=== PATIENT | male | born 1965 | race Caucasian/White ===

== ENCOUNTER 2019-11-27 12:15 | Emergency (ER) | payer OTHER, SELFPAY ==
[2019-11-27 12:19] VITALS: BP 104/76; PULSE 170; RESP 24; TEMP 35.6; O2SAT 98; BMI 30.5
[2019-11-27 12:22] VITALS: BP 104/76; PULSE 170; RESP 24; TEMP 35.6; O2SAT 98
--- NOTE | 2019-11-27 12:44 | EKG12_ITS ---
Test Reason : TACHY Blood Pressure : / mmHG Vent. Rate : 181 BPM Atrial Rate : 178 BPM P-R Int : 000 ms QRS Dur : 078 ms QT Int : 252 ms P-R-T Axes : 000 011 010 degrees QTc Int : 437 ms Supraventricular tachycardia Otherwise normal ECG Confirmed by CLEMENTINE AMADOR, NANCY ([id number]), editor publications ZELDA CONNORS ([id number]) on 11/28/2019 3:07:50 PM Referred By: CESAR Confirmed By:NANCY SPRING MD
--- NOTE | 2019-11-27 12:44 | RAD_ITS ---
STUDY: X-RAY CHEST REASON FOR EXAM: Male, 54 years old. Shortness of breath. Fever. TECHNIQUE: Frontal view of the chest COMPARISON: None. FINDINGS: The lungs are clear. There are no pleural effusions. There is no pneumothorax. The heart is normal in size. The visualized osseous structures are within normal limits. RAD/Chest 1 View (Portable) IMPRESSION: No acute thoracic pathology. Electronically Signed: Margarito Garsia, at 13:41 EDT Tel , Service support ,
--- NOTE | 2019-11-27 12:50 | ED.RN ---
with IV insertion, pt did valsalva maneuver and HR lowered from 180 to 110s.
--- NOTE | 2019-11-27 12:52 | ED.VIS.GEN ---
History of Present Illness Chief Complaint: General Illness Informant: Patient Onset: Days Maximum Severity: Mild Narrative: Patient complaints of rash that consist of small bumps diffusely over his body is primarily his fingertips and hands upper extremity some over the abdomen that began a few days ago indicates the rash is quite pruritic and itchy he is constantly scratching he reports a few days prior to onset of rash had a fever for 2 days it resolved he has had no exposure to coronavirus he has had no cough no chest pain or shortness of breath he is eating and drinking well his health status is normal. Indicates he has history of lymphoma and leukemia he last received chemotherapy in August he did not respond the way his oncologist wanted him to respond to the therapeutic agents and he is undergoing further evaluation by them He has had this rash in the past when he gets it is unclear etiology On arrival to the emergency department he is noted to have a heart rate of 180 he was placed on the monitor he was in a narrow complex rhythm he was able to Valsalva and he flipped into a sinus rhythm before further assessment of the rhythm He has no history no history of SVT A. fib V. tach or cardiovascular disorder he did not even recognize he was tachycardic Past Medical History - Allergies and Home Meds Allergies/Adverse Reactions: Allergies ibrutinib [From Imbruvica] Allergy (Verified 11/27/19 12:18) NEEDS FOLLOW-UP UNABLE TO FUNCTION rituximab Allergy (Verified 11/27/19 12:18) Shortness of breath Primary Care Physician: Regan Garcia MD [Primary Care Provider] - Past Medical History: - - Dana and lymphoma Smoking Status: Former smoker Review of Systems General: Denies: Chills, Fever, Sweats Eyes: Denies: Visual changes - bilaterally, Diplopia ENT: Denies: Rhinorrhea, Sore throat Cardiovascular: Denies: Chest pain, Palpitations Respiratory: Denies: Dyspnea, Cough, Dyspnea on exertion Gastrointestinal: Denies: Abdominal pain, Nausea, Vomiting, Diarrhea, Melena, Hematochezia Genitourinary: Denies: Dysuria, Hematuria, Frequency Musculoskeletal: Denies: Back pain, Extremity Pain Skin: Denies: Rash, Wounds Neurological: Denies: Headache, Weakness, Numbness Allergy: Reports: Uticaria Physical Exam Vital Signs/Narrative: Vital Signs Temp Pulse Resp BP Pulse Ox 05/10/20 12:22 96.1 F L 170 H 24 H 104/76 98 11/27/19 12:19 96.1 F L 170 H 24 H 104/76 98 General: Well nourished, Well developed, No Acute Distress Head: Normocephalic, Atraumatic Eyes: Perrl, EOMI ENT: Moist mucous membranes, No rhinorrhea Neck: Supple, Nontender Cardiovascular: Regular rate, Regular rhythm, No murmurs, - - There was tachycardic to 180 on the EKG and monitor it was narrow complex could have been A. 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 Respiratory: No distress, CTA bilaterally, Chest nontender Abdomen: Soft, Nontender, Nondistended, Normal bowel sounds Back: Nontender, Normal Inspection Extremities: Nontender, No edema Skin: Normal color, - - He has tiny papules measuring a millimeter or 2 primarily to the hands arm some over the anterior abdominal wall some to the lower extremities they are quite pruritic there is no petechia purpura skin breakdown he has chronic changes lower extremities that are unchanged for him no hives his airways unremarkable no lesions to mucous membranes Neurological: Alert, Oriented x3, Cranial nerves II-XII grossly intact, Normal Strength, Normal Sensation Psychological: Normal affect, Normal Mood Diagnostic/Tx/Re-eval - Medical Decision Making The patient presents complaining of pruritic rash his rapid narrow complex tachycardia resolved with Valsalva screening labs IV fluids Benadryl Pepcid Screening labs to include troponin all unremarkable EKG that showed the sinus rhythm about 120 no injury pattern chest x-ray unremarkable on reevaluation is resting comfortably discussed all the above with him he is comfortable with discharge home He understands a T1 exact etiology of the small pruritic bumps are unclear he will be started on Benadryl hydrocortisone ointment to the areas of most involved Pepcid he will be given 1 dose of prednisone 60 mg he will follow-up with his outpatient providers, now with regards to tachycardia he understands he was in a very rapid rhythm the etiology of which is unclear he understands he needs follow-up for that as well and he was given instructions see his outpatient providers and also the referral to cardiology and he will return for all the above symptoms, please note we did discuss coronavirus the patient's had no exposures no symptoms to suggest that in any way the symptoms he currently has is related to coronavirus Home stable Impression final pruritic rash etiology unclear tachycardia resolved ED Disposition - Plan for ED Patient: Diagnosis: Rash, Tachycardia Instructions: ED Erythema, ED Tachycardia PAT, ED Valsalva Maneuver Prescriptions: DiphenhydrAMINE [Benadryl] 25 mg PO TID PRN #14 cap Prescription Printed Famotidine [Pepcid] 20 mg PO BID #28 tab Prescription Printed Referrals: Regan Garcia MD [Primary Care Provider] - Leland Logan MD [STAFF PHYSICIAN] -
[2019-11-27 12:55] LABS: Absolute Lymphocyte Count 0.75 X10^3/uL (0.83-4.51); Absolute Neutrophil Count 2.6 X10^3/uL (2.0-7.7); Basophil# 0.01 X10^3/uL; Basophil% 0.3 % (0-1); Eosinophil# 0.15 X10^3/uL; Hematocrit 43.9 % (40-54); Hemoglobin 14.8 g/dL (13.0-16.5); Lymphocyte # 0.75 X10^3/ul (4.0); Lymphocyte % 20.2 % (19-41); Mean Corp Hgb Conc 33.7 g/dL (32-36); Mean Corpuscular Hgb 31.4 pg (27.0-32.0); Mean Platelet Vol. 10.1 fl (6.2-12.0); Monocyte# 0.16 X10^3/uL; Monocyte% 4.3 % (0-10); NRBC Flagged by Analyzer 0 % (0-5); Neutrophil # 2.63 X10^3/uL (2.7-7.7); Neutrophil % 70.9 % (47-70); POSITIVE COUNT YES; Platelet Count 98 K/mm3 (150-450); RBC Distribution Width CV 14.7 % (11.6-14.6); RBC Distribution Width SD 49.4 fl (35.1-43.9); Red Blood Count 4.72 M/mm3 (4.6-6.2); White Blood Count 3.7 K/mm3 (4.4-11.0)
[2019-11-27 12:56] LABS: Differential Indicated SCAN CRITERIA MET
[2019-11-27] MEDS: 0.9% Normal Saline 1,000 ML 999 ML IV (12:56)
[2019-11-27] MEDS: DiphenhydrAMINE 50 MG/ML Syringe 25 MG IV (12:57)
[2019-11-27 13:08] VITALS: BP 113/86; PULSE 119; RESP 19; O2SAT 96
[2019-11-27 13:09] LABS: Anion Gap 11 (5-15); BUN 29 mg/dL (7-18); BUN/Creat Ratio 21.5 RATIO (10-20); Calcium,Total 9.2 mg/dL (8.5-10.1); Chloride 104 mmol/L (98-107); Creatinine, Serum 1.35 mg/dL (0.70-1.30); EST Glomerular Filtration Rate 58 mL/min (>60); Est Glom Filt Rate - Afr Amer 70 mL/min (>60); Estimated Creatinine Clearance 67.06 ml/min; Glucose 111 mg/dL (74-106); Potassium 4.2 mmol/L (3.5-5.1); Sodium Level 139 mmol/L (136-145)
[2019-11-27 13:17] LABS: Platelet Estimate SLT DEC (ADEQ)
[2019-11-27] MEDS: Famotidine 200 MG/20 ML MDV 20 MG in 0.9% Normal Saline (Pres. free 8 ML 300 MG IV (13:48)
[2019-11-27 13:51] VITALS: BP 112/83; PULSE 98; RESP 14; TEMP 36.7; O2SAT 97
[2019-11-27 14:33] LABS: International Normalized Ratio 1.2; Prothrombin Time (Protime)PT. 14.2 SECONDS (11.7-14.9)
[2019-11-27] MEDS: predniSONE 20 MG Tablet 60 MG PO (14:33)
[2019-11-27 14:34] VITALS: BP 138/77; PULSE 81; RESP 16; TEMP 36.7; O2SAT 98
== END 2019-11-27 14:35 | disposition home or self-care (01) ==
LOC: ED 14:19
PROVIDERS: Emergency Provider Emergency Medicine; PCP Family Medicine
DX: R21 Rash and other nonspecific skin eruption (principal); R00.0 Tachycardia, unspecified; C85.90 Non-Hodgkin lymphoma, unspecified, unspecified site; C95.90 Leukemia, unspecified not having achieved remission; Z87.891 Personal history of nicotine dependence
CPT/HCPCS: 71045; 80048; 84484; 85025; 85610; 93005; 96361; 96374; 99285; J7030; A4216; J3490

== ENCOUNTER 2021-05-01 19:55 | Emergency (ER) | payer OTHER, SELFPAY ==
[2021-05-01 19:56] VITALS: BP 166/123; PULSE 90; RESP 18; TEMP 36.6; O2SAT 97; BMI 31.6
--- NOTE | 2021-05-01 19:59 | RAD_ITS ---
STUDY: X-RAY - LEFT RADIUS AND ULNA REASON FOR EXAM: Male, 55 years old. INJURY TECHNIQUE: Frontal and lateral view(s) of the forearm. COMPARISON: None. FINDINGS: There is no demonstrated soft tissue swelling. There is joint effusion at the elbow with elevation of the fat pads. There is acute fracture of the neck of the radius. Normal visualized ulna. RAD/Forearm 2 Views IMPRESSION: Proximal radius fracture. Electronically Signed: Bari Landrum MD at 21:50 EDT , Service support ,
--- NOTE | 2021-05-01 21:47 | EX.ED.UPPERE ---
HPI History of Present Illness Chief Complaint: Upper Extremity Injury Informant: patient Occured/Mechanism Mechanism/Context: Yes fall Onset/Context/Timing Onset: Today Current Severity: Moderate Maximum Severity: Moderate Narrative Narrative: Patient present secondary left arm pain. Patient states he got off his lawnmower today. As he was heading inside he tripped on the sidewalk and fell forward. He put both hands out to catch himself. He believes his left arm got caught underneath him. He is complaining of what feels like a still the left wrist and then this evening noted increased left elbow pain. He is left-hand dominant. He reports some slight abrasions to his knees but has been able to ambulate without difficulty. He denies striking his head. He is not on anticoagulants. [facility] Medical History (Updated 05/01/21 @ 21:[address] Rose Do MD) Anemia Chronic kidney disease (CKD) Hypersplenism Near syncope (09/2019) Non Hodgkin's lymphoma Obesity Pancytopenia Paroxysmal supraventricular tachycardia (11/27/19) Thrombocytopenia Home Medications metoprolol succinate 50 mg tablet,extended release 24 hr 50 mg PO DAILY #90 tab 02/12/21 [Rx Last Taken Unknown] hydrocodone-acetaminophen 1 tab PO Q6H PRN 4 Days #20 tab 05/01/21 [Rx Last Taken Unknown] Allergy/AdvReac Type Severity Reaction Status Date / Time ibrutinib [From Imbruvica] Allergy dyspnea/diz Verified 02/12/21 16:05 zness rituximab Allergy Shortness Verified 02/12/21 16:05 of breath Surgical History History of bone marrow biopsy Social History Smoking Status: Former smoker ROS ROS ED Constitutional Constitutional ED: Denies chills or fever(s) Eyes Eyes: Denies change in vision ENT ENT ED: Denies sore throat Cardiovascular Cardiovascular: Denies chest pain Respiratory/Chest Respiratory/Chest: Denies cough or dyspnea Gastrointestinal Gastrointestinal: Denies abdominal pain, diarrhea, nausea or vomiting Genitourinary Genitourinary ED: Denies dysuria Musculoskeletal Musculoskeletal: Reports other Details: Left upper extremity pain ; Denies back pain Integumentary Denies rash Neurologic Neurologic: Denies headache(s), paresthesias or weakness Allergic/Immunologic Allergic/Immunologic ED: Denies urticaria EXAM Physical Exam Const Vital Signs: 05/01/21 19:56 Temperature 97.8 F Temperature Source Oral Pulse Rate 90 Respiratory Rate 18 Blood Pressure 166/123 H Blood Pressure Mean 137 Pulse Ox 97 Oxygen Delivery Method Room Air Positive well nourished and well developed General Appearance ED: well developed Eyes PERRL and EOMs intact bilaterally Neck supple Chest Wall inspection of chest normal and palpation of chest normal Resp normal respiratory effort and clear to auscultation bilaterally Cardio regular rate and regular rhythm GI non-tender Palpation: soft Extremity Extremity Narrative: Tenderness location of the left elbow and left wrist. No obvious deformity. Difficulty with pronation supination secondary to pain. Strong distal pulses with normal cap refill distally. Normal sensation. Neuro oriented x3 Sensorium / Orientation: alert Skin Skin Narrative: Superficial abrasions noted over the anterior knees. No bony tenderness with full range of motion. MDM MDM MDM Narrative Medical decision making narrative: Left forearm x-rays were obtained per nursing protocol. Treatment and Re-Evaluation Comments:: Left forearm x-ray per my interpretation reveals a radial head fracture. X-ray results discussed with the patient. Patient is placed in a posterior splint with sugar tong. Following splint application patient has good cap refill distally. Prescription for [place] will be provided and patient referred to orthopedics for follow-up. Discharge Plan Triage Chief Complaint: Upper Extremity Injury ED Provider: Rose Do Dx/Rx/DC Orders Clinical Impression: Closed fracture of head of left radius Instructions: ED Elbow Fracture Prescriptions: New hydrocodone-acetaminophen 5-325 mg tablet 1 tab PO Q6H PRN (Reason: pain) 4 Days Qty: 20 RF: 0 No Action metoprolol succinate [Toprol XL] 50 mg tablet extended release 24 hr 50 mg PO DAILY Qty: 90 RF: 3 Primary Care Provider: Regan Garcia Referrals: Eric Matthews DO [STAFF PHYSICIAN] - 5-7 Days Regan Garica MD [Primary Care Provider] - Disposition Disposition: Home, Self Care
== END 2021-05-01 22:26 | disposition home or self-care (01) ==
PROVIDERS: Emergency Provider Emergency Medicine; PCP Family Medicine
DX: S52.122A Displaced fracture of head of left radius, initial encounter for closed fracture (principal); Z87.891 Personal history of nicotine dependence; W01.0XXA Fall on same level from slipping, tripping and stumbling without subsequent striking against object, initial encounter; Y93.01 Activity, walking, marching and hiking; Y92.096 Garden or yard of other non-institutional residence as the place of occurrence of the external cause; Y99.8 Other external cause status
CPT/HCPCS: 29125; 73090; 99283

== ENCOUNTER 2021-10-18 11:37 | Outpatient (CLI) | payer OTHER, SELFPAY | END 2021-10-18 23:59 | disposition home or self-care (01) | LOC: PSN 11:39 | PROVIDERS: PCP Family Medicine; Referring Provider Internal Medicine Cardiovascular Disease; Visit Provider Internal Medicine Cardiovascular Disease | DX: R00.2 Palpitations (principal) | CPT/HCPCS: 93225; 93226 ==

== ENCOUNTER → 2022-11-05 | Outpatient (CLI) | payer OTHER, SELFPAY ==
[2022-11-05 15:37] LABS: Absolute Lymphocyte Count 1.94 X10^3/uL (0.83-4.51); Absolute Neutrophil Count 1.5 X10^3/uL (2.0-7.7); Basophil# 0.03 X10^3/uL; Basophil% 0.8 % (0-1); Eosinophil# 0.14 X10^3/uL; Eosinophils% 3.7 % (0-5); Hematocrit 41.9 % (40-54); Hemoglobin 13.3 g/dL (13.0-16.5); Lymphocyte # 1.94 X10^3/ul (0.83-4.51); Lymphocyte % 51.9 % (19-41); Mean Corp Hgb Conc 31.7 g/dL (32-36); Mean Corpuscular Hgb 30.2 pg (27.0-32.0); Mean Platelet Vol. 9.7 fl (6.2-12.0); Monocyte# 0.15 X10^3/uL; NRBC Flagged by Analyzer 0 % (0-5); Neutrophil # 1.47 X10^3/uL (2.7-7.7); Neutrophil % 39.3 % (47-70); POSITIVE COUNT YES; Platelet Count 85 K/mm3 (150-450); RBC Distribution Width CV 14.4 % (11.6-14.6); RBC Distribution Width SD 49.4 fl (35.1-43.9); Red Blood Count 4.41 M/mm3 (4.6-6.2); White Blood Count 3.7 K/mm3 (4.4-11.0)
[2022-11-05 16:00] LABS: Differential Indicated SCAN CRITERIA MET
[2022-11-05 16:21] LABS: Platelet Estimate MOD DEC (ADEQ); Red Cell Morphology NORM C+C NORMAL (NORM C&C)
[2022-11-05 16:22] LABS: AST(SGOT) 22 U/L (15-37); Alanine Aminotransfer ALT/SGPT 26 U/L (16-61); Albumin, Serum 3.8 g/dL (3.2-5.0); Alkaline Phosphatase 86 U/L (45-117); Anion Gap 2 (5-15); Anisocytosis RARE; BUN 25 mg/dL (7-18); BUN/Creat Ratio 28.9 RATIO (10-20); Calcium,Total 8.8 mg/dL (8.5-10.1); Chloride 107 mmol/L (98-107); Cholesterol 124 mg/dL (200); Creatinine, Serum 0.87 mg/dL (0.70-1.30); EST Glomerular Filtration Rate 96 mL/min (>60); Est Glom Filt Rate - Afr Amer 116 mL/min (>60); Globulin 3.8 g/dL (2.2-4.2); Glucose 87 mg/dL (74-106); High Density Lipoprotein 33 mg/dL; Macrocytosis RARE; Potassium 3.8 mmol/L (3.5-5.1); Protein, Total 7.6 g/dL (6.4-8.2); Sodium Level 139 mmol/L (136-145); Triglycerides 60 mg/dL; Very Low Density Lipoprotein 12 mg/dL (5-40)
== END | disposition home or self-care (01) ==
LOC: BIMLAB 14:35
PROVIDERS: PCP Internal Medicine; Referring Provider Internal Medicine; Visit Provider Internal Medicine
DX: I10 Essential (primary) hypertension (principal)
CPT/HCPCS: 36415; 80053; 80061; 85025

== ENCOUNTER 2023-09-14 10:42 | Observation (INO) | payer OTHER, SELFPAY ==
[2023-09-14] VITALS (15 sets, daily range): BP systolic 111–145; BP diastolic 67–99; PULSE 70–114; RESP 15–22; TEMP 37.1–39.5; O2SAT 79–100; BMI 30.4; BMI 29.9
--- NOTE | 2023-09-14 11:19 | EKG12_ITS ---
Test Reason : Blood Pressure : / mmHG Vent. Rate : 102 BPM Atrial Rate : 102 BPM P-R Int : 144 ms QRS Dur : 086 ms QT Int : 332 ms P-R-T Axes : 006 025 027 degrees QTc Int : 432 ms Sinus tachycardia Nonspecific ST abnormality Abnormal ECG Confirmed by SHAHID AMADOR, VINCE ([id number]), graphic editor ROLANDA FIELDS ([id number]) on 09/21/2023 9:49:31 AM Referred By: Confirmed By:ADALID KEY MD
--- NOTE | 2023-09-14 11:19 | VDLE_ITS ---
Reason For Study: Left leg pain RIGHT LEFT CFV is compressible, spontaneous, phasic, GSV is normal. competent and demonstrates normal CFV is compressible, spontaneous, phasic, augmentation. competent, and demonstrates normal Procedure augmentation. This is a venous duplex using B-mode, color FV is compressible, spontaneous, phasic, flow and spectral Doppler. competent and demonstrates normal Exam performed portable in ED. augmentation. A preliminary report was called and/or faxed POP V is compressible, spontaneous, phasic, to ED. competent and demonstrates normal augmentation. T/P Trunk is compressible. PTV is compressible. LT PerV is compressible. VL/Venous Duplex US, Unilateral Interpretation Summary There is no evidence of left lower extremity deep vein thrombosis. Left great s aphenous vein appears patent and compressible segmentally. Normal flow patterns right common femoral vein Ordering Physician: Jennifer Lee Referring Physician: Jaquelin Dexter Performed By: Jeanne Joreg RVT
--- NOTE | 2023-09-14 11:19 | CT_ITS ---
STUDY: CTA CHEST REASON FOR EXAM: Male, 58 years old. Hypoxia RADIATION DOSAGE (If Supplied By Facility): CTDIvol = ( 15.40 ) mGy, DLP = ( 554.79 ) mGycm TECHNIQUE: The examination was performed with the intravenous administration of IV 100mL Isovue-370. Post-processing of the angiographic images was performed, with multiplanar reformation and 3D reconstruction. Individualized dose optimization techniques were used for this CT. COMPARISON: None. FINDINGS: Normal enhancement of the main pulmonary artery and right and left pulmonary arteries. Normal enhancement of the bilateral peripheral pulmonary arteries. There is no demonstrated pulmonary embolism. Normal thoracic aorta and visualized great vessels. There is no demonstrated aortic dissection. There are calcifications of the coronary arteries. There are visualized mediastinal lymph nodes, which are within normal size limits, and with normal morphology. Normal hilar regions. Normal visualized trachea and bronchi. Hyperinflation. Emphysematous changes. Normal pleura. Normal chest wall structures. Normal osseous structures. Splenomegaly. CT/CTA Chest W/WO Contrast IMPRESSION: No evidence of pulmonary embolism. Emphysematous changes. Electronically Signed: Tim Lowrey MD at 13:05 EST ,
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
[2023-09-14] MEDS: Ondansetron 4 MG/2 ML Vial IV (11:26)
[2023-09-14] MEDS: Morphine 4 MG/ML Syringe IV (11:26)
[2023-09-14] MEDS: 0.9% Normal Saline (1000mL) 1,000 ML 1000 ML IV (11:27)
[2023-09-14 11:40] LABS: Absolute Lymphocyte Count 1.99 X10^3/uL (0.83-4.51); Absolute Neutrophil Count 0.1 X10^3/uL (2.0-7.7); Eosinophil# 0.02 X10^3/uL; Eosinophils% 0.9 % (0-5); Hematocrit 16.6 % (40-54); Lymphocyte # 1.99 X10^3/ul (0.83-4.51); Lymphocyte % 89.6 % (19-41); Mean Corp Hgb Conc 31.3 g/dL (32-36); Mean Corpuscular Volume 98.8 fL (80-94); Mean Platelet Vol. 10.2 fl (6.2-12.0); Monocyte% 4.5 % (0-10); NRBC Flagged by Analyzer 0 % (0-5); Neutrophil # 0.11 X10^3/uL (2.7-7.7); POSITIVE COUNT YES; POSITIVE DIFFERENTIAL YES; POSITIVE MORPHOLOGY YES; RBC Distribution Width CV 22.7 % (11.6-14.6); Red Blood Count 1.68 M/mm3 (4.6-6.2); White Blood Count 2.2 K/mm3 (4.4-11.0)
[2023-09-14 11:43] LABS: Differential Indicated SCAN CRITERIA MET; Hemoglobin 5.2 g/dL (13.0-16.5); Platelet Count 47 K/mm3 (150-450)
[2023-09-14 12:01] LABS: ALB/GLOB Ratio 0.8 RATIO (0.9-2.4); AST(SGOT) 17 U/L (15-37); Alanine Aminotransfer ALT/SGPT 21 U/L (16-61); Albumin, Serum 3.4 g/dL (3.2-5.0); Alkaline Phosphatase 64 U/L (45-117); Anion Gap 7 (5-15); BUN 28 mg/dL (7-18); BUN/Creat Ratio 20.4 RATIO (10-20); Calcium,Total 8.6 mg/dL (8.5-10.1); Chloride 104 mmol/L (98-107); Creatinine, Serum 1.37 mg/dL (0.70-1.30); EST Glomerular Filtration Rate 56 mL/min (>60); Est Glom Filt Rate - Afr Amer 68 mL/min (>60); Estimated Creatinine Clearance 70.87 ml/min; Globulin 4.4 g/dL (2.2-4.2); Glucose 148 mg/dL (74-106); Potassium 3.6 mmol/L (3.5-5.1); Protein, Total 7.8 g/dL (6.4-8.2); Sodium Level 137 mmol/L (136-145); Troponin-I HS 11 pg/mL (3.0-78.0)
[2023-09-14 12:08] LABS: Differential Comment SCANNED; Hypochromasia 1+; Platelet Estimate MKD DEC (ADEQ); Reactive Lymphocyte 2+
[2023-09-14 12:09] LABS: Anisocytosis 2+; Macrocytosis 1+; Microcytosis 1+
--- NOTE | 2023-09-14 13:55 | ED.RN ---
1350: Pre blood admin VS HR 104 Pulse ox 99% 2 L NC Resp 16 BP 149/77 (94) Temp 102.9 ; ED provider notified
--- NOTE | 2023-09-14 14:07 | NURSING ---
MED SURG TERELETSKY NEUTROPENIC FEVER
--- NOTE | 2023-09-14 14:51 | HP.PCM.HOS_ITS ---
HPI - General General Date of Admission: 09/14/23 Date of Service: 09/14/23 Chief Complaint: Shortness of breath, generalized weakness HPI Narrative DOMI ENAMORADO, is a 58 M who presents to the emergency room at [facility] with complaints of generalized weakness and shortness of breath over the last 3 to 4 days. 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 I talked with Dr. Mitchell by phone today concerning his medical care, his hemoglobin on 09/01/2023 was 7.5. Patient has no diagnosis of pulmonary disease, he denies any history of COPD. Patient denies any black stools or any blood in his stool. Patient denies any history of gastrointestinal bleeding. Workup in the emergency room included a CT of the chest which showed no evidence of pulmonary embolism, there was no evidence of infiltrate, there was evidence of emphysematous changes on the CTA. Patient's white blood cell count was decreased, total neutrophil count was approximately 100, patient's hemoglobin was low at 5.2, platelet count was low at 47,000. Chemistry profile was abnormal for a creatinine of 1.37 and a BUN of 28. Urinalysis is pending at the time of this dictation. Patient was noted to be febrile in the emergency room with a temp of 100.1, patient required 2 L of oxygen via nasal cannula to keep his pulse ox above 90%. Patient will be admitted for neutropenic fever and severe anemia, he will be placed on meropenem, patient was typed and crossed for 2 units of packed red blood cells and will be transfused. I had a discussion with the patient regarding his CODE STATUS, patient does not want to be intubated or resuscitated if his heart should stop or he should stop breathing. [facility] Medical History Anemia Chronic kidney disease (CKD) Contact with and (suspected) exposure to other viral communicable diseases Hypersplenism Hypertension Near syncope (09/2019) Non Hodgkin's lymphoma Obesity Pancytopenia Paroxysmal supraventricular tachycardia (11/27/19) Thrombocytopenia Tobacco abuse counseling Home Medications NK 06/19/23 [History Last Taken Unknown] Allergy/AdvReac Type Severity Reaction Status Date / Time ibrutinib [From Imbruvica] Allergy dyspnea/diz Verified 09/14/23 10:44 zness rituximab Allergy Shortness Verified 09/14/23 10:44 of breath Surgical History History of bone marrow biopsy Social History Smoking Status: Former smoker ROS Constitutional Constitutional: Reports fatigue and weakness; Denies anorexia, change in weight, fever(s) or night sweats Eyes Eyes: Denies blurry vision, change in vision, discharge from eye(s) or eye pain Cardiovascular Cardiovascular: Reports dyspnea on exertion; Denies chest pain, claudication, edema or palpitations Respiratory/Chest Respiratory/Chest: Reports dyspnea, shortness of breath at rest and shortness of breath with exertion; Denies cough or hemoptysis Gastrointestinal Gastrointestinal: Denies abdominal pain, constipation, diarrhea, hematemesis, hematochezia, melena, nausea or vomiting Genitourinary Genitourinary: Denies dysuria, hematuria, urinary frequency, urinary hesitancy, urinary incontinence or urinary urgency Musculoskeletal Musculoskeletal: Denies back pain, joint pain, joint stiffness, joint swelling, myalgias or neck pain Neurologic Neurologic: Denies abnormal gait, abnormal speech, confusion, disequilibrium, dizziness, focal weakness, headache(s), loss of vision, numbness, other visual disturbances, paresthesias, syncope or tingling Psychiatric Psychiatric: Denies anxiety, cognitive impairment, depression, irritability, mood swings or suicidal ideation Endocrine Endocrinology: Denies change in body appearance, cold intolerance, excessive sweating, heat intolerance, polydipsia or polyuria Hematologic/Lymphatic Hematologic/Lymphatic: Denies none, anemia, easy bleeding, easy bruising or lymphadenopathy Allergic/Immunologic Allergic/Immunologic: Denies rhinitis, urticaria, eczemia or asthma Vital Signs Vital Signs Vital Signs: 09/14/23 10:44 09/14/23 11:16 09/14/23 12:00 Temperature 98.7 F 100.1 F H Temperature Source Temporal Oral Pulse Rate 114 H 109 H Respiratory Rate 20 H 15 Respiratory Effort Respiratory Depth Blood Pressure 129/76 H 141/90 H Blood Pressure Mean 93 107 Pulse Ox 79 98 100 Oxygen Delivery Method Room Air Nasal Cannula Nasal Cannula Oxygen Flow Rate (L/min) 2 2 09/14/23 11:19 Temperature Temperature Source Pulse Rate Respiratory Rate Respiratory Effort Short of Breath Labored Respiratory Depth Shallow Blood Pressure Blood Pressure Mean Pulse Ox Oxygen Delivery Method Nasal Cannula Oxygen Flow Rate (L/min) 2 Weight Weight: 102.058 kg Body Mass Index (BMI) 30.4 Physical Exam Const alert, oriented x3, no apparent distress and healthy appearing General Appearance: cooperative, well kempt and well developed Orientation / Consciousness: awake, oriented to person, oriented to place and oriented to time HEENT normocephalic and moist oral mucous membranes Eyes PERRL, EOMs intact bilaterally and conjunctivae normal Neck supple, no JVD, thyroid normal and no carotid bruits General: trachea midline Resp normal respiratory effort, no retractions, no use of accessory muscles and clear to auscultation bilaterally Auscultation: Negative for rales, rhonchi or wheezes Cardio regular rate, regular rhythm, S1 normal heart sound, S2 normal heart sound, no murmurs, no rub and no gallops GI normal to inspection, nondistended, normoactive bowel sounds, soft to palpation, non-tender and non-distended Extremity no clubbing, cyanosis or edema Skin no rashes or lesions noted General Skin Exam: no breakdown Neuro oriented x3, CN's II-XII intact bilaterally, no focal motor deficits and no sensory deficits noted Sensorium / Orientation: awake, alert, oriented to person, oriented to place and oriented to time Speech: speech normal Psych affect normal Results Lab / Micro Data 09/14/23 10:55 09/14/23 10:55 Labs: Laboratory Results - last 24 hr 09/14/23 10:55: WBC 2.2 L, RBC 1.68 L, Hgb 5.2 L*, Hct 16.6 L, MCV 98.8 H, MCH 31.0, MCHC 31.3 L, RDW Std Deviation 80.0 H, RDW Coeff of Екатерина 22.7 H, Plt Count 47 L*, MPV 10.2, Immature Gran % (Auto) 0.000, Neut % (Auto) 5.0 L, Lymph % (Auto) 89.6 H, [place] % (Auto) 4.5, Eos % (Auto) 0.9, Baso % (Auto) 0.0, Absolute Neuts (auto) 0.1 L, Absolute Lymphs (auto) 1.99, Nucleated RBC % 0, Differential Comment SCANNED, Diff Path Review May foll, Reactive Lymphocytes 2+, Platelet Estimate MKD DEC, Hypochromasia 1+, Anisocytosis 2+, Microcytosis 1+, Macrocytosis 1+, Sodium 137, Potassium 3.6, Chloride 104, Carbon Dioxide 26.0, Anion Gap 7, BUN 28 H, Creatinine 1.37 H, Estim Creat Clear Calc 70.87, Est GFR (MDRD) Af Amer 68, Est GFR (MDRD) Non-Af 56 L, BUN/Creatinine Ratio 20.4 H, Glucose 148 H, Calcium 8.6, Total Bilirubin 0.70, AST 17, ALT 21, Alkaline Phosphatase 64, Troponin I High Sens 11, Total Protein 7.8, Albumin 3.4, Globulin 4.4 H, Albumin/Globulin Ratio 0.8 L 09/14/23 12:05: Blood Type O POSITIVE, Antibody Screen NEGATIVE, Crossmatch See Detail Micro: Microbiology 09/14/23 12:16 Mucosa - Nose SARS-CoV-2, Influenza & RSV (PCR) - Final 09/14/23 12:35 Stool Stool Occult Blood (ATA) - Final Imaging Radiology Impression Chest CTA 09/14/23 11:19 IMPRESSION: No evidence of pulmonary embolism. Emphysematous changes. Electronically Signed: Tim Lowery MD at 13:05 [facility] Reading Location ID and State: [address] [place] [address] , Service support , Venous Doppler Study 09/14/23 11:19 Interpretation Summary There is no evidence of left lower extremity deep vein thrombosis. Left great saphenous vein appears patent and compressible segmentally. Normal flow patterns right common femoral vein Ordering Physician: Jennifer Lee Referring Physician: Jaquelin Dexter Performed By: Willinger, Jeanne, RVT Assessment & Plan Assessment/Plan (1) Severe anemia: PLAN: Plan 1. Pancytopenia with severe anemia-felt to be secondary to chemotherapy-induced anemia/pancytopenia on a backdrop of chronic anemia due to lymphoma-patient will be admitted to [facility] 3, he will be given 2 units of packed red blood cells, CBC will be repeated tomorrow. I will do iron studies on the patient and ferritin. #2 neutropenic fever-patient was placed on meropenem, since his last chemother apy was 09/01/2023, he is probably at the radha of his counts, labs will be monitored. Urinalysis is pending at this time. #3 hypoxia-mild, may be secondary to severe anemia-pulse ox will be monitored, oxygen will be titrated off if possible #4 chronic left leg pain and left-sided headache-patient states that he has a history of left leg pain and chronic headaches which are left-sided, he states that he usually takes ibuprofen for this but I told him that again because of his low platelet count he would not be able to take this medication I placed him on [place] instead. He states he was told his chemotherapy may be causing pain in his leg. #5 non-Hodgkin's lymphoma-under active chemotherapy of present time #6 elevated creatinine-BMP will be repeated tomorrow Total clinical time spent by myself addressing the patient's medical issues, reviewing all of his data, and collaborating with patient's care team: 55 minutes Charges/Coding Visit Charges Inpatient E&M: 92737 Init Hosp L2
[2023-09-14] MEDS: Meropenem 1 GM in 0.9% Normal Saline (100mL MB+) 100 ML IV ×2 (15:17→21:31)
[2023-09-14] MEDS: HYDROcodone Bitartrate/Apap 5/325 Tablet PO ×2 (16:22→20:27)
[2023-09-14] MEDS: 0.9% Normal Saline (1000mL) 1,000 ML 100 ML IV (16:32)
[2023-09-14 17:22] LABS: Ferritin 1548 ng/mL (26-388); Iron 42 ug/dL (65-175)
[2023-09-14 22:44] LABS: Bacteria 0 SEEN /hpf (None Seen); Mucous, Urine 0 SEEN /hpf (<or=2+); Squamous Epithelial Cells - UA 0 SEEN /hpf (0-5)
[2023-09-14 22:45] LABS: Color, Urine Yellow (Yellow); Glucose, Dipstick Normal (Normal); Ketone-Dipstick Negative (Negative); Leukocyte Esterase-Dipstick Negative /ul (Negative); Nitrite-Dipstick Negative (Negative); Occult Blood-Urine 25 /ul (Negative); Protein-Dipstick 30 mg/dl (Negative); Urine Bilirubin Dipstick Negative (Negative); Urine Clarity Clear (Clear); Urine Urobilinogen Normal (Normal)
[2023-09-14 23:04] LABS: Red Blood Cells-Urine 0-5 SEEN /hpf (0-5); White Blood Cells 0-5 SEEN /hpf (0-5)
[2023-09-15] VITALS (19 sets, daily range): BP systolic 105–128; BP diastolic 61–91; PULSE 89–149; RESP 15–18; TEMP 36.6–37.7; O2SAT 92–97
[2023-09-15] MEDS: HYDROcodone Bitartrate/Apap 5/325 Tablet PO ×4 (01:07→20:26)
[2023-09-15] MEDS: 0.9% Normal Saline (1000mL) 1,000 ML 100 ML IV ×2 (05:38→20:26)
[2023-09-15] MEDS: Meropenem 1 GM in 0.9% Normal Saline (100mL MB+) 100 ML IV ×3 (05:38→20:27)
[2023-09-15 07:23] LABS: Absolute Lymphocyte Count 1.36 X10^3/uL (0.83-4.51); Absolute Neutrophil Count 0.1 X10^3/uL (2.0-7.7); Eosinophil# 0.01 X10^3/uL; Eosinophils% 0.7 % (0-5); Hematocrit 15.2 % (40-54); Lymphocyte # 1.36 X10^3/ul (0.83-4.51); Lymphocyte % 88.9 % (19-41); Mean Corp Hgb Conc 32.9 g/dL (32-36); Mean Corpuscular Hgb 31.1 pg (27.0-32.0); Mean Corpuscular Volume 94.4 fL (80-94); Monocyte# 0.06 X10^3/uL; Monocyte% 3.9 % (0-10); NRBC Flagged by Analyzer 1.3 % (0-5); Neutrophil % 6.5 % (47-70); POSITIVE COUNT YES; POSITIVE DIFFERENTIAL YES; POSITIVE MORPHOLOGY YES; RBC Distribution Width CV 21.8 % (11.6-14.6); RBC Distribution Width SD 73.1 fl (35.1-43.9); Red Blood Count 1.61 M/mm3 (4.6-6.2); White Blood Count 1.5 K/mm3 (4.4-11.0)
[2023-09-15 07:31] LABS: Differential Indicated SCAN CRITERIA MET; Platelet Count 31 K/mm3 (150-450)
[2023-09-15 07:45] LABS: Anion Gap 7 (5-15); BUN 27 mg/dL (7-18); BUN/Creat Ratio 25.7 RATIO (10-20); Calcium,Total 7.5 mg/dL (8.5-10.1); Chloride 103 mmol/L (98-107); Creatinine, Serum 1.05 mg/dL (0.70-1.30); EST Glomerular Filtration Rate 77 mL/min (>60); Est Glom Filt Rate - Afr Amer 93 mL/min (>60); Estimated Creatinine Clearance 91.72 ml/min; Glucose 115 mg/dL (74-106); Potassium 4.1 mmol/L (3.5-5.1); Sodium Level 133 mmol/L (136-145)
[2023-09-15 09:29] LABS: Differential Comment SCANNED
[2023-09-15 09:30] LABS: Platelet Estimate MKD DEC (ADEQ); Reactive Lymphocyte 1+
[2023-09-15 09:31] LABS: Anisocytosis 2+; Macrocytosis 1+; Microcytosis 1+
--- NOTE | 2023-09-15 10:09 | CASEMGMT ---
TIM ST Assessment Face to Face with patient for initial transition planning/care coordination assessment. TIM ST introduced self and role at [facility], pt voices understanding. Pt is A&Ox4 and is resting comfortably in bed and is calm. Care providers, pharmacy, and demographics verified. Admitting dx: Neutropenic Fever LACE Strata: 2 PCP: Isacc Specialists: Joselo Preferred Pharmacy: [facility] Insurance: [employer] AC[employer] Prescription Benefit: Yes LNOK: Aretha Hastings () Living Arrangements: Pt lives with his and son (30 y/o with CF) in a single story home with a BM with HR and 3 steps to enter the home with no issues. ADLs/IADLs: Ind Transportation: Drives. Pt son and drive DME: Walk in shower with seat. Pt denies all other DME uses or needs. HHC/SNF: Denies history or needs. Pt?s goal: Home Plan: Pt 6-Click is 22. No therapy ordered. Pt states that he is wanting to DC home with no additional needs. Irina Levy RN, CM
[2023-09-15] MEDS: 0.9% Saline Lock 10 ML Syringe IV ×2 (11:56→18:26)
--- NOTE | 2023-09-15 12:19 | PN_ITS ---
Subjective Subjective Patient seen and examined. He had no active complaints. He denied any coughing, fever or chills, nausea or vomiting or any other symptoms. Review of systems otherwise negative. He is on room air. Objective Data Objective Data Vital Signs: Vital Signs Temp Pulse Resp BP Pulse Ox O2 Del Method O2 Flow Rate 98.2 F 106 H 18 113/76 92 Room Air 0.5 09/15/23 12:12 09/15/23 12:12 09/15/23 12:12 09/15/23 12:12 09/15/23 12:12 09/15/23 12:12 09/15/23 01:01 Oxygen Flow Rate (L/min) 0.5 Oxygen Delivery Method Room Air Weight: 221 lb 1.978 oz Body Mass Index (BMI) 29.9 Intake & Output: Intake and Output for Last 24 Hours 09/13/23 09/14/23 09/15/23 23:59 23:59 23:59 Intake Total 1121 / 1521 2340 / 2340 Output Total 200 / 675 875 / 875 Balance 921 / 846 1465 / 1465 Lab / Micro Data 09/15/23 07:04 09/15/23 07:04 Labs: Laboratory Results - last 24 hr 09/14/23 10:55: Iron 42 L, Ferritin 1548 H 09/14/23 12:05: Blood Type O POSITIVE, Antibody Screen NEGATIVE, Crossmatch See Detail 09/14/23 12:05: Crossmatch See Detail 09/14/23 22:35: Urine Color Yellow, Urine Clarity Clear, Urine pH 5.0, Ur Spe cific [place] 1.020, Urine Protein 30 H, Urine Glucose (UA) Normal, Urine Ket ones Negative, Urine Occult Blood 25 H, Urine Nitrite Negative, Urine Bilirubin Negative, Urine Urobilinogen Normal, Ur Leukocyte Esterase Negative, Urine RBC 0-5 SEEN, Urine WBC 0-5 SEEN, Ur Squamous Epith Cells 0 SEEN, Urine Bacteria 0 SEEN, Urine Mucus 0 SEEN 09/15/23 07:04: WBC 1.5 L*, RBC 1.61 L, Hgb 5.0 L*, Hct 15.2 L, MCV 94.4 H, MCH 31.1, MCHC 32.9 D, RDW Std Deviation 73.1 H, RDW Coeff of Екатерина 21.8 H, Plt Count 31 L*, MPV 10.0, Immature Gran % (Auto) 0.000, Neut % (Auto) 6.5 L, Lymph % (Auto) 88.9 H, [place] % (Auto) 3.9, Eos % (Auto) 0.7, Baso % (Auto) 0.0, Absolute Neuts (auto) 0.1 L, Absolute Lymphs (auto) 1.36, Nucleated RBC % 1.3, Differential Comment SCANNED, Diff Path Review May foll, Reactive Lymphocytes 1+, Platelet Estimate MKD DEC, Anisocytosis 2+, Microcytosis 1+, Macrocytosis 1+, Sodium 133 L, Potassium 4.1, Chloride 103, Carbon Dioxide 23.0, Anion Gap 7, BUN 27 H, Creatinine 1.05, Estim Creat Clear Calc 91.72, Est GFR (MDRD) Af Amer 93, Est GFR (MDRD) Non-Af 77, BUN/Creatinine Ratio 25.7 H, Glucose 115 H, Calcium 7.5 L Micro: Microbiology 09/14/23 14:25 Blood Culture (Wb) - Anticubital Right Blood Culture - Preliminary Gram negative lacey 09/14/23 14:55 Blood Culture (Wb) - Anticubital Right Blood Culture - Preliminary Gram negative lacey 09/14/23 12:16 Mucosa - Nose SARS-CoV-2, Influenza & RSV (PCR) - Final 09/14/23 12:35 Stool Stool Occult Blood (ATA) - Final Radiography Diagnostic Testing: Radiology Impression Chest CTA 09/14/23 11:19 IMPRESSION: No evidence of pulmonary embolism. Emphysematous changes. Electronically Signed: Tim Lowery MD at 13:05 EST , Venous Doppler Study 09/14/23 11:19 Interpretation Summary There is no evidence of left lower extremity deep vein thrombosis. Left great saphenous vein appears patent and compressible segmentally. Normal flow patterns right common femoral vein Ordering Physician: Jennifer Lee Referring Physician: Jaquelin Dexter Performed By: Jeanne Jorge RVT Physical Exam Const alert, oriented x3 and no apparent distress General Appearance: cooperative and well developed HEENT normocephalic, head/scalp atraumatic, moist oral mucous membranes and oropharynx normal Eyes PERRL and EOMs intact bilaterally Neck no lymphadenopathy and supple Lymph Lymphatic: no lymphadenopathy noted and no lymphedema noted Resp Resp Narrative: Mildly diminished breath sounds bibasilarly. No wheezes or crackles. On room air. Cardio regular rate, regular rhythm, S1 normal heart sound, S2 normal heart sound and no murmurs GI normal to inspection, nondistended, normoactive bowel sounds, soft to palpation, non-tender and non-distended Extremity normal capillary refill and no calf tenderness Extremity Narrative: has moderate edema with mild calf tenderness of LLE Skin General Skin Exam: no breakdown Neuro CN's II-XII intact bilaterally, no focal motor deficits and no sensory deficits noted Motor Exam: strength 5/5 throughout and general weakness Psych thought process normal and cooperative Appearance: appropriate Assessment & Plan Assessment/Plan (1) Neutropenic fever: PLAN: Plan #Neutropenic fever in the setting of metastatic NHL * Currently on IV meropenem. Blood cultures growing gram-negative rods. Last chemotherapy was 09/01/2023. * Urine showed no evidence of UTI. I would blood culture speciation and continue IV meropenem. #Pancytopenia * Hemoglobin was 5.2 and he was transfused 2 units of packed red blood cells on admission. Hemoglobin now 5. * Likely due to chemotherapy. Last chemotherapy was 09/01/2023. He received Granix afterwards. Repeat hemoglobin today is 5. Will transfuse another 2 units of packed red blood cells. * WBC is 1.5 and platelets are 31. I will watch to see very call. Will discuss with oncology about giving Granix whilst she is in the hospital. * #Chronic left leg pain: Duplex of the left lower extremity was negative for any evidence of DVT. Will monitor. P.o. Tylenol and p.o. oxycodone as needed. #History of metastatic non-Hodgkin's lymphoma: Currently on chemotherapy. Follow-up with oncology on outpatient basis. Elevated creatinine: resolved. CR is down to 1. DVT prophylaxis: SCDs Charges/Coding Visit Charges Inpatient E&M: 07916 Subs Hosp L3
[2023-09-15 13:18] LABS: Pathologist Review Reviewed
[2023-09-15 20:25] LABS: Hematocrit 20.4 % (40-54); Hemoglobin 6.6 g/dL (13.0-16.5); POSITIVE COUNT YES
[2023-09-16] VITALS (7 sets, daily range): BP systolic 113–142; BP diastolic 62–86; PULSE 86–120; RESP 16–18; TEMP 36.4–37.2; O2SAT 93–98
[2023-09-16] MEDS: 0.9% Saline Lock 10 ML Syringe IV ×2 (00:32→05:28)
[2023-09-16] MEDS: HYDROcodone Bitartrate/Apap 5/325 Tablet PO ×4 (00:32→21:21)
[2023-09-16] MEDS: Meropenem 1 GM in 0.9% Normal Saline (100mL MB+) 100 ML IV ×3 (05:26→21:21)
[2023-09-16 06:29] LABS: Absolute Lymphocyte Count 2.45 X10^3/uL (0.83-4.51); Absolute Neutrophil Count 0.1 X10^3/uL (2.0-7.7); Basophil# 0.01 X10^3/uL; Basophil% 0.4 % (0-1); Eosinophil# 0.02 X10^3/uL; Eosinophils% 0.8 % (0-5); Hematocrit 21.8 % (40-54); Hemoglobin 7.1 g/dL (13.0-16.5); Lymphocyte # 2.45 X10^3/ul (0.83-4.51); Lymphocyte % 93.2 % (19-41); Mean Corp Hgb Conc 32.6 g/dL (32-36); Mean Corpuscular Hgb 30.6 pg (27.0-32.0); Monocyte# 0.07 X10^3/uL; Monocyte% 2.7 % (0-10); NRBC Flagged by Analyzer 0 % (0-5); Neutrophil # 0.07 X10^3/uL (2.7-7.7); Neutrophil % 2.5 % (47-70); POSITIVE COUNT YES; POSITIVE DIFFERENTIAL YES; POSITIVE MORPHOLOGY YES; RBC Distribution Width CV 20.1 % (11.6-14.6); RBC Distribution Width SD 66.3 fl (35.1-43.9); Red Blood Count 2.32 M/mm3 (4.6-6.2); White Blood Count 2.6 K/mm3 (4.4-11.0)
[2023-09-16 06:40] LABS: Differential Indicated SCAN CRITERIA MET; Platelet Count 31 K/mm3 (150-450)
[2023-09-16 07:04] LABS: Anion Gap 4 (5-15); BUN 25 mg/dL (7-18); BUN/Creat Ratio 31.3 RATIO (10-20); Calcium,Total 8.4 mg/dL (8.5-10.1); Chloride 108 mmol/L (98-107); EST Glomerular Filtration Rate 105 mL/min (>60); Est Glom Filt Rate - Afr Amer 127 mL/min (>60); Estimated Creatinine Clearance 120.39 ml/min; Glucose 99 mg/dL (74-106); Potassium 3.9 mmol/L (3.5-5.1); Sodium Level 136 mmol/L (136-145)
[2023-09-16 07:50] LABS: Anisocytosis 1+; Differential Comment SCANNED
[2023-09-16 07:51] LABS: Platelet Estimate MKD DEC (ADEQ)
[2023-09-16] MEDS: 0.9% Normal Saline (1000mL) 1,000 ML 100 ML IV ×2 (08:37→18:08)
--- NOTE | 2023-09-16 12:52 | PN_ITS ---
Subjective Subjective Patient seen and examined. He complained of pain in his left hip. He said the pain was worse at night and prevented him from sleeping. He had no other complaints and review of systems otherwise negative. He has remained hemodynamically stable. Objective Data Objective Data Vital Signs: Vital Signs Temp Pulse Resp BP Pulse Ox O2 Del Method O2 Flow Rate 97.6 F L 86 18 124/62 H 96 Room Air 0.5 09/16/23 08:28 09/16/23 08:28 09/16/23 08:28 09/16/23 08:28 09/16/23 08:28 09/16/23 08:28 09/15/23 01:01 Oxygen Flow Rate (L/min) 0.5 Oxygen Delivery Method Room Air Weight: 221 lb 1.978 oz Body Mass Index (BMI) 29.9 Intake & Output: Intake and Output for Last 24 Hours 09/14/23 09/15/23 09/16/23 23:59 23:59 23:59 Intake Total 1121 / 1521 4510.33 / 4510.33 977.67 / 977.67 Output Total 200 / 675 875 / 875 Balance 921 / 846 3635.33 / 3635.33 977.67 / 977.67 Lab / Micro Data 09/16/23 05:55 09/16/23 05:55 Labs: Laboratory Results - last 24 hr 09/14/23 10:55: Diff Path Review Reviewed 09/14/23 12:05: Crossmatch See Detail 09/14/23 12:05: Crossmatch See Detail 09/15/23 20:10: Hgb 6.6 L, Hct 20.4 L 09/16/23 05:55: WBC 2.6 L, RBC 2.32 L, Hgb 7.1 L, Hct 21.8 L, MCV 94.0, MCH 30.6, MCHC 32.6, RDW Std Deviation 66.3 H, RDW Coeff of Екатерина 20.1 H, Plt Count 31 L*, MPV TNP, Immature Gran % (Auto) 0.400, Neut % (Auto) 2.5 L, Lymph % (Auto) 93.2 H, [place] % (Auto) 2.7, Eos % (Auto) 0.8, Baso % (Auto) 0.4, Absolute Neuts (auto) 0.1 L, Absolute Lymphs (auto) 2.45, Nucleated RBC % 0, Differential Comment SCANNED, Diff Path Review November foll, Platelet Estimate MKD DEC, Anisocytosis 1+, Sodium 136, Potassium 3.9, Chloride 108 H, Carbon Dioxide 24.0, Anion Gap 4 L, BUN 25 H, Creatinine 0.80, Estim Creat Clear Calc 120.39, Est GFR (MDRD) Af Amer 127, Est GFR (MDRD) Non-Af 105, BUN/Creatinine Ratio 31.3 H, Glucose 99, Calcium 8.4 L Micro: Microbiology 09/14/23 14:25 Blood Culture (Wb) - Anticubital Right Blood Culture - Preliminary Gram negative lacey 09/14/23 14:55 Blood Culture (Wb) - Anticubital Right Blood Culture - Preliminary Gram negative lacey 09/14/23 12:16 Mucosa - Nose SARS-CoV-2, Influenza & RSV (PCR) - Final 09/14/23 12:35 Stool Stool Occult Blood (ATA) - Final Physical Exam Const alert, oriented x3, no apparent distress and healthy appearing General Appearance: cooperative, well kempt and well developed Orientation / Consciousness: awake, oriented to person, oriented to place and oriented to time HEENT normocephalic, head/scalp atraumatic, moist oral mucous membranes and oropharynx normal Eyes PERRL, EOMs intact bilaterally and conjunctivae normal Neck no lymphadenopathy, supple, no JVD, thyroid normal and no carotid bruits General: trachea midline Lymph Lymphatic: no lymphadenopathy noted and no lymphedema noted Resp normal respiratory effort, no retractions, no use of accessory muscles and clear to auscultation bilaterally Resp Narrative: Mildly diminished breath sounds bibasilarly. No wheezes or crackles. On room air. Auscultation: Negative for rales, rhonchi or wheezes Cardio regular rate, regular rhythm, S1 normal heart sound, S2 normal heart sound, no murmurs, no rub and no gallops GI normal to inspection, nondistended, normoactive bowel sounds, soft to palpation, non-tender and non-distended Extremity normal capillary refill, no clubbing, cyanosis or edema and no calf tenderness Extremity Narrative: has moderate edema with mild calf tenderness of LLE Skin no rashes or lesions noted General Skin Exam: no breakdown Neuro oriented x3, CN's II-XII intact bilaterally, no focal motor deficits and no sensory deficits noted Sensorium / Orientation: awake, alert, oriented to person, oriented to place and oriented to time Speech: speech normal Motor Exam: strength 5/5 throughout and general weakness Psych thought process normal, cooperative and affect normal Appearance: appropriate Assessment & Plan Assessment/Plan (1) Neutropenic fever: PLAN: Plan #Neutropenic fever in the setting of metastatic NHL * Currently on IV meropenem. Blood cultures growing gram-negative rods. Last chemotherapy was 09/01/2023. * Urine showed no evidence of UTI. I would blood culture speciation and cont inue IV meropenem. #Pancytopenia * WBC today is 2.6 and hemoglobin is up to 7.1 after he was transfused with 2 units of packed red blood cells. Platelets are 31 stable. * Since WBC is improving, will hold off on giving Granix. Will monitor. Likely due to chemotherapy. * * #Chronic left leg pain: Duplex of the left lower extremity was negative for any evidence of DVT. Will monitor. P.o. Tylenol and p.o. oxycodone as needed. #History of metastatic non-Hodgkin's lymphoma: Currently on chemotherapy. Follow-up with oncology on outpatient basis. Elevated creatinine: resolved. DVT prophylaxis: SCDs Charges/Coding Visit Charges Inpatient E&M: 21937 Subs Hosp L3
[2023-09-16 13:40] LABS: Pathologist Review Reviewed
--- NOTE | 2023-09-16 14:30 | CASEMGMT ---
Social Work SW met with pt to verify advance directives. Pt states he has completed AD at the oncology office at [facility] and documents are on file there. Phone call to [facility] oncology and inquired about advance directives. Documents faxed to [facility] and SW placed on pt chart. Pt naming is Aretha Hastings as HCPOA. FLOYD Bailey
[2023-09-16] MEDS: MELATONIN 3 MG TABLET PO (21:21)
[2023-09-17] VITALS (7 sets, daily range): BP systolic 122–133; BP diastolic 75–96; PULSE 85–115; RESP 15–18; TEMP 36.4–36.9; O2SAT 95–100
[2023-09-17] MEDS: HYDROcodone Bitartrate/Apap 5/325 Tablet PO ×4 (01:30→14:32)
[2023-09-17] MEDS: 0.9% Normal Saline (1000mL) 1,000 ML 100 ML IV ×2 (04:08→14:27)
[2023-09-17] MEDS: Meropenem 1 GM in 0.9% Normal Saline (100mL MB+) 100 ML IV (06:50)
[2023-09-17 07:52] LABS: Absolute Lymphocyte Count 2.69 X10^3/uL (0.83-4.51); Absolute Neutrophil Count 0.1 X10^3/uL (2.0-7.7); Basophil# 0.01 X10^3/uL; Basophil% 0.3 % (0-1); Eosinophil# 0.02 X10^3/uL; Eosinophils% 0.7 % (0-5); Hematocrit 22.7 % (40-54); Hemoglobin 7.3 g/dL (13.0-16.5); Lymphocyte # 2.69 X10^3/ul (0.83-4.51); Lymphocyte % 94.1 % (19-41); Mean Corp Hgb Conc 32.2 g/dL (32-36); Mean Corpuscular Hgb 30.8 pg (27.0-32.0); Mean Corpuscular Volume 95.8 fL (80-94); Mean Platelet Vol. 9.9 fl (6.2-12.0); Monocyte# 0.06 X10^3/uL; Monocyte% 2.1 % (0-10); NRBC Flagged by Analyzer 0.7 % (0-5); Neutrophil # 0.08 X10^3/uL (2.7-7.7); Neutrophil % 2.8 % (47-70); POSITIVE COUNT YES; POSITIVE DIFFERENTIAL YES; POSITIVE MORPHOLOGY YES; Platelet Count 33 K/mm3 (150-450); RBC Distribution Width CV 19.7 % (11.6-14.6); RBC Distribution Width SD 67.1 fl (35.1-43.9); Red Blood Count 2.37 M/mm3 (4.6-6.2); White Blood Count 2.9 K/mm3 (4.4-11.0)
[2023-09-17 08:19] LABS: Differential Indicated SCAN CRITERIA MET
[2023-09-17 08:20] LABS: Anion Gap 4 (5-15); BUN 18 mg/dL (7-18); BUN/Creat Ratio 23.5 RATIO (10-20); Calcium,Total 8.1 mg/dL (8.5-10.1); Chloride 109 mmol/L (98-107); Creatinine, Serum 0.77 mg/dL (0.70-1.30); EST Glomerular Filtration Rate 110 mL/min (>60); Est Glom Filt Rate - Afr Amer 133 mL/min (>60); Estimated Creatinine Clearance 125.08 ml/min; Glucose 91 mg/dL (74-106); Potassium 3.6 mmol/L (3.5-5.1); Sodium Level 138 mmol/L (136-145)
--- NOTE | 2023-09-17 09:19 | PN_ITS ---
Subjective Subjective Patient seen and examined. He complained of some pain during the night which has now resolved. He has remained hemodynamically stable. BLood cultures growing E coli. Platelets, wbc and Hb have trended up slightly. Objective Data Objective Data Vital Signs: Vital Signs Temp Pulse Resp BP Pulse Ox O2 Del Method O2 Flow Rate 97.6 F L 110 H 16 126/89 H 97 Room Air 0.5 09/17/23 06:00 09/17/23 06:00 09/17/23 06:00 09/17/23 06:00 09/17/23 08:09 09/17/23 08:09 09/15/23 01:01 Oxygen Flow Rate (L/min) 0.5 Oxygen Delivery Method Room Air Weight: 221 lb 1.978 oz Body Mass Index (BMI) 29.9 Intake & Output: Intake and Output for Last 24 Hours 09/15/23 09/16/23 09/17/23 23:59 23:59 23:59 Intake Total 4510.33 / 4510.33 2049.34 / 2049.34 1120 / 1120 Output Total 875 / 875 Balance 3635.33 / 3635.33 2049.34 / 2049.34 1120 / 1120 Lab / Micro Data 09/17/23 07:00 09/17/23 07:00 Labs: Laboratory Results - last 24 hr 09/15/23 07:04: Diff Path Review Reviewed 09/17/23 07:00: WBC 2.9 L, RBC 2.37 L, Hgb 7.3 L, Hct 22.7 L, MCV 95.8 H, MCH 30.8, MCHC 32.2, RDW Std Deviation 67.1 H, RDW Coeff of Екатерина 19.7 H, Plt Count 33 L*, MPV 9.9, Immature Gran % (Auto) 0.000, Neut % (Auto) 2.8 L, Lymph % (Auto) 94.1 H, [place] % (Auto) 2.1, Eos % (Auto) 0.7, Baso % (Auto) 0.3, Absolute Neuts (auto) 0.1 L, Absolute Lymphs (auto) 2.69, Nucleated RBC % 0.7, Sodium 138, Potassium 3.6, Chloride 109 H, Carbon Dioxide 25.0, Anion Gap 4 L, BUN 18, Creatinine 0.77, Estim Creat Clear Calc 125.08, Est GFR (MDRD) Af Amer 133, Est GFR (MDRD) Non-Af 110, BUN/Creatinine Ratio 23.5 H, Glucose 91, Calcium 8.1 L Micro: Microbiology 09/14/23 14:55 Blood Culture (Wb) - Anticubital Right Blood Culture - Preliminary Gram negative lacey 09/14/23 14:25 Blood Culture (Wb) - Anticubital Right Blood Culture - Preliminary Escherichia coli 09/14/23 12:16 Mucosa - Nose SARS-CoV-2, Influenza & RSV (PCR) - Final 09/14/23 12:35 Stool Stool Occult Blood (ATA) - Final Physical Exam Const alert, oriented x3, no apparent distress and healthy appearing General Appearance: cooperative, well kempt and well developed Orientation / Consciousness: awake, oriented to person, oriented to place and oriented to time HEENT normocephalic, head/scalp atraumatic, moist oral mucous membranes and oropharynx normal Eyes PERRL, EOMs intact bilaterally and conjunctivae normal Neck no lymphadenopathy, supple, no JVD, thyroid normal and no carotid bruits General: trachea midline Lymph Lymphatic: no lymphadenopathy noted and no lymphedema noted Resp normal respiratory effort, no retractions, no use of accessory muscles and clear to auscultation bilaterally Resp Narrative: Mildly diminished breath sounds bibasilarly. No wheezes or crackles. On room air. Auscultation: Negative for rales, rhonchi or wheezes Cardio regular rate, regular rhythm, S1 normal heart sound, S2 normal heart sound, no murmurs, no rub and no gallops GI normal to inspection, nondistended, normoactive bowel sounds, soft to palpation, non-tender and non-distended Extremity normal capillary refill, no clubbing, cyanosis or edema and no calf tenderness Extremity Narrative: has moderate edema with mild calf tenderness of LLE Skin no rashes or lesions noted General Skin Exam: no breakdown Neuro oriented x3, CN's II-XII intact bilaterally, no focal motor deficits and no sensory deficits noted Sensorium / Orientation: awake, alert, oriented to person, oriented to place and oriented to time Speech: speech normal Motor Exam: strength 5/5 throughout and general weakness Psych thought process normal, cooperative and affect normal Appearance: appropriate Assessment & Plan Assessment/Plan (1) Neutropenic fever: PLAN: Plan #Neutropenic fever in the setting of metastatic NHL * Currently on IV meropenem. Blood cultures growing E.coli. Last chemotherapy was 09/01/2023. * Urine showed no evidence of UTI. * IV meropenem de-escalated to IV zosyn per sensitivities. ID consulted; await recs * repeat blood cultures ordered #Pancytopenia * WBC today is up to 2.9, with Hb of 7.3 and platelets of 33. * has received 2 units of PRBCs during this admission * WBC is improving. However per discussion with Dr. Josue, his absolute neutrophil count is still on 0.1 so we will start on subcu Granix 480 mg daily with goal of 0.5 absolute neutrophil count. * #Chronic left leg pain: Duplex of the left lower extremity was negative for any evidence of DVT. Will monitor. P.o. Tylenol and p.o. oxycodone as needed. #History of metastatic non-Hodgkin's lymphoma: Currently on chemotherapy. Follow-up with oncology on outpatient basis. Elevated creatinine: resolved. DVT prophylaxis: SCDs Charges/Coding Visit Charges Inpatient E&M: 89157 Subs Hosp L2
[2023-09-17 10:25] LABS: Differential Comment SCANNED; Platelet Estimate MKD DEC (ADEQ); Reactive Lymphocyte 2+
[2023-09-17 10:26] LABS: Anisocytosis 2+; Macrocytosis 1+; Microcytosis 1+
--- NOTE | 2023-09-17 10:31 | CT_ITS ---
STUDY: CT ABDOMEN AND PELVIS WITH CONTRAST REASON FOR EXAM: Male, 58 years old. [facility] RADIATION DOSAGE (If Supplied By Facility): CTDIvol = ( 17.88 ) mGy, DLP = ( 1190.93 ) mGycm TECHNIQUE: Transaxial images were obtained from the dome of the diaphragm to the symphysis pubis without oral contrast. Oral and amp; IV Gastrografin and amp; 100mL Isovue-300 was administered. Sagittal and coronal images were reconstructed. Individualized dose optimization techniques were used for this CT. COMPARISON: None. FINDINGS: Small bilateral pleural effusions with bibasilar atelectasis. The visualized portions of the heart are within normal limits. There is hepatomegaly with diffuse hepatic enlargement. Fatty infiltration of the liver. Multiple small layering gallstones along the dependent wall of the gallbladder. There is moderate splenomegaly. Normal pancreas. Normal bilateral adrenal glands. Normal right kidney. There is a 3.7 cm x 4.1 cm cyst in the anterior midportion of the left kidney. There is also evidence of a 1.5 cm cyst in the lateral midportion of the left kidney. There is a small hiatal hernia. Normal small intestine. There are multiple colonic diverticula consistent with diverticulosis. The appendix is visualized and appears normal. There is scattered atherosclerotic calcification of the abdominal aorta, without a demonstrated aneurysm. Normal inferior vena cava. Normal retroperitoneum. Normal urinary bladder. There are prostatic calcifications. There is a right-sided inguinal hernia containing adipose tissue. Small umbilical hernia containing fat. There are mild degenerative changes of the visualized lumbar spine. CT/Abdomen/Pelvis WITH Contrast IMPRESSION: Hepatosplenomegaly. Multiple layering gallstones. Fatty infiltration of liver. Sigmoid diverticulosis. Small bilateral pleural effusions with bibasilar atelectasis. Left renal cysts. Electronically Signed: Tim Lowery MD at 13:08 EST ,
--- NOTE | 2023-09-17 10:31 | PCM.CONS.GEN ---
Assessment & Plan Assessment/Plan (1) Neutropenic fever: PLAN: Neutropenic fever after recent chemo with ecoli bacteremia - temps improved. ANC remains 0.1. Did get neulasta with chemo per patient. No sinus tenderness, no thrush. Will check CT abd/pelvis due to ecoli bacteremia. Possible it was due to gut translocation. Cont zosyn. Will follow, thank you (2) Non-Hodgkin lymphoma: (3) E. coli bacteremia: HPI Consult Data Date of Consult: 09/17/23 HPI Narrative Reason for Consultation: neutropenic fever HPI Narrative: DOMI ENAMORADO, is a 58 M with NHL, last chemo was 09/01. No port or picc in place. Developed fever, chills, L sided headache, increased edema, dyspnea. Came to ED, admitted on meropenem. Fever to 103.1 here. Feeling better overall, temps improved, headache slightly better. Mild congestion. No sinus pain. Son has cystic fibrosis and gets frequent infections. No abd pain, no dysuria, no n/v/d. Now abx changed to zosyn. Full ROS performed and neg except as noted above. [facility] Medical History Anemia Chronic kidney disease (CKD) Contact with and (suspected) exposure to other viral communicable diseases Hypersplenism Hypertension Near syncope (09/2019) Non Hodgkin's lymphoma Obesity Pancytopenia Paroxysmal supraventricular tachycardia (11/27/19) Thrombocytopenia Tobacco abuse counseling Home Medications acyclovir 400 mg tablet 400 mg PO Q12H cold sore 09/14/23 [History Last Taken 09/14/23] Allergy/AdvReac Type Severity Reaction Status Date / Time ibrutinib [From Imbruvica] Allergy dyspnea/diz Verified 09/14/23 10:44 zness rituximab Allergy Shortness Verified 09/14/23 10:44 of breath Surgical History History of bone marrow biopsy Social History Smoking Status: Former smoker Physical Exam Const alert, oriented x3 and no apparent distress General Appearance: cooperative HEENT normocephalic and head/scalp atraumatic HEENT Narrative: No thrush or oral lesions Eyes PERRL and EOMs intact bilaterally Neck supple and No nodes Resp normal air movement and clear to auscultation bilaterally Cardio regular rate and regular rhythm GI soft to palpation, non-tender and non-distended Extremity General Extremity: edema Skin no rashes or lesions noted Neuro CN's II-XII intact bilaterally Lab / Micro Data Attestation: I reviewed the patient's lab results. 09/17/23 07:00 09/17/23 07:00 Labs: Laboratory Results - last 24 hr 09/15/23 07:04: Diff Path Review Reviewed 09/17/23 07:00: WBC 2.9 L, RBC 2.37 L, Hgb 7.3 L, Hct 22.7 L, MCV 95.8 H, MCH 30.8, MCHC 32.2, RDW Std Deviation 67.1 H, RDW Coeff of Екатерина 19.7 H, Plt Count 33 L*, MPV 9.9, Immature Gran % (Auto) 0.000, Neut % (Auto) 2.8 L, Lymph % (Auto) 94.1 H, [place] % (Auto) 2.1, Eos % (Auto) 0.7, Baso % (Auto) 0.3, Absolute Neuts (auto) 0.1 L, Absolute Lymphs (auto) 2.69, Nucleated RBC % 0.7, Differential Comment SCANNED, Diff Path Review May foll, Reactive Lymphocytes 2+, Platelet Estimate MKD DEC, Anisocytosis 2+, Microcytosis 1+, Macrocytosis 1+, Sodium 138, Potassium 3.6, Chloride 109 H, Carbon Dioxide 25.0, Anion Gap 4 L, BUN 18, Creatinine 0.77, Estim Creat Clear Calc 125.08, Est GFR (MDRD) Af Amer 133, Est GFR (MDRD) Non-Af 110, BUN/Creatinine Ratio 23.5 H, Glucose 91, Calcium 8.1 L Micro: Microbiology 09/14/23 14:55 Blood Culture (Wb) - Anticubital Right Blood Culture - Preliminary Gram negative lacey 09/14/23 14:25 Blood Culture (Wb) - Anticubital Right Blood Culture - Preliminary Escherichia coli
[2023-09-17] MEDS: TBO-FILGRASTIM 480 MCG/0.8 ML ML SC (14:28)
[2023-09-17] MEDS: Piperacil/Tazobactam 3.375 GM in 0.9% Normal Saline (50mL MB+) 50 ML IV ×2 (14:28→21:32)
[2023-09-17] MEDS: 0.9% Saline Lock 10 ML Syringe IV ×2 (14:30→17:28)
[2023-09-17] MEDS: Morphine 4 MG/ML Syringe IV ×2 (17:28→21:30)
[2023-09-18] VITALS (15 sets, daily range): BP systolic 116–174; BP diastolic 77–102; PULSE 70–89; RESP 15–22; TEMP 36.7–37.2; O2SAT 94–100
[2023-09-18] MEDS: HYDROcodone Bitartrate/Apap 5/325 Tablet PO ×3 (00:12→10:16)
[2023-09-18] MEDS: 0.9% Normal Saline (1000mL) 1,000 ML 100 ML IV (02:34)
[2023-09-18] MEDS: Piperacil/Tazobactam 3.375 GM in 0.9% Normal Saline (50mL MB+) 50 ML IV (05:52)
[2023-09-18 07:02] LABS: Anion Gap 4 (5-15); BUN 16 mg/dL (7-18); BUN/Creat Ratio 24.5 RATIO (10-20); Chloride 110 mmol/L (98-107); Creatinine, Serum 0.65 mg/dL (0.70-1.30); EST Glomerular Filtration Rate 132 mL/min (>60); Est Glom Filt Rate - Afr Amer 160 mL/min (>60); Estimated Creatinine Clearance 148.17 ml/min; Glucose 96 mg/dL (74-106); Sodium Level 140 mmol/L (136-145)
[2023-09-18 07:55] LABS: Absolute Lymphocyte Count 2.87 X10^3/uL (0.83-4.51); Absolute Neutrophil Count 0.1 X10^3/uL (2.0-7.7); Basophil# 0.01 X10^3/uL; Basophil% 0.3 % (0-1); Eosinophil# 0.02 X10^3/uL; Eosinophils% 0.6 % (0-5); Hematocrit 20.2 % (40-54); Hemoglobin 6.4 g/dL (13.0-16.5); Lymphocyte # 2.87 X10^3/ul (0.83-4.51); Lymphocyte % 93.2 % (19-41); Mean Corp Hgb Conc 31.7 g/dL (32-36); Mean Corpuscular Hgb 30.3 pg (27.0-32.0); Mean Corpuscular Volume 95.7 fL (80-94); Mean Platelet Vol. 9.8 fl (6.2-12.0); Monocyte# 0.09 X10^3/uL; Monocyte% 2.9 % (0-10); NRBC Flagged by Analyzer 0 % (0-5); Neutrophil # 0.09 X10^3/uL (2.7-7.7); POSITIVE COUNT YES; POSITIVE DIFFERENTIAL YES; POSITIVE MORPHOLOGY YES; RBC Distribution Width CV 19.7 % (11.6-14.6); RBC Distribution Width SD 66.4 fl (35.1-43.9); Red Blood Count 2.11 M/mm3 (4.6-6.2); White Blood Count 3.1 K/mm3 (4.4-11.0)
[2023-09-18 08:21] LABS: Differential Indicated SCAN CRITERIA MET; Platelet Count 30 K/mm3 (150-450)
[2023-09-18 08:22] LABS: Anisocytosis 2+; Differential Comment SCANNED; Macrocytosis 1+; Microcytosis 1+
--- NOTE | 2023-09-18 09:32 | VDLE_ITS ---
Reason For Study: Left leg swelling RIGHT LEFT CFV is compressible, spontaneous, phasic, GSV is normal. competent and demonstrates normal CFV is compressible, spontaneous, phasic, augmentation. competent, and demonstrates normal Procedure augmentation. This is a venous duplex using B-mode, color FV is compressible, spontaneous, phasic, flow and spectral Doppler. competent and demonstrates normal Exam performed portable in patient room. augmentation. A preliminary report was called and/or faxed POP V is compressible, spontaneous, phasic, to Terry DUMONT. competent and demonstrates normal augmentation. T/P Trunk is compressible. PTV is compressible. LT PerV is compressible. VL/Venous Duplex US, Unilateral Interpretation Summary Deep veins of the left lower extremity are patent and compressible segmentally. There is no evidence of left lower extremity deep vein thrombosis. The left great saphenous vein taj ears patent and compressible segmentally. Ordering Physician: Chiara Burger Referring Physician: Jaquelin Dexter Performed By: Jeanne Jorge RVT
[2023-09-18 10:10] LABS: Pathologist Review Reviewed
[2023-09-18] MEDS: TBO-FILGRASTIM 480 MCG/0.8 ML ML SC (10:16)
--- NOTE | 2023-09-18 12:37 | PCM.PROGNOTE ---
Subjective Subjective Patient seen and examined. He still complained of pain and swelling in his RLE. Review of systems is otherwise negative. WBC is trending upwards to 3.1, with hb of 6.4 and platelets are down to 30. Objective Data Objective Data Vital Signs: Vital Signs Temp Pulse Resp BP Pulse Ox O2 Del Method O2 Flow Rate 98.1 F 79 15 116/77 95 Room Air 0.5 09/18/23 02:31 09/18/23 02:31 09/18/23 04:00 09/18/23 02:31 09/18/23 04:00 09/18/23 04:00 09/15/23 01:01 Oxygen Flow Rate (L/min) 0.5 Oxygen Delivery Method Room Air Weight: 221 lb 1.978 oz Body Mass Index (BMI) 29.9 Intake & Output: Intake and Output for Last 24 Hours 09/16/23 09/17/23 09/18/23 23:59 23:59 23:59 Intake Total 2049.34 / 2049.34 2544.25 / 2544.25 1300 / 1300 Balance 2049.34 / 2049.34 2544.25 / 2544.25 1300 / 1300 Lab / Micro Data 09/18/23 05:53 09/18/23 05:53 Labs: Laboratory Results - last 24 hr 09/16/23 05:55: Diff Path Review Reviewed 09/18/23 05:53: WBC 3.1 L, RBC 2.11 L, Hgb 6.4 L, Hct 20.2 L, MCV 95.7 H, MCH 30.3, MCHC 31.7 L, RDW Std Deviation 66.4 H, RDW Coeff of Екатерина 19.7 H, Plt Count 30 L*, MPV 9.8, Immature Gran % (Auto) 0.000, Neut % (Auto) 3.0 L, Lymph % (Auto) 93.2 H, [place] % (Auto) 2.9, Eos % (Auto) 0.6, Baso % (Auto) 0.3, Absolute Neuts (auto) 0.1 L, Absolute Lymphs (auto) 2.87, Nucleated RBC % 0, Differential Comment SCANNED, Diff Path Review May foll, Anisocytosis 2+, Microcytosis 1+, Macrocytosis 1+, Sodium 140, Potassium 4.0, Chloride 110 H, Carbon Dioxide 26.0, Anion Gap 4 L, BUN 16, Creatinine 0.65 L, Estim Creat Clear Calc 148.17, Est GFR (MDRD) Af Amer 160, Est GFR (MDRD) Non-Af 132, BUN/Creatinine Ratio 24.5 H, Glucose 96, Calcium 8.0 L 09/18/23 10:43: Blood Type O POSITIVE, Antibody Screen NEGATIVE, Crossmatch See Detail Micro: Microbiology 09/14/23 14:55 Blood Culture (Wb) - Anticubital Right Blood Culture - Final Gram negative lacey 09/14/23 14:25 Blood Culture (Wb) - Anticubital Right Blood Culture - Final Escherichia coli 09/14/23 12:16 Mucosa - Nose SARS-CoV-2, Influenza & RSV (PCR) - Final 09/14/23 12:35 Stool Stool Occult Blood (ATA) - Final Radiography Diagnostic Testing: Radiology Impression Abdomen/Pelvis CT 09/17/23 10:31 IMPRESSION: Hepatosplenomegaly. Multiple layering gallstones. Fatty infiltration of liver. Sigmoid diverticulosis. Small bilateral pleural effusions with bibasilar atelectasis. Left renal cysts. Electronically Signed: Tim Lowery MD at 13:08 EST , Physical Exam Const alert, oriented x3, no apparent distress and healthy appearing General Appearance: cooperative, well kempt and well developed Orientation / Consciousness: awake, oriented to person, oriented to place and oriented to time HEENT normocephalic, head/scalp atraumatic, moist oral mucous membranes and oropharynx normal Eyes PERRL, EOMs intact bilaterally and conjunctivae normal Neck no lymphadenopathy, supple, no JVD, thyroid normal and no carotid bruits General: trachea midline Lymph Lymphatic: no lymphadenopathy noted and no lymphedema noted Resp normal respiratory effort, normal air movement, no retractions, no use of accessory muscles and clear to auscultation bilaterally Auscultation: Negative for rales, rhonchi or wheezes Cardio regular rate, regular rhythm, S1 normal heart sound, S2 normal heart sound, no murmurs, no rub and no gallops GI normal to inspection, nondistended, normoactive bowel sounds, soft to palpation, non-tender and non-distended Extremity normal capillary refill and no clubbing, cyanosis or edema Extremity Narrative: significant swelling of RLE. No calf tenderness. Swelling extending from right ankle all the way to right groin. Skin no rashes or lesions noted General Skin Exam: no breakdown Neuro oriented x3, CN's II-XII intact bilaterally, no focal motor deficits and no sensory deficits noted Sensorium / Orientation: awake, alert, oriented to person, oriented to place and oriented to time Speech: speech normal Motor Exam: strength 5/5 throughout and general weakness Psych thought process normal, cooperative and affect normal Appearance: appropriate Assessment & Plan Assessment/Plan (1) Neutropenic fever: PLAN: Plan #Neutropenic fever in the setting of metastatic NHL Blood cultures positive for E. coli. Now on IV Zosyn. ID consulted yesterday, CT of the abdomen and pelvis done due to E. coli bacteremia. CT abdomen and pelvis showed hepatosplenomegaly with multiple layering gallstones and fatty infiltration of the liver as well as sigmoid diverticulosis and small bilateral pleural effusions with bibasilar atelectasis. Remains on IV Zosyn. Repeat blood cultures pending. #Pancytopenia WBC today is up to 3.1; hemoglobin did drop to 6.8 and platelets are down to 30. Patient started on subcu Granix for 80 mg daily yesterday after discussion with Dr. Josue as his absolute neutrophil count was 0.1. Absolute neutrophil count remains 0.1 today. Will transfuse due to units of packed red blood cells today. Hematology consulted. Patient request. Dr. Kimble informed verbally. #Chronic left leg pain: Duplex of the left lower extremity was negative for any evidence of DVT. Left lower extremity swelling and edema has worsened today and is extending up to his thigh. Will get another duplex today. #History of metastatic non-Hodgkin's lymphoma: Currently on chemotherapy. Follow-up with oncology on outpatient basis. Elevated creatinine: resolved. DVT prophylaxis: SCDs Charges/Coding Visit Charges Inpatient E&M: 04940 [facility] Hosp L3
--- NOTE | 2023-09-18 13:23 | ONC.CONSULT ---
Assessment & Plan Assessment/Plan (1) Neutropenic fever: Status: Acute Code(s): D70.9 - Neutropenia, unspecified; R50.81 - Fever presenting with conditions classified elsewhere (2) E. coli bacteremia: Status: Acute Code(s): R78.81 - Bacteremia; B96.20 - Unspecified Escherichia coli [E. coli] as the cause of diseases classified elsewhere (3) Pancytopenia: Status: Acute Code(s): D61.818 - Other pancytopenia (4) Non Hodgkin's lymphoma: Status: Chronic Code(s): C85.90 - Non-Hodgkin lymphoma, unspecified, unspecified site Qualifiers: Lymphoma site: multiple regions Non-Hodgkin lymphoma type: non-follicular Non-follicular lymphoma type: other non-follicular type Qualified Code(s): C83.88 - Other non-follicular lymphoma, lymph nodes of multiple sites Plan: Impression: -Pancytopenia--Counts were low starting therapy 09/01-ANC was 0.13, Hgb 7.5 g/dL and plts were 70K. Now 2+ weeks out from first dose obinutuzumab and bendamustine. Expect counts will slowly recover and explained to him may take several more days for ANC to recover since he likely had extensive marrow involvement from lymphoma. -E. coli sepsis on Zosyn. -Reviewed CT images--spleen measures about 18.5 cm in craniocaudal dimension. -Left leg swelling. No DVT. Plan: -Continue filgrastim. -Continue Zosyn. -Monitor counts. -RBC transfusion for Hgb <?7.0 g/dL or higher if symptomatic or bleeding. -Transfuse 1 unit platelets for platelet < 10K or < 20 if febrile or < 50 if actively bleeding. -Discussed wiht Dr. Burger--will get CT left leg. HPI Consult Data Date of Service:: 09/18/23 PCP / Referring Provider: Dr. Jaquelin Dexter MD Attending: Dr. 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 Recently started therapy with obinutuzumab and Bendamustine. Received first infusion of both drugs on 09/01 and 09/02. He received Neulasta on 09/03. Admitted 09/14 After presenting to the ED with complaints of headache, cough and exertional dyspnea. He also had a complaint of left leg swelling from knee distally. He has a history of chronic swelling of the leg but it became more swollen and painful. Ultrasound demonstrated no evidence of deep or superficial thrombus in the left leg. He was found to be pancytopenic and admitted. Blood cultures positive for E. coli. He is currently on Zosyn. E. coli is sensitive. He has been frustrated because his counts have remained low since the time of admission. No fever. Left leg swelling progressing more proximally. Good appetite with no nausea. Loose stool today. Advanced Directives Power of Audit Mgr: Yes Living Will: Yes [facility] Medical History Anemia Chronic kidney disease (CKD) Contact with and (suspected) exposure to other viral communicable diseases Hypersplenism Hypertension Near syncope (09/2019) Non Hodgkin's lymphoma Obesity Pancytopenia Paroxysmal supraventricular tachycardia (11/27/19) Thrombocytopenia Tobacco abuse counseling Home Medications acyclovir 400 mg tablet 400 mg PO Q12H cold sore 09/14/23 [History Last Taken 09/14/23] Allergy/AdvReac Type Severity Reaction Status Date / Time ibrutinib [From Imbruvica] Allergy dyspnea/diz Verified 09/14/23 10:44 zness rituximab Allergy Shortness Verified 09/14/23 10:44 of breath Surgical History History of bone marrow biopsy Social History Smoking Status: Former smoker Physical Exam Const General Appearance: comfortable Eyes no scleral icterus Neck no lymphadenopathy Resp normal respiratory effort Cardio regular rhythm GI GI Narrative: Abdomen is obese and nondistended. Not able to palpate deeply enough to appreciate splenomegaly. Hepatomegaly non-tender. Extremity Extremity Narrative: Left lower extremity is swollen diffusely. Tender. Not warmer than right leg. Very good TP and DP pulses. Vital Signs Temperature 98.1 F 09/18/23 02:31 Temperature Source Oral 09/18/23 02:31 Pulse Rate 79 09/18/23 02:31 Pulse Strength Weak (1+) 09/17/23 22:00 Respiratory Rate 15 09/18/23 04:00 Respiratory Effort Normal, Non-Labored 09/18/23 04:00 Respiratory Depth Normal 09/18/23 04:00 Respiratory Pattern Normal 09/18/23 04:00 Blood Pressure 116/77 09/18/23 02:31 Blood Pressure Mean 90 09/18/23 02:31 Blood Pressure Source Monitor 09/18/23 02:31 Blood Pressure Position Semi-Fowlers 09/18/23 02:31 Blood Pressure Location Right Arm 09/18/23 02:31 Pulse Ox 95 09/18/23 04:00 Oxygen Delivery Method Room Air 09/18/23 04:00 Oxygen Flow Rate (L/min) 0.5 09/15/23 01:01 Laboratory Results - last 24 hr 09/16/23 05:55: Diff Path Review Reviewed 09/18/23 05:53: WBC 3.1 L, RBC 2.11 L, Hgb 6.4 L, Hct 20.2 L, MCV 95.7 H, MCH 30.3, MCHC 31.7 L, RDW Std Deviation 66.4 H, RDW Coeff of Екатерина 19.7 H, Plt Count 30 L*, MPV 9.8, Immature Gran % (Auto) 0.000, Neut % (Auto) 3.0 L, Lymph % (Auto) 93.2 H, [place] % (Auto) 2.9, Eos % (Auto) 0.6, Baso % (Auto) 0.3, Absolute Neuts (auto) 0.1 L, Absolute Lymphs (auto) 2.87, Nucleated RBC % 0, Differential Comment SCANNED, Diff Path Review May foll, Anisocytosis 2+, Microcytosis 1+, Macrocytosis 1+, Sodium 140, Potassium 4.0, Chloride 110 H, Carbon Dioxide 26.0, Anion Gap 4 L, BUN 16, Creatinine 0.65 L, Estim Creat Clear Calc 148.17, Est GFR (MDRD) Af Amer 160, Est GFR (MDRD) Non-Af 132, BUN/Creatinine Ratio 24.5 H, Glucose 96, Calcium 8.0 L 09/18/23 10:43: Blood Type O POSITIVE, Antibody Screen NEGATIVE, Crossmatch See Detail Microbiology 09/14/23 14:55 Blood Culture (Wb) - Anticubital Right Blood Culture - Final Gram negative lacey 09/14/23 14:25 Blood Culture (Wb) - Anticubital Right Blood Culture - Final Escherichia coli Diagnostic Data Chest CTA 09/14/23 11:19 IMPRESSION: No evidence of pulmonary embolism. Emphysematous changes. Electronically Signed: Tim Lowery MD at 13:05 EST , Venous Doppler Study 09/14/23 11:19 Interpretation Summary There is no evidence of left lower extremity deep vein thrombosis. Left great saphenous vein appears patent and compressible segmentally. Normal flow patterns right common femoral vein Ordering Physician: Jennifer Lee Referring Physician: Jaquelin Dexter Performed By: Jeanne Jorge RVT Abdomen/Pelvis CT 09/17/23 10:31 IMPRESSION: Hepatosplenomegaly. Multiple layering gallstones. Fatty infiltration of liver. Sigmoid diverticulosis. Small bilateral pleural effusions with bibasilar atelectasis. Left renal cysts. Electronically Signed: Tim Lowery MD at 13:08 EST ,
--- NOTE | 2023-09-18 14:19 | PCM.PN.ID ---
Physical Exam Narrative Feeling ok, no fever, no abd pain Const alert and no apparent distress General Appearance: cooperative Resp normal air movement and clear to auscultation bilaterally Cardio regular rate and regular rhythm GI soft to palpation, non-tender and non-distended Skin no rashes or lesions noted ID ID: Route of nutrition/ use of supplements: [] Nutritional Intake: [] IV Site: [] Lay Catheter: [] Assessment & Plan Assessment/Plan (1) Neutropenic fever: PLAN: Neutropenic fever after recent chemo with ecoli bacteremia - temps improved. ANC remains 0.1. Did get neulasta with chemo per patient. No sinus tenderness, no thrush. CT abd/pelvis showed no focal infection. Possible it was due to gut translocation. Cont zosyn. Will follow (2) Non-Hodgkin lymphoma: (3) E. coli bacteremia:
[2023-09-18 14:22] LABS: Pathologist Review Reviewed
[2023-09-18 14:22] LABS: Pathologist Review Reviewed
--- NOTE | 2023-09-18 14:26 | CT_ITS ---
CT LEFT LOWER EXTREMITY WITH 3-D IMAGING CLINICAL INDICATION: left lower extremity swelling -- has swelling of entire LLE, needs CT of entire leg TECHNIQUE: Axial CT images of the LEFT lower extremity was performed without IV contrast material. Coronal and sagittal reformats were provided. RADIATION DOSAGE (If Supplied By Facility): CTDIvol = ( 16.92 ) mGy, DLP = ( 2003.08 ) mGycm COMPARISON: FINDINGS: Bones: Osseous structures are normal without evidence of fracture or dislocation. No lytic or blastic osseous masses. Soft Tissues: Subcutaneous edema. This is worse in the lower leg. No evidence of abscess or abnormal fluid collection is seen. Skin thickening. CT/Extremity Lower without Contra IMPRESSION: Diffuse edematous changes of the left lower extremity worse in the left lower leg. No abscess or fluid collection is seen. The underlying bony structures are unremarkable. Electronically Signed: Tim Lowery MD at 15:43 EST ,
[2023-09-18] MEDS: 0.9% Saline Lock 10 ML Syringe IV (21:42)
[2023-09-19] VITALS (13 sets, daily range): BP systolic 119–144; BP diastolic 82–102; PULSE 82–152; RESP 16–22; TEMP 36.2–37.2; O2SAT 93–98
[2023-09-19] MEDS: Piperacil/Tazobactam 3.375 GM in 0.9% Normal Saline (50mL MB+) 50 ML IV ×4 (00:07→21:05)
[2023-09-19] MEDS: 0.9% Normal Saline (1000mL) 1,000 ML 100 ML IV ×3 (00:08→21:15)
--- NOTE | 2023-09-19 01:45 | NURSING ---
09/17 2129-This RN attempted to give patient pain meds. He refused. He rated pain 12/10; however, would not accept any pain meds. This RN asked several times in different ways, but patient still refused.
[2023-09-19] MEDS: Ipratropium/Albuterol Sulfate 3 ML AMPUL.NEB INHALATION (05:26)
[2023-09-19 08:59] LABS: Anion Gap 3 (5-15); BUN 16 mg/dL (7-18); BUN/Creat Ratio 23.8 RATIO (10-20); Calcium,Total 8.7 mg/dL (8.5-10.1); Chloride 111 mmol/L (98-107); Creatinine, Serum 0.67 mg/dL (0.70-1.30); EST Glomerular Filtration Rate 128 mL/min (>60); Est Glom Filt Rate - Afr Amer 155 mL/min (>60); Estimated Creatinine Clearance 143.75 ml/min; Glucose 103 mg/dL (74-106); Sodium Level 140 mmol/L (136-145)
[2023-09-19] MEDS: TBO-FILGRASTIM 480 MCG/0.8 ML ML SC (11:14)
[2023-09-19 12:34] LABS: Absolute Lymphocyte Count 2.23 X10^3/uL (0.83-4.51); Absolute Neutrophil Count 0.1 X10^3/uL (2.0-7.7); Basophil# 0.01 X10^3/uL; Basophil% 0.4 % (0-1); Eosinophil# 0.02 X10^3/uL; Eosinophils% 0.8 % (0-5); Hematocrit 22.6 % (40-54); Hemoglobin 7.1 g/dL (13.0-16.5); Lymphocyte # 2.23 X10^3/ul (0.83-4.51); Lymphocyte % 93.7 % (19-41); Mean Corp Hgb Conc 31.4 g/dL (32-36); Mean Corpuscular Hgb 30.1 pg (27.0-32.0); Mean Corpuscular Volume 95.8 fL (80-94); Monocyte# 0.05 X10^3/uL; Monocyte% 2.1 % (0-10); NRBC Flagged by Analyzer 0 % (0-5); Neutrophil # 0.07 X10^3/uL (2.7-7.7); POSITIVE COUNT YES; POSITIVE DIFFERENTIAL YES; POSITIVE MORPHOLOGY YES; RBC Distribution Width CV 17.9 % (11.6-14.6); RBC Distribution Width SD 59.8 fl (35.1-43.9); Red Blood Count 2.36 M/mm3 (4.6-6.2); White Blood Count 2.4 K/mm3 (4.4-11.0)
[2023-09-19 12:40] LABS: Differential Indicated SCAN CRITERIA MET
[2023-09-19 12:58] LABS: Differential Comment SCANNED; Platelet Estimate MKD DEC (ADEQ); Reactive Lymphocyte 1+
--- NOTE | 2023-09-19 13:12 | PN_ITS ---
Subjective Subjective Patient seen and examined. he had no active complaints. HE had an uneventful night. Review of systems otherwise negative. Objective Data Objective Data Vital Signs: Vital Signs Temp Pulse Resp BP Pulse Ox O2 Del Method O2 Flow Rate 98.9 F 82 20 H 144/87 H 98 Room Air 0.5 09/19/23 11:02 09/19/23 11:02 09/19/23 11:02 09/19/23 11:02 09/19/23 11:02 09/19/23 11:02 09/15/23 01:01 Oxygen Flow Rate (L/min) 0.5 Oxygen Delivery Method Room Air Weight: 221 lb 1.978 oz Body Mass Index (BMI) 29.9 Intake & Output: Intake and Output for Last 24 Hours 09/17/23 09/18/23 09/19/23 23:59 23:59 23:59 Intake Total 2544.25 / 2544.25 2301 / 2301 1400 / 1400 Balance 2544.25 / 2544.25 2301 / 2301 1400 / 1400 Lab / Micro Data 09/19/23 12:18 09/19/23 08:04 Labs: Laboratory Results - last 24 hr 09/17/23 07:00: Diff Path Review Reviewed 09/18/23 05:53: Diff Path Review Reviewed 09/18/23 10:43: Blood Type O POSITIVE, Antibody Screen NEGATIVE, Crossmatch See Detail 09/19/23 08:04: Sodium 140, Potassium 4.0, Chloride 111 H, Carbon Dioxide 26.0, Anion Gap 3 L, BUN 16, Creatinine 0.67 L, Estim Creat Clear Calc 143.75, Est GFR (MDRD) Af Amer 155, Est GFR (MDRD) Non-Af 128, BUN/Creatinine Ratio 23.8 H, Glucose 103, Calcium 8.7 09/19/23 12:18: WBC 2.4 L, RBC 2.36 L, Hgb 7.1 L, Hct 22.6 L, MCV 95.8 H, MCH 30.1, MCHC 31.4 L, RDW Std Deviation 59.8 H, RDW Coeff of Екатерина 17.9 H, Plt Count 24 L*, Immature Gran % (Auto) 0.000, Neut % (Auto) 3.0 L, Lymph % (Auto) 93.7 H, [place] % (Auto) 2.1, Eos % (Auto) 0.8, Baso % (Auto) 0.4, Absolute Neuts (auto) 0.1 L, Absolute Lymphs (auto) 2.23, Nucleated RBC % 0, Differential Comment SCANNED, Diff Path Review May , Reactive Lymphocytes 1+, Platelet Estimate MKD DEC Micro: Microbiology 09/17/23 10:47 Blood Culture (Wb) - Right Hand Blood Culture - Preliminary No growth in 48 hours. 09/17/23 10:44 Blood Culture (Wb) - Left Forearm Blood Culture - Preliminary No growth in 48 hours. 09/14/23 14:55 Blood Culture (Wb) - Anticubital Right Blood Culture - Final Gram negative lacey 09/14/23 14:25 Blood Culture (Wb) - Anticubital Right Blood Culture - Final Escherichia coli 09/14/23 12:16 Mucosa - Nose SARS-CoV-2, Influenza & RSV (PCR) - Final 09/14/23 12:35 Stool Stool Occult Blood (ATA) - Final Radiography Diagnostic Testing: Radiology Impression Lower Extremity CT 09/18/23 14:26 IMPRESSION: Diffuse edematous changes of the left lower extremity worse in the left lower leg. No abscess or fluid collection is seen. The underlying bony structures are unremarkable. Electronically Signed: Tim Lowery MD at 15:43 EST , Physical Exam Const alert, oriented x3, no apparent distress and healthy appearing General Appearance: cooperative, well kempt and well developed Orientation / Consciousness: awake, oriented to person and oriented to place HEENT normocephalic, head/scalp atraumatic, moist oral mucous membranes and oropharynx normal Eyes PERRL, EOMs intact bilaterally and conjunctivae normal Neck no lymphadenopathy, supple, no JVD, thyroid normal and no carotid bruits General: trachea midline Lymph Lymphatic: no lymphadenopathy noted and no lymphedema noted Resp normal respiratory effort, normal air movement, no retractions, no use of accessory muscles and clear to auscultation bilaterally Resp Narrative: Mildly diminished breath sounds bibasilarly. No wheezes or crackles. On room air. Auscultation: Negative for rales, rhonchi or wheezes Cardio regular rate, regular rhythm, S1 normal heart sound, S2 normal heart sound, no murmurs, no rub and no gallops GI normal to inspection, nondistended, normoactive bowel sounds, soft to palpation, non-tender and non-distended Extremity normal capillary refill and no calf tenderness Extremity Narrative: LLE wrapped in GOPI wraps Skin no rashes or lesions noted General Skin Exam: no breakdown Neuro oriented x3, CN's II-XII intact bilaterally, no focal motor deficits and no sensory deficits noted Sensorium / Orientation: awake, alert, oriented to person, oriented to place and oriented to time Speech: speech normal Motor Exam: strength 5/5 throughout and general weakness Psych thought process normal, cooperative and affect normal Appearance: appropriate Assessment & Plan Assessment/Plan (1) Neutropenic fever: PLAN: Plan #Neutropenic fever in the setting of metastatic NHL * Blood cultures positive for E. coli. on IV Zosyn. * ID on board, CT of the abdomen and pelvis done due to E. coli bacteremia. CT abdomen and pelvis showed hepatosplenomegaly with multiple layering gallstones and fatty infiltration of the liver as well as sigmoid diverticulosis and small bilateral pleural effusions with bibasilar atelectasis. * Remains on IV Zosyn. Repeat blood cultures negative. Complete a 7-day course of antibiotics. * #Pancytopenia * WBC is down to 2.4 today hemoglobin is up to 7.1 after he was transfused with blood yesterday. Platelets have dropped further to 24 today. * Patient currently on Granix. * Hematology on board. Await further recs. * * #Chronic left leg pain: * Duplex of the left lower extremity was negative for any evidence of DVT. * Repeat duplex of the left lower extremity showed no DVT and CT of the left l ower extremity without contrast showed only edema. Leg wrapped in Gopi wrap. #History of metastatic non-Hodgkin's lymphoma: Currently on chemotherapy. Follow-up with oncology on outpatient basis. Elevated creatinine: resolved. DVT prophylaxis: SCDs Charges/Coding Visit Charges Inpatient E&M: 96700 Subs Hosp L2
--- NOTE | 2023-09-19 14:32 | EKG12_ITS ---
Test Reason : tachy Blood Pressure : / mmHG Vent. Rate : 136 BPM Atrial Rate : 000 BPM P-R Int : 000 ms QRS Dur : 080 ms QT Int : 306 ms P-R-T Axes : 000 034 059 degrees QTc Int : 460 ms Atrial fibrillation with rapid ventricular response Abnormal ECG When compared with ECG of 14-SEP-2023 10:55, MANUAL COMPARISON REQUIRED, DATA IS UNCONFIRMED Confirmed by Dalton Gannon ([id number]), web content editor DEMI GUSMAN ([id number]) on 09/22/2023 9:45:07 AM Referred By: Tao Confirmed By:Dalton Gannon
--- NOTE | 2023-09-19 15:18 | NURSING ---
report called to Liliana DUMONT who will be receiving this pt.
--- NOTE | 2023-09-19 15:56 | NURSING ---
Message left on 's phone pt was transferred to PCU 124, irreg heart rate, will start him on a drip to regulate the heart, can call this nurse or talk to Liliana Miller RN the nurse in PCU.
[2023-09-19] MEDS: dilTIAZem 25 MG/5 ML Vial IV BOLUS (16:13)
[2023-09-19] MEDS: Metoprolol Tartrate 25 MG Tablet PO ×2 (16:40→21:04)
[2023-09-19] MEDS: guaiFENesin Dm 10 ML UDC PO (17:47)
[2023-09-19] MEDS: Acyclovir 200 MG Capsule 400 MG PO (21:04)
[2023-09-19 22:49] LABS: Platelet Count 24 K/mm3 (150-450)
[2023-09-20] VITALS (30 sets, daily range): BP systolic 116–182; BP diastolic 66–120; PULSE 73–162; RESP 15–26; TEMP 36.3–36.9; O2SAT 20–98
[2023-09-20] MEDS: 0.9% Normal Saline (1000mL) 1,000 ML 100 ML IV (05:55)
[2023-09-20] MEDS: Digoxin 250 MCG/ML Ampul IV (05:56)
[2023-09-20] MEDS: Piperacil/Tazobactam 3.375 GM in 0.9% Normal Saline (50mL MB+) 50 ML IV ×3 (05:56→20:30)
[2023-09-20] MEDS: 0.9% Saline Lock 10 ML Syringe IV ×2 (05:56→11:21)
[2023-09-20 06:54] LABS: Absolute Lymphocyte Count 2.69 X10^3/uL (0.83-4.51); Absolute Neutrophil Count 0.1 X10^3/uL (2.0-7.7); Basophil# 0.01 X10^3/uL; Basophil% 0.3 % (0-1); Eosinophil# 0.02 X10^3/uL; Eosinophils% 0.7 % (0-5); Hematocrit 21.7 % (40-54); Hemoglobin 6.8 g/dL (13.0-16.5); Lymphocyte # 2.69 X10^3/ul (0.83-4.51); Lymphocyte % 93.1 % (19-41); Mean Corp Hgb Conc 31.3 g/dL (32-36); Mean Corpuscular Hgb 29.7 pg (27.0-32.0); Mean Corpuscular Volume 94.8 fL (80-94); Monocyte# 0.07 X10^3/uL; Monocyte% 2.4 % (0-10); NRBC Flagged by Analyzer 0 % (0-5); Neutrophil # 0.09 X10^3/uL (2.7-7.7); Neutrophil % 3.2 % (47-70); POSITIVE COUNT YES; POSITIVE DIFFERENTIAL YES; POSITIVE MORPHOLOGY YES; RBC Distribution Width CV 17.6 % (11.6-14.6); RBC Distribution Width SD 58.1 fl (35.1-43.9); Red Blood Count 2.29 M/mm3 (4.6-6.2); White Blood Count 2.9 K/mm3 (4.4-11.0)
[2023-09-20 07:15] LABS: Anion Gap 3 (5-15); BUN 14 mg/dL (7-18); BUN/Creat Ratio 19.6 RATIO (10-20); Calcium,Total 8.6 mg/dL (8.5-10.1); Chloride 112 mmol/L (98-107); Creatinine, Serum 0.71 mg/dL (0.70-1.30); EST Glomerular Filtration Rate 120 mL/min (>60); Est Glom Filt Rate - Afr Amer 145 mL/min (>60); Estimated Creatinine Clearance 135.65 ml/min; Glucose 100 mg/dL (74-106); Sodium Level 142 mmol/L (136-145)
[2023-09-20 07:28] LABS: Differential Indicated SCAN CRITERIA MET; Platelet Count 21 K/mm3 (150-450)
[2023-09-20] MEDS: Acyclovir 200 MG Capsule 400 MG PO ×2 (08:08→20:29)
[2023-09-20] MEDS: Metoprolol Tartrate 25 MG Tablet PO (08:08)
[2023-09-20 09:23] LABS: Differential Comment SCANNED; Reactive Lymphocyte 1+
[2023-09-20 09:24] LABS: Platelet Estimate MKD DEC (ADEQ)
--- NOTE | 2023-09-20 10:14 | PCM.PROGNOTE ---
Subjective Subjective Patient seen and examined. He had no active complaints. He felt he was getting more puffy from the fluids. Review of systems otherwise negative. His hemoglobin is down to 6.8 today and platelets are also down to 21. Objective Data Objective Data Vital Signs: Vital Signs Temp Pulse Resp BP Pulse Ox O2 Del Method O2 Flow Rate 97.4 F L 104 H 17 116/83 H 97 Room Air 0.5 09/20/23 09:53 09/20/23 09:53 09/20/23 09:53 09/20/23 09:53 09/20/23 09:53 09/20/23 09:53 09/15/23 01:01 Oxygen Flow Rate (L/min) 0.5 Oxygen Delivery Method Room Air Weight: 221 lb 1.978 oz Body Mass Index (BMI) 29.9 Intake & Output: Intake and Output for Last 24 Hours 09/18/23 09/19/23 09/20/23 23:59 23:59 23:59 Intake Total 2301 / 2301 2450 / 2450 1291.67 / 1291.67 Balance 2301 / 2301 2450 / 2450 1291.67 / 1291.67 Lab / Micro Data 09/20/23 06:35 09/20/23 06:35 Labs: Laboratory Results - last 24 hr 09/18/23 10:43: Crossmatch See Detail 09/19/23 12:18: WBC 2.4 L, RBC 2.36 L, Hgb 7.1 L, Hct 22.6 L, MCV 95.8 H, MCH 30.1, MCHC 31.4 L, RDW Std Deviation 59.8 H, RDW Coeff of Екатерина 17.9 H, Plt Count 24 L*, Immature Gran % (Auto) 0.000, Neut % (Auto) 3.0 L, Lymph % (Auto) 93.7 H, [place] % (Auto) 2.1, Eos % (Auto) 0.8, Baso % (Auto) 0.4, Absolute Neuts (auto) 0.1 L, Absolute Lymphs (auto) 2.23, Nucleated RBC % 0, Differential Comment SCANNED, Diff Path Review May , Reactive Lymphocytes 1+, Platelet Estimate MKD DEC 09/20/23 06:35: WBC 2.9 L, RBC 2.29 L, Hgb 6.8 L, Hct 21.7 L, MCV 94.8 H, MCH 29.7, MCHC 31.3 L, RDW Std Deviation 58.1 H, RDW Coeff of Екатерина 17.6 H, Plt Count 21 L*, Immature Gran % (Auto) 0.300, Neut % (Auto) 3.2 L, Lymph % (Auto) 93.1 H, [place] % (Auto) 2.4, Eos % (Auto) 0.7, Baso % (Auto) 0.3, Absolute Neuts (auto) 0.1 L, Absolute Lymphs (auto) 2.69, Nucleated RBC % 0, Differential Comment SCANNED, Diff Path Review May foll, Reactive Lymphocytes 1+, Platelet Estimate MKD DEC, Sodium 142, Potassium 4.0, Chloride 112 H, Carbon Dioxide 27.0, Anion Gap 3 L, BUN 14, Creatinine 0.71, Estim Creat Clear Calc 135.65, Est GFR (MDRD) Af Amer 145, Est GFR (MDRD) Non-Af 120, BUN/Creatinine Ratio 19.6, Glucose 100, Calcium 8.6 Micro: Microbiology 09/17/23 10:47 Blood Culture (Wb) - Right Hand Blood Culture - Preliminary No growth in 48 hours. 09/17/23 10:44 Blood Culture (Wb) - Left Forearm Blood Culture - Preliminary No growth in 48 hours. 09/14/23 14:55 Blood Culture (Wb) - Anticubital Right Blood Culture - Final Gram negative lacey 09/14/23 14:25 Blood Culture (Wb) - Anticubital Right Blood Culture - Final Escherichia coli 09/14/23 12:16 Mucosa - Nose SARS-CoV-2, Influenza & RSV (PCR) - Final 09/14/23 12:35 Stool Stool Occult Blood (ATA) - Final Physical Exam Const alert, oriented x3, no apparent distress and healthy appearing General Appearance: cooperative, well kempt and well developed Orientation / Consciousness: awake, oriented to person, oriented to place and oriented to time HEENT normocephalic, head/scalp atraumatic, moist oral mucous membranes and oropharynx normal Eyes PERRL, EOMs intact bilaterally and conjunctivae normal Neck no lymphadenopathy, supple, no JVD, thyroid normal and no carotid bruits General: trachea midline Lymph Lymphatic: no lymphadenopathy noted and no lymphedema noted Resp normal respiratory effort, normal air movement, no retractions, no use of accessory muscles and clear to auscultation bilaterally Resp Narrative: Mildly diminished breath sounds bibasilarly. No wheezes or crackles. On room air. Auscultation: Negative for rales, rhonchi or wheezes Cardio S1 normal heart sound, S2 normal heart sound, no murmurs, no rub and no gallops Cardio Narrative: A-fib poor rate control. GI normal to inspection, nondistended, normoactive bowel sounds, soft to palpation, non-tender and non-distended Extremity normal capillary refill and no calf tenderness Extremity Narrative: bilateral lower extremity edema, worse on the right than the left. General Extremity: no tenderness to palpation of joints or extremities Skin no rashes or lesions noted General Skin Exam: no breakdown Neuro oriented x3, CN's II-XII intact bilaterally, no focal motor deficits and no sensory deficits noted Sensorium / Orientation: awake, alert, oriented to person, oriented to place and oriented to time Speech: speech normal Motor Exam: strength 5/5 throughout and general weakness Psych thought process normal, cooperative and affect normal Appearance: appropriate Assessment & Plan Assessment/Plan (1) Neutropenic fever: PLAN: Plan #Neutropenic fever in the setting of metastatic NHL Blood cultures positive for E. coli. on IV Zosyn. will complete a 7 day course ID on board, CT of the abdomen and pelvis done due to E. coli bacteremia. CT abdomen and pelvis showed hepatosplenomegaly with multiple layering gallstones and fatty infiltration of the liver as well as sigmoid diverticulosis and small bilateral pleural effusions with bibasilar atelectasis. Remains on IV Zosyn. Repeat blood cultures negative. Complete a 7-day course of antibiotics. #Pancytopenia WBC slightly up to 2.9 today. However absolute neutrophil count remains 0.1. Hemoglobin is down 6.3 and platelets are down to 21. Patient remains on Granix for 80 mg daily. Will transfuse with 1 unit of packed red blood cells. Hematology oncology on board. #New onset A-fib with RVR Patient developed new onset A-fib with RVR yesterday. Has no history of A-fib. Heart rate remains in the 120s and 130s. Started on metoprolol. Did receive Cardizem bolus and digoxin overnight. 2D echo ordered. Will commence on Cardizem drip if heart rate remains elevated. Unable to anticoagulate due to patient's anemia and thrombocytopenia. Patient counseled that he is at a high risk of stroke in light of the new diagnosis of A-fib. #Chronic left leg pain: Duplex of the left lower extremity was negative for any evidence of DVT. Repeat duplex of the left lower extremity showed no DVT and CT of the left lower extremity without contrast showed only edema. Leg wrapped in Gopi wrap. #History of metastatic non-Hodgkin's lymphoma: Currently on chemotherapy. Per hematology, lymphoma as likely significantly infiltrated his bone marrow leading to the protracted pancytopenia. Follow-up with oncology on outpatient basis. Elevated creatinine: resolved. DVT prophylaxis: SCDs Charges/Coding Visit Charges Inpatient E&M: 32821 Subs Hosp L3
[2023-09-20] MEDS: Furosemide 40 MG/4 ML Vial IV (11:21)
[2023-09-20] MEDS: TBO-FILGRASTIM 480 MCG/0.8 ML ML SC (11:21)
[2023-09-20] MEDS: Diltiazem 125 MG in Dextrose 5%-Water (100mL Bag) 100 ML CONT INF (12:48)
[2023-09-20] MEDS: Metoprolol Tartrate 5 MG/5 ML Vial IV (18:36)
--- NOTE | 2023-09-20 19:49 | EKG12_ITS ---
Test Reason : Rhythm change Blood Pressure : / mmHG Vent. Rate : 071 BPM Atrial Rate : 071 BPM P-R Int : 188 ms QRS Dur : 088 ms QT Int : 398 ms P-R-T Axes : 025 019 033 degrees QTc Int : 432 ms Sinus rhythm with Premature atrial complexes Otherwise normal ECG When compared with ECG of 19-SEP-2023 14:35, AFIB NO LONGER PRESENT Confirmed by Dalton Gannon ([id number]), associate editor ROLANDA FIELDS ([id number]) on 09/22/2023 7:49:30 AM Referred By: Blunt Confirmed By:Dalton Gannon
[2023-09-20] MEDS: dilTIAZem CD 240 MG Capsule PO (20:29)
[2023-09-20] MEDS: guaiFENesin Dm 10 ML UDC PO (20:35)
[2023-09-21 03:00] VITALS: BP 123/72; PULSE 72; RESP 14; TEMP 36.8; O2SAT 95
[2023-09-21] MEDS: Piperacil/Tazobactam 3.375 GM in 0.9% Normal Saline (50mL MB+) 50 ML IV ×2 (05:11→14:29)
[2023-09-21 06:52] LABS: Absolute Lymphocyte Count 2.91 X10^3/uL (0.83-4.51); Absolute Neutrophil Count 0.1 X10^3/uL (2.0-7.7); Basophil# 0.01 X10^3/uL; Basophil% 0.3 % (0-1); Eosinophil# 0.02 X10^3/uL; Eosinophils% 0.6 % (0-5); Hematocrit 21.9 % (40-54); Hemoglobin 7.1 g/dL (13.0-16.5); Lymphocyte # 2.91 X10^3/ul (0.83-4.51); Lymphocyte % 94.2 % (19-41); Mean Corp Hgb Conc 32.4 g/dL (32-36); Mean Corpuscular Hgb 30.2 pg (27.0-32.0); Mean Corpuscular Volume 93.2 fL (80-94); Monocyte# 0.05 X10^3/uL; Monocyte% 1.6 % (0-10); NRBC Flagged by Analyzer 0 % (0-5); Neutrophil # 0.09 X10^3/uL (2.7-7.7); POSITIVE COUNT YES; POSITIVE DIFFERENTIAL YES; POSITIVE MORPHOLOGY YES; RBC Distribution Width CV 17.6 % (11.6-14.6); RBC Distribution Width SD 57.3 fl (35.1-43.9); Red Blood Count 2.35 M/mm3 (4.6-6.2); White Blood Count 3.1 K/mm3 (4.4-11.0)
[2023-09-21 07:06] LABS: Differential Indicated SCAN CRITERIA MET; Platelet Count 20 K/mm3 (150-450)
[2023-09-21 07:11] LABS: Anion Gap 3 (5-15); BUN 19 mg/dL (7-18); BUN/Creat Ratio 27.3 RATIO (10-20); Calcium,Total 8.7 mg/dL (8.5-10.1); Chloride 110 mmol/L (98-107); EST Glomerular Filtration Rate 123 mL/min (>60); Est Glom Filt Rate - Afr Amer 149 mL/min (>60); Estimated Creatinine Clearance 137.59 ml/min; Glucose 99 mg/dL (74-106); Potassium 3.9 mmol/L (3.5-5.1); Sodium Level 141 mmol/L (136-145)
--- NOTE | 2023-09-21 08:44 | PN.HOSP_ITS ---
Reason for Visit Reason for Visit: Diagnoses Unspecified Escherichia coli [E. coli] as the cause of diseases classified else where (09/14/23) Other non-follicular lymphoma, lymph nodes of multiple sites (09/14/23) Non-Hodgkin lymphoma, unspecified, unspecified site (09/14/23) Other pancytopenia (09/14/23) Anemia, unspecified (09/14/23) Neutropenia, unspecified (09/14/23) Fever presenting with conditions classified elsewhere (09/14/23) Bacteremia (09/14/23) Objective Data Objective Data Vital Signs: Vital Signs Temp Pulse Resp BP Pulse Ox O2 Del Method O2 Flow Rate 98.2 F 72 14 123/72 H 95 Room Air 0.5 09/21/23 03:00 09/21/23 03:00 09/21/23 03:00 09/21/23 03:00 09/21/23 03:00 09/21/23 08:00 09/15/23 01:01 Oxygen Flow Rate (L/min) 0.5 Oxygen Delivery Method Room Air Weight: 221 lb 1.978 oz Body Mass Index (BMI) 29.9 Intake & Output: Intake and Output for Last 24 Hours 09/19/23 09/20/23 09/21/23 23:59 23:59 23:59 Intake Total 2450 / 2450 1500.47 / 1500.47 50 / 50 Output Total 1000 / 1000 Balance 2450 / 2450 500.47 / 500.47 50 / 50 Lab / Micro Data 09/21/23 06:33 09/21/23 06:33 Labs: Laboratory Results - last 24 hr 09/18/23 10:43: Crossmatch See Detail 09/20/23 06:35: Differential Comment SCANNED, Diff Path Review May , Reactive Lymphocytes 1+, Platelet Estimate MKD DEC 09/21/23 06:33: WBC 3.1 L, RBC 2.35 L, Hgb 7.1 L, Hct 21.9 L, MCV 93.2, MCH 30.2, MCHC 32.4, RDW Std Deviation 57.3 H, RDW Coeff of Екатерина 17.6 H, Plt Count 20 L*, MPV 9.0, Immature Gran % (Auto) 0.300, Neut % (Auto) 3.0 L, Lymph % (Auto) 94.2 H, [place] % (Auto) 1.6, Eos % (Auto) 0.6, Baso % (Auto) 0.3, Absolute Neuts (auto) 0.1 L, Absolute Lymphs (auto) 2.91, Nucleated RBC % 0, Sodium 141, Potassium 3.9, Chloride 110 H, Carbon Dioxide 28.0, Anion Gap 3 L, BUN 19 H, Creatinine 0.70, Estim Creat Clear Calc 137.59, Est GFR (MDRD) Af Amer 149, Est GFR (MDRD) Non-Af 123, BUN/Creatinine Ratio 27.3 H, Glucose 99, Calcium 8.7 Micro: Microbiology 09/17/23 10:47 Blood Culture (Wb) - Right Hand Blood Culture - Preliminary No growth in 48 hours. 09/17/23 10:44 Blood Culture (Wb) - Left Forearm Blood Culture - Preliminary No growth in 48 hours. 09/14/23 14:55 Blood Culture (Wb) - Anticubital Right Blood Culture - Final Gram negative lacey 09/14/23 14:25 Blood Culture (Wb) - Anticubital Right Blood Culture - Final Escherichia coli 09/14/23 12:16 Mucosa - Nose SARS-CoV-2, Influenza & RSV (PCR) - Final 09/14/23 12:35 Stool Stool Occult Blood (ATA) - Final Radiography Diagnostic Testing: Radiology Impression Venous Doppler Study 09/18/23 09:32 Interpretation Summary Deep veins of the left lower extremity are patent and compressible segmentally. There is no evidence of left lower extremity deep vein thrombosis. The left great saphenous vein appears patent and compressible segmentally. Ordering Physician: Chiara Burger Referring Physician: Jaquelin Dexter Performed By: Jeanne Jorge RVT Assessment & Plan Assessment/Plan (1) Neutropenic fever: PLAN: Plan 58-year-old gentleman admitted with generalized weakness and shortness of breath for 3 to 4 days. 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 His hemoglobin A1c has been low at requiring multiple transfusion, 8 so far. #Neutropenic fever in the setting of metastatic NHL * Blood cultures positive for E. coli. on IV Zosyn. will complete a 7 day course * ID on board, CT of the abdomen and pelvis done due to E. coli bacteremia. CT abdomen and pelvis showed hepatosplenomegaly with multiple layering gallstones and fatty infiltration of the liver as well as sigmoid diverticulosis and small bilateral pleural effusions with bibasilar atelectasis. * Remains on IV Zosyn. Repeat blood cultures negative. Complete a 7-day course of antibiotics. * #Pancytopenia * WBC slightly up to 2.9 today. However absolute neutrophil count remains 0.1. Hemoglobin is down 6.3 and platelets are down to 21. * Patient remains on Granix for 80 mg daily. Will transfuse with 1 unit of packed red blood cells. * Hematology oncology on board. * #New onset A-fib with RVR * Patient developed new onset A-fib with RVR yesterday. Has no history of A- fib. Heart rate remains in the 120s and 130s. Started on metoprolol. Did receive Cardizem bolus and digoxin overnight. CTA of the chest did not show evidence of infiltrate but emphysematous changes. * 2D echo ordered. Will commence on Cardizem drip if heart rate remains elev ated. * Unable to anticoagulate due to patient's anemia and thrombocytopenia. Patient counseled that he is at a high risk of stroke in light of the new diagnosis of A-fib. * #Chronic left leg pain: * Duplex of the left lower extremity was negative for any evidence of DVT. * Repeat duplex of the left lower extremity showed no DVT and CT of the left lower extremity without contrast showed only edema. * Leg wrapped in Gopi wrap. #History of metastatic non-Hodgkin's lymphoma: Patient was evaluated by oncologist Dr. Woodruff. None follicular type NHL. Patient had first dose of obinutuzumab and bendamustine more than 2 weeks from day of admission. * Currently on chemotherapy. * Per hematology, lymphoma as likely significantly infiltrated his bone marrow leading to the protracted pancytopenia. * Follow-up with oncology on outpatient basis. Elevated creatinine: resolved. DVT prophylaxis: SCDs
[2023-09-21 09:00] VITALS: BP 142/77; PULSE 79; RESP 17; TEMP 36.5; O2SAT 95
[2023-09-21 09:23] VITALS: PULSE 79
[2023-09-21] MEDS: dilTIAZem CD 240 MG Capsule PO (09:23)
[2023-09-21] MEDS: Metoprolol Tartrate 50 MG Tablet PO (09:23)
[2023-09-21] MEDS: Acyclovir 200 MG Capsule 400 MG PO (09:24)
[2023-09-21 10:30] VITALS: BP 136/79
[2023-09-21] MEDS: Furosemide 40 MG/4 ML Vial IV (10:32)
[2023-09-21] MEDS: TBO-FILGRASTIM 480 MCG/0.8 ML ML SC (10:32)
--- NOTE | 2023-09-21 10:58 | ECHOCS_ITS ---
Reason For Study: SOB Procedure This was a 2D Doppler, Color Flow transthoracic echocardiogram. Exam performed portable in patient room. Left Ventricle Normal LV size. Mild concentric left ventricular hypertrophy. The left ventricular ejection fraction is 65 %. Stage 2 diastolic dysfunction. Right Ventricle Normal right ventricle. Atria The left atrium is mildly enlarged. Normal right atrium. Mitral Valve Trivial mitral valve insufficiency. Tricuspid Valve Mild tricuspid valve insufficiency. Right ventricular systolic pressure estimated to be 47 mmHg. Aortic Valve Trisinus/trileaflet aortic valve. Pulmonic Valve Trivial pulmonic valve insufficiency. Great Vessels Mildly dilated aortic root. Pericardium/Pleural No pericardial effusion. MMode/2D Measurements & Calculations LVIDd: 5.6 cm IVSd: 1.3 cm Ao root diam: 3.6 cm LVIDs: 3.3 cm LVPWd: 1.1 cm RVDd: 3.9 cm FS: 40.7 % LAV(MOD-bp): 77.4 ml LVAd ap4: 36.6 cm2 LVAd ap2: 33.4 cm2 LAV(MOD-bp) Indexed: 34.9 ml/m2 LVLd ap4: 9.4 cm LVLd ap2: 9.0 cm LAV(MOD-sp2): 68.6 ml EDV(MOD-sp4): 121.0 ml EDV(MOD-sp2): 105.7 ml LAV(MOD-sp4): 71.4 ml EDV(sp4-el): 121.9 ml EDV(sp2-el): 105.0 ml LVAs ap4: 20.6 cm2 LVAs ap2: 16.5 cm2 LVLs ap4: 8.1 cm LVLs ap2: 7.3 cm ESV(MOD-sp4): 46.1 ml ESV(MOD-sp2): 31.1 ml ESV(sp4-el): 44.5 ml ESV(sp2-el): 31.7 ml EF(MOD-sp4): 61.9 % EF(MOD-sp2): 70.6 % EF(sp4-el): 63.5 % SV(MOD-sp4): 74.9 ml SV(MOD-sp2): 74.6 ml SV(sp4-el): 77.4 ml LA dimension(2D): 4.4 cm LA A4 area: 24.6 cm2 RA A4 area: 20.9 cm2 TAPSE: 2.3 cm Time Measurements MV dec time: 0.23 sec Doppler Measurements & Calculations MV E max flash: 95.3 cm/sec Lat Peak E' Flash: 11.9 cm/sec Med Peak E' Flash: 7.8 cm/sec MV A max flash: 56.9 cm/sec E/E' lat: 8.0 E/E' med: 12.3 MV E/A: 1.7 MV dec slope: 409.1 cm/sec2 Ao V2 max: 159.2 cm/sec LV V1 max: 122.2 cm/sec Ao max P.1 mmHg LV V1 max P.0 mmHg Ao V2 mean: 112.2 cm/sec LV V1 mean P.6 mmHg Ao mean P.7 mmHg LV V1 mean: 89.0 cm/sec Ao V2 VTI: 35.0 cm LV V1 VTI: 28.1 cm AV (velocity ratio): 0.80 PA V2 max: 90.7 cm/sec TR max flash: 281.0 cm/sec TR max P.6 mmHg ECHO/Echo Complete W/ Contrast Interpretation Summary Mild concentric left ventricular hypertrophy. The left ventricular ejection fraction is 65 %. Stage 2 diastolic dysfunction. The left atrium is mildly enlarged. Mild tricuspid valve insufficiency. Right ventricular systolic pressure estimated to be 47 mmHg. Mildly dilated aortic root. Ordering Physician: Nazario Bañuelos Referring Physician: Jaquelin Dexter Performed By: Orquidea Savage RDCS
--- NOTE | 2023-09-21 11:23 | DCINST_ITS ---
Discharge Instructions Diet Discharge Diet: No restrictions Activity Discharge Activity: Return to Normal Activity Weight Bearing Status: Weight bearing as tolerated Dressing / Incision Call your doctor if you observe: Fever of 101 or Higher, Coldness, Increased Pain, Numbness or Tingling, Change in Color, Inability to urinate, Inability to have a bowel movement, Shortness of breath, Dizziness, Fainting spells, Swelling in the ankles, Chest pain, Prolonged hiccupping, Increased palpitations (irregular heartbeat) and Calf discomfort Follow Up Care When: IN 2 WEEKS Test Results: Test results from this visit will be discussed in further detail at your follow- up appointment, if applicable. Discharge Plan Admission Admit Date/Time: 09/14/23 14:18 Primary Reason for Your Visit: Neutropenic fever, E. coli bacteremia. Metast [facility] NHL Attending Provider: Nazario Bañuelos Primary Care Provider: Jaquelin Dexter Consulting Providers: Rico Gonzales; Brice Montesinso; Eric Smart; Dima Josue; Nancy Hatfield; Caleb Leiva; Krissy Medellin; Sin Posey; Curt Mitchell; Chiara Burger Discharge Orders/Prescriptions Prescriptions: New diltiazem HCl 240 mg Capsule,Extended Release 24hr 240 mg PO DINNER 30 Days Qty: 30 3RF metoprolol succinate 100 mg tablet extended release 24 hr 100 mg PO DAILY 30 Days Qty: 30 3RF Continued acyclovir 400 mg tablet 400 mg PO Q12H Patient Comments: TAKE 1 TABLET BY MOUTH TWICE A DAY Referrals / Follow Up: Jaquelin Dexter MD [Primary Care Provider] - Dalton Gannon MD [Med Staff - Active Staff] - Within 1 Month (New onset A-fib possible heart failure) Curt Mitchell DO [Med Staff - Active Staff] - Within 1 Week (NHL with severe pancytopenia and bone marrow infiltration.) Disposition Disposition (needs filled in before D/C Order can be placed): Home, Self Care
[2023-09-21 13:03] LABS: Pathologist Review Reviewed
[2023-09-21 13:03] LABS: Pathologist Review Reviewed
[2023-09-21 14:26] VITALS: BP 132/81; PULSE 73; RESP 17; TEMP 36.6; O2SAT 93
--- NOTE | 2023-09-21 15:16 | PCM.DC.SUM ---
Providers Date of Admission: 09/14/23 Date of Discharge: 09/21/23 Primary Care Physician: Dr. Jaquelin Dexter MD Consultations 09/17/23 09:19 Consult: Infectious Disease Routine Consulting Provider: Brice Montesinos Reason for Consult: e coli bacteremia EMERGENT Consult: No Notified: Yes Date Notified: 09/17/23 Time Notified: 09:19 Method of Notification: Verbal 09/18/23 11:45 Consult: Oncology/Hematology Routine Consulting Provider: ENEDELIA Hem/Onc Chata Reason for Consult: febrile neutropenia EMERGENT Consult: No Notified: Yes Date Notified: 09/18/23 Time Notified: 11:45 Method of Notification: Verbal Reason For Visit: NEUTROPENIC FEVER Diagnosis Discharge Diagnosis (1) Neutropenic fever: Status: Acute Code(s): D70.9 - Neutropenia, unspecified; R50.81 - Fever presenting with conditions classified elsewhere Plan 58-year-old gentleman admitted with generalized weakness and shortness of breath for 3 to 4 days. 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 His hemoglobin has been low at requiring multiple transfusion, 8 so far. His platelet counts are also very low, severe thrombocytopenia #Neutropenic fever in the setting of metastatic NHL Blood cultures positive for E. coli. on IV Zosyn. will complete a 7 day course ID on board, CT of the abdomen and pelvis done due to E. coli bacteremia. CT abdomen and pelvis showed hepatosplenomegaly with multiple layering gallstones and fatty infiltration of the liver as well as sigmoid diverticulosis and small bilateral pleural effusions with bibasilar atelectasis. Remains on IV Zosyn. Repeat blood cultures negative. Complete a 7-day course of antibiotics. 09/21/2023: Patient afebrile since 09/15/2023. Discussed with the ID. He can go home. Antibiotic as per ID recommendation. #Pancytopenia WBC slightly up to 2.9 today. However absolute neutrophil count remains 0.1. Hemoglobin is down 6.3 and platelets are down to 21. Patient remains on Granix for 80 mg daily. Hematology oncology on board. 09/21/2023: Discussed with oncologist Dr. Curt Mitchell and he will make appointment probably tomorrow. Patient required constant PRBC transfusion 8 units so far. Platelet count is also 20,000. It is most likely due to malignant NHL infiltration to bone marrow and also chemo/immunotherapy. #New onset A-fib with RVR Patient developed new onset A-fib with RVR. Has no history of A-fib. Heart rate remains in the 120s and 130s. Started on metoprolol. Did receive Cardizem bolus and digoxin overnight. CTA of the chest did not show evidence of infiltrate but emphysematous changes. 2D echo ordered. Will commence on Cardizem drip if heart rate remains elevated. Unable to anticoagulate due to patient's anemia and thrombocytopenia. Patient counseled that he is at a high risk of stroke in light of the new diagnosis of A-fib. 09/21/2023: Patient not candidate for anticoagulation due to severe anemia and thrombocytopenia. Patient also high risk for stroke in light of new diagnosis of atrial fibrillation. Heart rate is controlled on metoprolol and diltiazem CD. Prescription given for metoprolol succinate 100 mg daily and diltiazem CD2 140 mg daily. Follow-up in cardiology clinic Dr. Dlaton Gannon within the month. 2D echo is ordered, completed but not reported. Patient is not interested in any cardiac disease in the past #Chronic left leg pain: Duplex of the left lower extremity was negative for any evidence of DVT. Repeat duplex of the left lower extremity showed no DVT and CT of the left lower extremity without contrast showed only edema. Leg wrapped in Gopi wrap. #History of metastatic non-Hodgkin's lymphoma: Patient was evaluated by oncologist Dr. Woodruff. None follicular type NHL. Patient had first dose of obinutuzumab and bendamustine more than 2 weeks from day of admission. Currently on chemotherapy. Per hematology, lymphoma as likely significantly infiltrated his bone marrow leading to the protracted pancytopenia. Follow-up with oncology tomorrow on 09/22/2023 Elevated creatinine: resolved. DVT prophylaxis: SCDs Discharge medication reconciliation done. Discharge follow-up instructions completed. Discharge process discussed with the patient and all questions were answered to patient's satisfaction. Follow with PCP in 1 to 2 weeks Total time spent, exact 35 minutes on discharge meds reconciliation, examination, coordination of care with nurses and ancillary staff, review of imaging and blood test and discussion with the patient on follow-up instructions. Medications at Discharge Home Medications acyclovir 400 mg tablet 400 mg PO Q12H cold sore 09/14/23 diltiazem HCl 240 mg capsule,extended release 24 hr 240 mg PO DINNER 30 days #30 caps 09/21/23 metoprolol succinate 100 mg tablet,extended release 24 hr 100 mg PO DAILY 1 month #30 tabs 09/21/23 Physical Exam Narrative Seen and examined Patient is weak and fatigued. Wants to go home. Afebrile. Physical exam General: Alert, Oriented x3, Cooperative, BMI 30 kg/m?, fatigue HEENT: Atraumatic, PERRLA, EOMI, Normocephalic Oral: No Gingival or Mucosal Lesions/ Ulcerations Neck: Supple, No JVD, Negative Carotid Bruits Chest wall/Lungs: Air entry diminished in bilateral lung bases. No crepitation/rhonchi. Cardiovascular: Regular rate, Regular Rhythm, Normal S1, Normal S2, No M/G/R Abdomen: Bowel Sounds Present, Soft, Non Tender, Non-Distended : No dysuria. No renal angle tenderness. No suprapubic tenderness. Extremities: Mild edema, Capillary Refill Less than 3 Seconds Skin: No rashes, No breakdown Musculoskeletal: Left lower extremity more edematous/swollen than right lower extremity. No Tenderness to Palpation of Joints or Extremities Neurological: Cranial nerves II-XII grossly intact, DTR 2+/4. No acute focal neurological deficit. Psych/Mental Status: Normal Affect, Appropriate. Weight / BMI Weight Weight: 221 lb 1.978 oz Body Mass Index (BMI) 29.9 ABG / Lab / Microbiology Data 09/21/23 06:33 09/21/23 06:33 Laboratory: Laboratory Results - last 24 hr 09/19/23 12:18: Diff Path Review Reviewed 09/20/23 06:35: Diff Path Review Reviewed 09/21/23 06:33: WBC 3.1 L, RBC 2.35 L, Hgb 7.1 L, Hct 21.9 L, MCV 93.2, MCH 30.2, MCHC 32.4, RDW Std Deviation 57.3 H, RDW Coeff of Екатерина 17.6 H, Plt Count 20 L*, MPV 9.0, Immature Gran % (Auto) 0.300, Neut % (Auto) 3.0 L, Lymph % (Auto) 94.2 H, [place] % (Auto) 1.6, Eos % (Auto) 0.6, Baso % (Auto) 0.3, Absolute Neuts (auto) 0.1 L, Absolute Lymphs (auto) 2.91, Nucleated RBC % 0, Diff Path Review November, Sodium 141, Potassium 3.9, Chloride 110 H, Carbon Dioxide 28.0, Anion Gap 3 L, BUN 19 H, Creatinine 0.70, Estim Creat Clear Calc 137.59, Est GFR (MDRD) Af Amer 149, Est GFR (MDRD) Non-Af 123, BUN/Creatinine Ratio 27.3 H, Glucose 99, Calcium 8.7 Microbiology: Microbiology 09/17/23 10:47 Blood Culture (Wb) - Right Hand Blood Culture - Preliminary No growth in 48 hours. 09/17/23 10:44 Blood Culture (Wb) - Left Forearm Blood Culture - Preliminary No growth in 48 hours. 09/14/23 14:55 Blood Culture (Wb) - Anticubital Right Blood Culture - Final Gram negative lacey 09/14/23 14:25 Blood Culture (Wb) - Anticubital Right Blood Culture - Final Escherichia coli 09/14/23 12:16 Mucosa - Nose SARS-CoV-2, Influenza & RSV (PCR) - Final 09/14/23 12:35 Stool Stool Occult Blood (ATA) - Final Radiography Diagnostic Testing: Radiology Impression Venous Doppler Study 09/18/23 09:32 Interpretation Summary Deep veins of the left lower extremity are patent and compressible segmentally. There is no evidence of left lower extremity deep vein thrombosis. The left great saphenous vein appears patent and compressible segmentally. Ordering Physician: Chiara Burger Referring Physician: Jaquelin Dexter Performed By: Jeanne Jorge RVT D/C Instructions Discharge Diet: No restrictions Weight Bearing Status: Weight bearing as tolerated Call your doctor if you observe: Fever of 101 or Higher, Coldness, Increased Pain, Numbness or Tingling, Change in Color, Inability to urinate, Inability to have a bowel movement, Shortness of breath, Dizziness, Fainting spells, Swelling in the ankles, Chest pain, Prolonged hiccupping, Increased palpitations (irregular heartbeat) and Calf discomfort When: IN 2 WEEKS Meaningful Use Info Meaningful Use Diagnoses (Choose all that apply): None applicable Discharge Plan Admission Admit Date/Time: 09/14/23 14:18 Primary Reason for Your Visit: Neutropenic fever, E. coli bacteremia. Metastatic NHL Attending Provider: Nazario Bañuelos Primary Care Provider: Jaquelin Dexter Consulting Providers: Rico Gonzales; Brice Montesinos; Eric Smart; Dima Josue; Nancy Hatfield; Caleb Leiva; Krissy Medellin; Sin Posey; Curt Mitchell; Chiara Burger Discharge Orders/Prescriptions Prescriptions: New diltiazem HCl 240 mg Capsule,Extended Release 24hr 240 mg PO DINNER 30 Days Qty: 30 3RF metoprolol succinate 100 mg tablet extended release 24 hr 100 mg PO DAILY 30 Days Qty: 30 3RF Continued acyclovir 400 mg tablet 400 mg PO Q12H Patient Comments: TAKE 1 TABLET BY MOUTH TWICE A DAY Referrals / Follow Up: Jaquelin Dexter MD [Primary Care Provider] - 09/25/23 3:15 pm Dalton Gannon MD [Med Staff - Active Staff] - 10/06/23 10:00 am (With George Cardona Nurse Practitioner.) Curt Mitchell DO [Med Staff - Active Staff] - 09/22/23 10:30 am (CBC blood draw, Possible transfusion) Disposition Disposition (needs filled in before D/C Order can be placed): Home, Self Care Charges/Coding Visit Charges Inpatient E&M: 06643 Disch Hosp >30min
--- NOTE | 2023-09-21 16:12 | CASEMGMT ---
Patient has order for discharge. RN CM in to discuss needs at discharge. Patient denies needs or help at discharge. Patient had no further questions or concern.
--- NOTE | 2023-09-21 16:41 | PCM.PN.ID ---
Physical Exam Narrative Feeling better, no fever, no abd pain, no n/v/d. Const alert and no apparent distress General Appearance: cooperative Resp normal air movement and clear to auscultation bilaterally Cardio regular rate and regular rhythm GI soft to palpation, non-tender and non-distended Skin no rashes or lesions noted ID ID: Route of nutrition/ use of supplements: [] Nutritional Intake: [] IV Site: [] Lay Catheter: [] Assessment & Plan Assessment/Plan (1) Neutropenic fever: PLAN: Neutropenic fever after recent chemo with ecoli bacteremia - fever resolved. ANC remains 0.1. Did get neulasta with chemo per patient. No sinus tenderness, no thrush. CT abd/pelvis showed no focal infection. Possible it was due to gut translocation. Cont zosyn while inpatient, day 8 of abx. Ok for d/c home tomorrow off of abx, continue on home prophylaxis, will need to monitor for fever recurrence. Will follow (2) Non-Hodgkin lymphoma: (3) E. coli bacteremia:
[2023-09-23 09:14] LABS: Pathologist Review Reviewed
== END 2023-09-21 16:59 | disposition home or self-care (01) | DRG 809 ==
LOC: ED 13:54 → MS3 09-15 07:08 → PCU 09-21 07:17 → MS3 05-10 10:51
PROVIDERS: Physician Assistant; Student in an Organized Health Care Education/Training Program; Admitting Provider Internal Medicine; Emergency Provider Emergency Medicine; PCP Internal Medicine; Visit Provider Internal Medicine
DX: D70.1 Agranulocytosis secondary to cancer chemotherapy (principal); C78.89 Secondary malignant neoplasm of other digestive organs; C79.51 Secondary malignant neoplasm of bone; C83.88 Other non-follicular lymphoma, lymph nodes of multiple sites; I48.91 Unspecified atrial fibrillation; R78.81 Bacteremia; D61.810 Antineoplastic chemotherapy induced pancytopenia; B96.20 Unspecified Escherichia coli [E. coli] as the cause of diseases classified elsewhere; I12.9 Hypertensive chronic kidney disease with stage 1 through stage 4 chronic kidney disease, or unspecified chronic kidney disease; N18.9 Chronic kidney disease, unspecified; D63.0 Anemia in neoplastic disease; G89.29 Other chronic pain; T45.1X5A Adverse effect of antineoplastic and immunosuppressive drugs, initial encounter; R50.81 Fever presenting with conditions classified elsewhere; R09.02 Hypoxemia; Z87.891 Personal history of nicotine dependence; M79.605 Pain in left leg; Z79.899 Other long term (current) drug therapy; R79.89 Other specified abnormal findings of blood chemistry
CPT/HCPCS: 36415; 36430; 71275; 73700; 74177; 80048; 80053; 81001; 82274; 82728; 83540; 84484; 85014; 85018; 85025; 86644; 86850; 86900; 86901; 86920; 86922; 87040; 87077; 87186; 87631; 93005; 93306; 93971; 94640; 94668; 96361; 96365; 96366; 96367; 96368; 96372; 96375; 96376; 99221; 99285; J2185; J7030; J7040; J7050; P9016; P9040; Q9957; Q9967; A4216; C8929; G0378; J1447; J1940; J2405

== ENCOUNTER 2023-09-28 08:15 | Outpatient (CLI) | payer OTHER, SELFPAY ==
--- OUTSIDE RECORDS SUMMARY | 2023-09-28 08:34 | XMS RPT_ITS | CCD ---
Author Name Unknown Address [address] [place] [address] Organization [facility] Care Team Providers Care Middleware Systems Architect Name Role Phone Jose AMADOR, Adria Romero Primary Care Provider Clarke DUMONT, Vee Unavailable Unavailable Jose AMADOR, Adria Romero Primary Care Provider [phone] Clarke DUMONT, Vee Unavailable Unavailable Natalia AMADOR, Clari Unavailable Adria Garcia MD Primary Care Provider Clari Fisher MD Unavailable Clarke DUMONT, Vee Unavailable Unavailable Clari Fisher MD Unavailable Dima Serna MD Unavailable Debi Kaplan RN Unavailable DIMA SERNA Referring Unavailable NATALIACLARI Referring Unavailable ABRAMOVICH, DIMA Attending Unavailable CLARI FISHER Referring Unavailable ABRAMCAMILLEH, DIMA Referring Unavailable ABRAMOVICH, DIMA Referring Unavailable ABRAMOVICH, DIMA Referring Unavailable ABRAMREX, DIMA Attending Unavailable ABRAMREX, DIMA Referring Unavailable ABRAMOVICH, DIMA Referring Unavailable CLARI FISHER Referring Unavailable NATALIACLARI Referring Unavailable CLARI FISHER Referring Unavailable ABRAMOVICH, DIMA Referring Unavailable ABRAMOVICMichelle, DIMA Referring Unavailable ABRAMREX, DIMA Referring Unavailable KENIA OLSON Attending Unavailable Allergies Allergy Classification Reported Allergen(s) Allergy Type Date of Onset Reaction(s) Facility (20 sources) Prochlorperazine ; Translations: [PROCHLORPERAZIN E EDISYLATE] Drug Allergy 05-31-2018 Other: See [facility] (20 sources) riTUXimab; Translations: [RITUXIMAB] Drug Allergy 08-16-2018 [facility] Medications Current Medications Medication Drug Class(es) Dates Sig (Normalized) Sig (Original) benzonatate 100 mg oral capsule (1 source) Non-narcotic Antitussive Start: 06-14-2022 End: 06-29-2022 take 1 capsule by mouth every eight hours as needed for cough benzonatate (TESSALON PERLE) 100 mg capsule Indications: Acute COVID-19 Take 1 capsule by mouth every 8 hours as needed for cough for up to 15 days. 30 capsule 0 06/14/2022 06/29/2022 Active Completed/Discontinued Medications Medication Drug Class(es) Dates Sig (Normalized) Sig (Original) acetaminophen 500 mg oral tablet (20 sources) take 1 tablet by mouth every six hours as needed acetaminophen (TYLENOL) 500 mg tablet Take 500 mg by mouth every 6 hours as needed. 0 Active Problems Active Problems Problem Classification Problem Date Documented Date Episodic/Chronic Coagulation and hemorrhagic disorders (20 sources) Platelet count below reference range; Translations: [Thrombocytopenia, unspecified] Onset: 04-07-2018 Chronic Diseases of white blood cells (1 source) Lymphocytosis (symptomatic); Translations: [Lymphocytosis] Onset: 07-30-2023 Chronic Genitourinary symptoms and ill-defined conditions (1 source) Nocturia; Translations: [Nocturia] 09-25-2023 Episodic Leukemias (20 sources) Chronic lymphoid leukemia, disease; Translations: [Chronic lymphocytic leukemia of B-cell type not having achieved remission] Onset: 04-07-2018 04-14-2018 Chronic Non-Hodgkin`s lymphoma (20 sources) Marginal zone lymphoma of spleen; 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, spleen] Onset: 08-16-2020 Chronic Other lower respiratory disease (1 source) Dyspnea; Translations: [Shortness of breath] Episodic Other upper respiratory infections (1 source) Acute sinusitis; Translations: [Acute sinusitis, unspecified] Episodic Unclassified (1 source) Chemotherapy Treatment Onset: 09-01-2023 Viral infection (1 source) COVID-19; Translations: [Other specified viral infection] Episodic Past or Other Problems Problem Classification Problem Date Documented Da te Episodic/Chronic Other gastrointestinal disorders (20 sources) Splenomegaly; Translations: [Splenomegaly, not elsewhere classified] Onset: 04-07-2018 Episodic Results Test Name Value Interpretation Reference Range Facil ity Vital Signs Date Time Vital Sign Value Performing Clinician Alexei colby 09-25-2023 09:53-0500 Body temperature 98.71 [degF] Kenia Olson Work Phone: [facility] 09-25-2023 09:53-0500 Body weight 97.98 kg Kenia Olson Work Phone: [facility] 09-25-2023 09:53-0500 Diastolic blood pressure 66 mm[Hg] Kenia Olson Work Phone: [facility] 09-25-2023 09:53-0500 Heart rate 93 /min Kenia Olson Work Phone: [facility] 09-25-2023 09:53-0500 SaO2% (BldA) [Mass fraction] 95 % Kenia Olson Work Phone: [facility] 09-25-2023 09:53-0500 Systolic blood pressure 118 mm[Hg] Kenia Olson Work Phone: [facility] 09-03-2023 14:38-0500 Body temperature 98.91 [degF] Injection Wstr Work Phone: [facility] 09-03-2023 14:38-0500 Diastolic blood pressure 94 mm[Hg] Injection Wstr Work Phone: [facility] 09-03-2023 14:38-0500 Heart rate 80 /min Injection Wstr Work Phone: [facility] 09-03-2023 14:38-0500 SaO2% (BldA) [Mass fraction] 100 % Injection Wstr Work Phone: [facility] 09-03-2023 14:38-0500 Systolic blood pressure 155 mm[Hg] Injection Wstr Work Phone: [facility] 09-02-2023 07:48-0500 Body temperature 97.5 [degF] Treatment Wstr Work Phone: [facility] 09-02-2023 07:48-0500 Diastolic blood pressure 71 mm[Hg] Treatment Wstr Work Phone: [facility] 09-02-2023 07:48-0500 Heart rate 85 /min Treatment Wstr Work Phone: [facility] 09-02-2023 07:48-0500 SaO2% (BldA) [Mass fraction] 100 % Treatment Wstr Work Phone: [facility] 09-02-2023 07:48-0500 Systolic blood pressure 157 mm[Hg] Treatment Wstr Work Phone: [facility] 09-01-2023 13:15-0500 Diastolic blood pressure 70 mm[Hg] Treatment Wstr Work Phone: [facility] 09-01-2023 13:15-0500 Heart rate 84 /min Treatment Wstr Work Phone: [facility] 09-01-2023 13:15-0500 Respiratory rate 16 /min Treatment Wstr Work Phone: [facility] 09-01-2023 13:15-0500 SaO2% (BldA) [Mass fraction] 100 % Treatment Wstr Work Phone: [facility] 09-01-2023 13:15-0500 Systolic blood pressure 142 mm[Hg] Treatment Wstr Work Phone: [facility] 09-01-2023 08:05-0500 Body temperature 98.1 [degF] Treatment Wstr Work Phone: [facility] 09-01-2023 08:05-0500 Body weight 100.7 kg Treatment Wstr Work Phone: [facility] 02-12-2023 11:21-0400 Body height 182.9 cm Dima Serna MD Work Phone: [facility] 02-12-2023 11:21-0400 Body temperature 98.4 [degF] Dima Serna MD Work Phone: [facility] 02-12-2023 11:21-0400 Body weight 100.47 kg Dima Serna MD Work Phone: [facility] 02-12-2023 11:21-0400 Diastolic blood pressure 73 mm[Hg] Dima Serna MD Work Phone: [facility] 02-12-2023 11:21-0400 Heart rate 73 /min Dima Serna MD Work Phone: [facility] 02-12-2023 11:21-0400 Respiratory rate 14 /min Dima Serna MD Work Phone: [facility] 02-12-2023 11:21-0400 SaO2% (BldA) [Mass fraction] 98 % Dima Serna MD Work Phone: [facility] 02-12-2023 11:21-0400 Systolic blood pressure 115 mm[Hg] Dima Serna MD Work Phone: [facility] 08-04-2022 11:24-0500 Body height 185.4 cm Clari Fisher MD Work Phone: [facility] 08-04-2022 11:24-0500 Body temperature 97.5 [degF] Clari Fisher MD Work Phone: [facility] 08-04-2022 11:24-0500 Body weight 98.88 kg Clari Fisher MD Work Phone: [facility] 08-04-2022 11:24-0500 Diastolic blood pressure 92 mm[Hg] Clari Fisher MD Work Phone: [facility] 08-04-2022 11:24-0500 Heart rate 81 /min Clari Fisher MD Work Phone: [facility] 08-04-2022 11:24-0500 Systolic blood pressure 135 mm[Hg] Clari Fisher MD Work Phone: [facility] 06-14-2022 11:20-0500 Body temperature 98.8 [degF] Benson Zhou MD Work Phone: [facility] 06-14-2022 11:20-0500 Body weight 97.52 kg Benson Zhou MD Work Phone: [facility] 06-14-2022 11:20-0500 Diastolic blood pressure 82 mm[Hg] Benson Zhou MD Work Phone: [facility] 06-14-2022 11:20-0500 Heart rate 81 /min Benson Zhou MD Work Phone: [facility] 06-14-2022 11:20-0500 Respiratory rate 22 /min Benson Zhou MD Work Phone: [facility] 06-14-2022 11:20-0500 SaO2% (BldA) [Mass fraction] 97 % Benson Zhou MD Work Phone: [facility] 06-14-2022 11:20-0500 Systolic blood pressure 120 mm[Hg] Benson Zhou MD Work Phone: [facility] 02-20-2022 15:49-0400 Body temperature 98.6 [degF] Clari Fisher MD Work Phone: [facility] 02-20-2022 15:49-0400 Body weight 101.15 kg Clari Fisher MD Work Phone: [facility] 02-20-2022 15:49-0400 Diastolic blood pressure 82 mm[Hg] Clari Fisher MD Work Phone: [facility] 02-20-2022 15:49-0400 Heart rate 91 /min Clari Fisher MD Work Phone: [facility] 02-20-2022 15:49-0400 SaO2% (BldA) [Mass fraction] 96 % Clari Fisher MD Work Phone: [facility] 02-20-2022 15:49-0400 Systolic blood pressure 132 mm[Hg] Clari Fisher MD Work Phone: [facility] Encounters Encounter Date Encounter Type Care Provider Facility Start: 09-25-2023 Telephone encounter Dima marti MD Work Phone: Hematology/Oncology Procedures Date Procedure Procedure Detail Performing Clinician Start: 02-02-2023 Ct abdomen & pelvis w/contrast material Clari Fisher MD Work Phone: Start: 07-24-2022 Us abdominal real ti me w/image limited Clari Fisher MD Work Phone: Start: 02-13-2022 Us abdominal real ti me w/image limited Clari Fisher MD Work Phone: Start: 09-05-2019 Adult depression screening assessment [facility] Work Phone: Start: 04-06-2018 Lipid 1996 panel - S jane or Plasma Ct (I-Stat) Work Phone: Plan of Treatment Date Care Activity Detail Author Start: 09-24-2026 [facility] Start: 09-01-2026 [facility] Start: 02-02-2026 DIABETES SCREEN DIAB[facility] SCREEN [facility] Start: 02-02-2026 Diabetes Screening [facility] Start: 07-24-2025 DIABETES SCREEN DIABETES SCREEN [facility] Start: 02-13-2025 DIABETES SCREEN DIABETES SCREEN [facility] Start: 09-25-2023 End: 12-25-2023 CBC W Auto Differential panel - Blood CBC + DIFF Lab STAT Marginal zone lymphoma of spleen (HCC) Expected: 09/25/2023, Expires: 12/25/[address] [facility] Work Phone: Immunizations Immunization Date Immunization Notes Care Provider Abraham quinn 05-23-2021 influenza, injectabl e, quadrivalent, preservative free Us 1 Work Phone: [facility] 05-23-2021 influenza virus vacc ine, unspecified formulation Ct (I-Stat) Work Phone: [facility] 04-19-2018 influenza, injectabl e, quadrivalent, preservative free Us 1 Work Phone: [facility] 04-19-2018 pneumococcal polysaccharide vaccine, 23 valent Us 1 Work Phone: [facility] Payers Date Payer Category Payer Private Health Insurance [facility] [employer] CHOICE PLUS [id number] 2022-Present [phone] [address] [address] [place] [address] HMO [id number] 2022 Unknown [id number] 2020 Unknown MMO [employer]MO [employer] [id number] 2020-Present [phone] [address] [place] [address] PPO [id number] 2020 Unknown MMO MMO [employer] [id number] 2020-Present [phone] [address] [place] [address] PPO [id number] Social History Date Type Detail Facility Start: 01-04-2020 End: 06-14-2022 Tobacco smoking status NHIS Never smoked tobacco [facility] Start: 01-04-2020 End: 06-14-2022 Tobacco use and exposure Smokeless tobacco non-user [facility] Start: 05-23-2021 End: 09-25-2023 Alcohol intake Current non-drinker of alcohol (finding) [facility] Start: 1965 Sex Assigned At Not on file [facility] Start: 02-02-2023 End: 02-12-2023 History of Social function [facility] Start: 02-02-2023 End: 02-12-2023 Tobacco use panel [facility] Adult Depression Scr eening Assessment 0 [facility] Clinical Notes 02-13-2022 to 09-25-2023 Telephone Encounter - Mecca Blackburn LPN - 09/25/2023 10:57 AM Kenia Sahu - 09/25/2023 9:30 AM ESTTelephone Encounter - Debi Kaplan RN - 09/18/2023 1:01 PM EST Note Date & Type Note Facility 09-25-2023 Note HNO ID: [id number] Author: KENIA OLSON, ? Service: ? Author Type: Nurse Practitioner Type: Progress Notes Filed: 09/25/2023 16:39 Note Text: Campbell Hastings 1965 09/25/2023 HISTORY OF PRESENT ILLNESS: Campbell Hastings is a 57 year old male presented to Dr. Garcia with a several month history of swelling in the left upper abdomen. although he denies early satiety, abdominal pain, bloating or jaundice. Patient has lost some weight due to exercise and dieting. He has no fever, chills or night sweats. No history of peptic ulcer disease, change of bowel habit, diarrhea or constipation. No history of melena or blood per rectum. His CBC yesterday show an elevated white blood cell count (leukocytosis); he also has a moderate anemia and thrombocytopenia. He has no swollen glands or adenopathy. He has no frequent or recurrent infection. He denied cough shortness of breath. No urinary symptoms. Over the last 3 - 4 years, patient noted that it take him longer to do chores and he did in his fifties. No family history of leukemia lymphoma. Previous treatment: Rituximab/fludarabine/cyclophosp hamide/ Neulasta x 4 Fludarabine/cyclophosphamide x 2; after he had severe infusion reaction to rituximab. Completed November 2018 Interval History Mr. Hastings presents today for follow up prior to OB/lucas scheduled for 09/28. Since last visit he was admitted to [facility] for neutropenic fevers/bacteremia following C1D1. Received 7 day course of IV abx during admission. Left lower extremity swelling, US negative for DVT, CT performed showing edema alone. He notes that swelling has significantly improved. He notes feeling much better since discharge. Denies new issues. No fevers, chills or NS since admission. Denies SOB, CP. No noticeable palpitations. Denies current N/V/C/D. Stools are softer side. Notes Skull pain , started a few weeks ago, prior hosp admission, throbbing - not a headache. No dizziness, lightheadedness. Nocturia getting up every 15 minutes does feel like he is completely emptying. Has been ongoing. No dysuria, hematuria. He denies any new lumps or bumps. No bleeding or bruising. No past medical history on file. PAST SURGICAL HISTORY Procedure Laterality Date TONSILLECTOMY HX FAMILY HISTORY Problem Relation Age of Onset Diabetes Father Hypertension Father Social History Tobacco Use Smoking status: Never Smokeless tobacco: Never Vaping Use Vaping Use: Never used Substance Use Topics Alcohol use: No Drug use: No ALLERGIES: ALLERGIES Allergen Reactions Compazine [Prochlor* Other: See Comments Dizziness Rituxan [Rituximab] Hives CURRENT OUTPATIENT MEDICATIONS: dilTIAZem CD (CARDIZEM CD) 240 mg 24 hr capsule Take 240 mg by mouth once daily. per discharge from [facility] 09/21/23 metoprolol succinate ER (TOPROL XL) 100 mg Take 100 mg by mouth once daily. per [facility] discharge 09/21/23 acyclovir (ZOVIRAX) 400 mg tablet Take 1 tablet by mouth two times a day. ondansetron (ZOFRAN) 8 mg tablet Take 1 tablet by mouth every 8 hours as needed. acetaminophen (TYLENOL) 500 mg tablet Take 500 mg by mouth every 6 hours as needed. ibuprofen (MOTRIN) 200 mg tablet Take 400 mg by mouth every 6 hours as needed. allopurinol (ZYLOPRIM) 100 mg tablet Take 1 tablet by mouth once daily. [DISCONTINUED] ibrutinib (IMBRUVICA) 280 mg tablet Take 1 tablet (280 mg) by mouth once daily. REVIEW OF SYSTEMS: GENERAL: No fever, night sweats, weight loss or malaise. All other reviewed and negative other than HPI. All systems reviewed on 09/25/2023 with pertinent positives and negatives as outlined in the interval history. PHYSICAL EXAMINATION: VITAL SIGNS: BP 118/66 Pulse 93 Temp (Src) 98.7 (Temporal) Wt 216 lb (98.0kg) SpO2 95% GENERAL APPEARANCE: Well appearing, in no acute distress, alert and oriented x3, well-hydrated, well nourished. No adenopathy or palpable splenomegaly HEENT: Normocephalic, no sclera icterus, external ears normal Neck: Supple, no JVD. Chest: Clear bilaterally, no wheezes, not labored. Heart: Normal S1 and S2, no abnormal sounds Abdomen: Soft, nontender, nondistended Extremities: L LE edema improved, neg for DVT Neurological: Grossly intact Skin: Warm and dry with no rashes or ulcerations. Hematologic: no bruising or petechiae. Psychiatric: Alert and oriented x3. Emotional well-being assessment was performed. Pt denies depression, distress, and or problems with coping or adjustment. I have performed the physical exam today (09/25/2023) and have edited the note to correlate with current findings. Impression/Plan: Splenic marginal zone lymphoma, showing relapse - Could not tolerate rituxan previously. Poorly tolerant of ibrutinib also. Patient very concerned about toxicity and quality of life. I reassured than typically bendamustine is well tolerated, but his experience with treatment is not good. - Started bendamustine obinotuzumab + n (more content not included)... [facility] 09-25-2023 Miscellaneous Notes Pt scheduled for one unit of PRBC at [facility] 09/28/23 at 0830. Pt notified and order faxed with face sheet and insurance cards. Mecca Blackburn LPN documented in this encounter [facility] 09-25-2023 History of Presen t illness Narrative Campbell Hastings 1965 09/25/2023 HISTORY OF PRESENT ILLNESS: Campbell Hastings is a 57 year old male presented to Dr. Garcia with a several month history of swelling in the left upper abdomen. although he denies early satiety, abdominal pain, bloating or jaundice. Patient has lost some weight due to exercise and dieting. He has no fever, chills or night sweats. No history of peptic ulcer disease, change of bowel habit, diarrhea or constipation. No history of melena or blood per rectum. His CBC yesterday show an elevated white blood cell count (leukocytosis); he also has a moderate anemia and thrombocytopenia. He has no swollen glands or adenopathy. He has no frequent or recurrent infection. He denied cough shortness of breath. No urinary symptoms. Over the last 3 - 4 years, patient noted that it take him longer to do chores and he did in his fifties. No family history of leukemia lymphoma. Previous treatment: Rituximab/fludarabine/cyclophosp hamide/ Neulasta x 4 Fludarabine/cyclophosphamide x 2; after he had severe infusion reaction to rituximab. Completed November 2018 Interval History Mr. Hastings presents today for follow up prior to OB/lucas scheduled for 09/28. Since last visit he was admitted to [facility] for neutropenic fevers/bacteremia following C1D1. Received 7 day course of IV abx during admission. Left lower extremity swelling, US negative for DVT, CT performed showing edema alone. He notes that swelling has significantly improved. He notes feeling much better since discharge. Denies new issues. No fevers, chills or NS since admission. Denies SOB, CP. No noticeable palpitations. Denies current N/V/C/D. Stools are softer side. Notes Skull pain , started a few weeks ago, prior hosp admission, throbbing - not a headache. No dizziness, lightheadedness. Nocturia getting up every 15 minutes does feel like he is completely emptying. Has been ongoing. No dysuria, hematuria. He denies any new lumps or bumps. No bleeding or bruising. No past medical history on file. PAST SURGICAL HISTORY Procedure Laterality Date TONSILLECTOMY HX FAMILY HISTORY Problem Relation Age of Onset Diabetes Father Hypertension Father Social History Tobacco Use Smoking status: Never Smokeless tobacco: Never Vaping Use Vaping Use: Never used Substance Use Topics Alcohol use: No Drug use: No ALLERGIES: ALLERGIES Allergen Reactions Compazine [Prochlor* Other: See Comments Dizziness Rituxan [Rituximab] Hives CURRENT OUTPATIENT MEDICATIONS: dilTIAZem CD (CARDIZEM CD) 240 mg 24 hr capsule Take 240 mg by mouth once daily. per discharge from [facility] 09/21/23 metoprolol succinate ER (TOPROL XL) 100 mg Take 100 mg by mouth once daily. per [facility] discharge 09/21/23 acyclovir (ZOVIRAX) 400 mg tablet Take 1 tablet by mouth two times a day. ondansetron (ZOFRAN) 8 mg tablet Take 1 tablet by mouth every 8 hours as needed. acetaminophen (TYLENOL) 500 mg tablet Take 500 mg by mouth every 6 hours as needed. ibuprofen (MOTRIN) 200 mg tablet Take 400 mg by mouth every 6 hours as needed. allopurinol (ZYLOPRIM) 100 mg tablet Take 1 tablet by mouth once daily. [DISCONTINUED] ibrutinib (IMBRUVICA) 280 mg tablet Take 1 tablet (280 mg) by mouth once daily. REVIEW OF SYSTEMS: GENERAL: No fever, night sweats, weight loss or malaise. All other reviewed and negative other than HPI. All systems reviewed on 09/25/2023 with pertinent positives and negatives as outlined in the interval history. PHYSICAL EXAMINATION: VITAL SIGNS: BP 118/66 Pulse 93 Temp (Src) 98.7 (Temporal) Wt 216 lb (98.0kg) SpO2 95% GENERAL APPEARANCE: Well appearing, in no acute distress, alert and oriented x3, well-hydrated, well nourished. No adenopathy or palpable splenomegaly HEENT: Normocephalic, no sclera icterus, external ears normal Neck: Supple, no JVD. Chest: Clear bilaterally, no wheezes, not labored. Heart: Normal S1 and S2, no abnormal sounds Abdomen: Soft, nontender, nondistended Extremities: L LE edema improved, neg for DVT Neurological: Grossly intact Skin: Warm and dry with no rashes or ulcerations. Hematologic: no bruising or petechiae. Psychiatric: Alert and oriented x3. Emotional well-being assessment was performed. Pt denies depression, distress, and or problems with coping or adjustment. I have performed the physical exam today (09/25/2023) and have edited the note to correlate with current findings. Impression/Plan: Splenic marginal zone lymphoma, showing relapse - Could not tolerate rituxan previously. Poorly tolerant of ibrutinib also. Patient very concerned about toxicity and quality of life. I reassured than typically bendamustine is well tolerated, but his experience with treatment is not good. - Started bendamustine obinotuzumab + neulasta - C1D1 on 09/01/23 with premedications due to hx of reaction/sensitivity to treatment/ burden of dz. - goal hgb >7.5, plan for 1 u blood transfusion on Thursday at [facility]. Reviewed s/s of decreased hgb. Advised to present to ED with any new or worsening SOB, CP, dizziness, lightheadedness. - CBC prelim results. - dicussed with Dr. Serna, plan to recheck counts on Thursday. - low threshold to hold tx Nocturia: - Ongoing for several weeks. UA/culture at [facility] negative. - getting up every 15 minutes during the night, dose not feel that he is completely emptying, impacting sleep - ref to urology Advised to call with any questions or concerns in the meantime. Kenia Olson APRN.GARDEN CONSULTANT I spent a total of 60 minutes on the date of the service which included preparing to see the patient, [id number] patient care, completing clinical documentation, obtaining and/or reviewing separately obtained history, counseling and educating the patient/family/caregiver, ordering medications, tests, or procedures, and care coordination (not separately reported). Portions of this note including HPI, ROS, impression/plan may have been copied forward as to provide important historical information essential in contributing to medical decision making. Documentation has been reviewed and edited as necessary to support clinical decision making for today's visit and to reflect my own independent evaluation of this patient. documented in this encounter [facility] 09-18-[address] Mitchell is planning to see patient in the hospital today. Blanca Kaplan RN documented in this encounter [facility] 09-15-[address] Serna aware. Will follow for discharge and follow up needs. Blanca Kaplan RN Care Coordination Triage Note [facility] Situation: Patient reports Edema, Fever, and Pain/Back or Spine Pain/Headache Background: Disease, current pertinent medications/treatments Bendamustine/Gazyva Assessment: When did you first notice the edema or swelling? 09/11/23 Where is the swelling located? left leg, knee to toes Do you have any pain, tenderness, fever, redness, warmth associated with the swelling? yes, warm to touch compared to right leg. pain 10/10, Any shortness of breath? yes, with exertion. Have you had any recent injury or trauma to the affected area? no Any recent surgery or travel? no States he has been elevating it and maybe a little better today. HEADACHE PAIN When did you first notice the headache? 09/11/23 states base of neck up left side of skull How intense is the pain (scale of 1-10)? 10 How would you describe the headache (sharp, dull, pulsating, migraine-like )? like I have been hit in the head with a baseball bat Is the headache constant or intermittent? constant If intermittent, how often is it present? (if not sure how to answer, ask what % of time their headache is present during the day) na Have you had any recent falls or trauma where you may have hit your head? no If yes, please provide details na Are you taking any medications for headaches including OTC or supplements? yes If yes, what? Tylenol alternating with Advil, helping some Are you doing anything else besides medications to help alleviate headaches such as heat, cold, etc? no Also states feeling lightheaded/dizziness when ambulating. Increase shortness of breath with exertion, states he recovers quickly. This all started on 09/12/23 also. Denies N/V, diarrhea, bowel irregular but getting better, denies other pain anywhere else, drinking 60-70oz water daily. States chills off and on. Temp 101.6F once on Thursday, otherwise has been running around 98-99F since. Recommendations: Per RNCC, patient directed to: Emergency Room due to the issue being urgent. Patient going to [facility] ED at this time. is taking him. Debi Kaplan RN September 14, 2023 9:29 AM documented in this encounter [facility] 09-03-2023 Nurse Note Patient presents with: Imm/Inj Pt is identified by name and birthdate: Yes. Allergies and medications reviewed. Latex allergy? No. Does this patient have: Unplanned weight loss or gain of greater than 10 pounds, or a change of appetite over the last year? No Does the patient have any concerns about safety in the home/falls? Not at risk for falls Has the patient fallen in the past year? No Does the patient have difficulty performing or completing routine daily living activities? No Does this patient have concerns about personal safety? No Is patient having pain? Pain: No=0 (pain 0 on a scale of 0-10). Health Maintenance: Reviewed and updated. Does patient have MyChart access or Caregiver proxy: yes Pt/Caregiver willingness and readiness to learn assessed: Yes. Barriers: none Neulasta injection administered, right arm, tolerated well, no immediate adverse reactions noted. Katelynn Luis LPN documented in this encounter [facility] 09-03-2023 Miscellaneous Notes CYCLE 1/DAY 1 POST TREATMENT CALL Today's date: September 03, 2023 Treatment Regimen: Bendamustine D1/Gazyva D1/D2 C1D1 Date: 09/01/23 Called patient to follow-up on symptom management. Spoke with spouse, he is a little slower today but it's a good day She denies needs/concerns. Questions answered about upcoming visits. SYMPTOM ASSESSMENT Neuro: None CV/Resp: None GI/: None Integument: None Activity: Activity Level (0-100%): decreased Pain: No=0 (pain 0 on a scale of 0-10). Fever: No Chills: No Any new referrals needed? No Reinforced CURRENT treatment education based on current and anticipated symptoms. Discussed port/line care and patient verbalizes understanding: Not Applicable Patient instructed to contact office or after hours Hematology/Oncology fellow for: temperature ? 100.4; questions or concerns. Patient verbalized understanding of when to seek medical attention and after hours number protocol. Debi Kaplan RN documented in this encounter [facility] 09-02-2023 Miscellaneous Notes FYI, information regarding scheduling Gazyva was per Winter Gordon RN. Pt to hold introductory dose and start again next month due to reaction. Spouse informed. Per [employer], patient needs Neulasta on 09/03. Left message for patient to return call. When he calls, please advise of his injection appointment tomorrow at 2:00 and that he does not have treatment on 09/08 or 09/15. Cristina Hickman Per nurse, patient is not getting Gazyva this cycle and the next 2 treatments need cancelled (09/08 & 09/15). Left message for patient to return call. When patient calls, please advise the above message. Cristina Hickman documented in this encounter [facility] 09-01-2023 Note HNO ID: [id number] Author: WINTER GORDON RN Service: ? Author Type: Registered Nurse Type: Progress Notes Filed: 09/01/2023 14:40 Note Text: 10:45 pt is flushed and feels very warm. Infusion stopped and Dr Serna called to bedside. Orders for solu cortif 100mg 10:47 given solu corif 100mg IV and NS added free flowing. O2 to 85% Oxygen 4L per NC started to get sat at 91% Pt feels a little SOB 11:05 continued Oxygen at 4Liters per NC Sat up to 94% and pt feels less SOB. Flushing 80% gone. Pt states does not feel nearly as hot as he did 1150 Pt with NS continues to flow free flow. Pt c/o feeling chilled. Noted Rigors to follow. Dr Serna notified and orders received to give Demerol 25mg IV now 1152 Demerol given. 1202 Rigors subsided. Oxygen decreased to 3L due to sat at 100% 1208 Oxygen decreased to 2L due to sat at 100% 1220 Sat 100% Ox taken off; pt denies SOB. 12:35 137/74 84 16 100% on Room Air 12:50 Dr Serna at chairside and orders received that pt can go after 500ml complete. Pt to return tomorrow for day 2 on Bendamustine. No re-challenge of obinutuzumab. This RN told pt to relax this evening and not to drive due to demerol given. Encouraged to drink 60-64 oz of water everyday. Winter Gordon RN [facility] 09-01-2023 History of Presen t illness Narrative 10:45 pt is flushed and feels very warm. Infusion stopped and Dr Serna called to bedside. Orders for solu cortif 100mg 10:47 given solu corif 100mg IV and NS added free flowing. O2 to 85% Oxygen 4L per NC started to get sat at 91% Pt feels a little SOB 11:05 continued Oxygen at 4Liters per NC Sat up to 94% and pt feels less SOB. Flushing 80% gone. Pt states does not feel nearly as hot as he did 1150 Pt with NS continues to flow free flow. Pt c/o feeling chilled. Noted Rigors to follow. Dr Serna notified and orders received to give Demerol 25mg IV now 1152 Demerol given. 1202 Rigors subsided. Oxygen decreased to 3L due to sat at 100% 1208 Oxygen decreased to 2L due to sat at 100% 1220 Sat 100% Ox taken off; pt denies SOB. 12:35 137/74 84 16 100% on Room Air 12:50 Dr Serna at chairside and orders received that pt can go after 500ml complete. Pt to return tomorrow for day 2 on Bendamustine. No re-challenge of obinutuzumab. This RN told pt to relax this evening and not to drive due to demerol given. Encouraged to drink 60-64 oz of water everyday. Winter Gordon RN documented in this encounter [facility] 08-21-2023 Miscellaneous Notes Spouse confirmed appts Left message for patient's spouse to return call. When she calls, please confirm dates/times for first cycle of treatment. Cristina Hickman called asking for an update on start date for chemotherapy. She is aware that I will check with schedulers and assured her that they are working on it and will call her as soon as they have him scheduled. She also refused needing chemo education. They received information on the drugs at office visit and they have no questions. Blanca Kaplan RN PSS: Patient to start chemotherapy, [place] orders in. Needs consent. Patient to begin Q28 day Bendamustine and Gazyva Needs chemo education, chairside will be ok. Hep B/CBC/CMP Straight back for Cycle 1 CBC/CMP weekly (C1D8 and C1D15), then monthly with OV's CBC/CMP/OV with each cycle and can alternate b/w Dr. Serna and [place] as able Blanca Kaplan RN Call to spouse, no answer, left message that we received her message that patient would like to start chemotherapy. Also, that we will be scheduling a chemo education visit and getting appointment set up. She can expect another phone call with those dates/times either today or tomorrow. Blanca Kaplan RN Spouse is returning call for the patient and wants to start bendamustine obinotuzumab, Please return call to spouse to arrange appointments. documented in this encounter [facility] 08-18-2023 Note HNO ID: [id number] Author: DIMA SERNA MD Service: ? Author Type: Physician Type: Progress Notes Filed: 08/18/2023 14:40 Note Text: (Elements copied from my note dated February 12, 2023, have been reviewed and updated where appropriate, and all reflect current assessment and medical decision making from today's encounter, August 18, 2023) HISTORY OF PRESENT ILLNESS: Campbell Hastings is a 57 year old male presented to Dr. Garcia with a several month history of swelling in the left upper abdomen. although he denies early satiety, abdominal pain, bloating or jaundice. Patient has lost some weight due to exercise and dieting. He has no fever, chills or night sweats. No history of peptic ulcer disease, change of bowel habit, diarrhea or constipation. No history of melena or blood per rectum. His CBC yesterday show an elevated white blood cell count (leukocytosis); he also has a moderate anemia and thrombocytopenia. He has no swollen glands or adenopathy. He has no frequent or recurrent infection. He denied cough shortness of breath. No urinary symptoms. Over the last 3 - 4 years, patient noted that it take him longer to do chores and he did in his fifties. No family history of leukemia lymphoma. Previous treatment: Rituximab/fludarabine/cyclophosp hamide/ Neulasta x 4 Fludarabine/cyclophosphamide x 2; after he had severe infusion reaction to rituximab. Completed November 2018 CLINICAL IMPRESSION: Splenic marginal zone lymphoma, showing relapse Could not tolerate rituxan previously. Poorly tolerant of ibrutinib also. Patient very concerned about toxicity and quality of life. I reassured than typically bendamustine is well tolerated, but his experience with treatment is not good. RECOMMENDATION/PLAN: 1. Consider bendamustine obinotuzumab, info given. He will consider and let me know his thoughts later this week. Written and verbal health teaching given to patient, patient verbalizes understanding and agrees with treatment plan. No past medical history on file. PAST SURGICAL HISTORY Procedure Laterality Date TONSILLECTOMY HX FAMILY HISTORY Problem Relation Age of Onset Diabetes Father Hypertension Father Social History Tobacco Use Smoking status: Never Smokeless tobacco: Never Vaping Use Vaping Use: Never used Substance Use Topics Alcohol use: No Drug use: No ALLERGIES: ALLERGIES Allergen Reactions Compazine [Prochlor* Other: See Comments Dizziness Rituxan [Rituximab] Hives CURRENT OUTPATIENT MEDICATIONS: acetaminophen (TYLENOL) 500 mg tablet Take 500 mg by mouth every 6 hours as needed. ibuprofen (MOTRIN) 200 mg tablet Take 400 mg by mouth every 6 hours as needed. [DISCONTINUED] ibrutinib (IMBRUVICA) 280 mg tablet Take 1 tablet (280 mg) by mouth once daily. REVIEW OF SYSTEMS: GENERAL: No fever, night sweats, weight loss or malaise. All other reviewed and negative other than HPI. PHYSICAL EXAMINATION: VITAL SIGNS: BP 126/85 Pulse 75 Temp 97.8 Ht 6' .736 (1.85m) Wt 228 lb (103.4kg) SpO2 96% BMI 30.32 kg/(m2). GENERAL APPEARANCE: Well appearing, in no acute distress, alert and oriented x3, well-hydrated, well nourished. No adenopathy or palpable splenomegaly I spent a total of 45 minutes on the date of the service which included preparing to see the patient, [id number] patient care, completing clinical documentation, obtaining and/or reviewing separately obtained history, performing a medically appropriate examination, counseling and educating the patient/family/caregiver, ordering medications, tests, or procedures, independently interpreting results (not separately reported), and communicating results to the patient/family/caregiver. Also in review of NCCN guidelines, discussion with resident care director Electronically Signed: Dima Serna MD August 18, 2023 [facility] 07-29-2023 Note HNO ID: [id number] Author: DAPHNIE HOFFMANN RDMS Service: ? Author Type: Tool And Fixture Repairer Type: Progress Notes Filed: 07/30/2023 10:23 Note Text: Radiology Service Progress Note PATIENT NAME: Campbell Hastings DATE OF SERVICE: July 30, 2023 TIME: 10:22 AM PATIENT IDENTITY VERIFICATION COMPLETED USING TWO (2) IDENTIFIERS: Name and Date of confirmed by patient verbally. FALL SCREENING: Has the patient had 2 falls in the last year or 1 fall with injury or currently using an Ambulatory Assistive Device (Walker, Cane, Wheelchair, Crutches, etc.)? No PATIENT GENDER DATA: Male PATIENT RELEVANT IMPLANT DATA REVIEWED: Not Applicable RADIOLOGY DEPARTMENT: Ultrasound PERIPHERAL IV DATA: Not applicable SIGNED BY: Daphnie Hoffmnan RDMS RVT July 30, 2023 10:22 AM [facility] 02-12-2023 Note HNO ID: [id number] Author: Dima Serna MD Service: ? Author Type: Physician Type: Progress Notes Filed: 02/12/2023 4:03 PM Note Text: HISTORY OF PRESENT ILLNESS: Campbell Hastings is a 57 year old male presented to Dr. Garcia with a several month history of swelling in the left upper abdomen. although he denies early satiety, abdominal pain, bloating or jaundice. Patient has lost some weight due to exercise and dieting. He has no fever, chills or night sweats. No history of peptic ulcer disease, change of bowel habit, diarrhea or constipation. No history of melena or blood per rectum. His CBC yesterday show an elevated white blood cell count (leukocytosis); he also has a moderate anemia and thrombocytopenia. He has no swollen glands or adenopathy. He has no frequent or recurrent infection. He denied cough shortness of breath. No urinary symptoms. Over the last 3 - 4 years, patient noted that it take him longer to do chores and he did in his fifties. No family history of leukemia lymphoma. Previous treatment: Rituximab/fludarabine/cyclophosp hamide/ Neulasta x 4 Current treatment: Fludarabine/cyclophosphamide x 2; after he had severe infusion reaction to rituximab. CLINICAL IMPRESSION: Splenic marginal zone lymphoma, showing slow if any progression RECOMMENDATION/PLAN: 1. Recheck 6 months with US Written and verbal health teaching given to patient, patient verbalizes understanding and agrees with treatment plan. History reviewed. No pertinent past medical history. PAST SURGICAL HISTORY Procedure Laterality Date TONSILLECTOMY HX FAMILY HISTORY Problem Relation Age of Onset Diabetes Father Hypertension Father Social History Tobacco Use Smoking status: Never Smokeless tobacco: Never Vaping Use Vaping Use: Never used Substance Use Topics Alcohol use: No Drug use: No ALLERGIES: ALLERGIES Allergen Reactions Compazine [Prochlor* Other: See Comments Dizziness Rituxan [Rituximab] Hives CURRENT OUTPATIENT MEDICATIONS: acetaminophen (TYLENOL) 500 mg tablet Take 500 mg by mouth every 6 hours as needed. ibuprofen (MOTRIN) 200 mg tablet Take 400 mg by mouth every 6 hours as needed. [DISCONTINUED] ibrutinib (IMBRUVICA) 280 mg tablet Take 1 tablet (280 mg) by mouth once daily. REVIEW OF SYSTEMS: GENERAL: No fever, night sweats, weight loss or malaise. All other reviewed and negative other than HPI. PHYSICAL EXAMINATION: VITAL SIGNS: BP 115/73 Pulse 73 Temp (Src) 98.4 (Temporal) Resp 14 Ht 6' 0 (1.83m) Wt 221 lb 8 oz (100.5kg) SpO2 98% BMI 30.03 kg/(m2). GENERAL APPEARANCE: Well appearing, in no acute distress, alert and oriented x3, well-hydrated, well nourished. No adenopathy I spent a total of 30 minutes on the date of the service which included preparing to see the patient, [id number] patient care, completing clinical documentation, obtaining and/or reviewing separately obtained history, performing a medically appropriate examination, counseling and educating the patient/family/caregiver, ordering medications, tests, or procedures, independently interpreting results (not separately reported), and communicating results to the patient/family/caregiver. Electronically Signed: Dima Serna MD February 12, 2023 11:43 AM [facility] 02-12-2023 History of Presen t illness Narrative HISTORY OF PRESENT ILLNESS: Campbell Hastings is a 57 year old male presented to Dr. Garcia with a several month history of swelling in the left upper abdomen. although he denies early satiety, abdominal pain, bloating or jaundice. Patient has lost some weight due to exercise and dieting. He has no fever, chills or night sweats. No history of peptic ulcer disease, change of bowel habit, diarrhea or constipation. No history of melena or blood per rectum. His CBC yesterday show an elevated white blood cell count (leukocytosis); he also has a moderate anemia and thrombocytopenia. He has no swollen glands or adenopathy. He has no frequent or recurrent infection. He denied cough shortness of breath. No urinary symptoms. Over the last 3 - 4 years, patient noted that it take him longer to do chores and he did in his fifties. No family history of leukemia lymphoma. Previous treatment: Rituximab/fludarabine/cyclophosp hamide/ Neulasta x 4 Current treatment: Fludarabine/cyclophosphamide x 2; after he had severe infusion reaction to rituximab. CLINICAL IMPRESSION: Splenic marginal zone lymphoma, showing slow if any progression RECOMMENDATION/PLAN: 1. Recheck 6 months with US Written and verbal health teaching given to patient, patient verbalizes understanding and agrees with treatment plan. History reviewed. No pertinent past medical history. PAST SURGICAL HISTORY Procedure Laterality Date TONSILLECTOMY HX FAMILY HISTORY Problem Relation Age of Onset Diabetes Father Hypertension Father Social History Tobacco Use Smoking status: Never Smokeless tobacco: Never Vaping Use Vaping Use: Never used Substance Use Topics Alcohol use: No Drug use: No ALLERGIES: ALLERGIES Allergen Reactions Compazine [Prochlor* Other: See Comments Dizziness Rituxan [Rituximab] Hives CURRENT OUTPATIENT MEDICATIONS: acetaminophen (TYLENOL) 500 mg tablet Take 500 mg by mouth every 6 hours as needed. ibuprofen (MOTRIN) 200 mg tablet Take 400 mg by mouth every 6 hours as needed. [DISCONTINUED] ibrutinib (IMBRUVICA) 280 mg tablet Take 1 tablet (280 mg) by mouth once daily. REVIEW OF SYSTEMS: GENERAL: No fever, night sweats, weight loss or malaise. All other reviewed and negative other than HPI. PHYSICAL EXAMINATION: VITAL SIGNS: BP 115/73 Pulse 73 Temp (Src) 98.4 (Temporal) Resp 14 Ht 6' 0 (1.83m) Wt 221 lb 8 oz (100.5kg) SpO2 98% BMI 30.03 kg/(m^2). GENERAL APPEARANCE: Well appearing, in no acute distress, alert and oriented x3, well-hydrated, well nourished. No adenopathy I spent a total of 30 minutes on the date of the service which included preparing to see the patient, [id number] patient care, completing clinical documentation, obtaining and/or reviewing separately obtained history, performing a medically appropriate examination, counseling and educating the patient/family/caregiver, ordering medications, tests, or procedures, independently interpreting results (not separately reported), and communicating results to the patient/family/caregiver. Electronically Signed: Dima Serna MD February 12, 2023 11:43 AM documented in this encounter [facility] 02-02-2023 Note HNO ID: [id number] Author: RT Rocio(R) Service: ? Author Type: Facing End Trimmer Type: Progress Notes Filed: 02/02/2023 1:55 PM Note Text: Radiology Service Progress Note DATE OF SERVICE: February 02, 2023 TIME: 1:55 PM PATIENT IDENTITY VERIFICATION COMPLETED USING TWO (2) STANDARD IDENTIFIERS: Name and Date of confirmed by patient verbally. FALL SCREENING: Has the patient had 2 falls in the last year or 1 fall with injury or currently using an Ambulatory Assistive Device (Walker, Cane, Wheelchair, Crutches, etc.)? No PATIENT GENDER DATA: Male PATIENT RELEVANT IMPLANT DATA REVIEWED: Yes ALLERGIES: Reviewed and unchanged CONTRAST ALLERGY: NO. EXAM: CT -CONTRAST INDUCED NEPHROPATHY RISK FACTORS: Not applicable CREATININE: Creatinine Date Value Ref Range Status 02/02/2023 0.81 0.73 - 1.22 mg/dL Final 07/24/2022 0.71 (L) 0.73 - 1.22 mg/dL Final 02/13/2022 0.96 0.73 - 1.22 mg/dL Final Estimated Glomerular Filtration Rate Date Value Ref Range Status 02/02/2023 102 >=60 mL/min/1.73m? Final Comment: Estimated Glomerular Filtration Rate (eGFR) is calculated using the 2020 CKD-EPI creatinine equation. This equation utilizes serum creatinine, sex, and age as parameters. The creatinine assay has traceable calibration to isotope dilution-mass spectrometry. Refer to KDIGO guidelines for clinical interpretation. In patients with unstable renal function, e.g. those with acute kidney injury, the eGFR may not accurately reflect actual GFR. eGFR- Date Value Ref Range Status 08/26/2021 >60 Final P.O.C.T. RESULTS: POC done: Yes, See Lab Tab February 02, 2023 TREATMENT: N/A PERIPHERAL IV DATA: Ambulatory: A peripheral IV was started in the Left antecubital site with a Angio cath: 22 gauge. RADIOLOGY DEPARTMENT: CT; Exam(s) Completed: Abdomen/Pelvis SIGNATURE: RT Lis(R) PATIENT NAME: Campbell Hastings DATE: February 02, 2023 TIME: 1:55 PM [facility] 02-02-2023 Note HNO ID: [id number] Author: RT Daniele(R) Service: ? Author Type: Technologist Type: Progress Notes Filed: 02/02/2023 8:36 AM Note Text: Radiology Service Progress Note PATIENT NAME: Campbell Hastings DATE OF SERVICE: February 02, 2023 TIME: 8:35 AM PATIENT IDENTITY VERIFICATION COMPLETED USING TWO (2) IDENTIFIERS: Name and Date of confirmed by patient verbally. FALL SCREENING: Has the patient had 2 falls in the last year or 1 fall with injury or currently using an Ambulatory Assistive Device (Walker, Cane, Wheelchair, Crutches, etc.)? No PATIENT GENDER DATA: Male PATIENT RELEVANT IMPLANT DATA REVIEWED: Not Applicable RADIOLOGY DEPARTMENT: General X-ray: Exam(s) Completed: Chest X-Ray PERIPHERAL IV DATA: Not applicable SIGNED BY: Annabelle Bermudez RT(R) February 02, 2023 8:35 AM [facility] 02-02-2023 History of Presen t illness Narrative Radiology Service Progress Note DATE OF SERVICE: February 02, 2023 TIME: 1:55 PM PATIENT IDENTITY VERIFICATION COMPLETED USING TWO (2) STANDARD IDENTIFIERS: Name and Date of confirmed by patient verbally. FALL SCREENING: Has the patient had 2 falls in the last year or 1 fall with injury or currently using an Ambulatory Assistive Device (Walker, Cane, Wheelchair, Crutches, etc.)? No PATIENT GENDER DATA: Male PATIENT RELEVANT IMPLANT DATA REVIEWED: Yes ALLERGIES: Reviewed and unchanged CONTRAST ALLERGY: NO. EXAM: CT -CONTRAST INDUCED NEPHROPATHY RISK FACTORS: Not applicable CREATININE: Creatinine Date Value Ref Range Status 02/02/2023 0.81 0.73 - 1.22 mg/dL Final 07/24/2022 0.71 (L) 0.73 - 1.22 mg/dL Final 02/13/2022 0.96 0.73 - 1.22 mg/dL Final Estimated Glomerular Filtration Rate Date Value Ref Range Status 02/02/2023 102 >=60 mL/min/1.73m Final Comment: Estimated Glomerular Filtration Rate (eGFR) is calculated using the 2020 CKD-EPI creatinine equation. This equation utilizes serum creatinine, sex, and age as parameters. The creatinine assay has traceable calibration to isotope dilution-mass spectrometry. Refer to KDIGO guidelines for clinical interpretation. In patients with unstable renal function, e.g. those with acute kidney injury, the eGFR may not accurately reflect actual GFR. eGFR- Date Value Ref Range Status 08/26/2021 >60 Final P.O.C.T. RESULTS: POC done: Yes, See Lab Tab February 02, 2023 TREATMENT: N/A PERIPHERAL IV DATA: Ambulatory: A peripheral IV was started in the Left antecubital site with a Angio cath: 22 gauge. RADIOLOGY DEPARTMENT: CT; Exam(s) Completed: Abdomen/Pelvis SIGNATURE: RT Lis(R) PATIENT NAME: Campbell Hastings DATE: February 02, 2023 TIME: 1:55 PM documented in this encounter [facility] 09-10-[address] Garcia removed as PCP documented in this encounter [facility] 08-26-2022 History of Presen t illness Narrative 1st attempt. Sent [employer] message Please reach out to this patient to see if he is still planning to keep Dr. Garcia as his PCP as he has not been seen by him since 2019. If so, please schedule a 40 minute appointment for a physical and to review overdue health maintenance items. If the patient has transferred care elsewhere, please remove Dr. Garcia's name from the chart. Ammy Kraft APRN.RITA documented in this encounter [facility] 08-04-2022 History of Presen t illness Narrative PATIENT NAME: Campbell Hastings. CLINIC NO: [id number]. ATTENDING PHYSICIAN: Clari Fisher MD. DATE OF SERVICE: 08/04/2022 DIAGNOSIS: Low-grade, non-Hodgkin lymphoma (CD5 negative) / splenic marginal zone lymphoma HPI:this is a 56-year-old otherwise healthy gentleman who worked at [employer] as [employer] presented to Dr. Garcia with a several month history of swelling in the left upper abdomen. although he denies early satiety, abdominal pain, bloating or jaundice. Patient has lost some weight due to exercise and dieting. He has no fever, chills or night sweats. No history of peptic ulcer disease, change of bowel habit, diarrhea or constipation. No history of melena or blood per rectum. His CBC yesterday show an elevated white blood cell count (leukocytosis); he also has a moderate anemia and thrombocytopenia. He has no swollen glands or adenopathy. He has no frequent or recurrent infection. He denied cough shortness of breath. No urinary symptoms. Over the last 3 - 4 years, patient noted that it take him longer to do chores and he did in his fifties. No family history of leukemia lymphoma. Previous treatment: Rituximab/fludarabine/cyclophosp hamide/ Neulasta x 4 Current treatment: Fludarabine/cyclophosphamide x 2; after he had severe infusion reaction to rituximab. interim history: . He has no new complaint. He denies fever, chills or night sweats. He denies weight loss or early satiety or weight loss. He has no chest pain or shortness of breath. All medications & allergies updated and reviewed by me. REVIEW OF SYSTEMS: CONSTITUTIONAL: No fevers, chills, nightsweats, unintended weight loss HEENT: Denies frequent or severe heaches, nasal congestion/sinus symptoms, problematic allergy problems. EYES: No diplopia or blurry vision. CARDIOVASCULAR: No chest pain, dyspnea, palpitations, orthopnea, PND, ankle edema. PULM: No dyspnea, unexplained cough. GI: No dysphagia/odynophagia, problematic reflux, constipation, diarrhea, changes in stool habits, hematochezia, melena. . Nor early satiety. : No new urinary complaints, including dysuria, gross hematuria or pyuria. NEURO: No new balance problems, peripheral weakness/paresthesias or numbness of concern. MUSC-SKEL: No new joint pain, swelling, or erythema. PSY: No concerns regarding depression, anxiety or panic. INTEGUMENTARY: No new skin changes (rash, new or changing mole, new growth) PHYSICAL EXAMINATION: 56-year-old well-nourished well-developed gentleman appeared to be distress performance status: 100% BP 135/92 Pulse 81 Temp (Src) 97.5 (Temporal) Ht 6' 1 (1.85m) Wt 218 lb (98.9kg) BMI 28.77 kg/(m^2). HEENT: Head is normocephalic, atraumatic. Sclerae white, conjunctivae pink. PEERL. EOMs are intact. Oropharynx is benign. LYMPHATICS: There is no palpable adenopathy in the neck, supraclavicular region, axillae, or groin. LUNGS: Lungs are clear to percussion and auscultation. HEART: Heart is normal without murmurs, gallops, or rubs. ABDOMEN: Soft and nondistended No other masses can be palpated. no hernia. His spleen is palpable 3 cm below left costal margin & nontender EXTREMITIES: Are without edema. no petechiae NEUROLOGIC: Exam is physiologic LABORATORY DATA: Component Latest Ref Rng & Units 07/24/2022 WBC 3.70 - 11.00 k/uL 4.34 RBC 4.20 - 6.00 m/uL 4.50 Hemoglobin 13.0 - 17.0 g/dL 13.3 Hematocrit 39.0 - 51.0 % 39.8 MCV 80.0 - 100.0 fL 88.4 MCH 26.0 - 34.0 pg 29.6 MCHC 30.5 - 36.0 g/dL 33.4 RDW-CV 11.5 - 15.0 % 15.0 Platelet Count 150 - 400 k/uL 122 (L) MPV 9.0 - 12.7 fL 9.1 Neut% % 41.3 Abs Neut (ANC) 1.45 - 7.50 k/uL 1.79 Lymph% % 48.4 Abs Lymph 1.00 - 4.00 k/uL 2.10 Camas% % 5.5 Abs Camas <0.87 k/uL 0.24 Eosin% % 3.9 Abs Eosin <0.46 k/uL 0.17 Baso% % 0.7 Abs Baso <0.11 k/uL 0.03 Immature Gran % % 0.2 IMMATURE GRANS (ABS) <0.10 k/uL <0.03 NRBC /100 WBC 0.0 Absolute nRBC <0.01 k/uL <0.01 DTYPE Auto Component Latest Ref Rng & Units 07/24/2022 Protein, Total 6.3 - 8.0 g/dL 7.4 Albumin 3.9 - 4.9 g/dL 4.5 Calcium 8.5 - 10.2 mg/dL 9.7 Bilirubin, Total 0.2 - 1.3 mg/dL 0.4 Alkaline Phosphatase 38 - 113 U/L 98 AST 14 - 40 U/L 15 ALT 10 - 54 U/L 13 Glucose 74 - 99 mg/dL 90 BUN 9 - 24 mg/dL 18 Creatinine 0.73 - 1.22 mg/dL 0.71 (L) Sodium 136 - 144 mmol/L 138 Potassium 3.7 - 5.1 mmol/L 4.3 Chloride 97 - 105 mmol/L 103 CO2 22 - 30 mmol/L 25 Anion Gap 9 - 18 mmol/L 10 eGFR >=60 mL/min/1.73m 106 LD 135 - 225 U/L 176 US spleen: COMPARISON: Ultrasound spleen on 02/13/2022 RESULT: Spleen measurements: 16.8 x 6.7 x 13.5 cm, previously 15.5 x 7.1 x 14.2 cm. Lesions: None IMPRESSION: Splenomegaly. Left renal cysts ASSESSMENT: 56-year-old gentleman with low -grade splenic marginal zone lymphoma with near complete response to FRC; severe infusion reaction to Rituximab and was discontinued. -Slow progression disease -Persistent lymphopenia and thrombocytopenia -No bleeding or increased bruising and asymptomatic with moderate splenomegaly. PLAN: -Continue observation and follow-up in 6 months -Repeat CBC, CMP, LDH, and chest x-ray & CT abdomen pelvis OV in 6 months. -Possible repeat treatment with rituximab or obintumumab with premedications or desensitization if needed for progression of disease. -His last option would be splenectomy if he has symptomatic splenomegaly and a severe infusion reaction to rituximab or obintumumab Portions of this documentation were copied and pasted from previous office visit notes in order to provide a cohesive continuity of the history. The note has been reviewed and edited and updated as necessary. Clari Fisher MD Cc: Dr. Regan Garcia documented in this encounter [facility] 07-24-2022 History of Presen t illness Narrative Radiology Service Progress Note PATIENT NAME: Campbell Hastings DATE OF SERVICE: July 24, 2022 TIME: 11:48 AM PATIENT IDENTITY VERIFICATION COMPLETED USING TWO (2) IDENTIFIERS: Name and Date of confirmed by patient verbally. FALL SCREENING: Has the patient had 2 falls in the last year or 1 fall with injury or currently using an Ambulatory Assistive Device (Walker, Cane, Wheelchair, Crutches, etc.)? No PATIENT GENDER DATA: Male PATIENT RELEVANT IMPLANT DATA REVIEWED: Not Applicable RADIOLOGY DEPARTMENT: Ultrasound PERIPHERAL IV DATA: Not applicable SIGNED BY: Tamera [place] RDMS July 24, 2022 11:48 AM documented in this encounter [facility] 07-08-2022 Miscellaneous Notes Patient rescheduled. Cristina Hickman Per Email Devon [id number] move 08/21 appointment to 08/[address] Fisher and US scheduled for 08/18 will need rescheduled for prior to 08/07 1st attempt: LM When pt returns call please assist pt in rescheduling the above appointments as directed. Once completed please document in this encounter. Thank You! documented in this encounter [facility] 06-14-2022 History of Presen t illness Narrative Patient presents with: Cough: Sinus x 3 week, SOB, feels worse than when had Covid 3 weeks ago HPI: Tested positive for COVID 3 weeks ago (05/22/22). He has not noticed improvement since. Feeling more sick for 2 weeks. His had COVID also. Positive symptoms: Cough, sleep disturbance from cough, Sinus pressure, Nasal Congestion, Rhinorrhea, maybe Post nasal drainage, unable to smell, Shortness of breath, dyspnea on exertion, Sore throat, some tussive emesis, diarrhea a couple days ago following constipation, Body Aches, Fatigue Negative symptoms: Fever, chest pain OTC: Cold Medicine, advil, Tylenol, chloraseptic MEDICATIONS: Current Outpatient Medications Medication Sig acetaminophen (TYLENOL) 500 mg tablet Take 500 mg by mouth every 6 hours as needed. ibuprofen (MOTRIN) 200 mg tablet Take 400 mg by mouth every 6 hours as needed. No current facility-administered medications for this visit. ALLERGIES: ALLERGIES Allergen Reactions Compazine [Prochlor* Other: See Comments Dizziness Rituxan [Rituximab] Hives VITALS: BP 120/82 Pulse 81 Temp 37.1 C (98.8 F) Resp 22 Wt 97.5 kg (215 lb) SpO2 97% BMI 29.16 kg/m PHYSICAL EXAM: GEN: Pleasant, in no acute distress, alert. HEENT: PERRL, EOMI, conjunctiva clear Ears: canals clear. TMs without erythema, bulge, or effusion Sinuses: non-tender frontal sinus, non-tender maxillary sinuses, notes pain deep between the eyes. Throat: moist mucous membranes, mild erythema, no exudate Neck: supple, no thyromegaly, no lymphadenopathy HEART: regular rate and rhythm, no murmurs LUNGS: few faint scattered wheezes, no increased WOB ASSESSMENT/PLAN: 1. SOB (shortness of breath) - ICD9: 786.05, ICD10: R06.02 (primary diagnosis) - XR CHEST 2V FRONTAL/LAT - no pneumonia. 2. Acute COVID-19 - ICD9: 079.89, ICD10: U07.1 Reviewed supportive care. Follow up with PCP for persistent symptoms. - XR CHEST 2V FRONTAL/LAT - BENZONATATE 100 MG CAPSULE 3. Acute non-recurrent sinusitis, unspecified location - ICD9: 461.9, ICD10: J01.90 Treat for possible secondary bacterial sinusitis. - DOXYCYCLINE MONOHYDRATE 100 MG CAPSULE Benson Zhou MD documented in this encounter [facility] 02-21-2022 Miscellaneous Notes Scheduled. MC sent. Please place order for US. Patient will need scheduled for US spleen, CBC/CMP/LDH a few days prior to OV. Patient would like like afternoon. Okay to send [employer] message with appt time/date. documented in this encounter [facility] 02-20-2022 History of Presen t illness Narrative PATIENT NAME: Campbell Hastings. CLINIC NO: [id number]. ATTENDING PHYSICIAN: Clari Fisher MD. DATE OF SERVICE: 02/20/2022 DIAGNOSIS: Low-grade, non-Hodgkin lymphoma (CD5 negative) / splenic marginal zone lymphoma HPI:this is a 56-year-old otherwise healthy gentleman who worked at [employer] as [employer] presented to Dr. Garcia with a several month history of swelling in the left upper abdomen. although he denies early satiety, abdominal pain, bloating or jaundice. Patient has lost some weight due to exercise and dieting. He has no fever, chills or night sweats. No history of peptic ulcer disease, change of bowel habit, diarrhea or constipation. No history of melena or blood per rectum. His CBC yesterday show an elevated white blood cell count (leukocytosis); he also has a moderate anemia and thrombocytopenia. He has no swollen glands or adenopathy. He has no frequent or recurrent infection. He denied cough shortness of breath. No urinary symptoms. Over the last 3 - 4 years, patient noted that it take him longer to do chores and he did in his fifties. No family history of leukemia lymphoma. Previous treatment: Rituximab/fludarabine/cyclophosp hamide/ Neulasta x 4 Current treatment: Fludarabine/cyclophosphamide x 2; after he had severe infusion reaction to rituximab. interim history: . He has no new complaint. He denies fever, chills or night sweats. He denies weight loss or early satiety. He has no chest pain or shortness of breath. All medications & allergies updated and reviewed by me. REVIEW OF SYSTEMS: CONSTITUTIONAL: No fevers, chills, nightsweats, unintended weight loss HEENT: Denies frequent or severe heaches, nasal congestion/sinus symptoms, problematic allergy problems. EYES: No diplopia or blurry vision. CARDIOVASCULAR: No chest pain, dyspnea, palpitations, orthopnea, PND, ankle edema. PULM: No dyspnea, unexplained cough. GI: No dysphagia/odynophagia, problematic reflux, constipation, diarrhea, changes in stool habits, hematochezia, melena. . Nor early satiety. : No new urinary complaints, including dysuria, gross hematuria or pyuria. NEURO: No new balance problems, peripheral weakness/paresthesias or numbness of concern. MUSC-SKEL: No new joint pain, swelling, or erythema. PSY: No concerns regarding depression, anxiety or panic. INTEGUMENTARY: No new skin changes (rash, new or changing mole, new growth) PHYSICAL EXAMINATION: 56-year-old well-nourished well-developed gentleman appeared to be distress performance status: 100% BP 132/82 Pulse 91 Temp 98.6 Wt 223 lb (101.2kg) SpO2 96% HEENT: Head is normocephalic, atraumatic. Sclerae white, conjunctivae pink. PEERL. EOMs are intact. Oropharynx is benign. LYMPHATICS: There is no palpable adenopathy in the neck, supraclavicular region, axillae, or groin. LUNGS: Lungs are clear to percussion and auscultation. HEART: Heart is normal without murmurs, gallops, or rubs. ABDOMEN: Soft and nondistended No other masses can be palpated. no hernia. His spleen is palpable 2 cm below left costal margin & nontender EXTREMITIES: Are without edema. no petechiae NEUROLOGIC: Exam is physiologic LABORATORY DATA: Component Latest Ref Rng & Units 02/13/2022 WBC 3.70 - 11.00 k/uL 3.06 (L) RBC 4.20 - 6.00 m/uL 4.32 Hemoglobin 13.0 - 17.0 g/dL 13.3 Hematocrit 39.0 - 51.0 % 39.4 MCV 80.0 - 100.0 fL 91.2 MCH 26.0 - 34.0 pg 30.8 MCHC 30.5 - 36.0 g/dL 33.8 RDW-CV 11.5 - 15.0 % 14.3 Platelet Count 150 - 400 k/uL 87 (L) MPV 9.0 - 12.7 fL 9.5 Neut% % 55.3 Abs Neut (ANC) 1.45 - 7.50 k/uL 1.69 Lymph% % 31.0 Abs Lymph 1.00 - 4.00 k/uL 0.95 (L) Camas% % 8.5 Abs Camas <0.87 k/uL 0.26 Eosin% % 4.6 Abs Eosin <0.46 k/uL 0.14 Baso% % 0.3 Abs Baso <0.11 k/uL <0.03 Immature Gran % % 0.3 IMMATURE GRANS (ABS) <0.10 k/uL <0.03 NRBC /100 WBC 0.0 Absolute nRBC <0.01 k/uL <0.01 DTYPE Auto Component Latest Ref Rng & Units 02/13/2022 Protein, Total 6.3 - 8.0 g/dL 6.8 Albumin 3.9 - 4.9 g/dL 4.6 Calcium 8.5 - 10.2 mg/dL 8.9 Bilirubin, Total 0.2 - 1.3 mg/dL 0.6 Alkaline Phosphatase 38 - 113 U/L 97 AST 14 - 40 U/L 19 ALT 10 - 54 U/L 18 Glucose 74 - 99 mg/dL 67 (L) BUN 9 - 24 mg/dL 23 Creatinine 0.73 - 1.22 mg/dL 0.96 Sodium 136 - 144 mmol/L 139 Potassium 3.7 - 5.1 mmol/L 3.7 Chloride 97 - 105 mmol/L 103 CO2 22 - 30 mmol/L 25 Anion Gap 9 - 18 mmol/L 11 eGFR >=60 mL/min/1.73m 92 LD 135 - 225 U/L 216 US: Spleen measurements: 15.5 x 7.1 x 14.2 cm, previously 15.4 cm. Lesions: None - COMPARISON: CT abdomen pelvis on 08/26/2021 IMPRESSION: Splenomegaly. 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 -Stable disease. 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 -Possible treatment with rituximab or obintumumab with premedications and desensitization if needed in the future for progression of disease. Portions of this documentation were copied and pasted from previous office visit notes in order to provide a cohesive continuity of the history. The note has been reviewed and edited and updated as necessary. Clari Fisher MD Cc: Dr. Regan Garcia documented in this encounter [facility] 02-13-2022 History of Presen t illness Narrative Radiology Service Progress Note PATIENT NAME: Campbell Hastings DATE OF SERVICE: February 13, 2022 TIME: 3:53 PM PATIENT IDENTITY VERIFICATION COMPLETED USING TWO (2) IDENTIFIERS: Name and Date of confirmed by patient verbally. FALL SCREENING: Has the patient had 2 falls in the last year or 1 fall with injury or currently using an Ambulatory Assistive Device (Walker, Cane, Wheelchair, Crutches, etc.)? No PATIENT GENDER DATA: Male PATIENT RELEVANT IMPLANT DATA REVIEWED: Not Applicable RADIOLOGY DEPARTMENT: Ultrasound PERIPHERAL IV DATA: Not applicable SIGNED BY: Daphnie Hoffmann RDMS RVT February 13, 2022 3:53 PM documented in this encounter [facility] Diagnosis Marginal zone lymphoma of spleen (HCC)- Primary Marginal zone lymphoma, spleen Splenomegaly Thrombocytopenia (HCC) Thrombocytopenia, unspecified [facility] Diagnosis Marginal zone lymphoma of spleen (HCC)- Primary Marginal zone lymphoma, spleen [facility]* Diagnosis SOB (shortness of breath)- Primary Shortness of breath Acute COVID-19 Acute non-recurrent sinusitis, unspecified location [facility] Diagnosis Marginal zone lymphoma of spleen (HCC)- Primary Marginal zone lymphoma, spleen Splenomegaly Thrombocytopenia (HCC) Thrombocytopenia, unspecified [facility]* Diagnosis Marginal zone lymphoma of spleen (HCC)- Primary Marginal zone lymphoma, spleen [facility] Diagnosis Marginal zone lymphoma of spleen (HCC)- Primary Marginal zone lymphoma, spleen [facility]* Diagnosis Marginal zone lymphoma of spleen (HCC) Marginal zone lymphoma, spleen [facility]* Diagnosis CLL (chronic lymphocytic leukemia) (HCC)- Primary Chronic lymphoid leukemia, without mention of having achieved remission Thrombocytopenia (HCC) Thrombocytopenia, unspecified Splenomegaly Marginal zone lymphoma of spleen (HCC) Marginal zone lymphoma, spleen [facility] Diagnosis CLL (chronic lymphocytic leukemia) (HCC)- Primary Chronic lymphoid leukemia, without mention of having achieved remission Thrombocytopenia (HCC) Thrombocytopenia, unspecified Splenomegaly [facility]* Diagnosis CLL (chronic lymphocytic leukemia) (HCC)- Primary Chronic lymphoid leukemia, without mention of having achieved remission Thrombocytopenia (HCC) Thrombocytopenia, unspecified Splenomegaly [facility] Diagnosis Marginal zone lymphoma of spleen (HCC)- Primary Marginal zone lymphoma, spleen [facility]* Diagnosis Marginal zone lymphoma of spleen (HCC)- Primary Marginal zone lymphoma, spleen [facility]* Diagnosis Marginal zone lymphoma of spleen (HCC)- Primary Marginal zone lymphoma, spleen Nocturia more than twice per night Thrombocytopenia (HCC) Thrombocytopenia, unspecified documented in this encounter [facility] for referral (narrative)* Diagnostic Procedure Only (Routine) - Closed Specialty Diagnoses / Procedures Referred By Contac t Referred To Contact US IMAGING Diagnoses Marginal zone lymphoma of spleen (HCC) Thrombocytopenia (HCC) Splenomegaly Procedures US ABD SPLEEN US ABDOMINAL REAL TIME W/IMAGE LIMITED Clari Fisher MD [address] [place] [address] Us Imaging Referral ID Status Reason Start Date Expiration Date V isits Requested Visits Authorized [id number] Closed Auto-Generate d Referral 02/26/2022 09/28/2022 1 1 [facility] for referral (narrative)* Diagnostic Procedure Only (Routine) - Authorized Specialty Diagnoses / Procedures Referred By Contac t Referred To Contact US IMAGING Diagnoses Marginal zone lymphoma of spleen (HCC) Procedures US ABD SPLEEN US ABDOMINAL REAL TIME W/IMAGE LIMITED Clari Fisher MD [address] [place] [place] [address] Us Imaging Referral ID Status Reason Start Date Expiration Date Visits Requested Visits Authorized [id number] Authorized Auto-Generat ed Referral 08/18/2022 03/22/2023 1 1 [facility] for referral (narrative)* Diagnostic Procedure Only (Routine) - Authorized Specialty Diagnoses / Procedures Referred By Contac t Referred To Contact US IMAGING Diagnoses Marginal zone lymphoma of spleen (HCC) Procedures US ABD SPLEEN US ABDOMINAL [place] W/[place] [address] [place] [address] Us Imaging Referral ID Status Reason Start Date Expiration Date Visits Requested Visits Authorized [id number] Authorized Auto-Generat ed Referral 07/29/2023 03/13/2024 1 [facility] Diagnostic Procedure Only (Routine) - Closed Specialty Diagnoses / Procedures Referred By Contcatrachito t Referred To Contact US IMAGING Diagnoses Marginal zone lymphoma of spleen (HCC) Procedures US ABD SPLEEN US ABDOMINAL REAL TIME W/IMAGE LIMITED Clari Fisher MD [address] [place] [address] [place] [address] Referral ID Status Reason Start Date Expiration Date V isits Requested Visits Authorized [id number] Closed Auto-Generate d Referral 08/18/2022 03/22/2023 1 1 [facility] Advance Directives No Advanced Directives Records FoundDocuments on File Type Date Recorded 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 Advance Directive(s) 05/17/2018 10:19 AM Advance Directive(s) 04/21/2018 11:08 AM Documents on File Type Date Recorded 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 Advance Directive(s) 05/17/2018 10:19 AM Advance Directive(s) 04/21/2018 11:08 AM Documents on File Type Date Recorded 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 Advance Directive(s) 05/17/2018 10:19 AM Documents on File Type Date Recorded 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 Advance Directive(s) 05/17/2018 10:19 AM Reason for Referral Specialty Diagnoses / Procedures Referred By Contac t Referred To Contact CT IMAGING Diagnoses Marginal zone lymphoma of spleen (HCC) Procedures CT ABD/PEL W IVCON CT ABD & PELVIS W/CONTRAST Clari Fisher MD [address] [place] [place] [address] Ct Imaging Referral ID Status Reason Start Date Expiration Date Visits Requested Visits Authorized [id number] Authorized Auto-Generat ed Referral 02/01/2023 09/03/2023 1 1 Specialty Diagnoses / Procedures Referred By Contac t Referred To Contact CT IMAGING Diagnoses Marginal zone lymphoma of spleen (HCC) Procedures CT ABD/PEL W IVCON CT ABD & PELVIS W/CONTRAST Clari Fisher MD [address] [employer] [place] [id number] [facility] [place] [address] Referral ID Status Reason Start Date Expiration Date V isits Requested Visits Authorized [id number] Closed Auto-Generate d Referral 02/01/2023 09/03/2023 1 1 Specialty Diagnoses / Procedures Referred By Contac t Referred To Contact Urology Diagnoses Nocturia more than twice per night Procedures CONSULT TO UROLOGY OFFICE/OUTPATIENT NEW HIGH MDM 60 MINUTES Kenia Olson [address] [place] [address] Referral ID Status Reason Start Date Expiration Date Visits Requested Visits Authorized [id number] Authorized PCP Requested Referral 09/25/2023 09/24/2024 1 1 Summary Purpose Family History No Family History Records Found Additional Source Comments Source Comments (unrecognize d section and content) In the event this informatio n is protected by the Federal Confidentiality of Alcohol and Drug Abuse Patient Records regulations: The Federal rules restrict any use of the information to criminally investigate or prosecute any alcohol or drug abuse patient.[facility] event this information is protected by the Federal Confidentiality of Alcohol and Drug Abuse Patient Records regulations: The Federal rules restrict any use of the information to criminally investigate or prosecute any alcohol or drug abuse patient.[facility] HamiltonIn the event this information is protected by the Federal Confidentiality of Alcohol and Drug Abuse Patient Records regulations: The Federal rules restrict any use of the information to criminally investigate or prosecute any alcohol or drug abuse patient.[facility] HamiltonIn the event this information is protected by the Federal Confidentiality of Alcohol and Drug Abuse Patient Records regulations: The Federal rules restrict any use of the information to criminally investigate or prosecute any alcohol or drug abuse patient.[facility] HamiltonIn the event this information is protected by the Federal Confidentiality of Alcohol and Drug Abuse Patient Records regulations: The Federal rules restrict any use of the information to criminally investigate or prosecute any alcohol or drug abuse patient.[facility] HamiltonIn the event this information is protected by the Federal Confidentiality of Alcohol and Drug Abuse Patient Records regulations: The Federal rules restrict any use of the information to criminally investigate or prosecute any alcohol or drug abuse patient.[facility] HamiltonIn the event this information is protected by the Federal Confidentiality of Alcohol and Drug Abuse Patient Records regulations: The Federal rules restrict any use of the information to criminally investigate or prosecute any alcohol or drug abuse patient.[facility] HamiltonIn the event this information is protected by the Federal Confidentiality of Alcohol and Drug Abuse Patient Records regulations: The Federal rules restrict any use of the information to criminally investigate or prosecute any alcohol or drug abuse patient.[facility] HamiltonIn the event this information is protected by the Federal Confidentiality of Alcohol and Drug Abuse Patient Records regulations: The Federal rules restrict any use of the information to criminally investigate or prosecute any alcohol or drug abuse patient.[facility] HamiltonIn the event this information is protected by the Federal Confidentiality of Alcohol and Drug Abuse Patient Records regulations: The Federal rules restrict any use of the information to criminally investigate or prosecute any alcohol or drug abuse patient.[facility] HamiltonIn the event this information is protected by the Federal Confidentiality of Alcohol and Drug Abuse Patient Records regulations: The Federal rules restrict any use of the information to criminally investigate or prosecute any alcohol or drug abuse patient.[facility] HamiltonIn the event this information is protected by the Federal Confidentiality of Alcohol and Drug Abuse Patient Records regulations: The Federal rules restrict any use of the information to criminally investigate or prosecute any alcohol or drug abuse patient.[facility] HamiltonIn the event this information is protected by the Federal Confidentiality of Alcohol and Drug Abuse Patient Records regulations: The Federal rules restrict any use of the information to criminally investigate or prosecute any alcohol or drug abuse patient.[facility] HamiltonIn the event this information is protected by the Federal Confidentiality of Alcohol and Drug Abuse Patient Records regulations: The Federal rules restrict any use of the information to criminally investigate or prosecute any alcohol or drug abuse patient.[facility] HamiltonIn the event this information is protected by the Federal Confidentiality of Alcohol and Drug Abuse Patient Records regulations: The Federal rules restrict any use of the information to criminally investigate or prosecute any alcohol or drug abuse patient.[facility] HamiltonIn the event this information is protected by the Federal Confidentiality of Alcohol and Drug Abuse Patient Records regulations: The Federal rules restrict any use of the information to criminally investigate or prosecute any alcohol or drug abuse patient.[facility] HamiltonIn the event this information is protected by the Federal Confidentiality of Alcohol and Drug Abuse Patient Records regulations: The Federal rules restrict any use of the information to criminally investigate or prosecute any alcohol or drug abuse patient.[facility] HamiltonIn the event this information is protected by the Federal Confidentiality of Alcohol and Drug Abuse Patient Records regulations: The Federal rules restrict any use of the information to criminally investigate or prosecute any alcohol or drug abuse patient.[facility] HamiltonIn the event this information is protected by the Federal Confidentiality of Alcohol and Drug Abuse Patient Records regulations: The Federal rules restrict any use of the information to criminally investigate or prosecute any alcohol or drug abuse patient.[facility] HamiltonIn the event this information is protected by the Federal Confidentiality of Alcohol and Drug Abuse Patient Records regulations: The Federal rules restrict any use of the information to criminally investigate or prosecute any alcohol or drug abuse patient.[facility] HamiltonIn the event this information is protected by the Federal Confidentiality of Alcohol and Drug Abuse Patient Records regulations: The Federal rules restrict any use of the information to criminally investigate or prosecute any alcohol or drug abuse patient.[facility] HamiltonIn the event this information is protected by the Federal Confidentiality of Alcohol and Drug Abuse Patient Records regulations: The Federal rules restrict any use of the information to criminally investigate or prosecute any alcohol or drug abuse patient.[facility] HamiltonIn the event this information is protected by the Federal Confidentiality of Alcohol and Drug Abuse Patient Records regulations: The Federal rules restrict any use of the information to criminally investigate or prosecute any alcohol or drug abuse patient.[facility] HamiltonIn the event this information is protected by the Federal Confidentiality of Alcohol and Drug Abuse Patient Records regulations: The Federal rules restrict any use of the information to criminally investigate or prosecute any alcohol or drug abuse patient.[facility] HamiltonIn the event this information is protected by the Federal Confidentiality of Alcohol and Drug Abuse Patient Records regulations: The Federal rules restrict any use of the information to criminally investigate or prosecute any alcohol or drug abuse patient.[facility] Reason for Visit (unrecogniz ed section and content) Specialty Diagnoses / Procedures Referred By Contac t Referred To Contact Hematology/Oncology / HEMATOLOGY/ONCOLOGY Diagnoses Abnormal CBC CBC/CMP/OV/CHEMO 09/28* (ALTERNATE DAPHNE/LAURA) Procedures OFFICE/OUTPATIENT ESTABLISHED MOD MDM 30 MIN EST PATIENT W/[place] [address] [place] [address] Kenia Olson [address] [place] [address] Referral ID Status Reason Start Date Expiration Date Visits Re quested Visits Authorized [id number] Closed 09/25/2023 07/19/2024 1 1 Reason Comments Imm/Inj Specialty Diagnoses / Procedures Referred By Contac t Referred To Contact Diagnoses CLL (chronic lymphocytic leukemia) (HCC) Thrombocytopenia (HCC) Splenomegaly Small cell b-cell lymphoma, spleen Procedures OBINUTUZUMAB INJ INJ BENDAMUSTINE, US 1MG INJECTION, PEGFILGRASTIM, EXCLUDES BIOSIMILAR, 0.5 [place] [id number] [place] [id number] [facility] [address] [place] [address] Referral ID Status Reason Start Date Expiration Date Visits Requested Visits Authorized [id number] Waiting for Response Patient Cleared - Admin/Chair man/Directo r advise to proceed or did not respond 08/19/2023 08/17/2024 [address] Specialty Diagnoses / Procedures Referred By Contac t Referred To Contact CT IMAGING Diagnoses Marginal zone lymphoma of spleen (HCC) Procedures CT ABD/PEL W IVCON CT ABD & PELVIS W/CONTRAST Clari Fisher MD [address] [place] [address] [place] [address] Referral ID Status Reason Start Date Expiration Date V isits Requested Visits Authorized [id number] Closed Auto-Generate d Referral 02/01/2023 09/03/2023 1 1 Reason Comments Radiology [place] Specialty Diagnoses / Procedures Referred By Contac t Referred To Contact US IMAGING Diagnoses Marginal zone lymphoma of spleen (HCC) Thrombocytopenia (HCC) Splenomegaly Procedures US ABD SPLEEN US ABDOMINAL REAL TIME W/IMAGE LIMITED Clari Fisher MD [address] [place] [address] [facility] Imaging Referral ID Status Reason Start Date Expiration Date V isits Requested Visits Authorized [id number] Closed Auto-Generate d Referral 02/26/2022 09/28/2022 1 1 Reason Comments Established Patient Reason Comments Future Appointment Reason Comments Cough Sinus x 3 week, SOB, feels worse than when had Covid 3 weeks ago Reason Comments Appointment Reason Comments Consult Established patient Specialty Diagnoses / Procedures Referred By Contac t Referred To Contact US IMAGING Diagnoses Marginal zone lymphoma of spleen (HCC) Procedures US ABD SPLEEN US ABDOMINAL REAL TIME W/IMAGE LIMITED Clari Fisher MD [address] [place] [address] [facility] [place] [address] Referral ID Status Reason Start Date Expiration Date V isits Requested Visits Authorized [id number] Closed Auto-Generate d Referral 08/18/2022 03/22/2023 1 1 Reason Comments Chemotherapy Treatment Referral ID Status Reason Start Date Expiration Date V isits Requested Visits Authorized [id number] Pending Review 08/19/2023 08/17/2024 99 99 Reason Comments Future Appointment Reason Comments Care Coordination CYCLE 1/DAY 1 POST T REATMENT CALL Reason Comments Appointment CHEMO START Reason Comments Care Coordination Toxicity Check -Symp toms Reason Comments Transfusion Care Teams (unrecognized sec tion and content) Middleware Systems Architect Relationship Specialty Start Date End Date Adria Garcia MD [address] [place] [address] [place] [address] PCP - General Family Practice 04/08/18 Vee Mir, RN Cart Driver 08/27/18 Middleware Systems Architect Relationship Specialty Start Date End Date Adria Garcia MD [address] [facility] [address] [place], [place] [id number] PCP - General Family Medicine 04/08/18 Vee Mir, RN Cart Driver 08/27/18 Middleware Systems Architect Relationship Specialty Start Date End Date Adria Garcia MD [address] [facility] [place] [address] PCP - General Family Medicine 04/08/18 Vee Mir, RN Cart Driver 08/27/18 Clari Fisher MD [address] [place] [address] Hematology/Oncology 07/04/22 Middleware Systems Architect Relationship Specialty Start Date End Date Adria Garcia MD [address] [facility] [place] [address] PCP - General Family Medicine 04/08/18 Vee Mir RN Cart Driver 08/27/18 Clari Fisher MD [address] [place] [address] Hematology/Oncology 07/04/22 Middleware Systems Architect Relationship Specialty Start Date End Date Adria Garcia MD [address] [facility] [place] [address] PCP - General Family Medicine 04/08/18 Vee Mir RN Cart Driver 08/27/18 Clari Fisher MD [address] [place] [address] Hematology/Oncology 07/04/22 Middleware Systems Architect Relationship Specialty Start Date End Date Adria Garcia MD [address] [facility] [place] [address] PCP - General Family Medicine 04/08/18 09/09/22 Vee Mir RN Cart Driver 08/27/18 Clari Fisher MD [address] [place], [place] [address] Hematology/Oncology 07/04/22 Middleware Systems Architect Relationship Specialty Start Date End Date Vee Mir RN Cart Driver 08/27/18 Clari Fisher MD Hematology/Oncology 07/04/22 Middleware Systems Architect Relationship Specialty Start Date End Date Vee Mir RN Cart Driver 08/27/18 02/26/23 Clari Fisher MD Hematology/Oncology 07/04/22 02/26/23 Middleware Systems Architect Relationship Specialty Start Date End Date Adria aGrcia MD [address] [place] [address] [place] [address] PCP - General Family Medicine 04/08/18 09/09/22 Vee Mir RN Cart Driver 08/27/18 02/26/23 Clari Fisher MD Hematology/Oncology 07/04/22 02/26/23 Middleware Systems Architect Relationship Specialty Start Date End Date Vee Mir RN Cart Driver 08/27/18 02/26/23 Clari Fisher MD Hematology/Oncology 07/04/22 02/26/23 Middleware Systems Architect Relationship Specialty Start Date End Date Dima Serna MD [address] [place], [place] [address] Hematology/Oncology 02/27/23 Debi Kaplan RN [address] [place] [address] Specialty Envelope Patternmaker Hematology/Oncology 08/21/23 Middleware Systems Architect Relationship Specialty Start Date End Date Dima Serna MD [address] [place] [address] Hematology/Oncology 02/27/23 Debi Kaplan, TIM [address] [place] [address] Specialty Envelope Patternmaker Hematology/Oncology 08/21/23 Middleware Systems Architect Relationship Specialty Start Date End Date Dima Serna MD [address] [place] [address] Hematology/Oncology 02/27/23 Debi Kaplan, TIM [address] [place] [address] Specialty Envelope Patternmaker Hematology/Oncology 08/21/23 Middleware Systems Architect Relationship Specialty Start Date End Date Dima Serna MD [address] [place] [address] Hematology/Oncology 02/27/23 Debi Kaplan RN [address] [place] [address] Specialty Envelope Patternmaker Hematology/Oncology 08/21/23 Middleware Systems Architect Relationship Specialty Start Date End Date Dima Serna MD [address] [place] [address] Hematology/Oncology 02/27/23 Debi Kaplan, TIM [address] [place] [address] Specialty Envelope Patternmaker Hematology/Oncology 08/21/23 Middleware Systems Architect Relationship Specialty Start Date End Date Dima Serna MD [address] [place] [address] Hematology/Oncology 02/27/23 Debi Kaplan, RN [address] [place] [address] Specialty Envelope Patternmaker Hematology/Oncology 08/21/23 Middleware Systems Architect Relationship Specialty Start Date End Date Dima Serna MD [address] [place] [address] Hematology/Oncology 02/27/23 Debi Kaplan, RN [address] [place] [address] Specialty Envelope Patternmaker Hematology/Oncology 08/21/23 Middleware Systems Architect Relationship Specialty Start Date End Date Dima Serna MD [address] [place] [address] Hematology/Oncology 02/27/23 Debi Kaplan, RN [address] [place] [address] Specialty Envelope Patternmaker Hematology/Oncology 08/21/23 Middleware Systems Architect Relationship Specialty Start Date End Date Dima Serna MD [address] [place] [address] Hematology/Oncology 02/27/23 Debi Kaplan, RN [address] [place] [address] Specialty Envelope Patternmaker Hematology/Oncology 08/21/23 Middleware Systems Architect Relationship Specialty Start Date End Date Dima Serna MD [address] [place] [address] Hematology/Oncology 02/27/23 Debi Kaplan, RN [address] [place], [place] [address] Specialty Envelope Patternmaker Hematology/Oncology 08/21/23 Inactive Administered Medications - up to 3 most recent administrations Administered Medications (un recognized section and content) Inactive Administered Medications - up to 3 most recent administrations Medication Order MAR Action Action Date Dose Rate Site acetaminophen 650 mg tab(s) (TYLENOL) 650 mg, ORAL, ONCE, 1 dose, On Thu09/02/23 at 0800, Give 30 minutes prior to infusion. No more than 4000 mg of acetaminophen should be given per day (FROM ALL SOURCES), If ordered PRN for pain, patient/guardian may elect to receive this medication for higher pain levels INSTEAD of the opioid, if preferred: N/A Given 09/02/2023 8:03 AM EST 650 mg bendamustine 200 mg in NaCl 0.9% 548 mL 200 mg (rounded from 207 mg = 90 mg/m2 2.3 m2 Treatment Plan BSA from Recorded weight), INTRAVENOUS, Administer over 30 Minutes, ONCE, 1 dose, On Thu09/02/23 at 0800, exp 1100 09/02/23 (room temp) Hazardous Chemotherapy Drug: Use appropriate PPE. Antineoplastic Irritant. Refrigerate. New Bag/Syringe/Bottle 09/02/2023 8:25 AM EST 200 mg dexAMETHasone 10 mg in NaCl 0.9% 50 mL (DECADRON) 10 mg, INTRAVENOUS, Administer over 15 Minutes, ONCE, 1 dose, On Thu09/02/23 at 0800, Administer 30 minutes prior to infusion. Refrigerate. New Bag/Syringe/Bottle 09/02/2023 8:02 AM EST 10 mg diphenhydrAMINE 50 mg (BENADRYL) 50 mg, ORAL, ONCE, 1 dose, On Thu09/02/23 at 0800, Give 30 minutes prior to infusion. Given 09/02/2023 8:03 AM EST 50 mg ondansetron (PF) 8 mg injection (ZOFRAN) 8 mg, INTRAVENOUS, ONCE, 1 dose, On Thu09/02/23 at 0800, Medication Substitution: [facility] preferred product has been replaced with the insurance mandated product Given 09/02/2023 8:02 AM EST 8 mg Inactive Administered Medications - up to 3 most recent administrations Medication Order MAR Action Action Date Dose Rate Site pegfilgrastim 6 mg injection (NEULASTA) 6 mg, SUBCUTANEOUS, ONCE, 1 dose, On Agnes 09/03/23 at 1430 Given 09/03/2023 2:40 PM EST 6 mg Arm, Right (unrecognized sect ion and content) No Status Records Found INFORMATION SOURCE (unrecogn ized section and content) FOR RECORDS PERTAINING TO PATIENTS WHO ARE OR HAVE BEEN ENROLLED IN A CHEMICAL DEPENDENCY/SUBSTANCEABUSE PROGRAM, SOME INFORMATION MAY BE OMITTED. This clinical summary was aggregated from multiple sources. Caution should be exercised in using it in the provision of clinical care. This summary normalizes information from multiple sources, and as a consequence, information in this document may materially change the coding, format and clinical context of patient data. In addition, data may be omitted in some cases. CLINICAL DECISIONS SHOULD BE BASED ON THE PRIMARY CLINICAL RECORDS. [employer] provides no warranty or guarantee of the accuracy or completeness of information in this document.
[2023-09-28 08:48] VITALS: BP 106/64; PULSE 97; RESP 16; TEMP 36.7; O2SAT 96
[2023-09-28] MEDS: 0.9% Normal Saline (500mL Bag) 500 ML 15 ML IV (09:00)
[2023-09-28] MEDS: DiphenhydrAMINE 50 MG/ML Syringe 25 MG IV (09:00)
[2023-09-28] MEDS: Acetaminophen 325 MG Tablet 650 MG PO (09:00)
[2023-09-28] MEDS: 0.9% NaCl Peripheral Flush Adult/Peds IV (09:00)
[2023-09-28 09:37] VITALS: BP 96/55; PULSE 92; RESP 16; TEMP 37.3; O2SAT 96
[2023-09-28 10:34] VITALS: BP 106/61; PULSE 85; RESP 16; TEMP 36.6; O2SAT 94
== END 2023-09-28 08:16 | disposition home or self-care (01) ==
LOC: MEDOUTP 08:16
PROVIDERS: PCP Internal Medicine; Referring Provider Internal Medicine Hematology & Oncology; Visit Provider Internal Medicine Hematology & Oncology
DX: D69.6 Thrombocytopenia, unspecified (principal)
CPT/HCPCS: 96374; 36430; 86644; 86850; 86900; 86901; 86920; 86922; J7040; P9016; A4216

== ENCOUNTER 2023-10-01 07:58 | Outpatient (CLI) | payer OTHER, SELFPAY ==
[2023-10-01 08:08] VITALS: BP 121/70; PULSE 70; RESP 16; TEMP 35.9; O2SAT 99
--- OUTSIDE RECORDS SUMMARY | 2023-10-01 08:22 | XMS RPT_ITS | CCD ---
Author Name Unknown Address [address] [place] [address] Organization [facility] Care Team Providers Care Heel Stainer Name Role Phone Jose AMADOR, Adria Romero Primary Care Provider Clarke DUMONT, Vee Unavailable Unavailable Jose AMADOR, Adria Romero Primary Care Provider [phone] Clarke DUMONT, Vee Unavailable Unavailable Clari Fisher MD Unavailable Jose AMADOR, Adria Romero Primary Care Provider Clari Fisher MD Unavailable Clarke DUMONT, Vee Unavailable Unavailable Clari Fisher MD Unavailable Dima Serna MD Unavailable Debi Kaplan RN Unavailable DIMA SERNA Attending Unavailable ABRAMOVICH, DIMA Referring Unavailable ABRAMOVICH, DIMA Referring Unavailable ABRAMOVICH, DIMA Referring Unavailable ABRAMREX, DIMA Attending Unavailable CLARI FISHER Referring Unavailable NATALIA, CLARI Referring Unavailable CLARI FISHER Referring Unavailable ABRAMOVICH, DIMA Referring Unavailable ABRAMOVICH, DIMA Referring Unavailable ABRAMOVICH, DIMA Referring Unavailable KENIA OLSON Attending Unavailable ABRAMREX, DIMA Referring Unavailable CLARI FISHER Referring Unavailable CLARI FISHER Referring Unavailable ABRAMOVICH, DIMA Referring Unavailable ABRAMOVICH, DIMA Referring Unavailable ABRAMOVICH, DIMA Referring Unavailable ABRAMREX, DIMA Referring Unavailable Allergies Allergy Classification Reported Allergen(s) Allergy Type Date of Onset Reaction(s) Facility (20 sources) Prochlorperazine ; Translations: [PROCHLORPERAZIN E EDISYLATE] Drug Allergy 05-31-2018 Other: See Comments [facility] (20 sources) riTUXimab; Translations: [RITUXIMAB] Drug Allergy 08-16-2018 [facility] Medications Current Medications Medication Drug Class(es) Dates [...] 6 hours as needed. 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 Other gastrointestinal disorders (20 sources) Splenomegaly; Translations: [Splenomegaly, not elsewhere classified] Onset: 04-07-2018 Episodic Other lower respiratory disease (1 source) Dyspnea; Translations: [Shortness of breath] Episodic Other upper respiratory infections (1 source) Acute sinusitis; Translations: [Acute sinusitis, unspecified] Episodic Unclassified (1 source) Chemotherapy Treatment Onset: 09-01-2023 Viral infection (1 source) COVID-19; Translations: [Other specified viral infection] Episodic Results Test Name Value Interpretation Reference Range Facil ity Vital Signs Date Time Vital Sign Value Performing Clinician Faci lity 09-29-2023 13:36-0400 Diastolic blood pressure 65 mm[Hg] Treatment Wstr Work Phone: [facility] 09-29-2023 13:36-0400 Systolic blood pressure 120 mm[Hg] Treatment Wstr Work Phone: [facility] 09-29-2023 12:57-0400 Heart rate 93 /min Treatment Wstr Work Phone: [facility] 09-29-2023 12:57-0400 SaO2% (BldA) [Mass fraction] 100 % Treatment Wstr Work Phone: [facility] 09-29-2023 08:39-0400 Body temperature 98.49 [degF] Treatment Wstr Work Phone: [facility] 09-29-2023 08:39-0400 Body weight 96.62 kg Treatment Wstr Work Phone: [facility] 09-25-2023 09:53-0500 Body temperature 98.71 [degF] Kenia Olson Work Phone: [facility] 09-25-2023 09:53-0500 Body weight 97.98 kg Kenia Olson Work Phone: [facility] 09-25-2023 09:53-0500 Diastolic blood pressure 66 mm[Hg] Kenia Olson Work Phone: [facility] 09-25-2023 09:53-0500 Heart rate 93 /min Kenia Olson Work Phone: [facility] 09-25-2023 09:53-0500 SaO2% (BldA) [Mass fraction] 95 % Kenia Olson Work Phone: [facility] 09-25-2023 09:53-0500 Systolic blood pressure 118 mm[Hg] Kenia Olson Work Phone: [facility] 09-03-2023 14:38-0500 Body temperature 98.91 [degF] Injection Wstr Work Phone: [facility] 09-03-2023 14:38-0500 Diastolic blood pressure 94 mm[Hg] Injection Wstr Work Phone: [facility] 09-03-2023 14:38-0500 Heart rate 80 /min Injection Wstr Work Phone: [facility] 09-03-2023 14:38-0500 SaO2% (BldA) [Mass fraction] 100 % Injection Wstr Work Phone: [facility] 09-03-2023 14:38-0500 Systolic blood pressure 155 mm[Hg] Injection Wstr Work Phone: [facility] 09-02-2023 07:48-0500 Body temperature 97.5 [degF] Treatment Wstr Work Phone: [facility] 09-02-2023 07:48-0500 Diastolic blood pressure 71 mm[Hg] Treatment Wstr Work Phone: [facility] 09-02-2023 07:48-0500 Heart rate 85 /min Treatment Wstr Work Phone: [facility] 09-02-2023 07:48-0500 SaO2% (BldA) [Mass fraction] 100 % Treatment Wstr Work Phone: [facility] 09-02-2023 07:48-0500 Systolic blood pressure 157 mm[Hg] Treatment Wstr Work Phone: [facility] 09-01-2023 13:15-0500 Diastolic blood pressure 70 mm[Hg] Treatment Wstr Work Phone: [facility] 09-01-2023 13:15-0500 Heart rate 84 /min Treatment Wstr Work Phone: [facility] 09-01-2023 13:15-0500 Respiratory rate 16 /min Treatment Wstr Work Phone: [facility] 09-01-2023 13:15-0500 SaO2% (BldA) [Mass fraction] 100 % Treatment Wstr Work Phone: [facility] 09-01-2023 13:15-0500 Systolic blood pressure 142 mm[Hg] Treatment Wstr Work Phone: [facility] 09-01-2023 08:05-0500 Body temperature 98.1 [degF] Treatment Wstr Work Phone: [facility] 09-01-2023 08:05-0500 Body weight 100.7 kg Treatment Wstr Work Phone: [facility] 02-12-2023 11:21-0400 Body height 182.9 cm Dima Serna MD Work Phone: [facility] 02-12-2023 11:21-0400 Body temperature 98.4 [degF] Dima Serna MD Work Phone: [facility] 02-12-2023 11:21-0400 Body weight 100.47 kg Dima Serna MD Work Phone: [facility] 02-12-2023 11:21-0400 Diastolic blood pressure 73 mm[Hg] Dima Serna MD Work Phone: [facility] 02-12-2023 11:21-0400 Heart rate 73 /min Dima Serna MD Work Phone: [facility] 02-12-2023 11:21-0400 Respiratory rate 14 /min Dima Serna MD Work Phone: [facility] 02-12-2023 11:21-0400 SaO2% (BldA) [Mass fraction] 98 % Dima Serna MD Work Phone: [facility] 02-12-2023 11:21-0400 Systolic blood pressure 115 mm[Hg] Dima Serna MD Work Phone: [facility] 08-04-2022 11:24-0500 Body height 185.4 cm Clari Fisher MD Work Phone: [facility] 08-04-2022 11:24-0500 Body temperature 97.5 [degF] Clari Fisher MD Work Phone: [facility] 01-16-2023 11:24-0500 Body weight 98.88 kg Clari Fisher MD Work Phone: [facility] 08-04-2022 11:24-0500 Diastolic blood pressure 92 mm[Hg] Clari Fisher MD Work Phone: [facility] 08-04-2022 11:24-0500 Heart rate 81 /min Clari Fisher MD Work Phone: [facility] 08-04-2022 11:24-0500 Systolic blood pressure 135 mm[Hg] Clari Fisher MD Work Phone: [facility] 06-14-2022 11:20-0500 Body temperature 98.8 [degF] Benson Zhou MD Work Phone: [facility] 06-14-2022 11:20-0500 Body weight 97.52 kg Benson Zhou MD Work Phone: [facility] 06-14-2022 11:20-0500 Diastolic blood pressure 82 mm[Hg] Benson Zhou MD Work Phone: [facility] 06-14-2022 11:20-0500 Heart rate 81 /min Benson Zhou MD Work Phone: [facility] 06-14-2022 11:20-0500 Respiratory rate 22 /min Benson Zhou MD Work Phone: [facility] 06-14-2022 11:20-0500 SaO2% (BldA) [Mass fraction] 97 % Benson Zhou MD Work Phone: [facility] 06-14-2022 11:20-0500 Systolic blood pressure 120 mm[Hg] Benson Zhou MD Work Phone: [facility] 02-20-2022 15:49-0400 Body temperature 98.6 [degF] Clari Fisher MD Work Phone: [facility] 02-20-2022 15:49-0400 Body weight 101.15 kg Clari Fisher MD Work Phone: [facility] 08-04-2022 15:49-0400 Diastolic blood pressure 82 mm[Hg] Clari Fisher MD Work Phone: [facility] 02-20-2022 15:49-0400 Heart rate 91 /min Clari Fisher MD Work Phone: [facility] 02-20-2022 15:49-0400 SaO2% (BldA) [Mass fraction] 96 % Clari Fisher MD Work Phone: [facility] 02-20-2022 15:49-0400 Systolic blood pressure 132 mm[Hg] Clari Fisher MD Work Phone: [facility] Encounters Encounter Date Encounter Type Care Provider Facility Start: 09-30-2023 ambulatory DIMA Willson y:[facility] Start: 09-29-2023 Telephone encounter Dima marti MD Work Phone: Hematology/Oncology Procedures Date Procedure Procedure Detail Performing Clinician Start: 09-29-2023 Blood count complete auto&auto difrntl wbc Kenia Olson Work Phone: Start: 02-02-2023 Ct abdomen & pelvis w/contrast [...] Detail Author Start: 09-24-2026 [facility] Start: 09-01-2026 Diabetes Screening [facility] Start: 02-02-2026 DIABETES SCREEN DIABETES SCREEN [facility] Start: 02-02-2026 Diabetes Screening Diabetes Screenin [facility] Start: 07-24-2025 DIABETES SCREEN DIABETES SCREEN [facility] Start: 02-13-2025 DIABETES SCREEN DIABETES SCREEN [facility] Start: 09-29-2023 End: 12-29-2023 CBC W Auto Differential panel - Blood CBC + DIFF Lab STAT Marginal zone lymphoma of spleen (HCC) Expected: 09/29/2023, Expires: 12/29/2023 [facility] Work Phone: Immunizations Immunization Date Immunization Notes Care Provider Fa cility 05-23-2021 influenza, injectabl e, quadrivalent, preservative free Us 1 Work Phone: [facility] 05-23-2021 influenza virus vacc ine, unspecified formulation Ct (I-Stat) Work Phone: [facility] 04-19-2018 influenza, injectabl e, quadrivalent, preservative free Us 1 Work Phone: [facility] 04-19-2018 pneumococcal polysaccharide vaccine, 23 valent Us 1 Work Phone: [facility] Payers Date Payer Category Payer Private Health Insurance [facility] [employer] CHOICE PLUS [id number] 2022-Present [phone] [address] [address] [place] [address] HMO [id number] 2022 Unknown [id number] 2020 Unknown MMO [employer]MO [employer] [id number] 2020-Present [phone] [address] [place] [address] PPO [id number] 2020 Unknown MMO MMO [employer] [id number] 2020-Present [phone] [address] [place] [address] PPO [id number] Social History Date Type Detail Facility Start: 01-04-2020 End: 06-14-2022 Tobacco smoking status NHIS Never smoked tobacco [facility] Start: 01-04-2020 End: 06-14-2022 Tobacco use and exposure Smokeless tobacco non-user [facility] Start: 05-23-2021 End: 09-25-2023 Alcohol intake Current non-drinker of alcohol (finding) [facility] Start: 1965 Sex Assigned At Not on file [facility] Start: 02-02-2023 End: 02-12-2023 History of Social function [facility] Start: 02-02-2023 End: 02-12-2023 Tobacco use panel [facility] Adult Depression Scr eening Assessment 0 [facility] Clinical Notes 02-13-2022 to 09-29-2023 Daren Parra RN - 09/29/2023 12:25 PM EDTTelephone Encounter - Katelynn Luis LPN - 09/29/2023 10:02 AM EDTTelephone Encounter - Mecca Blackburn LPN - 09/25/2023 10:57 AM EST Note Date & Type Note Facility 09-29-2023 Note HNO ID: [id number] Author: DAREN PARRA RN Service: ? Author Type: Registered Nurse Type: Progress Notes Filed: 09/29/2023 17:06 Note Text: Patient returned from bathroom c/o shortness of breath and rigors. Gadzyva stopped. Refer to mar and doc/flow sheets for vital signs. 1243 Patient states feeing much better 1300 Gadzyva restarted [facility] 09-29-2023 History of Presen t illness Narrative Patient returned from bathroom c/o shortness of breath and rigors. Gadzyva stopped. Refer to mar and doc/flow sheets for vital signs. 1243 Patient states feeing much better 1300 Gadzyva restarted documented in this encounter [facility] 09-29-2023 Miscellaneous Notes Pt. Scheduled for transfusion 2 units packed cells @ [facility] 09/29@ 8am. Pt. And lab notified, orders faxed. Katelynn Luis LPN documented in this encounter [facility] 09-25-2023 Note HNO ID: [id number] Author: KENIA OLSON, ? Service: ? Author Type: Nurse Practitioner Type: Progress Notes Filed: 09/25/2023 16:39 Note Text: Domi Hastings 1965 09/25/2023 HISTORY OF PRESENT ILLNESS: Domi Hastings is a 57 year old male [...] Since last visit he was admitted to [facility] for neutropenic fevers/bacteremia following C1D1. [...] by mouth once daily. per discharge from [facility] 09/21/23 metoprolol succinate ER (TOPROL XL) 100 mg Take 100 mg by mouth once daily. per [facility] discharge 09/21/23 acyclovir (ZOVIRAX) 400 [...] obinotuzumab + n (more content not included)... [facility] 09-25-2023 Miscellaneous Notes Pt scheduled for one unit of PRBC at [facility] 09/28/23 at 0830. Pt notified and order faxed with face sheet and insurance cards. Mecca Blackburn LPN documented in this encounter [facility] 09-25-2023 History of Presen t illness Narrative Domi Hastings 1965 09/25/2023 HISTORY OF PRESENT ILLNESS: Domi Hastings is a 57 year old male [...] Since last visit he was admitted to [facility] for neutropenic fevers/bacteremia following C1D1. [...] by mouth once daily. per discharge from [facility] 09/21/23 metoprolol succinate ER (TOPROL XL) 100 mg Take 100 mg by mouth once daily. per [facility] discharge 09/21/23 acyclovir (ZOVIRAX) 400 [...] 1 u blood transfusion on Thursday at [facility]. Reviewed s/s of decreased hgb. Advised to present to ED with any new or worsening SOB, CP, dizziness, lightheadedness. - CBC prelim results. - dicussed with Dr. Serna, plan to recheck counts on Thursday. - low threshold to hold tx Nocturia: - Ongoing for several weeks. UA/culture at [facility] negative. - getting up every 15 minutes during the night, dose not feel that he is completely emptying, impacting sleep - ref to urology Advised to call with any questions or concerns in the meantime. Kenia Olson APRN.IMPROVEMENT MANAGER I spent a total of 60 minutes on the date of the service which included preparing to see the patient, [id number] patient care, completing clinical documentation, obtaining and/or [...] of this patient. documented in this encounter [facility] 09-18-[address] Mitchell is planning to see patient in the hospital today. Blanca Kaplan RN documented in this encounter [facility] 09-15-[address] Serna aware. Will follow for discharge and follow up needs. Blanca Kaplan RN Care Coordination Triage Note [facility] Situation: Patient reports Edema, Fever, and Pain/Back [...] the issue being urgent. Patient going to [facility] ED at this time. is taking him. Debi Kaplan RN September 14, 2023 9:29 AM documented in this encounter [facility] 09-03-2023 Nurse Note Patient presents with: Imm/Inj [...] Katelynn Luis LPN documented in this encounter [facility] 09-03-2023 Miscellaneous Notes CYCLE 1/DAY 1 POST [...] Debi Kaplan RN documented in this encounter [facility] 09-02-2023 Miscellaneous Notes FYI, information regarding scheduling Gazyva was per Winter Gordon RN. Pt to hold introductory dose and start again next month due to reaction. Spouse informed. Per [employer], patient needs Neulasta on 09/03. [...] message. Cristina Hickman documented in this encounter [facility] 09-01-2023 Note HNO ID: [id number] Author: WINTER GORDON RN Service: ? Author [...] oz of water everyday. Winter Gordon RN [facility] 09-01-2023 History of Presen t illness Narrative [...] Winter Gordon RN documented in this encounter [facility] 08-21-2023 Miscellaneous Notes Spouse confirmed appts Left [...] Kaplan RN PSS: Patient to start chemotherapy, [place] orders in. Needs consent. Patient to begin [...] those dates/times either today or tomorrow. Blanca Kaplan, TIM Spouse is returning call for the patient and wants to start bendamustine obinotuzumab, Please return call to spouse to arrange appointments. documented in this encounter [facility] 08-18-2023 Note HNO ID: [id number] Author: DIMA SERNA MD Service: ? Author Type: Physician Type: Progress Notes Filed: 08/18/2023 14:40 Note Text: (Elements copied from my note dated February 12, 2023, have been reviewed and updated where appropriate, and all reflect current assessment and medical decision making from today's encounter, August 18, 2023) HISTORY OF PRESENT ILLNESS: Domi Hastings is a 57 year old male [...] which included preparing to see the patient, [id number] patient care, completing clinical documentation, obtaining and/or reviewing separately obtained history, performing a medically appropriate examination, counseling and educating the patient/family/caregiver, ordering medications, tests, or procedures, independently interpreting results (not separately reported), and communicating results to the patient/family/caregiver. Also in review of NCCN guidelines, discussion with cardiac care unit nurse Electronically Signed: Dima Serna MD August 18, 2023 [facility] 07-29-2023 Note HNO ID: [id number] Author: DAPHNIE HOFFMANN RDMS Service: ? Author Type: Gericare Aide Teacher Type: Progress Notes Filed: 07/30/2023 10:23 Note Text: Radiology Service Progress Note PATIENT NAME: Domi Hastings DATE OF SERVICE: July 30, 2023 [...] applicable SIGNED BY: Daphnie Hoffmann RDMS RVT July 30, 2023 10:22 AM [facility] 02-12-2023 Note HNO ID: [id number] Author: Dima Serna MD Service: ? Author Type: Physician Type: Progress Notes Filed: 02/12/2023 4:03 PM Note Text: HISTORY OF PRESENT ILLNESS: Domi Hastings is a 57 year old male [...] which included preparing to see the patient, xrze-lj-[id number] patient care, completing clinical documentation, obtaining and/or reviewing separately obtained history, performing a medically appropriate examination, counseling and educating the patient/family/caregiver, ordering medications, tests, or procedures, independently interpreting results (not separately reported), and communicating results to the patient/family/caregiver. Electronically Signed: Dima Serna MD February 12, 2023 11:43 AM [facility] 02-12-2023 History of Presen t illness Narrative HISTORY OF PRESENT ILLNESS: Domi Hastings is a 57 year old male [...] which included preparing to see the patient, [id number] patient care, completing clinical documentation, obtaining and/or reviewing separately obtained history, performing a medically appropriate examination, counseling and educating the patient/family/caregiver, ordering medications, tests, or procedures, independently interpreting results (not separately reported), and communicating results to the patient/family/caregiver. Electronically Signed: Dima Serna MD February 12, 2023 11:43 AM documented in this encounter [facility] 02-02-2023 Note HNO ID: [id number] Author: Renay Reef Moffett, RT(R) Service: ? Author Type: Host Hostess Type: Progress Notes Filed: 02/02/2023 1:55 PM [...] Completed: Abdomen/Pelvis SIGNATURE: RT Lis(R) PATIENT NAME: Domi Hastings DATE: February 02, 2023 TIME: 1:55 PM [facility] 02-02-2023 Note HNO ID: [id number] Author: RT Daniele(R) Service: ? Author Type: Technologist Type: Progress Notes Filed: 02/02/2023 8:36 AM Note Text: Radiology Service Progress Note PATIENT NAME: Domi Hastings DATE OF SERVICE: February 02, 2023 [...] PERIPHERAL IV DATA: Not applicable SIGNED BY: RT Daniele(R) February 02, 2023 8:35 AM [facility] 02-02-2023 History of Presen t illness Narrative [...] Completed: Abdomen/Pelvis SIGNATURE: RT Lis(R) PATIENT NAME: Domi Hastings DATE: February 02, 2023 TIME: 1:55 PM documented in this encounter [facility] 09-10-[address] Garcia removed as PCP documented in this encounter [facility] 08-26-2022 History of Presen t illness Narrative 1st attempt. Sent [employer] message Please reach out to this patient [...] Garcia's name from the chart. Ammy Kraft APRN.CNP documented in this encounter [facility] 08-04-2022 History of Presen t illness Narrative PATIENT NAME: Domi Hastings. CLINIC NO: [id number]. ATTENDING PHYSICIAN: Clari Fisher MD. 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 Garcia with a several [...] Abs Lymph 1.00 - 4.00 k/uL 2.10 [place]% % 5.5 Abs [place] <0.87 k/uL 0.24 Eosin% % 3.9 Abs [...] Dr. Regan Garcia documented in this encounter [facility] 07-24-2022 History of Presen t illness Narrative Radiology Service Progress Note PATIENT NAME: Domi Hastings DATE OF SERVICE: July 24, 2022 [...] 2022 11:48 AM documented in this encounter [facility] 07-08-2022 Miscellaneous Notes Patient rescheduled. Cristina Hickman Per Email Devon [id number] move 08/21 appointment to 08/[address] Fisher and US scheduled for 08/18 will need rescheduled for prior to 08/07 1st attempt: LM When pt returns call please assist pt in rescheduling the above appointments as directed. Once completed please document in this encounter. Thank You! documented in this encounter [facility] 06-14-2022 History of Presen t illness Narrative [...] Benson Zhou MD documented in this encounter [facility] 02-21-2022 Miscellaneous Notes Scheduled. MC sent. Please place order for US. Patient will need scheduled for US spleen, CBC/CMP/LDH a few days prior to OV. Patient would like like afternoon. Okay to send [employer] message with appt time/date. documented in this encounter [facility] 02-20-2022 History of Presen t illness Narrative PATIENT NAME: Domi Hastings. CLINIC NO: [id number]. ATTENDING PHYSICIAN: Clari Fisher MD. 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 Garcia with a several [...] Lymph 1.00 - 4.00 k/uL 0.95 (L) [place]% % 8.5 Abs [place] <0.87 k/uL 0.26 Eosin% % 4.6 Abs [...] Dr. Regan Garcia documented in this encounter [facility] 02-13-2022 History of Presen t illness Narrative Radiology Service Progress Note PATIENT NAME: Domi Hastings DATE OF SERVICE: February 13, 2022 [...] Not applicable SIGNED BY: Daphnie Hoffmann RDMS T February 13, 2022 3:53 PM documented in this encounter [facility] Diagnosis Marginal zone lymphoma of spleen (HCC)- Primary Marginal zone lymphoma, spleen Splenomegaly Thrombocytopenia (HCC) Thrombocytopenia, unspecified [facility] Diagnosis Marginal zone lymphoma of spleen (HCC)- Primary Marginal zone lymphoma, spleen [facility] Diagnosis SOB (shortness of breath)- Primary Shortness of breath Acute COVID-19 Acute non-recurrent sinusitis, unspecified location documented [facility]* Diagnosis Marginal zone lymphoma of spleen (HCC)- Primary Marginal zone lymphoma, spleen Splenomegaly Thrombocytopenia (HCC) Thrombocytopenia, unspecified [facility]* Diagnosis Marginal zone lymphoma of spleen (HCC)- Primary Marginal zone lymphoma, spleen [facility]* Diagnosis Marginal zone lymphoma of spleen (HCC)- Primary Marginal zone lymphoma, spleen [facility] Diagnosis Marginal zone lymphoma of spleen (HCC) Marginal zone lymphoma, spleen [facility] Diagnosis CLL (chronic lymphocytic leukemia) (HCC)- Primary Chronic lymphoid leukemia, without mention of having achieved remission Thrombocytopenia (HCC) Thrombocytopenia, unspecified Splenomegaly Marginal zone lymphoma of spleen (HCC) Marginal zone lymphoma, spleen [facility] Diagnosis CLL (chronic lymphocytic leukemia) (HCC)- Primary Chronic lymphoid leukemia, without mention of having achieved remission Thrombocytopenia (HCC) Thrombocytopenia, unspecified Splenomegaly [facility] Diagnosis CLL (chronic lymphocytic leukemia) (HCC)- Primary Chronic lymphoid leukemia, without mention of having achieved remission Thrombocytopenia (HCC) Thrombocytopenia, unspecified Splenomegaly [facility] Diagnosis Marginal zone lymphoma of spleen (HCC)- Primary Marginal zone lymphoma, spleen [facility] Diagnosis Marginal zone lymphoma of spleen (HCC)- Primary Marginal zone lymphoma, spleen [facility] Diagnosis Marginal zone lymphoma of spleen (HCC)- Primary Marginal zone lymphoma, spleen Nocturia more than twice per night Thrombocytopenia (HCC) Thrombocytopenia, unspecified [facility] Diagnosis Marginal zone lymphoma of spleen (HCC)- Primary Marginal zone lymphoma, spleen [facility] Diagnosis Marginal zone lymphoma of spleen (HCC)- Primary Marginal zone lymphoma, spleen CLL (chronic lymphocytic leukemia) (HCC) Chronic lymphoid leukemia, without mention of having achieved remission Thrombocytopenia (HCC) Thrombocytopenia, unspecified Splenomegaly [facility] Diagnostic Procedure Only (Routine) - Closed Specialty Diagnoses / Procedures Referred By Contac t Referred To Contact US IMAGING Diagnoses Marginal zone lymphoma of spleen (HCC) Thrombocytopenia (HCC) Splenomegaly Procedures US ABD SPLEEN US ABDOMINAL REAL TIME W/IMAGE LIMITED Clari Fisher MD [address] [facility] [address] Us Imaging Referral ID Status Reason Start Date Expiration Date V isits Requested Visits Authorized [id number] Closed Auto-Generate d Referral 02/26/2022 09/28/2022 1 1 [facility] for referral (narrative)* Diagnostic Procedure Only (Routine) - Authorized Specialty Diagnoses / Procedures Referred By Contac t Referred To Contact US IMAGING Diagnoses Marginal zone lymphoma of spleen (HCC) Procedures US ABD SPLEEN US ABDOMINAL REAL TIME W/IMAGE LIMITED Clari Fisher MD [address] [place] [address] Us Imaging Referral ID Status Reason Start Date Expiration Date Visits Requested Visits Authorized [id number] Authorized Auto-Generat ed Referral 08/18/2022 03/22/2023 1 1 [facility] for referral (narrative)* Diagnostic Procedure Only (Routine) - Authorized Specialty Diagnoses / Procedures Referred By Contac t Referred To Contact US IMAGING Diagnoses Marginal zone lymphoma of spleen (HCC) Procedures US ABD SPLEEN US ABDOMINAL REAL [place] W/[place] [address] [place] [address] Us Imaging Referral ID Status Reason Start Date Expiration Date Visits Requested Visits Authorized [id number] Authorized Auto-Generat ed Referral 07/29/2023 03/13/2024 1 1 T [facility] for referral (narrative)* Diagnostic Procedure Only (Routine) - Closed Specialty Diagnoses / Procedures Referred By Contac t Referred To Contact US IMAGING Diagnoses Marginal zone lymphoma of spleen (HCC) Procedures US ABD SPLEEN US ABDOMINAL REAL TIME W/IMAGE LIMITED Clari Fisher MD [address] [place] [address] [place] [address] Referral ID Status Reason Start Date Expiration Date V isits Requested Visits Authorized [id number] Closed Auto-Generate d Referral 08/18/2022 03/22/2023 1 1 [facility] Advance Directives No Advanced Directives Records FoundDocuments on File Type Date Recorded Patient Automatic Presser Expl anation Advance Directive(s) 05/17/2018 10:19 AM Advance Directive(s) 04/21/2018 11:08 AM Documents on File Type Date Recorded Patient Automatic Presser Expl anation Advance Directive(s) 05/17/2018 10:19 AM Advance Directive(s) 04/21/2018 11:08 AM Documents on File Type Date Recorded Patient Automatic Presser Expl anation Advance Directive(s) 05/17/2018 10:19 AM Documents on File Type Date Recorded Patient Automatic Presser Expl anation Advance Directive(s) 05/17/2018 10:19 AM Reason for Referral Specialty Diagnoses / Procedures Referred By Contac t Referred To Contact CT IMAGING Diagnoses Marginal zone lymphoma of spleen (HCC) Procedures CT ABD/PEL W IVCON CT ABD & PELVIS W/CONTRAST Clari Fisher MD [address] [place] [address] Ct Imaging Referral ID Status Reason Start Date Expiration Date Visits Requested Visits Authorized [id number] Authorized Auto-Generat ed Referral 02/01/2023 09/03/2023 1 1 Specialty Diagnoses / Procedures Referred By Contac t Referred To Contact CT IMAGING Diagnoses Marginal zone lymphoma of spleen (HCC) Procedures CT ABD/PEL W IVCON CT ABD & PELVIS W/CONTRAST Clari Fisher MD [address] [place] [address] Ct Imaging [place] [address] Referral ID Status Reason Start Date Expiration Date V isits Requested Visits Authorized [id number] Closed Auto-Generate d Referral 02/01/2023 09/03/2023 1 1 Specialty Diagnoses / Procedures Referred By Contac t Referred To Contact Urology Diagnoses Nocturia more than twice per night Procedures CONSULT TO UROLOGY OFFICE/OUTPATIENT [facility] 60 MINUTES Kenia Olson [address] [place] [address] Referral ID Status Reason Start Date Expiration Date Visits Requested Visits Authorized [id number] Authorized PCP Requested Referral 09/25/2023 09/24/2024 1 [...] or prosecute any alcohol or drug abuse patient.[facility] Hospital[facility] the event this information is protected by the Federal Confidentiality of Alcohol and Drug Abuse Patient Records regulations: The Federal rules restrict any use of the information to criminally investigate or prosecute any alcohol or drug abuse patient.[facility] HospitalIn the event this information is protected by the Federal Confidentiality of Alcohol and Drug Abuse Patient Records regulations: The Federal rules restrict any use of the information to criminally investigate or prosecute any alcohol or drug abuse patient.[facility] HospitalIn the event this information is protected by the Federal Confidentiality of Alcohol and Drug Abuse Patient Records regulations: The Federal rules restrict any use of the information to criminally investigate or prosecute any alcohol or drug abuse patient.[facility] HospitalIn the event this information is protected by the Federal Confidentiality of Alcohol and Drug Abuse Patient Records regulations: The Federal rules restrict any use of the information to criminally investigate or prosecute any alcohol or drug abuse patient.[facility] HospitalIn the event this information is protected by the Federal Confidentiality of Alcohol and Drug Abuse Patient Records regulations: The Federal rules restrict any use of the information to criminally investigate or prosecute any alcohol or drug abuse patient.[facility] HospitalIn the event this information is protected by the Federal Confidentiality of Alcohol and Drug Abuse Patient Records regulations: The Federal rules restrict any use of the information to criminally investigate or prosecute any alcohol or drug abuse patient.[facility] HospitalIn the event this information is protected by the Federal Confidentiality of Alcohol and Drug Abuse Patient Records regulations: The Federal rules restrict any use of the information to criminally investigate or prosecute any alcohol or drug abuse patient.[facility] HospitalIn the event this information is protected by the Federal Confidentiality of Alcohol and Drug Abuse Patient Records regulations: The Federal rules restrict any use of the information to criminally investigate or prosecute any alcohol or drug abuse patient.[facility] HospitalIn the event this information is protected by the Federal Confidentiality of Alcohol and Drug Abuse Patient Records regulations: The Federal rules restrict any use of the information to criminally investigate or prosecute any alcohol or drug abuse patient.[facility] HospitalIn the event this information is protected by the Federal Confidentiality of Alcohol and Drug Abuse Patient Records regulations: The Federal rules restrict any use of the information to criminally investigate or prosecute any alcohol or drug abuse patient.[facility] HospitalIn the event this information is protected by the Federal Confidentiality of Alcohol and Drug Abuse Patient Records regulations: The Federal rules restrict any use of the information to criminally investigate or prosecute any alcohol or drug abuse patient.[facility] HospitalIn the event this information is protected by the Federal Confidentiality of Alcohol and Drug Abuse Patient Records regulations: The Federal rules restrict any use of the information to criminally investigate or prosecute any alcohol or drug abuse patient.[facility] HospitalIn the event this information is protected by the Federal Confidentiality of Alcohol and Drug Abuse Patient Records regulations: The Federal rules restrict any use of the information to criminally investigate or prosecute any alcohol or drug abuse patient.[facility] HospitalIn the event this information is protected by the Federal Confidentiality of Alcohol and Drug Abuse Patient Records regulations: The Federal rules restrict any use of the information to criminally investigate or prosecute any alcohol or drug abuse patient.[facility] HospitalIn the event this information is protected by the Federal Confidentiality of Alcohol and Drug Abuse Patient Records regulations: The Federal rules restrict any use of the information to criminally investigate or prosecute any alcohol or drug abuse patient.[facility] HospitalIn the event this information is protected by the Federal Confidentiality of Alcohol and Drug Abuse Patient Records regulations: The Federal rules restrict any use of the information to criminally investigate or prosecute any alcohol or drug abuse patient.[facility] HospitalIn the event this information is protected by the Federal Confidentiality of Alcohol and Drug Abuse Patient Records regulations: The Federal rules restrict any use of the information to criminally investigate or prosecute any alcohol or drug abuse patient.[facility] HospitalIn the event this information is protected by the Federal Confidentiality of Alcohol and Drug Abuse Patient Records regulations: The Federal rules restrict any use of the information to criminally investigate or prosecute any alcohol or drug abuse patient.[facility] HospitalIn the event this information is protected by the Federal Confidentiality of Alcohol and Drug Abuse Patient Records regulations: The Federal rules restrict any use of the information to criminally investigate or prosecute any alcohol or drug abuse patient.[facility] HospitalIn the event this information is protected by the Federal Confidentiality of Alcohol and Drug Abuse Patient Records regulations: The Federal rules restrict any use of the information to criminally investigate or prosecute any alcohol or drug abuse patient.[facility] HospitalIn the event this information is protected by the Federal Confidentiality of Alcohol and Drug Abuse Patient Records regulations: The Federal rules restrict any use of the information to criminally investigate or prosecute any alcohol or drug abuse patient.[facility] HospitalIn the event this information is protected by the Federal Confidentiality of Alcohol and Drug Abuse Patient Records regulations: The Federal rules restrict any use of the information to criminally investigate or prosecute any alcohol or drug abuse patient.[facility] HospitalIn the event this information is protected by the Federal Confidentiality of Alcohol and Drug Abuse Patient Records regulations: The Federal rules restrict any use of the information to criminally investigate or prosecute any alcohol or drug abuse patient.[facility] HospitalIn the event this information is protected by the Federal Confidentiality of Alcohol and Drug Abuse Patient Records regulations: The Federal rules restrict any use of the information to criminally investigate or prosecute any alcohol or drug abuse patient.[facility] HospitalIn the event this information is protected by the Federal Confidentiality of Alcohol and Drug Abuse Patient Records regulations: The Federal rules restrict any use of the information to criminally investigate or prosecute any alcohol or drug abuse patient.[facility] HospitalIn the event this information is protected by the Federal Confidentiality of Alcohol and Drug Abuse Patient Records regulations: The Federal rules restrict any use of the information to criminally investigate or prosecute any alcohol or drug abuse patient.[facility] HospitalIn the event this information is protected by the Federal Confidentiality of Alcohol and Drug Abuse Patient Records regulations: The Federal rules restrict any use of the information to criminally investigate or prosecute any alcohol or drug abuse patient.[facility] Reason for Visit (unrecogniz ed section and content) Specialty Diagnoses / Procedures Referred By Yaya hoff Referred To Contact Hematology/Oncology / HEMATOLOGY/ONCOLOGY Diagnoses Abnormal CBC CBC/CMP/OV/CHEMO 09/28* (ALTERNATE DAPHNE/LAURA) Procedures OFFICE/OUTPATIENT ESTABLISHED MOD MDM 30 MIN EST PATIENT W/[place] [address] [place] [address] Kenia Olson [address] [place] [address] Referral ID Status Reason Start Date Expiration Date Visits Re quested Visits Authorized [id number] Closed 09/25/2023 07/19/2024 1 1 Reason Comments Imm/Inj Specialty Diagnoses / Procedures Referred By Yaya hoff Referred To Contact Diagnoses CLL (chronic lymphocytic leukemia) (HCC) Thrombocytopenia (HCC) Splenomegaly Small cell b-cell lymphoma, spleen Procedures OBINUTUZUMAB INJ INJ BENDAMUSTINE, US 1MG INJECTION, PEGFILGRASTIM, EXCLUDES BIOSIMILAR, 0.[address] [place] [address] [place] [address] Raciel [facility] [address] [place] [address] Referral ID Status Reason Start Date Expiration Date Visits Requested Visits Authorized [id number] Waiting for Response Patient Cleared - Admin/Chair man/Directo r advise to proceed or did not respond 08/19/2023 08/17/2024 [address] Specialty Diagnoses / Procedures Referred By Contac t Referred To Contact CT IMAGING Diagnoses Marginal zone lymphoma of spleen (HCC) Procedures CT ABD/PEL W IVCON CT ABD & PELVIS W/CONTRAST Clair Fisher MD [address] [place], [place] [id number] Ct Imaging [id number] Referral ID Status Reason Start Date Expiration Date V isits Requested Visits Authorized [id number] Closed Auto-Generate d Referral 02/01/2023 09/03/2023 1 1 Reason Comments Radiology US Specialty Diagnoses / Procedures Referred By Contac t Referred To Contact US IMAGING Diagnoses Marginal zone lymphoma of spleen (HCC) Thrombocytopenia (HCC) Splenomegaly Procedures US ABD SPLEEN US ABDOMINAL REAL TIME W/IMAGE LIMITED Clari Fisher MD [address] [place] [address] Us Imaging Referral ID Status Reason Start Date Expiration Date V isits Requested Visits Authorized [id number] Closed Auto-Generate d Referral 02/26/2022 09/28/2022 1 [...] REAL TIME W/IMAGE LIMITED Clari Fisher MD [address] [place] [address] Us Imaging [id number] Referral ID Status Reason Start Date Expiration Date V isits Requested Visits Authorized [id number] Closed Auto-Generate d Referral 08/18/2022 03/22/2023 1 1 Reason Comments Chemotherapy Treatment Referral ID Status Reason Start Date Expiration Date V isits Requested Visits Authorized [id number] Pending Review 08/19/2023 08/17/2024 99 99 Reason Comments Future Appointment Reason Comments Care Coordination CYCLE 1/DAY 1 POST T REATMENT CALL Reason Comments Appointment CHEMO START Reason Comments Care Coordination Toxicity Check -Symp toms Reason Comments Transfusion Specialty Diagnoses / Procedures Referred By Contac t Referred To Contact Diagnoses CLL (chronic lymphocytic leukemia) (HCC) Thrombocytopenia (HCC) Splenomegaly Small cell b-cell lymphoma, spleen Procedures OBINUTUZUMAB INJ INJ BENDAMUSTINE, US 1MG INJECTION, PEGFILGRASTIM, EXCLUDES BIOSIMILAR, 0.[place] [address] [address] [place] [address] Raciel [facility] [address] [place] [address] Referral ID Status Reason Start Date Expiration Date V isits Requested Visits Authorized [id number] Closed Patient Cleared - Admin/Chairm an/Director advise to proceed or did not respond 08/19/2023 07/19/2024 99 99 Care Teams (unrecognized sec tion and content) Heel Stainer Relationship Specialty Start Date End Date Adria Garcia MD [address] [facility] [address] [place], [place] [phone] PCP - General Family Practice 04/08/18 Vee Mir, RN Crew Truck Driver 08/27/18 Heel Stainer Relationship Specialty Start Date End Date Adria Garcia MD [address] [facility] [address] [place], [place] [phone] PCP - General Family Medicine 04/08/18 Vee Mir RN Crew Truck Driver 08/27/18 Heel Stainer Relationship Specialty Start Date End Date Adria Garcia MD [address] [facility] [address] [place], [place] [phone] PCP - General Family Medicine 04/08/18 Vee Mir RN Crew Truck Driver 08/27/18 Clari iFsher MD [address] [place], [place] [id number] Hematology/Oncology 07/04/22 Heel Stainer Relationship Specialty Start Date End Date Adria Garcia MD [address] [facility] [address] [place] [phone] PCP - General Family Medicine 04/08/18 Vee Mir RN Crew Truck Driver 08/27/18 Clari Fisher MD [address] [place], [place] [address] Hematology/Oncology 07/04/22 Heel Stainer Relationship Specialty Start Date End Date Adria Garcia MD [address] [facility] [address] [place], [place] [address] PCP - General Family Medicine 04/08/18 Vee Mir RN Crew Truck Driver 08/27/18 Clari Fisher MD [address] [place], [place] [address] Hematology/Oncology 07/04/22 Heel Stainer Relationship Specialty Start Date End Date Adria Garcia MD [address] [facility] [address] [place], [place] [address] PCP - General Family Medicine 04/08/18 09/09/22 Vee Mir RN Crew Truck Driver 08/27/18 Clari Fisher MD [address] [place], [place] [phone] Hematology/Oncology 07/04/22 Heel Stainer Relationship Specialty Start Date End Date Vee Mir RN Crew Truck Driver 08/27/18 Clari Fisher MD Hematology/Oncology 07/04/22 Heel Stainer Relationship Specialty Start Date End Date Vee Mir RN Crew Truck Driver 08/27/18 02/26/23 Clari Fisher MD Hematology/Oncology 07/04/22 02/26/23 Heel Stainer Relationship Specialty Start Date End Date Adria Garcia MD 1 [facility] [address] [place], [place] [phone] PCP - General Family Medicine 04/08/18 09/09/22 Vee Mir RN Crew Truck Driver 08/27/18 02/26/23 Clari Fisher MD Hematology/Oncology 07/04/22 02/26/23 Heel Stainer Relationship Specialty Start Date End Date Vee Mir RN Crew Truck Driver 08/27/18 02/26/23 Clari Fisher MD Hematology/Oncology 07/04/22 02/26/23 Heel Stainer Relationship Specialty Start Date End Date Dima Serna MD [address] [place] [address] Hematology/Oncology 02/27/23 Debi Kaplan, TIM [address] [place] [address] Specialty Glueline Worker Hematology/Oncology 08/21/23 Heel Stainer Relationship Specialty Start Date End Date Dima Serna MD [address] [place] [address] Hematology/Oncology 02/27/23 Debi Kaplan, TIM [address] [place] [address] Specialty Glueline Worker Hematology/Oncology 08/21/23 Heel Stainer Relationship Specialty Start Date End Date Diam Serna MD [address] [place] [address] Hematology/Oncology 02/27/23 Debi Kaplan RN [address] [place] [address] Specialty Glueline Worker Hematology/Oncology 08/21/23 Heel Stainer Relationship Specialty Start Date End Date Dima Serna MD [address] [place] [address] Hematology/Oncology 02/27/23 Debi Kaplan, TIM [address] [place] [address] Specialty Glueline Worker Hematology/Oncology 08/21/23 Heel Stainer Relationship Specialty Start Date End Date Dima Serna MD [address] [place] [address] Hematology/Oncology 02/27/23 Debi Kaplan, TIM [address] [place] [address] Specialty Glueline Worker Hematology/Oncology 08/21/23 Heel Stainer Relationship Specialty Start Date End Date Dima Serna MD [address] [place] [address] Hematology/Oncology 02/27/23 Debi Kaplan RN [address] [place] [address] Specialty Glueline Worker Hematology/Oncology 08/21/23 Heel Stainer Relationship Specialty Start Date End Date Dima Serna MD [address] [place] [address] Hematology/Oncology 02/27/23 Debi Kaplan, TIM [address] [place] [address] Specialty Glueline Worker Hematology/Oncology 08/21/23 Heel Stainer Relationship Specialty Start Date End Date Dima Serna MD [address] [place] [address] Hematology/Oncology 02/27/23 Debi Kaplan, RN [address] [place] [address] Specialty Glueline Worker Hematology/Oncology 08/21/23 Heel Stainer Relationship Specialty Start Date End Date Dima eSrna MD [address] [place] [address] Hematology/Oncology 02/27/23 Debi Kaplan, RN [address] [place] [address] Specialty Glueline Worker Hematology/Oncology 08/21/23 Heel Stainer Relationship Specialty Start Date End Date Dima Serna MD [address] [place] [address] Hematology/Oncology 02/27/23 Deib Kaplan, RN [address] [place] [address] Specialty Glueline Worker Hematology/Oncology 08/21/23 Heel Stainer Relationship Specialty Start Date End Date Dima Serna MD [address] [place] [address] Hematology/Oncology 02/27/23 Debi Kaplan, RN [address] [place] [address] Specialty Glueline Worker Hematology/Oncology 08/21/23 Heel Stainer Relationship Specialty Start Date End Date Dima Serna MD [address] [place] [address] Hematology/Oncology 02/27/23 Debi Kaplan, RN [address] [place] [address] Specialty Glueline Worker Hematology/Oncology 08/21/23 Inactive Administered Medications - up [...] dose, On Thu09/02/23 at 0800, Medication Substitution: [facility] preferred product has been replaced with the insurance mandated product Given 09/02/2023 8:02 AM EST 8 mg Inactive Administered Medications - up to 3 most recent administrations Medication Order MAR Action Action Date Dose Rate Site pegfilgrastim 6 mg injection (NEULASTA) 6 mg, SUBCUTANEOUS, ONCE, 1 dose, On Agnes 09/03/23 at 1430 Given 09/03/2023 2:40 PM EST 6 mg Arm, Right Inactive Administered Medications - up to 3 most recent administrations Medication Order MAR Action Action Date Dose Rate Site acetaminophen 650 mg tab(s) (TYLENOL) 650 mg, ORAL, ONCE, 1 dose, On Thu09/29/23 at 0930, Give 30 minutes prior to infusion. No more than 4000 mg of acetaminophen should be given per day (FROM ALL SOURCES), If ordered PRN for pain, patient/guardian may elect to receive this medication for higher pain levels INSTEAD of the opioid, if preferred: N/A Given 09/29/2023 9:37 AM EDT 650 mg bendamustine 200 mg in NaCl 0.9% 548 mL 200 mg (rounded from 201.6 mg = 90 mg/m2 2.24 m2 Treatment Plan BSA from Recorded weight), INTRAVENOUS, Administer over 30 Minutes, ONCE, 1 dose, On Thu09/29/23 at 0930, exp 0940 09/30/23 (refrigerated) Hazardous Chemotherapy Drug: Use appropriate PPE. Antineoplastic Irritant. Refrigerate. New Bag/Syringe/Bottle 09/29/2023 10:08 AM EDT 200 mg dexAMETHasone 20 mg in NaCl 0.9% 50 mL (DECADRON) 20 mg, INTRAVENOUS, Administer over 15 Minutes, ONCE, 1 dose, On Thu09/29/23 at 0930, Administer 30 minutes prior to infusion. Refrigerate. New Bag/Syringe/Bottle 09/29/2023 9:46 AM EDT 20 mg diphenhydrAMINE 50 mg injection (BENADRYL) 50 mg, INTRAVENOUS, NEEDED, 1 dose, Starting on Thu09/29/23 at 0905, Until Thu09/29/23 at 1212, Administer per hypersensitivity/anaphylaxis grading in nursing communication Given 09/29/2023 12:12 PM EDT 25 mg diphenhydrAMINE 50 mg injection (BENADRYL) 50 mg, INTRAVENOUS, ONCE, 1 dose, On Thu09/29/23 at 0930, Give prior to infusion. Given 09/29/2023 9:41 AM EDT 50 mg famotidine 20 mg injection (PEPCID) 20 mg, INTRAVENOUS, ONCE, 1 dose, On Thu09/29/23 at 0930, REFRIGERATE Given 09/29/2023 9:42 AM EDT 20 mg hydrocortisone sodium succinate (PF) 100 mg injection (Solu-CORTEF) 100 mg, INTRAVENOUS, ONCE, 1 dose, On Thu09/29/23 at 0930 Given 09/29/2023 9:44 AM EDT 100 mg hydrocortisone sodium succinate (PF) 100 mg injection (Solu-CORTEF) 100 mg, INTRAVENOUS, NEEDED, 1 dose, Starting on Thu09/29/23 at 0905, Until Thu09/29/23 at 1213, Administer per hypersensitivity/anaphylaxis grading in nursing communication Given 09/29/2023 12:13 PM EDT 100 mg meperidine (PF) 25 mg injection (DEMEROL) 25 mg, INTRAVENOUS, NEEDED, 2 doses, Starting on Thu09/29/23 at 1213, Until Thu09/29/23 at 1906, Rigors, For rigors due to hypersensitivity reaction. Stop Infusion. Notify Physician. Consult Physician to determine if the medication may be resumed. Given 09/29/2023 12:15 PM EDT 25 mg OBINUTUZumab 100 mg in NaCl 0.9% 100 mL iv piggyback (GAZYVA) 100 mg, INTRAVENOUS, ONCE, 1 dose, On Thu09/29/23 at 0930, Total Volume = 100 mL Dose 1 = Start infusion at 6 mg/hr. Infusion rate may be doubled every hour to a max rate of 24 mg/hr in the absence of infusion toxicity. REFRIGERATE Restarted 09/29/2023 1:00 PM EDT (unrecognized sect ion and content) No Status [...] BE BASED ON THE PRIMARY CLINICAL RECORDS. [facility]. provides no warranty or guarantee of the accuracy or completeness of information in this document.
[2023-10-01] MEDS: 0.9% NaCl VAD Flush IV (08:27)
[2023-10-01] MEDS: DiphenhydrAMINE 50 MG/ML Syringe 25 MG IV (08:27)
[2023-10-01] MEDS: 0.9% Normal Saline (500mL Bag) 500 ML 15 ML IV (08:27)
[2023-10-01] MEDS: Acetaminophen 325 MG Tablet 650 MG PO (08:28)
[2023-10-01 09:08] VITALS: BP 118/67; PULSE 68; RESP 16; TEMP 35.9; O2SAT 99
[2023-10-01 10:08] VITALS: BP 120/72; PULSE 64; RESP 16; TEMP 36.1
[2023-10-01 11:21] VITALS: BP 131/74; PULSE 60; RESP 16; TEMP 36.2; O2SAT 99
[2023-10-01 12:21] VITALS: BP 125/82; PULSE 71; RESP 16; TEMP 36.2
[2023-10-01 13:00] VITALS: BP 122/78; PULSE 64; RESP 16; TEMP 36.2; O2SAT 99
== END 2023-10-01 07:59 | disposition home or self-care (01) ==
LOC: MEDOUTP 07:58
PROVIDERS: PCP Internal Medicine; Referring Provider Specialist; Visit Provider Specialist
DX: D64.81 Anemia due to antineoplastic chemotherapy (principal)
CPT/HCPCS: 36430; 86850; 86900; 86901; 86920; 86922; J7040; P9016; A4216

== ENCOUNTER 2023-10-02 15:09 | Inpatient (IN) | payer OTHER, SELFPAY ==
[2023-10-02] VITALS (40 sets, daily range): BP systolic 82–166; BP diastolic 43–115; PULSE 104–174; RESP 11–34; TEMP 36.8–38.3; O2SAT 91–98; BMI 29.2; BMI 29.4
--- NOTE | 2023-10-02 16:14 | RAD_ITS ---
INDICATION: cough EXAMINATION/TECHNIQUE: X-RAY - XR Chest 1 View COMPARISON: November 27, 2019 FINDINGS: LINES/DEVICES: None. LUNGS: No consolidation, edema or effusion. Mild interstitial prominence. No pneumothorax. MEDIASTINUM AND CARDIOVASCULAR STRUCTURES: Cardiac silhouette not enlarged. Central airways and mediastinal contour are unremarkable. BONES AND SOFT TISSUES: Unremarkable. RAD/Chest 1 View (Portable) IMPRESSION: Mild interstitial prominence. Electronically Signed: Palmer Melo DO at 17:52 EDT ,
--- NOTE | 2023-10-02 16:19 | EDS_ITS ---
HPI <KYLE Freire - Last Filed: 10/02/23 20:30> History of Present Illness Chief Complaint: Fever Narrative Narrative: Patient is a 58-year-old male with history of non-Hodgkin's lymphoma, patient is currently on chemotherapy last chemo was 2 days ago, patient received a injection to increase his white blood cells today, he had a 101 fever at the oncologist office, they referred him to the [facility]. Patient is also on antibiotics Keflex 250 mg for cellulitis of the left leg. He was recently admitted for atrial fibrillation. He is currently not on any anticoagulation medicine. Patient is febrile, tachycardic at a rate of 150. Patient denies any cough or congestion. Patient does have a fever here. He is tachycardic. Patient is alert and orient x 4. <Dr. Devan Springer MD - Last Filed: 10/02/23 20:41> History of Present Illness Detail of Chief Complaint: Fever, cellulitis on chemo Informant: patient, spouse/S.O. and PCP Onset/Context/Timing Onset: Today Context: Sudden Onset Quality: Fever, red painful lesion anterior lateral proximal left leg Location: Left leg Current Severity: Mild Maximum Severity: Moderate (Palpation) Worsened by: Patient is immune suppressed. Relieved by: Nothing Associated Symptoms Associated Symptoms: Fever, chills Narrative Prior similar symptoms: Yes (Per ) Recent Illness/Hospitalization: Yes (E. coli bacteremia/sepsis) [facility] <KYLE Freire - Last Filed: 10/02/23 20:30> [facility] Medical History Anemia Chronic kidney disease (CKD) Contact with and (suspected) exposure to other viral communicable diseases Hypersplenism Hypertension Near syncope (09/2019) Non Hodgkin's lymphoma Obesity Pancytopenia Pancytopenia Paroxysmal supraventricular tachycardia (11/27/19) Thrombocytopenia Tobacco abuse counseling Home Medications acyclovir 400 mg tablet 400 mg PO DAILY cold sore 09/14/23 [History Last Taken 09/14/23] metoprolol succinate 100 mg tablet,extended release 24 hr 100 mg PO DAILY 1 month #30 tabs 09/21/23 [Rx Last Taken Unknown] cephalexin 250 mg capsule 250 mg PO 4X/DAY 10/02/23 [History Last Taken Unknown] diltiazem HCl 240 mg capsule,extended release 24 hr 240 mg PO Q24H 10/02/23 [History Last Taken Unknown] Allergy/AdvReac Type Severity Reaction Status Date / Time ibrutinib [From Imbruvica] Allergy dyspnea/diz Verified 10/02/23 15:14 zness rituximab Allergy Shortness Verified 10/02/23 15:14 of breath Surgical History History of bone marrow biopsy Social History (Updated 10/02/23 @ 16:[address] Devan Springer MD) household members: spouse Smoking Status: Former smoker ROS <KYLE Freire - Last Filed: 10/02/23 20:30> ROS ED ROS Narrative Constitutional: Negative for weight loss. Positive fever chills, weakness Eyes: Negative for vision loss, vision change, double vision ENT: Negative for any sore throat, ear pain, congestion Cardiovascular: Negative for any chest pain, tightness, palpitations Respiratory: Negative for any cough, sputum production, hemoptysis, dyspnea, dyspnea on exertion, orthopnea Gastrointestinal: Negative for any abdominal pain, nausea, vomiting, diarrhea, constipation, blood in stool, blood in vomit : Negative for any urinary frequency, dysuria, retention, blood in urine Muscle skeletal: Negative for any neck pain, back pain. Positive for left leg pain Neurological: Negative for any headache, syncope, dizziness Skin: Negative for any rashes, itching, abrasions, lacerations. Positive for wound to the left anterior lower leg Psychiatric: Negative for any depression, anxiety, stress, suicidal ideation, homicidal ideation Hematologic: Negative for any excessive bruising, easy bleeding EXAM <KYLE Freire - Last Filed: 10/02/23 20:30> Physical Exam Narrative Exam Narrative: Vital signs reviewed. Patient is febrile here, tachycardic with irregular rate at 160. Patient is alert and orient x 4. HEET: Head normocephalic atraumatic, TMs clear bilaterally. Posterior pharynx is clear, moist mucous membranes. Nares clear bilaterally. Neck: Supple with no lymphadenopathy or tenderness. No signs of meningismus. Cardiac: Tachycardic irregular rate no murmurs gallops or rubs, equal peripheral pulses bilaterally. Respiratory: Lungs clear to auscultation bilaterally. No chest tenderness. Abdomen: Soft, nontender, nondistended. No abdominal bruit or pulsatile masses. No hepatosplenomegaly Extremities: Patient's left lower extremity is more edematous than the right lower extremity. Patient does have a 4 cm x 5 cm circular/oval area of cell ulitis with a yellowish center. Neuro: Cranial nerves II through XII intact, no focal neurological deficits. Skin: Clean dry and intact with no rash, purpura, petechiae, vesicles or pustules. Backs/flank: No CVA tenderness, no midline spinal tenderness, no deformity. Psych: Normal mood and affect. No SI, HI or acute psychosis. Const Vital Signs: 10/02/23 15:10 10/02/23 16:03 10/02/23 16:03 Temperature 99.6 F H 100.9 F H Temperature Source Oral Temporal Pulse Rate 169 H 147 H Respiratory Rate 20 H 12 Respiratory Effort Normal Respiratory Pattern Normal Blood Pressure 125/80 H 127/82 H Blood Pressure Mean 95 97 Pulse Ox 98 95 Oxygen Delivery Method Room Air Room Air 10/02/23 16:14 10/02/23 17:00 10/02/23 16:23 Temperature 99.4 F H Temperature Source Oral Pulse Rate 143 H 172 H Respiratory Rate 13 23 H Respiratory Effort Respiratory Pattern Blood Pressure 137/82 H Blood Pressure Mean 100 Pulse Ox 97 95 Oxygen Delivery Method Room Air Room Air 10/02/23 16:30 10/02/23 16:34 10/02/23 16:40 Temperature Temperature Source Pulse Rate 146 H 143 H 153 H Respiratory Rate 14 17 18 Respiratory Effort Respiratory Pattern Blood Pressure 135/80 H Blood Pressure Mean 96 Pulse Ox Oxygen Delivery Method 10/02/23 16:45 10/02/23 16:50 10/02/23 17:00 Temperature Temperature Source Pulse Rate 143 H 146 H 159 H Respiratory Rate 13 13 15 Respiratory Effort Respiratory Pattern Blood Pressure 140/112 H 137/82 H Blood Pressure Mean 121 94 Pulse Ox Oxygen Delivery Method 10/02/23 17:10 10/02/23 17:15 10/02/23 17:20 Temperature Temperature Source Pulse Rate 147 H 166 H 131 H Respiratory Rate 16 15 19 H Respiratory Effort Respiratory Pattern Blood Pressure 92/72 Blood Pressure Mean 80 Pulse Ox 95 94 Oxygen Delivery Method 10/02/23 17:30 10/02/23 17:40 10/02/23 17:45 Temperature Temperature Source Pulse Rate 150 H 145 H 131 H Respiratory Rate 12 11 L 14 Respiratory Effort Respiratory Pattern Blood Pressure 93/52 L 100/64 Blood Pressure Mean 61 75 Pulse Ox 93 95 95 Oxygen Delivery Method 10/02/23 18:00 10/02/23 19:00 10/02/23 17:50 Temperature 99 F 98.3 F Temperature Source Oral Oral Pulse Rate 118 H 153 H 134 H Respiratory Rate 18 25 H 25 H Respiratory Effort Respiratory Pattern Blood Pressure 111/71 164/111 H Blood Pressure Mean 84 128 Pulse Ox 95 95 95 Oxygen Delivery Method Room Air Room Air 10/02/23 18:07 10/02/23 18:08 10/02/23 18:10 Temperature Temperature Source Pulse Rate 134 H 136 H 126 H Respiratory Rate 16 12 18 Respiratory Effort Respiratory Pattern Blood Pressure 111/71 Blood Pressure Mean 84 Pulse Ox 95 97 95 Oxygen Delivery Method 10/02/23 18:15 10/02/23 18:20 10/02/23 18:30 Temperature Temperature Source Pulse Rate 152 H 125 H 113 H Respiratory Rate 17 15 13 Respiratory Effort Respiratory Pattern Blood Pressure 103/75 134/73 H Blood Pressure Mean 84 90 Pulse Ox 94 96 96 Oxygen Delivery Method 10/02/23 18:40 10/02/23 18:45 10/02/23 18:50 Temperature Temperature Source Pulse Rate 146 H 155 H 173 H Respiratory Rate 23 H 25 H 34 H Respiratory Effort Respiratory Pattern Blood Pressure 156/109 H Blood Pressure Mean 122 Pulse Ox Oxygen Delivery Method 10/02/23 19:00 10/02/23 19:02 10/02/23 20:00 Temperature Temperature Source Pulse Rate 174 H 160 H 139 H Respiratory Rate 32 H 34 H 15 Respiratory Effort Respiratory Pattern Blood Pressure 166/115 H 164/111 H 111/89 H Blood Pressure Mean 130 123 96 Pulse Ox 98 95 94 Oxygen Delivery Method 10/02/23 20:00 10/02/23 20:37 Temperature 98.8 F 98.2 F Temperature Source Temporal Pulse Rate 143 H 131 H Respiratory Rate 17 15 Respiratory Effort Respiratory Pattern Blood Pressure 107/59 L 100/76 Blood Pressure Mean 75 84 Pulse Ox 97 94 Oxygen Delivery Method Room Air <Dr. Devan Springer MD - Last Filed: 10/02/23 20:41> Physical Exam Const Vital Signs: 10/02/23 15:10 10/02/23 16:03 10/02/23 16:03 Temperature 99.6 F H 100.9 F H Temperature Source Oral Temporal Pulse Rate 169 H 147 H Respiratory Rate 20 H 12 Respiratory Effort Normal Respiratory Pattern Normal Blood Pressure 125/80 H 127/82 H Blood Pressure Mean 95 97 Pulse Ox 98 95 Oxygen Delivery Method Room Air Room Air 10/02/23 16:14 10/02/23 17:00 10/02/23 16:23 Temperature 99.4 F H Temperature Source Oral Pulse Rate 143 H 172 H Respiratory Rate 13 23 H Respiratory Effort Respiratory Pattern Blood Pressure 137/82 H Blood Pressure Mean 100 Pulse Ox 97 95 Oxygen Delivery Method Room Air Room Air 10/02/23 16:30 10/02/23 16:34 10/02/23 16:40 Temperature Temperature Source Pulse Rate 146 H 143 H 153 H Respiratory Rate 14 17 18 Respiratory Effort Respiratory Pattern Blood Pressure 135/80 H Blood Pressure Mean 96 Pulse Ox Oxygen Delivery Method 10/02/23 16:45 10/02/23 16:50 10/02/23 17:00 Temperature Temperature Source Pulse Rate 143 H 146 H 159 H Respiratory Rate 13 13 15 Respiratory Effort Respiratory Pattern Blood Pressure 140/112 H 137/82 H Blood Pressure Mean 121 94 Pulse Ox Oxygen Delivery Method 10/02/23 17:10 10/02/23 17:15 10/02/23 17:20 Temperature Temperature Source Pulse Rate 147 H 166 H 131 H Respiratory Rate 16 15 19 H Respiratory Effort Respiratory Pattern Blood Pressure 92/72 Blood Pressure Mean 80 Pulse Ox 95 94 Oxygen Delivery Method 10/02/23 17:30 10/02/23 17:40 10/02/23 17:45 Temperature Temperature Source Pulse Rate 150 H 145 H 131 H Respiratory Rate 12 11 L 14 Respiratory Effort Respiratory Pattern Blood Pressure 93/52 L 100/64 Blood Pressure Mean 61 75 Pulse Ox 93 95 95 Oxygen Delivery Method 10/02/23 18:00 10/02/23 19:00 10/02/23 17:50 Temperature 99 F 98.3 F Temperature Source Oral Oral Pulse Rate 118 H 153 H 134 H Respiratory Rate 18 25 H 25 H Respiratory Effort Respiratory Pattern Blood Pressure 111/71 164/111 H Blood Pressure Mean 84 128 Pulse Ox 95 95 95 Oxygen Delivery Method Room Air Room Air 10/02/23 18:07 10/02/23 18:08 10/02/23 18:10 Temperature Temperature Source Pulse Rate 134 H 136 H 126 H Respiratory Rate 16 12 18 Respiratory Effort Respiratory Pattern Blood Pressure 111/71 Blood Pressure Mean 84 Pulse Ox 95 97 95 Oxygen Delivery Method 10/02/23 18:15 10/02/23 18:20 10/02/23 18:30 Temperature Temperature Source Pulse Rate 152 H 125 H 113 H Respiratory Rate 17 15 13 Respiratory Effort Respiratory Pattern Blood Pressure 103/75 134/73 H Blood Pressure Mean 84 90 Pulse Ox 94 96 96 Oxygen Delivery Method 10/02/23 18:40 10/02/23 18:45 10/02/23 18:50 Temperature Temperature Source Pulse Rate 146 H 155 H 173 H Respiratory Rate 23 H 25 H 34 H Respiratory Effort Respiratory Pattern Blood Pressure 156/109 H Blood Pressure Mean 122 Pulse Ox Oxygen Delivery Method 10/02/23 19:00 10/02/23 19:02 10/02/23 20:00 Temperature Temperature Source Pulse Rate 174 H 160 H 139 H Respiratory Rate 32 H 34 H 15 Respiratory Effort Respiratory Pattern Blood Pressure 166/115 H 164/111 H 111/89 H Blood Pressure Mean 130 123 96 Pulse Ox 98 95 94 Oxygen Delivery Method 10/02/23 20:00 10/02/23 20:37 Temperature 98.8 F 98.2 F Temperature Source Temporal Pulse Rate 143 H 131 H Respiratory Rate 17 15 Respiratory Effort Respiratory Pattern Blood Pressure 107/59 L 100/76 Blood Pressure Mean 75 84 Pulse Ox 97 94 Oxygen Delivery Method Room Air [facility] <KYLE Freire - Last Filed: 10/02/23 20:30> [facility] Lab Data Labs: Laboratory Results - last 24 hr 10/02/23 10/02/23 16:17 16:50 WBC 0.1 L* RBC 3.10 L Hgb 9.1 L Hct 27.4 L MCV 88.4 MCH 29.4 MCHC 33.2 RDW Std Deviation 50.0 H RDW Coeff of Екатерина 15.8 H Plt Count 23 L* MPV 9.6 Immature Gran % (Auto) 0.000 Neut % (Auto) 85.7 H Lymph % (Auto) 14.3 L Lagrange % (Auto) 0.0 Eos % (Auto) 0.0 Baso % (Auto) 0.0 Absolute Neuts (auto) 0.1 L Absolute Lymphs (auto) 0.01 L Nucleated RBC % 0 Differential Comment SEE COMMENTS Diff Path Review May foll Platelet Estimate MKD DEC RBC Morphology N CHROM Anisocytosis RARE Macrocytosis RARE Ovalocytes RARE PT 16.2 H INR 1.3 APTT 31.6 Sodium 136 Potassium 4.0 Chloride 103 Carbon Dioxide 27.0 Anion Gap 6 BUN 23 H Creatinine 1.12 Estim Creat Clear Calc 84.92 Est GFR (MDRD) Af Amer 86 Est GFR (MDRD) Non-Af 71 BUN/Creatinine Ratio 20.5 H Glucose 143 H Lactic Acid 1.8 Calcium 8.1 L Total Bilirubin 2.00 H AST 83 H ALT 120 H Alkaline Phosphatase 121 H Troponin I High Sens 10 Total Protein 7.3 Albumin 2.7 L Globulin 4.6 H Albumin/Globulin Ratio 0.6 L Urine Color Yellow Urine Clarity Sl. Cloudy Urine pH 5.0 Ur Specific Morrison 1.015 Urine Protein 100 H Urine Glucose (UA) Normal Urine Ketones 5 H Urine Occult Blood 25 H Urine Nitrite Positive H Urine Bilirubin 3 H Urine Urobilinogen 8 H Ur Leukocyte Esterase 25 H Urine RBC 0-5 SEEN Urine WBC 0-5 SEEN Ur Squamous Epith Cells 0 SEEN Urine Bacteria 2+ Urine Mucus 0 SEEN Radiography Diagnostic Testing: Clinical Impression(s) from Imaging Studies Chest X-Ray 10/02/23 16:14 IMPRESSION: Mild interstitial prominence. Electronically Signed: Palmer Melo DO at 17:52 EDT , Lower Extremity CT 10/02/23 16:36 IMPRESSION: There is subcutaneous edema of the left lower leg anterolaterally with a thick wall collection noted likely representing an abscess . Electronically Signed: Palmer Melo DO at 18:58 EDT , EKG Atrial fibrillation: Attestation: I personally reviewed and interpreted this EKG as follows: Comments: Atrial fibrillation, rapid ventricular response, rate of 146 bpm, QRS duration 76 ms, no acute ST elevation, no acute infarct noted Treatment and Re-Evaluation :: Differential diagnosis includes however is not limited to: Neutropenia, septicemia, necrotizing fasciitis of left leg, cellulitis of left leg, abscess formation, UTI, COVID-19, influenza, community-acquired pneumonia Patient arrives in no respiratory distress, patient is febrile, tachycardic with atrial fibrillation with RVR. Patient is currently receiving chemotherapy last time 2 days ago, patient does receive an injection today to elevate his white blood count. Patient will need a full septic workup. Patient was started on bank, Zosyn, secondary to the significant wound to the left mid leg, the patient was on clindamycin first. Patient received a CT scan of the left leg to rule out any necrotizing fasciitis, abscess, free air.Patient's chest x-ray interpreted by the ER physician shows mild interstitial prominence. No acute infiltrate. COVID-19, influenza was negative. Patient's urinalysis showed 2+ bacteria, positive nitrites, 25 leukocytes patient does not have any urinary symptoms. Patient's laboratory values show a white blood count of 0.1, patient's platelet count is 23 which is chronic, patient's white blood count on September 21, 2023 was 3.1. Patient's neutrophils are 85.7 this is greatly elevated. Lactic acid normal 1.8. Troponin negative at 10. Patient be given 3 L normal saline, IV antibiotics started. Patient CT scan of the leg with the abscess shows that there is a subcutaneous edema left lower leg anterior laterally with a thick wall collection noted likely representing an abscess. This will need to be I&D. Patient's heart rate continues to be in the 150s, patient's left leg abscess was I&D by ER physician. Patient tolerated well. Patient blood pressure did decrease, patient is in septic shock. Patient received 30 cc/kg bolus. At this time, patient stable <Dr. Devan Springer MD - Last Filed: 10/02/23 20:41> [facility] Narrative Medical decision making narrative: I have personally performed a face to face assessment of the patient and have reviewed the JEREMIAH Note. I performed a substantive portion of the visit including all aspects of the following. My briones findings include: History is remarkable for recent admission for E. coli bacteremia/sepsis. He had 2 venous duplex studies which were negative for blood clot of the left leg. He has an area of redness that states was noted in August and present at time of discharge. Apparently Dr. Josue this week outlined the area of redness. The blister was not present yesterday. He has a blister which spontaneously ruptured. The area erythema is tender. He does endorse not feeling well, lightheadedness. Exam is remarkable for tachycardia, tachypnea, fever. He is not hypoxic or hypotensive. HEENT exam is remarkable dry mucosa. Patient is flushed. Heart is rapid and regular. There is no murmur, gallop or rub. Lungs are clear to auscultation. Abs benign. He does not have obvious inguinal lymphadenopathy on the left. The left lower extremity is discolored and swollen. There is an area of erythema that is 6 to 7 cm in diameter proximal anterior lateral left leg. Centrally the size of a silver dollar there is a blister that has ruptured. The area is boggy, warm and indurated. There is no lymphangitis. Medical Decision Making patient meets sepsis criteria. Prophy antibiotics were initially ordered. Clindamycin was added because there is concern for necrotizing fasciitis. Antibiotics initially ordered per sepsis workup order set. As mentioned because of concern for necrotizing fasciitis clindamycin was added. Other additions or changes: 1. I&D of left anterior leg abscess documented under procedure note 2. Consultation with hospitalist and stave grader 3. Dr. Josue his oncologist was paged to make him aware. Lab Data Attestation: I reviewed the patient's lab results. Lab results narrative: Patient has been neutropenic and thrombocytopenic in the past. His white count presently is 100 with an absolute neutrophil count of 85. He is more anemic than prior labs with an H&H of 9.1 and 27.4. Electrolyte panel is unremarkable. Glucose is 143 with normal CO2 anion gap. Lactate is normal at 1.8. Total bilirubin is elevated 2.0. AST and ALT are elevated 83 and 120 respectively. Alkaline phosphatase elevated 121. Urinalysis reveals's of gravity 1.015. Macro is positive for ketones, blood, nitrites bilirubin, urobilinogen and leukoesterase. Microscopic reveals 0-5 RBCs and 0-5 WBCs with 2+ bacteria. Will treat since he is neutropenic with fever. Labs: Laboratory Results - last 24 hr 10/02/23 10/02/23 16:17 16:50 WBC 0.1 L* RBC 3.10 L Hgb 9.1 L Hct 27.4 L MCV 88.4 MCH 29.4 MCHC 33.2 RDW Std Deviation 50.0 H RDW Coeff of Екатерина 15.8 H Plt Count 23 L* MPV 9.6 Immature Gran % (Auto) 0.000 Neut % (Auto) 85.7 H Lymph % (Auto) 14.3 L Lagrange % (Auto) 0.0 Eos % (Auto) 0.0 Baso % (Auto) 0.0 Absolute Neuts (auto) 0.1 L Absolute Lymphs (auto) 0.01 L Nucleated RBC % 0 Differential Comment SEE COMMENTS Diff Path Review May foll Platelet Estimate MKD DEC RBC Morphology N CHROM Anisocytosis RARE Macrocytosis RARE Ovalocytes RARE PT 16.2 H INR 1.3 APTT 31.6 Sodium 136 Potassium 4.0 Chloride 103 Carbon Dioxide 27.0 Anion Gap 6 BUN 23 H Creatinine 1.12 Estim Creat Clear Calc 84.92 Est GFR (MDRD) Af Amer 86 Est GFR (MDRD) Non-Af 71 BUN/Creatinine Ratio 20.5 H Glucose 143 H Lactic Acid 1.8 Calcium 8.1 L Total Bilirubin 2.00 H AST 83 H ALT 120 H Alkaline Phosphatase 121 H Troponin I High Sens 10 Total Protein 7.3 Albumin 2.7 L Globulin 4.6 H Albumin/Globulin Ratio 0.6 L Urine Color Yellow Urine Clarity Sl. Cloudy Urine pH 5.0 Ur Specific Morrison 1.015 Urine Protein 100 H Urine Glucose (UA) Normal Urine Ketones 5 H Urine Occult Blood 25 H Urine Nitrite Positive H Urine Bilirubin 3 H Urine Urobilinogen 8 H Ur Leukocyte Esterase 25 H Urine RBC 0-5 SEEN Urine WBC 0-5 SEEN Ur Squamous Epith Cells 0 SEEN Urine Bacteria 2+ Urine Mucus 0 SEEN Radiography Diagnostic Testing: Clinical Impression(s) from Imaging Studies Chest X-Ray 10/02/23 16:14 IMPRESSION: Mild interstitial prominence. Electronically Signed: Palmer Melo DO at 17:52 EDT Reading Location ID and State: [facility] / [place] Tel [phone], Service support , Lower Extremity CT 10/02/23 16:36 IMPRESSION: There is subcutaneous edema of the left lower leg anterolaterally with a thick wall collection noted likely representing an abscess . Electronically Signed: Palmer Melo DO at 18:58 EDT Reading Location ID and State: [facility] / [place] Tel [phone], Service support , Management Discussion w/another healthcare provider: Hospitalist (Dr. Gutierrez was made aware of the patient's.) Procedures <Dr. Devan Springer MD - Last Filed: 10/02/23 20:41> Other Procedures Procedure(s): Verbal consent was obtained for I&D of left anterior leg abscess. He was explained risk benefits. He and his understood. Patient was prepped draped sterile manner. Area was anesthetized by local infiltration and field block. Incision was made with 10 blade. 3 cm incision was made. There was purulent material noted. Blunt dissection was undertaken. The cavity was irrigated with 200 cc of normal saline. 1 inch Nu Gauze wick was placed to facilitate further drainage and prevent the wound from closing. Prior to starting procedure patient blood pressure was noted to be 82 systolic with a mean arterial 54. Verbal order was given to nurse since I was gowned for 30 cc/kg bolus. Will call hospitalist for admission to ICU <KYLE Freire - Last Filed: 10/02/23 20:30> Critical Care Time Critical Care Time: Yes Critical care time (excluding procedures): 30-74 minutes <Dr. Devan Springer MD - Last Filed: 10/02/23 20:41> Critical Care Time Critical care time (excluding procedures): 30-74 minutes (32 minutes), Including time spent: (History, physical, documentation, discussion with hospitalist and conciliation court judge), Discussing w/Patient &/or Family/Dietitian Teaching, Discussing w/Consultants and Arranging Admission or Transfer Discharge Plan Dx/Rx/DC Orders Clinical Impression: Non-Hodgkin's lymphoma, Abscess of left leg, Cellulitis, Atrial fibrillation with rapid ventricular response, Leukopenia, Thrombocytopenia, Neutropenia, Acute hypotension, Severe sepsis with acute organ dysfunction, Thrombocytopenia due to drugs Disposition Disposition: [facility]
[2023-10-02] MEDS: 0.9% Normal Saline (1000mL) 1,000 ML 999 ML IV (16:27)
[2023-10-02] MEDS: Acetaminophen 500 MG Tablet 1000 MG PO (16:28)
[2023-10-02 16:34] LABS: Absolute Lymphocyte Count 0.01 X10^3/uL (0.83-4.51); Absolute Neutrophil Count 0.1 X10^3/uL (2.0-7.7); Hematocrit 27.4 % (40-54); Hemoglobin 9.1 g/dL (13.0-16.5); Lymphocyte # 0.01 X10^3/ul (0.83-4.51); Lymphocyte % 14.3 % (19-41); Mean Corp Hgb Conc 33.2 g/dL (32-36); Mean Corpuscular Hgb 29.4 pg (27.0-32.0); Mean Corpuscular Volume 88.4 fL (80-94); Mean Platelet Vol. 9.6 fl (6.2-12.0); NRBC Flagged by Analyzer 0 % (0-5); Neutrophil # 0.06 X10^3/uL (2.7-7.7); Neutrophil % 85.7 % (47-70); POSITIVE COUNT YES; POSITIVE DIFFERENTIAL YES; POSITIVE MORPHOLOGY YES; RBC Distribution Width CV 15.8 % (11.6-14.6)
--- NOTE | 2023-10-02 16:36 | CT_ITS ---
CT LEFT LOWER EXTREMITY WITH 3-D IMAGING CLINICAL INDICATION: wound TECHNIQUE: Axial CT images of the LEFT lower extremity was performed IV contrast material. Coronal and sagittal reformats were provided. RADIATION DOSAGE (If Supplied By Facility): CTDIvol = ( 15.35 ) mGy, DLP = ( 929.43 ) mGycm COMPARISON: FINDINGS: Bones: Osseous structures are normal without evidence of fracture or dislocation. No lytic or blastic osseous masses. Mild effusion at the knee. Soft Tissues: There is subcutaneous edema of the left lower leg anterolaterally with a thick wall collection noted measuring 1.8 x 2.4 x 6.4 cm likely representing an abscess . CT/Extremity Lower WITH Contrast IMPRESSION: There is subcutaneous edema of the left lower leg anterolaterally with a thick wall collection noted likely representing an abscess . Electronically Signed: Palmer Melo DO at 18:58 EDT Reading Location ID and State: [facility] / [place] Tel [phone], Service support ,
[2023-10-02] MEDS: Clindamycin 900 MG/50 ML BAG 75 MG IV (16:45)
[2023-10-02 17:01] LABS: Lactic Acid 1.8 mmol/L (0.4-1.9)
[2023-10-02 17:03] LABS: ALB/GLOB Ratio 0.6 RATIO (0.9-2.4); AST(SGOT) 83 U/L (15-37); Alanine Aminotransfer ALT/SGPT 120 U/L (16-61); Albumin, Serum 2.7 g/dL (3.2-5.0); Alkaline Phosphatase 121 U/L (45-117); Anion Gap 6 (5-15); BUN 23 mg/dL (7-18); BUN/Creat Ratio 20.5 RATIO (10-20); Calcium,Total 8.1 mg/dL (8.5-10.1); Chloride 103 mmol/L (98-107); Creatinine, Serum 1.12 mg/dL (0.70-1.30); EST Glomerular Filtration Rate 71 mL/min (>60); Est Glom Filt Rate - Afr Amer 86 mL/min (>60); Estimated Creatinine Clearance 84.92 ml/min; Globulin 4.6 g/dL (2.2-4.2); Glucose 143 mg/dL (74-106); Protein, Total 7.3 g/dL (6.4-8.2); Sodium Level 136 mmol/L (136-145); Troponin-I HS 10 pg/mL (3.0-78.0)
[2023-10-02] MEDS: Cefazolin 2 GM in 0.9% Normal Saline (100mL Bag) 100 ML IV (17:03)
[2023-10-02 17:04] LABS: Mucous, Urine 0 SEEN /hpf (<or=2+); Squamous Epithelial Cells - UA 0 SEEN /hpf (0-5)
[2023-10-02 17:08] LABS: International Normalized Ratio 1.3; Prothrombin Time (Protime)PT. 16.2 SECONDS (11.7-14.9)
[2023-10-02] MEDS: Vancomycin HCl 2,000 MG in 0.9% Normal Saline (500mL Bag) 500 ML 250 MG IV (17:08)
[2023-10-02 17:09] LABS: Partial Thromboplast Time 31.6 Seconds (24.1-36.2)
[2023-10-02 17:10] LABS: Color, Urine Yellow (Yellow); Glucose, Dipstick Normal (Normal); Ketone-Dipstick 5 mg/dl (Negative); Leukocyte Esterase-Dipstick 25 /ul (Negative); Nitrite-Dipstick Positive (Negative); Occult Blood-Urine 25 /ul (Negative); Protein-Dipstick 100 mg/dl (Negative); Specific Gravity, Urine 1.015 (1.002-1.030); Urine Clarity Sl. Cloudy (Clear); Urine Urobilinogen 8 mg/dl (Normal)
[2023-10-02 17:23] LABS: Platelet Count 23 K/mm3 (150-450); White Blood Count 0.1 K/mm3 (4.4-11.0)
[2023-10-02 17:24] LABS: Differential Indicated SCAN CRITERIA MET
[2023-10-02 17:28] LABS: Anisocytosis RARE; Differential Comment SEE COMMENTS; Macrocytosis RARE; Ovalocyte RARE; Platelet Estimate MKD DEC (ADEQ); Red Cell Morphology N CHROM NORMAL (NORM C&C)
[2023-10-02 17:29] LABS: Urine Bilirubin Dipstick 3 mg/dL (Negative)
[2023-10-02 17:32] LABS: Bacteria 2+ /hpf (None Seen); Red Blood Cells-Urine 0-5 SEEN /hpf (0-5); White Blood Cells 0-5 SEEN /hpf (0-5)
[2023-10-02] MEDS: Digoxin 250 MCG/ML Ampul 500 MCG IV (17:34)
[2023-10-02] MEDS: 0.9% Normal Saline (1000mL) 1,000 ML 1000 ML IV (18:09)
--- NOTE | 2023-10-02 20:07 | PCM.HP.STD ---
[facility] - General General Date of Admission: 10/02/23 Date of Service: 10/02/23 Chief Complaint: Fever with Left Leg Redness and Swelling. [facility] Narrative DOMI ENAMORADO, is a 58 M with a past medical history of essential hypertension, overweight; with BMI of 29.2 this admission, tobacco abuse, history of atrial fibrillation, CKD; stage II-III, chronic anemia, history of sepsis and Non-Hodgkin's Lymphoma; on chemotherapy followed by Dr. Josue of oncology with last chemo 2 days ago who presents to [facility] ER complaining of fever with Left leg redness and swelling. Mr. Enamorado reports his symptoms began three weeks ago when he first developed a minor infection over the lateral aspect of his Left calf that progressively worsened since that time and then earlier today after he went to see his oncologist and had an injection of granulocyte CSF when he was noted to have a fever of 101 degrees Fahrenheit in the office with patient then started on oral Keflex for presumed cellulitis of the LLE. Unfortunately, he continued to worsen in spite of this treatment with persistent fever and tachycardia @ ~150 bpm with increasing pain and redness of his LLE with swelling over the area consistent with an abscess so he decided to come in for further evaluation and treatment. In the ER he was diagnosed with Sepsis due to Neutropenic Fever with critical leukopenia of 0.1 and critical thrombocytopenia of 23 present on admission with an abscess of the Left LE that was I&D'd by the ER provider due to suspected Adverse Drug Reaction to Chemotherapy used to treat Non-Hodgkin's Lymphoma and he was then admitted to the ICU for ongoing care for a stay that is expected to be greater than 48 hours. [facility] Medical History (Updated 10/03/23 @ 04:[address] Morgan Blunt, ) Anemia Chronic kidney disease (CKD) Contact with and (suspected) exposure to other viral communicable diseases Hypersplenism Hypertension Near syncope (09/2019) Neutropenic fever Non Hodgkin's lymphoma Obesity Pancytopenia Pancytopenia Paroxysmal supraventricular tachycardia (11/27/19) Thrombocytopenia Tobacco abuse counseling Home Medications acyclovir 400 mg tablet 400 mg PO DAILY cold sore 09/14/23 [History Last Taken 09/14/23] metoprolol succinate 100 mg tablet,extended release 24 hr 100 mg PO DAILY 1 month #30 tabs 09/21/23 [Rx Last Taken Unknown] cephalexin 250 mg capsule 250 mg PO 4X/DAY 10/02/23 [History Last Taken Unknown] diltiazem HCl 240 mg capsule,extended release 24 hr 240 mg PO Q24H 10/02/23 [History Last Taken Unknown] Allergy/AdvReac Type Severity Reaction Status Date / Time ibrutinib [From [facility]] Allergy dyspnea/diz Verified 10/02/23 15:14 zness rituximab Allergy Shortness Verified 10/02/23 15:14 of breath Surgical History History of bone marrow biopsy Social History household members: spouse Smoking Status: Former smoker ROS ROS Narrative Review of systems: General: Did have fever HENT: Denies headache, denies stuffy nose, denies sore throat EYES: Denies changes in vision Resp: Denies cough, denies shortness of breath Cardiac: Denies chest pain GI: Denies abdominal pain, denies changes in bowel, had some nausea : Denies changes in urination Extremity: Denies swelling Musculoskeletal: Feels somewhat generally weak and unwell Neuro: Denies any numbness/tingling Heme: Denies any bleeding or bruising Skin: Denies rashes Psychiatric: No complaints voiced Endocrine: No polyuria The rest of the 14 point ROS was negative except for positives in HPI. Vital Signs Vital Signs Vital Signs: 10/02/23 15:10 10/02/23 16:03 10/02/23 16:03 Temperature 99.6 F H 100.9 F H Temperature Source Oral Temporal Pulse Rate 169 H 147 H Respiratory Rate 20 H 12 Respiratory Effort Normal Respiratory Pattern Normal Blood Pressure 125/80 H 127/82 H Blood Pressure Mean 95 97 Pulse Ox 98 95 Oxygen Delivery Method Room Air Room Air 10/02/23 16:14 10/02/23 17:00 10/02/23 16:23 Temperature 99.4 F H Temperature Source Oral Pulse Rate 143 H 172 H Respiratory Rate 13 23 H Respiratory Effort Respiratory Pattern Blood Pressure 137/82 H Blood Pressure Mean 100 Pulse Ox 97 95 Oxygen Delivery Method Room Air Room Air 10/02/23 16:30 10/02/23 16:34 03/15/24 16:40 Temperature Temperature Source Pulse Rate 146 H 143 H 153 H Respiratory Rate 14 17 18 Respiratory Effort Respiratory Pattern Blood Pressure 135/80 H Blood Pressure Mean 96 Pulse Ox Oxygen Delivery Method 10/02/23 16:45 10/02/23 16:50 10/02/23 17:00 Temperature Temperature Source Pulse Rate 143 H 146 H 159 H Respiratory Rate 13 13 15 Respiratory Effort Respiratory Pattern Blood Pressure 140/112 H 137/82 H Blood Pressure Mean 121 94 Pulse Ox Oxygen Delivery Method 10/02/23 17:10 10/02/23 17:15 10/02/23 17:20 Temperature Temperature Source Pulse Rate 147 H 166 H 131 H Respiratory Rate 16 15 19 H Respiratory Effort Respiratory Pattern Blood Pressure 92/72 Blood Pressure Mean 80 Pulse Ox 95 94 Oxygen Delivery Method 10/02/23 17:30 10/02/23 17:40 10/02/23 17:45 Temperature Temperature Source Pulse Rate 150 H 145 H 131 H Respiratory Rate 12 11 L 14 Respiratory Effort Respiratory Pattern Blood Pressure 93/52 L 100/64 Blood Pressure Mean 61 75 Pulse Ox 93 95 95 Oxygen Delivery Method 10/02/23 18:00 10/02/23 19:00 10/02/23 17:50 Temperature 99 F 98.3 F Temperature Source Oral Oral Pulse Rate 118 H 153 H 134 H Respiratory Rate 18 25 H 25 H Respiratory Effort Respiratory Pattern Blood Pressure 111/71 164/111 H Blood Pressure Mean 84 128 Pulse Ox 95 95 95 Oxygen Delivery Method Room Air Room Air 10/02/23 18:07 10/02/23 18:08 10/02/23 18:10 Temperature Temperature Source Pulse Rate 134 H 136 H 126 H Respiratory Rate 16 12 18 Respiratory Effort Respiratory Pattern Blood Pressure 111/71 Blood Pressure Mean 84 Pulse Ox 95 97 95 Oxygen Delivery Method 10/02/23 18:15 10/02/23 18:20 10/02/23 18:30 Temperature Temperature Source Pulse Rate 152 H 125 H 113 H Respiratory Rate 17 15 13 Respiratory Effort Respiratory Pattern Blood Pressure 103/75 134/73 H Blood Pressure Mean 84 90 Pulse Ox 94 96 96 Oxygen Delivery Method 10/02/23 18:40 10/02/23 18:45 10/02/23 18:50 Temperature Temperature Source Pulse Rate 146 H 155 H 173 H Respiratory Rate 23 H 25 H 34 H Respiratory Effort Respiratory Pattern Blood Pressure 156/109 H Blood Pressure Mean 122 Pulse Ox Oxygen Delivery Method 10/02/23 19:00 10/02/23 19:02 Temperature Temperature Source Pulse Rate 174 H 160 H Respiratory Rate 32 H 34 H Respiratory Effort Respiratory Pattern Blood Pressure 166/115 H 164/111 H Blood Pressure Mean 130 123 Pulse Ox 98 95 Oxygen Delivery Method Weight Weight: 215 lb 2.738 oz Body Mass Index (BMI) 29.2 Physical Exam Const alert, oriented x3, no apparent distress and average body habitus General Appearance: cooperative HEENT normocephalic, head/scalp atraumatic and hearing grossly normal bilaterally Eyes PERRL and EOMs intact bilaterally Neck no lymphadenopathy and supple Resp normal respiratory effort, no retractions, no use of accessory muscles and clear to auscultation bilaterally Cardio regular rate and regular rhythm Cardio Narrative: Tachycardia noted GI normal to inspection, nondistended, normoactive bowel sounds, soft to palpation, non-tender and non-distended Extremity Extremity Narrative: Patient has evidence of recent I&D over his left lateral calf with blood-soaked gauze noted but no signs of vascular compromise. Skin Skin Narrative: Patient has evidence of recent I&D over his left lateral calf with blood-soaked gauze noted but no signs of vascular compromise. Neuro oriented x3, CN's II-XII intact bilaterally, moves all extremities and no focal motor deficits Sensorium / Orientation: awake, alert, oriented to person, oriented to place and oriented to time Speech: speech normal Motor Exam: strength 5/5 throughout Psych affect normal Results Medical Records Data Attestation: I reviewed the patient's medical records Lab / Micro Data Attestation: I reviewed the patient's lab results. 10/03/23 03:26 10/03/23 03:26 Labs: Laboratory Results - last 24 hr 10/02/23 16:17: WBC 0.1 L*, RBC 3.10 L, Hgb 9.1 L, Hct 27.4 L, MCV 88.4, MCH 29.4, MCHC 33.2, RDW Std Deviation 50.0 H, RDW Coeff of Екатерина 15.8 H, Plt Count 23 L*, MPV 9.6, Immature Gran % (Auto) 0.000, Neut % (Auto) 85.7 H, Lymph % (Auto) 14.3 L, [place] % (Auto) 0.0, Eos % (Auto) 0.0, Baso % (Auto) 0.0, Absolute Neuts (auto) 0.1 L, Absolute Lymphs (auto) 0.01 L, Nucleated RBC % 0, Differential Comment SEE COMMENTS, Diff Path Review May foll, Platelet Estimate MKD DEC, RBC Morphology N CHROM, Anisocytosis RARE, Macrocytosis RARE, Ovalocytes RARE, PT 16.2 H, INR 1.3, APTT 31.6, Sodium 136, Potassium 4.0, Chloride 103, Carbon Dioxide 27.0, Anion Gap 6, BUN 23 H, Creatinine 1.12, Estim Creat Clear Calc 84.92, Est GFR (MDRD) Af Amer 86, Est GFR (MDRD) Non-Af 71, BUN/Creatinine Ratio 20.5 H, Glucose 143 H, Lactic Acid 1.8, Calcium 8.1 L, Total Bilirubin 2.00 H, AST 83 H, ALT 120 H, Alkaline Phosphatase 121 H, Troponin I High Sens 10, Total Protein 7.3, Albumin 2.7 L, Globulin 4.6 H, Albumin/Globulin Ratio 0.6 L 10/02/23 16:50: Urine Color Yellow, Urine Clarity Sl. Cloudy, Urine pH 5.0, Ur Specific [place] 1.015, Urine Protein 100 H, Urine Glucose (UA) Normal, Urine Ketones 5 H, Urine Occult Blood 25 H, Urine Nitrite Positive H, Urine Bilirubin 3 H, Urine Urobilinogen 8 H, Ur Leukocyte Esterase 25 H, Urine RBC 0-5 SEEN, Urine WBC 0-5 SEEN, Ur Squamous Epith Cells 0 SEEN, Urine Bacteria 2+, Urine Mucus 0 SEEN Micro: Microbiology 10/02/23 16:43 Mucosa - Nose SARS-CoV-2, Influenza & RSV (PCR) - Final Imaging Radiology Impression Chest X-Ray 10/02/23 16:14 IMPRESSION: Mild interstitial prominence. Electronically Signed: Palmer Melo DO at 17:52 EDT , Lower Extremity CT 10/02/23 16:36 IMPRESSION: There is subcutaneous edema of the left lower leg anterolaterally with a thick wall collection noted likely representing an abscess . Electronically Signed: Palmer Melo DO at 18:58 EDT , Assessment & Plan Assessment/Plan (1) Sepsis: QUALIFIERS: Sepsis type: sepsis due to unspecified organism Sepsis acute organ dysfunction status: without acute organ dysfunction Qualified Code(s): A41.9 - Sepsis, unspecified organism (2) Neutropenic fever: (3) Cellulitis and abscess of left lower extremity: (4) Adverse drug reaction: QUALIFIERS: Encounter type: initial encounter Qualified Code(s): T50.905A - Adverse effect of unspecified drugs, medicaments and biological substances, initial encounter PLAN: Plan 1. Sepsis due to LLE Abscess and LLE Cellulitis with Neutropenic Fever and critical leukopenia of 0.1 with critical thrombocytopenia of 23 present on admission - 2. Non-Hodgkin's Lymphoma; with adverse Drug Reaction to chemotherapy followed by Dr. Josue of oncology with last chemo 2 days ago and recent diagnosis of LLE Cellulitis complicating #1 - 3. Essential hypertension - Hold scheduled antihypertensives until infection outlined above is neutralized. 4. Overweight; with BMI of 29.2 this admission - Weight loss will be recommended. 5. Tobacco abuse - Tobacco cessation will be strongly encouraged. 6. History of atrial fibrillation - Noted. 7. CKD; stage II-III - Stable. Check daily labs to ensure continued stability. 8. Chronic anemia - Stable with hemoglobin of 9.1 g/dL present on admission. Check daily CBC to ensure continued stability. 9. History of sepsis - Noted. 10. DVT prophylaxis - Heparin, heparinoids and SCD are all relatively contraindicated in this patient with critical thrombocytopenia of 23 present on admission. Total time: Approximately 75 minutes. Sepsis Attestation Sepsis Alert: Yes Sepsis Attestation: Agree w/Sepsis Date exam was performed: 10/02/23 Time exam was performed: 21:00 Possible Source of Sepsis: Skin/soft tissue Sepsis Organ Dysfunction Criteria Present: Platelets <100,000 / uL Fluid Resuscitation Fluid resuscitation indicated?: Yes Fluid Resuscitation ordered: 30 ml/kg fluid bolus ordered Amount of fluid ordered: 3 Sepsis Note Date exam was performed: 10/03/23 Time exam was performed: 01:00 Sepsis Attestation: Sepsis re-evaluation was performed Response to fluids: Fluid responsive hypotension Charges/Coding Visit Charges Inpatient E&M: 85731 Init Hosp L3
[2023-10-02] MEDS: Lidocaine 1% /Epi 1:100 (20ml) 20 ML Vial INFILT (20:32)
[2023-10-02] MEDS: VIAFLEX IV ×3 (20:33→23:03)
[2023-10-02] MEDS: fentaNYL 100 MCG/2 ML Ampul 50 MCG IV (20:33)
[2023-10-02] MEDS: NORMAL SALINE IV ×3 (20:33→23:03)
[2023-10-02] MEDS: Cefepime HCl 2 GM in 0.9% Normal Saline (100mL MB+) 100 ML IV (22:38)
[2023-10-02 22:59] LABS: CPK Total, Creatine Kinase 34 U/L (39-308)
[2023-10-02 23:01] LABS: Lactic Acid 1.3 mmol/L (0.4-1.9)
--- NOTE | 2023-10-02 23:03 | PCM.RX.CS ---
Consult Antibiotic Management Pharmacy has been consulted to manage selected antibiotic: Vancomycin Type of Intervention Type of Consult: New start Suspected Infection Suspected Infection: Sepsis Labs Labs: Sodium 136 mmol/L (136-145) 10/02/23 16:17 Potassium 4.0 mmol/L (3.5-5.1) 10/02/23 16:17 Chloride 103 mmol/L (98-107) 10/02/23 16:17 Carbon Dioxide 27.0 mmol/L (21.0-32.0) 10/02/23 16:17 Anion Gap 6 (5-15) 10/02/23 16:17 BUN 23 mg/dL (7-18) H 10/02/23 16:17 Creatinine 1.12 mg/dL (0.70-1.30) 10/02/23 16:17 Est GFR (MDRD) Af Amer 86 mL/min (>60) 10/02/23 16:17 Est GFR (MDRD) Non-Af 71 mL/min (>60) 10/02/23 16:17 BUN/Creatinine Ratio 20.5 RATIO (10-20) H 10/02/23 16:17 Glucose 143 mg/dL (74-106) H 10/02/23 16:17 Microbiology Microbiology: Microbiology 10/02/23 16:43 Mucosa - Nose SARS-CoV-2, Influenza & RSV (PCR) - Final Dosing Weight Weight used for dosin.5 kg Estimated Creatinine Clearance Estimated Creatinine Clearance: 85 Goal Trough Goal Trough: 15-20 mcg/mL Pharmacy Plan for Drug Dosing Pharmacy Plan for Drug Dosing: Pharmacy Service will continue to monitor and adjust dosing as required. Follow-Up Labs Follow-Up Labs: Trough: Vancomycin Date/Time Labs Ordered Labs to be done on [date and time ordered]: 10/04/23 @0430
[2023-10-02] MEDS: Morphine 2 MG/ML Syringe IV (23:26)
[2023-10-03] VITALS (27 sets, daily range): BP systolic 103–149; BP diastolic 7–111; PULSE 91–157; RESP 15–26; TEMP 36.8–38.7; O2SAT 92–100; BMI 29.9
[2023-10-03 03:38] LABS: Hematocrit 21.9 % (40-54); Hemoglobin 7.2 g/dL (13.0-16.5); Mean Corp Hgb Conc 32.9 g/dL (32-36); Mean Corpuscular Hgb 29.5 pg (27.0-32.0); Mean Corpuscular Volume 89.8 fL (80-94); Mean Platelet Vol. 9.9 fl (6.2-12.0); POSITIVE COUNT YES; POSITIVE DIFFERENTIAL YES; POSITIVE MORPHOLOGY YES; Platelet Count 19 K/mm3 (150-450); RBC Distribution Width CV 15.8 % (11.6-14.6); RBC Distribution Width SD 50.6 fl (35.1-43.9); Red Blood Count 2.44 M/mm3 (4.6-6.2); White Blood Count 0.1 K/mm3 (4.4-11.0)
[2023-10-03 03:53] LABS: Differential Indicated MANUAL DIFF
[2023-10-03 03:54] LABS: ALB/GLOB Ratio 0.6 RATIO (0.9-2.4); AST(SGOT) 38 U/L (15-37); Alanine Aminotransfer ALT/SGPT 76 U/L (16-61); Albumin, Serum 2.1 g/dL (3.2-5.0); Alkaline Phosphatase 88 U/L (45-117); Anion Gap 5 (5-15); BUN 20 mg/dL (7-18); BUN/Creat Ratio 21.8 RATIO (10-20); Calcium,Total 7.2 mg/dL (8.5-10.1); Chloride 107 mmol/L (98-107); Creatinine, Serum 0.92 mg/dL (0.70-1.30); EST Glomerular Filtration Rate 89 mL/min (>60); Est Glom Filt Rate - Afr Amer 108 mL/min (>60); Estimated Creatinine Clearance 104.59 ml/min; Globulin 3.8 g/dL (2.2-4.2); Glucose 127 mg/dL (74-106); Potassium 3.8 mmol/L (3.5-5.1); Protein, Total 5.9 g/dL (6.4-8.2); Sodium Level 140 mmol/L (136-145)
[2023-10-03] MEDS: Vancomycin HCl 1,750 MG in 0.9% Normal Saline (500mL Bag) 500 ML 250 MG IV ×2 (04:16→17:19)
[2023-10-03] MEDS: Cefepime HCl 2 GM in 0.9% Normal Saline (100mL MB+) 100 ML IV (05:46)
[2023-10-03] MEDS: Acetaminophen 325 MG Tablet 650 MG PO (05:48)
[2023-10-03 07:16] LABS: Platelet Estimate MOD DEC (ADEQ)
[2023-10-03] MEDS: Acyclovir 200 MG Capsule 400 MG PO (07:58)
--- NOTE | 2023-10-03 08:38 | CON.PCM.CC_ITS ---
HPI Consult Data Date of Consult: 10/03/23 HPI Narrative Reason for Consultation: sepsis, neutropenic fever HPI Narrative: 58M PMH NHL on chemo (last dose 2d ago), recent Dx AF not on A/C due to severe pancytopenia, chronic LLE edema, HTN, tobacco abuse, CKD stage II-III who was referred to the ED by his oncologist after he developed fever with worsening left leg redness and swelling over the last 3 weeks. Recent admission ~3 weeks ago where he was treated for E. coli bacteremia and was found to have new onset AF RVR. Prior to this admission he received an injection of gCSF when he was noted to have a fever of 101 degrees Fahrenheit in the office and was then started on oral Keflex for presumed cellulitis of the LLE. Unfortunately, he continued to worsen in spite of this treatment with persistent fever and tachycardia ~150 bp along with increasing pain and redness of his LLE with swelling over the area consistent with an abscess at which point he presented to the ED. In the ED he was noted to be septic with likely UTI and underwent I&D for LLE abscess. Imaging of the LLE on recent admission negative for VTED. He was ultimately admitted to the ICU and I was consulted this AM for on-going critical care management. Pt reports feeling better this AM. Denies any complaints at this time. [facility] Medical History (Updated 10/03/23 @ 04:[address] Morgan Blunt, ) Anemia Chronic kidney disease (CKD) Contact with and (suspected) exposure to other viral communicable diseases Hypersplenism Hypertension Near syncope (09/2019) Neutropenic fever Non Hodgkin's lymphoma Obesity Pancytopenia Pancytopenia Paroxysmal supraventricular tachycardia (11/27/19) Thrombocytopenia Tobacco abuse counseling Home Medications acyclovir 400 mg tablet 400 mg PO DAILY cold sore 09/14/23 [History Last Taken 09/14/23] metoprolol succinate 100 mg tablet,extended release 24 hr 100 mg PO DAILY 1 month #30 tabs 09/21/23 [Rx Last Taken Unknown] cephalexin 250 mg capsule 250 mg PO 4X/DAY 10/02/23 [History Last Taken Unknown] diltiazem HCl 240 mg capsule,extended release 24 hr 240 mg PO Q24H 10/02/23 [History Last Taken Unknown] Allergy/AdvReac Type Severity Reaction Status Date / Time [facility] Allergy dyspnea/diz Verified 10/02/23 15:14 zness rituximab Allergy Shortness Verified 10/02/23 15:14 of breath Surgical History History of bone marrow biopsy Social History household members: spouse Smoking Status: Former smoker ROS ROS Narrative Full 12 point ROS completed and neg unless stated in HPI above Objective Data Objective Data Vital Signs: Vital Signs Last response Temperature 38.7 C H 10/03/23 06:00 Temperature Source Oral 10/03/23 06:00 Pulse Rate 107 H 10/03/23 07:00 Respiratory Rate 19 H 10/03/23 07:00 Respiratory Effort Non-Labored 10/03/23 08:00 Respiratory Depth Normal 10/03/23 08:00 Respiratory Pattern Normal 10/03/23 08:00 Blood Pressure 110/72 10/03/23 07:00 Blood Pressure Mean 84 10/03/23 07:00 Blood Pressure Source Monitor 10/03/23 07:00 Blood Pressure Position Semi-Fowlers 10/03/23 07:00 Blood Pressure Location Right Arm 10/03/23 07:00 Pulse Ox 98 10/03/23 07:00 Oxygen Delivery Method Room Air 10/03/23 08:00 I&O: I&O Last 24 Hours 10/02/23 10/02/23 10/03/23 11:59 23:59 11:59 Intake Total 4800 / 4800 2260 / 2260 Output Total 380 / 380 1200 / 1200 Balance 4420 / 4420 1060 / 1060 I&O: Total Stay 10/02/23 15:09 thru 10/03/23 08:00 Intake Total 7060 Output Total 1580 Balance 5480 Current Meds Ordered / Administered: Current meds ordered / Administered Generic Name Dose Route Start Last Admin Trade Name Freq PRN Reason Stop Dose Admin Acetaminophen 650 mg 10/02/23 22:06 10/03/23 05:48 Acetaminophen 325 Mg Tablet PO 650 mg Q6H PRN PRN Administration Pain Score 1-5/10 or fever Acyclovir 400 mg 10/03/23 10:00 10/03/23 07:58 Acyclovir 200 Mg Capsule PO 400 mg DAILY CUBA Administration Cefepime HCl 2 gm/ Sodium 100 mls @ 200 mls/hr 10/02/23 22:06 10/03/23 06:17 Chloride IV Infused Q8 CUBA Infusion Vancomycin IV-PHARMACY TO DOSE 500 mls @ 250 mls/hr 10/02/23 22:06 1 each/ Sodium Chloride IV PRN PRN Rx to Dose Protocol Pantoprazole Sodium 40 mg/ 110 mls @ 330 mls/hr 10/03/23 10:00 Sodium Chloride IV Q24 CUBA Sodium Chloride 250 mls @ 15 mls/hr 10/02/23 22:06 IV .[id number] PRN Additional IVPB Infusion Sodium Chloride 250 mls @ 15 mls/hr 10/02/23 22:06 IV .[id number] PRN Saline Flush Vancomycin HCl 1,750 mg/ 535 mls @ 250 mls/hr 10/03/23 05:00 10/03/23 06:25 Sodium Chloride IV Infused Q12H CUBA Infusion Lactobacillus Acidophilus 2 tablet 10/02/23 22:06 10/03/23 07:58 Lactobacillus Acidophilus PO 2 tablet BID CUBA Administration Morphine Sulfate 2 mg 10/02/23 22:06 10/02/23 23:26 Morphine 2 Mg/Ml Syringe IV 2 mg Q4H PRN PRN Administration Pain Score 6-10 Nutritional Formula (Lactose Free) 118 ml 10/03/23 08:00 10/03/23 07:58 Ensure Compact 118 Ml Liquid PO Not Given TIDCM CUBA Sodium Chloride 10 - 40 ml 10/02/23 22:06 0.9% Saline Lock 10 Ml Syringe IV UD PRN SALINE FLUSH Vancomycin Protocol 1 lab 10/04/23 02:30 Vancomycin Trough/Random Due [facility] 10/04/23 06:30 DAILY [facility] Medical Records Data Attestation: I reviewed the patient's medical records Lab / Micro Data Attestation: I reviewed the patient's lab results. 10/03/23 03:26 10/03/23 03:26 Labs: Laboratory Results - last 24 hr 10/02/23 16:17: WBC 0.1 L*, RBC 3.10 L, Hgb 9.1 L, Hct 27.4 L, MCV 88.4, MCH 29.4, MCHC 33.2, RDW Std Deviation 50.0 H, RDW Coeff of Екатерина 15.8 H, Plt Count 23 L*, MPV 9.6, Immature Gran % (Auto) 0.000, Neut % (Auto) 85.7 H, Lymph % (Auto) 14.3 L, [place] % (Auto) 0.0, Eos % (Auto) 0.0, Baso % (Auto) 0.0, Absolute Neuts (auto) 0.1 L, Absolute Lymphs (auto) 0.01 L, Nucleated RBC % 0, Differential Comment SEE COMMENTS, Diff Path Review May foll, Platelet Estimate MKD DEC, RBC Morphology N CHROM, Anisocytosis RARE, Macrocytosis RARE, Ovalocytes RARE, PT 16.2 H, INR 1.3, APTT 31.6, Sodium 136, Potassium 4.0, Chloride 103, Carbon Dioxide 27.0, Anion Gap 6, BUN 23 H, Creatinine 1.12, Estim Creat Clear Calc 84.92, Est GFR (MDRD) Af Amer 86, Est GFR (MDRD) Non-Af 71, BUN/Creatinine Ratio 20.5 H, Glucose 143 H, Lactic Acid 1.8, Calcium 8.1 L, Total Bilirubin 2.00 H, AST 83 H, ALT 120 H, Alkaline Phosphatase 121 H, Troponin I High Sens 10, Total Protein 7.3, Albumin 2.7 L, Globulin 4.6 H, Albumin/Globulin Ratio 0.6 L 10/02/23 16:50: Urine Color Yellow, Urine Clarity Sl. Cloudy, Urine pH 5.0, Ur Specific [place] 1.015, Urine Protein 100 H, Urine Glucose (UA) Normal, Urine Ketones 5 H, Urine Occult Blood 25 H, Urine Nitrite Positive H, Urine Bilirubin 3 H, Urine Urobilinogen 8 H, Ur Leukocyte Esterase 25 H, Urine RBC 0-5 SEEN, Urine WBC 0-5 SEEN, Ur Squamous Epith Cells 0 SEEN, Urine Bacteria 2+, Urine Mucus 0 SEEN 10/02/23 22:24: Blood Type O POSITIVE, Antibody Screen NEGATIVE 10/02/23 22:27: Lactic Acid 1.3, Total Creatine Kinase 34 L 10/03/23 03:26: WBC 0.1 L*, RBC 2.44 L, Hgb 7.2 L, Hct 21.9 L, MCV 89.8, MCH 29.5, MCHC 32.9, RDW Std Deviation 50.6 H, RDW Coeff of Екатерина 15.8 H, Plt Count 19 L*, MPV 9.9, Neut % (Auto) Not Reportable, Absolute Neuts (auto) TNP, Absolute Lymphs (auto) TNP, Diff Path Review November foll, Platelet Estimate MOD DEC, Sodium 140, Potassium 3.8, Chloride 107, Carbon Dioxide 28.0, Anion Gap 5, BUN 20 H, Cr eatinine 0.92, Estim Creat Clear Calc 104.59, Est GFR (MDRD) Af Amer 108, Est GFR (MDRD) Non-Af 89, BUN/Creatinine Ratio 21.8 H, Glucose 127 H, Calcium 7.2 L, Total Bilirubin 1.00, AST 38 H, ALT 76 H, Alkaline Phosphatase 88, Total Protein 5.9 L, Albumin 2.1 L, Globulin 3.8, Albumin/Globulin Ratio 0.6 L Micro: Microbiology 10/02/23 16:15 Blood Culture (Wb) - Venous Blood Culture - Preliminary 10/02/23 16:43 Mucosa - Nose SARS-CoV-2, Influenza & RSV (PCR) - Final Imaging Radiology Impression Chest X-Ray 10/02/23 16:14 IMPRESSION: Mild interstitial prominence. Electronically Signed: Palmer Melo DO at 17:52 EDT Reading Location ID and State: [facility] / [place] Tel [phone], Service support , Lower Extremity CT 10/02/23 16:36 IMPRESSION: There is subcutaneous edema of the left lower leg anterolaterally with a thick wall collection noted likely representing an abscess . Electronically Signed: Palmer Melo DO at 18:58 EDT , Assessment and Plan . Assessment and plan: PE: General: acute on chronically ill appearing; in no distress HEENT: anicteric Sclera, nl nose; supple neck, no masses Cardiovascular: irreg irreg; +S1/S2; No rubs, gallops; no displaced PM Respiratory: diminished; no crackles, wheezes, or rhonchi Abdominal: Non-tender; Non distended; hypoBS x 4 Extremities: LLE dressing C/D/I; No clubbing, cyanosis; capillary refill < 2 sec Skin: intact, no rashes Neurological: A&Ox3; no gross deficits appreciated A/P #Sepsis #LLE abscess sp I&D #UTI #Neutropenic fever #Severe pancytopenia #SAMANTHA on CKD #Elevated LFTs #NHL on chemotherapy #Recent E. coli bacteremia sp Zosyn x7d #HFpEF (grade II DD) with suspected 2* pHTN -SP fluid resuscitation, PRN NEpi to keep MAP > 65 -SP clinda in ED for ?nec fasc; cont emp vanc, would switch cefepime to Merrem for emp ESBL coverage, F/U pancultures, recommend ID consult when available for further guidance and Abx management -LE US study to R/O underlying VTED -Gentle IVF hydration x24-48h; strict I/Os; monitor & replace electrolytes as needed -Cont transfusions to keep Hgb > 7 & Plt > 10-20k unless active bleeding; sp gCSF 3/15 at outpatient clinic; recommend oncology consult PO diet SCDs Guarded overall prognosis Critical Care Time: 60 min The entirety of this encounter was done via Telemedicine
[2023-10-03] MEDS: Pantoprazole Sodium 40 MG in 0.9% Normal Saline (100mL MB+) 100 ML 330 MG IV (09:17)
--- NOTE | 2023-10-03 11:10 | VDLE_ITS ---
Reason For Study: swelling RIGHT LEFT CFV is compressible, spontaneous, phasic, GSV is normal. competent and demonstrates normal CFV is compressible, spontaneous, phasic, augmentation. competent, and demonstrates normal Procedure augmentation. This is a venous duplex using B-mode, color FV is compressible, spontaneous, phasic, flow and spectral Doppler. competent and demonstrates normal Exam performed portable in ICU/CCU. augmentation. The exam was diagnostic. POP V is compressible, spontaneous, phasic, A preliminary report was called and/or faxed competent and demonstrates normal to the pt's RN. augmentation. T/P Trunk is compressible. PTV is compressible. LT PerV is compressible. VL/Venous Duplex US, Unilateral Interpretation Summary Deep veins of the left lower extremity are patent and compressible segmentally. There is no evidence of left lower extremity deep vein thrombosis. Valvular competence appears intac t within the proximal deep venous system on the left . The left great saphenous vein appears patent a nd compressible segmentally. The right common femoral vein is patent and compressible . Ordering Physician: Leonard Green Performed By: Ronald Mann RVT
[2023-10-03] MEDS: Morphine 2 MG/ML Syringe IV ×2 (11:27→15:30)
[2023-10-03] MEDS: Meropenem 1 GM in 0.9% Normal Saline (100mL MB+) 100 ML IV ×2 (14:01→20:48)
--- NOTE | 2023-10-03 14:02 | PN_ITS ---
Subjective Subjective Patient seen and examined. He also complained of pain in his LLE, where he had the I&D. He denies any fever or chills. Review of systems is otherwise negative. Objective Data Objective Data Vital Signs: Vital Signs Temp Pulse Resp BP Pulse Ox O2 Del Method 99.7 F H 124 H 15 119/86 H 98 Room Air 10/03/23 11:00 10/03/23 11:00 10/03/23 11:00 10/03/23 11:00 10/03/23 11:00 10/03/23 12:00 Oxygen Delivery Method Room Air Weight: 220 lb 10.923 oz Body Mass Index (BMI) 29.9 Intake & Output: Intake and Output for Last 24 Hours 10/01/23 10/02/23 10/03/23 23:59 23:59 23:59 Intake Total 4800 / 4800 2820 / 2820 Output Total 380 / 380 1475 / 1475 Balance 4420 / 4420 1345 / 1345 Lab / Micro Data 10/03/23 03:26 10/03/23 03:26 Labs: Laboratory Results - last 24 hr 10/02/23 16:17: WBC 0.1 L*, RBC 3.10 L, Hgb 9.1 L, Hct 27.4 L, MCV 88.4, MCH 29.4, MCHC 33.2, RDW Std Deviation 50.0 H, RDW Coeff of Екатерина 15.8 H, Plt Count 23 L*, MPV 9.6, Immature Gran % (Auto) 0.000, Neut % (Auto) 85.7 H, Lymph % (Auto) 14.3 L, [place] % (Auto) 0.0, Eos % (Auto) 0.0, Baso % (Auto) 0.0, Absolute Neuts (auto) 0.1 L, Absolute Lymphs (auto) 0.01 L, Nucleated RBC % 0, Differential Comment SEE COMMENTS, Diff Path Review May foll, Platelet Estimate MKD DEC, RBC Morphology N CHROM, Anisocytosis RARE, Macrocytosis RARE, Ovalocytes RARE, PT 16.2 H, INR 1.3, APTT 31.6, Sodium 136, Potassium 4.0, Chloride 103, Carbon Dioxide 27.0, Anion Gap 6, BUN 23 H, Creatinine 1.12, Estim Creat Clear Calc 84.92, Est GFR (MDRD) Af Amer 86, Est GFR (MDRD) Non-Af 71, BUN/Creatinine Ratio 20.5 H, Glucose 143 H, Lactic Acid 1.8, Calcium 8.1 L, Total Bilirubin 2.00 H, AST 83 H, ALT 120 H, Alkaline Phosphatase 121 H, Troponin I High Sens 10, Total Protein 7.3, Albumin 2.7 L, Globulin 4.6 H, Albumin/Globulin Ratio 0.6 L 10/02/23 16:50: Urine Color Yellow, Urine Clarity Sl. Cloudy, Urine pH 5.0, Ur Specific [place] 1.015, Urine Protein 100 H, Urine Glucose (UA) Normal, Urine Ketones 5 H, Urine Occult Blood 25 H, Urine Nitrite Positive H, Urine Bilirubin 3 H, Urine Urobilinogen 8 H, Ur Leukocyte Esterase 25 H, Urine RBC 0-5 SEEN, Urine WBC 0-5 SEEN, Ur Squamous Epith Cells 0 SEEN, Urine Bacteria 2+, Urine Mucus 0 SEEN 10/02/23 22:24: Blood Type O POSITIVE, Antibody Screen NEGATIVE 10/02/23 22:27: Lactic Acid 1.3, Total Creatine Kinase 34 L 10/03/23 03:26: WBC 0.1 L*, RBC 2.44 L, Hgb 7.2 L, Hct 21.9 L, MCV 89.8, MCH 29.5, MCHC 32.9, RDW Std Deviation 50.6 H, RDW Coeff of Екатерина 15.8 H, Plt Count 19 L*, MPV 9.9, Neut % (Auto) Not Reportable, Absolute Neuts (auto) TNP, Absolute Lymphs (auto) TNP, Diff Path Review November foll, Platelet Estimate MOD DEC, Sodium 140, Potassium 3.8, Chloride 107, Carbon Dioxide 28.0, Anion Gap 5, BUN 20 H, Creatinine 0.92, Estim Creat Clear Calc 104.59, Est GFR (MDRD) Af Amer 108, Est GFR (MDRD) Non-Af 89, BUN/Creatinine Ratio 21.8 H, Glucose 127 H, Calcium 7.2 L, Total Bilirubin 1.00, AST 38 H, ALT 76 H, Alkaline Phosphatase 88, Total Protein 5.9 L, Albumin 2.1 L, Globulin 3.8, Albumin/Globulin Ratio 0.6 L Micro: Microbiology 10/02/23 20:17 Wound Abcess - Leg, Left Gram Stain - Final 10/02/23 20:17 Wound Abcess - Leg, Left Wound Culture - Preliminary Gram negative lacey 10/02/23 16:15 Blood Culture (Wb) - Venous Blood Culture - Preliminary 10/02/23 16:43 Mucosa - Nose SARS-CoV-2, Influenza & RSV (PCR) - Final Radiography Diagnostic Testing: Radiology Impression Chest X-Ray 10/02/23 16:14 IMPRESSION: Mild interstitial prominence. Electronically Signed: Palmer Melo DO at 17:52 EDT , Lower Extremity CT 10/02/23 16:36 IMPRESSION: There is subcutaneous edema of the left lower leg anterolaterally with a thick wall collection noted likely representing an abscess . Electronically Signed: Palmer Melo DO at 18:58 EDT , Physical Exam Const alert, oriented x3, no apparent distress and well nourished General Appearance: cooperative HEENT normocephalic, head/scalp atraumatic, moist oral mucous membranes and oropharynx normal Eyes PERRL and EOMs intact bilaterally Neck no lymphadenopathy and supple Lymph Lymphatic: no lymphadenopathy noted Resp normal respiratory effort, normal air movement and clear to auscultation bilaterally Cardio regular rate, regular rhythm, S1 normal heart sound, S2 normal heart sound and no murmurs GI normal to inspection, nondistended, normoactive bowel sounds, soft to palpation, non-tender and non-distended Extremity Extremity Narrative: LLE wrapped in bandage. General Extremity: no tenderness to palpation of joints or extremities Skin Skin Narrative: LLE wrapped in bandage. Neuro CN's II-XII intact bilaterally and no focal motor deficits Motor Exam: strength 5/5 throughout and general weakness Psych thought process normal and cooperative Appearance: appropriate Assessment & Plan Assessment/Plan (1) Cellulitis and abscess of left lower extremity: (2) Neutropenic fever: PLAN: Plan #Sepsis due to LLE cellulitis and abscess * s/p I&D done in the ED. * On IV vancomycin and meropenem. Also has neutropenic fever with WBC remaining 0.1. He did have his last chemotherapy 3 days ago. * Wound cultures and blood cultures ordered. * On pain medication. * * #Nonhodgkin's lymphoma * on chemotherapy. * last had chemotherapy 2 days prior to admission. * follow with chemotherapy on outpatient basis * Thought to have metastasized to his liver and has also significantly inf iltrated his bone marrow. During his previous admission he had protracted pancytopenia as a result. * #Benign essential hypertension: on cardizem and metoprolol # History of atrial fibrillation: on cardizem and metoprolol. #Pancytopenia: * WBC 0.1 with absolute neutrophil count of 0. Hemoglobin and platelets also low. * This likely due to chemotherapy recently received. Monitor and transfuse if hemoglobin is less than 7. Will monitor platelets and discussed with oncologist about giving Granix. He did receive Granix yesterday. * #History of metastatic non-Hodgkin's lymphoma Charges/Coding Visit Charges Inpatient E&M: 66977 [facility] Hosp L3
--- NOTE | 2023-10-03 14:30 | CASEMGMT ---
RN CM chart review: Patient was admitted 09/14-09/21/23 for neutropenic fever. SEE RN CM assessment from 09/15/23. Patient was discharged to home with support from and follow-up plans in place. Patient returned to [facility] ED on 10/01 after being sent from oncologist office and admitted for sepsis. TIM CM in to discuss readmission with and needs at discharge. Patient has follow with oncologst; Per , patient did not see PCP on 09/24 as patient was getting transfusion. Patient has follow up with re dye hand on 10/05. Patient was taking medications as prescribed. Patient and deny needs at discharge. Patient to discharge home with family support and follow-up plans in place. CM will continue to follow this patient and plan for a safe discharge.
[2023-10-03] MEDS: 0.9% Saline Lock 10 ML Syringe IV ×2 (15:31→20:55)
[2023-10-03] MEDS: dilTIAZem CD 240 MG Capsule PO (15:56)
[2023-10-03] MEDS: dilTIAZem 25 MG/5 ML Vial IV BOLUS (17:12)
[2023-10-03] MEDS: Metoprolol(XL)Succ 100 MG Tablet PO (17:12)
[2023-10-03] MEDS: HYDROmorphone 1 MG/ML Syringe IV ×2 (17:19→20:54)
[2023-10-04] VITALS (25 sets, daily range): BP systolic 114–137; BP diastolic 67–89; PULSE 84–143; RESP 10–25; TEMP 37.1–37.6; O2SAT 91–100; BMI 29.3
[2023-10-04] MEDS: Vancomycin Trough/Random Due 1 LAB MC (04:42)
[2023-10-04 04:44] LABS: Hemoglobin 7.2 g/dL (13.0-16.5); Mean Corp Hgb Conc 32.7 g/dL (32-36); Mean Corpuscular Hgb 29.3 pg (27.0-32.0); Mean Corpuscular Volume 89.4 fL (80-94); POSITIVE COUNT YES; POSITIVE DIFFERENTIAL YES; POSITIVE MORPHOLOGY YES; RBC Distribution Width CV 15.2 % (11.6-14.6); RBC Distribution Width SD 48.2 fl (35.1-43.9); Red Blood Count 2.46 M/mm3 (4.6-6.2)
[2023-10-04 04:57] LABS: Platelet Count 22 K/mm3 (150-450); White Blood Count 0.1 K/mm3 (4.4-11.0)
[2023-10-04 04:58] LABS: Differential Indicated MANUAL DIFF
[2023-10-04 05:01] LABS: ALB/GLOB Ratio 0.5 RATIO (0.9-2.4); AST(SGOT) 18 U/L (15-37); Alanine Aminotransfer ALT/SGPT 50 U/L (16-61); Alkaline Phosphatase 78 U/L (45-117); Anion Gap 6 (5-15); BUN 16 mg/dL (7-18); BUN/Creat Ratio 22.3 RATIO (10-20); Calcium,Total 7.8 mg/dL (8.5-10.1); Chloride 105 mmol/L (98-107); Creatinine, Serum 0.72 mg/dL (0.70-1.30); EST Glomerular Filtration Rate 119 mL/min (>60); Est Glom Filt Rate - Afr Amer 144 mL/min (>60); Estimated Creatinine Clearance 133.64 ml/min; Globulin 3.8 g/dL (2.2-4.2); Glucose 107 mg/dL (74-106); Potassium 3.5 mmol/L (3.5-5.1); Protein, Total 5.8 g/dL (6.4-8.2); Sodium Level 139 mmol/L (136-145); Vancomycin, Trough Level 12.9 ug/mL (5.0-15.0)
--- NOTE | 2023-10-04 05:19 | PCM.RX.CS ---
Consult Antibiotic Management Pharmacy has been consulted to manage selected antibiotic: Vancomycin Type of Intervention Type of Consult: Follow-up Suspected Infection Suspected Infection: Sepsis Labs Labs: Sodium 139 mmol/L (136-145) 10/04/23 04:30 Potassium 3.5 mmol/L (3.5-5.1) 10/04/23 04:30 Chloride 105 mmol/L (98-107) 10/04/23 04:30 Carbon Dioxide 28.0 mmol/L (21.0-32.0) 10/04/23 04:30 Anion Gap 6 (5-15) 10/04/23 04:30 BUN 16 mg/dL (7-18) 10/04/23 04:30 Creatinine 0.72 mg/dL (0.70-1.30) 10/04/23 04:30 Est GFR (MDRD) Af Amer 144 mL/min (>60) 10/04/23 04:30 Est GFR (MDRD) Non-Af 119 mL/min (>60) 10/04/23 04:30 BUN/Creatinine Ratio 22.3 RATIO (10-20) H 10/04/23 04:30 Glucose 107 mg/dL (74-106) H 10/04/23 04:30 Vancomycin Trough 12.9 ug/mL (5.0-15.0) 10/04/23 04:30 Microbiology Microbiology: Microbiology 10/02/23 20:17 Wound Abcess - Leg, Left Gram Stain - Final 10/02/23 20:17 Wound Abcess - Leg, Left Wound Culture - Preliminary Gram negative lacey 10/02/23 16:15 Blood Culture (Wb) - Venous Blood Culture - Preliminary 10/02/23 16:43 Mucosa - Nose SARS-CoV-2, Influenza & RSV (PCR) - Final Dosing Weight Weight used for dosin.1 kg Estimated Creatinine Clearance Estimated Creatinine Clearance: 134 Goal Trough Goal Trough: 15-20 mcg/mL Pharmacy Plan for Drug Dosing Pharmacy Plan for Drug Dosing: Vancomycin trough level of 12.9, drawn 11.2hrs post-dose, was below the target range of 15-20. Will increase dose to 2000mg q12h, and will draw another trough prior to fourth dose of the new regimen. Pharmacy Service will continue to monitor and adjust dosing as required. Follow-Up Labs Follow-Up Labs: Trough: Vancomycin Date/Time Labs Ordered Labs to be done on [date and time ordered]: 10/05/23 @2584
[2023-10-04] MEDS: Vancomycin HCl 2,000 MG in 0.9% Normal Saline (500mL Bag) 500 ML 250 MG IV ×2 (05:37→17:21)
[2023-10-04] MEDS: Meropenem 1 GM in 0.9% Normal Saline (100mL MB+) 100 ML IV ×3 (05:37→20:40)
[2023-10-04 06:10] LABS: Differential Comment SCANNED; Platelet Estimate MKD DEC (ADEQ)
[2023-10-04] MEDS: Acyclovir 200 MG Capsule 400 MG PO (07:37)
[2023-10-04] MEDS: Metoprolol(XL)Succ 100 MG Tablet PO (07:37)
[2023-10-04] MEDS: dilTIAZem CD 240 MG Capsule PO (07:38)
--- NOTE | 2023-10-04 08:45 | PN.CC_ITS ---
Objective Data Objective Data Vital Signs: Vital Signs Last response Temperature 37.4 C H 10/04/23 07:00 Temperature Source Temporal 10/04/23 07:00 Pulse Rate 113 H 10/04/23 07:37 Respiratory Rate 16 10/04/23 07:00 Respiratory Effort Normal, Non-Labored 10/04/23 04:00 Respiratory Depth Normal 10/04/23 04:00 Respiratory Pattern Normal 10/04/23 04:00 Blood Pressure 117/87 H 10/04/23 07:37 Blood Pressure Mean 97 10/04/23 07:00 Blood Pressure Source Monitor 10/04/23 06:00 Blood Pressure Position Semi-Fowlers 10/04/23 06:00 Blood Pressure Location Right Arm 10/04/23 06:00 Pulse Ox 91 10/04/23 07:00 Oxygen Delivery Method Room Air 10/04/23 07:00 I&O: I&O Last 24 Hours 10/03/23 10/03/23 10/04/23 11:59 23:59 11:59 Intake Total 2820 / 3675 855 / 3675 880 / 880 Output Total 1475 / 2450 825 / 2450 650 / 650 Balance 1345 / 1225 30 / 1225 230 / 230 I&O: Total Stay 10/02/23 15:09 thru 10/04/23 08:01 Intake Total 9355 Output Total 3330 Balance 6025 Current Meds Ordered / Administered: Current meds ordered / Administered Generic Name Dose Route Start Last Admin Trade Name Freq PRN Reason Stop Dose Admin Acetaminophen 650 mg 10/02/23 22:06 10/03/23 05:48 Acetaminophen 325 Mg Tablet PO 650 mg Q6H PRN PRN Administration Pain Score 1-5/10 or fever Acyclovir 400 mg 10/03/23 10:00 10/04/23 07:37 Acyclovir 200 Mg Capsule PO 400 mg DAILY CUBA Administration Diltiazem HCl 240 mg 10/03/23 14:45 10/04/23 07:38 Diltiazem Cd 240 Mg Capsule PO 240 mg DAILY CUBA Administration Protocol Hydromorphone HCl 1 mg 10/03/23 16:55 10/03/23 20:54 Hydromorphone 1 Mg/Ml Syringe IV 1 mg Q2H PRN PRN Administration Pain Score 4-10 Vancomycin IV-PHARMACY TO DOSE 500 mls @ 250 mls/hr 10/02/23 22:06 1 each/ Sodium Chloride IV PRN PRN Rx to Dose Protocol Pantoprazole Sodium 40 mg/ 110 mls @ 330 mls/hr 10/03/23 10:00 10/03/23 09:37 Sodium Chloride IV Infused Q24 CUBA Infusion Sodium Chloride 250 mls @ 15 mls/hr 10/02/23 22:06 IV .[id number] PRN Additional IVPB Infusion Sodium Chloride 250 mls @ 15 mls/hr 10/02/23 22:06 IV .[id number] PRN Saline Flush Meropenem 1 gm/ Sodium 120 mls @ 33 mls/hr 10/03/23 14:00 10/04/23 05:37 Chloride IV 33 mls/hr Q8 CUBA Administration Vancomycin HCl 2,000 mg/ 540 mls @ 250 mls/hr 10/04/23 05:30 10/04/23 08:01 Sodium Chloride IV Infused Q12H CUBA Infusion Lactobacillus Acidophilus 2 tablet 10/02/23 22:06 10/04/23 07:37 Lactobacillus Acidophilus PO 2 tablet BID CUBA Administration Metoprolol Succinate 100 mg 10/04/23 10:00 10/04/23 07:37 Metoprolol(Xl)Succ 100 Mg Tablet PO 100 mg DAILY CUBA Administration Protocol Sodium Chloride 10 - 40 ml 10/02/23 22:06 10/03/23 20:55 0.9% Saline Lock 10 Ml Syringe IV 40 ml UD PRN Administration SALINE FLUSH Vancomycin Protocol 1 lab 10/05/23 15:00 Vancomycin Trough/Random Due MC 10/05/23 19:00 DAILY [facility] Lab / Micro Data 10/04/23 04:30 10/04/23 04:30 Labs: Laboratory Results - last 24 hr 10/04/23 04:30: WBC 0.1 L*, RBC 2.46 L, Hgb 7.2 L, Hct 22.0 L, MCV 89.4, MCH 29.3, MCHC 32.7, RDW Std Deviation 48.2 H, RDW Coeff of Екатерина 15.2 H, Plt Count 22 L*, MPV 10.0, Neut % (Auto) Not Reportable, Absolute Neuts (auto) TNP, Absolute Lymphs (auto) TNP, Differential Comment SCANNED, Diff Path Review May foll, Platelet Estimate MKD DEC, Sodium 139, Potassium 3.5, Chloride 105, Carbon Dioxide 28.0, Anion Gap 6, BUN 16, Creatinine 0.72, Estim Creat Clear Calc 133.64, Est GFR (MDRD) Af Amer 144, Est GFR (MDRD) Non-Af 119, BUN/Creatinine Ratio 22.3 H, Glucose 107 H, Calcium 7.8 L, Total Bilirubin 0.80, AST 18, ALT 50, Alkaline Phosphatase 78, Total Protein 5.8 L, Albumin 2.0 L, Globulin 3.8, Albumin/Globulin Ratio 0.5 L, Vancomycin Trough 12.9 Micro: Microbiology 10/02/23 16:15 Blood Culture (Wb) - Venous Blood Culture - Preliminary Gram negative lacey 10/02/23 20:17 Wound Abcess - Leg, Left Gram Stain - Final 10/02/23 20:17 Wound Abcess - Leg, Left Wound Culture - Preliminary Gram negative lacey Assessment and Plan . Assessment and plan: Critical Care Time: The entirety of this encounter was done via Telemedicine
[2023-10-04] MEDS: Pantoprazole Sodium 40 MG in 0.9% Normal Saline (100mL MB+) 100 ML 330 MG IV (09:48)
--- NOTE | 2023-10-04 10:17 | PCM.PROGNOTE ---
Subjective Subjective Patient seen and examined. He has no active complaints. Pain is well controlled. Review of systems is otherwise negative. She is tachycardic. Wound cultures grew E. coli. Objective Data Objective Data Vital Signs: Vital Signs Temp Pulse Resp BP Pulse Ox O2 Del Method 98.9 F 143 H 21 H 131/88 H 97 Room Air 10/04/23 08:00 10/04/23 09:00 10/04/23 09:00 10/04/23 09:00 10/04/23 09:00 10/04/23 09:00 Oxygen Delivery Method Room Air Weight: 216 lb 7.903 oz Body Mass Index (BMI) 29.3 Intake & Output: Intake and Output for Last 24 Hours 10/02/23 10/03/23 10/04/23 23:59 23:59 23:59 Intake Total 4800 / 4800 3675 / 3675 1110 / 1110 Output Total 380 / 380 2300 / 2450 900 / 900 Balance 4420 / 4420 1375 / 1225 210 / 210 Lab / Micro Data 10/04/23 04:30 10/04/23 04:30 Labs: Laboratory Results - last 24 hr 10/04/23 04:30: WBC 0.1 L*, RBC 2.46 L, Hgb 7.2 L, Hct 22.0 L, MCV 89.4, MCH 29.3, MCHC 32.7, RDW Std Deviation 48.2 H, RDW Coeff of Екатерина 15.2 H, Plt Count 22 L*, MPV 10.0, Neut % (Auto) Not Reportable, Absolute Neuts (auto) TNP, Absolute Lymphs (auto) TNP, Differential Comment SCANNED, Diff Path Review May simran, Platelet Estimate MKD DEC, Sodium 139, Potassium 3.5, Chloride 105, Carbon Dioxide 28.0, Anion Gap 6, BUN 16, Creatinine 0.72, Estim Creat Clear Calc 133.64, Est GFR (MDRD) Af Amer 144, Est GFR (MDRD) Non-Af 119, BUN/Creatinine Ratio 22.3 H, Glucose 107 H, Calcium 7.8 L, Total Bilirubin 0.80, AST 18, ALT 50, Alkaline Phosphatase 78, Total Protein 5.8 L, Albumin 2.0 L, Globulin 3.8, Albumin/Globulin Ratio 0.5 L, Vancomycin Trough 12.9 Micro: Microbiology 10/02/23 20:17 Wound Abcess - Leg, Left Gram Stain - Final 10/02/23 20:17 Wound Abcess - Leg, Left Wound Culture - Final Escherichia coli 10/02/23 16:50 Urine, Clean Catch Urine Culture - Preliminary Culture exhibits no growth. 10/02/23 16:15 Blood Culture (Wb) - Venous Blood Culture - Preliminary Gram negative lacey 10/02/23 16:43 Mucosa - Nose SARS-CoV-2, Influenza & RSV (PCR) - Final Physical Exam Const alert, oriented x3 and no apparent distress General Appearance: cooperative HEENT normocephalic, head/scalp atraumatic, hearing grossly normal bilaterally, moist oral mucous membranes and oropharynx normal Eyes PERRL and EOMs intact bilaterally Neck no lymphadenopathy and supple Lymph Lymphatic: no lymphadenopathy noted Resp normal respiratory effort, normal air movement, no retractions, no use of accessory muscles and clear to auscultation bilaterally Cardio regular rate, regular rhythm, S1 normal heart sound, S2 normal heart sound and no murmurs Cardio Narrative: Tachycardia noted GI normal to inspection, nondistended, normoactive bowel sounds, soft to palpation, non-tender and non-distended Extremity Extremity Narrative: LLE wrapped in bandage. General Extremity: no tenderness to palpation of joints or extremities Skin Skin Narrative: LLE wrapped in bandage. Neuro oriented x3, CN's II-XII intact bilaterally, moves all extremities and no focal motor deficits Sensorium / Orientation: awake, alert, oriented to person, oriented to place and oriented to time Speech: speech normal Motor Exam: strength 5/5 throughout and general weakness Psych thought process normal, cooperative and affect normal Appearance: appropriate Assessment & Plan Assessment/Plan (1) Cellulitis and abscess of left lower extremity: (2) Neutropenic fever: PLAN: Plan #Sepsis due to LLE cellulitis and abscess s/p I&D done in the ED. On IV vancomycin and meropenem. Also has neutropenic fever with WBC remaining 0.1. He did have his last chemotherapy 3 days ago. Wound cultures growing E. coli. On pain medication. #Non-Hodgkin's lymphoma on chemotherapy. last had chemotherapy 2 days prior to admission. 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 During his previous admission he had protracted pancytopenia as a result. #Benign essential hypertension: on cardizem and metoprolol # History of atrial fibrillation: on cardizem and metoprolol. HR is poorly controlled. She received metoprolol and cardizem. #Pancytopenia: WBC 0.1 with absolute neutrophil count of 0. Hb is 7.2 and platelets are 22. This likely due to chemotherapy recently received. Monitor and transfuse if hemoglobin is less than 7. Will monitor platelets and discussed with oncologist about giving Granix. He did receive Granix. Will place on granix. DVT prophylaxis; SCDs Charges/Coding Visit Charges Inpatient E&M: 03934 Subs Hosp L3
[2023-10-04] MEDS: HYDROmorphone 1 MG/ML Syringe IV (12:35)
[2023-10-04] MEDS: TBO-FILGRASTIM 300 MCG/0.5 ML ML SC (12:38)
[2023-10-05] VITALS (35 sets, daily range): BP systolic 97–141; BP diastolic 49–117; PULSE 70–124; RESP 12–26; TEMP 36.3–37.3; O2SAT 90–100; BMI 29.6
[2023-10-05] MEDS: Vancomycin HCl 2,000 MG in 0.9% Normal Saline (500mL Bag) 500 ML 250 MG IV (04:41)
[2023-10-05] MEDS: Meropenem 1 GM in 0.9% Normal Saline (100mL MB+) 100 ML IV (07:01)
[2023-10-05 07:53] LABS: ALB/GLOB Ratio 0.5 RATIO (0.9-2.4); AST(SGOT) 46 U/L (15-37); Alanine Aminotransfer ALT/SGPT 70 U/L (16-61); Albumin, Serum 1.9 g/dL (3.2-5.0); Alkaline Phosphatase 85 U/L (45-117); Anion Gap 4 (5-15); BUN 14 mg/dL (7-18); BUN/Creat Ratio 21.8 RATIO (10-20); Calcium,Total 7.7 mg/dL (8.5-10.1); Chloride 106 mmol/L (98-107); Creatinine, Serum 0.64 mg/dL (0.70-1.30); EST Glomerular Filtration Rate 135 mL/min (>60); Est Glom Filt Rate - Afr Amer 163 mL/min (>60); Estimated Creatinine Clearance 149.58 ml/min; Globulin 3.5 g/dL (2.2-4.2); Glucose 115 mg/dL (74-106); Potassium 3.3 mmol/L (3.5-5.1); Protein, Total 5.4 g/dL (6.4-8.2); Sodium Level 141 mmol/L (136-145)
[2023-10-05 08:13] LABS: Absolute Lymphocyte Count 0.03 X10^3/uL (0.83-4.51); Hematocrit 19.8 % (40-54); Hemoglobin 6.6 g/dL (13.0-16.5); Lymphocyte # 0.03 X10^3/ul (0.83-4.51); Lymphocyte % 33.3 % (19-41); Mean Corp Hgb Conc 33.3 g/dL (32-36); Mean Platelet Vol. 10.4 fl (6.2-12.0); Monocyte# 0.01 X10^3/uL; Monocyte% 11.1 % (0-10); NRBC Flagged by Analyzer 0 % (0-5); Neutrophil # 0.04 X10^3/uL (2.7-7.7); Neutrophil % 44.5 % (47-70); POSITIVE COUNT YES; POSITIVE DIFFERENTIAL YES; POSITIVE MORPHOLOGY YES; Platelet Count 23 K/mm3 (150-450); RBC Distribution Width SD 48.4 fl (35.1-43.9)
[2023-10-05] MEDS: Acyclovir 200 MG Capsule 400 MG PO (08:26)
[2023-10-05] MEDS: dilTIAZem CD 240 MG Capsule PO (08:27)
[2023-10-05] MEDS: Metoprolol(XL)Succ 100 MG Tablet PO (08:27)
[2023-10-05 08:28] LABS: Differential Indicated SCAN CRITERIA MET; White Blood Count 0.1 K/mm3 (4.4-11.0)
[2023-10-05] MEDS: HYDROmorphone 1 MG/ML Syringe IV (09:37)
[2023-10-05] MEDS: 0.9% Saline Lock 10 ML Syringe IV (09:38)
[2023-10-05 09:58] LABS: Differential Comment SCANNED; Platelet Estimate MKD DEC (ADEQ)
--- NOTE | 2023-10-05 10:10 | PN_ITS ---
Subjective Subjective Patient seen and examined. He is feeling better this morning. He had no active complaints. Review of systems otherwise negative. will call 3 billion 0.1 and platelets at 22. Hemoglobin is 6.6 and absolute neutrophil count is 0. Objective Data Objective Data Vital Signs: Vital Signs Temp Pulse Resp BP Pulse Ox O2 Del Method 98.1 F 96 16 122/87 H 97 Room Air 10/05/23 08:00 10/05/23 09:00 10/05/23 09:00 10/05/23 09:00 10/05/23 09:00 10/05/23 09:00 Oxygen Delivery Method Room Air Weight: 218 lb 4.122 oz Body Mass Index (BMI) 29.6 Intake & Output: Intake and Output for Last 24 Hours 10/03/23 10/04/23 10/05/23 23:59 23:59 23:59 Intake Total 3675 / 3675 2320 / 2320 660 / 660 Output Total 2300 / 2450 1850 / 1850 1250 / 1250 Balance 1375 / 1225 470 / 470 -590 / -590 Lab / Micro Data 10/05/23 05:25 10/05/23 05:25 Labs: Laboratory Results - last 24 hr 10/05/23 05:25: WBC 0.1 L*, RBC 2.20 L, Hgb 6.6 L, Hct 19.8 L, MCV 90.0, MCH 30.0, MCHC 33.3, RDW Std Deviation 48.4 H, RDW Coeff of Екатерина 15.0 H, Plt Count 23 L*, MPV 10.4, Immature Gran % (Auto) 11.100 H, Neut % (Auto) 44.5 L, Lymph % (Auto) 33.3, [place] % (Auto) 11.1 H, Eos % (Auto) 0.0, Baso % (Auto) 0.0, Absolute Neuts (auto) 0.0 L, Absolute Lymphs (auto) 0.03 L, Nucleated RBC % 0, Differential Comment SCANNED, Diff Path Review May foll, Platelet Estimate MKD DEC, Sodium 141, Potassium 3.3 L, Chloride 106, Carbon Dioxide 31.0, Anion Gap 4 L, BUN 14, Creatinine 0.64 L, Estim Creat Clear Calc 149.58, Est GFR (MDRD) Af Amer 163, Est GFR (MDRD) Non-Af 135, BUN/Creatinine Ratio 21.8 H, Glucose 115 H, Calcium 7.7 L, Total Bilirubin 1.00, AST 46 H, ALT 70 H, Alkaline Phosphatase 85, Total Protein 5.4 L, Albumin 1.9 L, Globulin 3.5, Albumin/Globulin Ratio 0.5 L Micro: Microbiology 10/02/23 16:50 Urine, Clean Catch Urine Culture - Final Culture exhibits no growth. 10/02/23 16:15 Blood Culture (Wb) - Venous Blood Culture - Final Escherichia coli 10/02/23 20:17 Wound Abcess - Leg, Left Gram Stain - Final 10/02/23 20:17 Wound Abcess - Leg, Left Wound Culture - Final Escherichia coli 10/02/23 16:43 Mucosa - Nose SARS-CoV-2, Influenza & RSV (PCR) - Final Physical Exam Const alert, oriented x3, no apparent distress, average body habitus and well nourished General Appearance: cooperative HEENT normocephalic, head/scalp atraumatic, hearing grossly normal bilaterally, moist oral mucous membranes and oropharynx normal Eyes PERRL and EOMs intact bilaterally Neck no lymphadenopathy and supple Lymph Lymphatic: no lymphadenopathy noted Resp normal respiratory effort, normal air movement, no retractions, no use of accessory muscles and clear to auscultation bilaterally Cardio S1 normal heart sound, S2 normal heart sound and no murmurs Cardio Narrative: afib, rate poorly controlled GI normal to inspection, nondistended, normoactive bowel sounds, soft to palpation, non-tender and non-distended Extremity Extremity Narrative: LLE wrapped in bandage. General Extremity: no tenderness to palpation of joints or extremities Skin Skin Narrative: LLE wrapped in bandage. Neuro oriented x3, CN's II-XII intact bilaterally, moves all extremities and no focal motor deficits Sensorium / Orientation: awake, alert, oriented to person, oriented to place and oriented to time Speech: speech normal Motor Exam: strength 5/5 throughout and general weakness Psych thought process normal, cooperative and affect normal Appearance: appropriate Assessment & Plan Assessment/Plan (1) Cellulitis and abscess of left lower extremity: (2) Neutropenic fever: PLAN: Plan #Sepsis due to LLE cellulitis and abscess * s/p I&D done in the ED. * On IV vancomycin and meropenem. Also has neutropenic fever with WBC remaining 0.1. He did have his last chemotherapy 3 days prior to admission * Wound cultures growing E. coli. * On pain medication. * will switch antibiotic to IV ceftriaxone * #Non-Hodgkin's lymphoma * on chemotherapy. * last had chemotherapy 2 days prior to admission. * follow with chemotherapy on outpatient basis * Thought to have metastasized to his liver and has also significantly infiltrated his bone marrow. During his previous admission he had protracted pancytopenia as a result. * #Benign essential hypertension: on cardizem and metoprolol # History of atrial fibrillation: * on cardizem and metoprolol. HR is poorly controlled. She received metoprolol and cardizem. #Pancytopenia: * WBC remains 0.1 with absolute neutrophil count of 0. Hb is 6.6 today and platelets are 23. * This likely due to chemotherapy recently received. Monitor and transfuse if hemoglobin is less than 7. * patient on granix. * DVT prophylaxis; SCDs Charges/Coding Visit Charges Inpatient E&M: 52458 Subs Hosp L3
[2023-10-05] MEDS: TBO-FILGRASTIM 300 MCG/0.5 ML ML SC (10:59)
[2023-10-05] MEDS: Pantoprazole Sodium 40 MG in 0.9% Normal Saline (100mL MB+) 100 ML 330 MG IV (10:59)
[2023-10-06] VITALS (26 sets, daily range): BP systolic 106–146; BP diastolic 62–95; PULSE 77–120; RESP 15–24; TEMP 36.6–37.7; O2SAT 90–97; BMI 29.7
[2023-10-06 03:28] LABS: Absolute Lymphocyte Count 0.07 X10^3/uL (0.83-4.51); Absolute Neutrophil Count 0.1 X10^3/uL (2.0-7.7); Hemoglobin 7.9 g/dL (13.0-16.5); Lymphocyte # 0.07 X10^3/ul (0.83-4.51); Mean Corp Hgb Conc 32.9 g/dL (32-36); Mean Corpuscular Hgb 29.2 pg (27.0-32.0); Mean Corpuscular Volume 88.6 fL (80-94); Mean Platelet Vol. 9.3 fl (6.2-12.0); Monocyte# 0.01 X10^3/uL; Monocyte% 7.1 % (0-10); NRBC Flagged by Analyzer 0 % (0-5); Neutrophil # 0.06 X10^3/uL (2.7-7.7); Neutrophil % 42.9 % (47-70); POSITIVE COUNT YES; POSITIVE DIFFERENTIAL YES; POSITIVE MORPHOLOGY YES; Platelet Count 24 K/mm3 (150-450); RBC Distribution Width CV 14.6 % (11.6-14.6); RBC Distribution Width SD 46.2 fl (35.1-43.9); Red Blood Count 2.71 M/mm3 (4.6-6.2); White Blood Count 0.1 K/mm3 (4.4-11.0)
[2023-10-06 04:05] LABS: Anion Gap 5 (5-15); BUN 15 mg/dL (7-18); Chloride 105 mmol/L (98-107); Creatinine, Serum 0.62 mg/dL (0.70-1.30); EST Glomerular Filtration Rate 139 mL/min (>60); Est Glom Filt Rate - Afr Amer 169 mL/min (>60); Estimated Creatinine Clearance 154.77 ml/min; Glucose 117 mg/dL (74-106); Potassium 3.4 mmol/L (3.5-5.1); Sodium Level 140 mmol/L (136-145)
[2023-10-06] MEDS: 0.9% Saline Lock 10 ML Syringe IV (05:36)
[2023-10-06] MEDS: dilTIAZem CD 240 MG Capsule PO (08:42)
[2023-10-06] MEDS: Metoprolol(XL)Succ 100 MG Tablet PO (08:43)
[2023-10-06] MEDS: Pantoprazole Sodium 40 MG in 0.9% Normal Saline (100mL MB+) 100 ML 330 MG IV (08:44)
[2023-10-06] MEDS: Acyclovir 200 MG Capsule 400 MG PO (08:45)
--- NOTE | 2023-10-06 09:21 | PCM.PROGNOTE ---
Subjective Subjective Patient seen and examined. He had no active complaints. Review of systems is otherwise negative. His heart rate has been poorly controlled and he has been tachycardic, though this improves when he is given his medication. Wbc remains 0.1, though absolute neutrophil count has come up to 0.1 today. Objective Data Objective Data Vital Signs: Vital Signs Temp Pulse Resp BP Pulse Ox O2 Del Method O2 Flow Rate 98.5 F 113 H 23 H 118/83 H 95 Room Air 1 10/06/23 08:00 10/06/23 09:00 10/06/23 09:00 10/06/23 09:00 10/06/23 09:00 10/06/23 09:00 10/05/23 14:44 Oxygen Flow Rate (L/min) 1 Oxygen Delivery Method Room Air Weight: 219 lb 5.759 oz Body Mass Index (BMI) 29.7 Intake & Output: Intake and Output for Last 24 Hours 10/04/23 10/05/23 10/06/23 23:59 23:59 23:59 Intake Total 2320 / 2320 1728.7 / 1728.7 610 / 610 Output Total 1850 / 1850 2700 / 2700 900 / 900 Balance 470 / 470 -971.3 / -971.3 -290 / -290 Lab / Micro Data 10/06/23 03:19 10/06/23 03:19 Labs: Laboratory Results - last 24 hr 10/02/23 22:24: Crossmatch See Detail 10/05/23 05:25: Differential Comment SCANNED, Diff Path Review November, Platelet Estimate MKD 10/06/23 03:19: WBC 0.1 L*, RBC 2.71 L, Hgb 7.9 L, Hct 24.0 L, MCV 88.6, MCH 29.2, MCHC 32.9, RDW Std Deviation 46.2 H, RDW Coeff of Екатерина 14.6, Plt Count 24 L*, MPV 9.3, Immature Gran % (Auto) 0.000, Neut % (Auto) 42.9 L, Lymph % (Auto) 50.0 H, [place] % (Auto) 7.1, Eos % (Auto) 0.0, Baso % (Auto) 0.0, Absolute Neuts (auto) 0.1 L, Absolute Lymphs (auto) 0.07 L, Nucleated RBC % 0, Diff Path Review May foll, Sodium 140, Potassium 3.4 L, Chloride 105, Carbon Dioxide 30.0, Anion Gap 5, BUN 15, Creatinine 0.62 L, Estim Creat Clear Calc 154.77, Est GFR (MDRD) Af Amer 169, Est GFR (MDRD) Non-Af 139, BUN/Creatinine Ratio 24.0 H, Glucose 117 H, Calcium 8.0 L Micro: Microbiology 10/02/23 16:44 Blood Culture (Wb) - Right Hand Blood Culture - Preliminary No growth in 48 hours. 10/02/23 16:50 Urine, Clean Catch Urine Culture - Final Culture exhibits no growth. 10/02/23 16:15 Blood Culture (Wb) - Venous Blood Culture - Final Escherichia coli 10/02/23 20:17 Wound Abcess - Leg, Left Gram Stain - Final 10/02/23 20:17 Wound Abcess - Leg, Left Wound Culture - Final Escherichia coli 10/02/23 16:43 Mucosa - Nose SARS-CoV-2, Influenza & RSV (PCR) - Final Radiography Diagnostic Testing: Radiology Impression Venous Doppler Study 10/03/23 11:10 Interpretation Summary Deep veins of the left lower extremity are patent and compressible segmentally. There is no evidence of left lower extremity deep vein thrombosis. Valvular competence appears intact within the proximal deep venous system on the left . The left great saphenous vein appears patent and compressible segmentally. The right common femoral vein is patent and compressible . Ordering Physician: Leonard Green Performed By: Ronald Mann RVT Physical Exam Const alert, oriented x3, no apparent distress, average body habitus and well nourished General Appearance: cooperative HEENT normocephalic, head/scalp atraumatic, hearing grossly normal bilaterally, moist oral mucous membranes and oropharynx normal Eyes PERRL and EOMs intact bilaterally Neck no lymphadenopathy and supple Lymph Lymphatic: no lymphadenopathy noted Resp normal respiratory effort, normal air movement, no retractions, no use of accessory muscles and clear to auscultation bilaterally Cardio S1 normal heart sound, S2 normal heart sound and no murmurs Cardio Narrative: afib, rate poorly controlled Rate: tachycardic GI normal to inspection, nondistended, normoactive bowel sounds, soft to palpation, non-tender and non-distended Extremity Extremity Narrative: LLE wrapped in bandage. General Extremity: no tenderness to palpation of joints or extremities Skin Skin Narrative: LLE wrapped in bandage. Neuro oriented x3, CN's II-XII intact bilaterally, moves all extremities and no focal motor deficits Sensorium / Orientation: awake, alert, oriented to person, oriented to place and oriented to time Speech: speech normal Motor Exam: strength 5/5 throughout and general weakness Psych thought process normal, cooperative and affect normal Appearance: appropriate Assessment & Plan Assessment/Plan (1) Cellulitis and abscess of left lower extremity: (2) Neutropenic fever: PLAN: Plan #Sepsis due to LLE cellulitis and abscess s/p I&D done in the ED. Fever has resolved. Also has neutropenic fever with WBC remaining 0.1. He did have his last chemotherapy 3 days prior to admission Wound cultures growing E. coli. On pain medication. now on IV ceftriaxone #Non-Hodgkin's lymphoma on chemotherapy. last had chemotherapy 2 days prior to admission. 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 During his previous admission he had protracted pancytopenia as a result. to follow up with oncology on outpatient basis #Benign essential hypertension: on cardizem and metoprolol # History of atrial fibrillation: on cardizem and metoprolol. HR is poorly controlled will adjust meds #Pancytopenia: WBC remains 0.1 but absolute neutrophil count of has come up to 0.1 was transfused with 2 units of PRBCs, Hb today is 7.9. Hb is 6.6 today and platelets are up slightly to 24. This likely due to chemotherapy recently received. Monitor and transfuse if hemoglobin is less than 7. patient on granix. DVT prophylaxis; SCDs Charges/Coding Visit Charges Inpatient E&M: 90077 Subs Hosp L2
[2023-10-06] MEDS: TBO-FILGRASTIM 300 MCG/0.5 ML ML SC (09:26)
[2023-10-06] MEDS: Ceftriaxone 1 GM/50 ML BAG IV (09:27)
[2023-10-06] MEDS: 0.9% Normal Saline (250mL Bag) 250 ML 15 ML IV (09:27)
[2023-10-06] MEDS: Digoxin 250 MCG/ML Ampul 125 MCG IV (10:24)
[2023-10-06] MEDS: HYDROmorphone 1 MG/ML Syringe IV (10:39)
--- NOTE | 2023-10-06 12:07 | WOUNDNOTE ---
wound photo: left lower leg
--- NOTE | 2023-10-06 13:31 | CASEMGMT ---
This RN CM noted wound order in the system and that the pt is to change daily. RN CM to pt room regarding DC options with pt wound. Pt denies wanting to go to a SNF short term at this time. Pt educated about HHC (SN) to help change the dressing twice per week and the pt refused this as well. Pt states that he himself can learn how to change the dressing at home. Pt states that his will not be able to. Pt educated that he could go to the wound center once per week for dressing change and evaluation. Pt is agreeable to this. [facility] called at this time, no answer. Will call back to schedule appt for next week per pt preference. Pt RN updated with plan at this time.
[2023-10-06 13:58] LABS: Pathologist Review Reviewed
[2023-10-06 14:05] LABS: Pathologist Review Reviewed
[2023-10-06 14:09] LABS: Pathologist Review Reviewed
[2023-10-06 14:27] LABS: Pathologist Review Reviewed
[2023-10-07] VITALS (13 sets, daily range): BP systolic 110–139; BP diastolic 72–94; PULSE 93–126; RESP 16–24; TEMP 36.8–37.6; O2SAT 91–99; BMI 29.8
[2023-10-07 05:49] LABS: Absolute Lymphocyte Count 0.13 X10^3/uL (0.83-4.51); Absolute Neutrophil Count 0.1 X10^3/uL (2.0-7.7); Basophil# 0.01 X10^3/uL; Hematocrit 24.5 % (40-54); Hemoglobin 8.1 g/dL (13.0-16.5); Lymphocyte # 0.13 X10^3/ul (0.83-4.51); Mean Corp Hgb Conc 33.1 g/dL (32-36); Mean Corpuscular Hgb 29.1 pg (27.0-32.0); Mean Corpuscular Volume 88.1 fL (80-94); NRBC Flagged by Analyzer 0 % (0-5); Neutrophil # 0.06 X10^3/uL (2.7-7.7); POSITIVE COUNT YES; POSITIVE DIFFERENTIAL YES; POSITIVE MORPHOLOGY YES; RBC Distribution Width CV 14.4 % (11.6-14.6); RBC Distribution Width SD 46.5 fl (35.1-43.9); Red Blood Count 2.78 M/mm3 (4.6-6.2)
[2023-10-07 05:57] LABS: Platelet Count 23 K/mm3 (150-450)
[2023-10-07 05:58] LABS: White Blood Count 0.2 K/mm3 (4.4-11.0)
[2023-10-07 06:00] LABS: Anion Gap 5 (5-15); BUN 16 mg/dL (7-18); BUN/Creat Ratio 25.6 RATIO (10-20); Calcium,Total 7.9 mg/dL (8.5-10.1); Chloride 102 mmol/L (98-107); Creatinine, Serum 0.62 mg/dL (0.70-1.30); EST Glomerular Filtration Rate 139 mL/min (>60); Est Glom Filt Rate - Afr Amer 169 mL/min (>60); Estimated Creatinine Clearance 154.98 ml/min; Glucose 112 mg/dL (74-106); Potassium 3.6 mmol/L (3.5-5.1); Sodium Level 139 mmol/L (136-145)
--- NOTE | 2023-10-07 07:21 | CT_ITS ---
EXAM: CT ANGIOGRAPHY CHEST WITHOUT AND WITH INTRAVENOUS CONTRAST CLINICAL INDICATION: tachycardia TECHNIQUE: Helically acquired angiography images were obtained of the chest without and with intravenous contrast. This CT exam was performed using one or more of the following dose reduction techniques: automated exposure control, adjustment of the mA and/or kV according to patient size, and/or use of iterative reconstruction technique. MIP reconstructed images were created and reviewed. CONTRAST: IV 100mL Isovue-370 RADIATION DOSE: CTDIvol = 11.64 mGy, DLP = 493.95 mGy-cm COMPARISON: CTA chest with contrast 09/14/2023.. FINDINGS: PULMONARY ARTERIES: Unremarkable. Normal in caliber. No evidence of pulmonary embolism. AORTA: Few calcified plaques in the transverse thoracic aorta. No thoracic aortic aneurysm. No evidence of dissection. GREAT VESSELS OF AORTIC ARCH: Unremarkable. Normal in caliber. No evidence of dissection. LUNGS AND PLEURAL SPACES: Multiple thin-walled small cysts in the upper lobes and.. Fewer small cysts in the lower lobes. Paraseptal cysts in both lung apices, right more than left. 9 mm pulmonary nodule with spiculated borders in the posterior segment of the right upper lobe, new since 09/14/2023. 4 mm ill-defined pulmonary nodule in the right middle lobe (series 2, image 100; series 601, image 82; series 602, image 10). This is also a new finding. Minimal curvilinear subsegmental atelectases in the left posterior lung base. No pleural effusion or thickening. No pneumothorax. HEART: Few calcified plaques in the LAD branch and the first diagonal branch. No other coronary artery calcifications. Normal cardiac size. Normal pericardium. Heart size is normal. MEDIASTINUM: Unremarkable. No mediastinal or hilar adenopathy. Esophagus is unremarkable. No hiatal hernia. THYROID: Unremarkable. No thyroid lesions. BONES/JOINTS: Unremarkable. No suspicious lytic or blastic abnormality. CT/CTA Chest W/WO Contrast IMPRESSION: 1. No CTA evidence of pulmonary thromboemboli, thoracic aortic aneurysm or dissection. 2. Few calcified plaques in the proximal LAD branch and the origin of the first diagonal branch. Normal cardiac size. Normal pericardium. 3. New 9 mm noncalcified pulmonary nodule with spiculated borders in the posterior segment of the right upper lobe and new 4 mm noncalcified pulmonary nodule in the right middle lobe. These are probably inflammatory nodules since these were not present on 09/14/2023. Follow-up CT chest in one month will help clarify. 4. Thin-walled cysts in both lungs, more in the upper lobes and few paraseptal cysts in the lung apices. Electronically Signed: Kevin Tran MD at 8:38 EDT ,
[2023-10-07] MEDS: Metoprolol(XL)Succ 100 MG Tablet PO (07:47)
[2023-10-07] MEDS: Acyclovir 200 MG Capsule 400 MG PO (07:47)
[2023-10-07] MEDS: dilTIAZem CD 240 MG Capsule PO (07:48)
[2023-10-07] MEDS: TBO-FILGRASTIM 300 MCG/0.5 ML ML SC (08:49)
[2023-10-07] MEDS: Pantoprazole Sodium 40 MG in 0.9% Normal Saline (100mL MB+) 100 ML 330 MG IV (08:49)
[2023-10-07] MEDS: Ceftriaxone 1 GM/50 ML BAG IV (09:17)
--- NOTE | 2023-10-07 10:04 | PN_ITS ---
Subjective Subjective Patient seen and examined. He had no active complaints. He felt much better. He however still remains persistently tachycardic. Review of systems otherwise negative. Objective Data Objective Data Vital Signs: Vital Signs Temp Pulse Resp BP Pulse Ox O2 Del Method O2 Flow Rate 98.2 F 111 H 23 H 110/90 H 98 Room Air 1 10/07/23 08:00 10/07/23 08:00 10/07/23 08:00 10/07/23 08:00 10/07/23 08:00 10/07/23 08:00 10/05/23 14:44 Oxygen Flow Rate (L/min) 1 Oxygen Delivery Method Room Air Weight: 220 lb 0.341 oz Body Mass Index (BMI) 29.8 Intake & Output: Intake and Output for Last 24 Hours 10/05/23 10/06/23 10/07/23 23:59 23:59 23:59 Intake Total 1728.7 / 1728.7 964.5 / 964.5 160 / 160 Output Total 2700 / 2700 1850 / 1850 400 / 400 Balance -971.3 / -971.3 -885.5 / -885.5 -240 / -240 Lab / Micro Data 10/07/23 05:35 10/07/23 05:35 Labs: Laboratory Results - last 24 hr 10/02/23 16:17: Diff Path Review Reviewed 10/03/23 03:26: Diff Path Review Reviewed 10/04/23 04:30: Diff Path Review Reviewed 10/05/23 05:25: Diff Path Review Reviewed 10/07/23 05:35: WBC 0.2 L*, RBC 2.78 L, Hgb 8.1 L, Hct 24.5 L, MCV 88.1, MCH 29.1, MCHC 33.1, RDW Std Deviation 46.5 H, RDW Coeff of Екатерина 14.4, Plt Count 23 L*, Immature Gran % (Auto) 0.000, Neut % (Auto) 30.0 L, Lymph % (Auto) 65.0 H, [place] % (Auto) 0.0, Eos % (Auto) 0.0, Baso % (Auto) 5.0 H, Absolute Neuts (auto) 0.1 L, Absolute Lymphs (auto) 0.13 L, Nucleated RBC % 0, Sodium 139, Potassium 3.6, Chloride 102, Carbon Dioxide 32.0, Anion Gap 5, BUN 16, Creatinine 0.62 L, Estim Creat Clear Calc 154.98, Est GFR (MDRD) Af Amer 169, Est GFR (MDRD) Non-Af 139, BUN/Creatinine Ratio 25.6 H, Glucose 112 H, Calcium 7.9 L Micro: Microbiology 10/02/23 16:44 Blood Culture (Wb) - Right Hand Blood Culture - Preliminary No growth in 48 hours. 10/02/23 16:50 Urine, Clean Catch Urine Culture - Final Culture exhibits no growth. 10/02/23 16:15 Blood Culture (Wb) - Venous Blood Culture - Final Escherichia coli 10/02/23 20:17 Wound Abcess - Leg, Left Gram Stain - Final 10/02/23 20:17 Wound Abcess - Leg, Left Wound Culture - Final Escherichia coli 10/02/23 16:43 Mucosa - Nose SARS-CoV-2, Influenza & RSV (PCR) - Final Radiography Diagnostic Testing: Radiology Impression Chest CTA 10/07/23 07:21 IMPRESSION: 1. No CTA evidence of pulmonary thromboemboli, thoracic aortic aneurysm or dissection. 2. Few calcified plaques in the proximal LAD branch and the origin of the first diagonal branch. Normal cardiac size. Normal pericardium. 3. New 9 mm noncalcified pulmonary nodule with spiculated borders in the posterior segment of the right upper lobe and new 4 mm noncalcified pulmonary nodule in the right middle lobe. These are probably inflammatory nodules since these were not present on 09/14/2023. Follow-up CT chest in one month will help clarify. 4. Thin-walled cysts in both lungs, more in the upper lobes and few paraseptal cysts in the lung apices. Electronically Signed: Kevin Tran MD at 8:38 EDT , Physical Exam Const alert, oriented x3, no apparent distress, average body habitus and well nourished General Appearance: cooperative HEENT normocephalic, head/scalp atraumatic, hearing grossly normal bilaterally, moist oral mucous membranes and oropharynx normal Eyes PERRL and EOMs intact bilaterally Neck no lymphadenopathy and supple Lymph Lymphatic: no lymphadenopathy noted Resp normal respiratory effort, normal air movement, no retractions, no use of accessory muscles and clear to auscultation bilaterally Cardio S1 normal heart sound, S2 normal heart sound and no murmurs Cardio Narrative: afib, rate poorly controlled Rate: tachycardic GI normal to inspection, nondistended, normoactive bowel sounds, soft to palpation, non-tender and non-distended Extremity Extremity Narrative: LLE wrapped in bandage. General Extremity: no tenderness to palpation of joints or extremities Skin Skin Narrative: LLE wrapped in bandage. Neuro oriented x3, CN's II-XII intact bilaterally, moves all extremities and no focal motor deficits Sensorium / Orientation: awake, alert, oriented to person, oriented to place and oriented to time Speech: speech normal Motor Exam: strength 5/5 throughout and general weakness Psych thought process normal, cooperative and affect normal Appearance: appropriate Assessment & Plan Assessment/Plan (1) Cellulitis and abscess of left lower extremity: (2) Neutropenic fever: PLAN: Plan #Sepsis due to LLE cellulitis and abscess * s/p I&D done in the ED. * Fever has resolved. * Fever has resolved. He did have his last chemotherapy 3 days prior to admission * Wound cultures growing E. coli. * On pain medication. * on IV ceftriaxone * #Non-Hodgkin's lymphoma * on chemotherapy. * last had chemotherapy 2 days prior to admission. * follow with chemotherapy on outpatient basis * Thought to have metastasized to his liver and has also significantly infiltrated his bone marrow. During his previous admission he had protracted pancytopenia as a result. * to follow up with oncology on outpatient basis * #Benign essential hypertension: on cardizem and metoprolol # History of atrial fibrillation: * on cardizem and metoprolol. HR is poorly controlled * Cardizem and switch from p.o. Cardizem to 40 mg daily to 180 milligram twice d aily. Continue metoprolol XL 100 mg daily. * #Pancytopenia: * WBC is up to 0.2 today from 0.1 yesterday. Absolute neutrophil count has come up to 0.1 * was transfused with 2 units of PRBCs, Hb today is 8.1 platelets are 23. * This likely due to chemotherapy recently received. Monitor and transfuse if hemoglobin is less than 7. * patient on granix. * DVT prophylaxis; SCDs Disposition: Anticipate discharge home tomorrow if heart rate is better controlled. Charges/Coding Visit Charges Inpatient E&M: 82199 Subs Hosp L2
--- NOTE | 2023-10-07 10:27 | CASEMGMT ---
Addendum entered by Kelvin Levy 10/07/23 10:37: Call back from Maureen at this time and she states they can see the pt next Thursday at either 8,9, or 10am. RN CM to pt room at this time and the pt prefers 1000. Pt appt confirmed for Thu (10/13) at 1000. Discharge plan updated. Original Note: TIM ST to pt room at this time regarding wound care. Pt states that he still does not want HHC set up. Pt states that he is still interested in going to the wound center once per week. 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 Dolly, wound nurse updated. TC to the wound center at this time and Maureen states that she will call this RN CM back to see if they accept the pt insurance.
[2023-10-07] MEDS: dilTIAZem CD 180 MG Capsule PO (20:42)
[2023-10-08 03:15] VITALS: BP 116/77; PULSE 79; RESP 18; TEMP 36.8; O2SAT 93
[2023-10-08 03:48] LABS: Absolute Lymphocyte Count 0.21 X10^3/uL (0.83-4.51); Absolute Neutrophil Count 0.1 X10^3/uL (2.0-7.7); Basophil# 0.01 X10^3/uL; Basophil% 3.4 % (0-1); Hematocrit 23.4 % (40-54); Hemoglobin 7.7 g/dL (13.0-16.5); Lymphocyte # 0.21 X10^3/ul (0.83-4.51); Lymphocyte % 72.4 % (19-41); Mean Corp Hgb Conc 32.9 g/dL (32-36); Mean Corpuscular Hgb 28.9 pg (27.0-32.0); Monocyte# 0.01 X10^3/uL; Monocyte% 3.4 % (0-10); NRBC Flagged by Analyzer 0 % (0-5); Neutrophil # 0.06 X10^3/uL (2.7-7.7); Neutrophil % 20.8 % (47-70); POSITIVE COUNT YES; POSITIVE DIFFERENTIAL YES; POSITIVE MORPHOLOGY YES; RBC Distribution Width CV 14.5 % (11.6-14.6); Red Blood Count 2.66 M/mm3 (4.6-6.2)
[2023-10-08 03:56] LABS: Differential Indicated SCAN CRITERIA MET; Platelet Count 27 K/mm3 (150-450); White Blood Count 0.3 K/mm3 (4.4-11.0)
[2023-10-08 04:01] LABS: Anion Gap 3 (5-15); BUN 16 mg/dL (7-18); BUN/Creat Ratio 25.2 RATIO (10-20); Calcium,Total 8.1 mg/dL (8.5-10.1); Chloride 105 mmol/L (98-107); Creatinine, Serum 0.64 mg/dL (0.70-1.30); EST Glomerular Filtration Rate 137 mL/min (>60); Est Glom Filt Rate - Afr Amer 166 mL/min (>60); Estimated Creatinine Clearance 150.14 ml/min; Glucose 118 mg/dL (74-106); Potassium 3.7 mmol/L (3.5-5.1); Sodium Level 140 mmol/L (136-145)
[2023-10-08 05:12] VITALS: BMI 28.4
[2023-10-08 06:47] LABS: Platelet Estimate MKD DEC (ADEQ)
[2023-10-08 08:00] VITALS: BP 130/74; PULSE 84; RESP 19; TEMP 36.8; O2SAT 93
[2023-10-08 09:15] VITALS: BP 120/77; PULSE 85; RESP 18; TEMP 36.8; O2SAT 96
[2023-10-08 09:25] LABS: Pathologist Review Reviewed
[2023-10-08 09:36] LABS: Pathologist Review Reviewed
[2023-10-08] MEDS: Pantoprazole Sodium 40 MG in 0.9% Normal Saline (100mL MB+) 100 ML 330 MG IV (09:39)
[2023-10-08] MEDS: Acyclovir 200 MG Capsule 400 MG PO (09:43)
[2023-10-08 09:44] VITALS: BP 120/77; PULSE 85
[2023-10-08] MEDS: Metoprolol(XL)Succ 100 MG Tablet PO (09:44)
[2023-10-08] MEDS: dilTIAZem CD 180 MG Capsule PO (09:44)
[2023-10-08] MEDS: TBO-FILGRASTIM 300 MCG/0.5 ML ML SC (09:46)
[2023-10-08] MEDS: Ceftriaxone 1 GM/50 ML BAG IV (10:04)
--- NOTE | 2023-10-08 10:08 | PCM.DC.SUM ---
Providers Date of Admission: 10/02/23 Date of Discharge: 10/08/23 Primary Care Physician: Dr. Jaquelin Dexter MD Consultations 10/02/23 22:06 Consult: Health Safety Specialist / Pulmonary Medicine Routine Consulting Provider: Intensivists/Pulmonary Med Reason for Consult: Sepsis EMERGENT Consult: No Notified: No Date Notified: 10/02/23 Time Notified: 21:10 10/03/23 09:07 Consult: Health Safety Specialist / Pulmonary Medicine Routine Consulting Provider: Intensivists/Pulmonary Med Reason for Consult: sepsis EMERGENT Consult: No Notified: Yes Date Notified: 10/03/23 Time Notified: 09:07 Method of Notification: Verbal Method of Consult:: Telemedicine Comments:: ashley 10/05/23 07:27 Consult: Onc/Wound/skin former Routine Comment: Reason for Consult:: leg wound Reason For Visit: SEPSIS WITH NEUTROPENIC FEVER DUE TO LLE ABSCESS Diagnosis Discharge Diagnosis (1) Cellulitis and abscess of left lower extremity: Status: Acute Code(s): L03.116 - Cellulitis of left lower limb; L02.416 - Cutaneous abscess of left lower limb (2) Neutropenic fever: Status: Acute Code(s): D70.9 - Neutropenia, unspecified; R50.81 - Fever presenting with conditions classified elsewhere Plan #Sepsis due to LLE cellulitis and abscess s/p I&D done in the ED. Fever has resolved. Fever has resolved. He did have his last chemotherapy 3 days prior to admission Wound cultures growing E. coli. On pain medication. on IV ceftriaxone #Non-Hodgkin's lymphoma on chemotherapy. last had chemotherapy 2 days prior to admission. 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 During his previous admission he had protracted pancytopenia as a result. to follow up with oncology on outpatient basis #Benign essential hypertension: on cardizem and metoprolol # History of atrial fibrillation: on cardizem and metoprolol. HR is poorly controlled Cardizem and switch from p.o. Cardizem to 40 mg daily to 180 milligram twice daily. Continue metoprolol XL 100 mg daily. #Pancytopenia: WBC is up to 0.2 today from 0.1 yesterday. Absolute neutrophil count has come up to 0.1 was transfused with 2 units of PRBCs, Hb today is 8.1 platelets are 23. This likely due to chemotherapy recently received. Monitor and transfuse if hemoglobin is less than 7. patient on granix. DVT prophylaxis; SCDs Disposition: Anticipate discharge home tomorrow if heart rate is better controlled. Medications at Discharge Home Medications acyclovir 400 mg tablet 400 mg PO DAILY cold sore 09/14/23 metoprolol succinate 100 mg tablet,extended release 24 hr 100 mg PO DAILY 1 month #30 tabs 09/21/23 cephalexin 250 mg capsule 250 mg PO 4X/DAY 10/02/23 cefdinir 300 mg capsule 300 mg PO BID #14 caps 10/08/23 diltiazem HCl 180 mg capsule,extended release 24 hr 180 mg PO Q12 #60 caps 10/08/23 Hospital Course Operations None Procedures None Summary of Care Provided Minutes Spent on Discharge: 55 Hospital Course: Patient is a 58-year-old male with a past medical history as outlined was admitted through the ED on 10/02/2023 with a complaint of fever and left lower extremity redness and swelling. His symptoms had began 3 weeks prior to his admission when he developed a minor infection over the lateral aspect of his left calf. Symptoms had worsened and he subsequently went to see his oncologist and was noted to have an elevated fever of 101 Fahrenheit. He was started on oral Keflex for presumed cellulitis of the left lower extremity. However his symptoms worsened and the swelling and redness worsened. He also had tachycardia with his heart rate going up into the 150s. The burning and redness over his left lower extremity also worsened so he came into the ED for evaluation. On admission he was found to have leukopenia and thrombocytopenia with a WBC of 0.1 and platelets of 23. Of note patient had been admitted previously for sepsis due to febrile neutropenia and had also had pancytopenia then due to chemotherapy from the non-Hodgkin's lymphoma. Prior to this admission he had received chemotherapy about 2 days prior and had received Neulasta. He was admitted to the ICU and managed for sepsis due to abscess of the left lower extremity. Left lower extremity CT done showed abscess. He had I&D done in the ED. He was started on IV vancomycin and Zosyn. Wound cultures grew E. coli which was pansensitive. Patient was started on Granix during this admission on account of the severe pancytopenia. His white cell count slowly came up and was 0.3 at time of discharge. Absolute neutrophil count had gone up from 0-0.1. This hospitalist did call his primary oncologist Dr. Josue to see if he wanted patient discharged with subcu Granix. However per his oncologist, patient was to follow-up the next 10/12/2023 in the clinic and he will have his CBC checked then to see where his platelets and WBC were. Patient remained stable and was discharged home on 10/08/2023. He was discharged on p.o. cefdinir 100 mg twice daily for 5 days. Of note, patient's hospital course was complicated by persistent tachycardia. He did have a history of A-fib. CT of the chest done was negative for PE. His Cardizem was switched from 240 mg daily to 180 mg twice daily. His heart rate subsequently became controlled. He was continued on his dose of metoprolol XL 100 mg daily. He is follow-up with his primary care doctor and with oncology within 1 week. Patient seen and examined prior to discharge. He had no complaints and had an uneventful night. Review of systems otherwise negative. Labs and vitals reviewed. Home medication reviewed and reconciled. Physical Exam Const alert, oriented x3, no apparent distress, average body habitus and well nourished General Appearance: cooperative, comfortable and well kempt HEENT normocephalic, head/scalp atraumatic, hearing grossly normal bilaterally, moist oral mucous membranes and oropharynx normal Eyes PERRL and EOMs intact bilaterally Neck no lymphadenopathy and supple Lymph Lymphatic: no lymphadenopathy noted Resp normal respiratory effort, normal air movement, no retractions, no use of accessory muscles and clear to auscultation bilaterally Cardio regular rate, regular rhythm, S1 normal heart sound, S2 normal heart sound and no murmurs Cardio Narrative: afib, rate poorly controlled Rate: tachycardic GI normal to inspection, nondistended, normoactive bowel sounds, soft to palpation, non-tender and non-distended Extremity Extremity Narrative: LLE wrapped in bandage. General Extremity: no tenderness to palpation of joints or extremities Skin Skin Narrative: LLE wrapped in bandage. Neuro oriented x3, CN's II-XII intact bilaterally, moves all extremities and no focal motor deficits Sensorium / Orientation: awake, alert, oriented to person, oriented to place and oriented to time Speech: speech normal Motor Exam: strength 5/5 throughout and general weakness Psych thought process normal, cooperative and affect normal Appearance: appropriate Weight / BMI Weight Weight: 209 lb 14.081 oz Body Mass Index (BMI) 28.4 ABG / Lab / Microbiology Data 10/08/23 03:35 10/08/23 03:35 Laboratory: Laboratory Results - last 24 hr 10/06/23 03:19: Diff Path Review Reviewed 10/07/23 05:35: Diff Path Review Reviewed 10/08/23 03:35: WBC 0.3 L*, RBC 2.66 L, Hgb 7.7 L, Hct 23.4 L, MCV 88.0, MCH 28.9, MCHC 32.9, RDW Std Deviation 46.0 H, RDW Coeff of Екатерина 14.5, Plt Count 27 L*, MPV 10.0, Immature Gran % (Auto) 0.000, Neut % (Auto) 20.8 L, Lymph % (Auto) 72.4 H, [place] % (Auto) 3.4, Eos % (Auto) 0.0, Baso % (Auto) 3.4 H, Absolute Neuts (auto) 0.1 L, Absolute Lymphs (auto) 0.21 L, Nucleated RBC % 0, Diff Path Review May foll, Platelet Estimate MKD DEC, Sodium 140, Potassium 3.7, Chloride 105, Carbon Dioxide 32.0, Anion Gap 3 L, BUN 16, Creatinine 0.64 L, Estim Creat Clear Calc 150.14, Est GFR (MDRD) Af Amer 166, Est GFR (MDRD) Non-Af 137, BUN/Creatinine Ratio 25.2 H, Glucose 118 H, Calcium 8.1 L Microbiology: Microbiology 10/02/23 16:44 Blood Culture (Wb) - Right Hand Blood Culture - Final No growth in 5 days. 10/02/23 16:50 Urine, Clean Catch Urine Culture - Final Culture exhibits no growth. 10/02/23 16:15 Blood Culture (Wb) - Venous Blood Culture - Final Escherichia coli 10/02/23 20:17 Wound Abcess - Leg, Left Gram Stain - Final 10/02/23 20:17 Wound Abcess - Leg, Left Wound Culture - Final Escherichia coli 10/02/23 16:43 Mucosa - Nose SARS-CoV-2, Influenza & RSV (PCR) - Final D/C Instructions Discharge Diet: Low fat / Low cholesterol Discharge Activity: Return to Normal Activity Weight Bearing Status: Weight bearing as tolerated Call your doctor if you observe: Fever of 101 or Higher, Shortness of breath, Swelling in the ankles, Chest pain and Increased palpitations (irregular heartbeat) Meaningful Use Info Meaningful Use Diagnoses (Choose all that apply): None applicable Discharge Plan Admission Admit Date/Time: 10/02/23 21:09 Primary Reason for Your Visit: cellulitis Attending Provider: Chiara Burger Primary Care Provider: Jaquelin Dexter Consulting Providers: Morgan Blunt Instructions Patient Instructions: Cellulitis, Cellulitis Dc, ED Abscess Incision And ... Discharge Orders/Prescriptions Prescriptions: New diltiazem HCl 180 mg Capsule,Extended Release 24hr 180 mg PO Q12 Qty: 60 2RF cefdinir 300 mg capsule 300 mg PO BID Qty: 14 0RF Continued acyclovir 400 mg tablet 400 mg PO DAILY Patient Comments: TAKE 1 TABLET BY MOUTH TWICE A DAY metoprolol succinate 100 mg tablet extended release 24 hr 100 mg PO DAILY 30 Days Qty: 30 3RF cephalexin 250 mg capsule 250 mg PO 4X/DAY Discontinued diltiazem HCl 240 mg Capsule,Extended Release 24hr 240 mg PO Q24H Referrals / Follow Up: Dima Josue MD [Med Staff - Active Staff] - Within 1 Week Jaquelin Dexter MD [Primary Care Provider] - Within 1 Week Disposition Disposition (needs filled in before D/C Order can be placed): Home, Self Care Charges/Coding Visit Charges Inpatient E&M: 78634 Disch Hosp >30min
[2023-10-08 10:41] VITALS: BP 120/77; PULSE 85; RESP 18; TEMP 36.8; O2SAT 96
--- NOTE | 2023-10-08 11:18 | CASEMGMT ---
Addendum entered by Kelvin Levy 10/08/23 11:44: Prescription for wound supplies returned by Dr. Burger. Copy filed in pt chart. Original copy given to the pt RN. Pt RN at bedside now for DC. Original Note: Pt DC order placed. Dolly, Wound Care Nurse just got done seeing the pt. RN CM to pt room. Pt states that he still feels safe and comfortable DCing home with his wound. Pt able to care for this per himself and has enough supplies for now. Dolly provided Rx for more wound supplies. Rx tubed to Dr. Burger for signing, awaiting return. Pt RN updated that the pt will be good for DC once Dr. Burger tubes back the script.
[2023-10-09 09:31] LABS: Pathologist Review Reviewed
== END 2023-10-08 11:00 | disposition home or self-care (01) | DRG 602 ==
LOC: ED 20:30 → ICU 21:40
PROVIDERS: Nurse Practitioner; Admitting Provider Internal Medicine; Emergency Provider Emergency Medicine; PCP Internal Medicine; Visit Provider Student in an Organized Health Care Education/Training Program
DX: L02.416 Cutaneous abscess of left lower limb (principal); D61.810 Antineoplastic chemotherapy induced pancytopenia; I13.0 Hypertensive heart and chronic kidney disease with heart failure and stage 1 through stage 4 chronic kidney disease, or unspecified chronic kidney disease; I50.30 Unspecified diastolic (congestive) heart failure; C85.90 Non-Hodgkin lymphoma, unspecified, unspecified site; N39.0 Urinary tract infection, site not specified; I27.20 Pulmonary hypertension, unspecified; N18.30 Chronic kidney disease, stage 3 unspecified; I48.91 Unspecified atrial fibrillation; L03.116 Cellulitis of left lower limb; R50.81 Fever presenting with conditions classified elsewhere; E66.3 Overweight; T45.1X5A Adverse effect of antineoplastic and immunosuppressive drugs, initial encounter; Z68.29 Body mass index [BMI] 29.0-29.9, adult; Z92.21 Personal history of antineoplastic chemotherapy; Z87.891 Personal history of nicotine dependence
CPT/HCPCS: 71045; 71275; 73701; 80048; 80053; 80202; 81001; 82550; 83605; 84484; 85025; 85610; 85730; 86850; 86900; 86901; 86920; 87040; 87070; 87077; 87086; 87186; 87205; 87631; 93005; 93971; 97802; 99285; 99406; J2185; J7030; J7040; J7050; P9016; Q9967; A4216; J1447

== ENCOUNTER 2023-10-14 09:50 | Outpatient (RCR) | payer OTHER, SELFPAY ==
[2023-10-14 10:12] VITALS: BP 124/49; PULSE 76; RESP 18; TEMP 35.2; BMI 61.2
--- NOTE | 2023-10-14 11:27 | PCM.WC.HP ---
History of Present Illness Date of Service: 10/14/23 Chief Complaint: Follow-up on an nonhealing I&D done in the hospital on his left lower leg. History of Wound: 58-year-old white male with an open wound on his left lower leg developing after he had developed cellulitis after his last chemo over a month ago. It then developed into a boil that was I&D in the emergency room. They did do cultures that were rare patient was started on doxycycline and he is packing it with iodoform gauze. No odor is noted some erythema around the edges leg is swollen with a lot of tissue along around the edges of the wound also. He is currently battling leukemia and non-Hodgkin's lymphoma. [facility] Medical History Anemia Chronic kidney disease (CKD) Contact with and (suspected) exposure to other viral communicable diseases Hypersplenism Hypertension Leukopenia Near syncope (09/2019) Neutropenia Neutropenic fever Non Hodgkin's lymphoma Non Hodgkin's lymphoma Obesity Pancytopenia Pancytopenia Paroxysmal supraventricular tachycardia (11/27/19) Thrombocytopenia Thrombocytopenia Thrombocytopenia due to drugs Tobacco abuse counseling Home Medications acyclovir 400 mg tablet 400 mg PO DAILY cold sore 09/14/23 [History Last Taken 09/14/23] metoprolol succinate 100 mg tablet,extended release 24 hr 100 mg PO DAILY 1 month #30 tabs 09/21/23 [Rx Last Taken Unknown] cephalexin 250 mg capsule 250 mg PO 4X/DAY 10/02/23 [History Last Taken Unknown] cefdinir 300 mg capsule 300 mg PO BID #14 caps 10/08/23 [Rx Last Taken Unknown] diltiazem HCl 180 mg capsule,extended release 24 hr 180 mg PO Q12 #60 caps 10/08/23 [Rx Last Taken Unknown] Allergy/AdvReac Type Severity Reaction Status Date / Time ibrutinib [From Imbruvica] Allergy dyspnea/diz Verified 10/14/23 10:11 zness rituximab Allergy Shortness Verified 10/14/23 10:11 of breath Surgical History History of bone marrow biopsy Social History household members: spouse Smoking Status: Former smoker ROS ROS Narrative Full 12 point ROS completed and neg unless stated in HPI above Vital Signs Vital Signs Vital Signs: 10/14/23 10:12 Temperature 95.3 F L Temperature Source Temporal Pulse Rate 76 Respiratory Rate 18 Blood Pressure 124/49 H Blood Pressure Mean 74 Blood Pressure Source Monitor Blood Pressure Position Semi-Fowlers Blood Pressure Location Left Arm Oxygen Delivery Method Room Air Weight Weight: 451 lb 15.162 oz Body Mass Index (BMI) 61.2 Physical Exam Const alert, oriented x3, no apparent distress, average body habitus and well nourished General Appearance: cooperative, comfortable and well kempt HEENT normocephalic, head/scalp atraumatic, hearing grossly normal bilaterally, moist oral mucous membranes and oropharynx normal Eyes PERRL and EOMs intact bilaterally Neck no lymphadenopathy and supple Lymph Lymphatic: no lymphadenopathy noted Resp normal respiratory effort, normal air movement, no retractions, no use of accessory muscles and clear to auscultation bilaterally Cardio regular rate, regular rhythm, S1 normal heart sound, S2 normal heart sound and no murmurs Cardio Narrative: afib, rate poorly controlled Rate: tachycardic GI normal to inspection, nondistended, normoactive bowel sounds, soft to palpation, non-tender and non-distended Extremity Extremity Narrative: LLE wrapped in bandage. General Extremity: no tenderness to palpation of joints or extremities Skin Skin Narrative: LLE wrapped in bandage. Neuro oriented x3, CN's II-XII intact bilaterally, moves all extremities and no focal motor deficits Sensorium / Orientation: awake, alert, oriented to person, oriented to place and oriented to time Speech: speech normal Motor Exam: strength 5/5 throughout and general weakness Psych thought process normal, cooperative and affect normal Appearance: appropriate Debridement Note Debridement Note Wound debrided: Left lower leg wound nonhealing from I&D Type of Debridement: Excisional debridement Anesthesia Used: 5% Lidocaine Gel Depth: Down to and including healthy tissue and in the subcutaneous layer Percentage of wound debrided: 100 Instrument Used: 5mm curette Tissue Removed: Fibrin devitalized tissue slough Severity: Fat Layer Exposed Amount of bleeding with debridement: Mild Bleeding Controlled with: Compression and gauze Post-Debridement Measurements and Additional Note: Post-Debridement Measurements/Treatment WC - Nurse 1 - General Ulcer Assessment Start: 03/27/24 10:10 Freq: Status: Active Protocol: WC.LOWEXT Activity Type Activity Date Activity User E-sign Co-sign Detail Recorded Client Recorded Date Recorded By Document 10/14/23 10:12 KW Desktop 10/14/23 10:24 KW 10/14/23 10:12 WC - Today's Visit Information Type of service Initial Visit Arrival Mode Ambulatory Patient Identification Verified (Name & Yes ) Height and Weight Height 6 ft Weight 451 lb 15.162 oz Weight in Pounds 451.9 lbs Weight Measurement Method Estimated by Patient Body Mass Index (BMI) 61.2 BMI Classification Obese BSA - María 3.01 Vital Signs Temperature (97.8 F-99.1 F) 95.3 F L Temperature Source Temporal Pulse Rate (60-100) 76 Pulse Location Monitor Respiratory Rate (12-18) 18 Respiratory rate source Observation Oxygen Delivery Method Room Air Blood Pressure (90/60-120/80) 124/49 H Blood Pressure Mean 74 Source Monitor Position Semi-Fowlers Blood Pressure Location Left Arm History Since Last Visit- (Skip if this is Patient's initial visit) Left Footwear Regular Shoe Right Footwear Regular Shoe Pain Scale: 0-10 Numeric Is Patient Pain Free? Yes Lower Extremity Assessment/ Foot Assessment/ Toe Nail Assessment Right -Posterior Tibial Doppler Multiphasic -Dorsalis Pedis Doppler Multiphasic -Extremity Color Normal -Hair Growth on Legs Yes -Hair Growth on Toes Yes Left -Posterior Tibial Doppler Multiphasic -Dorsalis Pedis Doppler Multiphasic -Extremity Color Hemosiderin -Hair Growth on Legs No -Hair Growth on Toes No -Thick No -Discolored No -Deformed No -Improper Length & Hygeine No Communication Assessment Preferred language Vietnamese Able to Read Yes Able to Write Yes Communication Tools None Caregiver Communication Skills No Impairment Impairment Right Hearing Abillity Normal Left Hearing Abillity Normal Visual Assistive Devices Glasses Teaching Assessment Preferences Verbal,Written, Demonstration Barriers to Learning None Readiness To Learn Excellent Willingness to Engage in Self Management High Activies Readiness to Engage in Self Management High Activities Anxiety Level Calm Cooperation Cooperative Perception Coherent Interest in Health Problem Asks Questions Education Importance Acknowledges Need Does Patient Smoke tobacco or other No substances Smoking Status Former smoker Is Patient Diabetic No Culture/Buddhist/Botany Teacher Cultural/Buddhist Needs that may affect No Treatment Plan Would you allow our hospital machinist bench to No meet you for the purpose of spiritual/ emotional support? Botany Teacher to contact place of restoration No WC - Nurse 1 - General Ulcer Measurement Start: 10/14/23 10:10 Freq: Status: Active Protocol: Activity Type Activity Date Activity User E-sign Co-sign Detail Recorded Client Recorded Date Recorded By Document 10/14/23 10:12 KW Desktop 10/14/23 10:24 KW 10/14/23 10:12 Wound Center Nurse 1 #1 LT LAT LEG -Current Size (cm) - Length 2.6 -Current Size (cm) - Width 1 -Current Size (cm) - Depth 1.5 -Total Square Cm 2.6 -Date of Last Picture (Recall this 10/14/23 field) -Photo Taken Yes -Undermining/Tunneling Yes -Undermining/Tunneling Starts (O'clock 7 ) -Undermining/Tunneling Ends (O'clock) 3 -Maximum Distance (cm) 1.5 -Exudate Amt Small -Exudate Type Serosanguineous -Wound Margin Distinct, Outline Attached -Granulation Amt Small (1-33%) -Granulation Quality New Site -Necrosis Amt Large (67-100%) -Necrotic Tissue Type Adherent Slough -Texture ([place]-wound Skin Appearance) Assessed, Localized Edema -Moisture ([place]-wound Skin Appearance) Assessed -Color ([place]-wound Skin Appearance) Assessed, Hemosiderin Staining -Temperature ([place]-wound Skin No Abnormality Appearance) (Pt Warm) -Tenderness on Palpation ([place]-wound No Skin Appearance) -Ulcer Cleansing Soap and Water -Anesthetic Used 5% Lidocaine Gel Right Calf (cm) 36.5 Right Ankle (cm) 21.5 Left Calf (cm) 39.8 Left Ankle (cm) 27 WC - Nurse 2 - General Ulcer CM Notes Start: 10/14/23 10:10 Freq: Status: Active Protocol: Activity Type Activity Date Activity User E-sign Co-sign Detail Recorded Client Recorded Date Recorded By Document 10/14/23 10:37 MW Desktop 10/14/23 10:48 MW 10/14/23 10:37 Wound Center Nurse 2 #1 LT LAT LEG -Time 10:37 -Correct Patient Yes -Correct Side, Site, Position Yes -Correct Procedure Yes -Procedure Performed Yes -Type of Procedure Debridement -Clinical Debridement Muscle / Fascia -Tissue Removed Muscle,Fascia -Post Debridement (cm) - Length 2.8 -Post Debridement (cm) - Width 1.3 -Post Debridement (cm) - Depth 1.7 -Total Square (Post) (cm) 3.64 -Area of Debridement (cm) - Length 2.8 -Area of Debridement (cm) - Width 1.3 -Total Square (Area) (cm) 3.64 -Tunneling No -Undermining/Tunneling No -Circular Undermining No -Wound/Ulcer Outcome Not Healed -Ulcer Cleansing Rinsed/ Irrigated with Saline -Foul Odor after Cleansing No -Bioengineered Tissue No -Bleeding Controlled with Pressure -Treatment Response Procedure Tolerated Well -Offloading No -Debridement - Muscle / Fascia, 1st Yes 20sq cm Pain Scale: 0-10 Numeric Is Patient Pain Free? Yes - Nurse 3 - General Ulcer D/C NN Start: 10/14/23 10:10 Freq: Status: Active Protocol: Activity Type Activity Date Activity User E-sign Co-sign Detail Recorded Client Recorded Date Recorded By Document 10/14/23 10:53 KW Desktop 10/14/23 10:54 KW 10/14/23 10:53 Wound Care Center Nurse 3 #1 LT LAT LEG -Primary Dressing Applied Fibracol Plus 4x4 -Primary Dressing Covered/Secured with Dry Gauze & Roll Gauze, Secured with Tape -Fibracol Plus 4x4 1 Left -Tubular Bandage Double Layer -Size of Tubigrip Used Size E -Size E ($) 2 Pain Scale: 0-10 Numeric Is Patient Pain Free? Yes WC - Visit Discharge Discharge Condition Stable Ambulatory Status Ambulatory Transportation Private Auto Medication Reconcilliation completed & No provided to patient/care provider Clinical Summary of Care Provided Yes Assessment/Plan Assessment/Plan (1) Pain in left lower leg: CODE(S): M79.662 - Pain in left lower leg (2) Nonhealing surgical wound: CODE(S): T81.89XA - Other complications of procedures, not elsewhere classified, initial encounter QUALIFIERS: Encounter type: initial encounter Qualified Code(s): T81.89XA - Other complications of procedures, not elsewhere classified, initial encounter PLAN: Wash left lower leg with antibacterial soap and water pat dry pack wound with Fibracol moistened with Adaptic and absorbent dressing over top. Ordered a wound VAC be set at 125 mmHg. Patient is to get the battery charged before he arrives. Obtain wound cultures just to make sure there is nothing growing in is that he is on the right antibiotic at this point we will call with results (3) Infected wound: CODE(S): T14.8XXA - Other injury of unspecified body region, initial encounter; L08.9 - Local infection of the skin and subcutaneous tissue, unspecified (4) Edema of left lower leg: CODE(S): R60.0 - Localized edema
--- NOTE | 2023-10-16 12:14 | WC ---
ATB order called into [facility] pharmacy for pt per Alicia's orders. Ciprofloxacin 500mg 1 PO BID for 14 days, dispense 28 tabs. Spoke with pt, appreciative for the notification; no questions or concerns at this time.
--- NOTE | 2023-10-23 11:18 | WC ---
3.27.24 LT LAT LEG INITIAL
== END 2023-10-18 23:59 | disposition home or self-care (01) ==
LOC: WC 09:50
PROVIDERS: PCP Internal Medicine; Referring Provider Student in an Organized Health Care Education/Training Program; Visit Provider Nurse Practitioner
DX: M79.662 Pain in left lower leg (principal); C85.90 Non-Hodgkin lymphoma, unspecified, unspecified site; T81.89XA Other complications of procedures, not elsewhere classified, initial encounter; L02.92 Furuncle, unspecified; I12.9 Hypertensive chronic kidney disease with stage 1 through stage 4 chronic kidney disease, or unspecified chronic kidney disease; N18.9 Chronic kidney disease, unspecified; R60.0 Localized edema; Z87.891 Personal history of nicotine dependence
CPT/HCPCS: 11043; 87070; 87075; 87077; 87186; 87205; 99203; G0463

== ENCOUNTER 2023-10-16 08:49 | Outpatient (CLI) | payer OTHER, SELFPAY ==
[2023-10-16 09:05] VITALS: BP 98/51; PULSE 73; RESP 16; TEMP 37.1; O2SAT 99; BMI 27.6
[2023-10-16] MEDS: 0.9% NaCl VAD Flush IV (09:19)
[2023-10-16] MEDS: 0.9% Normal Saline (500mL Bag) 500 ML 15 ML IV (09:24)
[2023-10-16] MEDS: Acetaminophen 325 MG Tablet 650 MG PO (09:25)
[2023-10-16 09:54] VITALS: BP 91/49; PULSE 74; RESP 16; TEMP 36.8; O2SAT 99
[2023-10-16 10:54] VITALS: BP 87/50; RESP 16; TEMP 36.4
[2023-10-16 11:58] VITALS: BP 93/45; PULSE 67; RESP 16; TEMP 36.4
[2023-10-16 12:58] VITALS: BP 92/49; PULSE 63; RESP 16; TEMP 36.7; O2SAT 97
[2023-10-16 13:35] VITALS: BP 104/60; PULSE 67; RESP 16; TEMP 36.5; O2SAT 99
== END 2023-10-16 08:50 | disposition home or self-care (01) ==
LOC: MEDOUTP 08:49
PROVIDERS: PCP Internal Medicine; Referring Provider Specialist; Visit Provider Specialist
DX: D64.81 Anemia due to antineoplastic chemotherapy (principal)
CPT/HCPCS: 36430; 86850; 86900; 86901; 86920; 86922; J7040; P9016; A4216

== ENCOUNTER 2023-10-23 10:17 | Outpatient (CLI) | payer OTHER, SELFPAY ==
[2023-10-23 10:30] VITALS: BP 113/64; PULSE 88; RESP 16; TEMP 36.2; O2SAT 98; BMI 27.8
[2023-10-23] MEDS: Acetaminophen 325 MG Tablet 650 MG PO (10:48)
[2023-10-23] MEDS: 0.9% NaCl VAD Flush IV (10:49)
[2023-10-23] MEDS: 0.9% Normal Saline (500mL Bag) 500 ML 15 ML IV (10:49)
[2023-10-23 11:44] VITALS: BP 94/54; PULSE 86; RESP 16; TEMP 36.1; O2SAT 98
[2023-10-23 12:51] VITALS: BP 97/55; PULSE 82; RESP 16; TEMP 36.1; O2SAT 99
[2023-10-23 13:38] VITALS: BP 104/61; PULSE 81; RESP 16; TEMP 36.2; O2SAT 99
== END 2023-10-23 10:18 | disposition home or self-care (01) ==
LOC: MEDOUTP 10:17
PROVIDERS: PCP Internal Medicine; Referring Provider Specialist; Visit Provider Specialist
DX: D64.81 Anemia due to antineoplastic chemotherapy (principal)
CPT/HCPCS: 36430; 86850; 86900; 86901; 86920; 86922; J7040; P9016; A4216

== ENCOUNTER 2023-11-11 11:15 | Outpatient (RCR) | payer OTHER, SELFPAY ==
[2023-10-19 00:52] VITALS: BP 124/49; PULSE 76; RESP 18; TEMP 35.2; BMI 61.2
[2023-10-21 10:13] VITALS: BP 92/58; PULSE 89; RESP 16; TEMP 35.9; BMI 61.2
--- NOTE | 2023-10-21 11:40 | PN.PCM_ITS ---
History of Present Illness Date of Service: 10/21/23 Chief Complaint: Follow-up on an nonhealing I&D done in the hospital on his left lower leg. History of Wound: 58-year-old white male with an open wound on his left lower leg developing after he had developed cellulitis after his last chemo over a thu ago. It then developed into a boil that was I&D in the emergency room. They did do cultures that were rare patient was started on doxycycline and he is packing it with iodoform gauze. No odor is noted some erythema around the edges leg is swollen with a lot of tissue along around the edges of the wound also. He is currently battling leukemia and non-Hodgkin's lymphoma. Progress of Wound: Developed an allergic reaction to ciprofloxacin with a rash was told to stop on Thursday we will restart him on Augmentin today. Still pending is his wound VAC through his insurance company. Doing well packing with Fibracol. Will have him follow-up as soon as he gets the wound VAC bring it and we can apply it. Measurements are smaller today Subjective Subjective and are agreeable to plan Objective Data Objective Data Looking good still has some discharge coming out that is yellowish no odor noted measurements are smaller and less depth. Will do well with the wound VAC to close. Right now still packing with Fibracol. Vital Signs: Vital Signs Temp Pulse Resp BP O2 Del Method 96.7 F L 89 16 92/58 L Room Air 10/21/23 10:13 10/21/23 10:13 10/21/23 10:13 10/21/23 10:13 10/21/23 10:13 Oxygen Delivery Method Room Air Weight: 451 lb 15.162 oz Body Mass Index (BMI) 61.2 Lab / Micro Data Attestation: I reviewed the patient's lab results. Physical Exam Const alert, oriented x3, no apparent distress, average body habitus and well nourished General Appearance: cooperative, comfortable and well kempt HEENT normocephalic, head/scalp atraumatic, hearing grossly normal bilaterally, moist oral mucous membranes and oropharynx normal Eyes PERRL and EOMs intact bilaterally Neck no lymphadenopathy and supple Lymph Lymphatic: no lymphadenopathy noted Resp normal respiratory effort, normal air movement, no retractions, no use of accessory muscles and clear to auscultation bilaterally Cardio regular rate, regular rhythm, S1 normal heart sound, S2 normal heart sound and no murmurs Cardio Narrative: afib, rate poorly controlled Rate: tachycardic GI normal to inspection, nondistended, normoactive bowel sounds, soft to palpation, non-tender and non-distended Extremity Extremity Narrative: LLE wrapped in bandage. General Extremity: no tenderness to palpation of joints or extremities Skin Skin Narrative: LLE wrapped in bandage. Neuro oriented x3, CN's II-XII intact bilaterally, moves all extremities and no focal motor deficits Sensorium / Orientation: awake, alert, oriented to person, oriented to place and oriented to time Speech: speech normal Motor Exam: strength 5/5 throughout and general weakness Psych thought process normal, cooperative and affect normal Appearance: appropriate Debridement Note Debridement Note Wound debrided: Left lower leg wound nonhealing from I&D Type of Debridement: Excisional debridement Anesthesia Used: 5% Lidocaine Gel Depth: Down to and including healthy tissue and in the subcutaneous layer Percentage of wound debrided: 100 Instrument Used: 5mm curette Tissue Removed: Fibrin devitalized tissue slough Severity: Fat Layer Exposed Amount of bleeding with debridement: Mild Bleeding Controlled with: Compression and gauze Post-Debridement Measurements and Additional Note: Post-Debridement Measurements/Treatment - Nurse 1 - General Ulcer Assessment Start: 10/21/23 10:13 Freq: Status: Active Protocol: KAMALJIT Activity Type Activity Date Activity User E-sign Co-sign Detail Recorded Client Recorded Date Recorded By Document 10/21/23 10:13 [facility] Desktop 10/21/23 10:24 [facility] 10/21/23 10:13 - Today's Visit Information Type of service 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 ) Arrival Mode Ambulatory Transfer Assistance None Patient Identification Verified (Name & Yes ) Patient Requires Transmission-Based No Precautions Height and Weight Body Mass Index (BMI) 61.2 BMI Classification Obese Vital Signs Temperature (97.8 F-99.1 F) 96.7 F L Temperature Source Temporal Pulse Rate (60-100) 89 Pulse Location Monitor Respiratory Rate (12-18) 16 Respiratory rate source Observation Oxygen Delivery Method Room Air Blood Pressure (90/60-120/80) 92/58 L Blood Pressure Mean (mm Hg) 69 Source Monitor Position Sitting Blood Pressure Location Left Arm History Since Last Visit- (Skip if this is Patient's initial visit) Have you changed medications since your No last visit? Any new allergies or adverse reactions Yes Had a fall/change in ADL's that may No increase risk of falls Signs or symptoms of abuse and/or No neglect since last visit Have you been in the hospital since your No last visit? Has dressing in place as prescribed Yes Has compression in place as prescribed N/A Has offloadiing in place as prescribed N/A Experienced any changes in pain level or No management Left Footwear Regular Shoe Right Footwear Regular Shoe Pain Scale: 0-10 Numeric Is Patient Pain Free? Yes WC - Nurse 1 - General Ulcer Measurement Start: 10/21/23 10:13 Freq: Status: Active Protocol: Activity Type Activity Date Activity User E-sign Co-sign Detail Recorded Client Recorded Date Recorded By Document 10/21/23 10:13 [facility] Desktop 10/21/23 10:24 [facility] 10/21/23 10:13 Wound Center Nurse 1 #1 LT LAT LEG -Combined with other wound No -Current Size (cm) - Length 2.9 -Current Size (cm) - Width 1.3 -Current Size (cm) - Depth 1 -Total Square Cm 3.77 -Date of Last Picture (Recall this 10/21/23 field) -Photo Taken Yes -Epithelialization None Present -Tunneling No -Undermining/Tunneling Yes -Undermining/Tunneling Starts (O'clock 6 ) -Undermining/Tunneling Ends (O'clock) 2 -Maximum Distance (cm) 2.2 -Circular Undermining No -Exudate Amt Large -Exudate Type Serosanguineous -Wound Margin Distinct, Outline Attached -Granulation Amt Small (1-33%) -Granulation Quality Red -Slough/Fibrin Yes -Necrosis Amt Large (67-100%) -Necrotic Tissue Type Adherent Slough -Texture (Salena-wound Skin Appearance) Assessed, Scarring -Moisture (Salena-wound Skin Appearance) Assessed,Dry/ Scaly -Color (Salena-wound Skin Appearance) Assessed, Hemosiderin Staining -Temperature (Salena-wound Skin No Abnormality Appearance) (Pt Warm) -Tenderness on Palpation (Salena-wound No Skin Appearance) -Ulcer Cleansing Soap and Water -Foul Odor after Cleansing No -Anesthetic Used 5% Lidocaine Gel Lower Limb Edema Present Yes Left Calf (cm) 37.6 Left Ankle (cm) 23.5 - Nurse 2 - General Ulcer CM Notes Start: 10/21/23 10:13 Freq: Status: Active Protocol: Activity Type Activity Date Activity User E-sign Co-sign Detail Recorded Client Recorded Date Recorded By Document 10/21/23 10:39 [facility] Desktop 10/21/23 10:42 MW 10/21/23 10:39 Wound Center Nurse 2 #1 LT LAT LEG -Time 10:40 -Correct Patient Yes -Correct Side, Site, Position Yes -Correct Procedure Yes -Procedure Performed Yes -Type of Procedure Debridement -Clinical Debridement Subcutaneous -Tissue Removed Dermis, Subcutaneous -Post Debridement (cm) - Length 2.5 -Post Debridement (cm) - Width 1.0 -Post Debridement (cm) - Depth 1.5 -Total Square (Post) (cm) 2.50 -Area of Debridement (cm) - Length 2.5 -Area of Debridement (cm) - Width 1.0 -Total Square (Area) (cm) 2.50 -Tunneling No -Undermining/Tunneling No -Circular Undermining No -Wound/Ulcer Outcome Not Healed -Ulcer Cleansing Rinsed/ Irrigated with Saline -Foul Odor after Cleansing No -Bioengineered Tissue No -Bleeding Controlled with Pressure -Treatment Response Procedure Tolerated Well -Offloading No -Debridement - Subq, 1st 20sq cm Yes Pain Scale: 0-10 Numeric Is Patient Pain Free? Yes - Nurse 3 - General Ulcer D/C NN Start: 10/21/23 10:13 Freq: Status: Active Protocol: Activity Type Activity Date Activity User E-sign Co-sign Detail Recorded Client Recorded Date Recorded By Document 10/21/23 11:02 [facility] Desktop 10/21/23 11:04 [facility] 10/21/23 11:02 Wound Care Center Nurse 3 #1 LT LAT LEG -Ulcer Cleansing Rinsed/ Irrigated with Saline -Foul Odor after Cleansing No -Primary Dressing Applied Fibracol Plus 4x4,Mepilex Border -Fibracol Plus 4x4 1 -Mepilex Border 1 Left -Tubular Bandage Double Layer -Size of Tubigrip Used Size E -Size E ($) 2 -Other SENT AN EXTRA ONE Treatment Response Procedure Tolerated Well Pain Scale: 0-10 Numeric Is Patient Pain Free? Yes - Visit Discharge Discharge Condition Stable Ambulatory Status Ambulatory Transportation Private Auto Accompanied by Assessment/Plan Assessment/Plan (1) Pain in left lower leg: CODE(S): M79.662 - Pain in left lower leg (2) Nonhealing surgical wound: CODE(S): T81.89XA - Other complications of procedures, not elsewhere c lassified, initial encounter QUALIFIERS: Encounter type: initial encounter Qualified Code(s): T81.89XA - Other complications of procedures, not elsewhere classified, initial encounter PLAN: Wash left lower leg with antibacterial soap and water pat dry pack wound with Fibracol moistened with Adaptic and absorbent dressing over top. Ordered a wound VAC be set at 125 mmHg. Patient is to get the battery charged before he arrives. Start Augmentin 875 1 p.o. twice daily for 10 days #20 no refills (3) Infected wound: CODE(S): T14.8XXA - Other injury of unspecified body region, initial encounter; L08.9 - Local infection of the skin and subcutaneous tissue, unspecified (4) Edema of left lower leg: CODE(S): R60.0 - Localized edema
[2023-10-23 10:20] VITALS: BP 119/72; PULSE 96; RESP 18; TEMP 36.3; BMI 61.2
--- NOTE | 2023-10-23 12:09 | WC ---
4.3.24 LT LAT LEG
[2023-10-28 10:22] VITALS: BP 93/42; PULSE 80; RESP 20; TEMP 36.6; BMI 61.2
--- NOTE | 2023-10-28 12:23 | PCM.WC.PN ---
History of Present Illness Date of Service: 10/28/23 Chief Complaint: Follow-up on an nonhealing I&D done in the hospital on his left lower leg. History of Wound: 58-year-old white male with an open wound on his left lower leg developing after he had developed cellulitis after his last chemo over a month ago. It then developed into a boil that was I&D in the emergency room. They did do cultures that were rare patient was started on doxycycline and he is packing it with iodoform gauze. No odor is noted some erythema around the edges leg is swollen with a lot of tissue along around the edges of the wound also. He is currently battling leukemia and non-Hodgkin's lymphoma. Progress of Wound: Developed an allergic reaction to ciprofloxacin with a rash was told to stop on Thursday we will restart him on doxycycline today. He has had the wound VAC now for a week and it is doing better. Will increase pressure to 150. Patient has finished his doxycycline wound looks guide rail cleaner and better had some drainage in the canister. Patient denies any pain the color in the leg looks so much better it looks less dark red than it was Subjective Subjective Patient is happy with outcomes and is agreeable to plan Objective Data Objective Data Again no sign of infections the coloring in his left leg looks better tolerating the wound VAC very well we will continue Vital Signs: Vital Signs Temp Pulse Resp BP O2 Del Method 97.9 F 80 20 H 93/42 L Room Air 10/28/23 10:22 10/28/23 10:22 10/28/23 10:22 10/28/23 10:22 10/21/23 10:13 Oxygen Delivery Method Room Air Weight: 451 lb 15.162 oz Body Mass Index (BMI) 61.2 Lab / Micro Data Attestation: I reviewed the patient's lab results. Physical Exam Const alert, oriented x3, no apparent distress, average body habitus and well nourished General Appearance: cooperative, comfortable and well kempt HEENT normocephalic, head/scalp atraumatic, hearing grossly normal bilaterally, moist oral mucous membranes and oropharynx normal Eyes PERRL and EOMs intact bilaterally Neck no lymphadenopathy and supple Lymph Lymphatic: no lymphadenopathy noted Resp normal respiratory effort, normal air movement, no retractions, no use of accessory muscles and clear to auscultation bilaterally Cardio regular rate, regular rhythm, S1 normal heart sound, S2 normal heart sound and no murmurs Cardio Narrative: afib, rate poorly controlled Rate: tachycardic GI normal to inspection, nondistended, normoactive bowel sounds, soft to palpation, non-tender and non-distended Extremity Extremity Narrative: LLE wrapped in bandage. General Extremity: no tenderness to palpation of joints or extremities Skin Skin Narrative: LLE wrapped in bandage. Neuro oriented x3, CN's II-XII intact bilaterally, moves all extremities and no focal motor deficits Sensorium / Orientation: awake, alert, oriented to person, oriented to place and oriented to time Speech: speech normal Motor Exam: strength 5/5 throughout and general weakness Psych thought process normal, cooperative and affect normal Appearance: appropriate Debridement Note Debridement Note Wound debrided: Left lower leg wound nonhealing from I&D Type of Debridement: Excisional debridement Anesthesia Used: 5% Lidocaine Gel Depth: Down to and including healthy tissue and in the subcutaneous layer Percentage of wound debrided: 100 Instrument Used: 5mm curette Tissue Removed: Fibrin devitalized tissue slough Severity: Fat Layer Exposed Amount of bleeding with debridement: Mild Bleeding Controlled with: Compression and gauze Post-Debridement Measurements and Additional Note: Post-Debridement Measurements/Treatment - Nurse 1 - General Ulcer Assessment Start: 10/21/23 10:13 Freq: Status: Active Protocol: KAMALJIT Activity Type Activity Date Activity User E-sign Co-sign Detail Recorded Client Recorded Date Recorded By Document 10/21/23 10:13 [facility] Desktop 10/21/23 10:24 [facility] Document 10/23/23 10:20 RB [id number] 10/23/23 10:24 RB Document 10/28/23 10:22 DL Desktop 10/28/23 10:31 DL 10/21/23 10/23/23 10/28/23 10:13 10:20 10:22 - Today's Visit Information Type of service Follow-up Visit Follow-up Visit Follow-up Visit (Physician/[employer]TER (Physician/[employer] (Physician/[employer]TER ) ) ) Arrival Mode Ambulatory Ambulatory Ambulatory Transfer Assistance None None None Patient Identification Verified (Name & Yes Yes Yes ) Patient Requires Transmission-Based No No No Precautions Height and Weight Body Mass Index (BMI) 61.2 61.2 61.2 BMI Classification Obese Obese Obese Vital Signs Temperature (97.8 F-99.1 F) 96.7 F L 97.4 F L 97.9 F Temperature Source Temporal Temporal Temporal Pulse Rate (60-100) 89 96 80 Pulse Location Monitor Monitor Monitor Respiratory Rate (12-18) 16 18 20 H Respiratory rate source Observation Observation Observation Oxygen Delivery Method Room Air Blood Pressure (90/60-120/80) 92/58 L 119/72 93/42 L Blood Pressure Mean (mm Hg) 69 87 59 Source Monitor Monitor Monitor Position Sitting Semi-Fowlers Blood Pressure Location Left Arm Right Arm History Since Last Visit- (Skip if this is Patient's initial visit) Have you changed medications since your No No No last visit? Any new allergies or adverse reactions Yes No No Had a fall/change in ADL's that may No No No increase risk of falls Signs or symptoms of abuse and/or No No No neglect since last visit Have you been in the hospital since your No No No last visit? Has dressing in place as prescribed Yes Yes Yes Has compression in place as prescribed N/A Yes Yes Has offloadiing in place as prescribed N/A No Yes Experienced any changes in pain level or No No No management Left Footwear Regular Shoe Right Footwear Regular Shoe Pain Scale: 0-10 Numeric Is Patient Pain Free? Yes Yes Yes WC - Nurse 1 - General Ulcer Measurement Start: 10/21/23 10:13 Freq: Status: Active Protocol: Activity Type Activity Date Activity User E-sign Co-sign Detail Recorded Client Recorded Date Recorded By Document 10/21/23 10:13 [facility] Desktop 10/21/23 10:24 [facility] Document 10/23/23 10:20 RB [id number] 10/23/23 10:24 RB Document 10/28/23 10:22 DL Desktop 10/28/23 10:31 DL 10/21/23 10/23/23 10/28/23 10:13 10:20 10:22 Wound Center Nurse 1 #1 LT LAT LEG -Combined with other wound No -Current Size (cm) - Length 2.9 1 -Current Size (cm) - Width 1.3 0.8 -Current Size (cm) - Depth 1 2.4 -Total Square Cm 3.77 0.8 -Date of Last Picture (Recall this 10/21/23 field) -Photo Taken Yes -Epithelialization None Present -Tunneling No -Tunneling Position (O'clock) 7 -Tunneling Distance (cm) 4.4 -Undermining/Tunneling Yes -Undermining/Tunneling Starts (O'clock 6 ) -Undermining/Tunneling Ends (O'clock) 2 -Maximum Distance (cm) 2.2 -Circular Undermining No -Exudate Amt Large Large Medium -Exudate Type Serosanguineous Serosanguineous Serosanguineous -Wound Margin Distinct, Distinct, Distinct, Outline Outline Outline Attached Attached Attached -Granulation Amt Small (1-33%) Medium (34-66%) Large (67-100%) -Granulation Quality Red [employer] Red -Slough/Fibrin Yes Yes -Necrosis Amt Large (67-100%) Medium (34-66%) None Present (0 %) -Necrotic Tissue Type Adherent Slough Adherent Slough -Structure Exposed Tendon N/A -Texture (Salena-wound Skin Appearance) Assessed, Assessed Scarring Scarring -Moisture (Salena-wound Skin Appearance) Assessed,Dry/ Assessed No Abnormality Scaly -Color (Salena-wound Skin Appearance) Assessed, Assessed, Hemosiderin Hemosiderin Hemosiderin Staining Staining Staining -Temperature (Salena-wound Skin No Abnormality No Abnormality No Abnormality Appearance) (Pt Warm) (Pt Warm) (Pt Warm) -Tenderness on Palpation (Salena-wound No No Skin Appearance) -Ulcer Cleansing Soap and Water Wound Cleanser Soap and Water -Foul Odor after Cleansing No No No -Anesthetic Used 5% Lidocaine 5% Lidocaine Gel Gel Lower Limb Edema Present Yes Left Calf (cm) 37.6 37.2 Left Ankle (cm) 23.5 23.7 WC - Nurse 2 - General Ulcer CM Notes Start: 10/21/23 10:13 Freq: Status: Active Protocol: Activity Type Activity Date Activity User E-sign Co-sign Detail Recorded Client Recorded Date Recorded By Document 10/21/23 10:39 MW Desktop 10/21/23 10:42 MW Document 10/28/23 10:38 MW Desktop 10/28/23 10:43 MW 10/21/23 10/28/23 10:39 10:38 Wound Center Nurse 2 #1 LT LAT LEG -Time 10:40 10:41 -Correct Patient Yes Yes -Correct Side, Site, Position Yes Yes -Correct Procedure Yes Yes -Procedure Performed Yes Yes -Type of Procedure Debridement Debridement -Clinical Debridement Subcutaneous Subcutaneous -Tissue Removed Dermis, Subcutaneous Subcutaneous -Post Debridement (cm) - Length 2.5 1.4 -Post Debridement (cm) - Width 1.0 0.9 -Post Debridement (cm) - Depth 1.5 1.5 -Total Square (Post) (cm) 2.50 1.26 -Area of Debridement (cm) - Length 2.5 1.4 -Area of Debridement (cm) - Width 1.0 0.9 -Total Square (Area) (cm) 2.50 1.26 -Tunneling No Yes -Tunneling Position (O'clock) 7 -Tunneling Distance (cm) 4.5 -Undermining/Tunneling No Yes -Undermining/Tunneling Starts (O'clock 1 ) -Undermining/Tunneling Ends (O'clock) 12 -Maximum Distance (cm) 0.8 -Circular Undermining No No -Wound/Ulcer Outcome Not Healed Not Healed -Ulcer Cleansing Rinsed/ Rinsed/ Irrigated with Irrigated with Saline Saline -Foul Odor after Cleansing No No -Bioengineered Tissue No No -Bleeding Controlled with Pressure Pressure -Treatment Response Procedure Procedure Tolerated Well Tolerated Well -Offloading No No -Debridement - Subq, 1st 20sq cm Yes Yes Pain Scale: 0-10 Numeric Is Patient Pain Free? Yes Yes WC - Nurse 3 - General Ulcer D/C NN Start: 10/21/23 10:13 Freq: Status: Active Protocol: Activity Type Activity Date Activity User E-sign Co-sign Detail Recorded Client Recorded Date Recorded By Document 10/21/23 11:02 [facility] [employer] 10/21/23 11:04 [facility] Document 10/23/23 10:20 RB [id number] 10/23/23 10:24 RB Document 10/28/23 10:48 DL Desktop 10/28/23 10:50 DL 10/21/23 10/23/23 10/28/23 11:02 10:20 10:48 Wound Care Center Nurse 3 #1 LT LAT LEG -Ulcer Cleansing Rinsed/ Wound Cleanser Soap and Water Irrigated with Saline -Foul Odor after Cleansing No No -Negative Pressure Wound Therapy Start Continue -Setting (mmHg) 125 150 -Negative Pressure is Continuous Continuous -Primary Dressing Applied Fibracol Plus 4x4,Mepilex Border -Other Covering white foam to tunnel -NPWT Application Charge NPWT </= 50 sq NPWT & cm ($) Debridement (nc ) -Fibracol Plus 4x4 1 -Mepilex Border 1 Left -Compression Wrap Gopi Wrap -Tubular Bandage Double Layer Double Layer -Size of Tubigrip Used Size E Size E -Size E ($) 2 2 -Other SENT AN EXTRA ONE Treatment Response Procedure Procedure Procedure Tolerated Well Tolerated Well Tolerated Well Vital Signs Temperature (97.8 F-99.1 F) 97.4 F L Temperature Source Temporal Pulse Rate (60-100) 96 Pulse Location Monitor Respiratory Rate (12-18) 18 Respiratory rate source Observation Blood Pressure (90/60-120/80) 119/72 Blood Pressure Mean (mm Hg) 87 Source Monitor Position Semi-Fowlers Blood Pressure Location Right Arm Pain Scale: 0-10 Numeric Is Patient Pain Free? Yes Yes Yes WC - Visit Discharge Discharge Condition Stable Stable Stable Ambulatory Status Ambulatory Ambulatory Ambulatory Transportation Private Auto Private Auto Private Auto Accompanied by Medication Reconcilliation completed & No provided to patient/care provider Clinical Summary of Care Provided Yes Notes: abd pad under dressig applied vac tubing per B Reyes double layer today in clinic size tubigrip . Assessment/Plan Assessment/Plan (1) Pain in left lower leg: CODE(S): M79.662 - Pain in left lower leg (2) Nonhealing surgical wound: CODE(S): T81.89XA - Other complications of procedures, not elsewhere classified, initial encounter QUALIFIERS: Encounter type: initial encounter Qualified Code(s): T81.89XA - Other complications of procedures, not elsewhere classified, initial encounter PLAN: Continue wound VAC at 150 mmHg. Follow-up in 1 week Finish antibiotic therapy (3) Infected wound: CODE(S): T14.8XXA - Other injury of unspecified body region, initial encounter; L08.9 - Local infection of the skin and subcutaneous tissue, unspecified (4) Edema of left lower leg: CODE(S): R60.0 - Localized edema
--- NOTE | 2023-10-30 11:21 | WC ---
4.10.24 RT LAT LEG
--- NOTE | 2023-11-04 11:22 | PN.PCM_ITS ---
History of Present Illness Date of Service: 11/04/23 Chief Complaint: Follow-up on an nonhealing I&D done in the hospital on his left lower leg. History of Wound: 58-year-old white male with an open wound on his left lower leg developing after he had developed cellulitis after his last chemo over a thu ago. It then developed into a boil that was I&D in the emergency room. They did do cultures that were rare patient was started on doxycycline and he is packing it with iodoform gauze. No odor is noted some erythema around the edges leg is swollen with a lot of tissue along around the edges of the wound also. He is currently battling leukemia and non-Hodgkin's lymphoma. Progress of Wound: With the increase in wound VAC compression is made the wound about half its size. Looking better we will continue at 150 with only 1 change per week patient is tolerating it well. No sign of infection just finished his antibiotics Subjective Subjective Agreeable to plan Objective Data Objective Data Will continue using the wound VAC healing is doing well no sign of infection much smaller half the size Vital Signs: Vital Signs Temp Pulse Resp BP O2 Del Method 97.9 F 80 20 H 93/42 L Room Air 10/28/23 10:22 10/28/23 10:22 10/28/23 10:22 10/28/23 10:10/21/23 10:13 Oxygen Delivery Method Room Air Weight: 451 lb 15.162 oz Body Mass Index (BMI) 61.2 Lab / Micro Data Attestation: I reviewed the patient's lab results. Physical Exam Const alert, oriented x3, no apparent distress, average body habitus and well nourished General Appearance: cooperative, comfortable and well kempt HEENT normocephalic, head/scalp atraumatic, hearing grossly normal bilaterally, moist oral mucous membranes and oropharynx normal Eyes PERRL and EOMs intact bilaterally Neck no lymphadenopathy and supple Lymph Lymphatic: no lymphadenopathy noted Resp normal respiratory effort, normal air movement, no retractions, no use of accessory muscles and clear to auscultation bilaterally Cardio regular rate, regular rhythm, S1 normal heart sound, S2 normal heart sound and no murmurs Cardio Narrative: afib, rate poorly controlled Rate: tachycardic GI normal to inspection, nondistended, normoactive bowel sounds, soft to palpation, non-tender and non-distended Extremity Extremity Narrative: LLE wrapped in bandage. General Extremity: no tenderness to palpation of joints or extremities Skin Skin Narrative: LLE wrapped in bandage. Neuro oriented x3, CN's II-XII intact bilaterally, moves all extremities and no focal motor deficits Sensorium / Orientation: awake, alert, oriented to person, oriented to place and oriented to time Speech: speech normal Motor Exam: strength 5/5 throughout and general weakness Psych thought process normal, cooperative and affect normal Appearance: appropriate Debridement Note Debridement Note Wound debrided: Left lower leg wound nonhealing from I&D Type of Debridement: Excisional debridement Anesthesia Used: 5% Lidocaine Gel Depth: Down to and including healthy tissue and in the subcutaneous layer Percentage of wound debrided: 100 Instrument Used: 5mm curette Tissue Removed: Fibrin devitalized tissue slough Severity: Fat Layer Exposed Amount of bleeding with debridement: Mild Bleeding Controlled with: Compression and gauze Post-Debridement Measurements and Additional Note: Post-Debridement Measurements/Treatment - Nurse 1 - General Ulcer Assessment Start: 10/21/23 10:13 Freq: Status: Active Protocol: KAMALJIT Activity Type Activity Date Activity User E-sign Co-sign Detail Recorded Client Recorded Date Recorded By Document 10/21/23 10:13 [facility] Desktop 10/21/23 10:24 [facility] Document 10/23/23 10:20 RB [id number] 10/23/23 10:24 RB Document 10/28/23 10:22 DL Desktop 10/28/23 10:31 DL 10/21/23 10/23/23 10/28/23 10:13 10:20 10:22 - Today's Visit Information Type of service Follow-up Visit Follow-up Visit Follow-up Visit (Physician/HOSPICE COMMUNITY LIAISON (Physician/HOSPICE COMMUNITY LIAISON (Physician/HOSPICE COMMUNITY LIAISON ) ) ) Arrival Mode Ambulatory Ambulatory Ambulatory Transfer Assistance None None None Patient Identification Verified (Name & Yes Yes Yes ) Patient Requires Transmission-Based No No No Precautions Height and Weight Body Mass Index (BMI) 61.2 61.2 61.2 BMI Classification Obese Obese Obese Vital Signs Temperature (97.8 F-99.1 F) 96.7 F L 97.4 F L 97.9 F Temperature Source Temporal Temporal Temporal Pulse Rate (60-100) 89 96 80 Pulse Location Monitor Monitor Monitor Respiratory Rate (12-18) 16 18 20 H Respiratory rate source Observation Observation Observation Oxygen Delivery Method Room Air Blood Pressure (90/60-120/80) 92/58 L 119/72 93/42 L Blood Pressure Mean (mm Hg) 69 87 59 Source Monitor Monitor Monitor Position Sitting Semi-Fowlers Blood Pressure Location Left Arm Right Arm History Since Last Visit- (Skip if this is Patient's initial visit) Have you changed medications since your No No No last visit? Any new allergies or adverse reactions Yes No No Had a fall/change in ADL's that may No No No increase risk of falls Signs or symptoms of abuse and/or No No No neglect since last visit Have you been in the hospital since your No No No last visit? Has dressing in place as prescribed Yes Yes Yes Has compression in place as prescribed N/A Yes Yes Has offloadiing in place as prescribed N/A No Yes Experienced any changes in pain level or No No No management Left Footwear Regular Shoe Right Footwear Regular Shoe Pain Scale: 0-10 Numeric Is Patient Pain Free? Yes Yes Yes WC - Nurse 1 - General Ulcer Measurement Start: 10/21/23 10:13 Freq: Status: Active Protocol: Activity Type Activity Date Activity User E-sign Co-sign Detail Recorded Client Recorded Date Recorded By Document 10/21/23 10:13 [facility] Desktop 10/21/23 10:24 [facility] Document 10/23/23 10:20 RB [id number] 10/23/23 10:24 RB Document 10/28/23 10:22 DL Desktop 10/28/23 10:31 DL 10/21/23 10/23/23 10/28/23 10:13 10:20 10:22 Wound Center Nurse 1 #1 LT LAT LEG -Combined with other wound No -Current Size (cm) - Length 2.9 1 -Current Size (cm) - Width 1.3 0.8 -Current Size (cm) - Depth 1 2.4 -Total Square Cm 3.77 0.8 -Date of Last Picture (Recall this 10/21/23 field) -Photo Taken Yes -Epithelialization None Present -Tunneling No -Tunneling Position (O'clock) 7 -Tunneling Distance (cm) 4.4 -Undermining/Tunneling Yes -Undermining/Tunneling Starts (O'clock 6 ) -Undermining/Tunneling Ends (O'clock) 2 -Maximum Distance (cm) 2.2 -Circular Undermining No -Exudate Amt Large Large Medium -Exudate Type Serosanguineous Serosanguineous Serosanguineous -Wound Margin Distinct, Distinct, Distinct, Outline Outline Outline Attached Attached Attached -Granulation Amt Small (1-33%) Medium (34-66%) Large (67-100%) -Granulation Quality Red Barber Red -Slough/Fibrin Yes Yes -Necrosis Amt Large (67-100%) Medium (34-66%) None Present (0 %) -Necrotic Tissue Type Adherent Slough Adherent Slough -Structure Exposed Tendon N/A -Texture (Salena-wound Skin Appearance) Assessed, Assessed Scarring Scarring -Moisture ([place]-wound Skin Appearance) Assessed,Dry/ Assessed No Abnormality Scaly -Color ([place]-wound Skin Appearance) Assessed, Assessed, Hemosiderin Hemosiderin Hemosiderin Staining Staining Staining -Temperature ([place]-wound Skin No Abnormality No Abnormality No Abnormality Appearance) (Pt Warm) (Pt Warm) (Pt Warm) -Tenderness on Palpation ([place]-wound No No Skin Appearance) -Ulcer Cleansing Soap and Water Wound Cleanser Soap and Water -Foul Odor after Cleansing No No No -Anesthetic Used 5% Lidocaine 5% Lidocaine Gel Gel Lower Limb Edema Present Yes Left Calf (cm) 37.6 37.2 Left Ankle (cm) 23.5 23.7 WC - Nurse 2 - General Ulcer CM Notes Start: 10/21/23 10:13 Freq: Status: Active Protocol: Activity Type Activity Date Activity User E-sign Co-sign Detail Recorded Client Recorded Date Recorded By Document 10/21/23 10:39 MW Desktop 10/21/23 10:42 MW Document 10/28/23 10:38 MW Desktop 10/28/23 10:43 MW Document 11/04/23 11:10 MW Desktop 11/04/23 11:12 MW 10/21/23 10/28/23 11/04/23 10:39 10:38 11:10 Wound Center Nurse 2 #1 LT LAT LEG -Time 10:40 10:41 11:11 -Correct Patient Yes Yes Yes -Correct Side, Site, Position Yes Yes Yes -Correct Procedure Yes Yes Yes -Procedure Performed Yes Yes Yes -Type of Procedure Debridement Debridement Debridement -Clinical Debridement Subcutaneous Subcutaneous Subcutaneous -Tissue Removed Dermis, Subcutaneous Subcutaneous Subcutaneous -Post Debridement (cm) - Length 2.5 1.4 1.2 -Post Debridement (cm) - Width 1.0 0.9 0.6 -Post Debridement (cm) - Depth 1.5 1.5 1.5 -Total Square (Post) (cm) 2.50 1.26 0.72 -Area of Debridement (cm) - Length 2.5 1.4 1.2 -Area of Debridement (cm) - Width 1.0 0.9 0.6 -Total Square (Area) (cm) 2.50 1.26 0.72 -Tunneling No Yes Yes -Tunneling Position (O'clock) 7 7 -Tunneling Distance (cm) 4.5 2.0 -Undermining/Tunneling No Yes No -Undermining/Tunneling Starts (O'clock 1 ) -Undermining/Tunneling Ends (O'clock) 12 -Maximum Distance (cm) 0.8 -Circular Undermining No No No -Wound/Ulcer Outcome Not Healed Not Healed -Ulcer Cleansing Rinsed/ Rinsed/ Rinsed/ Irrigated with Irrigated with Irrigated with Saline Saline Saline -Foul Odor after Cleansing No No No -Bioengineered Tissue No No No -Bleeding Controlled with Pressure Pressure Pressure -Treatment Response Procedure Procedure Procedure Tolerated Well Tolerated Well Tolerated Well -Offloading No No No -Debridement - Subq, 1st 20sq cm Yes Yes Yes Pain Scale: 0-10 Numeric Is Patient Pain Free? Yes Yes Yes WC - Nurse 3 - General Ulcer D/C NN Start: 10/21/23 10:13 Freq: Status: Active Protocol: Activity Type Activity Date Activity User E-sign Co-sign Detail Recorded Client Recorded Date Recorded By Document 10/21/23 11:02 [facility] Desktop 10/21/23 11:04 [facility] Document 10/23/23 10:20 RB [id number] 10/23/23 10:24 RB Document 10/28/23 10:48 DL Desktop 10/28/23 10:50 DL Document 11/04/23 11:16 [facility] Desktop 11/04/23 11:17 [facility] 10/21/23 10/23/23 10/28/23 11:02 10:20 10:48 Wound Care Center Nurse 3 #1 LT LAT LEG -Ulcer Cleansing Rinsed/ Wound Cleanser Soap and Water Irrigated with Saline -Foul Odor after Cleansing No No -Negative Pressure Wound Therapy Start Continue -Setting (mmHg) 125 150 -Negative Pressure is Continuous Continuous -Primary Dressing Applied Fibracol Plus 4x4,Mepilex Border -Other Dressing -Other Covering white foam to tunnel -NPWT Application Charge NPWT </= 50 sq NPWT & cm ($) Debridement (nc ) -Fibracol Plus 4x4 1 -Mepilex Border 1 Left -Compression Wrap Gopi Wrap -Tubular Bandage Double Layer Double Layer -Size of Tubigrip Used Size E Size E -Size E ($) 2 2 -Other SENT AN EXTRA ONE Treatment Response Procedure Procedure Procedure Tolerated Well Tolerated Well Tolerated Well Vital Signs Temperature (97.8 F-99.1 F) 97.4 F L Temperature Source Temporal Pulse Rate (60-100) 96 Pulse Location Monitor Respiratory Rate (12-18) 18 Respiratory rate source Observation Blood Pressure (90/60-120/80) 119/72 Blood Pressure Mean (mm Hg) 87 Source Monitor Position Semi-Fowlers Blood Pressure Location Right Arm Pain Scale: 0-10 Numeric Is Patient Pain Free? Yes Yes Yes WC - Visit Discharge Discharge Condition Stable Stable Stable Ambulatory Status Ambulatory Ambulatory Ambulatory Transportation Private Auto Private Auto Private Auto Accompanied by Medication Reconcilliation completed & No provided to patient/care provider Clinical Summary of Care Provided Yes Notes: abd pad under dressig applied vac tubing per B Reyes double layer today in clinic size tubigrip . 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 Yes WC - Visit Discharge Discharge Condition Stable Ambulatory Status Ambulatory Transportation Private Auto Accompanied by Medication Reconcilliation completed & provided to patient/care provider Clinical Summary of Care Provided Notes: Assessment/Plan Assessment/Plan (1) Pain in left lower leg: CODE(S): M79.662 - Pain in left lower leg (2) Nonhealing surgical wound: CODE(S): T81.89XA - Other complications of procedures, not elsewhere class ified, initial encounter QUALIFIERS: Encounter type: initial encounter Qualified Code(s): T81.89XA - Other complications of procedures, not elsewhere classified, initial encounter PLAN: Continue wound VAC at 150 mmHg. Follow-up in 1 week Finish antibiotic therapy (3) Infected wound: CODE(S): T14.8XXA - Other injury of unspecified body region, initial encounter; L08.9 - Local infection of the skin and subcutaneous tissue, unspecified (4) Edema of left lower leg: CODE(S): R60.0 - Localized edema
[2023-11-11 11:08] VITALS: BP 141/77; PULSE 81; RESP 16; TEMP 36.3; BMI 61.2
--- NOTE | 2023-11-11 12:58 | PN.PCM_ITS ---
History of Present Illness Date of Service: 11/11/23 Chief Complaint: Follow-up on an nonhealing I&D done in the hospital on his left lower leg. History of Wound: 58-year-old white male with an open wound on his left lower leg developing after he had developed cellulitis after his last chemo over a thu ago. It then developed into a boil that was I&D in the emergency room. They did do cultures that were rare patient was started on doxycycline and he is packing it with iodoform gauze. No odor is noted some erythema around the edges leg is swollen with a lot of tissue along around the edges of the wound also. He is currently battling leukemia and non-Hodgkin's lymphoma. Progress of Wound: With the increase in wound VAC compression is made the wound about half its size. Looking better we will continue at 150 with only 1 change per week patient is tolerating it well. No sign of infection just finished his antibiotics. Still has some depth of 1-1/2 cm just needs to still use the wound VAC for another week but looks so much better and the skin around the area is less dark and looking more like normal skin no dryness noted. Subjective Subjective Patient is agreeable to plan Objective Data Objective Data Will continue using the wound VAC for another week with the white foam down in the canal no sign of infection looks good patient states it was continuously working. Vital Signs: Vital Signs Temp Pulse Resp BP O2 Del Method 97.3 F L 81 16 141/77 H Room Air 11/11/23 11:08 11/11/23 11:08 11/11/23 11:08 11/11/23 11:08 11/11/23 11:08 Oxygen Delivery Method Room Air Weight: 451 lb 15.162 oz Body Mass Index (BMI) 61.2 Lab / Micro Data Attestation: I reviewed the patient's lab results. Physical Exam Const alert, oriented x3, no apparent distress, average body habitus and well nourished General Appearance: cooperative, comfortable and well kempt HEENT normocephalic, head/scalp atraumatic, hearing grossly normal bilaterally, moist oral mucous membranes and oropharynx normal Eyes PERRL and EOMs intact bilaterally Neck no lymphadenopathy and supple Lymph Lymphatic: no lymphadenopathy noted Resp normal respiratory effort, normal air movement, no retractions, no use of accessory muscles and clear to auscultation bilaterally Cardio regular rate, regular rhythm, S1 normal heart sound, S2 normal heart sound and no murmurs Cardio Narrative: afib, rate poorly controlled Rate: tachycardic GI normal to inspection, nondistended, normoactive bowel sounds, soft to palpation, non-tender and non-distended Extremity Extremity Narrative: LLE wrapped in bandage. General Extremity: no tenderness to palpation of joints or extremities Skin Skin Narrative: LLE wrapped in bandage. Neuro oriented x3, CN's II-XII intact bilaterally, moves all extremities and no focal motor deficits Sensorium / Orientation: awake, alert, oriented to person, oriented to place and oriented to time Speech: speech normal Motor Exam: strength 5/5 throughout and general weakness Psych thought process normal, cooperative and affect normal Appearance: appropriate Debridement Note Debridement Note Wound debrided: Left lower leg wound nonhealing from I&D Type of Debridement: Excisional debridement Anesthesia Used: 5% Lidocaine Gel Depth: Down to and including healthy tissue and in the subcutaneous layer Percentage of wound debrided: 100 Instrument Used: 5mm curette Tissue Removed: Fibrin devitalized tissue slough Severity: Fat Layer Exposed Amount of bleeding with debridement: Mild Bleeding Controlled with: Compression and gauze Post-Debridement Measurements and Additional Note: Post-Debridement Measurements/Treatment - Nurse 1 - General Ulcer Assessment Start: 10/21/23 10:13 Freq: Status: Active Protocol: KAMALJIT Activity Type Activity Date Activity User E-sign Co-sign Detail Recorded Client Recorded Date Recorded By Document 10/21/23 10:13 [facility] Desktop 10/21/23 10:24 [facility] Document 10/23/23 10:20 RB [id number] 10/23/23 10:24 RB Document 10/28/23 10:22 DL Desktop 10/28/23 10:31 DL Document 11/11/23 11:08 [facility] Desktop 11/11/23 11:20 [facility] 10/21/23 10/23/23 10/28/23 10:13 10:20 10:22 - Today's Visit Information Type of service Follow-up Visit Follow-up Visit Follow-up Visit (Physician/BAILER TENDERS SUPERVISOR (Physician/BA[employer] TENDERS SUPERVISOR (Physician/BAILER TENDERS SUPERVISOR ) ) ) Arrival Mode Ambulatory Ambulatory Ambulatory Transfer Assistance None None None Patient Identification Verified (Name & Yes Yes Yes ) Patient Requires Transmission-Based No No No Precautions Height and Weight Body Mass Index (BMI) 61.2 61.2 61.2 BMI Classification Obese Obese Obese Vital Signs Temperature (97.8 F-99.1 F) 96.7 F L 97.4 F L 97.9 F Temperature Source Temporal Temporal Temporal Pulse Rate (60-100) 89 96 80 Pulse Location Monitor Monitor Monitor Respiratory Rate (12-18) 16 18 20 H Respiratory rate source Observation Observation Observation Oxygen Delivery Method Room Air Blood Pressure (90/60-120/80) 92/58 L 119/72 93/42 L Blood Pressure Mean (mm Hg) 69 87 59 Source Monitor Monitor Monitor Position Sitting Semi-Fowlers Blood Pressure Location Left Arm Right Arm History Since Last Visit- (Skip if this is Patient's initial visit) Have you changed medications since your No No No last visit? Any new allergies or adverse reactions Yes No No Had a fall/change in ADL's that may No No No increase risk of falls Signs or symptoms of abuse and/or No No No neglect since last visit Have you been in the hospital since your No No No last visit? Has dressing in place as prescribed Yes Yes Yes Has compression in place as prescribed N/A Yes Yes Has offloadiing in place as prescribed N/A No Yes Experienced any changes in pain level or No No No management Left Footwear Regular Shoe Right Footwear Regular Shoe Pain Scale: 0-10 Numeric Is Patient Pain Free? Yes Yes Yes 11/11/23 11:08 - Today's Visit Information Type of service Follow-up Visit (Physician/[employer] TEND[employer] SUPERVISOR ) Arrival Mode Ambulatory Transfer Assistance None Patient Identification Verified (Name & Yes ) Patient Requires Transmission-Based No Precautions Height and Weight Body Mass Index (BMI) 61.2 BMI Classification Obese Vital Signs Temperature (97.8 F-99.1 F) 97.3 F L Temperature Source Temporal Pulse Rate (60-100) 81 Pulse Location Monitor Respiratory Rate (12-18) 16 Respiratory rate source Observation Oxygen Delivery Method Room Air Blood Pressure (90/60-120/80) 141/77 H Blood Pressure Mean (mm Hg) 98 Source Monitor Position Sitting Blood Pressure Location Left Arm History Since Last Visit- (Skip if this is Patient's initial visit) Have you changed medications since your No last visit? Any new allergies or adverse reactions No Had a fall/change in ADL's that may No increase risk of falls Signs or symptoms of abuse and/or No neglect since last visit Have you been in the hospital since your No last visit? Has dressing in place as prescribed Yes Has compression in place as prescribed Yes Has offloadiing in place as prescribed N/A Experienced any changes in pain level or No management Left Footwear Regular Shoe Right Footwear Regular Shoe Pain Scale: 0-10 Numeric Is Patient Pain Free? Yes WC - Nurse 1 - General Ulcer Measurement Start: 10/21/23 10:13 Freq: Status: Active Protocol: Activity Type Activity Date Activity User E-sign Co-sign Detail Recorded Client Recorded Date Recorded By Document 10/21/23 10:13 [facility] Desktop 10/21/23 10:24 [facility] Document 10/23/23 10:20 RB [id number] 10/23/23 10:24 RB Document 10/28/23 10:22 DL Desktop 10/28/23 10:31 DL Document 11/11/23 11:08 [facility] Desktop 11/11/23 11:20 [facility] 10/21/23 10/23/23 10/28/23 10:13 10:20 10:22 Wound Center Nurse 1 #1 LT LAT LEG -Combined with other wound No -Current Size (cm) - Length 2.9 1 -Current Size (cm) - Width 1.3 0.8 -Current Size (cm) - Depth 1 2.4 -Total Square Cm 3.77 0.8 -Date of Last Picture (Recall this 10/21/23 field) -Photo Taken Yes -Epithelialization None Present -Tunneling No -Tunneling Position (O'clock) 7 -Tunneling Distance (cm) 4.4 -Undermining/Tunneling Yes -Undermining/Tunneling Starts (O'clock 6 ) -Undermining/Tunneling Ends (O'clock) 2 -Maximum Distance (cm) 2.2 -Circular Undermining No -Exudate Amt Large Large Medium -Exudate Type Serosanguineous Serosanguineous Serosanguineous -Wound Margin Distinct, Distinct, Distinct, Outline Outline Outline Attached Attached Attached -Granulation Amt Small (1-33%) Medium (34-66%) Large (67-100%) -Granulation Quality Red [place] Red -Slough/Fibrin Yes Yes -Necrosis Amt Large (67-100%) Medium (34-66%) None Present (0 %) -Necrotic Tissue Type Adherent Slough Adherent Slough -Structure Exposed Tendon N/A -Texture ([place]-wound Skin Appearance) Assessed, Assessed Scarring Scarring -Moisture ([place]-wound Skin Appearance) Assessed,Dry/ Assessed No Abnormality Scaly -Color ([place]-wound Skin Appearance) Assessed, Assessed, Hemosiderin Hemosiderin Hemosiderin Staining Staining Staining -Temperature ([place]-wound Skin No Abnormality No Abnormality No Abnormality Appearance) (Pt Warm) (Pt Warm) (Pt Warm) -Tenderness on Palpation ([place]-wound No No Skin Appearance) -Ulcer Cleansing Soap and Water Wound Cleanser Soap and Water -Foul Odor after Cleansing No No No -Anesthetic Used 5% Lidocaine 5% Lidocaine Gel Gel Lower Limb Edema Present Yes Left Calf (cm) 37.6 37.2 Left Ankle (cm) 23.5 23.7 11/11/23 11:08 Wound Center Nurse 1 #1 LT LAT LEG -Combined with other wound -Current Size (cm) - Length 0.9 -Current Size (cm) - Width 0.4 -Current Size (cm) - Depth 0.8 -Total Square Cm 0.36 -Date of Last Picture (Recall this field) -Photo Taken Yes -Epithelialization -Tunneling -Tunneling Position (O'clock) -Tunneling Distance (cm) -Undermining/Tunneling -Undermining/Tunneling Starts (O'clock ) -Undermining/Tunneling Ends (O'clock) -Maximum Distance (cm) -Circular Undermining -Exudate Amt Medium -Exudate Type Serosanguineous -Wound Margin Distinct, Outline Attached -Granulation Amt Large (67-100%) -Granulation Quality Red -Slough/Fibrin -Necrosis Amt None Present (0 %) -Necrotic Tissue Type -Structure Exposed N/A -Texture ([place]-wound Skin Appearance) Scarring -Moisture ([place]-wound Skin Appearance) No Abnormality -Color ([place]-wound Skin Appearance) Hemosiderin Staining -Temperature ([place]-wound Skin No Abnormality Appearance) (Pt Warm) -Tenderness on Palpation ([place]-wound No Skin Appearance) -Ulcer Cleansing Soap and Water -Foul Odor after Cleansing No -Anesthetic Used 5% Lidocaine Gel Lower Limb Edema Present Left Calf (cm) 37.4 Left Ankle (cm) 24.1 WC - Nurse 2 - General Ulcer CM Notes Start: 10/21/23 10:13 Freq: Status: Active Protocol: Activity Type Activity Date Activity User E-sign Co-sign Detail Recorded Client Recorded Date Recorded By Document 10/21/23 10:39 [facility] Desktop 10/21/23 10:42 MW Document 10/28/23 10:38 [facility] Desktop 10/28/23 10:43 MW Document 11/04/23 11:10 [facility] Desktop 11/04/23 11:12 MW Document 11/11/23 11:24 MW Desktop 11/11/23 11:27 MW 10/21/23 10/28/23 11/04/23 10:39 10:38 11:10 Wound Center Nurse 2 #1 LT LAT LEG -Time 10:40 10:41 11:11 -Correct Patient Yes Yes Yes -Correct Side, Site, Position Yes Yes Yes -Correct Procedure Yes Yes Yes -Procedure Performed Yes Yes Yes -Type of Procedure Debridement Debridement Debridement -Clinical Debridement Subcutaneous Subcutaneous Subcutaneous -Tissue Removed Dermis, Subcutaneous Subcutaneous Subcutaneous -Post Debridement (cm) - Length 2.5 1.4 1.2 -Post Debridement (cm) - Width 1.0 0.9 0.6 -Post Debridement (cm) - Depth 1.5 1.5 1.5 -Total Square (Post) (cm) 2.50 1.26 0.72 -Area of Debridement (cm) - Length 2.5 1.4 1.2 -Area of Debridement (cm) - Width 1.0 0.9 0.6 -Total Square (Area) (cm) 2.50 1.26 0.72 -Tunneling No Yes Yes -Tunneling Position (O'clock) 7 7 -Tunneling Distance (cm) 4.5 2.0 -Undermining/Tunneling No Yes No -Undermining/Tunneling Starts (O'clock 1 ) -Undermining/Tunneling Ends (O'clock) 12 -Maximum Distance (cm) 0.8 -Circular Undermining No No No -Wound/Ulcer Outcome Not Healed Not Healed -Ulcer Cleansing Rinsed/ Rinsed/ Rinsed/ Irrigated with Irrigated with Irrigated with Saline Saline Saline -Foul Odor after Cleansing No No No -Bioengineered Tissue No No No -Bleeding Controlled with Pressure Pressure Pressure -Treatment Response Procedure Procedure Procedure Tolerated Well Tolerated Well Tolerated Well -Offloading No No No -Debridement - Subq, 1st 20sq cm Yes Yes Yes Pain Scale: 0-10 Numeric Is Patient Pain Free? Yes Yes Yes 11/11/23 11:24 Wound Center Nurse 2 #1 LT LAT LEG -Time 11:24 -Correct Patient Yes -Correct Side, Site, Position Yes -Correct Procedure Yes -Procedure Performed Yes -Type of Procedure Debridement -Clinical Debridement Subcutaneous -Tissue Removed Subcutaneous -Post Debridement (cm) - Length 0.9 -Post Debridement (cm) - Width 0.4 -Post Debridement (cm) - Depth 1.5 -Total Square (Post) (cm) 0.36 -Area of Debridement (cm) - Length 0.9 -Area of Debridement (cm) - Width 0.4 -Total Square (Area) (cm) 0.36 -Tunneling No -Tunneling Position (O'clock) -Tunneling Distance (cm) -Undermining/Tunneling No -Undermining/Tunneling Starts (O'clock ) -Undermining/Tunneling Ends (O'clock) -Maximum Distance (cm) -Circular Undermining No -Wound/Ulcer Outcome Not Healed -Ulcer Cleansing Rinsed/ Irrigated with Saline -Foul Odor after Cleansing No -Bioengineered Tissue No -Bleeding Controlled with Pressure -Treatment Response Procedure Tolerated Well -Offloading No -Debridement - Subq, 1st 20sq cm Yes Pain Scale: 0-10 Numeric Is Patient Pain Free? Yes - Nurse 3 - General Ulcer D/C NN Start: 10/21/23 10:13 Freq: Status: Active Protocol: Activity Type Activity Date Activity User E-sign Co-sign Detail Recorded Client Recorded Date Recorded By Document 10/21/23 11:02 [facility] Desktop 10/21/23 11:04 [facility] Document 10/23/23 10:20 RB [id number] 10/23/23 10:24 RB Document 10/28/23 10:48 DL Desktop 10/28/23 10:50 DL Document 11/04/23 11:16 [facility] Desktop 11/04/23 11:17 [facility] Document 11/11/23 11:40 [facility] Desktop 11/11/23 11:41 [facility] 10/21/23 10/23/23 10/28/23 11:02 10:20 10:48 Wound Care Center Nurse 3 #1 LT LAT LEG -Ulcer Cleansing Rinsed/ Wound Cleanser Soap and Water Irrigated with Saline -Foul Odor after Cleansing No No -Negative Pressure Wound Therapy Start Continue -Setting (mmHg) 125 150 -Negative Pressure is Continuous Continuous -Primary Dressing Applied Fibracol Plus 4x4,Mepilex Border -Other Dressing -Other Covering white foam to tunnel -NPWT Application Charge NPWT </= 50 sq NPWT & cm ($) Debridement (nc ) -Fibracol Plus 4x4 1 -Mepilex Border 1 Left -Compression Wrap Gopi Wrap -Tubular Bandage Double Layer Double Layer -Size of Tubigrip Used Size E Size E -Size E ($) 2 2 -Other SENT AN EXTRA ONE Treatment Response Procedure Procedure Procedure Tolerated Well Tolerated Well Tolerated Well Vital Signs Temperature (97.8 F-99.1 F) 97.4 F L Temperature Source Temporal Pulse Rate (60-100) 96 Pulse Location Monitor Respiratory Rate (12-18) 18 Respiratory rate source Observation Blood Pressure (90/60-120/80) 119/72 Blood Pressure Mean (mm Hg) 87 Source Monitor Position Semi-Fowlers Blood Pressure Location Right Arm Pain Scale: 0-10 Numeric Is Patient Pain Free? Yes Yes Yes WC - Visit Discharge Discharge Condition Stable Stable Stable Ambulatory Status Ambulatory Ambulatory Ambulatory Transportation Private Auto Private Auto Private Auto Accompanied by Medication Reconcilliation completed & No provided to patient/care provider Clinical Summary of Care Provided Yes Notes: abd pad under dressig applied vac tubing per B Reyes double layer today in clinic size tubigrip . 11/04/23 11/11/23 11:16 11:40 Wound Care Center Nurse 3 #1 LT LAT LEG -Ulcer Cleansing Rinsed/ Rinsed/ Irrigated with Irrigated with Saline Saline -Foul Odor after Cleansing No No -Negative Pressure Wound Therapy Continue Continue -Setting (mmHg) 150 150 -Negative Pressure is Continuous Continuous -Primary Dressing Applied -Other Dressing white foam, top w/ black; vac applied per dl fleet mechanic -Other Covering -NPWT Application Charge NPWT & NPWT & Debridement (nc Debridement (nc ) ) -Fibracol Plus 4x4 -Mepilex Border Left -Compression Wrap -Tubular Bandage Single Layer Single Layer -Size of Tubigrip Used Size E Size E -Size E ($) 1 1 -Other Treatment Response Procedure Procedure Tolerated Well Tolerated Well Vital Signs Temperature (97.8 F-99.1 F) Temperature Source Pulse Rate (60-100) Pulse Location Respiratory Rate (12-18) Respiratory rate source Blood Pressure (90/60-120/80) Blood Pressure Mean (mm Hg) Source Position Blood Pressure Location Pain Scale: 0-10 Numeric Is Patient Pain Free? Yes Yes WC - Visit Discharge Discharge Condition Stable Stable Ambulatory Status Ambulatory Ambulatory Transportation Private Auto Private Auto Accompanied by Medication Reconcilliation completed & provided to patient/care provider Clinical Summary of Care Provided Notes: Assessment/Plan Assessment/Plan (1) Pain in left lower leg: CODE(S): M79.662 - Pain in left lower leg (2) Nonhealing surgical wound: CODE(S): T81.89XA - Other complications of procedures, not elsewhere classified, initial encounter QUALIFIERS: Encounter type: initial encounter Qualified Code(s): T81.89XA - Other complications of procedures, not elsewhere classified, initial encounter PLAN: Continue wound VAC at 150 mmHg. Follow-up in 1 week (3) Infected wound: CODE(S): T14.8XXA - Other injury of unspecified body region, initial encounter; L08.9 - Local infection of the skin and subcutaneous tissue, unspecified (4) Edema of left lower leg: CODE(S): R60.0 - Localized edema
== END 2023-11-17 23:59 | disposition home or self-care (01) ==
LOC: WC 11:15
PROVIDERS: PCP Internal Medicine; Referring Provider Student in an Organized Health Care Education/Training Program; Visit Provider Nurse Practitioner
DX: T81.89XA Other complications of procedures, not elsewhere classified, initial encounter (principal); C85.90 Non-Hodgkin lymphoma, unspecified, unspecified site; L02.92 Furuncle, unspecified; R21 Rash and other nonspecific skin eruption; T36.8X5A Adverse effect of other systemic antibiotics, initial encounter; M79.662 Pain in left lower leg; R60.0 Localized edema; T14.8XXA Other injury of unspecified body region, initial encounter
CPT/HCPCS: 11042; 97605

== ENCOUNTER 2023-12-16 11:15 | Outpatient (RCR) | payer OTHER, SELFPAY ==
[2023-11-18 00:28] VITALS: BP 141/77; PULSE 81; RESP 16; TEMP 36.3; BMI 61.2
[2023-11-18 11:10] VITALS: BP 129/80; PULSE 78; RESP 18; TEMP 35.9; BMI 61.2
--- NOTE | 2023-11-18 12:59 | PN.PCM_ITS ---
History of Present Illness Date of Service: 11/18/23 Chief Complaint: Follow-up on an nonhealing I&D done in the hospital on his left lower leg. History of Wound: 58-year-old white male with an open wound on his left lower leg developing after he had developed cellulitis after his last chemo over a thu ago. It then developed into a boil that was I&D in the emergency room. They did do cultures that were rare patient was started on doxycycline and he is packing it with iodoform gauze. No odor is noted some erythema around the edges leg is swollen with a lot of tissue along around the edges of the wound also. He is currently battling leukemia and non-Hodgkin's lymphoma. Progress of Wound: Wound measures much smaller than it has in the past he still has a slight tunneling 2 at 7:00 still but depth is so much more shallow. Patient was hoping to get rid of the wound VAC this week. Like to get that tunneling a little bit shorter and before we start packing it. The opening is much smaller and will be hard to get probably anymore packing in there. Subjective Subjective Patient is agreeable to plan Objective Data Objective Data No sign of infection no odor still has a small very small hole with some tunneling. Will continue using the wound VAC for another week Vital Signs: Vital Signs Temp Pulse Resp BP 96.6 F L 78 18 129/80 H 11/18/23 11:10 11/18/23 11:10 11/18/23 11:10 11/18/23 11:10 Weight: 451 lb 15.162 oz Body Mass Index (BMI) 61.2 Lab / Micro Data Attestation: I reviewed the patient's lab results. Physical Exam Const alert, oriented x3, no apparent distress, average body habitus and well nourished General Appearance: cooperative, comfortable and well kempt HEENT normocephalic, head/scalp atraumatic, hearing grossly normal bilaterally, moist oral mucous membranes and oropharynx normal Eyes PERRL and EOMs intact bilaterally Neck no lymphadenopathy and supple Lymph Lymphatic: no lymphadenopathy noted Resp normal respiratory effort, normal air movement, no retractions, no use of accessory muscles and clear to auscultation bilaterally Cardio regular rate, regular rhythm, S1 normal heart sound, S2 normal heart sound and no murmurs Cardio Narrative: afib, rate poorly controlled Rate: tachycardic GI normal to inspection, nondistended, normoactive bowel sounds, soft to palpation, non-tender and non-distended Extremity Extremity Narrative: LLE wrapped in bandage. General Extremity: no tenderness to palpation of joints or extremities Skin Skin Narrative: LLE wrapped in bandage. Neuro oriented x3, CN's II-XII intact bilaterally, moves all extremities and no focal motor deficits Sensorium / Orientation: awake, alert, oriented to person, oriented to place and oriented to time Speech: speech normal Motor Exam: strength 5/5 throughout and general weakness Psych thought process normal, cooperative and affect normal Appearance: appropriate Debridement Note Debridement Note Wound debrided: Left lower leg wound nonhealing from I&D Type of Debridement: Excisional debridement Anesthesia Used: 5% Lidocaine Gel Depth: Down to and including healthy tissue and in the subcutaneous layer Percentage of wound debrided: 100 Instrument Used: 5mm curette Tissue Removed: Fibrin devitalized tissue slough Severity: Fat Layer Exposed Amount of bleeding with debridement: Mild Bleeding Controlled with: Compression and gauze Post-Debridement Measurements and Additional Note: Post-Debridement Measurements/Treatment - Nurse 1 - General Ulcer Assessment Start: 11/18/23 07:37 Freq: Status: Active Protocol: CADY.KAVIN Activity Type Activity Date Activity User E-sign Co-sign Detail Recorded Client Recorded Date Recorded By Document 11/18/23 11:10 Desktop 11/18/23 11:13 11/18/23 11:10 - Today's Visit Information Type of service Follow-up Visit (Physician/MEAT STRINGER ) Arrival Mode Ambulatory Transfer Assistance None Patient Identification Verified (Name & Yes ) Patient Requires Transmission-Based No Precautions Height and Weight Body Mass Index (BMI) 61.2 BMI Classification Obese Vital Signs Temperature (97.8 F-99.1 F) 96.6 F L Temperature Source Temporal Pulse Rate (60-100) 78 Pulse Location Monitor Respiratory Rate (12-18) 18 Respiratory rate source Observation Blood Pressure (90/60-120/80) 129/80 H Blood Pressure Mean (mm Hg) 96 Source Monitor Position Semi-Fowlers Blood Pressure Location Left Arm History Since Last Visit- (Skip if this is Patient's initial visit) Have you changed medications since your No last visit? Any new allergies or adverse reactions No Had a fall/change in ADL's that may No increase risk of falls Signs or symptoms of abuse and/or No neglect since last visit Have you been in the hospital since your No last visit? Has dressing in place as prescribed Yes Has compression in place as prescribed Yes Has offloadiing in place as prescribed No Experienced any changes in pain level or No management Pain Scale: 0-10 Numeric Is Patient Pain Free? Yes - Nurse 1 - General Ulcer Measurement Start: 11/18/23 07:37 Freq: Status: Active Protocol: Activity Type Activity Date Activity User E-sign Co-sign Detail Recorded Client Recorded Date Recorded By Document 11/18/23 11:10 RB Desktop 11/18/23 11:13 RB 11/18/23 11:10 Wound Center Nurse 1 #1 LT LAT LEG -Combined with other wound No -Current Size (cm) - Length 0.5 -Current Size (cm) - Width 0.3 -Current Size (cm) - Depth 1.5 -Total Square Cm 0.15 -Tunneling No -Undermining/Tunneling No -Circular Undermining No -Exudate Amt Large -Exudate Type Serosanguineous -Wound Margin Distinct, Outline Attached -Granulation Amt Medium (34-66%) -Granulation Quality [place] -Slough/Fibrin Yes -Necrosis Amt Medium (34-66%) -Necrotic Tissue Type Adherent Slough -Structure Exposed N/A -Texture ([place]-wound Skin Appearance) Not Assessed, Scarring -Moisture ([place]-wound Skin Appearance) Assessed -Color ([place]-wound Skin Appearance) Assessed -Temperature ([place]-wound Skin No Abnormality Appearance) (Pt Warm) -Tenderness on Palpation ([place]-wound No Skin Appearance) -Ulcer Cleansing Wound Cleanser -Foul Odor after Cleansing No -Anesthetic Used 5% Lidocaine Gel Lower Limb Edema Present Yes Left Calf (cm) 38 Left Ankle (cm) 23.5 - Nurse 2 - General Ulcer CM Notes Start: 11/18/23 07:37 Freq: Status: Active Protocol: Activity Type Activity Date Activity User E-sign Co-sign Detail Recorded Client Recorded Date Recorded By Document 11/18/23 11:21 [facility] Desktop 11/18/23 11:30 [facility] 11/18/23 11:21 Wound Center Nurse 2 #1 LT LAT LEG -Time 11:24 -Correct Patient Yes -Correct Side, Site, Position Yes -Correct Procedure Yes -Procedure Performed Yes -Type of Procedure Debridement -Clinical Debridement Subcutaneous -Tissue Removed Subcutaneous -Post Debridement (cm) - Length 0.4 -Post Debridement (cm) - Width 0.3 -Post Debridement (cm) - Depth 0.8 -Total Square (Post) (cm) 0.12 -Tunneling Yes -Tunneling Position (O'clock) 7 -Tunneling Distance (cm) 1.8 -Undermining/Tunneling No -Circular Undermining No -Wound/Ulcer Outcome Not Healed -Ulcer Cleansing Rinsed/ Irrigated with Saline -Foul Odor after Cleansing No -Bioengineered Tissue No -Bleeding Controlled with Pressure -Treatment Response Procedure Tolerated Well -Debridement - Subq, 1st 20sq cm Yes Pain Scale: 0-10 Numeric Is Patient Pain Free? Yes - Nurse 3 - General Ulcer D/C NN Start: 11/18/23 07:37 Freq: Status: Active Protocol: Activity Type Activity Date Activity User E-sign Co-sign Detail Recorded Client Recorded Date Recorded By Document 11/18/23 11:36 [facility] Desktop 11/18/23 11:37 [facility] 11/18/23 11:36 Wound Care Center Nurse 3 #1 LT LAT LEG -Ulcer Cleansing Not Cleansed -Foul Odor after Cleansing No -Negative Pressure Wound Therapy Continue -Setting (mmHg) 150 -Negative Pressure is Continuous -NPWT Application Charge NPWT & Debridement (nc ) Pain Scale: 0-10 Numeric Is Patient Pain Free? Yes Teaching: Wound Center Dressing Your Wound -Person Taught Patient -Teaching Method Discussion, Demonstration -Response to teaching Verbalize understanding - Visit Discharge Discharge Condition Stable Ambulatory Status Ambulatory Transportation Private Auto Clinical Summary of Care Provided Yes Assessment/Plan Assessment/Plan (1) Pain in left lower leg: CODE(S): M79.662 - Pain in left lower leg (2) Nonhealing surgical wound: CODE(S): T81.89XA - Other complications of procedures, not elsewhere classified, initial encounter QUALIFIERS: Encounter type: initial encounter Qualified Code(s): T81.89XA - Other complications of procedures, not elsewhere classified, initial encounter PLAN: Continue wound VAC at 150 mmHg. Follow-up in 1 week (3) Infected wound: CODE(S): T14.8XXA - Other injury of unspecified body region, initial encounter; L08.9 - Local infection of the skin and subcutaneous tissue, unspecified (4) Edema of left lower leg: CODE(S): R60.0 - Localized edema
[2023-11-25 11:35] VITALS: BP 117/70; PULSE 85; RESP 18; TEMP 36.2; BMI 61.2
--- NOTE | 2023-11-25 12:13 | PCM.WC.PN ---
History of Present Illness Date of Service: 11/25/23 Chief Complaint: Follow-up on an nonhealing I&D done in the hospital on his left lower leg. History of Wound: 58-year-old white male with an open wound on his left lower leg developing after he had developed cellulitis after his last chemo over a month ago. It then developed into a boil that was I&D in the emergency room. They did do cultures that were rare patient was started on doxycycline and he is packing it with iodoform gauze. No odor is noted some erythema around the edges leg is swollen with a lot of tissue along around the edges of the wound also. He is currently battling leukemia and non-Hodgkin's lymphoma. Progress of Wound: Wound measures much smaller than it has in the past he still has a slight tunneling at 7:00 more shallow. We will discontinue the wound VAC this week and just pack with quarter inch iodoform gauze tightly with absorbent dressing over top. Subjective Subjective Patient is extremely happy about ending the wound VAC did do a good job Objective Data Objective Data Given no sign of infection just a small slit on the side of his leg but still has that tunnel that is the depth at 7:00 on ankle we will try to fill that and with the iodoform gauze packing. Patient understands he has to tightly pack it daily and cover with an absorbent dressing. Vital Signs: Vital Signs Temp Pulse Resp BP 97.2 F L 85 18 117/70 11/25/23 11:35 11/25/23 11:35 11/25/23 11:35 11/25/23 11:35 Weight: 451 lb 15.162 oz Body Mass Index (BMI) 61.2 Physical Exam Const alert, oriented x3, no apparent distress, average body habitus and well nourished General Appearance: cooperative, comfortable and well kempt HEENT normocephalic, head/scalp atraumatic, hearing grossly normal bilaterally, moist oral mucous membranes and oropharynx normal Eyes PERRL and EOMs intact bilaterally Neck no lymphadenopathy and supple Lymph Lymphatic: no lymphadenopathy noted Resp normal respiratory effort, normal air movement, no retractions, no use of accessory muscles and clear to auscultation bilaterally Cardio regular rate, regular rhythm, S1 normal heart sound, S2 normal heart sound and no murmurs Cardio Narrative: afib, rate poorly controlled Rate: tachycardic GI normal to inspection, nondistended, normoactive bowel sounds, soft to palpation, non-tender and non-distended Extremity Extremity Narrative: LLE wrapped in bandage. General Extremity: no tenderness to palpation of joints or extremities Skin Skin Narrative: LLE wrapped in bandage. Neuro oriented x3, CN's II-XII intact bilaterally, moves all extremities and no focal motor deficits Sensorium / Orientation: awake, alert, oriented to person, oriented to place and oriented to time Speech: speech normal Motor Exam: strength 5/5 throughout and general weakness Psych thought process normal, cooperative and affect normal Appearance: appropriate Debridement Note Debridement Note Wound debrided: Left lower leg wound nonhealing from I&D Type of Debridement: Excisional debridement Anesthesia Used: 5% Lidocaine Gel Depth: Down to and including healthy tissue and in the subcutaneous layer Percentage of wound debrided: 100 Instrument Used: 5mm curette Tissue Removed: Fibrin devitalized tissue slough Severity: Fat Layer Exposed Amount of bleeding with debridement: Mild Bleeding Controlled with: Compression and gauze Post-Debridement Measurements and Additional Note: Post-Debridement Measurements/Treatment - Nurse 1 - General Ulcer Assessment Start: 11/18/23 07:37 Freq: Status: Active Protocol: KAMALJIT Activity Type Activity Date Activity User E-sign Co-sign Detail Recorded Client Recorded Date Recorded By Document 11/18/23 11:10 Desktop 11/18/23 11:13 RB Document 11/25/23 11:35 Desktop 11/25/23 11:39 RB 11/18/23 11/25/23 11:10 11:35 - Today's Visit Information Type of service Follow-up Visit Follow-up Visit (Physician/REAL PROPERTY APPRAISER (Physician/REAL PROPERTY APPRAISER ) ) Arrival Mode Ambulatory Ambulatory Transfer Assistance None None Patient Identification Verified (Name & Yes Yes ) Patient Requires Transmission-Based No No Precautions Height and Weight Body Mass Index (BMI) 61.2 61.2 BMI Classification Obese Obese Vital Signs Temperature (97.8 F-99.1 F) 96.6 F L 97.2 F L Temperature Source Temporal Temporal Pulse Rate (60-100) 78 85 Pulse Location Monitor Monitor Respiratory Rate (12-18) 18 18 Respiratory rate source Observation Observation Blood Pressure (90/60-120/80) 129/80 H 117/70 Blood Pressure Mean (mm Hg) 96 85 Source Monitor Monitor Position Semi-Fowlers Semi-Fowlers Blood Pressure Location Left Arm Left Arm History Since Last Visit- (Skip if this is Patient's initial visit) Have you changed medications since your No No last visit? Any new allergies or adverse reactions No No Had a fall/change in ADL's that may No No increase risk of falls Signs or symptoms of abuse and/or No No neglect since last visit Have you been in the hospital since your No No last visit? Has dressing in place as prescribed Yes Yes Has compression in place as prescribed Yes Yes Has offloadiing in place as prescribed No No Experienced any changes in pain level or No No management Pain Scale: 0-10 Numeric Is Patient Pain Free? Yes Yes WC - Nurse 1 - General Ulcer Measurement Start: 11/18/23 07:37 Freq: Status: Active Protocol: Activity Type Activity Date Activity User E-sign Co-sign Detail Recorded Client Recorded Date Recorded By Document 11/18/23 11:10 RB Desktop 11/18/23 11:13 RB Document 11/25/23 11:35 RB Desktop 11/25/23 11:39 RB 11/18/23 11/25/23 11:10 11:35 Wound Center Nurse 1 #1 LT LAT LEG -Combined with other wound No No -Current Size (cm) - Length 0.5 0.4 -Current Size (cm) - Width 0.3 0.3 -Current Size (cm) - Depth 1.5 1.5 -Total Square Cm 0.15 0.12 -Tunneling No No -Undermining/Tunneling No No -Circular Undermining No No -Exudate Amt Large Medium -Exudate Type Serosanguineous Serosanguineous -Wound Margin Distinct, Distinct, Outline Outline Attached Attached -Granulation Amt Medium (34-66%) Medium (34-66%) -Granulation Quality [place] -Slough/Fibrin Yes Yes -Necrosis Amt Medium (34-66%) Small (1-33%) -Necrotic Tissue Type Adherent Slough Adherent Slough -Structure Exposed N/A N/A -Texture ([place]-wound Skin Appearance) Not Assessed, Assessed, Scarring Scarring -Moisture ([place]-wound Skin Appearance) Assessed Assessed -Color ([place]-wound Skin Appearance) Assessed Assessed -Temperature ([place]-wound Skin No Abnormality No Abnormality Appearance) (Pt Warm) (Pt Warm) -Tenderness on Palpation ([place]-wound No No Skin Appearance) -Ulcer Cleansing Wound Cleanser Wound Cleanser -Foul Odor after Cleansing No No -Anesthetic Used 5% Lidocaine 5% Lidocaine Gel Gel Lower Limb Edema Present Yes Yes Left Calf (cm) 38 38.2 Left Ankle (cm) 23.5 23.5 WC - Nurse 2 - General Ulcer CM Notes Start: 11/18/23 07:37 Freq: Status: Active Protocol: Activity Type Activity Date Activity User E-sign Co-sign Detail Recorded Client Recorded Date Recorded By Document 11/18/23 11:[address] [facility] Desktop 11/18/23 11:30 BM Document 11/25/23 11:[address] [facility] Desktop 11/25/23 11:[address] [facility] 11/18/23 11/25/23 11:21 11:40 Wound Center Nurse 2 #1 LT LAT LEG -Time 11:24 11:40 -Correct Patient Yes Yes -Correct Side, Site, Position Yes Yes -Correct Procedure Yes Yes -Procedure Performed Yes Yes -Type of Procedure Debridement Debridement -Clinical Debridement Subcutaneous Subcutaneous -Tissue Removed Subcutaneous Subcutaneous -Post Debridement (cm) - Length 0.4 0.8 -Post Debridement (cm) - Width 0.3 0.3 -Post Debridement (cm) - Depth 0.8 1.2 -Total Square (Post) (cm) 0.12 0.24 -Area of Debridement (cm) - Length 0.8 -Area of Debridement (cm) - Width 0.3 -Total Square (Area) (cm) 0.24 -Tunneling Yes Yes -Tunneling Position (O'clock) 7 7 -Tunneling Distance (cm) 1.8 1.2 -Undermining/Tunneling No No -Circular Undermining No No -Wound/Ulcer Outcome Not Healed Not Healed -Ulcer Cleansing Rinsed/ Rinsed/ Irrigated with Irrigated with Saline Saline -Foul Odor after Cleansing No No -Bioengineered Tissue No No -Bleeding Controlled with Pressure Pressure -Treatment Response Procedure Procedure Tolerated Well Tolerated Well -Offloading No -Debridement - Subq, 1st 20sq cm Yes Yes Pain Scale: 0-10 Numeric Is Patient Pain Free? Yes Yes CADY - Nurse 3 - General Ulcer D/C NN Start: 11/18/23 07:37 Freq: Status: Active Protocol: Activity Type Activity Date Activity User E-sign Co-sign Detail Recorded Client Recorded Date Recorded By Document 11/18/23 11:[address] [facility] Desktop 11/18/23 11:[address] [facility] Document 11/25/23 11:50 Desktop 11/25/23 11:51 11/18/23 11/25/23 11:36 11:50 Wound Care Center Nurse 3 #1 LT LAT LEG -Ulcer Cleansing Not Cleansed Not Cleansed -Foul Odor after Cleansing No -Negative Pressure Wound Therapy Continue -Setting (mmHg) 150 -Negative Pressure is Continuous -Primary Dressing Applied Mepilex Border, Nugauze, Iodoform 1/4in -NPWT Application Charge NPWT & Debridement (nc ) -Mepilex Border 1 -Nugauze, Iodoform 1/4in 1 Left -Lotion applied to leg before No compression wrap -Tubular Bandage Single Layer -Size of Tubigrip Used Size E -Size E ($) 1 Pain Scale: 0-10 Numeric Is Patient Pain Free? Yes Yes Teaching: Wound Center Dressing Your Wound -Person Taught Patient Patient -Teaching Method Discussion, Discussion, Demonstration Demonstration -Response to teaching Verbalize Verbalize understanding understanding WC - Visit Discharge Discharge Condition Stable Stable Ambulatory Status Ambulatory Ambulatory Transportation Private Auto Private Auto Clinical Summary of Care Provided Yes Yes Assessment/Plan Assessment/Plan (1) Pain in left lower leg: CODE(S): M79.662 - Pain in left lower leg (2) Nonhealing surgical wound: CODE(S): T81.89XA - Other complications of procedures, not elsewhere classified, initial encounter QUALIFIERS: Encounter type: initial encounter Qualified Code(s): T81.89XA - Other complications of procedures, not elsewhere classified, initial encounter PLAN: Stop the wound VAC discontinue and start packing with quarter inch iodoform gauze with an absorbent dressing over top follow-up in 1 week (3) Infected wound: CODE(S): T14.8XXA - Other injury of unspecified body region, initial encounter; L08.9 - Local infection of the skin and subcutaneous tissue, unspecified (4) Edema of left lower leg: CODE(S): R60.0 - Localized edema
[2023-12-02 11:20] VITALS: BP 106/71; PULSE 73; RESP 18; TEMP 35.7; BMI 61.2
--- NOTE | 2023-12-02 13:13 | PN.PCM_ITS ---
History of Present Illness Date of Service: 12/02/23 Chief Complaint: Follow-up on an nonhealing I&D done in the hospital on his left lower leg. History of Wound: 58-year-old white male with an open wound on his left lower leg developing after he had developed cellulitis after his last chemo over a thu ago. It then developed into a boil that was I&D in the emergency room. They did do cultures that were rare patient was started on doxycycline and he is packing it with iodoform gauze. No odor is noted some erythema around the edges leg is swollen with a lot of tissue along around the edges of the wound also. He is currently battling leukemia and non-Hodgkin's lymphoma. Progress of Wound: Wound VAC has been off 1 week and patient has been packing with quarter inch iodoform gauze doing very well it still continues to get smaller he is having a harder time getting the packing in. No sign of infection we will continue packing for another week and see what happens Subjective Subjective Patient just states he is having a hard time getting it in but is packing his best he can Objective Data Objective Data No sign of infection measurements are much smaller depth is so much better is closing nicely will continue with packing Vital Signs: Vital Signs Temp Pulse Resp BP 96.2 F L 73 18 106/71 12/02/23 11:20 12/02/23 11:20 12/02/23 11:20 12/02/23 11:20 Weight: 451 lb 15.162 oz Body Mass Index (BMI) 61.2 Physical Exam Const alert, oriented x3, no apparent distress, average body habitus and well nourished General Appearance: cooperative, comfortable and well kempt HEENT normocephalic, head/scalp atraumatic, hearing grossly normal bilaterally, moist oral mucous membranes and oropharynx normal Eyes PERRL and EOMs intact bilaterally Neck no lymphadenopathy and supple Lymph Lymphatic: no lymphadenopathy noted Resp normal respiratory effort, normal air movement, no retractions, no use of acce ssory muscles and clear to auscultation bilaterally Cardio regular rate, regular rhythm, S1 normal heart sound, S2 normal heart sound and no murmurs Cardio Narrative: afib, rate poorly controlled Rate: tachycardic GI normal to inspection, nondistended, normoactive bowel sounds, soft to palpation, non-tender and non-distended Extremity Extremity Narrative: LLE wrapped in bandage. General Extremity: no tenderness to palpation of joints or extremities Skin Skin Narrative: LLE wrapped in bandage. Neuro oriented x3, CN's II-XII intact bilaterally, moves all extremities and no focal motor deficits Sensorium / Orientation: awake, alert, oriented to person, oriented to place and oriented to time Speech: speech normal Motor Exam: strength 5/5 throughout and general weakness Psych thought process normal, cooperative and affect normal Appearance: appropriate Debridement Note Debridement Note Wound debrided: Left lower leg wound nonhealing from I&D Type of Debridement: Excisional debridement Anesthesia Used: 5% Lidocaine Gel Depth: Down to and including healthy tissue and in the subcutaneous layer Percentage of wound debrided: 100 Instrument Used: 5mm curette Tissue Removed: Fibrin devitalized tissue slough Severity: Fat Layer Exposed Amount of bleeding with debridement: Mild Bleeding Controlled with: Compression and gauze Post-Debridement Measurements and Additional Note: Post-Debridement Measurements/Treatment - Nurse 1 - General Ulcer Assessment Start: 11/18/23 07:37 Freq: Status: Active Protocol: KAMALJIT Activity Type Activity Date Activity User E-sign Co-sign Detail Recorded Client Recorded Date Recorded By Document 11/18/23 11:10 RB Desktop 11/18/23 11:13 RB Document 11/25/23 11:35 RB Desktop 11/25/23 11:39 RB Document 12/02/23 11:20 wound center 12/02/23 11:23 RB 11/18/23 11/25/23 12/02/23 11:10 11:35 11:20 - Today's Visit Information Type of service Follow-up Visit Follow-up Visit Follow-up Visit (Physician/PARACHUTE REPAIRER (Physician/PARACHUTE REPAIRER (Physician/PARACHUTE REPAIRER ) ) ) Arrival Mode Ambulatory Ambulatory Ambulatory Transfer Assistance None None None Patient Identification Verified (Name & Yes Yes Yes ) Patient Requires Transmission-Based No No No Precautions Height and Weight Body Mass Index (BMI) 61.2 61.2 61.2 BMI Classification Obese Obese Obese Vital Signs Temperature (97.8 F-99.1 F) 96.6 F L 97.2 F L 96.2 F L Temperature Source Temporal Temporal Temporal Pulse Rate (60-100) 78 85 73 Pulse Location Monitor Monitor Monitor Respiratory Rate (12-18) 18 18 18 Respiratory rate source Observation Observation Observation Blood Pressure (90/60-120/80) 129/80 H 117/70 106/71 Blood Pressure Mean (mm Hg) 96 85 82 Source Monitor Monitor Monitor Position Semi-Fowlers Semi-Fowlers Semi-Fowlers Blood Pressure Location Left Arm Left Arm Left Arm History Since Last Visit- (Skip if this is Patient's initial visit) Have you changed medications since your No No No last visit? Any new allergies or adverse reactions No No No Had a fall/change in ADL's that may No No No increase risk of falls Signs or symptoms of abuse and/or No No No neglect since last visit Have you been in the hospital since your No No No last visit? Has dressing in place as prescribed Yes Yes Yes Has compression in place as prescribed Yes Yes No Has offloadiing in place as prescribed No No No Experienced any changes in pain level or No No No management Pain Scale: 0-10 Numeric Is Patient Pain Free? Yes Yes Yes WC - Nurse 1 - General Ulcer Measurement Start: 11/18/23 07:37 Freq: Status: Active Protocol: Activity Type Activity Date Activity User E-sign Co-sign Detail Recorded Client Recorded Date Recorded By Document 11/18/23 11:10 RB Desktop 11/18/23 11:13 RB Document 11/25/23 11:35 RB Desktop 11/25/23 11:39 RB Document 12/02/23 11:20 RB wound center 12/02/23 11:23 RB 11/18/23 11/25/23 12/02/23 11:10 11:35 11:20 Wound Center Nurse 1 #1 LT LAT LEG -Combined with other wound No No No -Current Size (cm) - Length 0.5 0.4 0.2 -Current Size (cm) - Width 0.3 0.3 0.3 -Current Size (cm) - Depth 1.5 1.5 0.6 -Total Square Cm 0.15 0.12 0.06 -Tunneling No No No -Undermining/Tunneling No No No -Circular Undermining No No No -Exudate Amt Large Medium Medium -Exudate Type Serosanguineous Serosanguineous Serosanguineous -Wound Margin Distinct, Distinct, Distinct, Outline Outline Outline Attached Attached Attached -Granulation Amt Medium (34-66%) Medium (34-66%) Medium (34-66%) -Granulation Quality [place] -Slough/Fibrin Yes Yes Yes -Necrosis Amt Medium (34-66%) Small (1-33%) Medium (34-66%) -Necrotic Tissue Type Adherent Slough Adherent Slough Adherent Slough -Structure Exposed N/A N/A N/A -Texture ([place]-wound Skin Appearance) Not Assessed, Assessed, Assessed Scarring Scarring -Moisture ([place]-wound Skin Appearance) Assessed Assessed Assessed -Color ([place]-wound Skin Appearance) Assessed Assessed Assessed -Temperature ([place]-wound Skin No Abnormality No Abnormality No Abnormality Appearance) (Pt Warm) (Pt Warm) (Pt Warm) -Tenderness on Palpation ([place]-wound No No No Skin Appearance) -Ulcer Cleansing Wound Cleanser Wound Cleanser Wound Cleanser -Foul Odor after Cleansing No No No -Anesthetic Used 5% Lidocaine 5% Lidocaine 5% Lidocaine Gel Gel Gel Lower Limb Edema Present Yes Yes Yes Left Calf (cm) 38 38.2 39 Left Ankle (cm) 23.5 23.5 23.5 WC - Nurse 2 - General Ulcer CM Notes Start: 11/18/23 07:37 Freq: Status: Active Protocol: Activity Type Activity Date Activity User E-sign Co-sign Detail Recorded Client Recorded Date Recorded By Document 11/18/23 11:21 [facility] Desktop 11/18/23 11:30 [facility] Document 11/25/23 11:40 [facility] Desktop 11/25/23 11:45 [facility] Document 12/02/23 11:30 [facility] wound center 12/02/23 11:37 [facility] 11/18/23 11/25/23 12/02/23 11:21 11:40 11:30 Wound Center Nurse 2 #1 LT LAT LEG -Time 11:24 11:40 11:30 -Correct Patient Yes Yes Yes -Correct Side, Site, Position Yes Yes Yes -Correct Procedure Yes Yes Yes -Procedure Performed Yes Yes Yes -Type of Procedure Debridement Debridement Debridement -Clinical Debridement Subcutaneous Subcutaneous Subcutaneous -Tissue Removed Subcutaneous Subcutaneous Subcutaneous -Post Debridement (cm) - Length 0.4 0.8 0.4 -Post Debridement (cm) - Width 0.3 0.3 0.2 -Post Debridement (cm) - Depth 0.8 1.2 0.6 -Total Square (Post) (cm) 0.12 0.24 0.08 -Area of Debridement (cm) - Length 0.8 0.4 -Area of Debridement (cm) - Width 0.3 0.2 -Total Square (Area) (cm) 0.24 0.08 -Tunneling Yes Yes Yes -Tunneling Position (O'clock) 7 7 7 -Tunneling Distance (cm) 1.8 1.2 1 -Undermining/Tunneling No No No -Circular Undermining No No No -Wound/Ulcer Outcome Not Healed Not Healed Not Healed -Ulcer Cleansing Rinsed/ Rinsed/ Irrigated with Irrigated with Saline Saline -Foul Odor after Cleansing No No No -Bioengineered Tissue No No No -Bleeding Controlled with Pressure Pressure Pressure -Treatment Response Procedure Procedure Procedure Tolerated Well Tolerated Well Tolerated Well -Offloading No No -Debridement - Subq, 1st 20sq cm Yes Yes Yes Pain Scale: 0-10 Numeric Is Patient Pain Free? Yes Yes Yes WC - Nurse 3 - General Ulcer D/C NN Start: 11/18/23 07:37 Freq: Status: Active Protocol: Activity Type Activity Date Activity User E-sign Co-sign Detail Recorded Client Recorded Date Recorded By Document 11/18/23 11:36 [facility] Desktop 11/18/23 11:37 [facility] Document 11/25/23 11:50 Desktop 11/25/23 11:51 Document 12/02/23 11:37 [facility] wound center 12/02/23 11:38 [facility] 11/18/23 11/25/23 12/02/23 11:36 11:50 11:37 Wound Care Center Nurse 3 #1 LT LAT LEG -Ulcer Cleansing Not Cleansed Not Cleansed Rinsed/ Irrigated with Saline -Foul Odor after Cleansing No No -Negative Pressure Wound Therapy Continue -Setting (mmHg) 150 -Negative Pressure is Continuous -Primary Dressing Applied Mepilex Border, Mepilex Border, Nugauze, Nugauze, Iodoform 1/4in Iodoform 1/4in -Primary Dressing Covered/Secured with Dry Gauze -NPWT Application Charge NPWT & Debridement (nc ) -Mepilex Border 1 1 -Nugauze, Iodoform 1/4in 1 1 Left -Lotion applied to leg before No compression wrap -Tubular Bandage Single Layer -Size of Tubigrip Used Size E -Size E ($) 1 -Other refused Treatment Response Procedure Tolerated Well Pain Scale: 0-10 Numeric Is Patient Pain Free? Yes Yes Yes Teaching: Wound Center Dressing Your Wound -Person Taught Patient Patient -Teaching Method Discussion, Discussion, Demonstration Demonstration -Response to teaching Verbalize Verbalize understanding understanding WC - Visit Discharge Discharge Condition Stable Stable Stable Ambulatory Status Ambulatory Ambulatory Ambulatory Transportation Private Auto Private Auto Private Auto Clinical Summary of Care Provided Yes Yes Assessment/Plan Assessment/Plan (1) Pain in left lower leg: CODE(S): M79.662 - Pain in left lower leg (2) Nonhealing surgical wound: CODE(S): T81.89XA - Other complications of procedures, not elsewhere classified, initial encounter QUALIFIERS: Encounter type: initial encounter Qualified Code(s): T81.89XA - Other complications of procedures, not elsewhere classified, initial encounter PLAN: Continue packing with quarter inch iodoform gauze and absorbent dressing every day and follow-up in 1 week (3) Infected wound: CODE(S): T14.8XXA - Other injury of unspecified body region, initial encounter; L08.9 - Local infection of the skin and subcutaneous tissue, unspecified (4) Edema of left lower leg: CODE(S): R60.0 - Localized edema
[2023-12-09 11:18] VITALS: BP 121/80; PULSE 64; RESP 18; TEMP 35.9; BMI 61.2
--- NOTE | 2023-12-09 12:50 | PN.PCM_ITS ---
History of Present Illness Date of Service: 12/09/23 Chief Complaint: Follow-up on an nonhealing I&D done in the hospital on his left lower leg. History of Wound: 58-year-old white male with an open wound on his left lower leg developing after he had developed cellulitis after his last chemo over a mon ago. It then developed into a boil that was I&D in the emergency room. They did do cultures that were rare patient was started on doxycycline and he is packing it with iodoform gauze. No odor is noted some erythema around the edges leg is swollen with a lot of tissue along around the edges of the wound also. He is currently battling leukemia and non-Hodgkin's lymphoma. Progress of Wound: Wound VAC has been off 2 week and patient has been packing with quarter inch iodoform gauze doing very well it still continues to get smaller he is having a harder time getting the packing in. No sign of infection we will continue packing for another week and see what happens. Tunneling is much better it is a quarter of what it used to be and hopefully the hole will close up before we can finish. Objective Data Objective Data Same as above continue with the iodoform packing seems to be working well for him still hole is much smaller it is closing very well. Vital Signs: Vital Signs Temp Pulse Resp BP 96.7 F L 64 18 121/80 H 12/09/23 11:18 12/09/23 11:18 12/09/23 11:18 12/09/23 11:18 Weight: 451 lb 15.162 oz Body Mass Index (BMI) 61.2 Physical Exam Const alert, oriented x3, no apparent distress, average body habitus and well nourished General Appearance: cooperative, comfortable and well kempt HEENT normocephalic, head/scalp atraumatic, hearing grossly normal bilaterally, moist oral mucous membranes and oropharynx normal Eyes PERRL and EOMs intact bilaterally Neck no lymphadenopathy and supple Lymph Lymphatic: no lymphadenopathy noted Resp normal respiratory effort, normal air movement, no retractions, no use of accessory muscles and clear to auscultation bilaterally Cardio regular rate, regular rhythm, S1 normal heart sound, S2 normal heart sound and no murmurs Cardio Narrative: afib, rate poorly controlled Rate: tachycardic GI normal to inspection, nondistended, normoactive bowel sounds, soft to palpation, non-tender and non-distended Extremity Extremity Narrative: LLE wrapped in bandage. General Extremity: no tenderness to palpation of joints or extremities Skin Skin Narrative: LLE wrapped in bandage. Neuro oriented x3, CN's II-XII intact bilaterally, moves all extremities and no focal motor deficits Sensorium / Orientation: awake, alert, oriented to person, oriented to place and oriented to time Speech: speech normal Motor Exam: strength 5/5 throughout and general weakness Psych thought process normal, cooperative and affect normal Appearance: appropriate Debridement Note Debridement Note Wound debrided: Left lower leg wound nonhealing from I&D Type of Debridement: Excisional debridement Anesthesia Used: 5% Lidocaine Gel Depth: Down to and including healthy tissue and in the subcutaneous layer Percentage of wound debrided: 100 Instrument Used: 5mm curette Tissue Removed: Fibrin devitalized tissue slough Severity: Fat Layer Exposed Amount of bleeding with debridement: Mild Bleeding Controlled with: Compression and gauze Post-Debridement Measurements and Additional Note: Post-Debridement Measurements/Treatment - Nurse 1 - General Ulcer Assessment Start: 11/18/23 07:37 Freq: Status: Active Protocol: CADY.KAVIN Activity Type Activity Date Activity User E-sign Co-sign Detail Recorded Client Recorded Date Recorded By Document 11/18/23 11:10 Desktop 11/18/23 11:13 RB Document 11/25/23 11:35 RB Desktop 11/25/23 11:39 RB Document 12/02/23 11:20 wound center 12/02/23 11:23 RB Document 12/09/23 11:18 wound center 12/09/23 11:22 RB 11/18/23 11/25/23 12/02/23 11:10 11:35 11:20 - Today's Visit Information Type of service Follow-up Visit Follow-up Visit Follow-up Visit (Physician/FIRE AND SAFETY HELPER (Physician/FIRE AND SAFETY HELPER (Physician/FIRE AND SAFETY HELPER ) ) ) Arrival Mode Ambulatory Ambulatory Ambulatory Transfer Assistance None None None Patient Identification Verified (Name & Yes Yes Yes ) Patient Requires Transmission-Based No No No Precautions Height and Weight Body Mass Index (BMI) 61.2 61.2 61.2 BMI Classification Obese Obese Obese Vital Signs Temperature (97.8 F-99.1 F) 96.6 F L 97.2 F L 96.2 F L Temperature Source Temporal Temporal Temporal Pulse Rate (60-100) 78 85 73 Pulse Location Monitor Monitor Monitor Respiratory Rate (12-18) 18 18 18 Respiratory rate source Observation Observation Observation Blood Pressure (90/60-120/80) 129/80 H 117/70 106/71 Blood Pressure Mean (mm Hg) 96 85 82 Source Monitor Monitor Monitor Position Semi-Fowlers Semi-Fowlers Semi-Fowlers Blood Pressure Location Left Arm Left Arm Left Arm History Since Last Visit- (Skip if this is Patient's initial visit) Have you changed medications since your No No No last visit? Any new allergies or adverse reactions No No No Had a fall/change in ADL's that may No No No increase risk of falls Signs or symptoms of abuse and/or No No No neglect since last visit Have you been in the hospital since your No No No last visit? Has dressing in place as prescribed Yes Yes Yes Has compression in place as prescribed Yes Yes No Has offloadiing in place as prescribed No No No Experienced any changes in pain level or No No No management Pain Scale: 0-10 Numeric Is Patient Pain Free? Yes Yes Yes 12/09/23 11:18 - Today's Visit Information Type of service Follow-up Visit (Physician/FIRE AND SAFETY HELPER ) Arrival Mode Ambulatory Transfer Assistance None Patient Identification Verified (Name & Yes ) Patient Requires Transmission-Based No Precautions Height and Weight Body Mass Index (BMI) 61.2 BMI Classification Obese Vital Signs Temperature (97.8 F-99.1 F) 96.7 F L Temperature Source Temporal Pulse Rate (60-100) 64 Pulse Location Monitor Respiratory Rate (12-18) 18 Respiratory rate source Observation Blood Pressure (90/60-120/80) 121/80 H Blood Pressure Mean (mm Hg) 93 Source Monitor Position Semi-Fowlers Blood Pressure Location Left Arm History Since Last Visit- (Skip if this is Patient's initial visit) Have you changed medications since your No last visit? Any new allergies or adverse reactions No Had a fall/change in ADL's that may No increase risk of falls Signs or symptoms of abuse and/or No neglect since last visit Have you been in the hospital since your No last visit? Has dressing in place as prescribed Yes Has compression in place as prescribed Yes Has offloadiing in place as prescribed No Experienced any changes in pain level or No management Pain Scale: 0-10 Numeric Is Patient Pain Free? Yes WC - Nurse 1 - General Ulcer Measurement Start: 11/18/23 07:37 Freq: Status: Active Protocol: Activity Type Activity Date Activity User E-sign Co-sign Detail Recorded Client Recorded Date Recorded By Document 11/18/23 11:10 RB Desktop 11/18/23 11:13 RB Document 11/25/23 11:35 RB Desktop 11/25/23 11:39 RB Document 12/02/23 11:20 RB wound center 12/02/23 11:23 RB Document 12/09/23 11:18 RB wound center 12/09/23 11:22 RB 11/18/23 11/25/23 12/02/23 11:10 11:35 11:20 Wound Center Nurse 1 #1 LT LAT LEG -Combined with other wound No No No -Current Size (cm) - Length 0.5 0.4 0.2 -Current Size (cm) - Width 0.3 0.3 0.3 -Current Size (cm) - Depth 1.5 1.5 0.6 -Total Square Cm 0.15 0.12 0.06 -Tunneling No No No -Undermining/Tunneling No No No -Circular Undermining No No No -Exudate Amt Large Medium Medium -Exudate Type Serosanguineous Serosanguineous Serosanguineous -Wound Margin Distinct, Distinct, Distinct, Outline Outline Outline Attached Attached Attached -Granulation Amt Medium (34-66%) Medium (34-66%) Medium (34-66%) -Granulation Quality [place] -Slough/Fibrin Yes Yes Yes -Necrosis Amt Medium (34-66%) Small (1-33%) Medium (34-66%) -Necrotic Tissue Type Adherent Slough Adherent Slough Adherent Slough -Structure Exposed N/A N/A N/A -Texture ([place]-wound Skin Appearance) Not Assessed, Assessed, Assessed Scarring Scarring -Moisture ([place]-wound Skin Appearance) Assessed Assessed Assessed -Color ([place]-wound Skin Appearance) Assessed Assessed Assessed -Temperature ([place]-wound Skin No Abnormality No Abnormality No Abnormality Appearance) (Pt Warm) (Pt Warm) (Pt Warm) -Tenderness on Palpation ([place]-wound No No No Skin Appearance) -Ulcer Cleansing Wound Cleanser Wound Cleanser Wound Cleanser -Foul Odor after Cleansing No No No -Anesthetic Used 5% Lidocaine 5% Lidocaine 5% Lidocaine Gel Gel Gel Lower Limb Edema Present Yes Yes Yes Left Calf (cm) 38 38.2 39 Left Ankle (cm) 23.5 23.5 23.5 12/09/23 11:18 Wound Center Nurse 1 #1 LT LAT LEG -Combined with other wound No -Current Size (cm) - Length 0.3 -Current Size (cm) - Width 0.2 -Current Size (cm) - Depth 0.9 -Total Square Cm 0.06 -Tunneling No -Undermining/Tunneling No -Circular Undermining No -Exudate Amt Medium -Exudate Type Serosanguineous -Wound Margin Distinct, Outline Attached -Granulation Amt Medium (34-66%) -Granulation Quality [place] -Slough/Fibrin Yes -Necrosis Amt Medium (34-66%) -Necrotic Tissue Type Adherent Slough -Structure Exposed N/A -Texture ([place]-wound Skin Appearance) Assessed -Moisture ([place]-wound Skin Appearance) Assessed -Color ([place]-wound Skin Appearance) Assessed -Temperature ([place]-wound Skin No Abnormality Appearance) (Pt Warm) -Tenderness on Palpation ([place]-wound No Skin Appearance) -Ulcer Cleansing Wound Cleanser -Foul Odor after Cleansing No -Anesthetic Used 5% Lidocaine Gel Lower Limb Edema Present Yes Left Calf (cm) 39.4 Left Ankle (cm) 24.2 WC - Nurse 2 - General Ulcer CM Notes Start: 11/18/23 07:37 Freq: Status: Active Protocol: Activity Type Activity Date Activity User E-sign Co-sign Detail Recorded Client Recorded Date Recorded By Document 11/18/23 11:21 [facility] Desktop 11/18/23 11:30 [facility] Document 11/25/23 11:40 [facility] Desktop 11/25/23 11:45 [facility] Document 12/02/23 11:30 [facility] wound center 12/02/23 11:37 [facility] Document 12/09/23 11:27 [facility] [id number] 12/09/23 11:31 [facility] 11/18/23 11/25/23 12/02/23 11:21 11:40 11:30 Wound Center Nurse 2 #1 LT LAT LEG -Time 11:24 11:40 11:30 -Correct Patient Yes Yes Yes -Correct Side, Site, Position Yes Yes Yes -Correct Procedure Yes Yes Yes -Procedure Performed Yes Yes Yes -Type of Procedure Debridement Debridement Debridement -Clinical Debridement Subcutaneous Subcutaneous Subcutaneous -Tissue Removed Subcutaneous Subcutaneous Subcutaneous -Post Debridement (cm) - Length 0.4 0.8 0.4 -Post Debridement (cm) - Width 0.3 0.3 0.2 -Post Debridement (cm) - Depth 0.8 1.2 0.6 -Total Square (Post) (cm) 0.12 0.24 0.08 -Area of Debridement (cm) - Length 0.8 0.4 -Area of Debridement (cm) - Width 0.3 0.2 -Total Square (Area) (cm) 0.24 0.08 -Tunneling Yes Yes Yes -Tunneling Position (O'clock) 7 7 7 -Tunneling Distance (cm) 1.8 1.2 1 -Undermining/Tunneling No No No -Circular Undermining No No No -Wound/Ulcer Outcome Not Healed Not Healed Not Healed -Ulcer Cleansing Rinsed/ Rinsed/ Irrigated with Irrigated with Saline Saline -Foul Odor after Cleansing No No No -Bioengineered Tissue No No No -Bleeding Controlled with Pressure Pressure Pressure -Treatment Response Procedure Procedure Procedure Tolerated Well Tolerated Well Tolerated Well -Offloading No No -Debridement - Subq, 1st 20sq cm Yes Yes Yes Pain Scale: 0-10 Numeric Is Patient Pain Free? Yes Yes Yes 12/09/23 11:27 Wound Center Nurse 2 #1 LT LAT LEG -Time 11:27 -Correct Patient Yes -Correct Side, Site, Position Yes -Correct Procedure Yes -Procedure Performed Yes -Type of Procedure Debridement -Clinical Debridement Subcutaneous -Tissue Removed Subcutaneous -Post Debridement (cm) - Length 0.4 -Post Debridement (cm) - Width 0.2 -Post Debridement (cm) - Depth 1.3 -Total Square (Post) (cm) 0.08 -Area of Debridement (cm) - Length 0.4 -Area of Debridement (cm) - Width 0.2 -Total Square (Area) (cm) 0.08 -Tunneling Yes -Tunneling Position (O'clock) 7 -Tunneling Distance (cm) 0.7 -Undermining/Tunneling No -Circular Undermining No -Wound/Ulcer Outcome Not Healed -Ulcer Cleansing Rinsed/ Irrigated with Saline -Foul Odor after Cleansing No -Bioengineered Tissue No -Bleeding Controlled with Pressure -Treatment Response Procedure Tolerated Well -Offloading -Debridement - Subq, 1st 20sq cm Yes Pain Scale: 0-10 Numeric Is Patient Pain Free? Yes - Nurse 3 - General Ulcer D/C NN Start: 11/18/23 07:37 Freq: Status: Active Protocol: Activity Type Activity Date Activity User E-sign Co-sign Detail Recorded Client Recorded Date Recorded By Document 11/18/23 11:36 [facility] Desktop 11/18/23 11:37 [facility] Document 11/25/23 11:50 Desktop 11/25/23 11:51 Document 12/02/23 11:37 [facility] wound center 12/02/23 11:38 [facility] Document 12/09/23 11:35 [facility] 1606-1-10 12/09/23 11:35 [facility] 11/18/23 11/25/23 12/02/23 11:36 11:50 11:37 Wound Care Center Nurse 3 #1 LT LAT LEG -Ulcer Cleansing Not Cleansed Not Cleansed Rinsed/ Irrigated with Saline -Foul Odor after Cleansing No No -Negative Pressure Wound Therapy Continue -Setting (mmHg) 150 -Negative Pressure is Continuous -Primary Dressing Applied Mepilex Border, Mepilex Border, Nugauze, Nugauze, Iodoform 1/4in Iodoform 1/4in -Other Dressing -Primary Dressing Covered/Secured with Dry Gauze -NPWT Application Charge NPWT & Debridement (nc ) -Mepilex Border 1 1 -Nugauze, Iodoform 1/4in 1 1 Left -Lotion applied to leg before No compression wrap -Tubular Bandage Single Layer -Size of Tubigrip Used Size E -Size E ($) 1 -Other refused Treatment Response Procedure Tolerated Well Pain Scale: 0-10 Numeric Is Patient Pain Free? Yes Yes Yes Teaching: Wound Center Dressing Your Wound -Person Taught Patient Patient -Teaching Method Discussion, Discussion, Demonstration Demonstration -Response to teaching Verbalize Verbalize understanding understanding WC - Visit Discharge Discharge Condition Stable Stable Stable Ambulatory Status Ambulatory Ambulatory Ambulatory Transportation Private Auto Private Auto Private Auto Clinical Summary of Care Provided Yes Yes 12/09/23 11:35 Wound Care Center Nurse 3 #1 LT LAT LEG -Ulcer Cleansing -Foul Odor after Cleansing -Negative Pressure Wound Therapy -Setting (mmHg) -Negative Pressure is -Primary Dressing Applied -Other Dressing 1/4 IN NUGAUZE; FOAM -Primary Dressing Covered/Secured with -NPWT Application Charge -Mepilex Border -Nugauze, Iodoform 1/4in Left -Lotion applied to leg before compression wrap -Tubular Bandage -Size of Tubigrip Used -Size E ($) -Other REFUSED Treatment Response Procedure Tolerated Well Pain Scale: 0-10 Numeric Is Patient Pain Free? Yes Teaching: Wound Center Dressing Your Wound -Person Taught -Teaching Method -Response to teaching WC - Visit Discharge Discharge Condition Stable Ambulatory Status Ambulatory Transportation Private Auto Clinical Summary of Care Provided Assessment/Plan Assessment/Plan (1) Pain in left lower leg: CODE(S): M79.662 - Pain in left lower leg (2) Nonhealing surgical wound: CODE(S): T81.89XA - Other complications of procedures, not elsewhere classified, initial encounter QUALIFIERS: Encounter type: initial encounter Qualified Code(s): T81.89XA - Other complications of procedures, not elsewhere classified, initial encounter PLAN: Continue packing with quarter inch iodoform gauze and absorbent dressing every day and follow-up in 1 week (3) Infected wound: CODE(S): T14.8XXA - Other injury of unspecified body region, initial encounter; L08.9 - Local infection of the skin and subcutaneous tissue, unspecified (4) Edema of left lower leg: CODE(S): R60.0 - Localized edema
[2023-12-16 11:28] VITALS: BP 124/74; PULSE 56; RESP 18; TEMP 36.2; BMI 61.2
--- NOTE | 2023-12-16 13:37 | PN.PCM_ITS ---
History of Present Illness Date of Service: 12/16/23 Chief Complaint: Follow-up on an nonhealing I&D done in the hospital on his left lower leg. History of Wound: 58-year-old white male with an open wound on his left lower leg developing after he had developed cellulitis after his last chemo over a thu ago. It then developed into a boil that was I&D in the emergency room. They did do cultures that were rare patient was started on doxycycline and he is packing it with iodoform gauze. No odor is noted some erythema around the edges leg is swollen with a lot of tissue along around the edges of the wound also. He is currently battling leukemia and non-Hodgkin's lymphoma. Progress of Wound: Wound is healed patient be discharged from the wound center can follow-up as needed Subjective Subjective Has a small pinhole that he can lay some Aquacel extra on for the next week and then he can finish that on his own does not need to come back Objective Data Objective Data Wound is well-healed patient will have no problems at home can follow-up as needed discharge from the wound center Vital Signs: Vital Signs Temp Pulse Resp BP 97.2 F L 56 L 18 124/74 H 12/16/23 11:28 12/16/23 11:28 12/16/23 11:28 12/16/23 11:28 Weight: 451 lb 15.162 oz Body Mass Index (BMI) 61.2 Physical Exam Const alert, oriented x3, no apparent distress, average body habitus and well nourished General Appearance: cooperative, comfortable and well kempt HEENT normocephalic, head/scalp atraumatic, hearing grossly normal bilaterally, moist oral mucous membranes and oropharynx normal Eyes PERRL and EOMs intact bilaterally Neck no lymphadenopathy and supple Lymph Lymphatic: no lymphadenopathy noted Resp normal respiratory effort, normal air movement, no retractions, no use of accessory muscles and clear to auscultation bilaterally Cardio regular rate, regular rhythm, S1 normal heart sound, S2 normal heart sound and no murmurs Cardio Narrative: afib, rate poorly controlled Rate: tachycardic GI normal to inspection, nondistended, normoactive bowel sounds, soft to palpation, non-tender and non-distended Extremity Extremity Narrative: LLE wrapped in bandage. General Extremity: no tenderness to palpation of joints or extremities Skin Skin Narrative: LLE wrapped in bandage. Neuro oriented x3, CN's II-XII intact bilaterally, moves all extremities and no focal motor deficits Sensorium / Orientation: awake, alert, oriented to person, oriented to place and oriented to time Speech: speech normal Motor Exam: strength 5/5 throughout and general weakness Psych thought process normal, cooperative and affect normal Appearance: appropriate Debridement Note Debridement Note No debridement was completed: No debridement was completed today Post-Debridement Measurements and Additional Note: Post-Debridement Measurements/Treatment - Nurse 1 - General Ulcer Assessment Start: 11/18/23 07:37 Freq: Status: Active Protocol: [employer] Activity Type Activity Date Activity User E-sign Co-sign Detail Recorded Client Recorded Date Recorded By Document 11/18/23 11:10 RB Desktop 11/18/23 11:13 RB Document 11/25/23 11:35 RB Desktop 11/25/23 11:39 RB Document 12/02/23 11:20 RB wound center 12/02/23 11:23 RB Document 12/09/23 11:18 RB wound center 12/09/23 11:22 RB Document 12/16/23 11:28 DL [id number] 12/16/23 12:02 DL 11/18/23 11/25/23 12/02/23 11:10 11:35 11:20 - Today's Visit Information Type of service Follow-up Visit Follow-up Visit Follow-up Visit (Physician/[employer]ER (Physician/[employer]UFA[employer]URER (Physician/[employer]URER ) ) ) Arrival Mode Ambulatory Ambulatory Ambulatory Transfer Assistance None None None Patient Identification Verified (Name & Yes Yes Yes ) Patient Requires Transmission-Based No No No Precautions Height and Weight Body Mass Index (BMI) 61.2 61.2 61.2 BMI Classification Obese Obese Obese Vital Signs Temperature (97.8 F-99.1 F) 96.6 F L 97.2 F L 96.2 F L Temperature Source Temporal Temporal Temporal Pulse Rate (60-100) 78 85 73 Pulse Location Monitor Monitor Monitor Respiratory Rate (12-18) 18 18 18 Respiratory rate source Observation Observation Observation Blood Pressure (90/60-120/80) 129/80 H 117/70 106/71 Blood Pressure Mean (mm Hg) 96 85 82 Source Monitor Monitor Monitor Position Semi-Fowlers Semi-Fowlers Semi-Fowlers Blood Pressure Location Left Arm Left Arm Left Arm History Since Last Visit- (Skip if this is Patient's initial visit) Have you changed medications since your No No No last visit? Any new allergies or adverse reactions No No No Had a fall/change in ADL's that may No No No increase risk of falls Signs or symptoms of abuse and/or No No No neglect since last visit Have you been in the hospital since your No No No last visit? Has dressing in place as prescribed Yes Yes Yes Has compression in place as prescribed Yes Yes No Has offloadiing in place as prescribed No No No Experienced any changes in pain level or No No No management Pain Scale: 0-10 Numeric Is Patient Pain Free? Yes Yes Yes 12/09/23 12/16/23 11:18 11:28 WC - Today's Visit Information Type of service Follow-up Visit Follow-up Visit (Physician/[employer]URER (Physician/[employer]URER ) ) Arrival Mode Ambulatory Ambulatory Transfer Assistance None None Patient Identification Verified (Name & Yes Yes ) Patient Requires Transmission-Based No No Precautions Height and Weight Body Mass Index (BMI) 61.2 61.2 BMI Classification Obese Obese Vital Signs Temperature (97.8 F-99.1 F) 96.7 F L 97.2 F L Temperature Source Temporal Temporal Pulse Rate (60-100) 64 56 L Pulse Location Monitor Monitor Respiratory Rate (12-18) 18 18 Respiratory rate source Observation Observation Blood Pressure (90/60-120/80) 121/80 H 124/74 H Blood Pressure Mean (mm Hg) 93 90 Source Monitor Monitor Position Semi-Fowlers Blood Pressure Location Left Arm History Since Last Visit- (Skip if this is Patient's initial visit) Have you changed medications since your No No last visit? Any new allergies or adverse reactions No No Had a fall/change in ADL's that may No No increase risk of falls Signs or symptoms of abuse and/or No No neglect since last visit Have you been in the hospital since your No No last visit? Has dressing in place as prescribed Yes Yes Has compression in place as prescribed Yes No Has offloadiing in place as prescribed No N/A Experienced any changes in pain level or No Yes management Pain Scale: 0-10 Numeric Is Patient Pain Free? Yes Yes WC - Nurse 1 - General Ulcer Measurement Start: 11/18/23 07:37 Freq: Status: Active Protocol: Activity Type Activity Date Activity User E-sign Co-sign Detail Recorded Client Recorded Date Recorded By Document 11/18/23 11:10 RB Desktop 11/18/23 11:13 RB Document 11/25/23 11:35 RB Desktop 11/25/23 11:39 RB Document 12/02/23 11:20 RB wound center 12/02/23 11:23 RB Document 12/09/23 11:18 RB wound center 12/09/23 11:22 RB Document 12/16/23 11:28 DL [id number] 12/16/23 12:02 DL 11/18/23 11/25/23 12/02/23 11:10 11:35 11:20 Wound Center Nurse 1 #1 LT LAT LEG -Combined with other wound No No No -Current Size (cm) - Length 0.5 0.4 0.2 -Current Size (cm) - Width 0.3 0.3 0.3 -Current Size (cm) - Depth 1.5 1.5 0.6 -Total Square Cm 0.15 0.12 0.06 -Tunneling No No No -Undermining/Tunneling No No No -Circular Undermining No No No -Exudate Amt Large Medium Medium -Exudate Type Serosanguineous Serosanguineous Serosanguineous -Wound Margin Distinct, Distinct, Distinct, Outline Outline Outline Attached Attached Attached -Granulation Amt Medium (34-66%) Medium (34-66%) Medium (34-66%) -Granulation Quality Cave-In-Rock Cave-In-Rock Cave-In-Rock -Slough/Fibrin Yes Yes Yes -Necrosis Amt Medium (34-66%) Small (1-33%) Medium (34-66%) -Necrotic Tissue Type Adherent Slough Adherent Slough Adherent Slough -Structure Exposed N/A N/A N/A -Texture ([place]-wound Skin Appearance) Not Assessed, Assessed, Assessed Scarring Scarring -Moisture ([place]-wound Skin Appearance) Assessed Assessed Assessed -Color ([place]-wound Skin Appearance) Assessed Assessed Assessed -Temperature ([place]-wound Skin No Abnormality No Abnormality No Abnormality Appearance) (Pt Warm) (Pt Warm) (Pt Warm) -Tenderness on Palpation ([place]-wound No No No Skin Appearance) -Ulcer Cleansing Wound Cleanser Wound Cleanser Wound Cleanser -Foul Odor after Cleansing No No No -Anesthetic Used 5% Lidocaine 5% Lidocaine 5% Lidocaine Gel Gel Gel Lower Limb Edema Present Yes Yes Yes Left Calf (cm) 38 38.2 39 Left Ankle (cm) 23.5 23.5 23.5 12/09/23 12/16/23 11:18 11:28 Wound Center Nurse 1 #1 LT LAT LEG -Combined with other wound No -Current Size (cm) - Length 0.3 0.2 -Current Size (cm) - Width 0.2 0.2 -Current Size (cm) - Depth 0.9 0.2 -Total Square Cm 0.06 0.04 -Tunneling No -Undermining/Tunneling No -Circular Undermining No -Exudate Amt Medium Small -Exudate Type Serosanguineous Yellow/Green -Wound Margin Distinct, Distinct, Outline Outline Attached Attached -Granulation Amt Medium (34-66%) Small (1-33%) -Granulation Quality Cave-In-Rock Cave-In-Rock -Slough/Fibrin Yes -Necrosis Amt Medium (34-66%) None Present (0 %) -Necrotic Tissue Type Adherent Slough -Structure Exposed N/A N/A -Texture ([place]-wound Skin Appearance) Assessed Scarring -Moisture ([place]-wound Skin Appearance) Assessed No Abnormality -Color ([place]-wound Skin Appearance) Assessed Hemosiderin Staining -Temperature ([place]-wound Skin No Abnormality No Abnormality Appearance) (Pt Warm) (Pt Warm) -Tenderness on Palpation ([place]-wound No No Skin Appearance) -Ulcer Cleansing Wound Cleanser Soap and Water -Foul Odor after Cleansing No No -Anesthetic Used 5% Lidocaine 5% Lidocaine Gel Gel Lower Limb Edema Present Yes Left Calf (cm) 39.4 39 Left Ankle (cm) 24.2 23 - Nurse 2 - General Ulcer CM Notes Start: 11/18/23 07:37 Freq: Status: Active Protocol: Activity Type Activity Date Activity User E-sign Co-sign Detail Recorded Client Recorded Date Recorded By Document 11/18/23 11:21 [facility] Desktop 11/18/23 11:30 [facility] Document 11/25/23 11:40 [facility] Desktop 11/25/23 11:45 [facility] Document 12/02/23 11:30 [facility] wound center 12/02/23 11:37 [facility] Document 12/09/23 11:27 [facility] 1606-1-10 05/22/24 11:31 [facility] Document 12/16/23 11:47 [place] [id number] 12/16/23 11:47 DS 11/18/23 11/25/23 12/02/23 11:21 11:40 11:30 Wound Center Nurse 2 #1 LAT LEG -Time 11: 11:40 11:30 -Correct Patient Yes Yes Yes -Correct Side, Site, Position Yes Yes Yes -Correct Procedure Yes Yes Yes -Procedure Performed Yes Yes Yes -Type of Procedure Debridement Debridement Debridement -Clinical Debridement Subcutaneous Subcutaneous Subcutaneous -Tissue Removed Subcutaneous Subcutaneous Subcutaneous -Post Debridement (cm) - Length 0.4 0.8 0.4 -Post Debridement (cm) - Width 0.3 0.3 0.2 -Post Debridement (cm) - Depth 0.8 1.2 0.6 -Total Square (Post) (cm) 0.12 0.24 0.08 -Area of Debridement (cm) - Length 0.8 0.4 -Area of Debridement (cm) - Width 0.3 0.2 -Total Square (Area) (cm) 0.24 0.08 -Tunneling Yes Yes Yes -Tunneling Position (O'clock) 7 7 7 -Tunneling Distance (cm) 1.8 1.2 1 -Undermining/Tunneling No No No -Circular Undermining No No No -Wound/Ulcer Outcome Not Healed Not Healed Not Healed -Ulcer Cleansing Rinsed/ Rinsed/ Irrigated with Irrigated with Saline Saline -Foul Odor after Cleansing No No No -Bioengineered Tissue No No No -Bleeding Controlled with Pressure Pressure Pressure -Treatment Response Procedure Procedure Procedure Tolerated Well Tolerated Well Tolerated Well -Offloading No No -Debridement - Subq, 1st 20sq cm Yes Yes Yes Pain Scale: 0-10 Numeric Is Patient Pain Free? Yes Yes Yes 12/09/23 12/16/23 11:27 11:47 Wound Center Nurse 2 #1 LAT LEG -Time 11: 11:47 -Correct Patient Yes No -Correct Side, Site, Position Yes No -Correct Procedure Yes No -Procedure Performed Yes No -Type of Procedure Debridement -Clinical Debridement Subcutaneous -Tissue Removed Subcutaneous -Post Debridement (cm) - Length 0.4 0 -Post Debridement (cm) - Width 0.2 0 -Post Debridement (cm) - Depth 1.3 0 -Total Square (Post) (cm) 0.08 0 -Area of Debridement (cm) - Length 0.4 0 -Area of Debridement (cm) - Width 0.2 0 -Total Square (Area) (cm) 0.08 0 -Tunneling Yes -Tunneling Position (O'clock) 7 -Tunneling Distance (cm) 0.7 -Undermining/Tunneling No -Circular Undermining No -Wound/Ulcer Outcome Not Healed Healed- Epithelialized -Ulcer Cleansing Rinsed/ Irrigated with Saline -Foul Odor after Cleansing No -Bioengineered Tissue No -Bleeding Controlled with Pressure -Treatment Response Procedure Tolerated Well -Offloading -Debridement - Subq, 1st 20sq cm Yes Pain Scale: 0-10 Numeric Is Patient Pain Free? Yes Yes WC - Nurse 3 - General Ulcer D/C NN Start: 11/18/23 07:37 Freq: Status: Active Protocol: Activity Type Activity Date Activity User E-sign Co-sign Detail Recorded Client Recorded Date Recorded By Document 11/18/23 11:36 [facility] Desktop 11/18/23 11:37 [facility] Document 11/25/23 11:50 Desktop 11/25/23 11:51 Document 12/02/23 11:37 [facility] wound center 12/02/23 11:38 [facility] Document 12/09/23 11:35 [facility] 1606-1-10 12/09/23 11:35 [facility] Document 12/16/23 11:50 [facility] [id number] 12/16/23 11:50 [facility] 11/18/23 11/25/23 12/02/23 11:36 11:50 11:37 Wound Care Center Nurse 3 #1 LT LAT LEG -Ulcer Cleansing Not Cleansed Not Cleansed Rinsed/ Irrigated with Saline -Foul Odor after Cleansing No No -Negative Pressure Wound Therapy Continue -Setting (mmHg) 150 -Negative Pressure is Continuous -Primary Dressing Applied Mepilex Border, Mepilex Border, Nugauze, Nugauze, Iodoform 1/4in Iodoform 1/4in -Other Dressing -Primary Dressing Covered/Secured with Dry Gauze -NPWT Application Charge NPWT & Debridement (nc ) -Aquacel Extra -Mepilex Border 1 1 -Nugauze, Iodoform 1/4in 1 1 Left -Lotion applied to leg before No compression wrap -Tubular Bandage Single Layer -Size of Tubigrip Used Size E -Size E ($) 1 -Other refused Treatment Response Procedure Tolerated Well Pain Scale: 0-10 Numeric Is Patient Pain Free? Yes Yes Yes Teaching: Wound Center Dressing Your Wound -Person Taught Patient Patient -Teaching Method Discussion, Discussion, Demonstration Demonstration -Response to teaching Verbalize Verbalize understanding understanding WC - Visit Discharge Discharge Condition Stable Stable Stable Ambulatory Status Ambulatory Ambulatory Ambulatory Transportation [facility] [employer] Clinical Summary of Care Provided Yes Yes 12/09/23 12/16/23 11:35 11:50 Wound Care Center Nurse 3 #1 LT LAT LEG -Ulcer Cleansing Rinsed/ Irrigated with Saline -Foul Odor after Cleansing No -Negative Pressure Wound Therapy -Setting (mmHg) -Negative Pressure is -Primary Dressing Applied Aquacel Extra -Other Dressing 1/4 IN NUGAUZE; foam drsg FOAM -Primary Dressing Covered/Secured with -NPWT Application Charge -Aquacel Extra 1 -Mepilex Border -Nugauze, Iodoform 1/4in Left -Lotion applied to leg before compression wrap -Tubular Bandage Single Layer -Size of Tubigrip Used Size E -Size E ($) 1 -Other REFUSED Treatment Response Procedure Procedure Tolerated Well Tolerated Well Pain Scale: 0-10 Numeric Is Patient Pain Free? Yes Yes Teaching: Wound Center Dressing Your Wound -Person Taught -Teaching Method -Response to teaching WC - Visit Discharge Discharge Condition Stable Stable Ambulatory Status Ambulatory Ambulatory Transportation [facility] [employer] Clinical Summary of Care Provided Assessment/Plan Assessment/Plan (1) Pain in left lower leg: CODE(S): M79.662 - Pain in left lower leg (2) Nonhealing surgical wound: CODE(S): T81.89XA - Other complications of procedures, not elsewhere classified, initial encounter QUALIFIERS: Encounter type: initial encounter Qualified Code(s): T81.89XA - Other complications of procedures, not elsewhere classified, initial encounter PLAN: Discharge from the wound center and follow-up as needed (3) Infected wound: CODE(S): T14.8XXA - Other injury of unspecified body region, initial encounter; L08.9 - Local infection of the skin and subcutaneous tissue, unspecified (4) Edema of left lower leg: CODE(S): R60.0 - Localized edema
== END 2023-12-17 15:23 | disposition home or self-care (01) ==
LOC: WC 11:15
PROVIDERS: PCP Internal Medicine; Referring Provider Student in an Organized Health Care Education/Training Program; Visit Provider Nurse Practitioner
DX: T81.89XA Other complications of procedures, not elsewhere classified, initial encounter (principal); C85.90 Non-Hodgkin lymphoma, unspecified, unspecified site; M79.662 Pain in left lower leg; R60.0 Localized edema; T14.8XXA Other injury of unspecified body region, initial encounter; L08.9 Local infection of the skin and subcutaneous tissue, unspecified
CPT/HCPCS: 11042; 99213; G0463

== ENCOUNTER → 2024-06-22 | Outpatient (CLI) | payer OTHER, SELFPAY ==
[2024-06-22 15:59] LABS: Cholesterol 142 mg/dL (200); High Density Lipoprotein 33 mg/dL; PSA,Total - Annual Screen 0.47 ng/mL (0.00-4.00); Triglycerides 165 mg/dL; Very Low Density Lipoprotein 33 mg/dL (5-40)
== END | disposition home or self-care (01) ==
LOC: BIMLAB 11:33
PROVIDERS: PCP Internal Medicine; Referring Provider Internal Medicine; Visit Provider Internal Medicine
DX: I10 Essential (primary) hypertension (principal); N40.0 Benign prostatic hyperplasia without lower urinary tract symptoms
CPT/HCPCS: 36415; 80061; 84153; G0103

== ENCOUNTER → 2024-07-08 | Outpatient (CLI) | payer OTHER, SELFPAY | END | disposition home or self-care (01) | PROVIDERS: PCP Internal Medicine; Referring Provider Physician Assistant Medical; Visit Provider Physician Assistant Medical | DX: I48.91 Unspecified atrial fibrillation (principal) | CPT/HCPCS: 93225; 93226 ==

== ENCOUNTER → 2024-07-22 | Outpatient (CLI) | payer OTHER, SELFPAY ==
[2024-07-22 11:12] LABS: Bacteria 0 SEEN /hpf (None Seen); Squamous Epithelial Cells - UA 0 SEEN /hpf (0-5)
[2024-07-22 11:52] LABS: Color, Urine Yellow (Yellow); Glucose, Dipstick Normal (Normal); Ketone-Dipstick Negative (Negative); Leukocyte Esterase-Dipstick 25 /ul (Negative); Nitrite-Dipstick Negative (Negative); Occult Blood-Urine 10 /ul (Negative); Protein-Dipstick 15 mg/dl (Negative); Specific Gravity, Urine 1.015 (1.002-1.030); Urine Bilirubin Dipstick Negative (Negative); Urine Clarity Clear (Clear); Urine Urobilinogen 1 mg/dl (Normal); Urine pH 6.5 (5.0 - 8.0)
[2024-07-22 11:59] LABS: Mucous, Urine 1+ /hpf (<or=2+); Red Blood Cells-Urine 0-5 SEEN /hpf (0-5); White Blood Cells 0-5 SEEN /hpf (0-5)
== END | disposition home or self-care (01) ==
LOC: LAB 11:07
PROVIDERS: PCP Internal Medicine; Referring Provider Physician Assistant Medical; Visit Provider Physician Assistant Medical
DX: R31.9 Hematuria, unspecified (principal)
CPT/HCPCS: 81001

== ENCOUNTER → 2024-07-23 | Outpatient (CLI) | payer OTHER, SELFPAY ==
[2024-07-23 10:18] LABS: Absolute Lymphocyte Count 0.63 X10^3/uL (0.83-4.51); Absolute Neutrophil Count 1.3 X10^3/uL (2.0-7.7); Basophil# 0.03 X10^3/uL; Basophil% 1.4 % (0-1); Eosinophils% 4.6 % (0-5); Hematocrit 40.8 % (40-54); Hemoglobin 13.5 g/dL (13.0-16.5); Lymphocyte # 0.63 X10^3/ul (0.83-4.51); Lymphocyte % 28.8 % (19-41); Mean Corp Hgb Conc 33.1 g/dL (32-36); Mean Corpuscular Hgb 30.7 pg (27.0-32.0); Mean Corpuscular Volume 92.7 fL (80-94); Mean Platelet Vol. 9.8 fl (6.2-12.0); Monocyte# 0.08 X10^3/uL; Monocyte% 3.7 % (0-10); NRBC Flagged by Analyzer 0 % (0-5); Neutrophil # 1.28 X10^3/uL (2.7-7.7); Neutrophil % 58.3 % (47-70); POSITIVE COUNT YES; Platelet Count 92 K/mm3 (150-450); RBC Distribution Width CV 16.4 % (11.6-14.6); RBC Distribution Width SD 54.4 fl (35.1-43.9); White Blood Count 2.2 K/mm3 (4.4-11.0)
[2024-07-23 11:02] LABS: Differential Indicated SCAN CRITERIA MET
[2024-07-23 11:32] LABS: Platelet Estimate SLT DEC (ADEQ)
== END | disposition home or self-care (01) ==
LOC: LAB 09:43
PROVIDERS: PCP Internal Medicine; Referring Provider Physician Assistant Medical; Visit Provider Physician Assistant Medical
DX: R31.9 Hematuria, unspecified (principal)
CPT/HCPCS: 36415; 85025

== ENCOUNTER → 2024-09-01 | Outpatient (CLI) | payer OTHER, SELFPAY ==
--- NOTE | 2024-09-01 14:50 | RAD_ITS ---
EXAM: XR Chest, 2 Views CLINICAL INDICATION: TECHNIQUE: Frontal and lateral views of the chest. COMPARISON: No relevant prior studies available. FINDINGS: LUNGS AND PLEURAL SPACES: Unremarkable. No consolidation. No pneumothorax. HEART: Unremarkable. No cardiomegaly. MEDIASTINUM: Unremarkable. Normal mediastinal contour. BONES/JOINTS: Unremarkable. No acute fracture. RAD/Chest PA and Lateral IMPRESSION: No acute cardiopulmonary process. Reading [facility]
== END | disposition home or self-care (01) ==
PROVIDERS: PCP Internal Medicine; Referring Provider Physician Assistant; Visit Provider Physician Assistant
DX: J06.9 Acute upper respiratory infection, unspecified (principal)
CPT/HCPCS: 71046; 87631

== ENCOUNTER 2024-09-06 18:25 | Inpatient (IN) | payer OTHER, SELFPAY ==
[2024-09-06] VITALS (14 sets, daily range): BP systolic 93–127; BP diastolic 57–91; PULSE 104–155; RESP 14–30; TEMP 36.9–37.7; O2SAT 93–100; BMI 29.4; BMI 29.7
[2024-09-06 19:19] LABS: Absolute Neutrophil Count 0.3 X10^3/uL (2.0-7.7); Basophil# 0.01 X10^3/uL; Eosinophil# 0.02 X10^3/uL; Hematocrit 25.9 % (40-54); Hemoglobin 8.8 g/dL (13.0-16.5); Lymphocyte # 0.37 X10^3/ul (0.83-4.51); Mean Corpuscular Volume 91.2 fL (80-94); Mean Platelet Vol. 10.5 fl (6.2-12.0); Monocyte# 0.01 X10^3/uL; NRBC Flagged by Analyzer 0 % (0-5); Neutrophil # 0.25 X10^3/uL (2.7-7.7); POSITIVE COUNT YES; POSITIVE DIFFERENTIAL YES; POSITIVE MORPHOLOGY YES; Platelet Count 102 K/mm3 (150-450); RBC Distribution Width CV 21.4 % (11.6-14.6); RBC Distribution Width SD 70.2 fl (35.1-43.9); Red Blood Count 2.84 M/mm3 (4.6-6.2); White Blood Count 0.8 K/mm3 (4.4-11.0)
[2024-09-06 19:26] LABS: Differential Indicated SCAN CRITERIA MET
[2024-09-06 19:34] LABS: Anion Gap 7 (5-15); BUN 35 mg/dL (7-18); BUN/Creat Ratio 26.9 RATIO (10-20); Calcium,Total 9.4 mg/dL (8.5-10.1); Chloride 101 mmol/L (98-107); EST Glomerular Filtration Rate 60 mL/min (>60); Est Glom Filt Rate - Afr Amer 72 mL/min (>60); Estimated Creatinine Clearance 72.51 ml/min; Glucose 144 mg/dL (74-106); Potassium 3.6 mmol/L (3.5-5.1); Sodium Level 137 mmol/L (136-145)
--- NOTE | 2024-09-06 19:48 | EDS_ITS ---
HPI History of Present Illness Chief Complaint: Shortness of Breath [facility] Medical History Health care maintenance Dilated aortic root Thrombocytopenia Non Hodgkin's lymphoma BPH (benign prostatic hyperplasia) Splenomegaly CLL (chronic lymphocytic leukemia) Thrombocytopenia due to drugs Neutropenia Leukopenia Neutropenic fever Pancytopenia Contact with and (suspected) exposure to other viral communicable diseases Tobacco abuse counseling Hypertension Anemia Chronic kidney disease (CKD) Pancytopenia Obesity Thrombocytopenia Paroxysmal supraventricular tachycardia (11/27/19) Near syncope (09/2019) Home Medications ?Medication ?Instructions ?Recorded ?Last Taken ?Type acetaminophen 500 mg tablet 500 mg PO Q6H PRN pain Unknown History (Tylenol Extra Strength) metoprolol tartrate 25 mg tablet 25 mg PO BID #60 tabs 07/21/24 Unknown Rx albuterol sulfate 90 mcg/actuation 2 puff inhalation Q 4-6H PRN 09/02/24 Unknown Rx aerosol inhaler shortness of breath or wheez ing #8.5 grams mometasone 100 mcg/actuation HFA 2 puff inhalation BID #13 grams 09/02/24 Unknown Rx aerosol inhaler Allergy/AdvReac Type Severity Reaction Status Date / Time ciprofloxacin (From Cipro) Allergy Intermediate Hives Verified 09/06/24 18:31 ibrutinib (From Imbruvica) Allergy dyspnea/diz Verified 09/06/24 18:31 zness rituximab Allergy Shortness Verified 09/06/24 18:31 of breath prochlorperazine (From AdvReac Unknown Dizziness Verified 09/06/24 18:31 Compazine) apixaban (From Eliquis) AdvReac Chest Verified 09/06/24 18:31 tightness Family History Father Diabetes Hypertension Surgical History History of tonsillectomy History of bone marrow biopsy Social History household members: spouse Smoking Status: Former smoker Tobacco: How many years used: 15 alcohol intake: never EXAM Physical Exam Const Vital Signs: 09/06/24 18:31 09/06/24 18:33 09/06/24 19:11 Temperature 99.3 F H 99.3 F H Temperature Source Oral Oral Pulse Rate 155 H 155 H Respiratory Rate 30 H 30 H Respiratory Effort Respiratory Depth Respiratory Pattern Blood Pressure 98/79 98/79 Blood Pressure Mean 85 85 Pulse Ox 99 99 93 Oxygen Delivery Method Room Air Room Air Room Air 09/06/24 19:11 09/06/24 19:28 09/06/24 19:33 Temperature 99.8 F H Temperature Source Oral Pulse Rate 148 H 148 H Respiratory Rate 18 14 16 Respiratory Effort Respiratory Depth Respiratory Pattern Blood Pressure 102/84 H 102/84 H Blood Pressure Mean 90 90 Pulse Ox 93 100 100 Oxygen Delivery Method Room Air Room Air Room Air 09/06/24 19:36 09/06/24 20:00 09/06/24 20:22 Temperature 99.8 F H Temperature Source Oral Pulse Rate 135 H Respiratory Rate 17 Respiratory Effort Short of Breath Respiratory Depth Deep Respiratory Pattern Normal Blood Pressure 113/74 Blood Pressure Mean 87 Pulse Ox 95 Oxygen Delivery Method Room Air Room Air Room Air 09/06/24 20:46 09/06/24 21:00 09/06/24 22:00 Temperature 99.1 F 99.1 F Temperature Source Oral Oral Pulse Rate 112 H 126 H 135 H Respiratory Rate 20 H 19 H Respiratory Effort Respiratory Depth Respiratory Pattern Blood Pressure 121/77 H 127/91 H 118/90 H Blood Pressure Mean 91 103 99 Pulse Ox 95 96 Oxygen Delivery Method Room Air Room Air 09/06/24 22:42 Temperature 98.7 F Temperature Source Pulse Rate 106 H Respiratory Rate 20 H Respiratory Effort Respiratory Depth Respiratory Pattern Blood Pressure 93/69 Blood Pressure Mean 77 Pulse Ox 95 Oxygen Delivery Method MDM MDM MDM Narrative Medical decision making narrative: HISTORY OF PRESENT ILLNESS: 59-year-old male here with concern for shortness of breath and abnormal labs. States he is history of leukemia. Notes he was diagnosed with RSV on . He further states he has been experiencing shortness of breath. Earlier today he tried to rise from see physician and felt faint and fell down to his knees. Denies any severe injury. Notes his heart is racing. Notes a fever. Notes he was diagnosed with RSV. Denies leg swelling. He is not currently undergoing chemotherapy. Denies any other VTE risk factors. REVIEW OF SYSTEMS: Pertinent positives: Shortness of breath Pertinent negatives: Chest pain PHYSICAL EXAM: Nursing triage notes reviewed, Vital signs reviewed Constitutional: please see mdm HENT: MMM Eyes: Pupils equal round and reactive to light, Extraocular muscles intact Neck: No stridor, no JVD, full . No increased work of breathing, no conver sational dyspnea, no accessory muscle use, no nasal flaring. No respiratory distress noted Respiratory: slight wheeze but no rales Heart: Fast regular rate, no murmurs, No rubs and No gallops, 2+ distal pulses (radial, femoral, posterior tibial) in all extremities Abdomen: Soft, there is no tenderness, rigidity, rebound or guarding, no obvious peritoneal signs, no palpable pulsatile abdominal masses, no auscultated abdominal bruit : No CVAT Extremities: No edema Neuro: No new focal neurological deficits, cranial nerves II through XII intact, 5/5 strength in all present extremities. Intact sensation to light touch in all present extremities, 2+ reflexes bilateral patella tendons. Skin: No rash or lesions noted MEDICAL DECISION MAKING: Chief Complaint: Shortness of breath External records reviewed: [] Factors affecting care: CLL, neutropenia, CKD, paroxysmal SVT Social determinants of health: none [] History obtained from others: none [] Consults: none [] [facility] Narrative: The patient was initially tachycardic with rate of 155, tachypneic rate of 30, borderline febrile the temperature nine 9.3. Saturating at 90% on room air. Blood pressure is also soft. I considered the following differential diagnosis: Arrhythmia, RSV bronchiolitis, neutropenic fever, pneumonia, PE I obtained a broad lab and imaging workup to further elucidate etiology of patient's complaints EKG CBC, BMP placed via triage secondary to poor department of conditions including high acuity, high volume Given patient's A-fib with RVR treated with following cc bolus and 20 mg IV diltiazem. Given borderline fever gave 6 and 50 mg of oral Tylenol Given concern for sepsis given elevated heart rate, elevated temperature and respiratory rate I obtained lactate and blood cultures via sepsis protocol ALL IMAGES (IF OBTAINED) HAVE BEEN PERSONALLY REVIEWED AND INTERPRETED BY MYSELF. EKG with A-fib with RVR, normal axis, no STEMI The patient and/or family, caregivers express understanding. The patient and/or family, caregivers agrees with the plan. Shared decision making: I will have a discussion with the patient and or visitors regarding risk/benefits of further testing or admission. They will be made aware of of the risk/benefits inherent in this decision they will be given the opportunity to voice understanding. Total critical care time today provided was at least 0 minutes. This excludes separately billable procedures. Critical care time (if documented) is secondary to the patient having high probability of clinically significant/life threatening deterioration in the patient's condition which required my urgent intervention. Impression: 1. A-fib with RVR 2. RSV bronchiolitis 3. Neutropenic fever Dispo: admit This note was generated with Yulex dictation software. It may contain incorrect words, spelling, and punctuation that were not noted in review of the chart prior to signing. Lab Data Labs: Laboratory Results - last 24 hr 09/06/24 09/06/24 09/06/24 19:10 19:10 19:10 WBC 0.8 L* RBC 2.84 L Hgb 8.8 L Hct 25.9 L MCV 91.2 MCH 31.0 MCHC 34.0 RDW Std Deviation 70.2 H RDW Coeff of Екатерина 21.4 H Plt Count 102 L MPV 10.5 Immature Gran % (Auto) DATA ACQUISITION TECHNICIAN Neut % (Auto) DATA ACQUISITION TECHNICIAN Lymph % (Auto) DATA ACQUISITION TECHNICIAN Campbell % (Auto) DATA ACQUISITION TECHNICIAN Eos % (Auto) DATA ACQUISITION TECHNICIAN Baso % (Auto) DATA ACQUISITION TECHNICIAN Absolute Neuts (auto) 0.3 L Absolute Lymphs (auto) 0.32 L Total Counted 25 Neutrophils % (Manual) 40 L Lymphocytes % (Manual) 40 Metamyelocytes % 20 H Nucleated RBC % 0 Diff Path Review May foll Atypical Lymphocytes 2+ Toxic Granulation 1+ Platelet Estimate ADEQUATE Plt Morphology Comment CLUMPED Polychromasia 1+ Hypochromasia 1+ Anisocytosis 2+ Schistocytes 1+ PT INR APTT Sodium 137 137 Potassium 3.6 3.6 Chloride 101 Carbon Dioxide Anion Gap BUN Creatinine Estim Creat Clear Calc Est GFR (MDRD) Af Amer Est GFR (MDRD) Non-Af BUN/Creatinine Ratio Glucose Lactic Acid Calcium Total Bilirubin AST ALT Alkaline Phosphatase Troponin I High Sens Total Protein Albumin Globulin Albumin/Globulin Ratio Urine Color Urine Clarity Urine pH Ur Specific [place] Urine Protein Urine Glucose (UA) Urine Ketones Urine Occult Blood Urine Nitrite Urine Bilirubin Urine Urobilinogen Ur Leukocyte Esterase Urine RBC Urine WBC Ur Squamous Epith Cells Urine Bacteria Hyaline Casts Urine Mucus 09/06/24 09/06/24 09/06/24 19:10 19:10 19:10 WBC RBC Hgb Hct MCV MCH MCHC RDW Std Deviation RDW Coeff of Екатерина Plt Count MPV Immature Gran % (Auto) Neut % (Auto) Lymph % (Auto) Campbell % (Auto) Eos % (Auto) Baso % (Auto) Absolute Neuts (auto) Absolute Lymphs (auto) Total Counted Neutrophils % (Manual) Lymphocytes % (Manual) Metamyelocytes % Nucleated RBC % Diff Path Review Atypical Lymphocytes Toxic Granulation Platelet Estimate Plt Morphology Comment Polychromasia Hypochromasia Anisocytosis Schistocytes PT INR APTT Sodium Potassium Chloride 101 Carbon Dioxide 29.0 27.0 Anion Gap 7 9 BUN 35 H Creatinine Estim Creat Clear Calc Est GFR (MDRD) Af Amer Est GFR (MDRD) Non-Af BUN/Creatinine Ratio Glucose Lactic Acid Calcium Total Bilirubin AST ALT Alkaline Phosphatase Troponin I High Sens Total Protein Albumin Globulin Albumin/Globulin Ratio Urine Color Urine Clarity Urine pH Ur Specific [place] Urine Protein Urine Glucose (UA) Urine Ketones Urine Occult Blood Urine Nitrite Urine Bilirubin Urine Urobilinogen Ur Leukocyte Esterase Urine RBC Urine WBC Ur Squamous Epith Cells Urine Bacteria Hyaline Casts Urine Mucus 09/06/24 09/06/24 09/06/24 19:10 19:10 19:10 WBC RBC Hgb Hct MCV MCH MCHC RDW Std Deviation RDW Coeff of Екатерина Plt Count MPV Immature Gran % (Auto) Neut % (Auto) Lymph % (Auto) Campbell % (Auto) Eos % (Auto) Baso % (Auto) Absolute Neuts (auto) Absolute Lymphs (auto) Total Counted Neutrophils % (Manual) Lymphocytes % (Manual) Metamyelocytes % Nucleated RBC % Diff Path Review Atypical Lymphocytes Toxic Granulation Platelet Estimate Plt Morphology Comment Polychromasia Hypochromasia Anisocytosis Schistocytes PT INR APTT Sodium Potassium Chloride Carbon Dioxide Anion Gap BUN 35 H Creatinine 1.30 1.27 Estim Creat Clear Calc 72.51 74.23 Est GFR (MDRD) Af Amer 72 Est GFR (MDRD) Non-Af BUN/Creatinine Ratio Glucose Lactic Acid Calcium Total Bilirubin AST ALT Alkaline Phosphatase Troponin I High Sens Total Protein Albumin Globulin Albumin/Globulin Ratio Urine Color Urine Clarity Urine pH Ur Specific [place] Urine Protein Urine Glucose (UA) Urine Ketones Urine Occult Blood Urine Nitrite Urine Bilirubin Urine Urobilinogen Ur Leukocyte Esterase Urine RBC Urine WBC Ur Squamous Epith Cells Urine Bacteria Hyaline Casts Urine Mucus 02/18/25 02/18/25 02/18/25 19:10 19:10 19:10 WBC RBC Hgb Hct MCV MCH MCHC RDW Std Deviation RDW Coeff of Екатерина Plt Count MPV Immature Gran % (Auto) Neut % (Auto) Lymph % (Auto) Campbell % (Auto) Eos % (Auto) Baso % (Auto) Absolute Neuts (auto) Absolute Lymphs (auto) Total Counted Neutrophils % (Manual) Lymphocytes % (Manual) Metamyelocytes % Nucleated RBC % Diff Path Review Atypical Lymphocytes Toxic Granulation Platelet Estimate Plt Morphology Comment Polychromasia Hypochromasia Anisocytosis Schistocytes PT INR APTT Sodium Potassium Chloride Carbon Dioxide Anion Gap BUN Creatinine Estim Creat Clear Calc Est GFR (MDRD) Af Amer 74 Est GFR (MDRD) Non-Af 60 61 BUN/Creatinine Ratio 26.9 H 27.6 H Glucose 144 H Lactic Acid Calcium Total Bilirubin AST ALT Alkaline Phosphatase Troponin I High Sens Total Protein Albumin Globulin Albumin/Globulin Ratio Urine Color Urine Clarity Urine pH Ur Specific [place] Urine Protein Urine Glucose (UA) Urine Ketones Urine Occult Blood Urine Nitrite Urine Bilirubin Urine Urobilinogen Ur Leukocyte Esterase Urine RBC Urine WBC Ur Squamous Epith Cells Urine Bacteria Hyaline Casts Urine Mucus 09/06/24 09/06/24 09/06/24 19:10 19:10 20:19 WBC RBC Hgb Hct MCV MCH MCHC RDW Std Deviation RDW Coeff of Екатерина Plt Count MPV Immature Gran % (Auto) Neut % (Auto) Lymph % (Auto) Campbell % (Auto) Eos % (Auto) Baso % (Auto) Absolute Neuts (auto) Absolute Lymphs (auto) Total Counted Neutrophils % (Manual) Lymphocytes % (Manual) Metamyelocytes % Nucleated RBC % Diff Path Review Atypical Lymphocytes Toxic Granulation Platelet Estimate Plt Morphology Comment Polychromasia Hypochromasia Anisocytosis Schistocytes PT 16.3 H INR 1.3 APTT 33.6 Sodium Potassium Chloride Carbon Dioxide Anion Gap BUN Creatinine Estim Creat Clear Calc Est GFR (MDRD) Af Amer Est GFR (MDRD) Non-Af BUN/Creatinine Ratio Glucose 140 H Lactic Acid 1.1 Calcium 9.4 9.1 Total Bilirubin 1.10 H AST 25 ALT 30 Alkaline Phosphatase 73 Troponin I High Sens 8 Total Protein 7.4 Albumin 3.2 Globulin 4.2 Albumin/Globulin Ratio 0.8 L Urine Color Urine Clarity Urine pH Ur Specific [place] Urine Protein Urine Glucose (UA) Urine Ketones Urine Occult Blood Urine Nitrite Urine Bilirubin Urine Urobilinogen Ur Leukocyte Esterase Urine RBC Urine WBC Ur Squamous Epith Cells Urine Bacteria Hyaline Casts Urine Mucus 09/06/24 21:35 WBC RBC Hgb Hct MCV MCH MCHC RDW Std Deviation RDW Coeff of Екатерина Plt Count MPV Immature Gran % (Auto) Neut % (Auto) Lymph % (Auto) Campbell % (Auto) Eos % (Auto) Baso % (Auto) Absolute Neuts (auto) Absolute Lymphs (auto) Total Counted Neutrophils % (Manual) Lymphocytes % (Manual) Metamyelocytes % Nucleated RBC % Diff Path Review Atypical Lymphocytes Toxic Granulation Platelet Estimate Plt Morphology Comment Polychromasia Hypochromasia Anisocytosis Schistocytes PT INR APTT Sodium Potassium Chloride Carbon Dioxide Anion Gap BUN Creatinine Estim Creat Clear Calc Est GFR (MDRD) Af Amer Est GFR (MDRD) Non-Af BUN/Creatinine Ratio Glucose Lactic Acid Calcium Total Bilirubin AST ALT Alkaline Phosphatase Troponin I High Sens Total Protein Albumin Globulin Albumin/Globulin Ratio Urine Color Yellow Urine Clarity Clear Urine pH 5.0 Ur Specific [place] 1.015 Urine Protein 30 H Urine Glucose (UA) Normal Urine Ketones 5 H Urine Occult Blood 10 H Urine Nitrite Negative Urine Bilirubin Negative Urine Urobilinogen 1 H Ur Leukocyte Esterase Negative Urine RBC 5-10 SEEN Urine WBC 0-5 SEEN Ur Squamous Epith Cells 0 SEEN Urine Bacteria 1+ Hyaline Casts 0-5 SEEN Urine Mucus 1+ Radiography Diagnostic Testing: Clinical Impression(s) from Imaging Studies Chest CTA 09/06/24 20:37 IMPRESSION: NEGATIVE FOR PULMONARY EMBOLISM. BRONCHIECTASIS AND TREE-IN-BUD OPACITIES PREDOMINANTLY IN THE MID AND LOWER LOBES MOST LIKELY INDICATING INFECTIOUS OR INFLAMMATORY PROCESS. GIVEN THE HISTORY OF LEUKEMIA, A NEOPLASTIC PROCESS IS NOT EXCLUDED. Reading Location: [id number] Discharge Plan Triage Chief Complaint: Shortness of Breath ED Provider: Juanjo Valencia Dx/Rx/DC Orders Primary Care Provider: Jaquelin Dexter
[2024-09-06 20:11] LABS: Atypical Lymphocyte 2+ %; Lymphocyte 40 % (19-41); Metamyelocyte 20 % (0-1); Neutrophil-Segmented 40 % (47-70); Platelet Morphology CLUMPED; Total Cells Counted 25 (MANUAL DIFF); Toxic Granulation 1+
[2024-09-06 20:13] LABS: Platelet Estimate ADEQUATE (ADEQ)
[2024-09-06 20:15] LABS: Anisocytosis 2+; Hypochromasia 1+; Polychromasia 1+; Schistocytes 1+
[2024-09-06 20:16] LABS: Scan Smear per Review Criteria MANUAL DIFF
[2024-09-06 20:19] LABS: Absolute Lymphocyte Count 0.32 X10^3/uL (0.83-4.51)
[2024-09-06] MEDS: 0.9% Normal Saline (500mL Bag) 500 ML 1000 ML IV (20:25)
[2024-09-06] MEDS: Acetaminophen 325 MG Tablet 650 MG PO (20:25)
[2024-09-06] MEDS: dilTIAZem 25 MG/5 ML Vial 20 MG IV BOLUS ×2 (20:26→22:37)
[2024-09-06 20:35] LABS: ALB/GLOB Ratio 0.8 RATIO (0.9-2.4); AST(SGOT) 25 U/L (15-37); Alanine Aminotransfer ALT/SGPT 30 U/L (16-61); Albumin, Serum 3.2 g/dL (3.2-5.0); Alkaline Phosphatase 73 U/L (45-117); Anion Gap 9 (5-15); BUN 35 mg/dL (7-18); BUN/Creat Ratio 27.6 RATIO (10-20); Calcium,Total 9.1 mg/dL (8.5-10.1); Chloride 101 mmol/L (98-107); Creatinine, Serum 1.27 mg/dL (0.70-1.30); EST Glomerular Filtration Rate 61 mL/min (>60); Est Glom Filt Rate - Afr Amer 74 mL/min (>60); Estimated Creatinine Clearance 74.23 ml/min; Globulin 4.2 g/dL (2.2-4.2); Glucose 140 mg/dL (74-106); Potassium 3.6 mmol/L (3.5-5.1); Protein, Total 7.4 g/dL (6.4-8.2); Sodium Level 137 mmol/L (136-145); Troponin-I HS (w/2H Reflex) 8 pg/mL (3.0-78.0)
--- NOTE | 2024-09-06 20:37 | CT_ITS ---
PROCEDURE: CTA CHEST W/WO CONTRAST REASON FOR EXAM: Dyspnea. TECHNIQUE: CTA imaging of the chest with intravenous contrast. 3D reconstructions. Dose reduction techniques include automated exposure control and/or adjustment of mA and/or kv according to patient size and or use of iterative reconstructive technique CONTRAST: 100 mL Isovue 370 intravenously. COMPARISON: 10/07/2023. FINDINGS: Hardware: None. Lymph nodes: The previously seen 1.6 cm left hilar node has resolved. Multiple shotty mediastinal nodes are seen. A 1.2 cm subcarinal node is unchanged from the previous exam. Heart: Normal heart size. No pericardial effusion. Coronary artery calcifications are noted Thoracic Aorta: No thoracic aortic aneurysm or dissection. Pulmonary Vessels: No evidence of acute pulmonary emboli through the major subsegmental branches. Lungs and Airways: Tree-in-bud opacities throughout the lungs, but more prominent in the mid and lower lungs, with mild bronchiectasis. Findings are new compared to the previous exam. Emphysema at the lung apices. Pleura: No pleural effusion. No pneumothorax. Upper Abdomen: Visualized portions of the upper abdominal viscera are unremarkable. Bones: Degenerative changes in the thoracic spine. CT/CTA Chest W/WO Contrast IMPRESSION: NEGATIVE FOR PULMONARY EMBOLISM. BRONCHIECTASIS AND TREE-IN-BUD OPACITIES PREDOMINANTLY IN THE MID AND LOWER LOB ES MOST LIKELY INDICATING INFECTIOUS OR INFLAMMATORY PROCESS. GIVEN THE HISTORY OF LEUKEMIA, A NEOPLASTIC PROCESS IS N OT EXCLUDED. Reading Location: [id number]
[2024-09-06 20:49] LABS: International Normalized Ratio 1.3; Prothrombin Time (Protime)PT. 16.3 SECONDS (11.7-14.9)
[2024-09-06 20:54] LABS: Partial Thromboplast Time 33.6 Seconds (24.1-36.2)
[2024-09-06 21:11] LABS: Lactic Acid 1.1 mmol/L (0.4-1.9)
[2024-09-06 21:42] LABS: Squamous Epithelial Cells - UA 0 SEEN /hpf (0-5)
[2024-09-06 21:49] LABS: Color, Urine Yellow (Yellow); Glucose, Dipstick Normal (Normal); Ketone-Dipstick 5 mg/dl (Negative); Leukocyte Esterase-Dipstick Negative /ul (Negative); Nitrite-Dipstick Negative (Negative); Occult Blood-Urine 10 /ul (Negative); Protein-Dipstick 30 mg/dl (Negative); Specific Gravity, Urine 1.015 (1.002-1.030); Urine Bilirubin Dipstick Negative (Negative); Urine Clarity Clear (Clear); Urine Urobilinogen 1 mg/dl (Normal)
[2024-09-06] MEDS: Piperacil/Tazobactam 4.5 GM in 0.9% Normal Saline (100mL MB+) 100 ML IV (21:50)
[2024-09-06 22:07] LABS: Bacteria 1+ /hpf (None Seen); Hyaline Cast 0-5 SEEN /lpf (0-5); Mucous, Urine 1+ /hpf (<or=2+); Red Blood Cells-Urine 5-10 SEEN /hpf (0-5); White Blood Cells 0-5 SEEN /hpf (0-5)
[2024-09-06 22:15] LABS: Reflex Troponin-HS? (from REC) Y
[2024-09-06] MEDS: Vancomycin HCl 2,000 MG in 0.9% Normal Saline (500mL Bag) 500 ML 250 MG IV (22:36)
--- NOTE | 2024-09-06 22:49 | HP.PCM.HOS_ITS ---
HPI - General General Date of Admission: 09/06/24 Date of Service: 09/06/24 Chief Complaint: Dyspnea. HPI Narrative The patient is a 59 y/o M w/ PMHx: Obesity, CLL w/ chronic pancytopenia, PAF unable to tolerate anticoagulant therapy including most recent NOAC trial secondary to worsening anemia/thrombocytopenia, CKD stage II per GFR trending who presents to the [facility] ED on 09/06/2024 with persistent dyspnea diagnosed recently previous with RSV with persistent worsening dyspnea more notable with any exertional attempts with increasing weakness and malaise noted to have been seeing his physician on day of presentation with lightheadedness and dizziness with no loss of consciousness but patient did fall to his knees with no injury at that time but at the time had noted that his heart has been racing and is not subsided prompting eventual ED evaluation to be cautious. He denies any recent ongoing chemotherapy. He notes that when his symptoms started he had onset of rhinorrhea, congestion, headache with neck discomfort, mild dry cough with mild dyspnea sensation in addition to general body aches and fatigue with subjective fever and chills however this was not severe but he reported that this worsened over the last 2 days. He has had a decreased appetite. Workup in the ED included T99.3, heart rate 155, BP 98/79, respiratory rate 30, 99% on room air with most recent repeat vitals T99.1 Orally, heart rate 135, BP 118/90, respiratory rate 19, 96% on room air, CBC with WBC 0.8, hemoglobin 8.8, MCV 91.2, platelet 102 with neutropenia and lymphopenia, coags with PT 16.3 otherwise not marked appearing, CMP with BUN/creatinine 35/1.27, GFR 61, glucose 140, lactic acid 1.1, hepatic profile with T. bili 1.10 otherwise unremarkable, troponin 8, BNP pending upon request evaluation of patient, urinalysis with specific gravity 1.015, protein 30, ketone 5, occult blood 10, nitrate negative, leukocyte esterase negative with urine RBCs 5-10 but no marked urine WBCs with 1+ urine bacteria, chest CTA with no evidence of any pulmonary embolism with bronchiectasis and tree-in-bud opacities predominantly in the mid and lower lobes most likely indicating infectious or inflammatory process although given history of leukemia neoplastic process cannot be excluded, EKG with atrial fibrillation with RVR with no acute evidence of ischemia, urine culture pending per ED, blood culture x 2 pending per ED. From review of records patient did have recent 09/01/2024 rapid SARS COVID/influenza/RSV PCR that had positive RSV at that time. In the ED patient administered IV Zosyn, vancomycin, diltiazem 20 mg IV x 2 in addition to Tylenol 650 mg p.o. x 1. [facility] Medical History Health care maintenance Dilated aortic root Thrombocytopenia Non Hodgkin's lymphoma BPH (benign prostatic hyperplasia) Splenomegaly CLL (chronic lymphocytic leukemia) Thrombocytopenia due to drugs Neutropenia Leukopenia Neutropenic fever Pancytopenia Contact with and (suspected) exposure to other viral communicable diseases Tobacco abuse counseling Hypertension Anemia Chronic kidney disease (CKD) Pancytopenia Obesity Thrombocytopenia Paroxysmal supraventricular tachycardia (11/27/19) Near syncope (09/2019) Home Medications ?Medication ?Instructions ?Recorded ?Last Taken ?Type acetaminophen 500 mg tablet 500 mg PO Q6H PRN pain 09/06/24 History (Tylenol Extra Strength) metoprolol tartrate 25 mg tablet 25 mg PO BID #60 tabs 07/21/24 09/06/24 Rx albuterol sulfate 90 mcg/actuation 2 puff inhalation Q 4-6H PRN 09/02/24 09/06/24 Rx aerosol inhaler shortness of breath or wheez ing #8.5 grams mometasone 100 mcg/actuation HFA 2 puff inhalation BID #13 grams 09/02/24 09/06/24 Rx aerosol inhaler Allergy/AdvReac Type Severity Reaction Status Date / Time ciprofloxacin (From Cipro) Allergy Intermediate Hives Verified 09/07/24 00:02 ibrutinib (From Imbruvica) Allergy dyspnea/diz Verified 09/07/24 00:02 zness rituximab Allergy Shortness Verified 09/07/24 00:02 of breath prochlorperazine (From AdvReac Unknown Dizziness Verified 09/07/24 00:02 Compazine) apixaban (From Eliquis) AdvReac Chest Verified 09/07/24 00:02 tightness Family History Father Diabetes Hypertension Mother Dementia Surgical History History of tonsillectomy History of bone marrow biopsy Social History household members: spouse Smoking Status: Former smoker Tobacco: How many years used: 15 alcohol intake: never ROS ROS Narrative Admission Review of Systems: CONSTITUTIONAL: No weight loss, + fever, chills, weakness or fatigue. HEENT: + Congestion, rhinorrhea, headache, dizziness/lightheadedness. Eyes: No visual loss, blurred vision, double vision or yellow sclerae. Ears, Nose, Throat: No hearing loss, sore throat. SKIN: No rash or itching, lesions, wounds. CARDIOVASCULAR: + Dizziness/lightheadedness. No chest pain, chest pressure or chest discomfort, palpitations, edema, orthopnea, syncopal events. RESPIRATORY: + Dyspnea, cough not markedly productive. No wheezing, hemoptysis. GASTROINTESTINAL: + Decreased appetite. No nausea, vomiting or diarrhea, abdominal pain, melena, BRBPR. GENITOURINARY: No dysuria, frequency, urgency or retention. NEUROLOGICAL: + Headache, dizziness/lightheadedness. No syncope, paralysis, ataxia, numbness or tingling in the extremities, focal weakness, change in bowel or bladder control, seizure. MUSCULOSKELETAL: + muscle, back pain, joint pain or stiffness. HEMATOLOGIC: + Chronic anemia/easy bleeding/bruising. LYMPHATICS: No enlarged nodes. No history of splenectomy. PSYCHIATRIC: No history of depression or anxiety. ENDOCRINOLOGIC: + reports of sweating, cold or heat intolerance. No polyuria or polydipsia. ALLERGIES: + History of hives. Vital Signs Vital Signs Vital Signs: 09/06/24 18:31 09/06/24 18:33 09/06/24 19:11 Temperature 99.3 F H 99.3 F H Temperature Source Oral Oral Pulse Rate 155 H 155 H Respiratory Rate 30 H 30 H Respiratory Effort Respiratory Depth Respiratory Pattern Blood Pressure 98/79 98/79 Blood Pressure Mean 85 85 Pulse Ox 99 99 93 Oxygen Delivery Method Room Air Room Air Room Air 09/06/24 19:11 09/06/24 19:28 09/06/24 19:33 Temperature 99.8 F H Temperature Source Oral Pulse Rate 148 H 148 H Respiratory Rate 18 14 16 Respiratory Effort Respiratory Depth Respiratory Pattern Blood Pressure 102/84 H 102/84 H Blood Pressure Mean 90 90 Pulse Ox 93 100 100 Oxygen Delivery Method Room Air Room Air Room Air 09/06/24 19:36 09/06/24 20:00 09/06/24 20:22 Temperature 99.8 F H Temperature Source Oral Pulse Rate 135 H Respiratory Rate 17 Respiratory Effort Short of Breath Respiratory Depth Deep Respiratory Pattern Normal Blood Pressure 113/74 Blood Pressure Mean 87 Pulse Ox 95 Oxygen Delivery Method Room Air Room Air Room Air 09/06/24 20:46 09/06/24 21:00 09/06/24 22:00 Temperature 99.1 F 99.1 F Temperature Source Oral Oral Pulse Rate 112 H 126 H 135 H Respiratory Rate 20 H 19 H Respiratory Effort Respiratory Depth Respiratory Pattern Blood Pressure 121/77 H 127/91 H 118/90 H Blood Pressure Mean 91 103 99 Pulse Ox 95 96 Oxygen Delivery Method Room Air Room Air 09/06/24 22:42 Temperature 98.7 F Temperature Source Pulse Rate 106 H Respiratory Rate 20 H Respiratory Effort Respiratory Depth Respiratory Pattern Blood Pressure 93/69 Blood Pressure Mean 77 Pulse Ox 95 Oxygen Delivery Method Weight Weight: 216 lb 14.4 oz Body Mass Index (BMI) 29.4 Physical Exam Narrative Physical Examination: General: Awake, alert, oriented x 3 and cooperative, seated upright in bed in no apparent distress, fatigued appearing. Skin: Normal color, normal turgor, no icterus, no cyanosis except occasional stage ecchymoses, abrasion, bilateral lower extremity venous stasis skin changes. HEENT: AT/NC, EOMI, PERRLA, dry MM, no carotid bruits or JVD noted. Lungs: Diminished, greater bases, occasional end expiratory wheeze, mildly increased respiratory rate but no distress, no rales or rhonchi. Heart: Irregular irregular; no gallop, rub audible. Abdomen: Soft, obese, NTTP, ND, distant normal BS, + HSM. Extremities: No cyanosis, clubbing, or edema, see skin. Neurological: Patient awake, alert, oriented as noted, cognitive function intact; pupils equally reactive to light and accommodation, cranial nerves grossly normal, moving all 4 extremities, no focal deficits, strength moderately globally decreased secondary to acute presentation. Psychiatric: Affect appears flat, fatigued, ill-appearing, no acute evidence of depressive or anxiety feelings. Results Lab / Micro Data 09/06/24 19:10 09/06/24 19:10 Labs: Laboratory Results - last 24 hr 09/06/24 19:10: WBC 0.8 L*, RBC 2.84 L, Hgb 8.8 L, Hct 25.9 L, MCV 91.2, MCH 31.0, MCHC 34.0, RDW Std Deviation 70.2 H, RDW Coeff of Екатерина 21.4 H, Plt Count 102 L, MPV 10.5, Immature Gran % (Auto) FACILITY MAINTENANCE SUPERVISOR, Neut % (Auto) FACILITY MAINTENANCE SUPERVISOR, Lymph % (Auto) FACILITY MAINTENANCE SUPERVISOR, [place] % (Auto) FACILITY MAINTENANCE SUPERVISOR, Eos % (Auto) FACILITY MAINTENANCE SUPERVISOR, Baso % (Auto) FACILITY MAINTENANCE SUPERVISOR, Absolute Neuts (auto) 0.3 L , Absolute Lymphs (auto) 0.32 L, Total Counted 25, Neutrophils % (Manual) 40 L, Lymphocytes % (Manual) 40, Metamyelocytes % 20 H, Nucleated RBC % 0, Diff Path Review May foll, Atypical Lymphocytes 2+, Toxic Granulation 1+, Platelet Estimate ADEQUATE, Plt Morphology Comment CLUMPED, Polychromasia 1+, Hypochromasia 1+, Anisocytosis 2+, Schistocytes 1+, Sodium 137 09/06/24 19:10: Sodium 137, Potassium 3.6 09/06/24 19:10: Potassium 3.6, Chloride 101 09/06/24 19:10: Chloride 101, Carbon Dioxide 29.0 09/06/24 19:10: Carbon Dioxide 27.0, Anion Gap 7 09/06/24 19:10: Anion Gap 9, BUN 35 H 09/06/24 19:10: BUN 35 H, Creatinine 1.30 09/06/24 19:10: Creatinine 1.27, Estim Creat Clear Calc 72.51 09/06/24 19:10: Estim Creat Clear Calc 74.23, Est GFR (MDRD) Af Amer 72 09/06/24 19:10: Est GFR (MDRD) Af Amer 74, Est GFR (MDRD) Non-Af 60 09/06/24 19:10: Est GFR (MDRD) Non-Af 61, BUN/Creatinine Ratio 26.9 H 09/06/24 19:10: BUN/Creatinine Ratio 27.6 H, Glucose 144 H 09/06/24 19:10: Glucose 140 H, Calcium 9.4 09/06/24 19:10: Calcium 9.1, Total Bilirubin 1.10 H, AST 25, ALT 30, Alkaline Phosphatase 73, Troponin I High Sens 8, Total Protein 7.4, Albumin 3.2, Globulin 4.2, Albumin/Globulin Ratio 0.8 L 09/06/24 20:19: PT 16.3 H, INR 1.3, APTT 33.6, Lactic Acid 1.1 09/06/24 21:35: Urine Color Yellow, Urine Clarity Clear, Urine pH 5.0, Ur Specific [place] 1.015, Urine Protein 30 H, Urine Glucose (UA) Normal, Urine Ketones 5 H, Urine Occult Blood 10 H, Urine Nitrite Negative, Urine Bilirubin Negative, Urine Urobilinogen 1 H, Ur Leukocyte Esterase Negative, Urine RBC 5-10 SEEN, Urine WBC 0-5 SEEN, Ur Squamous Epith Cells 0 SEEN, Urine Bacteria 1+, Hyaline Casts 0-5 SEEN, Urine Mucus 1+ Imaging Radiology Impression Chest CTA 09/06/24 20:37 IMPRESSION: NEGATIVE FOR PULMONARY EMBOLISM. BRONCHIECTASIS AND TREE-IN-BUD OPACITIES PREDOMINANTLY IN THE MID AND LOWER LOBES MOST LIKELY INDICATING INFECTIOUS OR INFLAMMATORY PROCESS. GIVEN THE HISTORY OF LEUKEMIA, A NEOPLASTIC PROCESS IS NOT EXCLUDED. Reading Location: [id number] Assessment & Plan Assessment/Plan (1) Atrial fibrillation with RVR: PLAN: Plan The patient is a 59 y/o M w/ PMHx: Obesity, CLL w/ chronic pancytopenia, PAF unable to tolerate anticoagulant therapy including most recent NOAC trial secondary to worsening anemia/thrombocytopenia, CKD stage II per GFR trending who presents to the [facility] ED on 09/06/2024 with persistent dyspnea diagnosed recently previous with RSV with persistent worsening dyspnea more notable with any exertional attempts with increasing weakness and malaise noted to have been seeing his physician on day of presentation with lightheadedness and dizziness with no loss of consciousness but patient did fall to his knees with no injury at that time but at the time had noted that his heart has been racing and is not subsided prompting eventual ED evaluation to be cautious. #1. Paroxsymal atrial fibrillation w/ RVR: EKG in ED w/ atrial fibrillation w/ RVR. Patient administered Cardizem 20 mg IV x 2 boluses in ED with transient rate improvement. Will admit to PCU, maintain on telemetry, obtain cardiac enzyme serial set, obtain magnesium level, obtain TSH level. Patient has failed anticoagulant attempts including with Coumadin and also previously most recently with NOAC secondary to worsening anemia/thrombocytopenia. Patient denies having previously tried aspirin but given his counts is hesitant. Will dose with patient home metoprolol now and if necessary may need to consider Cardizem drip if not improving. Most recent echocardiogram noted 09/21/2023 with mild concentric LVH, EF 65%, stage II diastolic dysfunction, mildly enlarged LA, mild TVI, RVSP 47 mmHg with mildly dilated aortic root thus will request repeat. Patient with most recent evaluation with cardiology in [place] Dr. Brice Lopez referred by [facility], noted possibility that the patient is a candidate for short-term anticoagulant which they tried and failed he could at that time consider antiarrhythmic medications with flecainide 100 mg p.o. twice daily followed by electrical cardioversion. Asp Web Developer noted that he would not qualify for the Watchman given his chads 2 score. #2. Acute RSV bronchiolitis with questionable possible superimposed bilateral bacterial pneumonia, immunosuppressed status with possibility of gram- negative/gram positive organisms: Chest CTPA with no evidence of PE, bronchiectasis and tree-in-bud opacities predominantly in the mid and lower lobes. Currently patient is on room air however if necessary will supplement with oxygen, will maintain on ATC budesonide therapy, PRN albuterol, maintain BSA with IV Zosyn and Vancomycin given neutropenic presentation however de- escalate therapy if able as certainly could be primarily RSV bronchiolitis only, HOB, IS parameters w/ pending sputum cultures, full respiratory viral panel, procalcitonin and urine antigens. Bld cx x 2 obtained in the ED. #3. Chronic lymphocytic leukemia, non-Hodgkin's lymphoma: Patient with initial diagnosis 2017 with significant left cytosis, anemia, thrombocytopenia and massive splenomegaly at that time with bone marrow demonstrating atypical CLL treated with chemoimmunotherapy FCR concluding in 2018 with a total of 6 cycles planned however had to be discontinued after 4 cycles secondary severe transfusion reaction with hives, placed on watchful expectancy and reportedly per most recent oncology note 08/25/2024 had been doing well until repeat peripheral blood flow cytometry confirmed persistent B-cell lymphoproliferative disorder with partial expression of CD5 and diagnosis of marginal zone lymphoma was considered versus atypical CLL, following this patient had recurrent drops in hemoglobin and platelets then consider relapse of his indolent CLL versus marginal cell lymphoma treated with Gazyva which was poorly tolerated requiring hospitalization twice for febrile neutropenia as well as a left lower extremity infection requiring I&D. Current plan of care from discussion with patient and review of note is follow-up in 1 month and if CBC continues to be notable then would plan a repeat bone marrow biopsy. #4. Hypertension: Continue home regimen including metoprolol, PRN hydralazine. #5. Chronic Kidney Disease Stage II per GFR trending: Admission BUN/Cr 35/1.27, GFR 61, baseline renal function 0.7-1.3, repeat BMP in AM. #6. Former tobacco use: Encourage continued tobacco cessation. #7. Obesity: Weight loss and lifestyle changes encouraged. #8. DVT prophylaxis: SCDs, will defer chemoprophylaxis given patient's significant history of severe anemia/thrombocytopenia with any anticoagulation attempts. #9. CODE status: Patient KARINA is his and living will is currently in place. Discussed CODE status at length including difference between FULL code, DNR-CCA and DNR-CC status. Following discussions about the differences in these status, requested Full Code but very specifically noted that he would never want to continue long-term interventions like prolonged ventilatory support. Advanced Care Planning Face to Face Time: 16 minutes. Charges/Coding Visit Charges Inpatient E&M: 23073 Init Hosp L3 Procedures Hospitalists Procedures: 23261 Advncd Care Plan 30 Min
--- NOTE | 2024-09-06 23:46 | ECHOD_ITS ---
Reason For Study Reason For Study: ATRIAL FIB-FLUTTER Procedure This was a 2D Doppler, Color Flow transthoracic echocardiogram. Exam performed portable in patient room. Left Ventricle Normal LV size. Mild concentric left ventricular hypertrophy. The left ventricular ejection fraction is 60 %. Stage 1 diastolic dysfunction. Right Ventricle Normal right ventricle. Atria There is mild biatrial dilatation. Mitral Valve Trivial mitral valve insufficiency. Tricuspid Valve Trivial tricuspid valve insufficiency. Right ventricular systolic pressure estimated to be 44 mmHg. Aortic Valve Trisinus/trileaflet aortic valve. Pulmonic Valve The pulmonic valve is not well visualized. Great Vessels Mildly dilated aortic root. Pericardium/Pleural No pericardial effusion. MMode/2D Measurements & Calculations LVIDd: 4.8 cm IVSd: 1.5 cm Ao root diam: 3.9 cm LVIDs: 3.3 cm LVPWd: 1.2 cm LA dimension: 4.3 cm RVDd: 3.5 cm FS: 31.4 % LAV(MOD-bp): 77.0 ml LVAd ap4: 29.3 cm2 SV(MOD-sp4): 49.7 ml LAV(MOD-bp) Indexed: 34.9 ml/m2 LVLd ap4: 8.4 cm SI(MOD-sp4): 22.5 ml/m2 LAV(MOD-sp2): 77.2 ml EDV(MOD-sp4): 84.5 ml LAV(MOD-sp4): 72.0 ml EDV(sp4-el): 87.2 ml LVAs ap4: 17.5 cm2 LVLs ap4: 7.8 cm ESV(MOD-sp4): 34.9 ml ESV(sp4-el): 33.5 ml EF(MOD-sp4): 58.8 % EF(sp4-el): 61.6 % SV(sp4-el): 53.8 ml LA A4 area: 24.9 cm2 LA dimension(2D): 3.8 cm RA A4 area: 19.3 cm2 TAPSE: 2.4 cm Doppler Measurements & Calculations MV E max tracy: 103.5 cm/sec Ao V2 max: 123.3 cm/sec LV V1 max: 106.8 cm/sec Ao max P.2 mmHg LV V1 max P.6 mmHg PA V2 max: 95.5 cm/sec TR max tracy: 268.1 cm/sec TR max P.8 mmHg ECHO/Echo Complete Interpretation Summary Mild concentric left ventricular hypertrophy. The left ventricular ejection fraction is 60 %. Stage 1 diastolic dysfunction. There is mild biatrial dilatation. Right ventricular systolic pressure estimated to be 44 mmHg. Mildly dilated aortic root. Ordering Physician: Arely López Referring Physician: JORGE ALVARADO Performed By: Celeste Gibbons RDCS
[2024-09-07] VITALS (46 sets, daily range): BP systolic 90–129; BP diastolic 41–89; PULSE 84–148; RESP 17–30; TEMP 36.6–37; O2SAT 87–99; BMI 29.7
[2024-09-07] MEDS: Metoprolol Tartrate 25 MG Tablet PO ×3 (00:22→23:12)
[2024-09-07 00:28] LABS: Magnesium 2.1 mg/dL (1.6-2.6); Phosphorus 3.7 mg/dL (2.5-4.9); Troponin-I HS 7 pg/mL (3.0-78.0)
--- NOTE | 2024-09-07 00:32 | PCM.RX.CS ---
Consult Antibiotic Management Pharmacy has been consulted to manage selected antibiotic: Vancomycin Type of Intervention Type of Consult: New start Suspected Infection Suspected Infection: Pneumonia Labs Labs: Sodium 137 mmol/L (136-145) 09/06/24 19:10 Sodium 137 mmol/L (136-145) 09/06/24 19:10 Potassium 3.6 mmol/L (3.5-5.1) 09/06/24 19:10 Potassium 3.6 mmol/L (3.5-5.1) 09/06/24 19:10 Chloride 101 mmol/L (98-107) 09/06/24 19:10 Chloride 101 mmol/L (98-107) 09/06/24 19:10 Carbon Dioxide 27.0 mmol/L (21.0-32.0) 09/06/24 19:10 Carbon Dioxide 29.0 mmol/L (21.0-32.0) 09/06/24 19:10 Anion Gap 7 (5-15) 09/06/24 19:10 Anion Gap 9 (5-15) 09/06/24 19:10 BUN 35 mg/dL (7-18) H 09/06/24 19:10 BUN 35 mg/dL (7-18) H 09/06/24 19:10 Creatinine 1.27 mg/dL (0.70-1.30) 09/06/24 19:10 Creatinine 1.30 mg/dL (0.70-1.30) 09/06/24 19:10 Est GFR (MDRD) Af Amer 72 mL/min (>60) 09/06/24 19:10 Est GFR (MDRD) Af Amer 74 mL/min (>60) 09/06/24 19:10 Est GFR (MDRD) Non-Af 60 mL/min (>60) 09/06/24 19:10 Est GFR (MDRD) Non-Af 61 mL/min (>60) 09/06/24 19:10 BUN/Creatinine Ratio 26.9 RATIO (10-20) H 09/06/24 19:10 BUN/Creatinine Ratio 27.6 RATIO (10-20) H 09/06/24 19:10 Glucose 140 mg/dL (74-106) H 09/06/24 19:10 Glucose 144 mg/dL (74-106) H 09/06/24 19:10 Dosing Weight Weight used for dosin.7 kg Estimated Creatinine Clearance Estimated Creatinine Clearance: 74 Goal Trough Goal Trough: 15-20 mcg/mL Pharmacy Plan for Drug Dosing Pharmacy Plan for Drug Dosing: Pharmacy Service will continue to monitor and adjust dosing as required. Follow-Up Labs Follow-Up Labs: Trough: Vancomycin Date/Time Labs Ordered Labs to be done on [date and time ordered]: 09/08/24 @1000
[2024-09-07] MEDS: 0.9% Normal Saline (1000mL) 1,000 ML 100 ML IV (00:58)
[2024-09-07 01:35] LABS: Procalcitonin 0.27 ng/mL (0.00-0.09)
[2024-09-07 02:26] LABS: Troponin-I HS 11 pg/mL (3.0-78.0)
[2024-09-07] MEDS: guaiFENesin 10 ML UDC (200MG/10ML) 20 ML PO (04:12)
[2024-09-07] MEDS: Budesonide Respules 0.5 MG/2 ML AMPUL.NEB. INHALATION ×2 (04:40→19:50)
[2024-09-07] MEDS: Albuterol 2.5 MG/3 ML VIAL.NEB. INHALATION (04:42)
[2024-09-07] MEDS: Piperacil/Tazobactam 3.375 GM in 0.9% Normal Saline (50mL MB+) 50 ML IV ×3 (06:11→21:57)
[2024-09-07 06:21] LABS: Hematocrit 19.9 % (40-54); Hemoglobin 6.7 g/dL (13.0-16.5); Mean Corp Hgb Conc 33.7 g/dL (32-36); Mean Corpuscular Hgb 30.9 pg (27.0-32.0); Mean Corpuscular Volume 91.7 fL (80-94); Mean Platelet Vol. 9.8 fl (6.2-12.0); POSITIVE COUNT YES; POSITIVE DIFFERENTIAL YES; POSITIVE MORPHOLOGY YES; Platelet Count 72 K/mm3 (150-450); RBC Distribution Width CV 21.6 % (11.6-14.6); RBC Distribution Width SD 72.7 fl (35.1-43.9); Red Blood Count 2.17 M/mm3 (4.6-6.2)
[2024-09-07 06:55] LABS: ALB/GLOB Ratio 0.8 RATIO (0.9-2.4); AST(SGOT) 32 U/L (15-37); Alanine Aminotransfer ALT/SGPT 31 U/L (16-61); Albumin, Serum 2.7 g/dL (3.2-5.0); Alkaline Phosphatase 74 U/L (45-117); Anion Gap 10 (5-15); BUN 28 mg/dL (7-18); BUN/Creat Ratio 33.9 RATIO (10-20); Calcium,Total 8.3 mg/dL (8.5-10.1); Chloride 106 mmol/L (98-107); Creatinine, Serum 0.83 mg/dL (0.70-1.30); EST Glomerular Filtration Rate 101 mL/min (>60); Est Glom Filt Rate - Afr Amer 122 mL/min (>60); Estimated Creatinine Clearance 114.27 ml/min; Globulin 3.4 g/dL (2.2-4.2); Glucose 114 mg/dL (74-106); Potassium 3.5 mmol/L (3.5-5.1); Protein, Total 6.1 g/dL (6.4-8.2); Sodium Level 139 mmol/L (136-145); Troponin-I HS 10 pg/mL (3.0-78.0)
[2024-09-07 06:58] LABS: Differential Indicated MANUAL DIFF; White Blood Count 0.5 K/mm3 (4.4-11.0)
[2024-09-07 09:15] LABS: Anisocytosis 1+; Hypochromasia 1+; Platelet Estimate SLT DEC (ADEQ)
[2024-09-07 09:18] LABS: Eosinophil 10 % (0-5); Lymphocyte 40 % (19-41); Monocyte 20 % (0-10); Neutrophil-Segmented 30 % (47-70); Total Cells Counted 10 (MANUAL DIFF)
[2024-09-07 09:20] LABS: Absolute Neutrophil Count 0.2 X10^3/uL (2.0-7.7)
[2024-09-07] MEDS: Diltiazem 125 MG in Dextrose 5%-Water (100mL Bag) 100 ML IV (10:25)
--- NOTE | 2024-09-07 11:05 | CASEMGMT ---
RN CM Face to Face with patient for initial transition planning/care coordination assessment. RN CM introduced self and role at [facility]. Patient lying in bed, alert and oriented. Patient willing to participate in assessment and is able to answer all questions appropriately. Care providers, pharmacy, and demographics verified. Strata: 2 PCP: [facility] Specialists: JUAN FRANCISCO, Durable Medical Equipment Technician; Breanna, oncologist Preferred Pharmacy: [facility] Insurance: U[employer] Prescription Benefit: yes Living Will/HPOA: yes, Aretha Hastings LNOK: Living Arrangements: Patient lives with in a single story home with 3 steps and railing to enter the home. Patient is independent at home. Transportation: self, DME/HHC: Patient denies DME in the home. No previous HHC or SNF. Patient wishes to discharge home, denies need for home health at this time. Patient states he has no further needs or concerns at this time. CM to follow for discharge planning needs that may arise. Disposition Plan: Patient to discharge home with family support and follow-up plans in place. Jeanne COBB, RN, CM
[2024-09-07] MEDS: Vancomycin HCl 1,750 MG in 0.9% Normal Saline (500mL Bag) 500 ML 250 MG IV ×2 (11:24→21:57)
--- NOTE | 2024-09-07 13:39 | PN_ITS ---
Subjective Subjective Patient seen and examined. He had no active complaints. He has been tachycardic. HR was fluctuating in the 120s-150s. He denied any palpitations, dizziness, nausea, vomiting or any other symptoms. He is in afib with RVR. Objective Data Objective Data Vital Signs: Vital Signs Temp Pulse Resp BP Pulse Ox O2 Del Method 98.6 F 134 H 26 H 109/76 95 Room Air 09/07/24 13:25 09/07/24 13:25 09/07/24 13:25 09/07/24 13:09/07/24 13:09/07/24 13:25 Oxygen Delivery Method Room Air Weight: 219 lb 12.814 oz Body Mass Index (BMI) 29.7 Intake & Output: Intake and Output for Last 24 Hours 09/05/24 09/06/24 09/07/24 23:59 23:59 23:59 Intake Total 600 / 600 1847.92 / 1847.92 Output Total 750 / 750 Balance 600 / 600 1097.92 / 1097.92 Lab / Micro Data 09/07/24 05:50 09/07/24 05:50 Labs: Laboratory Results - last 24 hr 09/06/24 19:10: WBC 0.8 L*, RBC 2.84 L, Hgb 8.8 L, Hct 25.9 L, MCV 91.2, MCH 31.0, MCHC 34.0, RDW Std Deviation 70.2 H, RDW Coeff of Екатерина 21.4 H, Plt Count 102 L, MPV 10.5, Immature Gran % (Auto) BUFFER MACHINE, Neut % (Auto) BUFFER MACHINE, Lymph % (Auto) BUFFER MACHINE, [place] % (Auto) BUFFER MACHINE, Eos % (Auto) BUFFER MACHINE, Baso % (Auto) BUFFER MACHINE, Absolute Neuts (auto) 0.3 L , Absolute Lymphs (auto) 0.32 L, Total Counted 25, Neutrophils % (Manual) 40 L, Lymphocytes % (Manual) 40, Metamyelocytes % 20 H, Nucleated RBC % 0, Diff Path Review May foll, Atypical Lymphocytes 2+, Toxic Granulation 1+, Platelet Estimate ADEQUATE, Plt Morphology Comment CLUMPED, Polychromasia 1+, Hypochromasia 1+, Anisocytosis 2+, Schistocytes 1+, Sodium 137 09/06/24 19:10: Sodium 137, Potassium 3.6 09/06/24 19:10: Potassium 3.6, Chloride 101 09/06/24 19:10: Chloride 101, Carbon Dioxide 29.0 09/06/24 19:10: Carbon Dioxide 27.0, Anion Gap 7 09/06/24 19:10: Anion Gap 9, BUN 35 H 09/06/24 19:10: BUN 35 H, Creatinine 1.30 09/06/24 19:10: Creatinine 1.27, Estim Creat Clear Calc 72.51 09/06/24 19:10: Estim Creat Clear Calc 74.23, Est GFR (MDRD) Af Amer 72 09/06/24 19:10: Est GFR (MDRD) Af Amer 74, Est GFR (MDRD) Non-Af 60 09/06/24 19:10: Est GFR (MDRD) Non-Af 61, BUN/Creatinine Ratio 26.9 H 09/06/24 19:10: BUN/Creatinine Ratio 27.6 H, Glucose 144 H 09/06/24 19:10: Glucose 140 H, Calcium 9.4 09/06/24 19:10: Calcium 9.1, Total Bilirubin 1.10 H, AST 25, ALT 30, Alkaline Phosphatase 73, Troponin I High Sens 8, Total Protein 7.4, Albumin 3.2, Globulin 4.2, Albumin/Globulin Ratio 0.8 L 09/06/24 20:19: PT 16.3 H, INR 1.3, APTT 33.6, Lactic Acid 1.1 09/06/24 21:35: Urine Color Yellow, Urine Clarity Clear, Urine pH 5.0, Ur Specific [place] 1.015, Urine Protein 30 H, Urine Glucose (UA) Normal, Urine Ketones 5 H, Urine Occult Blood 10 H, Urine Nitrite Negative, Urine Bilirubin Negative, Urine Urobilinogen 1 H, Ur Leukocyte Esterase Negative, Urine RBC 5-10 SEEN, Urine WBC 0-5 SEEN, Ur Squamous Epith Cells 0 SEEN, Urine Bacteria 1+, Hyaline Casts 0-5 SEEN, Urine Mucus 1+ 09/06/24 23:50: Phosphorus 3.7, Magnesium 2.1, Troponin I High Sens 7, P rocalcitonin 0.27 H 09/07/24 01:55: Troponin I High Sens 11 09/07/24 05:50: WBC 0.5 L*, RBC 2.17 L, Hgb 6.7 L, Hct 19.9 L, MCV 91.7, MCH 30.9, MCHC 33.7, RDW Std Deviation 72.7 H, RDW Coeff of Екатерина 21.6 H, Plt Count 72 L, MPV 9.8, Neut % (Auto) Not Reportable, Absolute Neuts (auto) 0.2 L, Absolute Lymphs (auto) 0.20 L, Total Counted 10, Neutrophils % (Manual) 30 L, Lymphocytes % (Manual) 40, Monocytes % (Manual) 20 H, Eosinophils % (Manual) 10 H, Diff Path Review November, Platelet Estimate SLT DEC, Hypochromasia 1+, Anisocytosis 1+, Sodium 139, Potassium 3.5, Chloride 106, Carbon Dioxide 23.0, Anion Gap 10, BUN 28 H, Creatinine 0.83, Estim Creat Clear Calc 114.27, Est GFR (MDRD) Af Amer 122, Est GFR (MDRD) Non-Af 101, BUN/Creatinine Ratio 33.9 H, Glucose 114 H, C alcium 8.3 L, Total Bilirubin 0.90, AST 32, ALT 31, Alkaline Phosphatase 74, Troponin I High Sens 10, Total Protein 6.1 L, Albumin 2.7 L, Globulin 3.4, A lbumin/Globulin Ratio 0.8 L, TSH 1.590 09/07/24 08:50: Blood Type O POSITIVE, Antibody Screen NEGATIVE, Crossmatch See Detail Micro: Microbiology 09/06/24 21:35 Urine, Clean Catch Urine Culture - Preliminary Culture exhibits no growth. 09/07/24 01:00 Mucosa - Nasopharyngeal Respiratory Panel (PCR) - Final 09/07/24 00:35 Urine, Clean Catch Legionella Antigen - Final 09/07/24 00:35 Urine, Clean Catch Streptococcus pneumoniae Antigen (M - Final Radiography Diagnostic Testing: Radiology Impression Chest CTA 09/06/24 20:37 IMPRESSION: NEGATIVE FOR PULMONARY EMBOLISM. BRONCHIECTASIS AND TREE-IN-BUD OPACITIES PREDOMINANTLY IN THE MID AND LOWER LOBES MOST LIKELY INDICATING INFECTIOUS OR INFLAMMATORY PROCESS. GIVEN THE HISTORY OF LEUKEMIA, A NEOPLASTIC PROCESS IS NOT EXCLUDED. Reading Location: [facility] Physical Exam Const alert, oriented x3, no apparent distress and well nourished General Appearance: cooperative HEENT normocephalic, head/scalp atraumatic and moist oral mucous membranes Eyes PERRL and EOMs intact bilaterally Neck no lymphadenopathy, supple and no JVD Lymph Lymphatic: no lymphadenopathy noted and no lymphedema noted Resp normal respiratory effort, normal air movement and clear to auscultation bilaterally Cardio S1 normal heart sound, S2 normal heart sound and no murmurs Cardio Narrative: A-fib with RVR GI normal to inspection, nondistended, normoactive bowel sounds, soft to palpation, non-tender and non-distended Extremity normal capillary refill, no clubbing, cyanosis or edema and no calf tenderness General Extremity: no tenderness to palpation of joints or extremities Skin General Skin Exam: no breakdown Neuro CN's II-XII intact bilaterally, no focal motor deficits and no sensory deficits noted Motor Exam: strength 5/5 throughout and general weakness Psych thought process normal and cooperative Appearance: appropriate Assessment & Plan Assessment/Plan (1) Atrial fibrillation with RVR: (2) Acute bronchitis: QUALIFIERS: Bronchitis organism: unspecified organism Qualified Code(s): J20.9 - Acute bronchitis, unspecified PLAN: Plan #Afib with RVR * Patient admitted with a complaint of shortness of breath. He had recently been diagnosed with RSV but his shortness of breath persisted so he came into the ED. * Found to be in A-fib with RVR today with heart rate going as high as the 160s. He was seen between the 120s to the 160s. He denied any palpitations. * Currently on p.o. metoprolol. Patient started on Cardizem drip * Most recent echo from September 2023 showed mild concentric left ventricular hypertrophy with EF of 65% and stage II diastolic dysfunction. Repeat 2D echo pending. * Patient was tried on short-term anticoagulants but failed and so concern is whether patient will benefit from antiarrhythmic medication with flecainide followed by electrical cardioversion as documented in his nephrology social worker notes from [place]. * Will consult cardiology. #Bilateral pneumonia in the setting of acute RSV bronchiolitis * CT of the chest showed no PE but showed bronchiectasis and tree-in-bud opacities predominantly in the mid and lower lobes. On IV vancomycin and Zosyn in light of his immunosuppression * Sputum cultures pending. Urine for strep and Legionella negative. #Acute on chronic pancytopenia * Hemoglobin is down to 6.7 today. Platelets also low at 72 and WBC is 0.5. * Will transfuse to 2 units of packed red blood cells today. This is likely due to his history of CLL and non-Hodgkin's lymphoma. * this may be due to the acute viral infection with RSV * If patient remains pancytopenic, will consult oncology. * #CLL and non-Hodgkin's lymphoma * Patient diagnosed in 2018. S/p chemotherapy and immunotherapy. * Follow-up with oncologist on outpatient basis. #Hypertension: Metoprolol held as he is currently on Cardizem drip #DVT prophylaxis: * SCDs. * Not anticoagulated due to history of severe anemia and thrombocytopenia after he started on any anticoagulation for A-fib. Charges/Coding Visit Charges Inpatient E&M: [id number] [facility] Hosp L3
[2024-09-07] MEDS: 0.9% Saline Lock 10 ML Syringe IV (14:49)
[2024-09-07] MEDS: Digoxin 250 MCG/ML Ampul 125 MCG IV (14:49)
--- NOTE | 2024-09-07 15:22 | CON.PCM.CA_ITS ---
Assessment & Plan Assessment/Plan (1) PAF (paroxysmal atrial fibrillation): PLAN: Patient has history of paroxysmal atrial fibrillation. He is noted to have rapid ventricular response with his atrial fibrillation this admission. This is not surprising given his systemic illness with lung infection, severe anemia and pancytopenia. Most important in controlling his heart rate would be treating his lung infection and correcting his anemia. Meanwhile continue diltiazem. Also on metoprolol. Patient not a candidate for anticoagulation because of his severe pancytopenia with marked anemia and history of hematuria with apixaban. With his platelet count down to 72,000, at present he is not even a candidate for antiplatelet agents. If his platelet count improves and stabilizes, then recommend starting him on aspirin with careful monitoring of his blood counts. (2) Anemia: PLAN: Receiving blood transfusion this afternoon. (3) Thrombocytopenia: PLAN: As per oncology/internal medicine. (4) Neutropenia: PLAN: As per oncology/internal medicine. (5) RSV (acute bronchiolitis due to respiratory syncytial virus): PLAN: As per internal medicine. (6) CLL (chronic lymphocytic leukemia): PLAN: As per oncology. HPI Consult Data Date of Consult: 09/07/24 HPI Narrative Reason for Consultation: Atrial fibrillation HPI Narrative: This gentleman has past medical history significant for chronic lymphocytic leukemia, pancytopenia and paroxysmal atrial fibrillation. Previously he was tried on anticoagulation but stopped because of worsening anemia and hematuria. Patient has been admitted to the hospital at this time with complaints of progressive shortness of breath. According to him, he has been having nasal congestion and cough. Positive shortness of breath with exertion. Denies any chest pains. No palpitations. CT scan of the chest shows bronchiectasis along with possible inflammatory/infectious process. He has been noted to be RSV positive. Patient's hemoglobin this morning is 6.7 g/dL. Platelet count is 72,000. Neutropenic. Patient was noted to be in atrial fibrillation with rapid ventricular response. Subsequently we have been asked for evaluation. [facility] Medical History (Updated 09/07/24 @ 15:[address] Armando Vanessa MD) Neutropenia Health care maintenance Dilated aortic root Thrombocytopenia Non Hodgkin's lymphoma BPH (benign prostatic hyperplasia) Splenomegaly CLL (chronic lymphocytic leukemia) Thrombocytopenia due to drugs Leukopenia Neutropenic fever Pancytopenia Contact with and (suspected) exposure to other viral communicable diseases Tobacco abuse counseling Hypertension Anemia Chronic kidney disease (CKD) Pancytopenia Obesity Thrombocytopenia Paroxysmal supraventricular tachycardia (11/27/19) Near syncope (09/2019) Home Medications ?Medication ?Instructions ?Recorded ?Last Taken ?Type acetaminophen 500 mg tablet 500 mg PO Q6H PRN pain 09/06/24 History (Tylenol Extra Strength) metoprolol tartrate 25 mg tablet 25 mg PO BID #60 tabs 07/21/24 09/06/24 Rx albuterol sulfate 90 mcg/actuation 2 puff inhalation Q 4-6H PRN 09/02/24 09/06/24 Rx aerosol inhaler shortness of breath or wheez ing #8.5 grams mometasone 100 mcg/actuation HFA 2 puff inhalation BID #13 grams 09/02/24 09/06/24 Rx aerosol inhaler Allergy/AdvReac Type Severity Reaction Status Date / Time ciprofloxacin (From Cipro) Allergy Intermediate Hives Verified 09/07/24 00:02 ibrutinib (From Imbruvica) Allergy dyspnea/diz Verified 09/07/24 00:02 zness rituximab Allergy Shortness Verified 09/07/24 00:02 of breath prochlorperazine (From AdvReac Unknown Dizziness Verified 09/07/24 00:02 Compazine) apixaban (From Eliquis) AdvReac Chest Verified 09/07/24 00:02 tightness Family History Father Diabetes Hypertension Mother Dementia Surgical History History of tonsillectomy History of bone marrow biopsy Social History household members: spouse Smoking Status: Former smoker Tobacco: How many years used: 15 alcohol intake: never Physical Exam Narrative Comfortable but appears to have conversational dyspnea. Heart sounds 1 and 2 noted. Irregularly irregular. Diffuse bilateral wheeze on auscultation of the chest. Alert oriented x 3. No ankle edema. Risk Stratification Risk Stratification Applicable: No Objective Data Vital Signs: Vital Signs Temp Pulse Resp BP Pulse Ox O2 Del Method 98.4 F 115 H 21 H 93/65 92 Room Air 09/07/24 14:40 09/07/24 14:49 09/07/24 14:40 09/07/24 14:49 09/07/24 14:40 09/07/24 14:40 Oxygen Delivery Method Room Air Weight: 219 lb 12.814 oz Body Mass Index (BMI) 29.7 Intake & Output: Intake and Output for Last 24 Hours 09/05/24 09/06/24 09/07/24 23:59 23:59 23:59 Intake Total 600 / 600 2382.92 / 2382.92 Output Total 750 / 750 Balance 600 / 600 1632.92 / 1632.92 Lab / Micro Data 09/07/24 05:50 09/07/24 05:50 Labs: Laboratory Results - last 24 hr 09/06/24 19:10: WBC 0.8 L*, RBC 2.84 L, Hgb 8.8 L, Hct 25.9 L, MCV 91.2, MCH 31.0, MCHC 34.0, RDW Std Deviation 70.2 H, RDW Coeff of Екатерина 21.4 H, Plt Count 102 L, MPV 10.5, Immature Gran % (Auto) PUBLIC HEALTH ADVISOR, Neut % (Auto) PUBLIC HEALTH ADVISOR, Lymph % (Auto) PUBLIC HEALTH ADVISOR, [place] % (Auto) PUBLIC HEALTH ADVISOR, Eos % (Auto) PUBLIC HEALTH ADVISOR, Baso % (Auto) PUBLIC HEALTH ADVISOR, Absolute Neuts (auto) 0.3 L , Absolute Lymphs (auto) 0.32 L, Total Counted 25, Neutrophils % (Manual) 40 L, Lymphocytes % (Manual) 40, Metamyelocytes % 20 H, Nucleated RBC % 0, Diff Path Review May foll, Atypical Lymphocytes 2+, Toxic Granulation 1+, Platelet Estimate ADEQUATE, Plt Morphology Comment CLUMPED, Polychromasia 1+, Hypochromasia 1+, Anisocytosis 2+, Schistocytes 1+, Sodium 137 09/06/24 19:10: Sodium 137, Potassium 3.6 09/06/24 19:10: Potassium 3.6, Chloride 101 09/06/24 19:10: Chloride 101, Carbon Dioxide 29.0 09/06/24 19:10: Carbon Dioxide 27.0, Anion Gap 7 09/06/24 19:10: Anion Gap 9, BUN 35 H 09/06/24 19:10: BUN 35 H, Creatinine 1.30 09/06/24 19:10: Creatinine 1.27, Estim Creat Clear Calc 72.51 09/06/24 19:10: Estim Creat Clear Calc 74.23, Est GFR (MDRD) Af Amer 72 09/06/24 19:10: Est GFR (MDRD) Af Amer 74, Est GFR (MDRD) Non-Af 60 09/06/24 19:10: Est GFR (MDRD) Non-Af 61, BUN/Creatinine Ratio 26.9 H 09/06/24 19:10: BUN/Creatinine Ratio 27.6 H, Glucose 144 H 09/06/24 19:10: Glucose 140 H, Calcium 9.4 09/06/24 19:10: Calcium 9.1, Total Bilirubin 1.10 H, AST 25, ALT 30, Alkaline Phosphatase 73, Troponin I High Sens 8, Total Protein 7.4, Albumin 3.2, Globulin 4.2, Albumin/Globulin Ratio 0.8 L 09/06/24 20:19: PT 16.3 H, INR 1.3, APTT 33.6, Lactic Acid 1.1 09/06/24 21:35: Urine Color Yellow, Urine Clarity Clear, Urine pH 5.0, Ur Specific [place] 1.015, Urine Protein 30 H, Urine Glucose (UA) Normal, Urine Ketones 5 H, Urine Occult Blood 10 H, Urine Nitrite Negative, Urine Bilirubin Negative, Urine Urobilinogen 1 H, Ur Leukocyte Esterase Negative, Urine RBC 5-10 SEEN, Urine WBC 0-5 SEEN, Ur Squamous Epith Cells 0 SEEN, Urine Bacteria 1+, Hyaline Casts 0-5 SEEN, Urine Mucus 1+ 09/06/24 23:50: Phosphorus 3.7, Magnesium 2.1, Troponin I High Sens 7, P rocalcitonin 0.27 H 09/07/24 01:55: Troponin I High Sens 11 09/07/24 05:50: WBC 0.5 L*, RBC 2.17 L, Hgb 6.7 L, Hct 19.9 L, MCV 91.7, MCH 30.9, MCHC 33.7, RDW Std Deviation 72.7 H, RDW Coeff of Екатерина 21.6 H, Plt Count 72 L, MPV 9.8, Neut % (Auto) Not Reportable, Absolute Neuts (auto) 0.2 L, Absolute Lymphs (auto) 0.20 L, Total Counted 10, Neutrophils % (Manual) 30 L, Lymphocytes % (Manual) 40, Monocytes % (Manual) 20 H, Eosinophils % (Manual) 10 H, Diff Path Review November, Platelet Estimate SLT DEC, Hypochromasia 1+, Anisocytosis 1+, Sodium 139, Potassium 3.5, Chloride 106, Carbon Dioxide 23.0, Anion Gap 10, BUN 28 H, Creatinine 0.83, Estim Creat Clear Calc 114.27, Est GFR (MDRD) Af Amer 122, Est GFR (MDRD) Non-Af 101, BUN/Creatinine Ratio 33.9 H, Glucose 114 H, C alcium 8.3 L, Total Bilirubin 0.90, AST 32, ALT 31, Alkaline Phosphatase 74, Troponin I High Sens 10, Total Protein 6.1 L, Albumin 2.7 L, Globulin 3.4, A lbumin/Globulin Ratio 0.8 L, TSH 1.590 09/07/24 08:50: Blood Type O POSITIVE, Antibody Screen NEGATIVE, Crossmatch See Detail Micro: Microbiology 09/06/24 21:35 Urine, Clean Catch Urine Culture - Preliminary Culture exhibits no growth. 09/07/24 01:00 Mucosa - Nasopharyngeal Respiratory Panel (PCR) - Final 09/07/24 00:35 Urine, Clean Catch Legionella Antigen - Final 09/07/24 00:35 Urine, Clean Catch Streptococcus pneumoniae Antigen (M - Final Cardiology Labs/Tests 09/06/24 19:10: WBC 0.8 L*, RBC 2.84 L, Hgb 8.8 L, Hct 25.9 L, MCV 91.2, MCH 31.0, MCHC 34.0, Plt Count 102 L, MPV 10.5, Immature Gran % (Auto) PUBLIC HEALTH ADVISOR, Neut % (Auto) PUBLIC HEALTH ADVISOR, Lymph % (Auto) PUBLIC HEALTH ADVISOR, [place] % (Auto) PUBLIC HEALTH ADVISOR, Eos % (Auto) PUBLIC HEALTH ADVISOR, Baso % (Auto) PUBLIC HEALTH ADVISOR, Absolute Neuts (auto) 0.3 L, Total Counted 25, Neutrophils % (Manual) 40 L, Lymphocytes % (Manual) 40, Metamyelocytes % 20 H, Nucleated RBC % 0, Sodium 137 09/06/24 19:10: Sodium 137, Potassium 3.6 09/06/24 19:10: Potassium 3.6, Chloride 101 09/06/24 19:10: Chloride 101, Carbon Dioxide 29.0 09/06/24 19:10: Carbon Dioxide 27.0, Anion Gap 7 09/06/24 19:10: Anion Gap 9, BUN 35 H 09/06/24 19:10: BUN 35 H, Creatinine 1.30 09/06/24 19:10: Creatinine 1.27, Est GFR (MDRD) Af Amer 72 09/06/24 19:10: Est GFR (MDRD) Af Amer 74, Est GFR (MDRD) Non-Af 60 09/06/24 19:10: Est GFR (MDRD) Non-Af 61, BUN/Creatinine Ratio 26.9 H 09/06/24 19:10: BUN/Creatinine Ratio 27.6 H, Glucose 144 H 09/06/24 19:10: Glucose 140 H, Calcium 9.4 09/06/24 19:10: Calcium 9.1, Total Bilirubin 1.10 H 09/06/24 20:19: PT 16.3 H, INR 1.3, APTT 33.6, Lactic Acid 1.1 09/06/24 21:35: Urine Color Yellow, Urine Clarity Clear, Urine pH 5.0, Ur Specific [place] 1.015, Urine Protein 30 H, Urine Glucose (UA) Normal, Urine Ketones 5 H, Urine Occult Blood 10 H, Urine Nitrite Negative, Urine Bilirubin Negative, Urine Urobilinogen 1 H, Ur Leukocyte Esterase Negative, Urine RBC 5-10 SEEN, Urine WBC 0-5 SEEN 09/06/24 23:50: Phosphorus 3.7, Magnesium 2.1 09/07/24 05:50: WBC 0.5 L*, RBC 2.17 L, Hgb 6.7 L, Hct 19.9 L, MCV 91.7, MCH 30.9, MCHC 33.7, Plt Count 72 L, MPV 9.8, Neut % (Auto) Not Reportable, Absolute Neuts (auto) 0.2 L, Total Counted 10, Neutrophils % (Manual) 30 L, Lymphocytes % (Manual) 40, Monocytes % (Manual) 20 H, Eosinophils % (Manual) 10 H, Sodium 139, Potassium 3.5, Chloride 106, Carbon Dioxide 23.0, Anion Gap 10, BUN 28 H, Creatinine 0.83, Est GFR (MDRD) Af Amer 122, Est GFR (MDRD) Non-Af 101, B UN/Creatinine Ratio 33.9 H, Glucose 114 H, Calcium 8.3 L, Total Bilirubin 0.90 Rhythm: EKG: ECHO: Stress Test: Cardiac Cath: PCI: CT Surgery: Holter monitor: EPS: PPM: CXR: Chest CT Scan: Radiography Diagnostic Testing: Radiology Impression Chest CTA 09/06/24 20:37 IMPRESSION: NEGATIVE FOR PULMONARY EMBOLISM. BRONCHIECTASIS AND TREE-IN-BUD OPACITIES PREDOMINANTLY IN THE MID AND LOWER LOBES MOST LIKELY INDICATING INFECTIOUS OR INFLAMMATORY PROCESS. GIVEN THE HISTORY OF LEUKEMIA, A NEOPLASTIC PROCESS IS NOT EXCLUDED. Reading Location: [facility] Echocardiogram 09/06/24 23:46 Interpretation Summary Mild concentric left ventricular hypertrophy. The left ventricular ejection fraction is 60 %. Stage 1 diastolic dysfunction. There is mild biatrial dilatation. Right ventricular systolic pressure estimated to be 44 mmHg. Mildly dilated aortic root. Ordering Physician: Arely López Referring Physician: JORGE ALVARADO Performed By: Celeste Gibbons RDCS
[2024-09-07] MEDS: Ipratropium/Albuterol Sulfate 3 ML AMPUL.NEB INHALATION (19:50)
[2024-09-07] MEDS: Diltiazem 125 MG in Dextrose 5%-Water (100mL Bag) 100 ML 15 MG IV (19:50)
[2024-09-08] VITALS (32 sets, daily range): BP systolic 93–127; BP diastolic 48–96; PULSE 76–121; RESP 12–28; TEMP 36.6–37.5; O2SAT 90–99; BMI 30.2
[2024-09-08] MEDS: Ipratropium/Albuterol Sulfate 3 ML AMPUL.NEB INHALATION ×6 (00:18→23:40)
[2024-09-08] MEDS: Piperacil/Tazobactam 3.375 GM in 0.9% Normal Saline (50mL MB+) 50 ML IV ×2 (06:03→14:43)
[2024-09-08] MEDS: Budesonide Respules 0.5 MG/2 ML AMPUL.NEB. INHALATION ×2 (07:57→19:20)
[2024-09-08 08:01] LABS: Absolute Lymphocyte Count 0.28 X10^3/uL (0.83-4.51); Absolute Neutrophil Count 0.2 X10^3/uL (2.0-7.7); Eosinophil# 0.03 X10^3/uL; Eosinophils% 5.7 % (0-5); Hematocrit 21.2 % (40-54); Lymphocyte # 0.28 X10^3/ul (0.83-4.51); Lymphocyte % 52.8 % (19-41); Mean Corpuscular Hgb 30.8 pg (27.0-32.0); Mean Corpuscular Volume 93.4 fL (80-94); Mean Platelet Vol. 9.8 fl (6.2-12.0); Monocyte# 0.02 X10^3/uL; Monocyte% 3.8 % (0-10); NRBC Flagged by Analyzer 0 % (0-5); Neutrophil % 37.7 % (47-70); POSITIVE COUNT YES; POSITIVE DIFFERENTIAL YES; POSITIVE MORPHOLOGY YES; Platelet Count 69 K/mm3 (150-450); RBC Distribution Width SD 69.8 fl (35.1-43.9); Red Blood Count 2.27 M/mm3 (4.6-6.2)
[2024-09-08 08:04] LABS: White Blood Count 0.5 K/mm3 (4.4-11.0)
[2024-09-08 08:05] LABS: Differential Indicated SCAN CRITERIA MET
[2024-09-08 08:44] LABS: Pathologist Review Reviewed
[2024-09-08 08:45] LABS: Anion Gap 6 (5-15); BUN 21 mg/dL (7-18); BUN/Creat Ratio 18.9 RATIO (10-20); Calcium,Total 8.7 mg/dL (8.5-10.1); Chloride 110 mmol/L (98-107); Creatinine, Serum 1.11 mg/dL (0.70-1.30); EST Glomerular Filtration Rate 72 mL/min (>60); Est Glom Filt Rate - Afr Amer 87 mL/min (>60); Estimated Creatinine Clearance 86.04 ml/min; Glucose 116 mg/dL (74-106); Potassium 3.8 mmol/L (3.5-5.1); Sodium Level 140 mmol/L (136-145)
[2024-09-08 08:46] LABS: Pathologist Review Reviewed
[2024-09-08] MEDS: 0.9% Saline Lock 10 ML Syringe IV ×3 (09:13→12:10)
[2024-09-08] MEDS: Metoprolol Tartrate 25 MG Tablet PO ×2 (09:14→21:28)
--- NOTE | 2024-09-08 09:14 | PCM.PN.CARD ---
Subjective Subjective Continues to complain of shortness of breath. Objective Data Vital Signs: Vital Signs Temp Pulse Resp BP Pulse Ox O2 Del Method O2 Flow Rate 98.1 F 110 H 24 H 127/96 H 95 Nasal Cannula 2 09/08/24 09:07 09/08/24 09:07 09/08/24 09:07 09/08/24 09:07 09/08/24 09:07 09/08/24 09:07 09/08/24 09:07 Oxygen Flow Rate (L/min) 2 Oxygen Delivery Method Nasal Cannula Weight: 223 lb 1.725 oz Body Mass Index (BMI) 30.2 Intake & Output: Intake and Output for Last 24 Hours 09/06/24 09/07/24 09/08/24 23:59 23:59 23:59 Intake Total 600 / 600 3326.92 / 3826.92 1627.34 / 1627.34 Output Total 750 / 1300 850 / 850 Balance 600 / 600 2576.92 / 2526.92 777.34 / 777.34 Lab / Micro Data 09/08/24 07:51 09/08/24 07:51 Labs: Laboratory Results - last 24 hr 09/06/24 19:10: Diff Path Review Reviewed 09/07/24 05:50: WBC 0.5 L*, RBC 2.17 L, Hgb 6.7 L, Hct 19.9 L, MCV 91.7, MCH 30.9, MCHC 33.7, RDW Std Deviation 72.7 H, RDW Coeff of Екатерина 21.6 H, Plt Count 72 L, MPV 9.8, Absolute Neuts (auto) 0.2 L, Absolute Lymphs (auto) 0.20 L, Total Counted 10, Neutrophils % (Manual) 30 L, Lymphocytes % (Manual) 40, Monocytes % (Manual) 20 H, Eosinophils % (Manual) 10 H, Diff Path Review Reviewed, Platelet Estimate SLT DEC, Hypochromasia 1+, Anisocytosis 1+ 09/07/24 08:40: Crossmatch See Detail 09/07/24 08:50: Blood Type O POSITIVE, Antibody Screen NEGATIVE, Crossmatch See Detail 09/08/24 07:51: WBC 0.5 L*, RBC 2.27 L, Hgb 7.0 L, Hct 21.2 L, MCV 93.4, MCH 30.8, MCHC 33.0, RDW Std Deviation 69.8 H, RDW Coeff of Екатерина 21.0 H, Plt Count 69 L, MPV 9.8, Immature Gran % (Auto) 0.000, Neut % (Auto) 37.7 L, Lymph % (Auto) 52.8 H, [place] % (Auto) 3.8, Eos % (Auto) 5.7 H, Baso % (Auto) 0.0, Absolute Neuts (auto) 0.2 L, Absolute Lymphs (auto) 0.28 L, Nucleated RBC % 0, Sodium 140, Potassium 3.8, Chloride 110 H, Carbon Dioxide 24.0, Anion Gap 6, BUN 21 H, Creatinine 1.11, Estim Creat Clear Calc 86.04, Est GFR (MDRD) Af Amer 87, Est GFR (MDRD) Non-Af 72, BUN/Creatinine Ratio 18.9, Glucose 116 H, Calcium 8.7 Micro: Microbiology 09/06/24 21:35 Urine, Clean Catch Urine Culture - Preliminary Culture exhibits no growth. 09/07/24 01:00 Mucosa - Nasopharyngeal Respiratory Panel (PCR) - Final Cardiology Labs/Tests 09/07/24 05:50: WBC 0.5 L*, RBC 2.17 L, Hgb 6.7 L, Hct 19.9 L, MCV 91.7, MCH 30.9, MCHC 33.7, Plt Count 72 L, MPV 9.8, Absolute Neuts (auto) 0.2 L, Total Counted 10, Neutrophils % (Manual) 30 L, Lymphocytes % (Manual) 40, Monocytes % (Manual) 20 H, Eosinophils % (Manual) 10 H 09/08/24 07:51: WBC 0.5 L*, RBC 2.27 L, Hgb 7.0 L, Hct 21.2 L, MCV 93.4, MCH 30.8, MCHC 33.0, Plt Count 69 L, MPV 9.8, Immature Gran % (Auto) 0.000, Neut % (Auto) 37.7 L, Lymph % (Auto) 52.8 H, [place] % (Auto) 3.8, Eos % (Auto) 5.7 H, Baso % (Auto) 0.0, Absolute Neuts (auto) 0.2 L, Nucleated RBC % 0, Sodium 140, Potassium 3.8, Chloride 110 H, Carbon Dioxide 24.0, Anion Gap 6, BUN 21 H, Creatinine 1.11, Est GFR (MDRD) Af Amer 87, Est GFR (MDRD) Non-Af 72, BUN/Creatinine Ratio 18.9, Glucose 116 H, Calcium 8.7 Rhythm: EKG: ECHO: Stress Test: Cardiac Cath: PCI: CT Surgery: Holter monitor: EPS: PPM: CXR: Chest CT Scan: Radiography Diagnostic Testing: Radiology Impression Echocardiogram 09/06/24 23:46 Interpretation Summary Mild concentric left ventricular hypertrophy. The left ventricular ejection fraction is 60 %. Stage 1 diastolic dysfunction. There is mild biatrial dilatation. Right ventricular systolic pressure estimated to be 44 mmHg. Mildly dilated aortic root. Ordering Physician: Arely López Referring Physician: JORGE ALVARADO Performed By: Celeste Gibbons RDCS Physical Exam Narrative Comfortable but appears to have conversational dyspnea. Heart sounds 1 and 2 noted. Irregularly irregular. Diffuse bilateral wheeze on auscultation of the chest. Alert oriented x 3. No ankle edema. Assessment & Plan Assessment/Plan (1) PAF (paroxysmal atrial fibrillation): PLAN: Patient has history of paroxysmal atrial fibrillation. Ventricular rate better. Change diltiazem to oral. Patient not a candidate for anticoagulation because of his severe pancytopenia with marked anemia and history of hematuria with apixaban. With his platelet count down to 69,000, at present he is not even a candidate for antiplatelet agents. If his platelet count improves and stabilizes, then recommend starting him on aspirin with careful monitoring of his blood counts. (2) Anemia: PLAN: Status post blood transfusion yesterday. Hemoglobin only up to 7.0 g/dL this morning. (3) Thrombocytopenia: PLAN: As per oncology/internal medicine. (4) Neutropenia: PLAN: As per oncology/internal medicine. (5) RSV (acute bronchiolitis due to respiratory syncytial virus): PLAN: As per internal medicine. (6) CLL (chronic lymphocytic leukemia): PLAN: As per oncology. PLAN: Plan We will be happy to see patient as needed. Will sign off for now. Please call if needed.
[2024-09-08 09:17] LABS: Anisocytosis 2+; Platelet Estimate MOD DEC (ADEQ)
[2024-09-08] MEDS: dilTIAZem CD 180 MG Capsule PO (10:13)
--- NOTE | 2024-09-08 11:07 | PN_ITS ---
Subjective Subjective Patient seen and examined. He was lying comfortably in bed and had no complaints. Review of systems is otherwise negative. His HR has improved, though he is hypotensive today. Review of systems is otherwise negative. Hb is also 7. Objective Data Objective Data Vital Signs: Vital Signs Temp Pulse Resp BP Pulse Ox O2 Del Method O2 Flow Rate 98.1 F 95 25 H 99/48 L 96 Nasal Cannula 2 09/08/24 10:22 09/08/24 10:22 09/08/24 10:22 09/08/24 10:22 09/08/24 10:22 09/08/24 10:22 09/08/24 10:22 Oxygen Flow Rate (L/min) 2 Oxygen Delivery Method Nasal Cannula Weight: 223 lb 1.725 oz Body Mass Index (BMI) 30.2 Intake & Output: Intake and Output for Last 24 Hours 09/06/24 09/07/24 09/08/24 23:59 23:59 23:59 Intake Total 600 / 600 3326.92 / 3826.92 1694.76 / 1694.76 Output Total 750 / 1300 850 / 850 Balance 600 / 600 2576.92 / 2526.92 844.76 / 844.76 Lab / Micro Data 09/08/24 07:51 09/08/24 07:51 Labs: Laboratory Results - last 24 hr 09/06/24 19:10: Diff Path Review Reviewed 09/07/24 05:50: Diff Path Review Reviewed 09/07/24 08:40: Crossmatch See Detail 09/07/24 08:50: Blood Type O POSITIVE, Antibody Screen NEGATIVE, Crossmatch See Detail 09/08/24 07:51: WBC 0.5 L*, RBC 2.27 L, Hgb 7.0 L, Hct 21.2 L, MCV 93.4, MCH 30.8, MCHC 33.0, RDW Std Deviation 69.8 H, RDW Coeff of Екатерина 21.0 H, Plt Count 69 L, MPV 9.8, Immature Gran % (Auto) 0.000, Neut % (Auto) 37.7 L, Lymph % (Auto) 52.8 H, [place] % (Auto) 3.8, Eos % (Auto) 5.7 H, Baso % (Auto) 0.0, Absolute Neuts (auto) 0.2 L, Absolute Lymphs (auto) 0.28 L, Nucleated RBC % 0, Differential Comment , Diff Path Review May foll, Platelet Estimate MOD DEC, Anisocytosis 2+, Sodium 140, Potassium 3.8, Chloride 110 H, Carbon Dioxide 24.0, Anion Gap 6, BUN 21 H, Creatinine 1.11, Estim Creat Clear Calc 86.04, Est GFR (MDRD) Af Amer 87, Est GFR (MDRD) Non-Af 72, BUN/Creatinine Ratio 18.9, Glucose 116 H, Calcium 8.7 Micro: Microbiology 09/06/24 21:35 Urine, Clean Catch Urine Culture - Preliminary Culture exhibits no growth. 09/07/24 01:00 Mucosa - Nasopharyngeal Respiratory Panel (PCR) - Final 09/07/24 00:35 Urine, Clean Catch Legionella Antigen - Final 09/07/24 00:35 Urine, Clean Catch Streptococcus pneumoniae Antigen (M - Final Radiography Diagnostic Testing: Radiology Impression Echocardiogram 09/06/24 23:46 Interpretation Summary Mild concentric left ventricular hypertrophy. The left ventricular ejection fraction is 60 %. Stage 1 diastolic dysfunction. There is mild biatrial dilatation. Right ventricular systolic pressure estimated to be 44 mmHg. Mildly dilated aortic root. Ordering Physician: Arely López Referring Physician: JORGE ALVARADO Performed By: Celeste Gibbons RDCS Physical Exam Const alert, oriented x3, no apparent distress and well nourished General Appearance: cooperative HEENT normocephalic, head/scalp atraumatic and moist oral mucous membranes Eyes PERRL and EOMs intact bilaterally Neck no lymphadenopathy, supple and no JVD Lymph Lymphatic: no lymphadenopathy noted and no lymphedema noted Resp normal respiratory effort, normal air movement and clear to auscultation bilaterally Cardio S1 normal heart sound, S2 normal heart sound and no murmurs Cardio Narrative: A-fib, rate controlled. GI normal to inspection, nondistended, normoactive bowel sounds, soft to palpation, non-tender and non-distended Extremity normal capillary refill, no clubbing, cyanosis or edema and no calf tenderness General Extremity: no tenderness to palpation of joints or extremities Skin General Skin Exam: no breakdown Neuro CN's II-XII intact bilaterally, no focal motor deficits and no sensory deficits noted Motor Exam: strength 5/5 throughout and general weakness Psych thought process normal and cooperative Appearance: appropriate Assessment & Plan Assessment/Plan (1) Atrial fibrillation with RVR: (2) Acute bronchitis: QUALIFIERS: Bronchitis organism: unspecified organism Qualified Code(s): J20.9 - Acute bronchitis, unspecified PLAN: Plan #Afib with RVR * remains on cardizem drip. Now rate controlled * cardiology on board. Per cardiology, to switch to PO cardizem today. * 2D echo shows EF of 60% with stage 1 diastolic dysfunction and mild concentric LVH, mild biatrial dilatation and RVSP of 44mmHg. 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 * #Bilateral pneumonia in the setting of acute RSV bronchiolitis * CT of the chest showed no PE but showed bronchiectasis and tree-in-bud opacities predominantly in the mid and lower lobes. On IV vancomycin and Zosyn in light of his immunosuppression * respiratory panel negative. Sputum culture pending #Acute on chronic pancytopenia * Hb dropped to 6.7 yesterday so she was transfused with one unit of PRBC. * Hb today is 7, so she will be given another unit of PRBC. * wbc is 0.5 and platelets of 69 today. * This is likely due to his history of CLL and non-Hodgkin's lymphoma. * this may be due to the acute viral infection with RSV * will monitor for now * #CLL and non-Hodgkin's lymphoma * Patient diagnosed in 2018. S/p chemotherapy and immunotherapy. * Follow-up with oncologist on outpatient basis. #Hypertension: Metoprolol held as he is currently on Cardizem drip #DVT prophylaxis: * SCDs. * Not anticoagulated due to history of severe anemia and thrombocytopenia after he started on any anticoagulation for A-fib. Charges/Coding Visit Charges Inpatient E&M: 35832 Subs Hosp L2
[2024-09-08 11:30] LABS: Vancomycin, Trough Level 15.4 ug/mL (5.0-15.0)
[2024-09-08] MEDS: Vancomycin Trough/Random Due 1 LAB MC ×2 (11:42)
--- NOTE | 2024-09-08 11:50 | NS ---
09/08/24: Pt is in neutropenic precautions. Will add neutropenic diet order. Radha Swan RDN, LD
[2024-09-08] MEDS: Vancomycin HCl 1,750 MG in 0.9% Normal Saline (500mL Bag) 500 ML 250 MG IV ×2 (12:26→21:28)
--- NOTE | 2024-09-08 12:34 | PCM.RX.CS ---
Consult Antibiotic Management Pharmacy has been consulted to manage selected antibiotic: Vancomycin Type of Intervention Type of Consult: Follow-up Suspected Infection Suspected Infection: Pneumonia Labs Labs: Sodium 140 mmol/L (136-145) 09/08/24 07:51 Potassium 3.8 mmol/L (3.5-5.1) 09/08/24 07:51 Chloride 110 mmol/L (98-107) H 09/08/24 07:51 Carbon Dioxide 24.0 mmol/L (21.0-32.0) 09/08/24 07:51 Anion Gap 6 (5-15) 09/08/24 07:51 BUN 21 mg/dL (7-18) H 09/08/24 07:51 Creatinine 1.11 mg/dL (0.70-1.30) 09/08/24 07:51 Est GFR (MDRD) Af Amer 87 mL/min (>60) 09/08/24 07:51 Est GFR (MDRD) Non-Af 72 mL/min (>60) 09/08/24 07:51 BUN/Creatinine Ratio 18.9 RATIO (10-20) 09/08/24 07:51 Glucose 116 mg/dL (74-106) H 09/08/24 07:51 Vancomycin Trough 15.4 ug/mL (5.0-15.0) H 09/08/24 10:46 Microbiology Microbiology: Microbiology 09/06/24 21:35 Urine, Clean Catch Urine Culture - Preliminary Culture exhibits no growth. 09/07/24 01:00 Mucosa - Nasopharyngeal Respiratory Panel (PCR) - Final 09/07/24 00:35 Urine, Clean Catch Legionella Antigen - Final 09/07/24 00:35 Urine, Clean Catch Streptococcus pneumoniae Antigen (M - Final Goal Trough Goal Trough: 15-20 mcg/mL Pharmacy Plan for Drug Dosing Pharmacy Plan for Drug Dosing: VANCOMYCIN LEVEL RECEIVED Current Vancomycin Dose: 1750mg q12h (1030,2230) Number of Doses Received: x2 of current dose Vancomycin Level: 15.4 (drawn 09/08 at 1046) Hours Since Last Dose: 13 hours since last 1750mg dose Renal Function: SrCr 1.11 Renal Function Trend: SrCr increasing (was 0.83 on 09/07/24) Lab/Micro: Vancomycin Plan/Comments: resulted trough of 15.4 is within the ordered goal trough range of 15-20. recommend continuing current dose of 1750mg q12h and checking a trough prior to the 4th dose Pending Level: 09/09/24 at 2200 Pharmacy Service will continue to monitor and adjust dosing as required. Follow-Up Labs Follow-Up Labs: Trough: Vancomycin (09/09/24 at 2200)
[2024-09-08 14:24] LABS: Pathologist Review Reviewed
[2024-09-08 15:27] LABS: BNP,B-Type NATRIURETIC PEPTIDE 314.9 pg/mL (0-100)
[2024-09-09] VITALS (15 sets, daily range): BP systolic 102–142; BP diastolic 75–115; PULSE 94–136; RESP 16–24; TEMP 36.4–36.9; O2SAT 87–96; BMI 28.8
[2024-09-09] MEDS: Piperacil/Tazobactam 3.375 GM in 0.9% Normal Saline (50mL MB+) 50 ML IV ×4 (00:12→21:08)
--- NOTE | 2024-09-09 02:25 | PCM.HOSP.N ---
Hospitalist Note Patient HR sustaining 115-120, already had evening medications. Will give low dose cardizem bolus x 1. May need oral reigmen further adjusted. Cardiology following.
[2024-09-09] MEDS: dilTIAZem 25 MG/5 ML Vial 5 MG IV BOLUS (02:53)
[2024-09-09] MEDS: Ipratropium/Albuterol Sulfate 3 ML AMPUL.NEB INHALATION ×4 (03:22→15:54)
[2024-09-09 06:43] LABS: Absolute Lymphocyte Count 0.19 X10^3/uL (0.83-4.51); Absolute Neutrophil Count 0.2 X10^3/uL (2.0-7.7); Eosinophil# 0.02 X10^3/uL; Eosinophils% 5.3 % (0-5); Hematocrit 22.6 % (40-54); Hemoglobin 7.5 g/dL (13.0-16.5); Lymphocyte # 0.19 X10^3/ul (0.83-4.51); Mean Corp Hgb Conc 33.2 g/dL (32-36); Mean Corpuscular Hgb 30.7 pg (27.0-32.0); Mean Corpuscular Volume 92.6 fL (80-94); Mean Platelet Vol. 10.4 fl (6.2-12.0); Monocyte# 0.01 X10^3/uL; Monocyte% 2.6 % (0-10); NRBC Flagged by Analyzer 0 % (0-5); Neutrophil # 0.15 X10^3/uL (2.7-7.7); Neutrophil % 39.5 % (47-70); POSITIVE COUNT YES; POSITIVE DIFFERENTIAL YES; POSITIVE MORPHOLOGY YES; Platelet Count 63 K/mm3 (150-450); RBC Distribution Width CV 20.8 % (11.6-14.6); RBC Distribution Width SD 71.1 fl (35.1-43.9); Red Blood Count 2.44 M/mm3 (4.6-6.2)
[2024-09-09 06:53] LABS: Differential Indicated SCAN CRITERIA MET; White Blood Count 0.4 K/mm3 (4.4-11.0)
[2024-09-09 07:15] LABS: Anion Gap 7 (5-15); BUN 20 mg/dL (7-18); BUN/Creat Ratio 14.8 RATIO (10-20); Calcium,Total 8.5 mg/dL (8.5-10.1); Chloride 111 mmol/L (98-107); Creatinine, Serum 1.35 mg/dL (0.70-1.30); EST Glomerular Filtration Rate 57 mL/min (>60); Est Glom Filt Rate - Afr Amer 69 mL/min (>60); Estimated Creatinine Clearance 69.21 ml/min; Glucose 125 mg/dL (74-106); Potassium 3.4 mmol/L (3.5-5.1); Sodium Level 142 mmol/L (136-145)
[2024-09-09] MEDS: Budesonide Respules 0.5 MG/2 ML AMPUL.NEB. INHALATION ×2 (07:59→20:18)
[2024-09-09] MEDS: dilTIAZem CD 180 MG Capsule PO (08:40)
[2024-09-09] MEDS: Metoprolol Tartrate 25 MG Tablet PO ×2 (08:40→21:07)
[2024-09-09] MEDS: 0.9% Saline Lock 10 ML Syringe IV ×3 (08:41→23:23)
[2024-09-09 08:44] LABS: Anisocytosis 2+; Platelet Estimate MOD DEC (ADEQ)
[2024-09-09] MEDS: Vancomycin HCl 1,750 MG in 0.9% Normal Saline (500mL Bag) 500 ML 250 MG IV (10:14)
--- NOTE | 2024-09-09 10:42 | PN_ITS ---
Subjective Subjective Patient seen and examined. He had no active complaints. He is now off cardizem drip. His wbc is down to 0.4. Absolute neutrophil count is 0.2. Objective Data Objective Data Vital Signs: Vital Signs Temp Pulse Resp BP Pulse Ox O2 Del Method O2 Flow Rate 98.5 F 94 18 106/75 92 Room Air 2 09/09/24 08:36 09/09/24 08:40 09/09/24 08:36 09/09/24 08:40 09/09/24 08:36 09/09/24 08:36 09/09/24 03:22 Oxygen Flow Rate (L/min) 2 Oxygen Delivery Method Room Air Weight: 212 lb 11.937 oz Body Mass Index (BMI) 28.8 Intake & Output: Intake and Output for Last 24 Hours 09/07/24 09/08/24 09/09/24 23:59 23:59 23:59 Intake Total 3326.92 / 3826.92 3499.76 / 3899.76 1335 / 1335 Output Total 750 / 1300 1100 / 1100 Balance 2576.92 / 2526.92 2399.76 / 2799.76 1335 / 1335 Lab / Micro Data 09/09/24 05:08 09/09/24 05:08 Labs: Laboratory Results - last 24 hr 09/06/24 19:10: B-Natriuretic Peptide 314.9 H 09/07/24 08:40: Crossmatch See Detail 09/08/24 07:51: Diff Path Review Reviewed 09/08/24 10:46: Vancomycin Trough 15.4 H 09/09/24 05:08: WBC 0.4 L*, RBC 2.44 L, Hgb 7.5 L, Hct 22.6 L, MCV 92.6, MCH 30.7, MCHC 33.2, RDW Std Deviation 71.1 H, RDW Coeff of Екатерина 20.8 H, Plt Count 63 L, MPV 10.4, Immature Gran % (Auto) 2.600 H, Neut % (Auto) 39.5 L, Lymph % (Auto) 50.0 H, [place] % (Auto) 2.6, Eos % (Auto) 5.3 H, Baso % (Auto) 0.0, A bsolute Neuts (auto) 0.2 L, Absolute Lymphs (auto) 0.19 L, Nucleated RBC % 0, Differential Comment COMMENT, Diff Path Review May foll, Platelet Estimate MOD DEC, Anisocytosis 2+, Sodium 142, Potassium 3.4 L, Chloride 111 H, Carbon Dioxide 24.0, Anion Gap 7, BUN 20 H, Creatinine 1.35 H, Estim Creat Clear Calc 69.21, Est GFR (MDRD) Af Amer 69, Est GFR (MDRD) Non-Af 57 L, BUN/Creatinine Ratio 14.8, Glucose 125 H, Calcium 8.5 Micro: Microbiology 09/06/24 21:35 Urine, Clean Catch Urine Culture - Final Culture exhibits no growth. 09/07/24 01:00 Mucosa - Nasopharyngeal Respiratory Panel (PCR) - Final 09/07/24 00:35 Urine, Clean Catch Legionella Antigen - Final 09/07/24 00:35 Urine, Clean Catch Streptococcus pneumoniae Antigen (M - Final Physical Exam Const alert, oriented x3, no apparent distress and well nourished General Appearance: cooperative HEENT normocephalic, head/scalp atraumatic and moist oral mucous membranes Eyes PERRL and EOMs intact bilaterally Neck no lymphadenopathy, supple and no JVD Lymph Lymphatic: no lymphadenopathy noted and no lymphedema noted Resp normal respiratory effort, normal air movement and clear to auscultation bilaterally Cardio regular rate, regular rhythm, S1 normal heart sound, S2 normal heart sound and no murmurs GI normal to inspection, nondistended, normoactive bowel sounds, soft to palpation, non-tender and non-distended Extremity normal capillary refill, no clubbing, cyanosis or edema and no calf tenderness General Extremity: no tenderness to palpation of joints or extremities Skin General Skin Exam: no breakdown Neuro CN's II-XII intact bilaterally, no focal motor deficits and no sensory deficits noted Motor Exam: strength 5/5 throughout and general weakness Psych thought process normal and cooperative Appearance: appropriate Assessment & Plan Assessment/Plan (1) Atrial fibrillation with RVR: (2) Acute bronchitis: QUALIFIERS: Bronchitis organism: unspecified organism Qualified Code(s): J20.9 - Acute bronchitis, unspecified PLAN: Plan #Afib with RVR * now off cardizem drip. Switched to PO cardizem * cardiology on board. * 2D echo shows EF of 60% with stage 1 diastolic dysfunction and mild concentric LVH, mild biatrial dilatation and RVSP of 44mmHg. 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 * #Bilateral pneumonia in the setting of acute RSV bronchiolitis * CT of the chest showed no PE but showed bronchiectasis and tree-in-bud opacities predominantly in the mid and lower lobes. On IV vancomycin and Zosyn in light of his immunosuppression * respiratory panel negative. Sputum culture pending #Acute on chronic pancytopenia * Hemoglobin today 7.5 after 2 units of packed red blood cells. Platelets are 63 and WBC is down to 0.4. Absolute neutrophil count is only 0.2. * This is likely due to his history of CLL and non-Hodgkin's lymphoma. * this may be due to the acute viral infection with RSV * Will start on Granix. * #CLL and non-Hodgkin's lymphoma * Patient diagnosed in 2018. S/p chemotherapy and immunotherapy. * Follow-up with oncologist on outpatient basis. #Hypertension: Metoprolol held as he is currently on Cardizem drip #DVT prophylaxis: * SCDs. * Not anticoagulated due to history of severe anemia and thrombocytopenia after he started on any anticoagulation for A-fib. Charges/Coding Visit Charges Inpatient E&M: 43398 [facility] Hosp L3
[2024-09-09] MEDS: TBO-FILGRASTIM 300 MCG/0.5 ML ML SC (12:20)
[2024-09-09 13:44] LABS: Pathologist Review Reviewed
[2024-09-09] MEDS: guaiFENesin 10 ML UDC (200MG/10ML) 20 ML PO (21:07)
[2024-09-09 22:46] LABS: Vancomycin, Trough Level 28.5 ug/mL (5.0-15.0)
--- NOTE | 2024-09-09 22:48 | PCM.HOSP.N ---
Hospitalist Note Patient again with recurrent sustained RVR. Will given cardizem bolus 10 mg x 1 now.
--- NOTE | 2024-09-09 23:04 | PCM.RX.CS ---
Consult Antibiotic Management Pharmacy has been consulted to manage selected antibiotic: Vancomycin Type of Intervention Type of Consult: Follow-up Labs Labs: Sodium 142 mmol/L (136-145) 09/09/24 05:08 Potassium 3.4 mmol/L (3.5-5.1) L 09/09/24 05:08 Chloride 111 mmol/L (98-107) H 09/09/24 05:08 Carbon Dioxide 24.0 mmol/L (21.0-32.0) 09/09/24 05:08 Anion Gap 7 (5-15) 09/09/24 05:08 BUN 20 mg/dL (7-18) H 09/09/24 05:08 Creatinine 1.35 mg/dL (0.70-1.30) H 09/09/24 05:08 Est GFR (MDRD) Af Amer 69 mL/min (>60) 09/09/24 05:08 Est GFR (MDRD) Non-Af 57 mL/min (>60) L 09/09/24 05:08 BUN/Creatinine Ratio 14.8 RATIO (10-20) 09/09/24 05:08 Glucose 125 mg/dL (74-106) H 09/09/24 05:08 Vancomycin Trough 28.5 ug/mL (5.0-15.0) H 09/09/24 22:05 Microbiology Microbiology: Microbiology 09/06/24 21:35 Urine, Clean Catch Urine Culture - Final Culture exhibits no growth. 09/07/24 01:00 Mucosa - Nasopharyngeal Respiratory Panel (PCR) - Final 09/07/24 00:35 Urine, Clean Catch Legionella Antigen - Final 09/07/24 00:35 Urine, Clean Catch Streptococcus pneumoniae Antigen (M - Final Goal Trough Goal Trough: 15-20 mcg/mL Pharmacy Plan for Drug Dosing Pharmacy Plan for Drug Dosing: Pharmacy Service will continue to monitor and adjust dosing as required. TROUGH 28.5 @ 12 HOURS. HOLD DOSE AND DRAW RANDOM LEVEL IN 12 HOURS Follow-Up Labs Follow-Up Labs: Trough: Vancomycin Date/Time Labs Ordered Labs to be done on [date and time ordered]: 09/10 @ 1000 RANDOM
[2024-09-09] MEDS: dilTIAZem 25 MG/5 ML Vial 10 MG IV BOLUS (23:22)
[2024-09-10] VITALS (11 sets, daily range): BP systolic 116–142; BP diastolic 81–96; PULSE 97–120; RESP 16–22; TEMP 36.4–36.8; O2SAT 90–95; BMI 32.9
[2024-09-10] MEDS: 0.9% Saline Lock 10 ML Syringe IV (01:18)
[2024-09-10] MEDS: guaiFENesin 10 ML UDC (200MG/10ML) 20 ML PO (01:18)
[2024-09-10] MEDS: Piperacil/Tazobactam 3.375 GM in 0.9% Normal Saline (50mL MB+) 50 ML IV ×3 (05:10→21:00)
[2024-09-10] MEDS: Ipratropium/Albuterol Sulfate 3 ML AMPUL.NEB INHALATION ×3 (07:31→15:08)
[2024-09-10 07:39] LABS: Absolute Lymphocyte Count 0.25 X10^3/uL (0.83-4.51); Absolute Neutrophil Count 0.3 X10^3/uL (2.0-7.7); Basophil# 0.01 X10^3/uL; Basophil% 1.3 % (0-1); Eosinophil# 0.05 X10^3/uL; Eosinophils% 6.5 % (0-5); Hematocrit 24.1 % (40-54); Hemoglobin 7.9 g/dL (13.0-16.5); Lymphocyte # 0.25 X10^3/ul (0.83-4.51); Lymphocyte % 32.5 % (19-41); Mean Corp Hgb Conc 32.8 g/dL (32-36); Mean Corpuscular Hgb 30.6 pg (27.0-32.0); Mean Corpuscular Volume 93.4 fL (80-94); Mean Platelet Vol. 10.2 fl (6.2-12.0); Monocyte# 0.02 X10^3/uL; Monocyte% 2.6 % (0-10); NRBC Flagged by Analyzer 2.6 % (0-5); Neutrophil # 0.34 X10^3/uL (2.7-7.7); Neutrophil % 44.1 % (47-70); POSITIVE COUNT YES; POSITIVE DIFFERENTIAL YES; POSITIVE MORPHOLOGY YES; Platelet Count 82 K/mm3 (150-450); RBC Distribution Width CV 20.3 % (11.6-14.6); RBC Distribution Width SD 69.4 fl (35.1-43.9); Red Blood Count 2.58 M/mm3 (4.6-6.2)
[2024-09-10 07:54] LABS: White Blood Count 0.8 K/mm3 (4.4-11.0)
[2024-09-10] MEDS: TBO-FILGRASTIM 300 MCG/0.5 ML ML SC (08:00)
[2024-09-10] MEDS: Metoprolol Tartrate 25 MG Tablet PO ×2 (08:00→20:59)
[2024-09-10] MEDS: dilTIAZem CD 180 MG Capsule PO (08:00)
[2024-09-10 08:14] LABS: Anion Gap 6 (5-15); BUN 19 mg/dL (7-18); Chloride 111 mmol/L (98-107); Creatinine, Serum 1.46 mg/dL (0.70-1.30); EST Glomerular Filtration Rate 52 mL/min (>60); Est Glom Filt Rate - Afr Amer 63 mL/min (>60); Estimated Creatinine Clearance 68.12 ml/min; Glucose 102 mg/dL (74-106); Potassium 3.9 mmol/L (3.5-5.1); Sodium Level 142 mmol/L (136-145)
[2024-09-10 10:37] LABS: Vancomycin, Random Level 18.7 ug/mL (0.0-15.0)
--- NOTE | 2024-09-10 11:06 | PCM.RX.CS ---
Consult Antibiotic Management Pharmacy has been consulted to manage selected antibiotic: Vancomycin Type of Intervention Type of Consult: Follow-up Prior Doses of Antibiotics Prior Doses of Antibiotics Received/Current Regimen: the most recent dose before it was held due to a high trough was 1750mg IV q12h Labs Labs: Sodium 142 mmol/L (136-145) 09/10/24 07:10 Potassium 3.9 mmol/L (3.5-5.1) 09/10/24 07:10 Chloride 111 mmol/L (98-107) H 09/10/24 07:10 Carbon Dioxide 25.0 mmol/L (21.0-32.0) 09/10/24 07:10 Anion Gap 6 (5-15) 09/10/24 07:10 BUN 19 mg/dL (7-18) H 09/10/24 07:10 Creatinine 1.46 mg/dL (0.70-1.30) H 09/10/24 07:10 Est GFR (MDRD) Af Amer 63 mL/min (>60) 09/10/24 07:10 Est GFR (MDRD) Non-Af 52 mL/min (>60) L 09/10/24 07:10 BUN/Creatinine Ratio 13.0 RATIO (10-20) 09/10/24 07:10 Glucose 102 mg/dL (74-106) 09/10/24 07:10 Vancomycin Trough 28.5 ug/mL (5.0-15.0) H 09/09/24 22:05 Random Vancomycin 18.7 ug/mL (0.0-15.0) H 09/10/24 09:47 Microbiology Microbiology: Microbiology 09/06/24 21:35 Urine, Clean Catch Urine Culture - Final Culture exhibits no growth. 09/07/24 01:00 Mucosa - Nasopharyngeal Respiratory Panel (PCR) - Final 09/07/24 00:35 Urine, Clean Catch Legionella Antigen - Final 09/07/24 00:35 Urine, Clean Catch Streptococcus pneumoniae Antigen (M - Final Dosing Weight Weight used for dosin.2 kg Estimated Creatinine Clearance Estimated Creatinine Clearance: 68 ml/min Goal Trough Goal Trough: 15-20 mcg/mL Pharmacy Plan for Drug Dosing Pharmacy Plan for Drug Dosing: The vanc random level drawn at 09:47 (approx 24 hours after the last dose) was 18.7. This is back under 20 so will resume dosing at a new dose of 1500mg q24h. Repeat a trough before the 3rd dose. Of note, the patient's SCr has risen to 1.46 today (CrCl 68) so will be conservative in dosing at this time. Pharmacy Service will continue to monitor and adjust dosing as required. Follow-Up Labs Follow-Up Labs: Trough: Vancomycin Date/Time Labs Ordered Labs to be done on [date and time ordered]: 09/12/24 11:30
--- NOTE | 2024-09-10 11:20 | PN_ITS ---
Subjective Subjective Patient seen and examined. He had no active complaints. HE did still have palpitations with sitting up. He is down to 2L of oxygen. Review of systems is otherwise negative. Objective Data Objective Data Vital Signs: Vital Signs Temp Pulse Resp BP Pulse Ox O2 Del Method O2 Flow Rate 97.8 F 120 H 22 H 116/88 H 90 Nasal Cannula 2 09/10/24 07:57 09/10/24 08:00 09/10/24 07:57 09/10/24 07:57 09/10/24 07:57 09/10/24 09:05 09/10/24 09:05 Oxygen Flow Rate (L/min) 2 Oxygen Delivery Method Nasal Cannula Weight: 242 lb 15.19 oz Body Mass Index (BMI) 32.9 Intake & Output: Intake and Output for Last 24 Hours 09/08/24 09/09/24 09/10/24 23:59 23:59 23:59 Intake Total 3499.76 / 3899.76 3440 / 3440 700 / 700 Output Total 1100 / 1100 Balance 2399.76 / 2799.76 3440 / 3440 700 / 700 Lab / Micro Data 09/10/24 07:10 09/10/24 07:10 Labs: Laboratory Results - last 24 hr 09/09/24 05:08: Diff Path Review Reviewed 09/09/24 22:05: Vancomycin Trough 28.5 H 09/10/24 07:10: WBC 0.8 L*, RBC 2.58 L, Hgb 7.9 L, Hct 24.1 L, MCV 93.4, MCH 30.6, MCHC 32.8, RDW Std Deviation 69.4 H, RDW Coeff of Екатерина 20.3 H, Plt Count 82 L, MPV 10.2, Immature Gran % (Auto) 13.000 H, Neut % (Auto) 44.1 L, Lymph % (Auto) 32.5, Cross % (Auto) 2.6, Eos % (Auto) 6.5 H, Baso % (Auto) 1.3 H, A bsolute Neuts (auto) 0.3 L, Absolute Lymphs (auto) 0.25 L, Nucleated RBC % 2.6, Sodium 142, Potassium 3.9, Chloride 111 H, Carbon Dioxide 25.0, Anion Gap 6, BUN 19 H, Creatinine 1.46 H, Estim Creat Clear Calc 68.12, Est GFR (MDRD) Af Amer 63, Est GFR (MDRD) Non-Af 52 L, BUN/Creatinine Ratio 13.0, Glucose 102, Calcium 9.0 09/10/24 09:47: Random Vancomycin 18.7 H Micro: Microbiology 09/06/24 21:35 Urine, Clean Catch Urine Culture - Final Culture exhibits no growth. 09/07/24 01:00 Mucosa - Nasopharyngeal Respiratory Panel (PCR) - Final 09/07/24 00:35 Urine, Clean Catch Legionella Antigen - Final 09/07/24 00:35 Urine, Clean Catch Streptococcus pneumoniae Antigen (M - Final Physical Exam Const alert, oriented x3, no apparent distress and well nourished General Appearance: cooperative HEENT normocephalic, head/scalp atraumatic and moist oral mucous membranes Eyes PERRL and EOMs intact bilaterally Neck no lymphadenopathy, supple and no JVD Lymph Lymphatic: no lymphadenopathy noted and no lymphedema noted Resp normal respiratory effort, normal air movement and clear to auscultation bilaterally Cardio regular rate, S1 normal heart sound, S2 normal heart sound and no murmurs Cardio Narrative: A-fib, rate controlled. GI normal to inspection, nondistended, normoactive bowel sounds, soft to palpation, non-tender and non-distended Extremity normal capillary refill, no clubbing, cyanosis or edema and no calf tenderness General Extremity: no tenderness to palpation of joints or extremities Skin General Skin Exam: no breakdown Neuro CN's II-XII intact bilaterally, no focal motor deficits and no sensory deficits noted Motor Exam: strength 5/5 throughout and general weakness Psych thought process normal and cooperative Appearance: appropriate Assessment & Plan Assessment/Plan (1) Atrial fibrillation with RVR: (2) Acute bronchitis: QUALIFIERS: Bronchitis organism: unspecified organism Qualified Code(s): J20.9 - Acute bronchitis, unspecified PLAN: Plan #Afib with RVR * now on PO cardizem * cardiology on board. * 2D echo shows EF of 60% with stage 1 diastolic dysfunction and mild concentric LVH, mild biatrial dilatation and RVSP of 44mmHg. 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 * #Bilateral pneumonia in the setting of acute RSV bronchiolitis * CT of the chest showed no PE but showed bronchiectasis and tree-in-bud opacities predominantly in the mid and lower lobes. On IV vancomycin and Zosyn in light of his immunosuppression * respiratory panel negative. Sputum culture pending #Acute on chronic pancytopenia * s/p transfusion of 2 units of packed red blood cells. * WBC is up to 0.8 today and platelets are 82 today. Absolute neutrophil count is 0.3 and hemoglobin is 7.9. * This is likely due to his history of CLL and non-Hodgkin's lymphoma. * this may be due to the acute viral infection with RSV * continue granix until absolute neutrophil count is >1 * #CLL and non-Hodgkin's lymphoma * Patient diagnosed in 2018. S/p chemotherapy and immunotherapy. * Follow-up with oncologist on outpatient basis. #Hypertension: Metoprolol held as he is currently on Cardizem drip #DVT prophylaxis: * SCDs. * Not anticoagulated due to history of severe anemia and thrombocytopenia after he started on any anticoagulation for A-fib. Charges/Coding Visit Charges Inpatient E&M: 22505 Subs Hosp L2
[2024-09-10] MEDS: Vancomycin HCl 1,500 MG in 0.9% Normal Saline (500mL Bag) 500 ML 250 MG IV (12:11)
[2024-09-10] MEDS: 0.9% Normal Saline (100mL Bag) 100 ML 15 ML IV (12:11)
[2024-09-10] MEDS: Furosemide 40 MG/4 ML Vial IV (16:03)
[2024-09-11] VITALS (27 sets, daily range): BP systolic 94–149; BP diastolic 47–90; PULSE 69–164; RESP 15–29; TEMP 36.7–37.1; O2SAT 90–94; BMI 32.3
[2024-09-11 05:13] LABS: Hematocrit 24.3 % (40-54); Hemoglobin 7.7 g/dL (13.0-16.5); Mean Corp Hgb Conc 31.7 g/dL (32-36); Mean Corpuscular Hgb 29.7 pg (27.0-32.0); Mean Corpuscular Volume 93.8 fL (80-94); POSITIVE COUNT YES; POSITIVE DIFFERENTIAL YES; POSITIVE MORPHOLOGY YES; Platelet Count 92 K/mm3 (150-450); RBC Distribution Width CV 20.3 % (11.6-14.6); Red Blood Count 2.59 M/mm3 (4.6-6.2)
[2024-09-11] MEDS: Piperacil/Tazobactam 3.375 GM in 0.9% Normal Saline (50mL MB+) 50 ML IV (05:27)
[2024-09-11 05:36] LABS: Anion Gap 7 (5-15); BUN 20 mg/dL (7-18); BUN/Creat Ratio 13.7 RATIO (10-20); Calcium,Total 8.8 mg/dL (8.5-10.1); Chloride 108 mmol/L (98-107); Creatinine, Serum 1.46 mg/dL (0.70-1.30); EST Glomerular Filtration Rate 52 mL/min (>60); Est Glom Filt Rate - Afr Amer 63 mL/min (>60); Estimated Creatinine Clearance 67.46 ml/min; Glucose 113 mg/dL (74-106); Potassium 3.5 mmol/L (3.5-5.1); Sodium Level 144 mmol/L (136-145)
[2024-09-11 06:47] LABS: White Blood Count 0.7 K/mm3 (4.4-11.0)
[2024-09-11] MEDS: Metoprolol Tartrate 25 MG Tablet PO ×2 (08:30→21:26)
[2024-09-11] MEDS: TBO-FILGRASTIM 300 MCG/0.5 ML ML SC (08:30)
[2024-09-11] MEDS: dilTIAZem CD 180 MG Capsule PO (08:33)
[2024-09-11 09:08] LABS: Differential Indicated MANUAL DIFF; Scan Smear per Review Criteria MANUAL DIFF
[2024-09-11 09:09] LABS: Basophil 1 % (0-1); Eosinophil 3 % (0-5); Lymphocyte 52 % (19-41); Monocyte 2 % (0-10); Neutrophil-Segmented 42 % (47-70); Total Cells Counted 100 (MANUAL DIFF)
[2024-09-11 09:10] LABS: Absolute Lymphocyte Count 0.38 X10^3/uL (0.83-4.51); Absolute Neutrophil Count 0.3 X10^3/uL (2.0-7.7)
[2024-09-11 09:11] LABS: Anisocytosis 1+; Ovalocyte 1+; Platelet Morphology MD; Polychromasia 1+
[2024-09-11 09:20] LABS: Dohle Bodies 2+; Toxic Granulation 1+
[2024-09-11] MEDS: Ipratropium/Albuterol Sulfate 3 ML AMPUL.NEB INHALATION (10:33)
[2024-09-11] MEDS: Digoxin 250 MCG/ML Ampul 125 MCG IV ×2 (11:12→17:22)
[2024-09-11] MEDS: Furosemide 40 MG/4 ML Vial IV (13:42)
[2024-09-11] MEDS: Diltiazem 125 MG in Dextrose 5%-Water (100mL Bag) 100 ML IV (13:55)
--- NOTE | 2024-09-11 14:30 | PCM.PN.CARD ---
Subjective Subjective Seen and evaluated today at bedside along with the nursing staff having symptoms of palpitation when he walked to the bathroom while resting then no symptoms reported Objective Data Vital Signs: Vital Signs Temp Pulse Resp BP Pulse Ox O2 Del Method O2 Flow Rate 98.0 F 144 H 20 H 124/89 H 91 Nasal Cannula 2 09/11/24 12:16 09/11/24 14:15 09/11/24 14:15 09/11/24 14:15 09/11/24 14:15 09/11/24 14:15 09/11/24 14:15 Oxygen Flow Rate (L/min) 2 Oxygen Delivery Method Nasal Cannula Weight: 238 lb 1.588 oz Body Mass Index (BMI) 32.3 Intake & Output: Intake and Output for Last 24 Hours 09/09/24 09/10/24 09/11/24 23:59 23:59 23:59 Intake Total 3440 / 3440 2380 / 2930 751.67 / 751.67 Balance 3440 / 3440 2380 / 2930 751.67 / 751.67 Lab / Micro Data 09/11/24 04:31 09/11/24 04:31 Labs: Laboratory Results - last 24 hr 09/11/24 04:31: WBC 0.7 L*, RBC 2.59 L, Hgb 7.7 L, Hct 24.3 L, MCV 93.8, MCH 29.7, MCHC 31.7 L, RDW Std Deviation 69.0 H, RDW Coeff of Екатерина 20.3 H, Plt Count 92 L, MPV 10.0, Immature Gran % (Auto) SUPPLEMENTAL NURSE, Neut % (Auto) SUPPLEMENTAL NURSE, Lymph % (Auto) SUPPLEMENTAL NURSE, [place] % (Auto) SUPPLEMENTAL NURSE, Eos % (Auto) SUPPLEMENTAL NURSE, Baso % (Auto) SUPPLEMENTAL NURSE, Absolute Neuts (auto) 0.3 L, Absolute Lymphs (auto) 0.38 L, Total Counted 100, Neutrophils % (Manual) 42 L, Lymphocytes % (Manual) 52 H, Monocytes % (Manual) 2, Eosinophils % (Manual) 3, Basophils % (Manual) 1, Nucleated RBC % SUPPLEMENTAL NURSE, Diff Path Review May foll, Toxic Granulation 1+, Dohle Bodies 2+, Plt Morphology Comment MD, Polychromasia 1+, Anisocytosis 1+, Ovalocytes 1+, Sodium 144, Potassium 3.5, Chloride 108 H, Carbon Dioxide 29.0, Anion Gap 7, BUN 20 H, Creatinine 1.46 H, Estim Creat Clear Calc 67.46, Est GFR (MDRD) Af Amer 63, Est GFR (MDRD) Non-Af 52 L, BUN/Creatinine Ratio 13.7, Glucose 113 H, Calcium 8.8 Micro: Microbiology 09/09/24 23:33 Sputum, Expectorated/Coughed Gram Stain - Final 09/09/24 23:33 Sputum, Expectorated/Coughed Respiratory Culture - Preliminary Appears to be normal respiratory tramaine. Further studies to follow. 09/06/24 21:19 Blood Culture (Wb) - Anticubital Left Blood Culture - Preliminary No growth in 48 hours. 09/06/24 20:19 Blood Culture (Wb) - Anticubital Left Blood Culture - Preliminary No growth in 48 hours. Cardiology Labs/Tests 09/11/24 04:31: WBC 0.7 L*, RBC 2.59 L, Hgb 7.7 L, Hct 24.3 L, MCV 93.8, MCH 29.7, MCHC 31.7 L, Plt Count 92 L, MPV 10.0, Immature Gran % (Auto) SUPPLEMENTAL NURSE, Neut % (Auto) SUPPLEMENTAL NURSE, Lymph % (Auto) SUPPLEMENTAL NURSE, [place] % (Auto) SUPPLEMENTAL NURSE, Eos % (Auto) SUPPLEMENTAL NURSE, Baso % (Auto) SUPPLEMENTAL NURSE, Absolute Neuts (auto) 0.3 L, Total Counted 100, Neutrophils % (Manual) 42 L, Lymphocytes % (Manual) 52 H, Monocytes % (Manual) 2, Eosinophils % (Manual) 3, Basophils % (Manual) 1, Nucleated RBC % SUPPLEMENTAL NURSE, Sodium 144, Potassium 3.5, Chloride 108 H, Carbon Dioxide 29.0, Anion Gap 7, BUN 20 H, Creatinine 1.46 H, Est GFR (MDRD) Af Amer 63, Est GFR (MDRD) Non-Af 52 L, BUN/Creatinine Ratio 13.7, Glucose 113 H, Calcium 8.8 Rhythm: EKG: ECHO: Stress Test: Cardiac Cath: PCI: CT Surgery: Holter monitor: EPS: PPM: CXR: Chest CT Scan: Assessment & Plan Assessment/Plan (1) RSV (acute bronchiolitis due to respiratory syncytial virus): (2) Neutropenia: (3) Anemia: (4) Non Hodgkin's lymphoma: (5) Thrombocytopenia: (6) PAF (paroxysmal atrial fibrillation): (7) CLL (chronic lymphocytic leukemia): PLAN: Cardiac care plan I saw this patient along with the nursing staff today in the progressive care unit. As patient has paroxysmal A-fib with RVR. I was asked by the medical team to evaluate this patient who was recently seen by his sports health club membership advisors patient has paroxysmal atrial fibrillation noted he has RVR and based on his review of the record he is not a candidate for anticoagulation patient had severe pancytopenia with marked anemia requiring blood transfusion History of CLL/Hodgkin lymphoma and had been seen and treated by the oncologist. Review of the telemetry monitor showed A-fib with RVR Transthoracic echocardiogram recently showed EF preserved 60% Stage I diastolic dysfunction Mild biatrial dilatation RV systolic pressure moderately elevated around 44 mmHg. From cardiac standpoint recommendation will be to continue rate control using Cardizem IV in addition to digoxin as needed and beta-fausto metoprolol. I also put a consult to the oncologist to evaluate and follow-up If further plan needed his sports health club membership advisors will resume cardiac care and follow-up. Carey Avila MD,FACC,[facility] exercise equipment repair technician
--- NOTE | 2024-09-11 14:33 | PN_ITS ---
Subjective Subjective Patient seen and examined. He had no complaints. He still gets tachycardic with getting up and moving. Later in the day patient was noted to be tachycardic and was in A-fib with RVR. His blood cultures are negative. Objective Data Objective Data Vital Signs: Vital Signs Temp Pulse Resp BP Pulse Ox O2 Del Method O2 Flow Rate 98.0 F 144 H 20 H 124/89 H 91 Nasal Cannula 2 09/11/24 12:16 09/11/24 14:15 09/11/24 14:15 09/11/24 14:15 09/11/24 14:15 09/11/24 14:15 09/11/24 14:15 Oxygen Flow Rate (L/min) 2 Oxygen Delivery Method Nasal Cannula Weight: 238 lb 1.588 oz Body Mass Index (BMI) 32.3 Intake & Output: Intake and Output for Last 24 Hours 09/09/24 09/10/24 09/11/24 23:59 23:59 23:59 Intake Total 3440 / 3440 2380 / 2930 751.67 / 751.67 Balance 3440 / 3440 2380 / 2930 751.67 / 751.67 Lab / Micro Data 09/11/24 04:31 09/11/24 04:31 Labs: Laboratory Results - last 24 hr 09/11/24 04:31: WBC 0.7 L*, RBC 2.59 L, Hgb 7.7 L, Hct 24.3 L, MCV 93.8, MCH 29.7, MCHC 31.7 L, RDW Std Deviation 69.0 H, RDW Coeff of Екатерина 20.3 H, Plt Count 92 L, MPV 10.0, Immature Gran % (Auto) ELECTRIC GOLF CART REPAIRERS, Neut % (Auto) ELECTRIC GOLF CART REPAIRERS, Lymph % (Auto) ELECTRIC GOLF CART REPAIRERS, [place] % (Auto) ELECTRIC GOLF CART REPAIRERS, Eos % (Auto) ELECTRIC GOLF CART REPAIRERS, Baso % (Auto) ELECTRIC GOL[employer] C[employer] REPAIRERS, Absolute Neuts (auto) 0.3 L , Absolute Lymphs (auto) 0.38 L, Total Counted 100, Neutrophils % (Manual) 42 L, Lymphocytes % (Manual) 52 H, Monocytes % (Manual) 2, Eosinophils % (Manual) 3, Basophils % (Manual) 1, Nucleated RBC % ELECTRIC GOL[employer] C[employer] REPAIRERS, Diff Path Review May foll, Toxic Granulation 1+, Dohle Bodies 2+, Plt Morphology Comment MD, Polychromasia 1+, Anisocytosis 1+, Ovalocytes 1+, Sodium 144, Potassium 3.5, Chloride 108 H, Carbon Dioxide 29.0, Anion Gap 7, BUN 20 H, Creatinine 1.46 H, Estim Creat Clear Calc 67.46, Est GFR (MDRD) Af Amer 63, Est GFR (MDRD) Non-Af 52 L, BUN/Creatinine Ratio 13.7, Glucose 113 H, Calcium 8.8 Micro: Microbiology 09/09/24 23:33 Sputum, Expectorated/Coughed Gram Stain - Final 09/09/24 23:33 Sputum, Expectorated/Coughed Respiratory Culture - Preliminary Appears to be normal respiratory tramaine. Further studies to follow. 09/06/24 21:19 Blood Culture (Wb) - Anticubital Left Blood Culture - Preliminary No growth in 48 hours. 09/06/24 20:19 Blood Culture (Wb) - Anticubital Left Blood Culture - Preliminary No growth in 48 hours. 09/06/24 21:35 Urine, Clean Catch Urine Culture - Final Culture exhibits no growth. 09/07/24 01:00 Mucosa - Nasopharyngeal Respiratory Panel (PCR) - Final 09/07/24 00:35 Urine, Clean Catch Legionella Antigen - Final 09/07/24 00:35 Urine, Clean Catch Streptococcus pneumoniae Antigen (M - Final Physical Exam Const alert, oriented x3, no apparent distress and well nourished General Appearance: cooperative HEENT normocephalic, head/scalp atraumatic and moist oral mucous membranes Eyes PERRL and EOMs intact bilaterally Neck no lymphadenopathy, supple and no JVD Lymph Lymphatic: no lymphadenopathy noted and no lymphedema noted Resp normal respiratory effort, normal air movement and clear to auscultation bilaterally Cardio S1 normal heart sound, S2 normal heart sound and no murmurs Cardio Narrative: A-fib with RVR GI normal to inspection, nondistended, normoactive bowel sounds, soft to palpation, non-tender and non-distended Extremity normal capillary refill, no clubbing, cyanosis or edema and no calf tenderness General Extremity: no tenderness to palpation of joints or extremities Skin General Skin Exam: no breakdown Neuro CN's II-XII intact bilaterally, no focal motor deficits and no sensory deficits noted Motor Exam: strength 5/5 throughout and general weakness Psych thought process normal and cooperative Appearance: appropriate Assessment & Plan Assessment/Plan (1) Atrial fibrillation with RVR: (2) Acute bronchitis: QUALIFIERS: Bronchitis organism: unspecified organism Qualified Code(s): J20.9 - Acute bronchitis, unspecified PLAN: Plan #Afib with RVR * Was initially on Cardizem drip and switched to p.o. Cardizem. However patient back in A-fib with RVR today. Given a dose of digoxin but it did not help. Will place patient back on Cardizem drip. * cardiology on board. Discussed with Dr. Yuan who is the covering sky line yarder and he said if patient remains in RVR he may be considered for electrical cardioversion. * 2D echo shows EF of 60% with stage 1 diastolic dysfunction and mild concentric LVH, mild biatrial dilatation and RVSP of 44mmHg. 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 * #Bilateral pneumonia in the setting of acute RSV bronchiolitis * CT of the chest showed no PE but showed bronchiectasis and tree-in-bud opacities predominantly in the mid and lower lobes. On IV vancomycin and Zosyn in light of his immunosuppression * respiratory panel negative. Sputum culture showing normal respiratory tramaine * Blood cultures are negative. IV vancomycin and Zosyn therefore discontinued and patient was placed on p.o. doxycycline for 5 days. #Acute on chronic pancytopenia * s/p transfusion of 2 units of packed red blood cells. * WBC is 0.7 today and platelets are up to 92 today. Absolute neutrophil count is still 0.3 and hemoglobin is 7.7. * This is likely due to his history of CLL and non-Hodgkin's lymphoma. * this may be due to the acute viral infection with RSV * continue granix until absolute neutrophil count is >1 * #CLL and non-Hodgkin's lymphoma * Patient diagnosed in 2018. S/p chemotherapy and immunotherapy. * Follow-up with oncologist on outpatient basis. #Hypertension: Metoprolol held as he is currently on Cardizem drip #DVT prophylaxis: * SCDs. * Not anticoagulated due to history of severe anemia and thrombocytopenia after he started on any anticoagulation for A-fib. Charges/Coding Visit Charges Inpatient E&M: 22686 [facility] Hosp L3
[2024-09-11 14:36] LABS: Partial Thromboplast Time 30.4 Seconds (24.1-36.2)
[2024-09-11] MEDS: Doxycycline 100 MG CAPSULE PO (21:26)
[2024-09-11] MEDS: 0.9% Saline Lock 10 ML Syringe IV (21:32)
[2024-09-11] MEDS: Diltiazem 125 MG in Dextrose 5%-Water (100mL Bag) 100 ML 15 MG IV (22:49)
[2024-09-12] VITALS (27 sets, daily range): BP systolic 89–130; BP diastolic 50–81; PULSE 61–109; RESP 14–27; TEMP 36.7–37.1; O2SAT 81–99; BMI 32.3
[2024-09-12 06:50] LABS: Absolute Lymphocyte Count 0.32 X10^3/uL (0.83-4.51); Absolute Neutrophil Count 0.3 X10^3/uL (2.0-7.7); Eosinophil# 0.04 X10^3/uL; Eosinophils% 6.1 % (0-5); Hematocrit 22.8 % (40-54); Hemoglobin 7.4 g/dL (13.0-16.5); Lymphocyte # 0.32 X10^3/ul (0.83-4.51); Lymphocyte % 48.5 % (19-41); Mean Corp Hgb Conc 32.5 g/dL (32-36); Mean Corpuscular Volume 92.3 fL (80-94); Mean Platelet Vol. 9.4 fl (6.2-12.0); Monocyte# 0.01 X10^3/uL; Monocyte% 1.5 % (0-10); NRBC Flagged by Analyzer 0 % (0-5); Neutrophil # 0.29 X10^3/uL (2.7-7.7); Neutrophil % 43.9 % (47-70); POSITIVE COUNT YES; POSITIVE DIFFERENTIAL YES; POSITIVE MORPHOLOGY YES; Platelet Count 79 K/mm3 (150-450); RBC Distribution Width CV 19.5 % (11.6-14.6); RBC Distribution Width SD 65.8 fl (35.1-43.9); Red Blood Count 2.47 M/mm3 (4.6-6.2)
[2024-09-12 06:59] LABS: White Blood Count 0.7 K/mm3 (4.4-11.0)
[2024-09-12 07:00] LABS: Differential Indicated SCAN CRITERIA MET
[2024-09-12] MEDS: Diltiazem 125 MG in Dextrose 5%-Water (100mL Bag) 100 ML 15 MG IV (07:09)
[2024-09-12 07:21] LABS: Anion Gap 7 (5-15); BUN 22 mg/dL (7-18); BUN/Creat Ratio 15.6 RATIO (10-20); Calcium,Total 8.5 mg/dL (8.5-10.1); Chloride 107 mmol/L (98-107); Creatinine, Serum 1.41 mg/dL (0.70-1.30); EST Glomerular Filtration Rate 54 mL/min (>60); Est Glom Filt Rate - Afr Amer 66 mL/min (>60); Estimated Creatinine Clearance 69.94 ml/min; Glucose 113 mg/dL (74-106); Potassium 3.2 mmol/L (3.5-5.1); Sodium Level 143 mmol/L (136-145)
[2024-09-12 07:35] LABS: Anisocytosis 1+
[2024-09-12 07:36] LABS: Hypochromasia 1+; Platelet Estimate MOD DEC (ADEQ)
--- NOTE | 2024-09-12 09:02 | PN.CARD_ITS ---
Subjective Subjective Patient seen at the bedside. He continues to have a cough with scant production. His heart rate is much better controlled at 75 to 80 bpm on IV Cardizem p.o. Cardizem p.o. Lanoxin and p.o. metoprolol 25 twice daily. The patient is not a candidate for anticoagulation or antiplatelet therapy given his current hematologic situation. He also has a history of hematuria on Eliquis in the past. The patient's [id number] score equals 0. Objective Data Vital Signs: Vital Signs Temp Pulse Resp BP Pulse Ox O2 Del Method O2 Flow Rate 98.5 F 84 25 H 119/76 93 Nasal Cannula 3 09/12/24 04:00 09/12/24 08:00 09/12/24 08:00 09/12/24 08:00 09/12/24 08:00 09/12/24 08:41 09/12/24 08:41 Oxygen Flow Rate (L/min) 3 Oxygen Delivery Method Nasal Cannula Weight: 238 lb 12.17 oz Body Mass Index (BMI) 32.3 Intake & Output: Intake and Output for Last 24 Hours 09/10/24 09/11/24 09/12/24 23:59 23:59 23:59 Intake Total 2380 / 2930 1407.75 / 1662.75 375.00 / 375.00 Output Total 475 / 475 Balance 2380 / 2930 1407.75 / 1362.75 -100.00 / -100.00 Lab / Micro Data Attestation: I reviewed the patient's lab results. 09/12/24 06:26 09/12/24 06:26 Labs: Laboratory Results - last 24 hr 09/11/24 04:31: Immature Gran % (Auto) RESEARCH COMPUTING SPECIALIST, Neut % (Auto) RESEARCH COMPUTING SPECIALIST, Lymph % (Auto) RESEARCH COMPUTING SPECIALIST, [place] % (Auto) RESEARCH COMPUTING SPECIALIST, Eos % (Auto) RESEARCH COMPUTING SPECIALIST, Baso % (Auto) RESEARCH COMPUTING SPECIALIST, Absolute Neuts (auto) 0.3 L , Absolute Lymphs (auto) 0.38 L, Total Counted 100, Neutrophils % (Manual) 42 L, Lymphocytes % (Manual) 52 H, Monocytes % (Manual) 2, Eosinophils % (Manual) 3, Basophils % (Manual) 1, Nucleated RBC % RESEARCH COMPUTING SPECIALIST, Diff Path Review May foll, Toxic Granulation 1+, Dohle Bodies 2+, Plt Morphology Comment MD, Polychromasia 1+, Anisocytosis 1+, Ovalocytes 1+ 09/11/24 14:05: APTT 30.4 09/12/24 06:26: WBC 0.7 L*, RBC 2.47 L, Hgb 7.4 L, Hct 22.8 L, MCV 92.3, MCH 30.0, MCHC 32.5, RDW Std Deviation 65.8 H, RDW Coeff of Екатерина 19.5 H, Plt Count 79 L, MPV 9.4, Immature Gran % (Auto) 0.000, Neut % (Auto) 43.9 L, Lymph % (Auto) 48.5 H, [place] % (Auto) 1.5, Eos % (Auto) 6.1 H, Baso % (Auto) 0.0, Absolute Neuts (auto) 0.3 L, Absolute Lymphs (auto) 0.32 L, Nucleated RBC % 0, Differential Comment , Diff Path Review May foll, Platelet Estimate MOD DEC, Hypochromasia 1+, Anisocytosis 1+, Sodium 143, Potassium 3.2 L, Chloride 107, Carbon Dioxide 29.0, Anion Gap 7, BUN 22 H, Creatinine 1.41 H, Estim Creat Clear Calc 69.94, Est GFR (MDRD) Af Amer 66, Est GFR (MDRD) Non-Af 54 L, BUN/Creatinine Ratio 15.6, Glucose 113 H, Calcium 8.5 Micro: Microbiology 09/06/24 21:19 Blood Culture (Wb) - Anticubital Left Blood Culture - Final No growth in 5 days. 09/06/24 20:19 Blood Culture (Wb) - Anticubital Left Blood Culture - Final No growth in 5 days. 09/09/24 23:33 Sputum, Expectorated/Coughed Gram Stain - Final 09/09/24 23:33 Sputum, Expectorated/Coughed Respiratory Culture - Preliminary Appears to be normal respiratory tramaine. Further studies to follow. Rhythm Strip Rhythm Strip: A-fib Rate: 78 Cardiology Labs/Tests 09/11/24 04:31: Immature Gran % (Auto) RESEARCH COMPUTING SPECIALIST, Neut % (Auto) RESEARCH COMPUTING SPECIALIST, Lymph % (Auto) RESEARCH COMPUTING SPECIALIST, [place] % (Auto) RESEARCH COMPUTING SPECIALIST, Eos % (Auto) RESEARCH COMPUTING SPECIALIST, Baso % (Auto) RESEARCH COMPUTING SPECIALIST, Absolute Neuts (auto) 0.3 L , Total Counted 100, Neutrophils % (Manual) 42 L, Lymphocytes % (Manual) 52 H, Monocytes % (Manual) 2, Eosinophils % (Manual) 3, Basophils % (Manual) 1, Nucleated RBC % RESEARCH COMPUTING SPECIALIST 09/11/24 14:05: APTT 30.4 09/12/24 06:26: WBC 0.7 L*, RBC 2.47 L, Hgb 7.4 L, Hct 22.8 L, MCV 92.3, MCH 30.0, MCHC 32.5, Plt Count 79 L, MPV 9.4, Immature Gran % (Auto) 0.000, Neut % (Auto) 43.9 L, Lymph % (Auto) 48.5 H, [place] % (Auto) 1.5, Eos % (Auto) 6.1 H, Baso % (Auto) 0.0, Absolute Neuts (auto) 0.3 L, Nucleated RBC % 0, Sodium 143, P otassium 3.2 L, Chloride 107, Carbon Dioxide 29.0, Anion Gap 7, BUN 22 H, C reatinine 1.41 H, Est GFR (MDRD) Af Amer 66, Est GFR (MDRD) Non-Af 54 L, BUN/Creatinine Ratio 15.6, Glucose 113 H, Calcium 8.5 Rhythm: EKG: ECHO: Stress Test: Cardiac Cath: PCI: CT Surgery: Holter monitor: EPS: PPM: CXR: Chest CT Scan: Physical Exam Const alert and oriented x3 HEENT normocephalic Neck no JVD Resp normal respiratory effort Auscultation: crackles bilateral base Cardio regular rate Rhythm: abnormal rhythm irregularly irregular Heart Sounds: S1 normal and S2 normal; Negative for click, gallop or murmur Extremity no pedal edema Neuro Neuro Narrative: Alert and oriented x 3 Psych mental status grossly normal Assessment & Plan Assessment/Plan (1) Atrial fibrillation with RVR: PLAN: Patient's rate is better controlled on IV Cardizem. Will try to increase his metoprolol to 50 mg twice daily and then wean and DC the IV Cardizem. We do not know how long he has been in atrial fibrillation it was documented in September 08 when he was originally seen by cardiology. The patient's [id number] score equals 0. He is not an ideal candidate even for antiplatelet therapy and his failed Eliquis in the past due to gross hematuria. He remains neutropenic and thrombocytopenic. He is also hypokalemic which needs to be replaced. Given the [id number] score of 0 maintaining rate control is the best option in my opinion. PLAN: Plan 1. Replace potassium. 2. Increase metoprolol to 50 mg twice daily with hold for less than heart rate 55 or systolic less than 100. 3. At this point in time would not recommend direct-current cardioversion as we are not certain how long he has been in atrial fibrillation, we cannot safely anticoagulate him or place him on antiplatelet therapy and his [id number] score is 0. Charges/Coding Visit Charges Inpatient E&M: 00178 Subs Hosp L2
[2024-09-12] MEDS: Metoprolol Tartrate 50 MG Tablet PO ×2 (09:37→23:30)
[2024-09-12] MEDS: Doxycycline 100 MG CAPSULE PO ×2 (09:38→23:30)
[2024-09-12] MEDS: TBO-FILGRASTIM 300 MCG/0.5 ML ML SC (09:38)
[2024-09-12] MEDS: Potassium Chloride Oral Tablet 20 MEQ 40 MEQ PO (10:50)
[2024-09-12] MEDS: 0.9% Saline Lock 10 ML Syringe IV (11:36)
[2024-09-12] MEDS: dilTIAZem CD 180 MG Capsule PO (11:36)
--- NOTE | 2024-09-12 12:26 | PN.HOSP_ITS ---
Subjective Subjective Doing well, no issues overnight. Still remains in A-fib though the rate is fairly well-controlled Objective Data Objective Data Vital Signs: Vital Signs Temp Pulse Resp BP Pulse Ox O2 Del Method O2 Flow Rate 98.1 F 72 16 103/59 L 93 Nasal Cannula 3 09/12/24 09:00 09/12/24 11:36 09/12/24 11:15 09/12/24 11:30 09/12/24 11:30 09/12/24 11:30 09/12/24 11:30 Oxygen Flow Rate (L/min) 3 Oxygen Delivery Method Nasal Cannula Weight: 238 lb 12.17 oz Body Mass Index (BMI) 32.3 Intake & Output: Intake and Output for Last 24 Hours 09/11/24 09/12/24 09/13/24 03:59 03:59 03:59 Intake Total 2930 / 2930 1107.75 / 1122.75 118.16 / 118.16 Output Total 300 / 300 175 / 175 Balance 2930 / 2930 807.75 / 822.75 -56.84 / -56.84 Lab / Micro Data 09/12/24 06:26 09/12/24 06:26 Labs: Laboratory Results - last 24 hr 09/11/24 14:05: APTT 30.4 09/12/24 06:26: WBC 0.7 L*, RBC 2.47 L, Hgb 7.4 L, Hct 22.8 L, MCV 92.3, MCH 30.0, MCHC 32.5, RDW Std Deviation 65.8 H, RDW Coeff of Екатерина 19.5 H, Plt Count 79 L, MPV 9.4, Immature Gran % (Auto) 0.000, Neut % (Auto) 43.9 L, Lymph % (Auto) 48.5 H, [place] % (Auto) 1.5, Eos % (Auto) 6.1 H, Baso % (Auto) 0.0, Absolute Neuts (auto) 0.3 L, Absolute Lymphs (auto) 0.32 L, Nucleated RBC % 0, Differential Comment , Diff Path Review May foll, Platelet Estimate MOD DEC, Hypochromasia 1+, Anisocytosis 1+, Sodium 143, Potassium 3.2 L, Chloride 107, Carbon Dioxide 29.0, Anion Gap 7, BUN 22 H, Creatinine 1.41 H, Estim Creat Clear Calc 69.94, Est GFR (MDRD) Af Amer 66, Est GFR (MDRD) Non-Af 54 L, BUN/Creatinine Ratio 15.6, Glucose 113 H, Calcium 8.5 Micro: Microbiology 09/09/24 23:33 Sputum, Expectorated/Coughed Gram Stain - Final 09/09/24 23:33 Sputum, Expectorated/Coughed Respiratory Culture - Preliminary Presumptive C albicans 09/06/24 21:19 Blood Culture (Wb) - Anticubital Left Blood Culture - Final No growth in 5 days. 09/06/24 20:19 Blood Culture (Wb) - Anticubital Left Blood Culture - Final No growth in 5 days. 09/06/24 21:35 Urine, Clean Catch Urine Culture - Final Culture exhibits no growth. 09/07/24 01:00 Mucosa - Nasopharyngeal Respiratory Panel (PCR) - Final 09/07/24 00:35 Urine, Clean Catch Legionella Antigen - Final 09/07/24 00:35 Urine, Clean Catch Streptococcus pneumoniae Antigen (M - Final Rhythm Strip Rhythm Strip: A-fib Rate: 78 Physical Exam Narrative General: Alert, Oriented x3, Cooperative, No apparent distress HEENT: Atraumatic, PERRLA, EOMI, Normocephalic Oral: Moist Mucosa Neck: Supple, No JVD Lungs: Diminished, Normal air movement, No rhonchi, scattered wheeze, No rales Cardiovascular: Irregular rate and rhythm, Normal S1, Normal S2, No murmurs Abdomen: Soft, Non Tender, Non-Distended, No Hepato-splenomegaly Extremities: No edema, Capillary Refill Less than 3 Seconds Skin: No rashes, No breakdown Musculoskeletal: No Tenderness to Palpation of Joints or Extremities Neurological: No focal neurological deficits, Motor Exam 5/5 strength throughout, Sensory exam intact to light touch and pain Psych/Mental Status: Normal Affect, Appropriate Assessment & Plan Assessment/Plan (1) Atrial fibrillation with RVR: (2) Acute bronchitis: QUALIFIERS: Bronchitis organism: unspecified organism Qualified Code(s): J20.9 - Acute bronchitis, unspecified PLAN: Plan 1. A-fib with RVR ? Currently on a Cardizem drip, appreciate cardiology's assistance ?We will increase his metoprolol to 50 mg p.o. twice daily as well as restart his oral Cardizem and wean off his IV Cardizem ? He is not an anticoagulation candidate secondary to his hematologic concerns including thrombocytopenia and anemia 2. RSV with possible superimposed bacterial pneumonia ? Continue with doxycycline ? Sputum cultures and blood cultures are negative but given his history of pancytopenia from CLL we will treat with antimicrobials 3. Acute on chronic pancytopenia in the setting of CLL and non-Hodgkin's lymphoma ?Discussed the case with oncology who feels that currently this is likely due to his RSV as he is afebrile and his cultures so far negative ? They recommended discontinuation of Granix as is not having any kind of effect on his numbers at the moment. DVT: SCDs Charges/Coding Visit Charges Inpatient E&M: 72154 Subs Hosp L2
--- NOTE | 2024-09-12 13:15 | ONC.CONSULT ---
Assessment & Plan Assessment/Plan (1) Pancytopenia: Status: Chronic Code(s): D61.818 - Other pancytopenia Plan: Acute on chronic pancytopenia in the setting of an acute viral illness. Would advise an evaluation 1 month or so after recovery from acute viral illness to exclude transient bone marrow suppression from the virus. Will transfuse with packed red blood cells to maintain hemoglobin at or above 8 g per DL due to acute respiratory illness. Patient was placed on growth factor support by the hospitalist service and does not need prophylactic transfusion with platelets unless less than 10K or prior to any invasive procedure. Will follow-up after discharge and if needed we can monitor with weekly CBC type and save and transfuse in the outpatient setting. (2) RSV (acute bronchiolitis due to respiratory syncytial virus): Status: Acute Code(s): J21.0 - Acute bronchiolitis due to respiratory syncytial virus Plan: Defer to primary service (3) CLL (chronic lymphocytic leukemia): Status: Chronic Code(s): C91.10 - Chronic lymphocytic leukemia of B-cell type not having achieved remission Plan: Chronic on watchful (4) Splenomegaly: Status: Chronic Code(s): R16.1 - Splenomegaly, not elsewhere classified Plan: Chronic on large (5) Non Hodgkin's lymphoma: Status: Chronic Code(s): C85.90 - Non-Hodgkin lymphoma, unspecified, unspecified site Plan: Chronic on watchful HPI Consult Data Date of Service:: 09/12/24 PCP / Referring Provider: Dr. Jorge Alvarado MD Attending: Dr. Eric Tran MD Chief Complaint Chief Complaint: Dyspnea History of Present Illness History of Present Illness: 59-year-old gentleman hospitalized September 06, 2024 with acute dyspnea diagnosed with RSV with likely superimposed bacterial infection. Patient developed acute on chronic pancytopenia with his acute presentation. 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 His care until then was at [facility] [place]. After he recovered from the infectious complications he transferred his care to [place] [facility] in October 2023 where he eventually recovered from treatment related toxicity to a baseline of mild asymptomatic pancytopenia and was placed on observation. Advanced Directives Power of Senior Hardware Design Engineer: Yes Living Will: Yes [facility] Medical History (Updated 09/12/24 @ 13:[address] Wilmer Carlos MD) Neutropenia Health care maintenance Dilated aortic root Thrombocytopenia Non Hodgkin's lymphoma BPH (benign prostatic hyperplasia) Splenomegaly CLL (chronic lymphocytic leukemia) Thrombocytopenia due to drugs Leukopenia Neutropenic fever Pancytopenia Contact with and (suspected) exposure to other viral communicable diseases Tobacco abuse counseling Hypertension Anemia Chronic kidney disease (CKD) Pancytopenia Obesity Thrombocytopenia Paroxysmal supraventricular tachycardia (11/27/19) Near syncope (09/2019) Home Medications ?Medication ?Instructions ?Recorded ?Last Taken ?Type acetaminophen 500 mg tablet 500 mg PO Q6H PRN pain 10/14/23 09/06/24 History (Tylenol Extra Strength) metoprolol tartrate 25 mg tablet 25 mg PO BID #60 tabs 07/21/24 09/06/24 Rx albuterol sulfate 90 mcg/actuation 2 puff inhalation Q4-6H PRN 09/02/24 09/06/24 Rx aerosol inhaler shortness of breath or wheezing #8.5 grams mometasone 100 mcg/actuation HFA 2 puff inhalation BID #13 grams 09/02/24 09/06/24 Rx aerosol inhaler Allergy/AdvReac Type Severity Reaction Status Date / Time ciprofloxacin (From Cipro) Allergy Intermediate Hives Verified 09/07/24 00:02 ibrutinib (From Imbruvica) Allergy dyspnea/diz Verified 09/07/24 00:02 zness rituximab Allergy Shortness Verified 09/07/24 00:02 of breath prochlorperazine (From AdvReac Unknown Dizziness Verified 09/07/24 00:02 Compazine) apixaban (From Eliquis) AdvReac Chest Verified 09/07/24 00:02 tightness Family History Father Diabetes Hypertension Mother Dementia Surgical History History of tonsillectomy History of bone marrow biopsy Social History household members: spouse Smoking Status: Former smoker Tobacco: How many years used: 15 alcohol intake: never ROS Constitutional Constitutional: Reports fatigue; Denies fever(s) ENT HEENT: Denies sore throat Cardiovascular Cardiovascular: Reports dyspnea Respiratory/Chest Respiratory/Chest: Reports cough and dyspnea; Denies hemoptysis Gastrointestinal Gastrointestinal: Denies change in bowel habits Genitourinary Genitourinary: Denies change in urinary stream Integumentary Integumentary: Denies new lesions Hematologic/Lymphatic Hematologic/Lymphatic: Denies easy bleeding, easy bruising or lymphadenopathy Physical Exam Narrative ECOG 1, on oxygen Const alert, oriented x3 and no apparent distress Vital Signs Temperature 98.1 F 09/12/24 09:00 Temperature Source Oral 09/12/24 09:00 Pulse Rate 72 09/12/24 11:36 Pulse Strength Normal (2+) 09/12/24 08:33 Respiratory Rate 16 09/12/24 11:15 Respiratory Effort Normal, Non-Labored 09/12/24 08:41 Respiratory Depth Normal 09/12/24 08:41 Respiratory Pattern Tachypnea 09/12/24 08:41 Blood Pressure 103/59 L 09/12/24 11:30 Blood Pressure Mean 73 09/12/24 11:30 Blood Pressure Source Monitor 09/12/24 11:30 Blood Pressure Position Semi-Fowlers 09/12/24 11:30 Blood Pressure Location Right Arm 09/12/24 11:30 Pulse Ox 93 09/12/24 11:30 Oxygen Delivery Method Nasal Cannula 09/12/24 11:30 Oxygen Flow Rate (L/min) 3 09/12/24 11:30 Laboratory Results - last 24 hr 09/11/24 14:05: APTT 30.4 09/12/24 06:26: WBC 0.7 L*, RBC 2.47 L, Hgb 7.4 L, Hct 22.8 L, MCV 92.3, MCH 30.0, MCHC 32.5, RDW Std Deviation 65.8 H, RDW Coeff of Екатерина 19.5 H, Plt Count 79 L, MPV 9.4, Immature Gran % (Auto) 0.000, Neut % (Auto) 43.9 L, Lymph % (Auto) 48.5 H, Payne % (Auto) 1.5, Eos % (Auto) 6.1 H, Baso % (Auto) 0.0, Absolute Neuts (auto) 0.3 L, Absolute Lymphs (auto) 0.32 L, Nucleated RBC % 0, Differential Comment , Diff Path Review November, Platelet Estimate MOD DEC, Hypochromasia 1+, Anisocytosis 1+, Sodium 143, Potassium 3.2 L, Chloride 107, Carbon Dioxide 29.0, Anion Gap 7, BUN 22 H, Creatinine 1.41 H, Estim Creat Clear Calc 69.94, Est GFR (MDRD) Af Amer 66, Est GFR (MDRD) Non-Af 54 L, BUN/Creatinine Ratio 15.6, Glucose 113 H, Calcium 8.5 Laboratory Results 09/12/24 09/06/24 08/18/24 06:26 19:10 11:25 WBC 0.7 L* 1.3 L* Hgb 7.4 L 10.6 L Plt Count 79 L 102 L 103 L Absolute Neuts (auto) 0.5 L Absolute Lymphs (auto) 0.58 L 07/23/24 04/18/24 01/18/24 09:46 11:08 11:20 WBC 2.2 L 4.3 L 6.8 Hgb 13.5 14.4 15.7 Plt Count 92 L 103 L 121 L Absolute Neuts (auto) 1.3 L 3.0 3.9 Absolute Lymphs (auto) 0.63 L 0.74 L 1.83 11/24/23 10/29/23 10/22/23 10:00 09:17 16:01 WBC 4.6 2.6 L 2.1 L Hgb 12.2 L 9.1 L 6.9 L Plt Count 178 248 157 Absolute Neuts (auto) 2.2 1.5 L 1.8 L Absolute Lymphs (auto) 1.29 0.28 L 10/08/23 03:35 WBC 0.3 L* Hgb 7.7 L Plt Count 27 L* Absolute Neuts (auto) 0.1 L Absolute Lymphs (auto) Microbiology 09/09/24 23:33 Sputum, Expectorated/Coughed Gram Stain - Final 09/09/24 23:33 Sputum, Expectorated/Coughed Respiratory Culture - Preliminary Presumptive C albicans 09/06/24 21:19 Blood Culture (Wb) - Anticubital Left Blood Culture - Final No growth in 5 days. 09/06/24 20:19 Blood Culture (Wb) - Anticubital Left Blood Culture - Final No growth in 5 days. Diagnostic Data Chest CTA 09/06/24 20:37 IMPRESSION: NEGATIVE FOR PULMONARY EMBOLISM. BRONCHIECTASIS AND TREE-IN-BUD OPACITIES PREDOMINANTLY IN THE MID AND LOWER LOBES MOST LIKELY INDICATING INFECTIOUS OR INFLAMMATORY PROCESS. GIVEN THE HISTORY OF LEUKEMIA, A NEOPLASTIC PROCESS IS NOT EXCLUDED. Reading Location: [facility] Echocardiogram 09/06/24 23:46 Interpretation Summary Mild concentric left ventricular hypertrophy. The left ventricular ejection fraction is 60 %. Stage 1 diastolic dysfunction. There is mild biatrial dilatation. Right ventricular systolic pressure estimated to be 44 mmHg. Mildly dilated aortic root. Ordering Physician: Arely López Referring Physician: JORGE ALVARADO Performed By: Celeste Gibbons, CJ
[2024-09-12 15:31] LABS: Pathologist Review Reviewed
[2024-09-12 15:32] LABS: Pathologist Review Reviewed
[2024-09-13] VITALS (11 sets, daily range): BP systolic 101–129; BP diastolic 53–84; PULSE 83–108; RESP 14–18; TEMP 36.3–37; O2SAT 92–98; BMI 32.5
[2024-09-13 06:13] LABS: Absolute Neutrophil Count 0.3 X10^3/uL (2.0-7.7); Basophil# 0.01 X10^3/uL; Basophil% 1.6 % (0-1); Eosinophil# 0.05 X10^3/uL; Eosinophils% 8.1 % (0-5); Hematocrit 23.6 % (40-54); Hemoglobin 7.6 g/dL (13.0-16.5); Lymphocyte % 48.4 % (19-41); Mean Corp Hgb Conc 32.2 g/dL (32-36); Mean Corpuscular Volume 93.3 fL (80-94); Mean Platelet Vol. 10.2 fl (6.2-12.0); Monocyte# 0.01 X10^3/uL; Monocyte% 1.6 % (0-10); NRBC Flagged by Analyzer 0 % (0-5); Neutrophil # 0.25 X10^3/uL (2.7-7.7); Neutrophil % 40.3 % (47-70); POSITIVE COUNT YES; POSITIVE DIFFERENTIAL YES; POSITIVE MORPHOLOGY YES; Platelet Count 68 K/mm3 (150-450); RBC Distribution Width CV 18.8 % (11.6-14.6); RBC Distribution Width SD 63.4 fl (35.1-43.9); Red Blood Count 2.53 M/mm3 (4.6-6.2)
[2024-09-13 06:41] LABS: Differential Indicated SCAN CRITERIA MET; White Blood Count 0.6 K/mm3 (4.4-11.0)
[2024-09-13 06:54] LABS: Anion Gap 6 (5-15); BUN 21 mg/dL (7-18); BUN/Creat Ratio 16.5 RATIO (10-20); Calcium,Total 8.9 mg/dL (8.5-10.1); Chloride 109 mmol/L (98-107); Creatinine, Serum 1.27 mg/dL (0.70-1.30); EST Glomerular Filtration Rate 61 mL/min (>60); Est Glom Filt Rate - Afr Amer 74 mL/min (>60); Estimated Creatinine Clearance 77.86 ml/min; Glucose 111 mg/dL (74-106); Potassium 3.7 mmol/L (3.5-5.1); Sodium Level 144 mmol/L (136-145)
[2024-09-13] MEDS: Doxycycline 100 MG CAPSULE PO ×2 (07:56→21:25)
[2024-09-13] MEDS: Metoprolol Tartrate 50 MG Tablet PO ×2 (07:56→21:25)
[2024-09-13] MEDS: dilTIAZem CD 180 MG Capsule PO (07:56)
[2024-09-13 08:04] LABS: Platelet Estimate MOD DEC (ADEQ)
[2024-09-13 11:51] LABS: Pathologist Review Reviewed
--- NOTE | 2024-09-13 13:16 | PCM.PN.HOSP ---
Subjective Subjective Doing well, no issues overnight. Hemoglobin still little bit low so we will transfuse Objective Data Objective Data Vital Signs: Vital Signs Temp Pulse Resp BP Pulse Ox O2 Del Method O2 Flow Rate 97.4 F L 89 14 112/84 H 95 Nasal Cannula 2 09/13/24 11:00 09/13/24 11:00 09/13/24 11:00 09/13/24 11:00 09/13/24 11:00 09/13/24 11:00 09/13/24 11:00 Oxygen Flow Rate (L/min) 2 Oxygen Delivery Method Nasal Cannula Weight: 240 lb 1.334 oz Body Mass Index (BMI) 32.5 Intake & Output: Intake and Output for Last 24 Hours 09/12/24 09/13/24 09/14/24 03:59 03:59 03:59 Intake Total 1107.75 / 1122.75 358.16 / 358.16 120 / 120 Output Total 300 / 300 575 / 575 300 / 300 Balance 807.75 / 822.75 -216.84 / -216.84 -180 / -180 Lab / Micro Data 09/13/24 05:46 09/13/24 05:46 Labs: Laboratory Results - last 24 hr 09/11/24 04:31: Diff Path Review Reviewed 09/12/24 06:26: Diff Path Review Reviewed 09/13/24 05:46: WBC 0.6 L*, RBC 2.53 L, Hgb 7.6 L, Hct 23.6 L, MCV 93.3, MCH 30.0, MCHC 32.2, RDW Std Deviation 63.4 H, RDW Coeff of Екатерина 18.8 H, Plt Count 68 L, MPV 10.2, Immature Gran % (Auto) 0.000, Neut % (Auto) 40.3 L, Lymph % (Auto) 48.4 H, [place] % (Auto) 1.6, Eos % (Auto) 8.1 H, Baso % (Auto) 1.6 H, Absolute Neuts (auto) 0.3 L, Absolute Lymphs (auto) 0.30 L, Nucleated RBC % 0, Differential Comment COMMENT, Diff Path Review Reviewed, Platelet Estimate MOD DEC, Sodium 144, Potassium 3.7, Chloride 109 H, Carbon Dioxide 29.0, Anion Gap 6, BUN 21 H, Creatinine 1.27, Estim Creat Clear Calc 77.86, Est GFR (MDRD) Af Amer 74, Est GFR (MDRD) Non-Af 61, BUN/Creatinine Ratio 16.5, Glucose 111 H, Calcium 8.9 Micro: Microbiology 09/09/24 23:33 Sputum, Expectorated/Coughed Gram Stain - Final 09/09/24 23:33 Sputum, Expectorated/Coughed Respiratory Culture - Final Presumptive C albicans 09/06/24 21:19 Blood Culture (Wb) - Anticubital Left Blood Culture - Final No growth in 5 days. 09/06/24 20:19 Blood Culture (Wb) - Anticubital Left Blood Culture - Final No growth in 5 days. 09/06/24 21:35 Urine, Clean Catch Urine Culture - Final Culture exhibits no growth. 09/07/24 01:00 Mucosa - Nasopharyngeal Respiratory Panel (PCR) - Final 09/07/24 00:35 Urine, Clean Catch Legionella Antigen - Final 09/07/24 00:35 Urine, Clean Catch Streptococcus pneumoniae Antigen (M - Final Rhythm Strip Rhythm Strip: A-fib Rate: 78 Physical Exam Narrative General: Alert, Oriented x3, Cooperative, No apparent distress HEENT: Atraumatic, PERRLA, EOMI, Normocephalic Oral: Moist Mucosa Neck: Supple, No JVD Lungs: Diminished, Normal air movement, No rhonchi, scattered wheeze, No rales Cardiovascular: Irregular rate and rhythm, Normal S1, Normal S2, No murmurs Abdomen: Soft, Non Tender, Non-Distended, No Hepato-splenomegaly Extremities: No edema, Capillary Refill Less than 3 Seconds Skin: No rashes, No breakdown Musculoskeletal: No Tenderness to Palpation of Joints or Extremities Neurological: No focal neurological deficits, Motor Exam 5/5 strength throughout, Sensory exam intact to light touch and pain Psych/Mental Status: Normal Affect, Appropriate Assessment & Plan Assessment/Plan (1) Atrial fibrillation with RVR: (2) Acute bronchitis: QUALIFIERS: Bronchitis organism: unspecified organism Qualified Code(s): J20.9 - Acute bronchitis, unspecified PLAN: Plan 1. A-fib with RVR ?Appreciate cardiology's assistance currently off the Cardizem drip, rate is controlled except for when he is up and ambulating ?We will increase his metoprolol to 50 mg p.o. twice daily as well as restart his oral Cardizem ? He is not an anticoagulation candidate secondary to his hematologic concerns including thrombocytopenia and anemia 2. RSV with possible superimposed bacterial pneumonia ? Continue with doxycycline ? Sputum cultures and blood cultures are negative but given his history of pancytopenia from CLL we will treat with antimicrobials 3. Acute on chronic pancytopenia in the setting of CLL and non-Hodgkin's lymphoma ?Discussed the case with oncology who feels that currently this is likely due to his RSV as he is afebrile and his cultures so far negative ? They recommended discontinuation of Granix as is not having any kind of effect on his numbers at the moment. ? Given his CLL his hemoglobin 7.6 today, will transfuse 1 unit this may also help with his A-fib DVT: SCDs Charges/Coding Visit Charges Inpatient E&M: 55942 Subs Hosp L2
[2024-09-14 03:00] VITALS: BP 110/80; PULSE 98; RESP 16; TEMP 36.2; O2SAT 96; BMI 31.8
[2024-09-14 05:52] LABS: Absolute Lymphocyte Count 0.46 X10^3/uL (0.83-4.51); Absolute Neutrophil Count 0.2 X10^3/uL (2.0-7.7); Basophil# 0.01 X10^3/uL; Basophil% 1.3 % (0-1); Eosinophil# 0.05 X10^3/uL; Eosinophils% 6.6 % (0-5); Hematocrit 25.1 % (40-54); Hemoglobin 8.4 g/dL (13.0-16.5); Lymphocyte # 0.46 X10^3/ul (0.83-4.51); Lymphocyte % 60.5 % (19-41); Mean Corp Hgb Conc 33.5 g/dL (32-36); Mean Corpuscular Hgb 30.7 pg (27.0-32.0); Mean Corpuscular Volume 91.6 fL (80-94); Mean Platelet Vol. 9.6 fl (6.2-12.0); Monocyte# 0.03 X10^3/uL; Monocyte% 3.9 % (0-10); NRBC Flagged by Analyzer 0 % (0-5); Neutrophil % 26.4 % (47-70); POSITIVE COUNT YES; POSITIVE DIFFERENTIAL YES; POSITIVE MORPHOLOGY YES; Platelet Count 67 K/mm3 (150-450); RBC Distribution Width CV 18.3 % (11.6-14.6); RBC Distribution Width SD 60.2 fl (35.1-43.9); Red Blood Count 2.74 M/mm3 (4.6-6.2)
[2024-09-14 06:04] LABS: Differential Indicated SCAN CRITERIA MET; White Blood Count 0.8 K/mm3 (4.4-11.0)
[2024-09-14 07:55] LABS: Platelet Estimate MKD DEC (ADEQ)
[2024-09-14 09:00] VITALS: BP 109/57; PULSE 99; RESP 18; TEMP 36.5; O2SAT 92
[2024-09-14 09:03] VITALS: PULSE 99
[2024-09-14] MEDS: dilTIAZem CD 180 MG Capsule PO (09:03)
[2024-09-14] MEDS: Metoprolol Tartrate 50 MG Tablet PO (09:03)
[2024-09-14] MEDS: Doxycycline 100 MG CAPSULE PO (09:03)
[2024-09-14 10:33] VITALS: O2SAT 90; O2SAT 96
--- NOTE | 2024-09-14 11:24 | DCINST_ITS ---
Discharge Instructions Diet Discharge Diet: No restrictions DC O2, CPAP, BIPAP needs Home O2 Discharge instructions: No Dressing / Incision Discharge Activity: Return to Normal Activity Dressing / Incision Call your doctor if you observe: Fever of 101 or Higher, Shortness of breath, Dizziness, Fainting spells, Swelling in the ankles, Chest pain and Increased palpitations (irregular heartbeat) Follow Up Care Test Results: Test results from this visit will be discussed in further detail at your follow- up appointment, if applicable. Discharge Plan Admission Admit Date/Time: 09/06/24 22:51 Attending Provider: Eric Tran Primary Care Provider: Jaquelin Dexter Consulting Providers: Arely López; Armando Vanessa; Morgan Durham; Abel Summers; Db Walden; Wilmer Carlos; Brice Bustillo; Jose Benjamin; Brian Zimmerman; Carlos Jimenez; Annabelle Frazier NP; Chiara Burger Instructions Patient Instructions: AFib Dc Discharge Orders/Prescriptions Prescriptions: New diltiazem HCl 180 mg Capsule,Extended Release 24hr 180 mg PO DAILY 30 Days Qty: 30 0RF doxycycline monohydrate 100 mg Capsule 100 mg PO BID 2 Days Qty: 4 0RF metoprolol tartrate 50 mg Tablet 50 mg PO BID 30 Days Qty: 60 0RF Continued acetaminophen [Tylenol Extra Strength] 500 mg tablet 500 mg PO Q6H PRN (Reason: pain ) mometasone 100 mcg/actuation HFA aerosol inhaler 2 puff inhalation BID Qty: 13 0RF Rx Instructions: RINSE MOUTH AFTER EACH USE albuterol sulfate 90 mcg/actuation HFA aerosol inhaler 2 puff inhalation Q4-6H PRN (Reason: shortness of breath or wheezing) Qty: 8.5 0RF Discontinued metoprolol tartrate 25 mg tablet 25 mg PO BID Qty: 60 11RF Referrals / Follow Up: Jaquelin Dexter MD [Primary Care Provider] - In 1 Week Dalton Gannon MD [Med Staff - Active Staff] - Within 1 Month Disposition Disposition (needs filled in before D/C Order can be placed): Home, Self Care
--- NOTE | 2024-09-14 12:09 | CASEMGMT ---
Patient has order for discharge. RN CM in to discuss needs at discharge, patient independent in room. Patient denies needs or help at discharge. Patient had no further questions or concerns.
--- NOTE | 2024-09-14 12:39 | PHA.DC_ITS ---
Pharmacy [facility] has performed discharge medication reconciliation and counseling for this patient. Patient counseled via telephone. The patient's discharge medication list was reviewed for discrepancies and discrepancies were resolved. 1. DILTIAZEM CD 180MG PO DAILY 2. DOXYCYCLINE 100MG PO BID X 2 DAYS 3. METOPROLOL INCREASED TO 50MG The patient was counseled on the following discharge medications and changes in medications for homegoing were reviewed. The Reason for Use, instructions for use, and potential side effects were reviewed for all new medications. The patient's questions regarding all of their medications were answered. The patient was able to verbally demonstrate an understanding of their discharge medications.
[2024-09-14 13:35] LABS: Pathologist Review Reviewed
--- NOTE | 2024-09-14 14:56 | DS.PCM_ITS ---
Providers Date of Admission: 09/06/24 Primary Care Physician: Dr. Jaquelin Dexter MD Consultations 09/07/24 14:01 Consult: Cardiology Routine Consulting Provider: Armando Vanessa Reason for Consult: afib with RVR EMERGENT Consult: No Notified: Yes Date Notified: 09/07/24 Time Notified: 14:01 Method of Notification: Text 09/11/24 14:30 Consult: Oncology/Hematology Routine Consulting Provider: [facility] ([facility]) Reason for Consult: Leukemia EMERGENT Consult: No Notified: Yes Date Notified: 09/11/24 Time Notified: 14:37 Method of Notification: Text Reason For Visit: PAF RVR RSV BRONCHIOLITIS Diagnosis Discharge Diagnosis (1) Atrial fibrillation with RVR: Status: Acute Code(s): I48.91 - Unspecified atrial fibrillation (2) Acute bronchitis: Status: Acute Code(s): J20.9 - Acute bronchitis, unspecified Qualifiers: Bronchitis organism: unspecified organism Qualified Code(s): J20.9 - Acute bronchitis, unspecified Medications at Discharge Home Medications acetaminophen 500 mg tablet (Tylenol Extra Strength) 500 mg PO Q6H PRN pain 10/14/23 albuterol sulfate 90 mcg/actuation aerosol inhaler 2 puff inhalation Q4-6H PRN shortness of breath or wheezing #8.5 grams 09/02/24 mometasone 100 mcg/actuation HFA aerosol inhaler 2 puff inhalation BID #13 grams 09/02/24 diltiazem HCl 180 mg capsule,extended release 24 hr 180 mg PO DAILY 30 days #30 caps 09/14/24 doxycycline monohydrate 100 mg capsule 100 mg PO BID 2 days #4 caps 09/14/24 metoprolol tartrate 50 mg tablet 50 mg PO BID 30 days #60 tabs 09/14/24 Hospital Course Operations None Procedures 2-D Echocardiogram Summary of Care Provided Minutes Spent on Discharge: 36 Hospital Course: Per HPI: The patient is a 59 y/o M w/ PMHx: Obesity, CLL w/ chronic pancytopenia, PAF unable to tolerate anticoagulant therapy including most recent NOAC trial secondary to worsening anemia/thrombocytopenia, CKD stage II per GFR trending who presents to the [facility] ED on 09/06/2024 with persistent dyspnea diagnosed recently previous with RSV with persistent worsening dyspnea more notable with any exertional attempts with increasing weakness and malaise noted to have been seeing his physician on day of presentation with lightheadedness and dizziness with no loss of consciousness but patient did fall to his knees with no injury at that time but at the time had noted that his heart has been racing and is not subsided prompting eventual ED evaluation to be cautious. He denies any recent ongoing chemotherapy. He notes that when his symptoms started he had onset of rhinorrhea, congestion, headache with neck discomfort, mild dry cough with mild dyspnea sensation in addition to general body aches and fatigue with subjective fever and chills however this was not severe but he reported that this worsened over the last 2 days. He has had a decreased appetite. Workup in the ED included T99.3, heart rate 155, BP 98/79, respiratory rate 30, 99% on room air with most recent repeat vitals T99.1 Orally, heart rate 135, BP 118/90, respiratory rate 19, 96% on room air, CBC with WBC 0.8, hemoglobin 8.8, MCV 91.2, platelet 102 with neutropenia and lymphopenia, coags with PT 16.3 otherwise not marked appearing, CMP with BUN/creatinine 35/1.27, GFR 61, glucose 140, lactic acid 1.1, hepatic profile with T. bili 1.10 otherwise unremarkable, troponin 8, BNP pending upon request evaluation of patient, urinalysis with specific gravity 1.015, protein 30, ketone 5, occult blood 10, nitrate negative, leukocyte esterase negative with urine RBCs 5-10 but no marked urine WBCs with 1+ urine bacteria, chest CTA with no evidence of any pulmonary embolism with bronchiectasis and tree-in-bud opacities predominantly in the mid and lower lobes most likely indicating infectious or inflammatory process although given history of leukemia neoplastic process cannot be excluded, EKG with atrial fibrillation with RVR with no acute evidence of ischemia, urine culture pending per ED, blood culture x 2 pending per ED. From review of records patient did have recent 09/01/2024 rapid SARS COVID/influenza/RSV PCR that had positive RSV at that time. In the ED patient administered IV Zosyn, vancomycin, diltiazem 20 mg IV x 2 in addition to Tylenol 650 mg p.o. x 1. Hospital Course: 1. A-fib with RVR?59-year-old male with a history of CLL and non-Hodgkin's lymphoma with acute on chronic pancytopenia presented to the hospital with lightheadedness and dizziness. He was found to be in A-fib with RVR. He was started on his home medications with Cardizem drip. He did become better rate controlled and cardiology was consulted recommending increasing his metoprolol to 50 mg p.o. twice daily as well as starting him on oral Cardizem at 180 mg daily. When at rest his heart rate is decently well-controlled in the 80s to 90s though when he is up and mobile his heart rate will spike, cardiology was okay with this and felt that if they tried to push his rate control medications too high that if and when he converted to normal sinus rhythm he could become severely bradycardic. He was transfused a unit of blood secondary to his chronic pancytopenia however this did not help his A-fib. He has a [id number] score of 0 and he was not able to tolerate anticoagulation in the past anyways. Will continue with metoprolol at 50 mg p.o. twice daily as well as Cardizem 180 mg daily. I will have him follow-up with cardiology as well as his primary care doctor as an outpatient. I discussed with him the plan for discharge and he expressed understanding of the risks and benefits of going home today and he would like to go home. 2. RSV with possible superimposed bacterial pneumonia?he did test positive for RSV which could have been the instigator to his A-fib with RVR. He was requiring some oxygen during his hospitalization though he did not require any with ambulation today on discharge. He had been placed on antibiotics and will complete 2 more days of doxycycline on discharge. Sputum cultures and blood cultures are negative and he remains afebrile. I do recommend he follow-up with his interactive media marketing specialist/oncologist as an outpatient Physical Exam Narrative General: Alert, Oriented x3, Cooperative, No apparent distress HEENT: Atraumatic, PERRLA, EOMI, Normocephalic Oral: Moist Mucosa Neck: Supple, No JVD Lungs: Diminished, Normal air movement, No rhonchi, scattered wheeze, No rales Cardiovascular: Irregular rate and rhythm, Normal S1, Normal S2, No murmurs Abdomen: Soft, Non Tender, Non-Distended, No Hepato-splenomegaly Extremities: No edema, Capillary Refill Less than 3 Seconds Skin: No rashes, No breakdown Musculoskeletal: No Tenderness to Palpation of Joints or Extremities Neurological: No focal neurological deficits, Motor Exam 5/5 strength throughout, Sensory exam intact to light touch and pain Psych/Mental Status: Normal Affect, Appropriate Weight / BMI Weight Weight: 234 lb 12.677 oz Body Mass Index (BMI) 31.8 ABG / Lab / Microbiology Data 09/14/24 05:36 09/13/24 05:46 Laboratory: Laboratory Results - last 24 hr 09/12/24 06:26: Blood Type O POSITIVE, Antibody Screen NEGATIVE, Crossmatch See Detail 09/14/24 05:36: WBC 0.8 L*, RBC 2.74 L, Hgb 8.4 L, Hct 25.1 L, MCV 91.6, MCH 30.7, MCHC 33.5, RDW Std Deviation 60.2 H, RDW Coeff of Екатерина 18.3 H, Plt Count 67 L, MPV 9.6, Immature Gran % (Auto) 1.300 H, Neut % (Auto) 26.4 L, Lymph % (Auto) 60.5 H, Mcintosh % (Auto) 3.9, Eos % (Auto) 6.6 H, Baso % (Auto) 1.3 H, Absolute Neuts (auto) 0.2 L, Absolute Lymphs (auto) 0.46 L, Nucleated RBC % 0, Diff Path Review Reviewed, Platelet Estimate MKD DEC Microbiology: Microbiology 09/09/24 23:33 Sputum, Expectorated/Coughed Gram Stain - Final 09/09/24 23:33 Sputum, Expectorated/Coughed Respiratory Culture - Final Presumptive C albicans 09/06/24 21:19 Blood Culture (Wb) - Anticubital Left Blood Culture - Final No growth in 5 days. 09/06/24 20:19 Blood Culture (Wb) - Anticubital Left Blood Culture - Final No growth in 5 days. 09/06/24 21:35 Urine, Clean Catch Urine Culture - Final Culture exhibits no growth. 09/07/24 01:00 Mucosa - Nasopharyngeal Respiratory Panel (PCR) - Final 09/07/24 00:35 Urine, Clean Catch Legionella Antigen - Final 09/07/24 00:35 Urine, Clean Catch Streptococcus pneumoniae Antigen (M - Final D/C Instructions Discharge Diet: No restrictions Call your doctor if you observe: Fever of 101 or Higher, Shortness of breath, Dizziness, Fainting spells, Swelling in the ankles, Chest pain and Increased palpitations (irregular heartbeat) DC O2, CPAP, BIPAP Needs Home O2 Discharge instructions: No Meaningful Use Info Meaningful Use Meaningful Use Diagnoses (Choose all that apply): None applicable Ischemic Stroke Statin Dosing Therapy Reference: STATIN DOSE THERAPY REFERENCE: * Patients > 75 years receive moderate or high dose statin therapy. * Patients 75 years or YOUNGER should receive HIGH intensity statin dose unless contraindicated. You will be required to document reason for non-treatment if statin daily dose does not meet guidelines. HIGH DOSE STATIN THERAPY DAILY Atorvastatin > than or = to 40 mg Rosuvastatin > than or = to 20 mg Amlodipine + Atorvastatin > than or = to 2.5/40 mg Ezetimibe + Simvastatin 10/80 mg Simvastatin 80mg Discharge Plan Admission Admit Date/Time: 09/06/24 22:51 Attending Provider: Eric Tran Primary Care Provider: Jaquelin Dexter Consulting Providers: Arely López; Armando Vanessa; Morgan Durham; Abel Summers; Db Walden; Wilmer Carlos; Brice Bustillo; Jose Bejnamin; Brian Zimmerman; Carlos Jimenez; Annabelle Frazier NP; Chiara Burger Instructions Patient Instructions: AFib Dc Discharge Orders/Prescriptions Prescriptions: New diltiazem HCl 180 mg Capsule,Extended Release 24hr 180 mg PO DAILY 30 Days Qty: 30 0RF doxycycline monohydrate 100 mg Capsule 100 mg PO BID 2 Days Qty: 4 0RF metoprolol tartrate 50 mg Tablet 50 mg PO BID 30 Days Qty: 60 0RF Continued acetaminophen [Tylenol Extra Strength] 500 mg tablet 500 mg PO Q6H PRN (Reason: pain ) mometasone 100 mcg/actuation HFA aerosol inhaler 2 puff inhalation BID Qty: 13 0RF Rx Instructions: RINSE MOUTH AFTER EACH USE albuterol sulfate 90 mcg/actuation HFA aerosol inhaler 2 puff inhalation Q4-6H PRN (Reason: shortness of breath or wheezing) Qty: 8.5 0RF Discontinued metoprolol tartrate 25 mg tablet 25 mg PO BID Qty: 60 11RF Referrals / Follow Up: Jaquelin Dexter MD [Primary Care Provider] - 09/21/24 7:30 am Dalton Gannon MD [Med Staff - Active Staff] - 09/22/24 10:00 am Disposition Disposition (needs filled in before D/C Order can be placed): Home, Self Care Charges/Coding Visit Charges Inpatient E&M: 38155 Disch Hosp >30min
[2024-09-15 12:23] LABS: BUN 26 mg/dL (4-19); BUN/Creat Ratio 20.2 RATIO (10-20); Creatinine, Serum 1.3 mg/dL (0.8-1.3); EST Glomerular Filtration Rate 63 (>60); Estimated Creatinine Clearance 75.25 ml/min; Glucose 109 mg/dL (70-99)
[2024-09-15 13:37] LABS: Anion Gap 11 (5-15); Carbon Dioxide 27.4 mmol/L (21.0-32.0); Chloride 106 mmol/L (98-107); Potassium 4.2 mmol/L (3.5-5.1); Sodium Level 144 mmol/L (136-145)
== END 2024-09-14 14:31 | disposition home or self-care (01) | DRG 308 ==
LOC: ED 20:08 → PCU 23:24
PROVIDERS: Internal Medicine Interventional Cardiology; Student in an Organized Health Care Education/Training Program; Admitting Provider Family Medicine; Emergency Provider Emergency Medicine; PCP Internal Medicine; Visit Provider Family Medicine
DX: I48.91 Unspecified atrial fibrillation (principal); J15.9 Unspecified bacterial pneumonia; D61.818 Other pancytopenia; J21.0 Acute bronchiolitis due to respiratory syncytial virus; J47.0 Bronchiectasis with acute lower respiratory infection; C85.90 Non-Hodgkin lymphoma, unspecified, unspecified site; I50.30 Unspecified diastolic (congestive) heart failure; C91.10 Chronic lymphocytic leukemia of B-cell type not having achieved remission; I13.0 Hypertensive heart and chronic kidney disease with heart failure and stage 1 through stage 4 chronic kidney disease, or unspecified chronic kidney disease; D84.9 Immunodeficiency, unspecified; D70.9 Neutropenia, unspecified; E66.9 Obesity, unspecified; I48.0 Paroxysmal atrial fibrillation; N18.2 Chronic kidney disease, stage 2 (mild); J20.9 Acute bronchitis, unspecified; R16.1 Splenomegaly, not elsewhere classified; R50.81 Fever presenting with conditions classified elsewhere; Z87.891 Personal history of nicotine dependence; Z92.21 Personal history of antineoplastic chemotherapy; Z79.01 Long term (current) use of anticoagulants; Z79.2 Long term (current) use of antibiotics; Z68.31 Body mass index [BMI] 31.0-31.9, adult; N40.0 Benign prostatic hyperplasia without lower urinary tract symptoms; Z88.1 Allergy status to other antibiotic agents; Z88.8 Allergy status to other drugs, medicaments and biological substances
CPT/HCPCS: 36415; 71275; 80048; 80053; 80202; 81001; 83605; 83735; 83880; 84100; 84145; 84443; 84484; 85025; 85610; 85730; 86644; 86850; 86900; 86901; 87040; 87070; 87086; 87205; 87449; 87633; 93005; 93306; 94640; 94668; 94760; 97802; 99285; P9016; Q9967; A4216; J1447; J1940

== ENCOUNTER → 2024-09-06 | Outpatient (CLI) | payer OTHER, SELFPAY ==
[2024-09-06 16:09] LABS: Absolute Lymphocyte Count 0.49 X10^3/uL (0.83-4.51); Absolute Neutrophil Count 0.4 X10^3/uL (2.0-7.7); Basophil# 0.01 X10^3/uL; Eosinophil# 0.03 X10^3/uL; Eosinophils% 3.1 % (0-5); Hematocrit 27.4 % (40-54); Hemoglobin 8.9 g/dL (13.0-16.5); Lymphocyte # 0.49 X10^3/ul (0.83-4.51); Mean Corpuscular Hgb 30.5 pg (27.0-32.0); Mean Corpuscular Volume 93.8 fL (80-94); Mean Platelet Vol. 9.9 fl (6.2-12.0); Monocyte# 0.02 X10^3/uL; Monocyte% 2.1 % (0-10); NRBC Flagged by Analyzer 0 % (0-5); Neutrophil # 0.41 X10^3/uL (2.7-7.7); Neutrophil % 42.8 % (47-70); POSITIVE COUNT YES; POSITIVE DIFFERENTIAL YES; POSITIVE MORPHOLOGY YES; Platelet Count 110 K/mm3 (150-450); RBC Distribution Width CV 22.2 % (11.6-14.6); Red Blood Count 2.92 M/mm3 (4.6-6.2)
[2024-09-06 16:27] LABS: Mean Corp Hgb Conc 32.5 g/dL (32-36)
[2024-09-06 17:09] LABS: Anisocytosis 2+; Atypical Lymphocyte 1+ %; Hypochromasia 1+; Polychromasia 1+
[2024-09-06 17:11] LABS: Toxic Granulation 2+
[2024-09-08 08:43] LABS: Pathologist Review Reviewed
== END | disposition home or self-care (01) ==
LOC: BIMLAB 12:16
PROVIDERS: PCP Internal Medicine; Referring Provider Physician Assistant; Visit Provider Physician Assistant
DX: D61.818 Other pancytopenia (principal)
CPT/HCPCS: 36415; 85025

== ENCOUNTER → 2024-09-22 | Outpatient (CLI) | payer OTHER, SELFPAY ==
--- NOTE | 2024-09-22 11:05 | RAD_ITS ---
PROCEDURE: CHEST PA AND LATERAL REASON FOR EXAM: Cough. TECHNIQUE: Frontal and lateral views of the chest. COMPARISON: Chest x-ray of 09/01/2024. FINDINGS: The cardiothymic contour is normal. The lungs appear clear of acute disease, and unchanged No pleural effusion or pneumothorax is noted. The bones are unremarkable. RAD/Chest PA and Lateral IMPRESSION: No evidence of acute cardiopulmonary disease. Reading Location: [id number]
== END | disposition home or self-care (01) ==
LOC: RAD 11:03
PROVIDERS: PCP Internal Medicine; Referring Provider Physician Assistant; Visit Provider Physician Assistant
DX: J21.0 Acute bronchiolitis due to respiratory syncytial virus (principal)
CPT/HCPCS: 71046

== ENCOUNTER → 2024-10-07 | Outpatient (CLI) | payer OTHER, SELFPAY ==
[2024-10-07] VITALS (11 sets, daily range): BP systolic 101–119; BP diastolic 53–85; PULSE 64–73; RESP 12–16; TEMP 36.6; O2SAT 95–99; BMI 29.1
[2024-10-07 09:18] LABS: Hematocrit 21.9 % (40-54); Hemoglobin 7.2 g/dL (13.0-16.5); Mean Corp Hgb Conc 32.9 g/dL (32-36); Mean Corpuscular Volume 94.4 fL (80-94); Mean Platelet Vol. 9.4 fl (6.2-12.0); POSITIVE COUNT YES; POSITIVE DIFFERENTIAL YES; POSITIVE MORPHOLOGY YES; Platelet Count 105 K/mm3 (150-450); RBC Distribution Width CV 24.3 % (11.6-14.6); RBC Distribution Width SD 79.3 fl (35.1-43.9); Red Blood Count 2.32 M/mm3 (4.6-6.2)
[2024-10-07 09:22] LABS: White Blood Count 1.1 K/mm3 (4.4-11.0)
[2024-10-07 10:03] LABS: Basophil 2 % (0-1); Eosinophil 3 % (0-5); Lymphocyte 34 % (19-41); Metamyelocyte 3 % (0-1); Monocyte 1 % (0-10); Neutrophil-Band 2 % (0-5); Neutrophil-Segmented 55 % (47-70); Total Cells Counted 100 (MANUAL DIFF)
[2024-10-07 10:06] LABS: Anisocytosis 2+; Ovalocyte 1+; Polychromasia 1+
[2024-10-07 10:07] LABS: Platelet Estimate SLT DEC (ADEQ); Reactive Lymphocyte 1+
[2024-10-07 10:08] LABS: Differential Indicated MANUAL DIFF
[2024-10-07 10:09] LABS: Absolute Neutrophil Count 0.6 X10^3/uL (2.0-7.7)
[2024-10-07 10:10] LABS: Absolute Lymphocyte Count 0.38 X10^3/uL (0.83-4.51); Pathologist Review May foll
[2024-10-07] MEDS: Midazolam 2 MG/2 ML Syringe IV ×2 (10:24→10:33)
[2024-10-07] MEDS: fentaNYL 100 MCG/2 ML Ampul IV (10:25)
--- NOTE | 2024-10-07 10:25 | CT_ITS ---
PROCEDURE: BIOPSY/INJ OR NEEDLE PLACEMENT. Bone marrow biopsy. REASON FOR EXAM: NHL/CLL/PANCYTOPENIA TECHNIQUE: The procedure as well as the benefits and possible complications including infection and bleeding were explained to the patient. Informed consent was obtained. The patient was in the prone position. The overlying skin was prepped and draped in the usual sterile fashion. Conscious sedation was performed. The patient received 2 mg of Versed and 50 mcg of fentanyl intravenously. The patient was independently monitored by the department nurse. Local anesthetic was applied. Utilizing an 11 gauge bone marrow biopsy kit, bone marrow biopsy and aspirations were obtained of the posterior left iliac bone. The patient tolerated the procedure well. COMPARISON: None. FINDINGS: Successful bone marrow biopsy and aspirate of the posterior aspect of the left iliac bone. CT/Biopsy/Inj or Needle Placement IMPRESSION: Successful bone marrow biopsy and aspiration of the posterior aspect of the lef t iliac bone. The patient tolerated the procedure well. No immediate complication is seen. One or more dose reduction techniques were used (e.g., Automated exposure contr ol, adjustment of the mA and/or kV according to patient size, use of iterative reconstruction technique). Reading Location: [place] [id number]
[2024-10-07] MEDS: Lidocaine 2% (20 ml mdv) 20 ML Vial INFILT (10:39)
[2024-10-07 16:52] LABS: Xtra CC BBK (Onc ONLY) EXTRA TUBE
== END | disposition home or self-care (01) ==
PROVIDERS: PCP Internal Medicine; Referring Provider Internal Medicine Hematology & Oncology; Visit Provider Internal Medicine Hematology & Oncology
DX: C91.10 Chronic lymphocytic leukemia of B-cell type not having achieved remission (principal); D61.818 Other pancytopenia; C85.90 Non-Hodgkin lymphoma, unspecified, unspecified site
CPT/HCPCS: 38222; 36415; 77012; 85025; 99156; A4216

== ENCOUNTER 2024-11-25 11:43 | Observation (INO) | payer OTHER, SELFPAY ==
--- NOTE | 2024-11-18 10:50 | PAT.ANE_ITS ---
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 When Was Last Pacemaker Check QUESTION #4 FULL TEXT: You/Your Family Experience fever (hyperthermia) with Anesthesia Last Oral Intake Last Oral intake: Last Oral Intake NPO since Meds taken in AM with sips of water? Meds patient instructed to take am of surgery PONV PONV - modern and contemporary art curator: PONV - modern and contemporary art curator Female No 11/18/24 09:35 HX of Motion Sickness No 11/18/24 09:35 HX of N/V After Surgery No 11/18/24 09:35 Non-Smoker Yes 11/18/24 09:35 Duration of Surgery greater No 11/18/24 09:35 than 60 minutes Number of Risk Factors 1 11/18/24 09:35 PONV Score Low Risk 11/18/24 09:35 Height & Weight Height & Weight: Anesthesia: Height & Weight Height 6 ft 2 in 11/15/24 14:03 Respiratory Assessment Respiratory Assessment - modern and contemporary art curator: Respiratory Tract Infection Hx - modern and contemporary art curator Hx Respiratory Tract Infection No 11/18/24 09:35 STOP Sleep Apnea STOP Sleep Apnea - modern and contemporary art curator: STOP Sleep Apnea - modern and contemporary art curator Hx Hypertension Yes 11/18/24 09:35 Hx Sleep Apnea No 11/18/24 09:35 CPAP BIPAP Do you snore loudly (louder No 11/18/24 09:35 than talking or can be heard Do you often feel tired/ No 11/18/24 09:35 fatigued/ sleepy during daytime? Has anyone observed you stop No 11/18/24 09:35 breathing during sleep? STOP Results Negative 11/18/24 09:35 QUESTION #5 FULL TEXT : Do you snore loudly (louder than talking or can be heard through closed doors)? Tobacco Use History Tobacco Use History - modern and contemporary art curator: Tobacco Use History - modern and contemporary art curator Tobacco Use Smoking Status Former smoker 11/18/24 09:35 Hx Tobacco Use No 11/18/24 09:35 Years Smoking Packs Smoked per Day Smoking Cessation Date was No - quit smoking greater 11/18/24 09:35 within the last 15 years than 15 years ago Hx Smoking Cessation Date 04/19/90 11/18/24 09:35 Hx Smoking Cessation Counseling Hematologic Medial History Hematologic Hx - modern and contemporary art curator: Hematologic Medical Hx - narcotics and/or vice detective Hx of Blood Transfusion Yes 11/18/24 09:35 Hx of Transfusion in last 3 Yes 11/18/24 09:35 Months Date of Last Transfusion (if AUG 2024 11/18/24 09:35 within last 3 months) Ever experience any problems No 11/18/24 09:35 with transfusion(s)? Specify any problems Hx of Preganancy in last 3 N/A 11/18/24 09:35 Months Nurse Filling Out Transfusion [facility] 11/18/24 09:35 & Questions: Date: 11/18/24 11/18/24 09:35 Time: 09:37 11/18/24 09:35 Patient unable to answer at this time (ie. confused, unrespo /Reproduction History /Reproductive History - modern and contemporary art curator: /Reproductive Hx- modern and contemporary art curator Hx Now Gestational Age (in weeks): EDC: Hx Hx Para Hx Section SAB [facility] Medical History (Updated 11/18/24 @ 09:43 by Maria Del Carmen Ham) Wears glasses History of leukemia Former smoker History of Holter monitoring History of echocardiogram Cardiology follow-up encounter History of irregular heartbeat MDS (myelodysplastic syndrome) Health care maintenance Dilated aortic root BPH (benign prostatic hyperplasia) Splenomegaly CLL (chronic lymphocytic leukemia) Thrombocytopenia due to drugs Neutropenia Thrombocytopenia Leukopenia Non Hodgkin's lymphoma Neutropenic fever Pancytopenia Contact with and (suspected) exposure to other viral communicable diseases Tobacco abuse counseling Hypertension Anemia Chronic kidney disease (CKD) Pancytopenia Obesity Thrombocytopenia Paroxysmal supraventricular tachycardia (11/27/19) Near syncope (09/2019) Home Medications ?Medication ?Instructions ?Recorded ?Last Taken ?Type acetaminophen 500 mg tablet 500 mg PO Q6H PRN pain 09/06/24 History (Tylenol Extra Strength) diltiazem HCl 180 mg 180 mg PO DAILY 90 days #90 caps 09/22/24 Unknown Rx capsule,extended release 24 hr metoprolol tartrate 50 mg tablet 50 mg PO BID 90 days #180 tabs 09/22/24 Unknown Rx Allergy/AdvReac Type Severity Reaction Status Date / Time ciprofloxacin (From Cipro) Allergy Intermediate Hives Verified 11/18/24 09:34 ibrutinib (From Imbruvica) Allergy dyspnea/diz Verified 11/18/24 09:34 zness rituximab Allergy Shortness Verified 11/18/24 09:34 of breath prochlorperazine (From AdvReac Unknown Dizziness Verified 11/18/24 09:34 Compazine) apixaban (From Eliquis) AdvReac Chest Verified 11/18/24 09:34 tightness Family History Father Diabetes Hypertension Mother Dementia Surgical History History of tonsillectomy History of bone marrow biopsy Social History household members: spouse Smoking Status: Former smoker Tobacco: How many years used: 15 how long ago did patient quit smoking: Many years ago alcohol intake: never substance use type: does not use caffeine: Yes Audit: Pertinent Findings Pertinent Findings EKG Perinent findings: 09/06/2024. Atrial fibrillation with rapid ventricular response. 152 bpm. Echo (EF%) pertinent findings: 09/06/2024. EF 60%. Right ventricular systolic pressure 44 mmHg. Consult pertinent findings: Cardiology 09/22/2024. Paroxysmal atrial fibrillation. Primary hypertension. Anemia. Stable. Care optimized. Also history of thrombocytopenia and non-Hodgkin's lymphoma. CLL. Recommendation Anesthesia Recommendation Anesthesia recommendation: OPTIMIZED for anesthesia
[2024-11-25] VITALS (16 sets, daily range): BP systolic 120–154; BP diastolic 49–89; PULSE 65–83; RESP 16–20; TEMP 36.3–36.8; O2SAT 94–100; BMI 28.3; BMI 29.9
[2024-11-25] MEDS: Lactated Ringers 1,000 ML 15 ML IV (06:37)
--- NOTE | 2024-11-25 06:52 | PRE.ANES_ITS ---
ASA Classification* ASA Classification ASA Classification: 3 Assessment & Plan Anesthesia* Anesthesia Assessment Anesthesia Assessment: Discussed sedation and/or anesthesia options, risks, benefits, and alternatives with patient/parents/legal guardian/POA. Questions invited. The patient/parents/legal guardian/POA seems to understand and agrees to proceed with anesthesia plan. Reviewed the physical assessment, medical history, allergy history and patient home medications list prior to surgery/procedure/anesthetic and documented any changes. Performed airway and anesthesia risk assessments. Anesthesia Type Anesthesia Type: MAC History Source History Obtained from:: Patient, Chart and Parent/ Guardian Anesthesia Focused Assessment* Temperature: 98.2 F Pulse Rate: 67 Blood Pressure: 132/77 Respiratory Rate: 16 Pulse Ox: 100 Oxygen Delivery Method: Room Air Airway Assessment Mouth opens: >3 cm Mallampati Score: II Teeth Condition: Intact Neck Range of motion (ROM): Full ROM Focused Labs Anesthesia Preop lab: CBC WBC 0.9 K/mm3 (4.4-11.0) L* 11/21/24 11:10 5 RBC 1.95 M/mm3 (4.6-6.2) L 11/21/24 11:10 11/21/24 Hgb 6.4 g/dL (13.0-16.5) L 11/21/24 11:10 11/21/24 Hct 19.3 % (40-54) L 11/21/24 11:10 11/21/24 Plt Count 106 K/mm3 (150-450) L 11/21/24 11:10 11/21/24 CHEMISTRY Potassium 4.6 mmol/L (3.3-5.1) 10/17/24 11:15 10/17/24 Sodium 140 mmol/L (133-145) 10/17/24 11:15 10/17/24 Magnesium 2.1 mg/dL (1.6-2.6) 09/06/24 23:50 09/06/24 Phosphorus 3.7 mg/dL (2.5-4.9) 09/06/24 23:50 09/06/24 BUN 16 mg/dL (4-19) 10/17/24 11:15 10/17/24 Creatinine 1.25 mg/dL (0.70-1.20) H 10/17/24 11:15 Glucose 94 mg/dL (70-99) 10/17/24 11:15 10/17/24 TSH 1.590 uIU/mL (0.358-3.740) 09/07/24 05:50 08/20 04/13 COAG PT 16.3 SECONDS (11.7-14.9) H 09/06/24 20:19 08/20 03/13 Lab additional comments: hgb 6.4, will give 1u pRBC after discussion with surgeon Pre-Assessment Diagnosis/Proposed Procedure Planned Operative Procedure(s): (R) Insertion, Vascular Port right possible left Anesthesia History 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 When Was Last Pacemaker Check QUESTION #4 FULL TEXT: You/Your Family Experience fever (hyperthermia) with Anesthesia Last Oral Intake Last Oral intake: Last Oral Intake NPO since 18:00 11/25/24 06:37 Meds taken in AM with sips of No 11/25/24 06:37 water? Meds patient instructed to take am of surgery PONV PONV - explosive ordnance disposal specialist: PONV - explosive ordnance disposal specialist Female No 11/18/24 09:35 HX of Motion Sickness No 11/18/24 09:35 HX of N/V After Surgery No 11/18/24 09:35 Non-Smoker Yes 11/18/24 09:35 Duration of Surgery greater No 11/18/24 09:35 than 60 minutes Number of Risk Factors 1 11/18/24 09:35 PONV Score Low Risk 11/18/24 09:35 Height & Weight Height & Weight: Anesthesia: Height & Weight Height 6 ft 2 in 11/25/24 06:37 Weight: 100.3 kg 11/25/24 06:37 Body Mass Index (BMI) 28.3 11/25/24 06:37 Respiratory Assessment Respiratory Assessment - explosive ordnance disposal specialist: Respiratory Tract Infection Hx - explosive ordnance disposal specialist Hx Respiratory Tract Infection No 11/18/24 09:35 STOP Sleep Apnea STOP Sleep Apnea - explosive ordnance disposal specialist: STOP Sleep Apnea - explosive ordnance disposal specialist Hx Hypertension Yes 11/23/24 08:28 Hx Sleep Apnea No 11/18/24 09:35 CPAP BIPAP Do you snore loudly (louder No 11/18/24 09:35 than talking or can be heard Do you often feel tired/ No 11/18/24 09:35 fatigued/ sleepy during daytime? Has anyone observed you stop No 11/18/24 09:35 breathing during sleep? STOP Results Negative 11/18/24 09:35 QUESTION #5 FULL TEXT : Do you snore loudly (louder than talking or can be heard through closed doors)? 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 specialist: Tobacco Use History - explosive ordnance disposal specialist Tobacco Use Smoking Status Former smoker 11/18/24 09:35 Hx Tobacco Use No 11/18/24 09:35 Years Smoking Packs Smoked per Day Smoking Cessation Date was No - quit smoking greater 11/18/24 09:35 within the last 15 years than 15 years ago Hx Smoking Cessation Date 04/19/90 11/18/24 09:35 Hx Smoking Cessation Counseling Hematologic Medial History Hematologic Hx - explosive ordnance disposal specialist: Hematologic Medical Hx - oral therapist Hx of Blood Transfusion Yes 11/18/24 09:35 Hx of Transfusion in last 3 Yes 11/18/24 09:35 Months Date of Last Transfusion (if AUG 2024 11/18/24 09:35 within last 3 months) Ever experience any problems No 11/18/24 09:35 with transfusion(s)? Specify any problems Hx of Preganancy in last 3 N/A 11/18/24 09:35 Months Nurse Filling Out Transfusion VLEHBODEGA 11/18/24 09:35 & Questions: Date: 11/18/24 11/18/24 09:35 Time: 09:37 11/18/24 09:35 Patient unable to answer at this time (ie. confused, unrespo /Reproduction History /Reproductive History - explosive ordnance disposal specialist: /Reproductive Hx- explosive ordnance disposal specialist Hx Now Gestational Age (in weeks): EDC: Hx Hx Para Hx Section SAB Active Medications Active Medications: Current Medications Generic Name Dose Route Start Last Admin Trade Name Freq PRN Reason Stop Dose Admin Cefazolin Sodium 2 gm/ Sodium 110 mls @ 150 mls/hr 11/25/24 07:30 Chloride IV 11/25/24 08:13 INTRAOP ONE Lactated Ringer's 1,000 mls @ 15 mls/hr 11/25/24 06:15 11/25/24 06:37 IV 15 mls/hr .Q48H CUBA Administration PFSH Medical History (Updated 11/18/24 @ 09:43 by Maria Del Carmen Ham) Wears glasses History of leukemia Former smoker History of Holter monitoring History of echocardiogram Cardiology follow-up encounter History of irregular heartbeat MDS (myelodysplastic syndrome) Health care maintenance Dilated aortic root BPH (benign prostatic hyperplasia) Splenomegaly CLL (chronic lymphocytic leukemia) Thrombocytopenia due to drugs Neutropenia Thrombocytopenia Leukopenia Non Hodgkin's lymphoma Neutropenic fever Pancytopenia Contact with and (suspected) exposure to other viral communicable diseases Tobacco abuse counseling Hypertension Anemia Chronic kidney disease (CKD) Pancytopenia Obesity Thrombocytopenia Paroxysmal supraventricular tachycardia (11/27/19) Near syncope (09/2019) Home Medications ?Medication ?Instructions ?Recorded ?Last Taken ?Type acetaminophen 500 mg tablet 500 mg PO Q6H PRN pain 09/06/24 History (Tylenol Extra Strength) diltiazem HCl 180 mg 180 mg PO DAILY 90 days #90 caps 09/22/24 11/24/24 Rx capsule,extended release 24 hr metoprolol tartrate 50 mg tablet 50 mg PO BID 90 days #180 tabs 09/22/24 11/24/24 Rx acyclovir 800 mg tablet 800 mg PO BID 11/25/2411/24 History cefdinir 300 mg capsule 300 mg PO BID 11/25/2411/24 History Allergy/AdvReac Type Severity Reaction Status Date / Time ciprofloxacin (From Cipro) Allergy Intermediate Hives Verified 11/25/24 06:34 ibrutinib (From Imbruvica) Allergy dyspnea/diz Verified 11/25/24 06:34 zness rituximab Allergy Shortness Verified 11/25/24 06:34 of breath prochlorperazine (From AdvReac Unknown Dizziness Verified 11/25/24 06:34 Compazine) apixaban (From Eliquis) AdvReac Chest Verified 11/25/24 06:34 tightness Family History Father Diabetes Hypertension Mother Dementia Surgical History History of tonsillectomy History of bone marrow biopsy Social History household members: spouse Smoking Status: Former smoker Tobacco: How many years used: 15 how long ago did patient quit smoking: Many years ago alcohol intake: never substance use type: does not use caffeine: Yes Review of Systems (Anesthesia) ROS Narrative System reviewed and no additional complaints, except as documented. Physical Exam Const alert and oriented x3 HEENT dentition normal Neck full ROM Resp normal respiratory effort Cardio regular rate
--- NOTE | 2024-11-25 07:12 | HP.PCM_ITS ---
History and Physical Date of Admission: 11/25/24 Date of Service: 11/15/24 MR#: [id number] Acct: [id number] Name: DOMI ENAMORADO GENE Rep #: [id number] : 1965 Provider: Dr. Dalton Danielson MD Age/Sex: 59/M Location: [facility] Status: Signed Intake Vital Signs 11/09/2512:02 11/15/2513:03 Height 6 ft 2 in 6 ft 2 in Weight: 221 lb 8 oz 221 lb BMI 28.4 28.3 BP 113/67 110/75 Blood Pressure Location Rt brachial Rt brachial Position Sitting Sitting Respiration 16 16 Pulse 85 Pulse Source Monitor Temp 98.6 F Pulse Oximetry (%) 98 Oxygen Delivery Method room air Intake Visit Reasons: PORT PLACEMENT Chief Complaint: port placement Senior Clinical Research Associate Required: No Is patient in pain?: No Allergies ciprofloxacin (From Cipro) Allergy (Intermediate, Verified 11/15/24 14:03) Hivesibrutinib (From Imbruvica) Allergy (Verified 11/15/24 14:03) dyspnea/dizznessrituximab Allergy (Verified 11/15/24 14:03) Shortness of breathprochlorperazine (From Compazine) Adverse Reaction (Unknown, Verified 11/15/24 14:03) Dizzinessapixaban (From Eliquis) Adverse Reaction (Verified 11/15/24 14:03) Chest tightness Medications ?Medication ?Instructions ?Recorded ?Confirmed ?Type acetaminophen 500 mg tablet 500 mg PO Q6H PRN pain 10/14/23 11/15/24 History (Tylenol Extra Strength) diltiazem HCl 180 mg 180 mg PO DAILY 90 days #90 caps 5 11/15/24 Rx capsule,extended release 24 hr metoprolol tartrate 50 mg tablet 50 mg PO BID 90 days #180 tabs 09/22/24 11/15/24 Rx Have you fallen in the past year?: No PFSH Medical History MDS (myelodysplastic syndrome) Neutropenia Health care maintenance Dilated aortic root Thrombocytopenia Non Hodgkin's lymphoma BPH (benign prostatic hyperplasia) Splenomegaly CLL (chronic lymphocytic leukemia) Thrombocytopenia due to drugs Leukopenia Neutropenic fever Pancytopenia Contact with and (suspected) exposure to other viral communicable diseases Tobacco abuse counseling Hypertension Anemia Chronic kidney disease (CKD) Pancytopenia Obesity Thrombocytopenia Paroxysmal supraventricular tachycardia (11/27/19) Near syncope (09/2019) Surgical History History of tonsillectomy History of bone marrow biopsy Family History Father Diabetes HypertensionMother Dementia Social History household members: spouse Smoking Status: Former smoker Tobacco: How many years used: 15 how long ago did patient quit smoking: Many years ago alcohol intake: never substance use type: does not use caffeine: Yes HPI HPI HPI: Patient is a 59-year-old male who presents for consideration of port placement. Patient was diagnosed with myelodysplastic syndrome after a recent bone biopsy by hematology oncology. He shares that he was diagnosed with bilateral pneumonia and RSV around the time of and during his hospitalization for these conditions was also diagnosed with atrial fibrillation. In total he states he spent 12 to 14 days in the hospital. He states that hematology oncology has been monitoring his blood for the last 4 to 5 weeks since his hospital discharge. He reports weekly blood draws to accomplish this purpose. He states that in addition to possible chemotherapy for his myelodysplastic syndrome the frequency of these blood draws is a second reason for his request for report. He notes that nursing has had increasing difficulty establishing peripheral IV access for these frequent draws. Mr. Enamorado reports a history of CLL treated via chemotherapy through [facility] hematology oncology. He denies any use of a port through those treatments and only via peripheral IV access. He states that he had felt poorly during the time of his chemotherapy and for the subsequent 7 years. He believes that his recent diagnosis of atrial fibrillation should have been made much sooner in relation to his chemotherapy administration. Since obtaining rate control of his heart he has had much better days and states that they come in contradistinction to the last 7 years when he generally just felt poorly without further explanation. He notes that beyond this feeling of malaise he has been watched for quite some time over a diagnosis of low blood cell counts. It is because of these low cell counts that any further discussion around the anticoagulant need for his atrial fibrillation have been dropped for the time being. Patient has no prior history of central line. He denies any history of prior skin or staph infection. Lastly he also denies any history of renal dysfunction. Patient states he has a history of splenomegaly which was evaluated through the [facility] system. He was told by a second opinion that he should consider splenomegaly only as he experiences symptoms. ROS General General: Yes fatigue; No weight change, appetite, colon cancer, breast cancer or weakness HEENT HEENT: No difficulty swallowing, eye injury, eye surgery, swollen glands or hoarseness Endo Endocrine: No thyroid disease, diabetes mellitus, thyroid cancer, Hair loss, heat intolerance or cold intolerance Skin Skin: No rash or changing moles Breast Breast: No left breast lump, right breast lump, nipple discharge, breast pain, abnormal mammogram, abnormal US or breast enlargement Musc Musculoskeletal: No back problems, arthritis, rheumatoid arthritis, gout or joint pain Cardio Cardiovascular: Yes atrial fibrillation; No murmur, pacemaker, heart disease, high blood pressure, heart attack, heart stent, palpitations, shortness of breath with exertion or chest pain Psych Psychiatric: No depression, anxiety or hearing voices Resp Respiratory: Yes shortness of breath, No sleep apnea, Yes cough, No COPD, No asthma, No emphysema and No wheezing Gastro Gastrointestinal: No abdominal pain, No nausea or vomiting, No diarrhea, No constipation, No blood in stool, No acid reflux, No hemorrhoids, No ulcers, No gallbladder problem and No black,tarry stools Raciel Hematologic: No blood thinners, Yes blood disorders, No bleeding, Yes anemia and No blood clots Neuro Neurologic: No system reviewed and no additional complaints, except as documented, No as per HPI, No abnormal gait, No abnormal hearing, No abnormal movements, No abnormal speech, No behavioral changes, No burning sensations, No confusion, No convulsions, No disequilibrium, No dizziness, No localized weakness, No frequent falls, No headache(s), No lack of coordination, No loss of vision, No memory loss, No numbness, No other visual disturbances, No radicular pain, No restless legs, No sensory deficit, No syncope, No tingling, No tremor(s), No weakness and No other Exam Const General: cooperative and anxious Chest Other: No redness, rashes, or scars to indicate prior intervention on bilateral upper chest areas or lower neck Assessment and Plan Assessment and Plan (1) Pancytopenia: Status: Chronic Comment: Patient is 59-year-old male with history of pancytopenia and frequent blood draws for monitoring of his blood counts. He recently diagnosed with mild dysplastic syndrome. He states it is still undecided whether he will require treatment for this diagnosis and does report this to be a completely different entity than his CLL diagnosis treated 7 years ago. From a personal perspective Mr. Enamorado states that he wishes to avoid any initiation of chemotherapy for as long as possible as he is enjoying feeling better for the first time in many years since his treatment for the CLL. However, he is expecting ongoing frequent blood draws for monitoring of his counts and this routine for an indefinite period of time. Given the difficulty that nursing is having establishing peripheral access for these purposes he requests port. Through screening from the rest of his history he appears to be an appropriate candidate. I did discuss with him at length the need to remain vigilant for any signs or symptoms of infection. Lastly we discussed that these ports can be removed once their indication for use is no longer apparent. Patient expressed satisfaction for these descriptions. Plan: Plan for right possible left ultrasound and fluoroscopic guided placement of Port-A-Cath at first mutually available date. (2) MDS (myelodysplastic syndrome): Status: Acute I have examined the patient the following changes are noted: Since our visit a week ago patient had labs drawn showing persistent evidence of pancytopenia?including anemia. He reports that he felt rather poorly when his blood counts were lower but 2 days ago received 2 units of PRBCs and is feeling much improved today. He otherwise reports being in a stable state of health. I did discuss patient's neutropenia with oncology yesterday and they shared that patient is optimized and wished for me to proceed with his current level. Thus with these confirmations we will proceed to the operating room for right possible left Port-A-Cath placement using ultrasound of thoracoscopic guidance.
[2024-11-25] MEDS: Cefazolin 2 GM in 0.9% Normal Saline (100mL Bag) 100 ML IV (07:30)
[2024-11-25] MEDS: Protamine Sulfate 50 MG/5 ML Vial IV (10:26)
[2024-11-25] MEDS: Lidocaine 1% (2ml-nursery) 2 ML VIAL (10:50)
[2024-11-25] MEDS: Bupiv/Epi 0.25% 30 ML Vial (11:05)
[2024-11-25] MEDS: Bupivacaine Mpf 0.5% 30 ML VIAL (11:06)
--- NOTE | 2024-11-25 11:32 | PCM.POST.ANE ---
Anesthesia: Postop Eval I Current Vital Signs Temperature: 97.7 F Pulse Rate: 75 Blood Pressure: 127/66 Respiratory Rate: 20 Pulse Ox: 96 Oxygen Delivery Method: Room Air Assessment Airway patent: Yes Spontaneous unlabored respirations: Yes Mental status: Awake nausea: No Vomiting: No Anesthesia Complication: No Fluid Hydration Crystalloid volume administer (ml): 1,500 Total IV fluid infused: 1,500 Progress Note Anesthesia document: Postop Eval 1 completed: Yes
--- NOTE | 2024-11-25 11:35 | OP.PCM_ITS ---
<Statement entered by Darrel Sanchez MD - 11/25/24 12:29> opened in error Operative Report (Standard) Operative Information Date of Procedure: 11/25/24 Pre-Operative Diagnosis: tunneled central venous port inadvertently in carotid artery Post-Operative Diagnosis: same Surgery/Procedure Performed: Exploration with simple repair of right common carotid artery and right internal jugular vein yard motor operator: Yes Filter Plant Supervisor: Dalton Danielson Tasks completed by home health assistant: Dissecting tissue and Retracting Type of Anesthesia: General RN Documented Start/Stop Times: Operation Date: 11/25/24 07:30 Case Time Into Pre-Op 11/25/24 06:07 Out of Pre-Op 11/25/24 07:27 Anesthesia Start 11/25/24 07:30 Into Room 11/25/24 07:30 Procedure Start 11/25/24 07:51 Procedure End 11/25/24 11:10 Anesthesia End 11/25/24 11:19 Out of Room 11/25/24 11:19 Into Recovery 11/25/24 11:22 Procedure Start Time: 07:50 Procedure Stop Time: 11:10 Select all DRAINS/GRAFTS/IMPLANTS that apply: None Estimated Blood Loss: 50 Specimen collected: No Description of surgery: HPI: Patient is a 59 yo male with cytopenia who is undergoing attempted right IJ tunneled central venous port. After placement bright red more vigorous back bleeding was encountered and contrast injection through the port revealed it to be in ascending aorta. A pressure was then transduced which confirmed arterial pressure and waveforms. Vascular surgery was then contracted to assist. Given the size and location of the access it was felt that immediate cut down and open repair was appropriate. The patient was then converted to general anesthesia. Description of procedure: The patient was already under anesthesia and positioned/prepped. Oblique incision was made along the anterior border of the sternocleidomastoid in the inferior aspect of the neck. Bovie was used to dissect to the platysma which was divided and self retaining retractors placed. Further dissection was carried to the sternocleidomastoid which was dissected free along its anterior border and retracted laterally then retractors moved deeper into the wound. Combination of bovie and blunt dissection was used to track along the port to the carotid sheath. There was significant blood staining of tissue which made identification of structures difficult. Ultimately we were able to mobilize the IJ and retract it laterally exposing the common carotid artery. There was bleeding from the tract of the port from the carotid as well as from the more superficial tissue. Eventually we were able to obtain hemostasis at the puncture site with manual pressure and dissect the more proximal carotid free then use a right angle to place a vessel loop. The patient was then heparinized and allowed to circulate for 3 minutes. The proximal carotid was then clamped and hemostasis observed at the puncture site. The distal carotid was then dissected free and a right angle used to place a vessel loop that was then used to occlude distally. A 5-0 proline pursestring was then placed at the puncture site and secured as the port was withdrawn. Clamps were removed and satisfactory hemostasis noted. There was a palpable pulse and normal Doppler signal proximal and distal to the repair. Retractors were then repositioned and the port noted to be through front wall of IJ and out the back wall. A 6-0 proline pursestring was then placed at the anterior wall puncture and secured as the port withdrawn with adequate hemostasis observed. We were then able to better visualize the back wall and a second 6-0 proline pursestring suture placed to repair the back wall. Heparin was reversed with protamine and Stacy topical hemostatic applied. The wound was inspected for hemostasis which was adequate and the port withdrawn from the subcutaneous tunnel/chest wall incision. The incision was then closed with 3-0 Vicryl followed by 4-0 Monocryl and Dermabond. Incision for the tunneled port were then closed by Dr. Danielson and the patient awaken from anesthesia. He was taken to the PACU with planned observation overnight. Surgical Findings: see above Complications Complications: No
--- NOTE | 2024-11-25 11:38 | RAD_ITS ---
EXAM: XR Chest, 1 View CLINICAL INDICATION: POST OP TECHNIQUE: Frontal view of the chest. COMPARISON: No relevant prior studies available. FINDINGS: LUNGS AND PLEURAL SPACES: Unremarkable. No consolidation. No pneumothorax. HEART: Unremarkable. No cardiomegaly. MEDIASTINUM: Unremarkable. Normal mediastinal contour. BONES/JOINTS: Unremarkable. No acute fracture. RAD/Chest 1 View (Portable) IMPRESSION: No acute cardiopulmonary process. Reading [facility]: [facility]
--- NOTE | 2024-11-25 11:43 | PCM.OPRPT ---
Operative Report (Standard) Operative Information Date of Procedure: 11/25/24 Pre-Operative Diagnosis: Myelodysplastic syndrome with pancytopenia and need for frequent blood monitoring Post-Operative Diagnosis: Same Surgery/Procedure Performed: Aborted insertion of right internal jugular Port-A-Cath assistant production editor: No Type of Anesthesia: General (Patient initially a MAC converted to GETA) RN Documented Start/Stop Times: Operation Date: 11/25/24 07:30 Case Time Into Pre-Op 11/25/24 06:07 Out of Pre-Op 11/25/24 07:27 Anesthesia Start 11/25/24 07:30 Into Room 11/25/24 07:30 Procedure Start 11/25/24 07:51 Procedure End 11/25/24 11:10 Anesthesia End 11/25/24 11:19 Out of Room 11/25/24 11:19 Into Recovery 11/25/24 11:22 Procedure Start Time: 07:51 Procedure Stop Time: 11:10 Select all DRAINS/GRAFTS/IMPLANTS that apply: None Estimated Blood Loss: 100 Specimen collected: No Description of surgery: After appropriate identification in the preoperative holding area the patient was brought to the operating room. There he was administered preoperative antibiotics and positioned supine on the operating room table. Using ultrasound I confirmed patency of the bilateral internal jugular veins but the right seems slightly greater in caliber than the left so I elected to proceed on the right. Once sedation was begun, the upper chest and lower cervical region were prepped and draped in usual sterile fashion. A formal timeout was then conducted to confirm both the patient and procedure. Ultrasound was used to localize the right internal jugular vein. Then a wheal of local anesthetic was raised superficially in this location and the vein was accessed with a single under direct ultrasound guidance using a Seldinger technique and micro access kit to place a guidewire. The position of the guidewire was confirmed with fluoroscopy. The micro access guidewire was exchanged for standard 035 guidewire using provided sheath. Through this exchange I noted that the blood was slightly brighter red than I expected so I paused for a moment in used ultrasound to confirm that my wire was coursing into the internal jugular vein and then requested an x-ray to confirm the tip of the wire terminating in the position of what I expected to be in the right atrium. Next the position of the port pocket was determined and again local anesthetic was used to anesthetize the area of both the pocket and the tunneling cephalad. A transverse incision approximately 3 cm in width was made down through the subcutaneous tissue. Selective electrocautery was used to obtain hemostasis. Then with blunt dissection the port pocket was developed. The catheter was connected to the tunneler and was tunneled up to the position of the guidewire. Here the dilator and peel-away sheath were placed over the guidewire while watching under fluoroscopic guidance and the guidewire was removed. Position was again confirmed with fluoroscopy. The catheter length was estimated based on the external placement of a hemostat to approximate the level of the leora and the cavoatrial junction. The catheter was then fed into the sheath and the sheath was peeled away as the catheter was inserted fully into the neck. Back in the chest the excess catheter was trimmed and the port was connected to the catheter. However as I looked to trim this excess catheter it became apparent that I had bright red pulsatile blood coming from the catheter and I immediately stopped where I was in the operation. I attempted to repeat imaging steps by first looking under ultrasound to confirm that the catheter appeared to track into the internal jugular vein and then also used fluoroscopy to try to approximate the location of the catheter. The catheter tip appeared to terminate just caudad to the right mainstem bronchus. I sought explanation for the blood return with patient's prior echocardiograms and also requested that the OR staff contact my partner or vascular surgery. Simultaneously I also asked that the staff obtain materials to perform a contrast study through the port. Shortly thereafter my partner, Dr. Vaca arrived to the room and we performed a contrast study via the catheter that was concerning for an intra-arterial location as there appeared to be filling of the aortic arch. To further confirm this finding I asked anesthesia to set up for arterial line monitoring and we transduced the catheter to find that it showed systolic pressures with a pulsatile waveform. It was at this point vascular surgery returned our call and recommended not pulling the catheter but intubating the patient and preparing for a repair. They were not immediately on campus but pledged to arrive shortly to assist. While we waited anesthesia got set up to perform endotracheal intubation and I scrubbed out after passing the catheter to Dr. Vaca temporarily to go speak with patient's spouse and provide them update on what had occurred. In the interim I also asked staff to obtain coags and a type and cross for 2 units PRBCs in an anticipatory fashion. Notably, patient was remarkably stable and there was no evidence of a significant hematoma on the neck during this wait. Not long after I returned Dr. Richey of vascular surgery arrived to the room and we set about formal repair of both the carotid artery and internal jugular vein where we found a through and through injury of the right internal jugular vein and an anterolateral puncture of the right carotid artery. See his dictation for complete details. We did briefly discuss the merits and drawbacks of formally placing a Port-A-Cath either via subclavian approach or in the contralateral position at this OR setting. However, given patient's significant neutropenia and risk for infection with his current wounds we elected to defer this to a later time. Surgical Findings: ? Widely patent right internal jugular vein accessed with single attempt using micro access kit ? Pulsatile blood from catheter and ultimately arteriogram showing intra-arterial position via inadvertent carotid access. Complications Complications: Yes Complication Details: Accidental puncture of the right common carotid artery Admit VTE Documentation VTE Mechan Device Prophylaxis: SCD's
--- NOTE | 2024-11-25 12:28 | POSTOPAN2_ITS ---
Anesthesia Postop Eval I Sum Postop Eval Completion status Anesthesia document: Postop Eval 1 completed: Yes Anesthesia Postop Eval I Summary Anesthesia Postop Eval I Summary: Anesthesia Postop Eval I: Assessment Summary Airway patent Yes 11/25/24 11:33 DIRECTOR [email or web address] Spontaneous unlabored Yes 11/25/24 11:33 DIRECTOR [email or web address] respirations Mental status Awake 11/25/24 11:33 DIRECTOR [email or web address] nausea No 11/25/24 11:33 DIRECTOR [email or web address] Vomiting No 11/25/24 11:33 DIRECTOR [email or web address] Anesthesia Postop Eval I: Fluid Summary Crystalloid volume administer 1,500 11/25/24 11:33 DIRECTOR [email or web address] (ml) Colloids volume administered ( ml) Blood Product volume administered (ml) Total IV fluid infused 1,500 11/25/24 11:33 DIRECTOR [email or web address] Anesthesia Postop Eval I: Summary Notes Anesthesia Complication No 11/25/24 11:33 DIRECTOR [email or web address] Anesthesia Complication Comment: Post-operative progress note Anesthesia: Postop Eval II Evaluation Mental status: Awake and Calm Pain Level: 3 nausea: No Vomiting: No
--- NOTE | 2024-11-25 12:28 | PCM.POSTANE2 ---
Anesthesia Postop Eval I Sum Postop Eval Completion status Anesthesia document: Postop Eval 1 completed: Yes Anesthesia Postop Eval I Summary Anesthesia Postop Eval I Summary: Anesthesia Postop Eval I: Assessment Summary Airway patent Yes 11/25/24 11:33 SENIOR ADMINISTRATIVE SERVICES [email or web address] Spontaneous unlabored Yes 11/25/24 11:33 SENIOR ADMINISTRATIVE SERVICES [email or web address] respirations Mental status Awake 11/25/24 11:33 SENIOR ADMINISTRATIVE SERVICES [email or web address] nausea No 11/25/24 11:33 SENIOR ADMINISTRATIVE SERVICES [email or web address] Vomiting No 11/25/24 11:33 SENIOR ADMINISTRATIVE SERVICES [email or web address] Anesthesia Postop Eval I: Fluid Summary Crystalloid volume administer 1,500 11/25/24 11:33 SENIOR ADMINISTRATIVE SERVICES [email or web address] (ml) Colloids volume administered ( ml) Blood Product volume administered (ml) Total IV fluid infused 1,500 11/25/24 11:33 SENIOR ADMINISTRATIVE SERVICES [email or web address] Anesthesia Postop Eval I: Summary Notes Anesthesia Complication No 11/25/24 11:33 SENIOR ADMINISTRATIVE SERVICES [email or web address] Anesthesia Complication Comment: Post-operative progress note Anesthesia: Postop Eval II Evaluation Mental status: Awake and Calm Pain Level: 3 nausea: No Vomiting: No
[2024-11-25] MEDS: 0.9% Normal Saline (1000mL) 1,000 ML 100 ML IV ×2 (12:30→23:47)
[2024-11-25] MEDS: oxyCODONE 5 MG Tablet PO ×2 (14:14→20:20)
[2024-11-25] MEDS: Acetaminophen 500 MG Tablet PO (14:14)
[2024-11-25 19:15] LABS: Hematocrit 21.7 % (40-54); Hemoglobin 7.1 g/dL (13.0-16.5); Mean Corp Hgb Conc 32.7 g/dL (32-36); Mean Corpuscular Hgb 31.3 pg (27.0-32.0); Mean Corpuscular Volume 95.6 fL (80-94); Mean Platelet Vol. 8.8 fl (6.2-12.0); POSITIVE COUNT YES; POSITIVE DIFFERENTIAL YES; POSITIVE MORPHOLOGY YES; Platelet Count 92 K/mm3 (150-450); RBC Distribution Width CV 20.9 % (11.6-14.6); RBC Distribution Width SD 72.3 fl (35.1-43.9); Red Blood Count 2.27 M/mm3 (4.6-6.2)
[2024-11-25 19:27] LABS: White Blood Count 0.5 K/mm3 (4.4-11.0)
[2024-11-25 20:00] LABS: Differential Indicated MANUAL DIFF
[2024-11-25 20:42] LABS: Scan Smear per Review Criteria MANUAL DIFF
[2024-11-25 20:44] LABS: Lymphocyte 40 % (19-41); Monocyte 2 % (0-10); Neutrophil-Segmented 58 % (47-70); Total Cells Counted 100 (MANUAL DIFF)
[2024-11-25 20:45] LABS: Absolute Lymphocyte Count 0.19 X10^3/uL (0.83-4.51); Absolute Neutrophil Count 0.3 X10^3/uL (2.0-7.7); Platelet Estimate SLT DEC (ADEQ)
[2024-11-25 20:46] LABS: Anisocytosis 3+; Hypochromasia 1+; Ovalocyte 1+; Tear Drop Cell 1+
[2024-11-25 20:47] LABS: Macrocytosis 2+
[2024-11-25] MEDS: 0.9% Saline Lock 10 ML Syringe IV (21:05)
[2024-11-25] MEDS: Metoprolol Tartrate 5 MG/5 ML Vial IV (21:05)
[2024-11-26] VITALS (8 sets, daily range): BP systolic 131–143; BP diastolic 66–88; PULSE 60–138; RESP 16–18; TEMP 36.6; O2SAT 97–100
[2024-11-26] MEDS: oxyCODONE 5 MG Tablet PO (01:54)
[2024-11-26] MEDS: Acetaminophen 500 MG Tablet PO (01:55)
[2024-11-26 07:43] LABS: Hematocrit 21.7 % (40-54); Hemoglobin 7.1 g/dL (13.0-16.5); Mean Corp Hgb Conc 32.7 g/dL (32-36); Mean Corpuscular Volume 97.7 fL (80-94); POSITIVE COUNT YES; POSITIVE DIFFERENTIAL YES; POSITIVE MORPHOLOGY YES; Platelet Count 94 K/mm3 (150-450); RBC Distribution Width CV 20.7 % (11.6-14.6); RBC Distribution Width SD 70.6 fl (35.1-43.9); Red Blood Count 2.22 M/mm3 (4.6-6.2); White Blood Count 0.7 K/mm3 (4.4-11.0)
[2024-11-26 09:17] LABS: Differential Indicated MANUAL DIFF
[2024-11-26 09:47] LABS: Lymphocyte 52 % (19-41); Neutrophil-Band 2 % (0-5); Neutrophil-Segmented 46 % (47-70); Total Cells Counted 50 (MANUAL DIFF)
[2024-11-26 09:48] LABS: Anisocytosis 2+; Platelet Estimate MKD DEC (ADEQ); Red Cell Morphology N CHROM NORMAL (NORM C&C)
[2024-11-26 09:49] LABS: Absolute Lymphocyte Count 0.35 X10^3/uL (0.83-4.51); Absolute Neutrophil Count 0.3 X10^3/uL (2.0-7.7)
[2024-11-26] MEDS: dilTIAZem CD 180 MG Capsule PO (09:55)
[2024-11-26] MEDS: Metoprolol Tartrate 50 MG Tablet PO (09:59)
--- NOTE | 2024-11-26 10:14 | DCINST_ITS ---
Discharge Instructions Diet Discharge Diet: No restrictions DC O2, CPAP, BIPAP needs Home O2 Discharge instructions: No Dressing / Incision Discharge Activity: May Drive (May drive as long as you are safe to check your blind spots quickly) and May Shower Ice area for (Minutes): 20 Lifting Restrictions: No lifting greater than 15 pounds for 2 weeks after surgery Dressing / Incision Call your doctor if your incision/area has: Continuous Slow Oozing, Sudden Increased Bleeding, Increased Pain/ Swelling, Increased Redness, Foul Smelling Discharge and Swelling at the incision site Call your doctor if you observe: Fever of 101 or Higher and Uncontrolled pain Suture Line Care: Avoid Pulling/Pushing Cleanse incision/area with: Soap & Water Follow Up Care Please Follow Up With: Dalton Danielson MD When: Within 1 week postop Test Results: Test results from this visit will be discussed in further detail at your follow- up appointment, if applicable. Discharge Plan Admission Admit Date/Time: 11/25/24 11:43 Primary Reason for Your Visit: Iatrogenic carotid injury Attending Provider: Dalton Danielson Primary Care Provider: Jaquelin Dexter Discharge Orders/Prescriptions Prescriptions: New oxycodone 5 mg Tablet 5 mg PO Q6H PRN PRN (Reason: Pain Score 6-10) 3 Days Qty: 10 0RF Continued acetaminophen [Tylenol Extra Strength] 500 mg tablet 500 mg PO Q6H PRN (Reason: pain ) diltiazem HCl 180 mg capsule,extended release 24hr 180 mg PO DAILY 90 Days Qty: 90 3RF metoprolol tartrate 50 mg tablet 50 mg PO BID 90 Days Qty: 180 3RF acyclovir 800 mg tablet 800 mg PO BID cefdinir 300 mg capsule 300 mg PO BID Referrals / Follow Up: Jaquelin Dexter MD [Primary Care Provider] - Disposition Disposition (needs filled in before D/C Order can be placed): Home, Self Care
--- NOTE | 2024-11-26 10:14 | NURSING ---
1000 patient took off heart monitor. charge nurse aware. Richard Fay RN
--- NOTE | 2024-11-26 10:21 | PCM.DC.SUM ---
Providers Date of Admission: 11/25/24 Primary Care Physician: Dr. Jaquelin Dexter MD Reason For Visit: Insertion, Vascular Port right possible left Medications at Discharge Home Medications acetaminophen 500 mg tablet (Tylenol Extra Strength) 500 mg PO Q6H PRN pain 10/14/23 diltiazem HCl 180 mg capsule,extended release 24 hr 180 mg PO DAILY 90 days #90 caps 09/22/24 metoprolol tartrate 50 mg tablet 50 mg PO BID 90 days #180 tabs 09/22/24 acyclovir 800 mg tablet 800 mg PO BID 11/25/24 cefdinir 300 mg capsule 300 mg PO BID 11/25/24 oxycodone 5 mg tablet 5 mg PO Q6H PRN PRN Pain Score 6-10 3 days #10 tabs 11/26/24 Hospital Course Operations - (Aborted Port-A-Cath and neck exploration with repair of iatrogenic carotid artery and internal jugular vein injuries.) Summary of Care Provided Hospital Course: Patient is a 59-year-old male who was scheduled for outpatient Port-A-Cath placement 11/25/2024. Unfortunately intraoperatively identified that patient's catheter had inadvertently been directed through and through the internal jugular vein and then into the right carotid artery. Vascular surgery was immediately notified and together we explored to the patient's neck to repair the carotid artery and internal jugular vein?ultimately removing patient's port for the interim. Postoperatively he was neurologically intact but had some discomfort. He was admitted for overnight observation for close monitoring of his neck. Overnight course was uneventful and patient reported improved pain control the morning of postoperative day 1. Postoperative hemoglobin had down trended slightly but remained stable through recheck postoperative day 1. Reassuring exam showing just evidence of some ecchymotic change and mild subcutaneous hematoma patient was provided activity and wound care instructions. He was discharged home in improved condition with expectation set for outpatient follow-up with both myself and Dr. Richey of vascular surgery. We did review that patient should be eligible for Port-A-Cath placement on the right in the future following a period of healing. Physical Exam Const alert, oriented x3 and no apparent distress Constitutional Narrative: Pleasant/appreciative General Appearance: cooperative Neck Neck Narrative: Mild to moderate ecchymotic changes in the soft tissue about patient's oblique neck incision and transverse upper chest incision consistent with tunneling and limited soft tissue dissection. No evidence of large underlying hematoma or fluctuance. Incision lines remain well-approximated and sealed beneath layer of Dermabond skin glue. No local warmth or redness to suggest concern for infectious process. Weight / BMI Weight Weight: 221 lb 1.978 oz Body Mass Index (BMI) 29.9 ABG / Lab / Microbiology Data 11/26/24 07:03 Laboratory: Laboratory Results - last 24 hr 11/25/24 19:00: WBC 0.5 L*, RBC 2.27 L, Hgb 7.1 L, Hct 21.7 L, MCV 95.6 H, MCH 31.3, MCHC 32.7, RDW Std Deviation 72.3 H, RDW Coeff of Екатерина 20.9 H, Plt Count 92 L, MPV 8.8, Immature Gran % (Auto) OUTSIDE SALES ACCOUNT REPRESENTATIVE, Neut % (Auto) OUTSIDE SALES ACCOUNT REPRESENTATIVE, Lymph % (Auto) OUTSIDE SALES ACCOUNT REPRESENTATIVE, [place] % (Auto) OUTSIDE SALES ACCOUNT REPRESENTATIVE, Eos % (Auto) OUTSIDE SALES ACCOUNT REPRESENTATIVE, Baso % (Auto) OUTSIDE SALES ACCOUNT REPRESENTATIVE, Absolute Neuts (auto) 0.3 L, Absolute Lymphs (auto) 0.19 L, Total Counted 100, Neutrophils % (Manual) 58, Lymphocytes % (Manual) 40, Monocytes % (Manual) 2, Nucleated RBC % OUTSIDE SALES ACCOUNT REPRESENTATIVE, Platelet Estimate SLT DEC, Hypochromasia 1+, Anisocytosis 3+, Macrocytosis 2+, Tear Drop Cells 1+, Ovalocytes 1+ 11/26/24 07:03: WBC 0.7 L*, RBC 2.22 L, Hgb 7.1 L, Hct 21.7 L, MCV 97.7 H, MCH 32.0, MCHC 32.7, RDW Std Deviation 70.6 H, RDW Coeff of Екатерина 20.7 H, Plt Count 94 L, MPV 10.0, Neut % (Auto) Not Reportable, Absolute Neuts (auto) 0.3 L, Absolute Lymphs (auto) 0.35 L, Total Counted 50, Neutrophils % (Manual) 46 L, Band Neutrophils % 2, Lymphocytes % (Manual) 52 H, Platelet Estimate MKD DEC, RBC Morphology N CHROM, Anisocytosis 2+ Radiography Diagnostic Testing: Radiology Impression Chest X-Ray 11/25/24 11:38 IMPRESSION: No acute cardiopulmonary process. Reading Location: [facility] D/C Instructions Discharge Diet: No restrictions Ice area for (Minutes): 20 Call your doctor if your incision/area has: Continuous Slow Oozing, Sudden Increased Bleeding, Increased Pain/ Swelling, Increased Redness, Foul Smelling Discharge and Swelling at the incision site Call your doctor if you observe: Fever of 101 or Higher and Uncontrolled pain Suture Line Care: Avoid Pulling/Pushing Cleanse incision/area with: Soap & Water DC O2, CPAP, BIPAP Needs Home O2 Discharge instructions: No Please Follow Up With: Dalton Danielson MD When: Within 1 week postop Meaningful Use Info Meaningful Use Meaningful Use Diagnoses (Choose all that apply): None applicable Ischemic Stroke Statin Dosing Therapy Reference: STATIN DOSE THERAPY REFERENCE: * Patients > 75 years receive moderate or high dose statin therapy. * Patients 75 years or YOUNGER should receive HIGH intensity statin dose unless contraindicated. You will be required to document reason for non-treatment if statin daily dose does not meet guidelines. HIGH DOSE STATIN THERAPY DAILY Atorvastatin > than or = to 40 mg Rosuvastatin > than or = to 20 mg Amlodipine + Atorvastatin > than or = to 2.5/40 mg Ezetimibe + Simvastatin 10/80 mg Simvastatin 80mg Discharge Plan Admission Admit Date/Time: 11/25/24 11:43 Primary Reason for Your Visit: Iatrogenic carotid injury Attending Provider: Dalton Danielson Primary Care Provider: Jaquelin Dexter Discharge Orders/Prescriptions Prescriptions: New oxycodone 5 mg Tablet 5 mg PO Q6H PRN PRN (Reason: Pain Score 6-10) 3 Days Qty: 10 0RF Continued acetaminophen [Tylenol Extra Strength] 500 mg tablet 500 mg PO Q6H PRN (Reason: pain ) diltiazem HCl 180 mg capsule,extended release 24hr 180 mg PO DAILY 90 Days Qty: 90 3RF metoprolol tartrate 50 mg tablet 50 mg PO BID 90 Days Qty: 180 3RF acyclovir 800 mg tablet 800 mg PO BID cefdinir 300 mg capsule 300 mg PO BID Referrals / Follow Up: Jaquelin Dexter MD [Primary Care Provider] - Disposition Disposition (needs filled in before D/C Order can be placed): Home, Self Care Charges/Coding Visit Charges Inpatient E&M: 94732 Disch Hosp
== END 2024-11-26 13:15 | disposition home or self-care (01) ==
LOC: SDC 12:48 → MS3 12:48
PROVIDERS: Admitting Provider Surgery; PCP Internal Medicine; Referring Provider Surgery; Visit Provider Surgery
PROC: (CPT 36561; principal; 2024-11-25 07:15)
DX: I97.51 Accidental puncture and laceration of a circulatory system organ or structure during a circulatory system procedure (principal); D46.9 Myelodysplastic syndrome, unspecified; D61.818 Other pancytopenia; I48.91 Unspecified atrial fibrillation; Z53.09 Procedure and treatment not carried out because of other contraindication; Y65.8 Other specified misadventures during surgical and medical care; Y92.234 Operating room of hospital as the place of occurrence of the external cause; I12.9 Hypertensive chronic kidney disease with stage 1 through stage 4 chronic kidney disease, or unspecified chronic kidney disease; N18.9 Chronic kidney disease, unspecified; Z79.899 Other long term (current) drug therapy; Z87.891 Personal history of nicotine dependence; Z85.6 Personal history of leukemia; Z92.21 Personal history of antineoplastic chemotherapy
CPT/HCPCS: 36561; 35201; 00350; 36415; 71045; 77001; 85025; 86850; 86900; 86901; 96360; 96361; 99221; A4648; C1894; A4216; C1788; G0378; J2405

== ENCOUNTER 2025-01-17 07:39 | Day surgery (SDC) | payer OTHER, SELFPAY ==
--- NOTE | 2025-01-03 08:37 | PAT.ANESEVAL ---
Pre-Assessment Diagnosis/Proposed Procedure Planned Operative Procedure(s): (L) Insertion, Vascular Port Left poss Right Anesthesia History Anesthesia History - anesthesiology physician: Anesthesia History - anesthesiology physician Hx Hospitalization Yes: 11/2024 after failed med 01/03/25 08:14 port insertion Any Problems With Anesthesia No 01/03/25 08:14 Cholinesterase deficiency No 01/03/25 08:14 You/Your Family Experience No 01/03/25 08:14 fever (hyperthermia) with Relationship Recent Exposure to Contagious No 11/25/24 06:37 Disease Does patient have nerve No 01/03/25 08:14 stimulator Patient instructed to have device shut off --Does patient have Pacemaker or ICD? When Was Last Pacemaker Check QUESTION #4 FULL TEXT: You/Your Family Experience fever (hyperthermia) with Anesthesia Last Oral Intake Last Oral intake: Last Oral Intake NPO since Meds taken in AM with sips of water? Meds patient instructed to take am of surgery PONV PONV - anesthesiology physician: PONV - anesthesiology physician Female No 01/03/25 08:14 HX of Motion Sickness Yes 01/03/25 08:14 HX of N/V After Surgery No 01/03/25 08:14 Non-Smoker Yes 01/03/25 08:14 Duration of Surgery greater No 01/03/25 08:14 than 60 minutes Number of Risk Factors 2 01/03/25 08:14 PONV Score Moderate Risk 01/03/25 08:14 Height & Weight Height & Weight: Anesthesia: Height & Weight Height 6 ft 2 in 12/27/24 10:02 Respiratory Assessment Respiratory Assessment - anesthesiology physician: Respiratory Tract Infection Hx - anesthesiology physician Hx Respiratory Tract Infection No 01/03/25 08:14 STOP Sleep Apnea STOP Sleep Apnea - anesthesiology physician: STOP Sleep Apnea - anesthesiology physician Hx Hypertension Yes 01/03/25 08:14 Hx Sleep Apnea No 01/03/25 08:14 CPAP BIPAP Do you snore loudly (louder No 01/03/25 08:14 than talking or can be heard Do you often feel tired/ No 01/03/25 08:14 fatigued/ sleepy during daytime? Has anyone observed you stop No 01/03/25 08:14 breathing during sleep? STOP Results Negative 01/03/25 08:14 QUESTION #5 FULL TEXT : Do you snore loudly (louder than talking or can be heard through closed doors)? Tobacco Use History Tobacco Use History - anesthesiology physician: Tobacco Use History - anesthesiology physician Tobacco Use Smoking Status Former smoker 01/03/25 08:14 Hx Tobacco Use No 01/03/25 08:14 Years Smoking Packs Smoked per Day Smoking Cessation Date was No - quit smoking greater 01/03/25 08:14 within the last 15 years than 15 years ago Hx Smoking Cessation Date 04/19/90 01/03/25 08:14 Hx Smoking Cessation Counseling Hematologic Medial History Hematologic Hx - anesthesiology physician: Hematologic Medical Hx - [employer] can worker Hx of Blood Transfusion No 01/03/25 08:14 Hx of Transfusion in last 3 No 01/03/25 08:14 Months Date of Last Transfusion (if within last 3 months) Ever experience any problems No 01/03/25 08:14 with transfusion(s)? Specify any problems Hx of Preganancy in last 3 N/A 01/03/25 08:14 Months Nurse Filling Out Transfusion [facility] 01/03/25 08:14 & Questions: Date: 01/03/25 01/03/25 08:14 Time: 08:18 01/03/25 08:14 Patient unable to answer at this time (ie. confused, unrespo /Reproduction History /Reproductive History - anesthesiology physician: /Reproductive Hx- anesthesiology physician Hx Now No 01/03/25 08:14 Gestational Age (in weeks): EDC: Hx Hx Para Hx Section SAB No 01/03/25 08:14 [facility] Medical History Encounter for education Acute myeloid leukemia Wears glasses History of leukemia Former smoker History of Holter monitoring History of echocardiogram Cardiology follow-up encounter History of irregular heartbeat MDS (myelodysplastic syndrome) Secondary pneumonia RSV (acute bronchiolitis due to respiratory syncytial virus) Atrial fibrillation with RVR Acute bronchitis Acute upper respiratory infection Hematuria Health care maintenance Dilated aortic root BPH (benign prostatic hyperplasia) Splenomegaly CLL (chronic lymphocytic leukemia) Dyspnea Infected wound Nonhealing surgical wound Thrombocytopenia due to drugs Neutropenia Thrombocytopenia Leukopenia Non Hodgkin's lymphoma Pain in left lower leg Neutropenic fever Hypoxia Pancytopenia Contact with and (suspected) exposure to other viral communicable diseases Tobacco abuse counseling Hypertension Anemia Chronic kidney disease (CKD) Pancytopenia Obesity Thrombocytopenia Paroxysmal supraventricular tachycardia (11/27/19) Near syncope (09/2019) Home Medications ?Medication ?Instructions ?Recorded ?Last Taken ?Type acetaminophen 500 mg tablet 500 mg PO Q6H PRN pain 10/14/23 09/06/24 History (Tylenol Extra Strength) diltiazem HCl 180 mg 180 mg PO DAILY 90 days #90 caps 09/22/24 11/24/24 Rx capsule,extended release 24 hr metoprolol tartrate 50 mg tablet 50 mg PO BID 90 days #180 tabs 09/22/24 11/24/24 Rx acyclovir 800 mg tablet 800 mg PO BID 11/25/24 11/24/24 History cefdinir 300 mg capsule 300 mg PO BID 11/25/24 11/24/24 History allopurinol 300 mg tablet 300 mg PO .COMPLEX #30 tabs 12/26/24 Unknown Rx lidocaine-prilocaine 2.5 %-2.5 % 1 applic topical ONCE PRN port 12/26/24 Unknown Rx topical cream access 30 days #30 grams ondansetron 8 mg disintegrating 8 mg PO Q8H PRN nausea and 12/26/24 Unknown Rx tablet vomiting #30 tabs venetoclax 100 mg tablet 200 mg PO QDAY 12/29/24 Unknown History (Venclexta) Allergy/AdvReac Type Severity Reaction Status Date / Time ciprofloxacin (From Cipro) Allergy Intermediate Hives Verified 01/03/25 08:11 ibrutinib (From Imbruvica) Allergy dyspnea/diz Verified 01/03/25 08:11 zness rituximab Allergy Shortness Verified 01/03/25 08:11 of breath prochlorperazine (From AdvReac Unknown Dizziness Verified 01/03/25 08:11 Compazine) apixaban (From Eliquis) AdvReac Chest Verified 01/03/25 08:11 tightness Family History Father Diabetes Hypertension Mother Dementia Surgical History History of tonsillectomy History of bone marrow biopsy Social History household members: spouse Smoking Status: Former smoker Tobacco: How many years used: 15 how long ago did patient quit smoking: Many years ago alcohol intake: never substance use type: does not use caffeine: Yes Audit: Pertinent Findings HISTORY of Pertinent Findings History of Pertinent Findings: Patient is a 59-year-old male who returns for consideration of port placement after aborted port placement on the right due to inadvertent carotid entry and required cutdown/vascular repair on 11/25/2024. Patient shares that his oncology plan has been in flux a bit about when he may start chemotherapy but there seems to be a consensus that he will now begin low-dose chemotherapy in approximately 3 to 4 weeks. He shares that he is severely fatigued and that the blood transfusions do not seem to be working as effectively as they did previously. He does not believe his atrial fibrillation is playing into how he feels. He states that just taking 2-3 steps causes him to be winded. He notes that he is still trying to work through this exceptional fatigue. He is awaiting a blood transfusion tomorrow. Pertinent Findings EKG Perinent findings: EKG Perinent findings: 09/06/2024. Atrial fibrillation with rapid ventricular response. 152 bpm. Echo (EF%) pertinent findings: Echo (EF%) pertinent findings: 09/06/2024. EF 60%. Right ventricular systolic pressure 44 mmHg. Echocardiogram in August 2024 showed aortic root measuring 3.9 cm. Chest CTA on 09/06/2024 showed no thoracic aortic aneurysm or dissection. Will continue to monitor. Will continue to focus on heart rate and blood pressure control. Recommendation Anesthesia Recommendation Anesthesia recommendation: F/U recommended (Please seek cardiac clearance as the patient reported new-onset SOB which may be cardiac related secondary to his cancer. Should also acquire new EKG ) Follow up Details Consult Recommendation: Yes Consult Rec Details: Cardiology physician - patient is new onset SOB, secondary to anemia or secondary to cardiac condition? Patient also has been in afib on recent admission, do not see any recent EKG since then. Please seek cardiac clearance
--- NOTE | 2025-01-04 21:14 | PAT.ANESEVAL ---
Pre-Assessment Diagnosis/Proposed Procedure Planned Operative Procedure(s): (L) Insertion, Vascular Port Left poss Right Anesthesia History Anesthesia History - [employer]: Anesthesia History - [employer] Hx Hospitalization Yes: 11/2024 after failed med 01/03/25 08:14 port insertion Any Problems With Anesthesia No 01/03/25 08:14 Cholinesterase deficiency No 01/03/25 08:14 You/Your Family Experience No 01/03/25 08:14 fever (hyperthermia) with Relationship Recent Exposure to Contagious No 11/25/24 06:37 Disease Does patient have nerve No 01/03/25 08:14 stimulator Patient instructed to have device shut off --Does patient have Pacemaker or ICD? When Was Last Pacemaker Check QUESTION #4 FULL TEXT: You/Your Family Experience fever (hyperthermia) with Anesthesia Last Oral Intake Last Oral intake: Last Oral Intake NPO since Meds taken in AM with sips of water? Meds patient instructed to take am of surgery PONV PONV - [employer]: PONV - [employer] Female No 01/03/25 08:14 HX of Motion Sickness Yes 01/03/25 08:14 HX of N/V After Surgery No 01/03/25 08:14 Non-Smoker Yes 01/03/25 08:14 Duration of Surgery greater No 01/03/25 08:14 than 60 minutes Number of Risk Factors 2 01/03/25 08:14 PONV Score Moderate Risk 01/03/25 08:14 Height & Weight Height & Weight: Anesthesia: Height & Weight Height 6 ft 2 in 12/27/24 10:02 Respiratory Assessment Respiratory Assessment - [employer]: Respiratory Tract Infection Hx - [employer] Hx Respiratory Tract Infection No 01/03/25 08:14 STOP Sleep Apnea STOP Sleep Apnea - [employer]: STOP Sleep Apnea - [employer] Hx Hypertension Yes 01/03/25 08:14 Hx Sleep Apnea No 01/03/25 08:14 CPAP BIPAP Do you snore loudly (louder No 01/03/25 08:14 than talking or can be heard Do you often feel tired/ No 01/03/25 08:14 fatigued/ sleepy during daytime? Has anyone observed you stop No 01/03/25 08:14 breathing during sleep? STOP Results Negative 01/03/25 08:14 QUESTION #5 FULL TEXT : Do you snore loudly (louder than talking or can be heard through closed doors)? 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 Specify any problems Hx of Preganancy in last 3 N/A 01/03/25 08:14 Months Nurse Filling Out Transfusion [facility] 01/03/25 08:14 & Questions: Date: 01/03/25 01/03/25 08:14 Time: 08:18 01/03/25 08:14 Patient unable to answer at this time (ie. confused, unrespo /Reproduction History /Reproductive History - [employer]: /Reproductive Hx- [employer] Hx Now No 01/03/25 08:14 Gestational Age (in weeks): EDC: Hx Hx Para Hx Section SAB No 01/03/25 08:14 [facility] Medical History Encounter for education Acute myeloid leukemia Wears glasses History of leukemia Former smoker History of Holter monitoring History of echocardiogram Cardiology follow-up encounter History of irregular heartbeat MDS (myelodysplastic syndrome) Secondary pneumonia RSV (acute bronchiolitis due to respiratory syncytial virus) Atrial fibrillation with RVR Acute bronchitis Acute upper respiratory infection Hematuria Health care maintenance Dilated aortic root BPH (benign prostatic hyperplasia) Splenomegaly CLL (chronic lymphocytic leukemia) Dyspnea Infected wound Nonhealing surgical wound Thrombocytopenia due to drugs Neutropenia Thrombocytopenia Leukopenia Non Hodgkin's lymphoma Pain in left lower leg Neutropenic fever Hypoxia Pancytopenia Contact with and (suspected) exposure to other viral communicable diseases Tobacco abuse counseling Hypertension Anemia Chronic kidney disease (CKD) Pancytopenia Obesity Thrombocytopenia Paroxysmal supraventricular tachycardia (11/27/19) Near syncope (09/2019) Home Medications ?Medication ?Instructions ?Recorded ?Last Taken ?Type acetaminophen 500 mg tablet 500 mg PO Q6H PRN pain 10/14/23 09/06/24 History (Tylenol Extra Strength) diltiazem HCl 180 mg 180 mg PO DAILY 90 days #90 caps 09/22/24 11/24/24 Rx capsule,extended release 24 hr metoprolol tartrate 50 mg tablet 50 mg PO BID 90 days #180 tabs 09/22/24 11/24/24 Rx acyclovir 800 mg tablet 800 mg PO BID 11/25/24 11/24/24 History cefdinir 300 mg capsule 300 mg PO BID 11/25/24 11/24/24 History allopurinol 300 mg tablet 300 mg PO .COMPLEX #30 tabs 12/26/24 Unknown Rx Held on 01/03/25. Instructions: MD Ordered ondansetron 8 mg disintegrating 8 mg PO Q8H PRN nausea and 12/26/24 Unknown Rx tablet vomiting #30 tabs venetoclax 100 mg tablet 200 mg PO QDAY 12/29/24 Unknown History (Venclexta) Allergy/AdvReac Type Severity Reaction Status Date / Time ciprofloxacin (From Cipro) Allergy Intermediate Hives Verified 01/03/25 09:40 ibrutinib (From Imbruvica) Allergy dyspnea/diz Verified 01/03/25 09:40 zness rituximab Allergy Shortness Verified 01/03/25 09:40 of breath prochlorperazine (From AdvReac Unknown Dizziness Verified 01/03/25 09:40 Compazine) apixaban (From Eliquis) AdvReac Chest Verified 01/03/25 09:40 tightness Family History Father Diabetes Hypertension Mother Dementia Surgical History History of tonsillectomy History of bone marrow biopsy Social History household members: spouse Smoking Status: Former smoker Tobacco: How many years used: 15 how long ago did patient quit smoking: Many years ago alcohol intake: never substance use type: does not use caffeine: Yes Audit: Pertinent Findings HISTORY of Pertinent Findings History of Pertinent Findings: EKG Pertinent Findings EKG Perinent findings EKG Perinent findings: / 08:42 2024. Atrial fibrillation with rapid ventricular response. 152 bpm. Echo Pertinent Findings Echo (EF%) pertinent findings Echo (EF%) pertinent 01/03/25 08:42 findings: 09/06/2024. EF 60% . Right ventricular systolic pressure 44 mmHg. Echocardiogram in August 2024 showed aortic root measuring 3.9 cm. Chest CTA on 09/06/2024 showed no thoracic aortic aneurysm or dissection. Will continue to monitor. Will continue to focus on heart rate and blood pressure control. Pertinent Findings Consult pertinent findings: September 22, 2024. [facility] [employer]. 1. Paroxysmal atrial fibrillation?[id number] score is 1. Consider flecainide and cardioversion. 2. [id number] current medical therapy. 3. Dilated aortic root?acute-3.9 cm. Continue to monitor. 4. Severe anemia?acute-hemoglobin was 8.8 on September 19, 2024. Additional pertinent findings: Holter monitor July 08, 2024. Average rate 117 bpm with atrial fibrillation. Recommendation Anesthesia Recommendation Anesthesia recommendation: OPTIMIZED for anesthesia
[2025-01-17] VITALS (10 sets, daily range): BP systolic 103–121; BP diastolic 57–79; PULSE 66–73; RESP 16–20; TEMP 36.1–36.2; O2SAT 93–99; BMI 26.6
[2025-01-17] MEDS: Lactated Ringers 1,000 ML 15 ML IV (08:33)
--- NOTE | 2025-01-17 08:39 | PCM.PRE.AN2 ---
ASA Classification* ASA Classification ASA Classification: 3 Assessment & Plan Anesthesia* Anesthesia Assessment Anesthesia Assessment: Discussed sedation and/or anesthesia options, risks, benefits, and alternatives with patient/parents/legal guardian/POA. Questions invited. The patient/parents/legal guardian/POA seems to understand and agrees to proceed with anesthesia plan. Reviewed the physical assessment, medical history, allergy history and patient home medications list prior to surgery/procedure/anesthetic and documented any changes. Performed airway and anesthesia risk assessments. Procedural Plan Add'l anesthesia plan details: discussed possibility of periop afib, need for blood transfusion. patient understands and agreeable with plan Anesthesia Type Anesthesia Type: General (Discussed possibility of conversion to GA if any issues or concerns with MAC. Patient understands.) and MAC History Source History Obtained from:: Patient and Chart Anesthesia Focused Assessment* Temperature: 97.0 F Pulse Rate: 67 Blood Pressure: 121/79 Respiratory Rate: 20 Pulse Ox: 98 Oxygen Delivery Method: Room Air Airway Assessment Mouth opens: >3 cm Mallampati Score: II Teeth Condition: Intact Neck Range of motion (ROM): Full ROM Labs Anesthesia Preop lab: CBC WBC 0.7 K/mm3 (4.4-11.0) L* 01/16/25 11:08 01/16/25 RBC 2.48 M/mm3 (4.6-6.2) L 01/16/25 11:08 01/16/25 Hgb 7.1 g/dL (13.0-16.5) L 01/16/25 11:08 01/16/25 Hct 21.3 % (40-54) L 01/16/25 11:08 01/16/25 Plt Count 91 K/mm3 (150-450) L 01/16/25 11:08 01/16/25 CHEMISTRY Potassium 4.5 mmol/L (3.3-5.1) 12/26/24 11:12/26/24 Sodium 142 mmol/L (133-145) 12/26/24 11:12/26/24 Magnesium 2.2 mg/dL (1.5-2.2) 12/26/24 11:12/26/24 Phosphorus 3.7 mg/dL (2.5-4.9) 09/06/24 23:50 09/06/24 BUN 24 mg/dL (4-19) H 12/26/24 11:06 12/26/24 Creatinine 1.20 mg/dL (0.70-1.20) 12/26/24 11:06 12/26/24 Glucose 95 mg/dL (70-99) 12/26/24 11:06 12/26/24 TSH 1.590 uIU/mL (0.358-3.740) 09/07/24 05:50 09/07/24 COAG PT 16.3 SECONDS (11.7-14.9) H 09/06/24 20:19 09/06/24 Pre-Assessment Diagnosis/Proposed Procedure Planned Operative Procedure(s): (L) Insertion, Vascular Port Left poss Right Anesthesia History 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 When Was Last Pacemaker Check QUESTION #4 FULL TEXT: You/Your Family Experience fever (hyperthermia) with Anesthesia Any additional information?: No Last Oral Intake Last Oral intake: Last Oral Intake NPO since 20:00 01/17/25 08:09 Meds taken in AM with sips of water? 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 room supervisor Female No 01/03/25 08:14 HX of Motion Sickness Yes 01/03/25 08:14 HX of N/V After Surgery No 01/03/25 08:14 Non-Smoker Yes 01/03/25 08:14 Duration of Surgery greater No 01/03/25 08:14 than 60 minutes Number of Risk Factors 2 01/03/25 08:14 PONV Score Moderate Risk 01/03/25 08:14 Any additional information?: No Height & Weight Height & Weight: Anesthesia: Height & Weight Height 6 ft 2 in 01/17/25 08:09 Weight: 94 kg 01/17/25 08:09 Body Mass Index (BMI) 26.6 01/17/25 08:09 Respiratory Assessment Respiratory Assessment - sample room supervisor: Respiratory Tract Infection Hx - sample room supervisor Hx Respiratory Tract Infection No 01/03/25 08:14 STOP Sleep Apnea STOP Sleep Apnea - sample room supervisor: STOP Sleep Apnea - sample room supervisor Hx Hypertension Yes 01/13/25 08:13 Hx Sleep Apnea No 01/03/25 08:14 CPAP BIPAP Do you snore loudly (louder No 01/03/25 08:14 than talking or can be heard Do you often feel tired/ No 01/03/25 08:14 fatigued/ sleepy during daytime? Has anyone observed you stop No 01/03/25 08:14 breathing during sleep? STOP Results Negative 01/03/25 08:14 QUESTION #5 FULL TEXT : Do you snore loudly (louder than talking or can be heard through closed doors)? 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 Specify any problems Hx of Preganancy in last 3 N/A 01/03/25 08:14 Months Nurse Filling Out Transfusion VLEHMAN 01/03/25 08:14 & Questions: Date: 01/03/25 01/03/25 08:14 Time: 08:18 01/03/25 08:14 Patient unable to answer at this time (ie. confused, unrespo Any additional information?: No /Reproduction History /Reproductive History - sample room supervisor: /Reproductive Hx- sample room supervisor Hx Now No 01/03/25 08:14 Gestational Age (in weeks): EDC: Hx Hx Para Hx Section SAB No 01/03/25 08:14 Active Medications Active Medications: Current Medications Generic Name Dose Route Start Last Admin Trade Name Freq PRN Reason Stop Dose Admin Lactated Ringer's 1,000 mls @ 15 mls/hr 01/17/25 08:00 01/17/25 08:33 IV 15 mls/hr .Q48H CUBA Administration PFSH Medical History Encounter for education Acute myeloid leukemia Wears glasses History of leukemia Former smoker History of Holter monitoring History of echocardiogram Cardiology follow-up encounter History of irregular heartbeat MDS (myelodysplastic syndrome) Secondary pneumonia RSV (acute bronchiolitis due to respiratory syncytial virus) Atrial fibrillation with RVR Acute bronchitis Acute upper respiratory infection Hematuria Health care maintenance Dilated aortic root BPH (benign prostatic hyperplasia) Splenomegaly CLL (chronic lymphocytic leukemia) Dyspnea Infected wound Nonhealing surgical wound Thrombocytopenia due to drugs Neutropenia Thrombocytopenia Leukopenia Non Hodgkin's lymphoma Pain in left lower leg Neutropenic fever Hypoxia Pancytopenia Contact with and (suspected) exposure to other viral communicable diseases Tobacco abuse counseling Hypertension Anemia Chronic kidney disease (CKD) Pancytopenia Obesity Thrombocytopenia Paroxysmal supraventricular tachycardia (11/27/19) Near syncope (09/2019) Home Medications ?Medication ?Instructions ?Recorded ?Last Taken ?Type acetaminophen 500 mg tablet 500 mg PO Q6H PRN pain 10/14/23 01/15/25 History (Tylenol Extra Strength) diltiazem HCl 180 mg 180 mg PO DAILY 90 days #90 caps 09/22/24 01/17/25 Rx capsule,extended release 24 hr metoprolol tartrate 50 mg tablet 50 mg PO BID 90 days #180 tabs 09/22/24 01/17/25 Rx acyclovir 800 mg tablet 800 mg PO BID 11/25/24 01/17/25 History allopurinol 300 mg tablet 300 mg PO .COMPLEX #30 tabs 12/26/24 Unknown Rx Held on 01/03/25. Instructions: Ordered ondansetron 8 mg disintegrating 8 mg PO Q8H PRN nausea and 12/26/24 Unknown Rx tablet vomiting #30 tabs venetoclax 100 mg tablet 200 mg PO QDAY 12/29/24 Unknown History (Venclexta) Allergy/AdvReac Type Severity Reaction Status Date / Time ciprofloxacin (From Cipro) Allergy Intermediate Hives Verified 01/17/25 08:06 ibrutinib (From Imbruvica) Allergy dyspnea/diz Verified 01/17/25 08:06 zness rituximab Allergy Shortness Verified 01/17/25 08:06 of breath prochlorperazine (From AdvReac Unknown Dizziness Verified 01/17/25 08:06 Compazine) apixaban (From Eliquis) AdvReac Chest Verified 01/17/25 08:06 tightness Family History Father Diabetes Hypertension Mother Dementia Surgical History History of tonsillectomy History of bone marrow biopsy Social History household members: spouse Smoking Status: Former smoker Tobacco: How many years used: 15 how long ago did patient quit smoking: Many years ago alcohol intake: never substance use type: does not use caffeine: Yes Review of Systems (Anesthesia) ROS Narrative System reviewed and no additional complaints, except as documented. Physical Exam Const alert and oriented x3 Neck full ROM Resp normal respiratory effort and normal air movement Cardio regular rate and regular rhythm Back/Spine normal ROM Extremity full ROM Neuro oriented x3 and moves all extremities
--- NOTE | 2025-01-17 11:25 | PCM.HP.BLA ---
History and Physical Date of Admission: 01/17/25 Date of Service: 12/27/24 MR#: [id number] Acct: [id number] Name: DOMI ENAMORADO GENE Rep #: [id number] : 1965 Provider: Dr. Dalton Danielson MD Age/Sex: 59/M Location: [facility] [place] Status: Signed Intake Vital Signs 12/26/2510:04 12/27/2509:02 Height 6 ft 2 in 6 ft 2 in Weight: 216 lb 6 oz 217 lb BMI 27.8 27.8 BP 112/62 106/59 L Blood Pressure Location Rt brachial Rt brachial Position Sitting Sitting Respiration 18 18 Pulse 73 72 Pulse Source Monitor Temp 98 F Pulse Oximetry (%) 99 95 Oxygen Delivery Method room air room air Intake Visit Reasons: DISCUSS PORT Chief Complaint: discuss port String Laster Required: No Is patient in pain?: No Allergies ciprofloxacin (From Cipro) Allergy (Intermediate, Verified 12/27/24 10:02) Hivesibrutinib (From Imbruvica) Allergy (Verified 12/27/24 10:02) dyspnea/dizznessrituximab Allergy (Verified 12/27/24 10:02) Shortness of breathprochlorperazine (From Compazine) Adverse Reaction (Unknown, Verified 12/27/24 10:02) Dizzinessapixaban (From Eliquis) Adverse Reaction (Verified 12/27/24 10:02) Chest tightness Medications ?Medication ?Instructions ?Recorded ?Confirmed ?Type acetaminophen 500 mg tablet 500 mg PO Q6H PRN pain 10/14/23 12/27/24 History (Tylenol Extra Strength) diltiazem HCl 180 mg 180 mg PO DAILY 90 days #90 caps 09/22/24 12/27/24 Rx capsule,extended release 24 hr metoprolol tartrate 50 mg tablet 50 mg PO BID 90 days #180 tabs 09/22/24 12/27/24 Rx acyclovir 800 mg tablet 800 mg PO BID 11/25/24 12/27/24 History cefdinir 300 mg capsule 300 mg PO BID 11/25/24 12/27/24 History allopurinol 300 mg tablet 300 mg PO .COMPLEX #30 tabs 12/26/24 12/27/24 Rx lidocaine-prilocaine 2.5 %-2.5 % 1 applic topical ONCE PRN port 12/26/24 12/27/24 Rx topical cream access 30 days #30 grams ondansetron 8 mg disintegrating 8 mg PO Q8H PRN nausea and 12/26/24 12/27/24 Rx tablet vomiting #30 tabs Have you fallen in the past year?: No PFSH Medical History Encounter for education Acute myeloid leukemia Secondary pneumonia RSV (acute bronchiolitis due to respiratory syncytial virus) Atrial fibrillation with RVR Acute bronchitis Acute upper respiratory infection Hematuria Dyspnea Infected wound Nonhealing surgical wound Pain in left lower leg Hypoxia Wears glasses History of leukemia Former smoker History of Holter monitoring History of echocardiogram Cardiology follow-up encounter History of irregular heartbeat MDS (myelodysplastic syndrome) Health care maintenance Dilated aortic root BPH (benign prostatic hyperplasia) Splenomegaly CLL (chronic lymphocytic leukemia) Thrombocytopenia due to drugs Neutropenia Thrombocytopenia Leukopenia Non Hodgkin's lymphoma Neutropenic fever Pancytopenia Contact with and (suspected) exposure to other viral communicable diseases Tobacco abuse counseling Hypertension Anemia Chronic kidney disease (CKD) Pancytopenia Obesity Thrombocytopenia Paroxysmal supraventricular tachycardia (11/27/19) Near syncope (09/2019) Surgical History History of tonsillectomy History of bone marrow biopsy Family History Father Diabetes HypertensionMother Dementia Social History household members: spouse Smoking Status: Former smoker Tobacco: How many years used: 15 how long ago did patient quit smoking: Many years ago alcohol intake: never substance use type: does not use caffeine: Yes HPI HPI HPI: Patient is a 59-year-old male who returns for consideration of port placement after aborted port placement on the right due to inadvertent carotid entry and required cutdown/vascular repair on 11/25/2024. Patient shares that his oncology plan has been in flux a bit about when he may start chemotherapy but there seems to be a consensus that he will now begin low-dose chemotherapy in approximately 3 to 4 weeks. He shares that he is severely fatigued and that the blood transfusions do not seem to be working as effectively as they did previously. He does not believe his atrial fibrillation is playing into how he feels. He states that just taking 2-3 steps causes him to be winded. He notes that he is still trying to work through this exceptional fatigue. He is awaiting a blood transfusion tomorrow. ROS General General: Yes fatigue; No weight change, appetite, colon cancer, breast cancer or weakness HEENT HEENT: No difficulty swallowing, eye injury, eye surgery, swollen glands or hoarseness Endo Endocrine: No thyroid disease, diabetes mellitus, thyroid cancer, Hair loss, heat intolerance or cold intolerance Skin Skin: No rash or changing moles Breast Breast: No left breast lump, right breast lump, nipple discharge, breast pain, abnormal mammogram, abnormal US or breast enlargement Musc Musculoskeletal: No back problems, arthritis, rheumatoid arthritis, gout or joint pain Cardio Cardiovascular: Yes atrial fibrillation; No murmur, pacemaker, heart disease, high blood pressure, heart attack, heart stent, palpitations, shortness of breath with exertion or chest pain Psych Psychiatric: No depression, anxiety or hearing voices Resp Respiratory: Yes shortness of breath, No sleep apnea, Yes cough, No COPD, No asthma, No emphysema and No wheezing Gastro Gastrointestinal: No abdominal pain, No nausea or vomiting, No diarrhea, No constipation, No blood in stool, No acid reflux, No hemorrhoids, No ulcers, No gallbladder problem and No black,tarry stools Raciel Hematologic: No blood thinners, Yes blood disorders, No bleeding, Yes anemia and No blood clots Neuro Neurologic: No system reviewed and no additional complaints, except as documented, No as per HPI, No abnormal gait, No abnormal hearing, No abnormal movements, No abnormal speech, No behavioral changes, No burning sensations, No confusion, No convulsions, No disequilibrium, No dizziness, No localized weakness, No frequent falls, No headache(s), No lack of coordination, No loss of vision, No memory loss, No numbness, No other visual disturbances, No radicular pain, No restless legs, No sensory deficit, No syncope, No tingling, No tremor(s), No weakness and No other Exam Const General: cooperative Orientation: alert, awake and oriented x3 Neck Other: Well-healed neck incision with some adherent surgical glue that is removed and reveals nicely apposed skin edges. There is a spitting suture knot at the superior aspect of the incision that is sharply removed. Ultrasound exam was performed the patient's neck and I find a moderate amount of scar tissue encasing the right internal jugular vein causing some focal narrowing but the vessel is patent with Doppler flow. Ultrasound of the left neck shows widely patent left internal jugular vein. Chest Other: Well-healed transverse left upper chest incision Assessment and Plan Assessment and Plan (1) Acute myeloid leukemia: Status: Acute Comment: Patient is 59-year-old male with AML and associated pancytopenia who requires durable venous access for administration of chemotherapy as well as lab checks and transfusions. Unfortunately, attempt at initial port placement was complicated by extravasation of my guidewire during the procedure resulting in cannulation of the right carotid artery. Patient has done well following this procedure and is well-healed on exam. He does have some persistent scar tissue buildup around his right internal jugular vein and is for this reason?as well as the foreseeable scar tissue with tunneling?that I recommended we proceed with a left sided port placement. The details are for matter to patient from his prior evaluation and he denies any additional questions. Plan: Left possible right internal jugular Port-A-Cath placement (2) Injury of right internal jugular vein: Status: Acute Comment: s/p open simple repair (3) Injury of right carotid artery: Status: Acute Comment: s/p open simple repair I have examined the patient the following changes are noted: Patient has largely remained in a stable state of health, however, oncology did ask that we leave his port that is due to be placed today accessed for planned transfusion tomorrow. Rationale in the procedure for this were discussed with patient. Consents were reviewed. Will now proceed to the operating room for left possible right Port-A-Cath insertion.
[2025-01-17] MEDS: Cefazolin 2 GM in 0.9% Normal Saline (100mL Bag) 100 ML IV (12:00)
[2025-01-17] MEDS: Bupiv/Epi 0.25% 30 ML Vial (13:43)
--- NOTE | 2025-01-17 13:55 | PCM.OPRPT ---
Procedures Cardiovascular CF Procedures [id number]: [id number] Insert tunneled cv cath Operative Report (Standard) Operative Information Date of Procedure: 01/17/25 Pre-Operative Diagnosis: Acute myeloid leukemia requiring durable venous access Post-Operative Diagnosis: Same Surgery/Procedure Performed: Ultrasound and fluoroscopic guided placement of left internal jugular Port-A-Cath public safety telecommunicator: No Type of Anesthesia: MAC/Supplemental RN Documented Start/Stop Times: Operation Date: 01/17/25 09:15 Case Time Into Pre-Op 01/17/25 07:48 Anesthesia Start 01/17/25 11:50 Into Room 01/17/25 11:50 Out of Pre-Op 01/17/25 11:50 Procedure Start 01/17/25 12:16 Procedure End 01/17/25 13:55 Anesthesia End 01/17/25 14:01 Out of Room 01/17/25 14:01 Into Recovery 01/17/25 14:03 Out of Recovery 01/17/25 14:42 Into Phase II Recovery 01/17/25 14:43 Out of Phase II 01/17/25 15:13 Procedure Start Time: 12:16 Procedure Stop Time: 13:55 Select all DRAINS/GRAFTS/IMPLANTS that apply: Implanted device (8 Turkish PowerPort ISP MRI implantable port) Implanted device details: Reference [id number], lot [id number] Estimated Blood Loss: 10 Specimen collected: No Description of surgery: After appropriate identification in the preoperative holding area the patient was brought to the operating room. There he was administered preoperative antibiotics and positioned supine on the operating room table. Once sedation was begun, the upper chest and lower cervical region were prepped and draped in usual sterile fashion. A formal timeout was then conducted to confirm both the patient and procedure. Ultrasound was used to localize the left internal jugular vein. Then a wheal of local anesthetic was raised superficially in this location and the vein was accessed with 2 attempts (the first attempt resulted in a wire curling back upon itself) under direct ultrasound guidance using a Seldinger technique to place a guidewire. The position of the guidewire was confirmed with fluoroscopy. Next the position of the port pocket was determined and again local anesthetic was used to anesthetize the area of both the pocket and the tunneling cephalad. A transverse incision approximately 3 cm in width was made down through the subcutaneous tissue. Selective electrocautery was used to obtain hemostasis. Then with blunt dissection the port pocket was developed. The catheter was connected to the tunneler and was tunneled up to the position of the guidewire. Here, under fluoroscopy, the dilator and peel-away sheath were placed over the guidewire and the guidewire was removed. The catheter length was estimated based on the external placement of a hemostat to approximate the level of the leora, the right main bronchus, and the cavoatrial junction. The catheter was then fed into the sheath and slowly the sheath was peeled away as the catheter was inserted fully into the neck. However, upon reexamination the catheter appeared as though it doubled back upon itself rather than feeding antegrade into the superior vena cava. Upon making this observation I placed a 035 angled Glidewire through the catheter and attempted to manipulate the wire back into the SVC so the catheter could then in turn be advanced as well using live fluoroscopy. Unfortunately, this effort was initially unsuccessful and I sought assistance with vascular surgery. In the meantime I requested a change of the C arm in order to improve our [id number]. As I saw to orient vascular surgery with our position intravascularly a new series of fluoroscopy images was taken and this time showed that the catheter had appropriately fallen into its position approaching the right atrium. Therefore, I simply advanced the catheter to the border with the right atrium and removed the guidewire. Back in the chest the excess catheter was trimmed and the port was connected to the catheter. The port was tied into the pocket using 3-0 Vicryl. Function was then tested using sterile saline on a Betts needle. It was locked with 3 mL of heparinized saline (concentration 50U/5mL). The port pocket was closed with a deep dermal stitch using a running 3-0 Vicryl followed by 4-0 Monocryl subcuticular stitch. The 1 cm incision in the neck was closed with a single interrupted subcuticular stitch using 4-0 Monocryl. Dermabond was applied as a dressing. Then the port was accessed with a new Betts needle in the standard connected tubing. This access was tested with aspiration and flushing of the connected syringe which I did so these and approximately 2 milliliters of additional injectable heparin was used to lock the access. This access was then dressed with a sterile 4 x 4 gauze and Tegaderm to hold the ensemble in place but prevent pressure to the skin from the plastic portions of the access ensemble. Patient was then aroused from the sedation and taken to PACU for ongoing recovery were a portable chest x-ray was obtained to confirm port positioning and exclude any pneumothorax. Surgical Findings: ? Challenging navigation of the SVC/brachiocephalic vein confluence Complications Complications: No
--- NOTE | 2025-01-17 13:58 | DCINST_ITS ---
Discharge Instructions Diet Discharge Diet: No restrictions Activity Discharge Activity: May Shower May shower in (days): 1 Ice area for (Minutes): 20 Additional Activity Instructions:: Limit the activity by the nearest upper extremity for 48 hours postop Dressing / Incision Call your doctor if your incision/area has: Increased Pain/ Swelling, Increased Redness, Foul Smelling Discharge and Swelling at the incision site Call your doctor if you observe: Fever of 101 or Higher Remove Dressing in: do not remove dressing (Dermabond (surgical glue) expected to dissolve spontaneously within 7 to 10 days postop using regular showering) Cleanse incision/area with: Soap & Water Follow Up Care Test Results: Test results from this visit will be discussed in further detail at your follow- up appointment, if applicable. Discharge Plan Admission Primary Reason for Your Visit: Port placement Attending Provider: Dalton Danielson Primary Care Provider: Jaquelin Dexter Instructions Print Language: Turkish Discharge Orders/Prescriptions Prescriptions: Continued acetaminophen [Tylenol Extra Strength] 500 mg tablet 500 mg PO Q6H PRN (Reason: pain ) diltiazem HCl 180 mg capsule,extended release 24hr 180 mg PO DAILY 90 Days Qty: 90 3RF metoprolol tartrate 50 mg tablet 50 mg PO BID 90 Days Qty: 180 3RF ondansetron 8 mg tablet,disintegrating 8 mg PO Q8H PRN (Reason: nausea and vomiting) Qty: 30 1RF allopurinol 300 mg tablet 300 mg PO .COMPLEX Qty: 30 0RF Rx Instructions: 300 mg orally daily; start 3 days prior to Venclexta acyclovir 800 mg tablet 800 mg PO BID Venclexta 100 mg tablet 200 mg PO QDAY Referrals / Follow Up: Jaquelin Dexter MD [Primary Care Provider] - Disposition Disposition (needs filled in before D/C Order can be placed): Home, Self Care
--- NOTE | 2025-01-17 14:04 | PCM.POST.ANE ---
Anesthesia: Postop Eval I Current Vital Signs Temperature: 97.2 F Pulse Rate: 72 Blood Pressure: 115/67 Respiratory Rate: 18 Pulse Ox: 94 Assessment Airway patent: Yes Spontaneous unlabored respirations: Yes nausea: No Vomiting: No Anesthesia Complication: No Fluid Hydration Crystalloid volume administer (ml): 800 Total IV fluid infused: 800 Progress Note Anesthesia document: Postop Eval 1 completed: Yes
--- NOTE | 2025-01-17 14:11 | RAD_ITS ---
PROCEDURE: CXR FOR LINE PLACEMENT 01/17/2025 REASON FOR EXAM: STATUS POST LINE PLACEMENT TECHNIQUE: CXR FOR LINE PLACEMENT COMPARISON: Chest x-ray of 11/25/2024. RAD/CXR for Line Placement IMPRESSION: A left subclavian central venous catheter with port is now in place, with tip p rojecting in the expected location of the right atrium. No pneumothorax is noted. Lungs appear clear. The cardiomediastinal silhouette is stable, without evidence of cardiomegaly. Reading Location: [place] [id number]
--- NOTE | 2025-01-17 15:37 | POSTOPAN2_ITS ---
Anesthesia Postop Eval I Sum Postop Eval Completion status Anesthesia document: Postop Eval 1 completed: Yes Anesthesia Postop Eval I Summary Anesthesia Postop Eval I Summary: Anesthesia Postop Eval I: Assessment Summary Airway patent Yes 01/17/25 14:04 DURABILITY [email or web address] Spontaneous unlabored Yes 01/17/25 14:04 DURABILITY ENGINEER.CSIR respirations Mental status nausea No 01/17/25 14:04 DURABILITY ENGINEER.CSIR Vomiting No 01/17/25 14:04 DURABILITY ENGINEER.CSIR Anesthesia Postop Eval I: Fluid Summary Crystalloid volume administer 800 01/17/25 14:04 DURABILITY ENGINEER.CSIR (ml) Colloids volume administered ( ml) Blood Product volume administered (ml) Total IV fluid infused 800 01/17/25 14:04 DURABILITY ENGINEER.CSIR Anesthesia Postop Eval I: Summary Notes Anesthesia Complication No 01/17/25 14:04 DURABILITY ENGINEER.CSIR Anesthesia Complication Comment: Post-operative progress note Anesthesia: Postop Eval II Evaluation Mental status: Awake and Calm Pain Level: 2 nausea: No Vomiting: No Complications Anesthesia Complication: No
--- NOTE | 2025-01-17 15:37 | PCM.POSTANE2 ---
Anesthesia Postop Eval I Sum Postop Eval Completion status Anesthesia document: Postop Eval 1 completed: Yes Anesthesia Postop Eval I Summary Anesthesia Postop Eval I Summary: Anesthesia Postop Eval I: Assessment Summary Airway patent Yes 01/17/25 14:04 PRECISION THREAD GRINDER OPERATOR.CSIR Spontaneous unlabored Yes 01/17/25 14:04 PRECISION THREAD GRINDER OPERATOR.CSIR respirations Mental status nausea No 01/17/25 14:04 PRECISION THREAD GRINDER OPERATOR.CSIR Vomiting No 01/17/25 14:04 PRECISION THREAD GRINDER OPERATOR.CSIR Anesthesia Postop Eval I: Fluid Summary Crystalloid volume administer 800 01/17/25 14:04 PRECISION THREAD GRINDER OPERATOR.CSIR (ml) Colloids volume administered ( ml) Blood Product volume administered (ml) Total IV fluid infused 800 01/17/25 14:04 PRECISION THREAD GRINDER OPERATOR.CSIR Anesthesia Postop Eval I: Summary Notes Anesthesia Complication No 01/17/25 14:04 PRECISION THREAD GRINDER OPERATOR.CSIR Anesthesia Complication Comment: Post-operative progress note Anesthesia: Postop Eval II Evaluation Mental status: Awake and Calm Pain Level: 2 nausea: No Vomiting: No Complications Anesthesia Complication: No
== END 2025-01-17 15:14 | disposition home or self-care (01) ==
LOC: SDC 07:40 → AC 07:42
PROVIDERS: PCP Internal Medicine; Referring Provider Surgery; Visit Provider Surgery
PROC: (CPT 36561; principal; 2025-01-17 09:00)
DX: C92.00 Acute myeloblastic leukemia, not having achieved remission (principal); I48.0 Paroxysmal atrial fibrillation; I10 Essential (primary) hypertension; I77.810 Thoracic aortic ectasia; Z79.899 Other long term (current) drug therapy; Z87.891 Personal history of nicotine dependence
CPT/HCPCS: 36561; 71045; 77001; C1894; C1769; C1788

== ENCOUNTER 2025-02-08 12:30 | Inpatient (IN) | payer OTHER, SELFPAY ==
[2025-02-08] VITALS (21 sets, daily range): BP systolic 89–125; BP diastolic 53–86; PULSE 89–140; RESP 17–25; TEMP 37.1–38.6; O2SAT 90–100; BMI 25.8; BMI 28.6
--- NOTE | 2025-02-08 12:42 | EKG12_ITS ---
Test Reason : FEVER,CHEMO Blood Pressure : */* mmHG Vent. Rate : 94 BPM Atrial Rate : 94 BPM P-R Int : 164 ms QRS Dur : 84 ms QT Int : 342 ms P-R-T Axes : 31 33 43 degrees QTcB Int : 427 ms Normal sinus rhythm Normal ECG Confirmed by SHAHID AMADOR, VINCE ([id number]), scientific publications editor ROLANDA FIELDS ([id number]) on 02/10/2025 1:14:43 PM Referred By: Molly Dillon Confirmed By: VINCE KEY MD
[2025-02-08 13:00] LABS: Mucous, Urine 0 SEEN /hpf (<or=2+); Red Blood Cells-Urine 0 SEEN /hpf (0-5); Squamous Epithelial Cells - UA 0 SEEN /hpf (0-5)
[2025-02-08] MEDS: 0.9% Normal Saline (1000mL) 1,000 ML 999 ML IV ×2 (13:09→20:22)
[2025-02-08] MEDS: Cefepime HCl 2 GM in 0.9% Normal Saline (100mL MB+) 100 ML IV ×2 (13:11→21:41)
[2025-02-08 13:16] LABS: Color, Urine Yellow (Yellow); Glucose, Dipstick 50 mg/dl (Normal); Ketone-Dipstick Negative (Negative); Leukocyte Esterase-Dipstick 25 /ul (Negative); Nitrite-Dipstick Negative (Negative); Occult Blood-Urine 50 /ul (Negative); Protein-Dipstick 30 mg/dl (Negative); Specific Gravity, Urine 1.010 (1.002-1.030); Urine Bilirubin Dipstick 1 mg/dL (Negative)
--- NOTE | 2025-02-08 13:27 | CT_ITS ---
PROCEDURE: ABDOMEN/PELVIS W IV CONT ONLY 02/08/2025 REASON FOR EXAM: CONSTIPATION, FEVER TECHNIQUE: ABDOMEN/PELVIS W IV CONT ONLY Coronal and Sagittal reconstruction series were provided. CONTRAST: Isovue 370 VOLUME: 100 mL One or more dose reduction techniques were used (e.g., Automated exposure control, adjustment of the mA and/or kV according to patient size, use of iterative reconstruction technique. RADIATION DOSE SUMMARY: DLP: 1100 mGycm COMPARISON: CT abdomen pelvis 09/17/2023. FINDINGS: Lung bases: Catheter partially visualized terminating within the right atrium. Bibasilar atelectasis/scarring. Liver: The liver is normal in size without suspicious hepatic mass. The major portal veins are patent. No biliary ductal dilation. Gallbladder: No radiopaque stones within the gallbladder. Spleen: Mild splenomegaly measuring 15.7 cm. Pancreas: Unremarkable. Adrenals: No adrenal mass. Kidneys: Small bilateral renal cysts and additional hypodensities. No hydronephrosis or nephrolithiasis. Bladder: Moderate bladder distention. Reproductive Organs: Dystrophic calcifications within the prostate gland. Bowel: The bowel loops are nondilated. No ascites or pneumoperitoneum. Normal appendix. Lymph nodes: No suspicious lymph node enlargement. Vasculature: Mild mixed plaque of the aortoiliac vessels. Bones: Mild thoracolumbar spondylosis. CT/Abdomen/Pelvis W IV Cont ONLY IMPRESSION: 1. No acute abdominopelvic finding. 2. Mild splenomegaly, improved since prior examination. Reading Location: [id number]
--- NOTE | 2025-02-08 13:55 | EX.ED.DYSGE1 ---
HPI History of Present Illness Chief Complaint: Fever Informant: patient and other (Oncology) Narrative Narrative: Patient is a 59-year-old male with history of acute myeloid leukemia, proximal supraventricular tachycardia, pancytopenia and proximal atrial fibrillation (states he does not tolerate anticoagulation). He is presenting from infusion center for fever. Temperature of 100.5 there. He had lab work this morning that showed neutropenia as well as anemia with a hemoglobin of 6.9 and a thrombocytopenia with platelet count of 35. I spoke with nurse practitioner states that he is on oral chemotherapy as well as IV. He is on cycle 1 day 10 per her report. Recommend admission, cefepime for neutropenic fever protocol and needs 1 unit of packed red blood cells for transfusion. Patient notes he has not been feeling well the past few days. Tells me his biggest complaint has been that he is been very constipated. He did have bowel movements to a lesser extent earlier but states he feels like there is a lot of gravel in there and is very backed up. He states that prior to his chemo he was extremely regular. Has had a mild cough. Is not aware of fever or chills until he is found have a fever today. Denies any urinary symptoms. Denies any nausea or vomiting. No other complaints or concerns reported at this time. [facility] Medical History Nocturia Urinary frequency Encounter for education Acute myeloid leukemia Wears glasses History of leukemia Former smoker History of Holter monitoring History of echocardiogram Cardiology follow-up encounter History of irregular heartbeat MDS (myelodysplastic syndrome) Secondary pneumonia RSV (acute bronchiolitis due to respiratory syncytial virus) Atrial fibrillation with RVR Acute bronchitis Acute upper respiratory infection Hematuria Health care maintenance Dilated aortic root BPH (benign prostatic hyperplasia) Splenomegaly CLL (chronic lymphocytic leukemia) Dyspnea Infected wound Nonhealing surgical wound Thrombocytopenia due to drugs Neutropenia Thrombocytopenia Leukopenia Non Hodgkin's lymphoma Pain in left lower leg Neutropenic fever Hypoxia Pancytopenia Contact with and (suspected) exposure to other viral communicable diseases Tobacco abuse counseling Hypertension Anemia Chronic kidney disease (CKD) Pancytopenia Obesity Thrombocytopenia Paroxysmal supraventricular tachycardia (11/27/19) Near syncope (09/2019) Home Medications ?Medication ?Instructions ?Recorded ?Last Taken ?Type acetaminophen 500 mg tablet 500 mg PO Q6H PRN pain 10/14/23 01/15/25 History (Tylenol Extra Strength) diltiazem HCl 180 mg 180 mg PO DAILY 90 days #90 caps 09/22/24 02/07/25 Rx capsule,extended release 24 hr acyclovir 800 mg tablet 800 mg PO BID 11/25/24 02/08/25 History allopurinol 300 mg tablet 300 mg PO .COMPLEX #30 tabs 12/26/24 02/07/25 Rx ondansetron 8 mg disintegrating 8 mg PO Q8H PRN nausea and 12/26/24 02/07/25 Rx tablet vomiting #30 tabs venetoclax 100 mg tablet 200 mg PO QDAY 12/29/24 02/07/25 History (Venclexta) metoprolol tartrate 50 mg tablet 25 mg (1/2 x 50 mg) PO BID 90 days 01/19/25 02/08/25 Rx #90 tabs Allergy/AdvReac Type Severity Reaction Status Date / Time ciprofloxacin (From Cipro) Allergy Intermediate Hives Verified 02/08/25 12:33 ibrutinib (From Imbruvica) Allergy dyspnea/diz Verified 02/08/25 12:33 zness rituximab Allergy Shortness Verified 02/08/25 12:33 of breath prochlorperazine (From AdvReac Unknown Dizziness Verified 02/08/25 12:33 Compazine) apixaban (From Eliquis) AdvReac Chest Verified 02/08/25 12:33 tightness Family History Father Diabetes Hypertension Mother Dementia Surgical History History of tonsillectomy History of bone marrow biopsy Social History household members: spouse Smoking Status: Former smoker Tobacco: How many years used: 15 how long ago did patient quit smoking: Many years ago alcohol intake: never substance use type: does not use caffeine: Yes ROS ROS ED Constitutional Constitutional ED: Reports fever(s) ENT ENT ED: Denies rhinorrhea or sore throat Cardiovascular Cardiovascular: Denies chest pain Respiratory/Chest Respiratory/Chest: Reports cough, dyspnea and other Details: Mild shortness of breath?attributes this to his anemia Gastrointestinal Gastrointestinal: Reports constipation; Denies abdominal pain, melena, nausea or vomiting Genitourinary Genitourinary ED: Denies dysuria or hematuria Musculoskeletal Musculoskeletal: Reports myalgias Integumentary Denies rash Neurologic Neurologic: Reports weakness Hematologic/Lymphatic Hematologic/Lymphatic: Reports easy bleeding and easy bruising EXAM Physical Exam Const Vital Signs: 02/08/25 12:31 02/08/25 12:49 02/08/25 13:33 Temperature 100.1 F H 100 F H Temperature Source Oral Oral Pulse Rate 89 97 Respiratory Rate 18 24 H Respiratory Effort Normal Respiratory Pattern Normal Blood Pressure 97/59 L 118/64 Blood Pressure Mean 71 82 Blood Pressure Source Blood Pressure Position Blood Pressure Location Pulse Ox 98 97 Oxygen Delivery Method Room Air Room Air 02/08/25 14:00 02/08/25 15:32 02/08/25 15:47 Temperature 100 F H 99.5 F H 101.4 F H Temperature Source Oral Oral Oral Pulse Rate 100 111 H 102 H Respiratory Rate 20 H 22 H 22 H Respiratory Effort Respiratory Pattern Blood Pressure 119/69 125/86 H 112/82 H Blood Pressure Mean 85 99 92 Blood Pressure Source Monitor Monitor Blood Pressure Position Semi-Fowlers Semi-Fowlers Blood Pressure Location Right Arm Right Arm Pulse Ox 95 95 100 Oxygen Delivery Method Room Air Room Air Room Air Positive well nourished and well developed General Appearance ED: well developed, diaphoretic and pallor HEENT Reports dry mucous membranes Mouth ED: Yes dry mucous membranes Mouth: dry mucous membranes Eyes PERRL General Eye ED: Yes pale conjunctiva Neck supple Neck Narrative: No meningeal signs Chest Wall inspection of chest normal and palpation of chest normal Chest Narrative: Port present left anterior chest wall Resp normal respiratory effort and clear to auscultation bilaterally Cardio regular rhythm Rate: tachycardic GI normal to inspection, nondistended, normoactive bowel sounds, non-tender and non-distended GI Narrative: Chaperoned rectal exam performed. Small amount of hard brown stool present. No fecal impaction at this time. Partially thrombosed external hemorrhoid present. No active bleeding. Extremity normal to inspection Extremity Narrative: 2+ pretibial bilateral pitting edema present Neuro oriented x3 Sensorium / Orientation: alert Motor Exam: general weakness Skin no rashes or lesions noted and no wounds General Skin Exam: pallor MDM MDM MDM Narrative Medical decision making narrative: Patient evaluated for neutropenic fever as well as anemia. Outpatient labs from earlier today reviewed which showed a white blood cell count of 0.1, anemia with a hemoglobin of 6.9, platelet count of 36 and absolute neutrophil count of 0. He also had a BMP which showed a creatinine of 1.44 (creatinine was 0.952 days ago). Normal anion gap and normal bicarb. Chloride mildly low at 96. Neutropenic fever order set, blood cultures and urinalysis obtained. Given his report of constipation which is quite usual for him will also obtain CT of the abdomen pelvis to rule out colitis or other intra-abdominal pathology that could be causing his fever. Cefepime is ordered. Will speak with hospitalist for admission. Patient is given IV fluids as clinically appears dehydrated and also has acute renal insufficiency on his lab work. CT does show enlargement of the bladder. Patient is only able to urinate large amounts. Lay catheter is placed suspect he has urinary retention which could be contributing to his sensation of constipation as well. In addition he has a mildly elevated creatinine as well as lactic acidosis. Given IV fluids in the emergency room. Lab Data Attestation: I reviewed the patient's lab results. Labs: Laboratory Results - last 24 hr 02/08/25 02/08/25 12:49 13:26 PT 17.7 H INR 1.4 APTT 29.4 Lactic Acid 2.2 H* Total Bilirubin 2.73 H Direct Bilirubin 1.77 H AST 41 H ALT 57 H Alkaline Phosphatase 117 Total Protein 5.3 L Albumin 3.1 L Globulin 2.2 Urine Color Yellow Urine Clarity Clear Urine pH 6.0 Ur Specific [place] 1.010 Urine Protein 30 H Urine Glucose (UA) 50 H Urine Ketones Negative Urine Occult Blood 50 H Urine Nitrite Negative Urine Bilirubin 1 H Urine Urobilinogen 8 H Ur Leukocyte Esterase 25 H Urine RBC 0 SEEN Urine WBC 0-5 SEEN Ur Squamous Epith Cells 0 SEEN Urine Bacteria 0 SEEN Hyaline Casts 0-5 SEEN Urine Mucus 0 SEEN Blood Type O POSITIVE Antibody Screen NEGATIVE Crossmatch See Detail Radiography Chest X-Ray - ED: 2 View, Read by ED Physician, Read by Radiologist and No Acute Disease Diagnostic Testing: Clinical Impression(s) from Imaging Studies Abdomen/Pelvis CT 02/08/25 13:27 IMPRESSION: 1. No acute abdominopelvic finding. 2. Mild splenomegaly, improved since prior examination. Reading Location: [facility] Chest X-Ray 02/08/25 14:40 IMPRESSION: NO ACUTE FINDINGS. Reading Location: [facility] Rhythm Strip Rhythm Strip: Sinus Rhythm Rate: 94 Ectopy: None EKG Initial EKG: Attestation: I personally reviewed and interpreted this EKG as follows: Interpretation: Sinus Rhythm Comments: Normal sinus rhythm rate of 94 bpm Normal axis Normal intervals Normal ST segments Management Discussion w/another healthcare provider: Hospitalist and Plaster Tender (oncology- Aparna ) Discharge Plan Triage Chief Complaint: Fever ED Provider: Molly Dillon Dx/Rx/DC Orders Clinical Impression: Pancytopenia, Neutropenic fever, Acute urinary retention, Elevated serum creatinine, Acute on chronic anemia Prescriptions: No Action acetaminophen [Tylenol Extra Strength] 500 mg tablet 500 mg PO Q6H PRN (Reason: pain ) diltiazem HCl 180 mg capsule,extended release 24hr 180 mg PO DAILY 90 Days Qty: 90 3RF ondansetron 8 mg tablet,disintegrating 8 mg PO Q8H PRN (Reason: nausea and vomiting) Qty: 30 1RF allopurinol 300 mg tablet 300 mg PO .COMPLEX Qty: 30 0RF Rx Instructions: 300 mg orally daily; start 3 days prior to Venclexta metoprolol tartrate 50 mg tablet 25 mg PO BID 90 Days Qty: 90 3RF acyclovir 800 mg tablet 800 mg PO BID Venclexta 100 mg tablet 200 mg PO QDAY Primary Care Provider: Jaquelin Dexter Referrals: Jaquelin Dexter MD [Primary Care Provider] - Print Language: Estonian Disposition Disposition: Acute Care Hospital [facility]
[2025-02-08 14:11] LABS: Prothrombin Time (Protime)PT. 17.7 SECONDS (11.7-14.9)
[2025-02-08 14:12] LABS: Partial Thromboplast Time 29.4 Seconds (24.1-36.2)
--- NOTE | 2025-02-08 14:40 | RAD_ITS ---
PROCEDURE: CHEST PA AND LATERAL 02/08/2025 REASON FOR EXAM: FEVER TECHNIQUE: CHEST PA AND LATERAL COMPARISON: Chest radiograph 01/17/2025. FINDINGS: Hardware: Stable left port with tip overlying the right atrium. Heart: The heart size is normal. Mediastinum: The mediastinal contour is stable. Lungs: No focal consolidation, pleural effusion or pneumothorax. Bibasilar atelectasis. Bones: Degenerative changes are identified within the thoracic spine. RAD/Chest PA and Lateral IMPRESSION: NO ACUTE FINDINGS. Reading Location: [id number]
[2025-02-08 14:57] LABS: AST(SGOT) 41 U/L (<=37); Alanine Aminotransfer ALT/SGPT 57 U/L (<=46); Albumin, Serum 3.1 g/dL (3.4-4.8); Alkaline Phosphatase 117 U/L (40-129); Bilirubin, Direct 1.77 mg/dL (0.00-0.30); Globulin 2.2 g/dL (2.2-4.2)
--- NOTE | 2025-02-08 15:21 | CASEMGMT ---
Care Management Face to Face with patient for initial transition planning/care coordination assessment in the ED.? This quality analyst/technical writer introduced self and role at [facility]. Patient alert and oriented. Patient willing to participate in assessment and is able to answer all questions appropriately.? Care providers, pharmacy, and demographics verified. Admitting Diagnosis: ?Fever Other diagnosis history: ?acute myeloid leukemia, tachycardia, pancytopenia, afib PCP: ?Jaquelin Specialists: ?[facility]; Cardiology, [place]; Oncologist Preferred Pharmacy: [facility] Insurance: ?[facility] Prescription Benefit: yes Living Will/HPOA: completed LNOK: ?, Aretha Living Arrangements: ?Patient lives with in [facility].? Reports to being independent with ADLs and IADLs Transportation: ?patient drives, as needed DME: ?None HHC: ?None SNF/Rehab: ?None Community Resources: ?None Behavioral Health History: ?None Patient goals: Patient wishes to discharge home, denies need for home health care at this time. Patient denies any further needs or concerns at this time. Disposition Plan: admission to acute; RN CM/SW to follow for discharge planning needs that may arise. Angela Booth, ELECTRIC ORGAN ASSEMBLER, VOCATIONAL TECHNICAL EDUCATION DIRECTOR
--- NOTE | 2025-02-08 16:08 | PCM.HP.STD ---
HPI - General General Date of Admission: 02/08/25 Date of Service: 02/08/25 Chief Complaint: Fever HPI Narrative DOMI ENAMORADO, is a 59-year-old male history of AML, paroxysmal SVT, pancytopenia, paroxysmal A-fib presented to [facility] ED 02/08/2025 from the infusion center for a temperature of 100.5. He had lab work this morning which showed neutropenia, anemia with hemoglobin of 6.9 and thrombocytopenia with platelet count of 35. Patient presently on oral chemo and IV and is on a 1 day every 10 cycle. They recommended admission with 1 unit of packed red blood cells and cefepime for neutropenic fever. Patient has felt generally unwell for several days. In the ED temp 100.1, heart rate 89, blood pressure 97/56, heart rate 18 and pulse ox 98% on room air. CBC earlier in the day with white blood cell count of 0.1, hemoglobin 6.9 and platelet count of 36 with an ANC of 0. Patient also had a creatinine of 1.44 when it was 0.95 2 days ago. Patient pancultured in the ED. UA does not appear infectious. CT abdomen obtained with no infectious etiology identified. Patient given IV fluids and cefepime and hospitalist contacted for admission. Patient evaluated bedside. He reports history as above, the past 5 days he has had constipation and has rectal pain due to difficulty going, it was to the extent that overnight he could not pee. Has some abdominal discomfort with this but no overt pain. Has some shortness of breath which she reports happens when his blood counts are low and some leg swelling which she said is due to his treatments. Has had a little bit of cough over the past few days. No nausea or vomiting, no other new or acute complaints. After patient evaluated he did have a liver profile that came back with total bili 2.73, direct bili 1.77 with an AST of 41 and ALT of 57. Lactic acid 2.2 and chest x-ray with no acute process. [facility] Medical History Nocturia Urinary frequency Encounter for education Acute myeloid leukemia Wears glasses History of leukemia Former smoker History of Holter monitoring History of echocardiogram Cardiology follow-up encounter History of irregular heartbeat MDS (myelodysplastic syndrome) Secondary pneumonia RSV (acute bronchiolitis due to respiratory syncytial virus) Atrial fibrillation with RVR Acute bronchitis Acute upper respiratory infection Hematuria Health care maintenance Dilated aortic root BPH (benign prostatic hyperplasia) Splenomegaly CLL (chronic lymphocytic leukemia) Dyspnea Infected wound Nonhealing surgical wound Thrombocytopenia due to drugs Neutropenia Thrombocytopenia Leukopenia Non Hodgkin's lymphoma Pain in left lower leg Neutropenic fever Hypoxia Pancytopenia Contact with and (suspected) exposure to other viral communicable diseases Tobacco abuse counseling Hypertension Anemia Chronic kidney disease (CKD) Pancytopenia Obesity Thrombocytopenia Paroxysmal supraventricular tachycardia (11/27/19) Near syncope (09/2019) Home Medications ?Medication ?Instructions ?Recorded ?Last Taken ?Type acetaminophen 500 mg tablet 500 mg PO Q6H PRN pain 10/14/23 01/15/25 History (Tylenol Extra Strength) diltiazem HCl 180 mg 180 mg PO DAILY 90 days #90 caps 09/22/24 02/07/25 Rx capsule,extended release 24 hr acyclovir 800 mg tablet 800 mg PO BID 11/25/24 02/08/25 History allopurinol 300 mg tablet 300 mg PO .COMPLEX #30 tabs 12/26/24 02/07/25 Rx ondansetron 8 mg disintegrating 8 mg PO Q8H PRN nausea and 12/26/24 02/07/25 Rx tablet vomiting #30 tabs venetoclax 100 mg tablet 200 mg PO QDAY 12/29/24 02/07/25 History (Venclexta) metoprolol tartrate 50 mg tablet 25 mg (1/2 x 50 mg) PO BID 90 days 01/19/25 02/08/25 Rx #90 tabs Allergy/AdvReac Type Severity Reaction Status Date / Time ciprofloxacin (From Cipro) Allergy Intermediate Hives Verified 02/08/25 12:33 ibrutinib (From Imbruvica) Allergy dyspnea/diz Verified 02/08/25 12:33 zness rituximab Allergy Shortness Verified 02/08/25 12:33 of breath prochlorperazine (From AdvReac Unknown Dizziness Verified 02/08/25 12:33 Compazine) apixaban (From Eliquis) AdvReac Chest Verified 02/08/25 12:33 tightness Family History Father Diabetes Hypertension Mother Dementia Surgical History History of tonsillectomy History of bone marrow biopsy Social History household members: spouse Smoking Status: Former smoker Tobacco: How many years used: 15 how long ago did patient quit smoking: Many years ago alcohol intake: never substance use type: does not use caffeine: Yes ROS ROS Narrative General: Positive for fever HENT: Denies headache, denies stuffy nose, denies sore throat EYES: Denies changes in vision Resp: Shortness of breath, slight cough Cardiac: Denies chest pain GI: Some abdominal discomfort with constipation, denies nausea/vomiting : Unable to urinate last night Extremity: Some swelling in his lower extremities which is not new MSK: Feels a little generally weak and unwell Neuro: Denies any numbness/tingling Heme: Denies any bleeding or bruising Skin: Denies rashes Psychiatric: No complaints voiced Vital Signs Vital Signs Vital Signs: 02/08/25 12:31 02/08/25 12:49 02/08/25 13:33 Temperature 100.1 F H 100 F H Temperature Source Oral Oral Pulse Rate 89 97 Respiratory Rate 18 24 H Respiratory Effort Normal Respiratory Pattern Normal Blood Pressure 97/59 L 118/64 Blood Pressure Mean 71 82 Blood Pressure Source Blood Pressure Position Blood Pressure Location Pulse Ox 98 97 Oxygen Delivery Method Room Air Room Air 02/08/25 14:00 02/08/25 15:00 02/08/25 15:32 Temperature 100 F H 101.4 F H 99.5 F H Temperature Source Oral Oral Oral Pulse Rate 100 102 H 111 H Respiratory Rate 20 H 24 H 22 H Respiratory Effort Respiratory Pattern Blood Pressure 119/69 112/82 H 125/86 H Blood Pressure Mean 85 92 99 Blood Pressure Source Monitor Blood Pressure Position Semi-Fowlers Blood Pressure Location Right Arm Pulse Ox 95 99 95 Oxygen Delivery Method Room Air Room Air Room Air 02/08/25 15:47 Temperature 101.4 F H Temperature Source Oral Pulse Rate 102 H Respiratory Rate 22 H Respiratory Effort Respiratory Pattern Blood Pressure 112/82 H Blood Pressure Mean 92 Blood Pressure Source Monitor Blood Pressure Position Semi-Fowlers Blood Pressure Location Right Arm Pulse Ox 100 Oxygen Delivery Method Room Air Weight Weight: 91.172 kg Body Mass Index (BMI) 25.8 Physical Exam Narrative General: Alert, shivering HEENT: Atraumatic, normocephalic Eyes: Anicteric, normal conjunctiva, extraocular movements grossly intact Neck: Supple Respiratory: No overt wheezes or rhonchi, is somewhat tachypneic Cardiovascular: Low-grade sinus tachycardia GI: Soft, nondistended, no significant tenderness with no rebound, guarding, rigidity Extremities: Trace lower extremity edema Musculoskeletal: Moving all extremities Neuro: No overt focal neurological deficits Skin: No rashes appreciated Psych: Cooperative Results Lab / Micro Data Labs: Laboratory Results - last 24 hr 02/08/25 12:49: Urine Color Yellow, Urine Clarity Clear, Urine pH 6.0, Ur Specific [place] 1.010, Urine Protein 30 H, Urine Glucose (UA) 50 H, Urine Ketones Negative, Urine Occult Blood 50 H, Urine Nitrite Negative, Urine Bilirubin 1 H, Urine Urobilinogen 8 H, Ur Leukocyte Esterase 25 H, Urine RBC 0 SEEN, Urine WBC 0-5 SEEN, Ur Squamous Epith Cells 0 SEEN, Urine Bacteria 0 SEEN, Hyaline Casts 0-5 SEEN, Urine Mucus 0 SEEN 02/08/25 13:26: PT 17.7 H, INR 1.4, APTT 29.4, Lactic Acid 2.2 H*, Total Bilirubin 2.73 H, Direct Bilirubin 1.77 H, AST 41 H, ALT 57 H, Alkaline Phosphatase 117, Total Protein 5.3 L, Albumin 3.1 L, Globulin 2.2, Blood Type O POSITIVE, Antibody Screen NEGATIVE, Crossmatch See Detail Rhythm Strip Rhythm Strip: Sinus Rhythm Rate: 94 Ectopy: None Imaging Radiology Impression Abdomen/Pelvis CT 02/08/25 13:27 IMPRESSION: 1. No acute abdominopelvic finding. 2. Mild splenomegaly, improved since prior examination. Reading Location: [facility] Chest X-Ray 02/08/25 14:40 IMPRESSION: NO ACUTE FINDINGS. Reading Location: [facility] Assessment & Plan Assessment/Plan (1) Neutropenic fever: PLAN: Plan # Neutropenic fever -Fever up to 101.4 in the ED -Pancultured -CT abdomen with no infectious source -Chest x-ray no acute findings -Will check respiratory panels -Will obtain gallbladder ultrasound given abnormal LFTs and bilirubin - Continue cefepime -Will consult ID - Will hold venclexta temporarily given infection, restart soon as able # SAMANTHA -Creatinine of 1.44 up from 0.95 2 day ago -IV fluids and supportive care # Anemia with pancytopenia -Hemoglobin 6.9 -Will transfuse 1 unit packed red blood cells #Abn liver fxn - total bili 2.73, direct bili 1.77 with an AST of 41 and ALT of 57 - Nothing appreciated on CT of the abdomen -Will obtain dedicated gallbladder ultrasound # AML -On oral and IV chemo -Holding oral chemo given infection as above -Continue outpatient follow-up # History of paroxysmal atrial fibrillation -Has not tolerated anticoagulation in the past and is presently pancytopenic - Continue metoprolol at lower dose #Hypertension - Continue metoprolol but at lower dose given blood pressure low 100s, holding diltiazem to avoid hypotension #DVT ppx: SCDs Beverly Bhatt MD Charges/Coding Visit Charges Inpatient E&M: 44702 Init Hosp L2
[2025-02-08 16:40] LABS: Reflex Lactate? Y
--- NOTE | 2025-02-08 16:51 | US_ITS ---
EXAM: US Abdomen Limited, Gallbladder CLINICAL INDICATION: ABD DISCOMFORT, NEUTROPENIC FEVER, ABN BILI + LFTS TECHNIQUE: Real-time ultrasound of the right upper quadrant with image documentation. COMPARISON: No relevant prior studies available. FINDINGS: LIVER: Liver measures up to 15.1 cm. GALLBLADDER: Negative Balderas's sign was reported by the telecommunication equipment repairer. No gallstones. COMMON BILE DUCT: Unremarkable as visualized. No stones. No dilation. Common bile duct measures 0.3 cm in diameter. PANCREAS: Unremarkable as visualized. RIGHT KIDNEY: Unremarkable. No stones. No hydronephrosis. The right kidney measures 11.1 x 5.0 x 5.4 cm. US/Gallbladder IMPRESSION: No acute findings in the right upper quadrant. Reading Location: [id number]
--- NOTE | 2025-02-08 17:12 | EKG12_ITS ---
Test Reason : Blood Pressure : */* mmHG Vent. Rate : 129 BPM Atrial Rate : * BPM P-R Int : * ms QRS Dur : 76 ms QT Int : 310 ms P-R-T Axes : * 25 29 degrees QTcB Int : 454 ms Atrial fibrillation with rapid ventricular response Abnormal ECG When compared with ECG of 08-Feb-2025 12:55, MANUAL COMPARISON REQUIRED DATA IS UNCONFIRMED Confirmed by SHAHID AMADOR, VINCE ([id number]), editorial manager ROLANDA FIELDS ([id number]) on 02/10/2025 1:21:15 PM Referred By: Molly Dillon Confirmed By: VINCE KEY MD
[2025-02-08] MEDS: 0.9% Normal Saline (1000mL) 1,000 ML 100 ML IV ×2 (17:38→21:46)
[2025-02-08] MEDS: 0.9% Normal Saline (500mL Bag) 500 ML 999 ML IV (18:40)
[2025-02-08] MEDS: Amiodarone 150 MG in Dextrose 5%-Water (100mL Bag) 100 ML 600 MG IV BOLUS (18:54)
--- NOTE | 2025-02-08 18:57 | PCM.HOSP.N ---
Hospitalist Note Patient went into A-fib with RVR on the floor, pressures had been soft on arrival to the ED so hesitant to give diltiazem or metoprolol as this could worsen pressure, patient given amnio bolus and started on drip and once blood pressure improves can transition back to home medications, do suspect blood pressure will improve in part with rate improvement but also giving IV fluids. Likely went into A-fib with RVR due to acute febrile illness. Anticipate he will be able to go back on home medications on discharge. Patient not on anticoagulation and platelet count 36 and hemoglobin 6.9, not acutely started on anticoagulation at this time, does have a known history of A-fib
[2025-02-08] MEDS: Amiodarone 360 MG in Dextrose 5% Viaflo Bag 192.8 ML 33.3 MG CONT INF (19:27)
[2025-02-08] MEDS: Polyethylene Glycol 3350 17 GM PACKET PO (21:40)
[2025-02-08] MEDS: Senna/Docusate Sodium 1 Tablet 2 TABLET PO (21:50)
[2025-02-09] VITALS (33 sets, daily range): BP systolic 98–156; BP diastolic 11–111; PULSE 87–133; RESP 15–28; TEMP 36.8–38.3; O2SAT 92–98; BMI 28.6
[2025-02-09] MEDS: Amiodarone 360 MG in Dextrose 5% Viaflo Bag 192.8 ML 16.7 MG CONT INF ×2 (00:30→12:51)
--- NOTE | 2025-02-09 05:34 | PCM.HOSP.N ---
Hospitalist Note Bld Cx reported per RN with [facility] in clusters, will add vanc.
[2025-02-09 06:16] LABS: Hematocrit 19.5 % (40-54); Hemoglobin 6.8 g/dL (13.0-16.5); Immature Granulocytes Count 0.000 X10^3/uL (0.0-0.0); Mean Corp Hgb Conc 34.9 g/dL (32-36); Mean Corpuscular Volume 81.6 fL (80-94); Mean Platelet Vol. 10.6 fl (6.2-12.0); NRBC Flagged by Analyzer 0 % (0-5); POSITIVE COUNT YES; POSITIVE DIFFERENTIAL YES; POSITIVE MORPHOLOGY YES; RBC Distribution Width CV 15.2 % (11.6-14.6); RBC Distribution Width SD 43.9 fl (35.1-43.9); Red Blood Count 2.39 M/mm3 (4.6-6.2)
[2025-02-09] MEDS: Cefepime HCl 2 GM in 0.9% Normal Saline (100mL MB+) 100 ML IV ×3 (06:24→23:11)
[2025-02-09 06:28] LABS: Differential Indicated SCAN CRITERIA MET; Platelet Count 18 K/mm3 (150-450); White Blood Count 0.1 K/mm3 (4.4-11.0)
[2025-02-09 06:48] LABS: AST(SGOT) 19 U/L (<=37); Alanine Aminotransfer ALT/SGPT 46 U/L (<=46); Albumin, Serum 2.8 g/dL (3.4-4.8); Alkaline Phosphatase 116 U/L (40-129); Anion Gap 9 (5-15); BUN 25 mg/dL (4-19); BUN/Creat Ratio 24.3 RATIO (10-20); Calcium,Total 8.3 mg/dL (7.6-11.0); Carbon Dioxide 24.8 mmol/L (21.0-32.0); Chloride 103 mmol/L (98-108); Estimated Creatinine Clearance 91.31 ml/min (50-250); Globulin 2.2 g/dL (2.2-4.2); Glucose 166 mg/dL (70-99); Potassium 4.3 mmol/L (3.3-5.1)
[2025-02-09] MEDS: Vancomycin HCl 2,000 MG in 0.9% Normal Saline (500mL Bag) 500 ML 250 MG IV ×2 (07:02→19:56)
--- NOTE | 2025-02-09 08:10 | PCM.RX.CS ---
Consult Antibiotic Management Pharmacy has been consulted to manage selected antibiotic: Vancomycin Type of Intervention Type of Consult: New Suspected Infection Suspected Infection: Other Labs Labs: Sodium 137 mmol/L (133-145) 02/09/25 05:34 Potassium 4.3 mmol/L (3.3-5.1) 02/09/25 05:34 Chloride 103 mmol/L (98-108) 02/09/25 05:34 Carbon Dioxide 24.8 mmol/L (21.0-32.0) 02/09/25 05:34 Anion Gap 9 (5-15) 02/09/25 05:34 BUN 25 mg/dL (4-19) H 02/09/25 05:34 Creatinine 1.02 mg/dL (0.70-1.20) 02/09/25 05:34 Est GFR (MDRD) Non-Af 84 (>60) 02/09/25 05:34 BUN/Creatinine Ratio 24.3 RATIO (10-20) H 02/09/25 05:34 Glucose 166 mg/dL (70-99) H 02/09/25 05:34 Microbiology Microbiology: Microbiology 02/08/25 13:26 Blood Culture (Wb) - Anticubital Left Blood Culture - Preliminary 02/08/25 17:38 Mucosa - Nasopharyngeal Coronavirus COVID-19 PCR - Final 02/08/25 17:38 Mucosa - Nasopharyngeal Respiratory Panel (PCR) - Final Goal Trough Goal Trough: 15-20 mcg/mL Pharmacy Plan for Drug Dosing Pharmacy Plan for Drug Dosing: NEW IV VANCOMYCIN Consulting Physician: Dr. López Indication: neutropenic fever Goal Trough: 15-20 SrCr: 1.02 CrCl: 91 mL/min Comments: patient had loading dose of 2000mg IV x1 02/09/25 @0702 Vancomycin Dose: 2000mg IV Q12hr to start 02/09/25 @1900 Pending Level: 02/10/25 @1830, prior to 4th total dose of vancomycin per protocol Pharmacy Service will continue to monitor and adjust dosing as required.
[2025-02-09] MEDS: Senna/Docusate Sodium 1 Tablet 2 TABLET PO ×2 (09:04→21:30)
[2025-02-09] MEDS: Polyethylene Glycol 3350 17 GM PACKET PO ×2 (09:05→21:31)
--- NOTE | 2025-02-09 09:13 | ECHOD_ITS ---
Reason For Study Reason For Study: Murmur Procedure This was a 2D Doppler, Color Flow transthoracic echocardiogram. Exam performed portable in patient room. Left Ventricle Normal LV size. The estimated ejection fraction is 60 %. Unable to assess diastolic dysfunction. No regional wall motion abnormalities noted. Right Ventricle Normal RV size. Normal systolic function. Atria The left atrium is mildly enlarged. Normal right atrium. No doppler evidence for ASD. Mitral Valve There is no mitral valve stenosis. No mitral valve insufficiency. Tricuspid Valve There is no tricuspid stenosis. Trivial tricuspid valve insufficiency. Pulmonary artery systolic pressure is 35 mmHg. Aortic Valve Trisinus/trileaflet aortic valve. There is no aortic stenosis. No aortic valve insufficiency. Pulmonic Valve There is no pulmonic valvular stenosis. No pulmonic valve insufficiency. Great Vessels Normal sized aortic root. Pericardium/Pleural No pericardial effusion. MMode/2D Measurements & Calculations LVIDd: 5.2 cm IVSd: 1.5 cm Ao root diam: 3.8 cm LVIDs: 3.5 cm LVPWd: 1.2 cm RVDd: 4.2 cm FS: 31.6 % LAV(MOD-bp): 99.4 ml LVAd ap4: 35.1 cm2 SV(MOD-sp4): 61.0 ml LAV(MOD-bp) Indexed: 45.6 ml/m2 LVLd ap4: 8.6 cm SI(MOD-sp4): 28.0 ml/m2 LAV(MOD-sp2): 106.9 ml EDV(MOD-sp4): 116.7 ml LAV(MOD-sp4): 81.1 ml EDV(sp4-el): 122.0 ml LVAs ap4: 22.7 cm2 LVLs ap4: 7.8 cm ESV(MOD-sp4): 55.6 ml ESV(sp4-el): 55.9 ml EF(MOD-sp4): 52.3 % EF(sp4-el): 54.1 % SV(sp4-el): 66.1 ml LA A4 area: 26.1 cm2 LA dimension(2D): 4.3 cm RA A4 area: 18.9 cm2 TAPSE: 2.0 cm Doppler Measurements & Calculations MV E max tracy: 88.8 cm/sec MV V2 max: 133.7 cm/sec Ao V2 max: 114.9 cm/sec MV max P.2 mmHg Ao max P.3 mmHg MV V2 mean: 69.0 cm/sec Ao V2 mean: 84.4 cm/sec MV mean P.4 mmHg Ao mean P.2 mmHg MV V2 VTI: 26.0 cm Ao V2 VTI: 20.6 cm AV (velocity ratio): 0.74 LV V1 max: 93.1 cm/sec MR max tracy: 471.1 cm/sec TR max tracy: 284.5 cm/sec LV V1 max P.5 mmHg MR max P.8 mmHg TR max P.4 mmHg LV V1 mean P.0 mmHg LV V1 mean: 65.6 cm/sec LV V1 VTI: 15.3 cm ECHO/Echo Complete Interpretation Summary The estimated ejection fraction is 60 %. The left atrium is mildly enlarged. Ordering Physician: Brice Montesinos Referring Physician: Molly Dillon Performed By: Zheng Adrian RCS
--- NOTE | 2025-02-09 10:03 | CON.PCM.ID_ITS ---
Assessment & Plan Assessment/Plan (1) Neutropenic fever: PLAN: Neutropenic fever with MSSA bacteremia per pcr, suspected source is infected L chest port. Has been on chemo for AML. Elevated tbili, but RUQ and abd CT showed no infection. Will repeat bcx, check echo, and consult gen surg for port removal. Cont vanc/cefepime. Cont acyclovir for prophylaxis. Will follow, thank you, d/w Dr. Gonzales (2) MSSA bacteremia: (3) SAMANTHA (acute kidney injury): HPI Consult Data Date of Consult: 02/09/25 HPI Narrative Reason for Consultation: bacteremia HPI Narrative: DOMI ENAMORADO, is a 59 M with AML. L chest port placed about a month ago. Has been on palliative chemo. Port has been red, mildly sore. Had been feeling ok but had low grade fever at infusion center 02/08. No sick contacts. No mouth sores. Some cough with frothy sputum. Sent to ED, fever to 101.4, admitted on vanc/cefepime. No new joint/back pain. Full ROS performed and neg except as noted above. [facility] Medical History Nocturia Urinary frequency Encounter for education Acute myeloid leukemia Wears glasses History of leukemia Former smoker History of Holter monitoring History of echocardiogram Cardiology follow-up encounter History of irregular heartbeat MDS (myelodysplastic syndrome) Secondary pneumonia RSV (acute bronchiolitis due to respiratory syncytial virus) Atrial fibrillation with RVR Acute bronchitis Acute upper respiratory infection Hematuria Health care maintenance Dilated aortic root BPH (benign prostatic hyperplasia) Splenomegaly CLL (chronic lymphocytic leukemia) Dyspnea Infected wound Nonhealing surgical wound Thrombocytopenia due to drugs Neutropenia Thrombocytopenia Leukopenia Non Hodgkin's lymphoma Pain in left lower leg Neutropenic fever Hypoxia Pancytopenia Contact with and (suspected) exposure to other viral communicable diseases Tobacco abuse counseling Hypertension Anemia Chronic kidney disease (CKD) Pancytopenia Obesity Thrombocytopenia Paroxysmal supraventricular tachycardia (11/27/19) Near syncope (09/2019) Home Medications ?Medication ?Instructions ?Recorded ?Last Taken ?Type acetaminophen 500 mg tablet 500 mg PO Q6H PRN pain 01/15/25 History (Tylenol Extra Strength) diltiazem HCl 180 mg 180 mg PO DAILY 90 days #90 caps 09/22/24 02/07/25 Rx capsule,extended release 24 hr acyclovir 800 mg tablet 800 mg PO BID 11/25/2402/08 History allopurinol 300 mg tablet 300 mg PO .COMPLEX #30 tabs 12/26/24 02/07/25 Rx ondansetron 8 mg disintegrating 8 mg PO Q8H PRN nausea and 12/26/24 02/07/25 Rx tablet vomiting #30 tabs venetoclax 100 mg tablet 200 mg PO QDAY 12/29/2401/18 History (Venclexta) metoprolol tartrate 50 mg tablet 25 mg (07/21 x 50 mg) P O BID 90 days 01/19/25 02/08/25 Rx #90 tabs Allergy/AdvReac Type Severity Reaction Status Date / Time ciprofloxacin (From Cipro) Allergy Intermediate Hives Verified 02/08/25 12:33 ibrutinib (From Imbruvica) Allergy dyspnea/diz Verified 02/08/25 12:33 zness rituximab Allergy Shortness Verified 02/08/25 12:33 of breath prochlorperazine (From AdvReac Unknown Dizziness Verified 02/08/25 12:33 Compazine) apixaban (From Eliquis) AdvReac Chest Verified 02/08/25 12:33 tightness Family History Father Diabetes Hypertension Mother Dementia Surgical History History of tonsillectomy History of bone marrow biopsy Social History household members: spouse Smoking Status: Former smoker Tobacco: How many years used: 15 how long ago did patient quit smoking: Many years ago alcohol intake: never substance use type: does not use caffeine: Yes Physical Exam Const alert, oriented x3 and no apparent distress General Appearance: cooperative HEENT normocephalic and head/scalp atraumatic Eyes PERRL and EOMs intact bilaterally Neck supple and No nodes Resp Auscultation: wheezes Cardio no murmurs Rate: tachycardic GI soft to palpation, non-tender and non-distended Extremity Extremity Narrative: No spine tenderness General Extremity: no tenderness to palpation of joints or extremities; Negative for edema Skin Skin Narrative: L chest port with redness and swelling. No splinter hemorrhages on hands. Neuro CN's II-XII intact bilaterally Lab / Micro Data Attestation: I reviewed the patient's lab results. 02/09/25 05:34 02/09/25 05:34 Labs: Laboratory Results - last 24 hr 02/08/25 12:49: Urine Color Yellow, Urine Clarity Clear, Urine pH 6.0, Ur Specific [place] 1.010, Urine Protein 30 H, Urine Glucose (UA) 50 H, Urine Ketones Negative, Urine Occult Blood 50 H, Urine Nitrite Negative, Urine Bilirubin 1 H, Urine Urobilinogen 8 H, Ur Leukocyte Esterase 25 H, Urine RBC 0 SEEN, Urine WBC 0-5 SEEN, Ur Squamous Epith Cells 0 SEEN, Urine Bacteria 0 SEEN, Hyaline Casts 0-5 SEEN, Urine Mucus 0 SEEN 02/08/25 13:26: PT 17.7 H, INR 1.4, APTT 29.4, Lactic Acid 2.2 H*, Total Bilirubin 2.73 H, Direct Bilirubin 1.77 H, AST 41 H, ALT 57 H, Alkaline Phosphatase 117, Total Protein 5.3 L, Albumin 3.1 L, Globulin 2.2, Blood Type O POSITIVE, Antibody Screen NEGATIVE, Crossmatch See Detail 02/08/25 17:31: Lactic Acid 1.3 02/09/25 05:34: WBC 0.1 L*, RBC 2.39 L, Hgb 6.8 L, Hct 19.5 L, MCV 81.6, MCH 28.5, MCHC 34.9, RDW Std Deviation 43.9, RDW Coeff of Екатерина 15.2 H, Plt Count 18 L*, MPV 10.6, Immature Gran % (Auto) 0.000, Neut % (Auto) 16.7 L, Lymph % (Auto) 83.3 H, [place] % (Auto) 0.0, Eos % (Auto) 0.0, Baso % (Auto) 0.0, Absolute Neuts (auto) 0.0 L, Absolute Lymphs (auto) 0.10 L, Nucleated RBC % 0, Platelet Estimate MKD DEC, Sodium 137, Potassium 4.3, Chloride 103, Carbon Dioxide 24.8, Anion Gap 9, BUN 25 H, Creatinine 1.02, Estim Creat Clear Calc 91.31, Est GFR (MDRD) Non-Af 84, BUN/Creatinine Ratio 24.3 H, Glucose 166 H, Calcium 8.3, Total Bilirubin 3.46 H, AST 19, ALT 46, Alkaline Phosphatase 116, Total Protein 5.0 L, Albumin 2.8 L, Globulin 2.2, Albumin/Globulin Ratio 1.3 Micro: Microbiology 02/08/25 13:26 Blood Culture (Wb) - Anticubital Left Bacteria Detection (PCR) - Final Staphylococcus aureus 02/08/25 13:26 Blood Culture (Wb) - Anticubital Left Blood Culture - Preliminary 02/08/25 17:38 Mucosa - Nasopharyngeal Coronavirus COVID-19 PCR - Final 02/08/25 17:38 Mucosa - Nasopharyngeal Respiratory Panel (PCR) - Final Rhythm Strip Rhythm Strip: Sinus Rhythm Rate: 94 Ectopy: None Imaging Radiology Impression Abdomen/Pelvis CT 02/08/25 13:27 IMPRESSION: 1. No acute abdominopelvic finding. 2. Mild splenomegaly, improved since prior examination. Reading Location: [facility] Chest X-Ray 02/08/25 14:40 IMPRESSION: NO ACUTE FINDINGS. Reading Location: [facility] Gallbladder Ultrasound 02/08/25 16:51 IMPRESSION: No acute findings in the right upper quadrant. Reading Location: [id number]
--- NOTE | 2025-02-09 12:11 | EX.PCM.CON.S ---
Assessment & Plan Assessment/Plan (1) MSSA bacteremia: PLAN: Patient is a 59-year-old male with diagnosis of AML undergoing chemotherapy via left Port-A-Cath placed by me on 01/17/2025 who is presented with neutropenic fever and evidence of MSSA bacteremia. Given the latter micro result I have been consulted for Port-A-Cath removal. Given patient's history (with concurrent chemotherapy and complicated vascular access on initial attempt) we double checked with infectious disease as to whether or not port removal was essential and they confirmed that it was. I initially made patient n.p.o. and plan for port removal today, however, he is anemic, thrombocytopenic, and A-fib with RVR. Through joint discussions with myself, primary hospitalist, and anesthesia we determined that it was best to postpone port removal until tomorrow 02/10/2025. Please make patient n.p.o. past midnight in anticipation of this procedure obtaining signed consent. In the interim I have asked hospitalist to continue to work towards rate control and administer PRBCs and platelets to optimize patient clinically. Dalton Danielson MD General Surgery Endocrine Surgery Pager: [facility] [address] [place] [address], [address] [place] [address] Office: [phone] HPI Consult Data Date of Consult: 02/09/25 HPI Narrative Reason for Consultation: Bacteremia with indwelling Port-A-Cath HPI Narrative: DOMI ENAMORADO, is a 59 M who presents to [facility] with complaints of severe constipation, weakness, altered balance, recent fall, and fever approximately 1 week after initiating chemotherapy for his diagnosis of AML. He is known to me from history of Port-A-Cath placement?most recently on 01/17/2025. He states that following the port placement he did notice some redness around the port but it was mostly dark red and was not particularly tender. He shares that his symptoms really began last week when he began to get constipated and although he was recommended to take stool softeners this did little to alleviate his symptoms/discomfort. He found himself unable to control his urinary habits as well. With his presentation to the ER yesterday as a fever in a neutropenic patient Mr. Enamorado was pancultured. I was consulted today because his blood culture PCR was positive for Staph aureus. Double checking with infectious disease would determine there is no way patient can be treated for the infection while maintaining the port. On visiting Mr. Enamorado at bedside, his is also present, and together they state that he is doing somewhat better since he was admitted. [facility] Medical History Nocturia Urinary frequency Encounter for education Acute myeloid leukemia Wears glasses History of leukemia Former smoker History of Holter monitoring History of echocardiogram Cardiology follow-up encounter History of irregular heartbeat MDS (myelodysplastic syndrome) Secondary pneumonia RSV (acute bronchiolitis due to respiratory syncytial virus) Atrial fibrillation with RVR Acute bronchitis Acute upper respiratory infection Hematuria Health care maintenance Dilated aortic root BPH (benign prostatic hyperplasia) Splenomegaly CLL (chronic lymphocytic leukemia) Dyspnea Infected wound Nonhealing surgical wound Thrombocytopenia due to drugs Neutropenia Thrombocytopenia Leukopenia Non Hodgkin's lymphoma Pain in left lower leg Neutropenic fever Hypoxia Pancytopenia Contact with and (suspected) exposure to other viral communicable diseases Tobacco abuse counseling Hypertension Anemia Chronic kidney disease (CKD) Pancytopenia Obesity Thrombocytopenia Paroxysmal supraventricular tachycardia (11/27/19) Near syncope (09/2019) Home Medications ?Medication ?Instructions ?Recorded ?Last Taken ?Type acetaminophen 500 mg tablet 500 mg PO Q6H PRN pain 10/14/23 01/15/25 History (Tylenol Extra Strength) diltiazem HCl 180 mg 180 mg PO DAILY 90 days #90 caps 09/22/24 02/07/25 Rx capsule,extended release 24 hr acyclovir 800 mg tablet 800 mg PO BID 11/25/24 02/08/25 History allopurinol 300 mg tablet 300 mg PO .COMPLEX #30 tabs 12/26/24 02/07/25 Rx ondansetron 8 mg disintegrating 8 mg PO Q8H PRN nausea and 12/26/24 02/07/25 Rx tablet vomiting #30 tabs venetoclax 100 mg tablet 200 mg PO QDAY 12/29/24 02/07/25 History (Venclexta) metoprolol tartrate 50 mg tablet 25 mg (1/2 x 50 mg) PO BID 90 days 01/19/25 02/08/25 Rx #90 tabs Allergy/AdvReac Type Severity Reaction Status Date / Time ciprofloxacin (From Cipro) Allergy Intermediate Hives Verified 02/08/25 12:33 ibrutinib (From Imbruvica) Allergy dyspnea/diz Verified 02/08/25 12:33 zness rituximab Allergy Shortness Verified 02/08/25 12:33 of breath prochlorperazine (From AdvReac Unknown Dizziness Verified 02/08/25 12:33 Compazine) apixaban (From Eliquis) AdvReac Chest Verified 02/08/25 12:33 tightness Family History Father Diabetes Hypertension Mother Dementia Surgical History History of tonsillectomy History of bone marrow biopsy Social History household members: spouse Smoking Status: Former smoker Tobacco: How many years used: 15 how long ago did patient quit smoking: Many years ago alcohol intake: never substance use type: does not use caffeine: Yes Physical Exam Const alert, oriented x3 and no apparent distress Constitutional Narrative: Patient appears slightly fatigued and anxious General Appearance: cooperative Chest Chest Narrative: Left Port-A-Cath presently accessed. Nonerythematous. Nontender upon palpation. Lab / Micro Data 02/09/25 05:34 02/09/25 05:34 Labs: Laboratory Results - last 24 hr 02/08/25 12:49: Urine Color Yellow, Urine Clarity Clear, Urine pH 6.0, Ur Specific [place] 1.010, Urine Protein 30 H, Urine Glucose (UA) 50 H, Urine Ketones Negative, Urine Occult Blood 50 H, Urine Nitrite Negative, Urine Bilirubin 1 H, Urine Urobilinogen 8 H, Ur Leukocyte Esterase 25 H, Urine RBC 0 SEEN, Urine WBC 0-5 SEEN, Ur Squamous Epith Cells 0 SEEN, Urine Bacteria 0 SEEN, Hyaline Casts 0-5 SEEN, Urine Mucus 0 SEEN 02/08/25 13:26: PT 17.7 H, INR 1.4, APTT 29.4, Lactic Acid 2.2 H*, Total Bilirubin 2.73 H, Direct Bilirubin 1.77 H, AST 41 H, ALT 57 H, Alkaline Phosphatase 117, Total Protein 5.3 L, Albumin 3.1 L, Globulin 2.2, Blood Type O POSITIVE 02/08/25 13:26: Blood Type Cancelled, A1 Antigen Typing Cancelled, Rho(D) Type Cancelled, Antibody Screen NEGATIVE 02/08/25 13:26: Antibody Screen Cancelled, Crossmatch See Detail 02/08/25 13:26: Crossmatch See Detail 02/08/25 17:31: Lactic Acid 1.3 02/09/25 05:34: WBC 0.1 L*, RBC 2.39 L, Hgb 6.8 L, Hct 19.5 L, MCV 81.6, MCH 28.5, MCHC 34.9, RDW Std Deviation 43.9, RDW Coeff of [place] 15.2 H, Plt Count 18 L*, MPV 10.6, Immature Gran % (Auto) 0.000, Neut % (Auto) 16.7 L, Lymph % (Auto) 83.3 H, [place] % (Auto) 0.0, Eos % (Auto) 0.0, Baso % (Auto) 0.0, Absolute Neuts (auto) 0.0 L, Absolute Lymphs (auto) 0.10 L, Nucleated RBC % 0, Platelet Estimate MKD DEC, Sodium 137, Potassium 4.3, Chloride 103, Carbon Dioxide 24.8, Anion Gap 9, BUN 25 H, Creatinine 1.02, Estim Creat Clear Calc 91.31, Est GFR (MDRD) Non-Af 84, BUN/Creatinine Ratio 24.3 H, Glucose 166 H, Calcium 8.3, Total Bilirubin 3.46 H, AST 19, ALT 46, Alkaline Phosphatase 116, Total Protein 5.0 L, Albumin 2.8 L, Globulin 2.2, Albumin/Globulin Ratio 1.3 Micro: Microbiology 02/08/25 13:26 Blood Culture (Wb) - Anticubital Left Bacteria Detection (PCR) - Final Staphylococcus aureus 02/08/25 13:26 Blood Culture (Wb) - Anticubital Left Blood Culture - Preliminary 02/08/25 17:38 Mucosa - Nasopharyngeal Coronavirus COVID-19 PCR - Final 02/08/25 17:38 Mucosa - Nasopharyngeal Respiratory Panel (PCR) - Final Rhythm Strip Rhythm Strip: Sinus Rhythm Rate: 94 Ectopy: None Imaging Radiology Impression Abdomen/Pelvis CT 02/08/25 13:27 IMPRESSION: 1. No acute abdominopelvic finding. 2. Mild splenomegaly, improved since prior examination. Reading Location: [facility] Chest X-Ray 02/08/25 14:40 IMPRESSION: NO ACUTE FINDINGS. Reading Location: [facility] Gallbladder Ultrasound 02/08/25 16:51 IMPRESSION: No acute findings in the right upper quadrant. Reading Location: [facility] Charges/Coding Visit Charges Inpatient E&M: 81678 Init Hosp L2
--- NOTE | 2025-02-09 16:27 | PCM.CONS.C ---
Assessment & Plan Assessment/Plan (1) Neutropenic fever: (2) MSSA bacteremia: (3) Atrial fibrillation: QUALIFIERS: Atrial fibrillation type: paroxysmal Qualified Code(s): I48.0 - Paroxysmal atrial fibrillation PLAN: Plan Continue his home dose of Cardizem and metoprolol. Agree with continuing amiodarone overnight. Will consider switching him to p.o. amiodarone tomorrow. HPI Consult Data Date of Consult: 02/09/25 HPI Narrative Reason for Consultation: Atrial fibrillation with RVR HPI Narrative: DOMI ENAMORADO, is a 59 M with acute myeloid leukemia, severe pancytopenia presenting with fever. He was found to have staph bacteremia and his port will likely be removed tomorrow. He presented with A-fib with RVR as well and has been started on amiodarone drip. He was hypotensive upon arrival to the ER yesterday and his metoprolol dose has been decreased during his hospital stay this time. Patient has known A-fib but is not on anticoagulation because of his pancytopenia. [facility] Medical History Nocturia Urinary frequency Encounter for education Acute myeloid leukemia Wears glasses History of leukemia Former smoker History of Holter monitoring History of echocardiogram Cardiology follow-up encounter History of irregular heartbeat MDS (myelodysplastic syndrome) Secondary pneumonia RSV (acute bronchiolitis due to respiratory syncytial virus) Atrial fibrillation with RVR Acute bronchitis Acute upper respiratory infection Hematuria Health care maintenance Dilated aortic root BPH (benign prostatic hyperplasia) Splenomegaly CLL (chronic lymphocytic leukemia) Dyspnea Infected wound Nonhealing surgical wound Thrombocytopenia due to drugs Neutropenia Thrombocytopenia Leukopenia Non Hodgkin's lymphoma Pain in left lower leg Neutropenic fever Hypoxia Pancytopenia Contact with and (suspected) exposure to other viral communicable diseases Tobacco abuse counseling Hypertension Anemia Chronic kidney disease (CKD) Pancytopenia Obesity Thrombocytopenia Paroxysmal supraventricular tachycardia (11/27/19) Near syncope (09/2019) Home Medications ?Medication ?Instructions ?Recorded ?Last Taken ?Type acetaminophen 500 mg tablet 500 mg PO Q6H PRN pain 10/14/23 01/15/25 History (Tylenol Extra Strength) diltiazem HCl 180 mg 180 mg PO DAILY 90 days #90 caps 09/22/24 02/07/25 Rx capsule,extended release 24 hr acyclovir 800 mg tablet 800 mg PO BID 11/25/24 02/08/25 History allopurinol 300 mg tablet 300 mg PO .COMPLEX #30 tabs 12/26/24 02/07/25 Rx ondansetron 8 mg disintegrating 8 mg PO Q8H PRN nausea and 12/26/24 02/07/25 Rx tablet vomiting #30 tabs venetoclax 100 mg tablet 200 mg PO QDAY 12/29/24 02/07/25 History (Venclexta) metoprolol tartrate 50 mg tablet 25 mg (1/2 x 50 mg) PO BID 90 days 01/19/25 02/08/25 Rx #90 tabs Allergy/AdvReac Type Severity Reaction Status Date / Time ciprofloxacin (From Cipro) Allergy Intermediate Hives Verified 02/08/25 12:33 ibrutinib (From Imbruvica) Allergy dyspnea/diz Verified 02/08/25 12:33 zness rituximab Allergy Shortness Verified 02/08/25 12:33 of breath prochlorperazine (From AdvReac Unknown Dizziness Verified 02/08/25 12:33 Compazine) apixaban (From Eliquis) AdvReac Chest Verified 02/08/25 12:33 tightness Family History Father Diabetes Hypertension Mother Dementia Surgical History History of tonsillectomy History of bone marrow biopsy Social History household members: spouse Smoking Status: Former smoker Tobacco: How many years used: 15 how long ago did patient quit smoking: Many years ago alcohol intake: never substance use type: does not use caffeine: Yes Physical Exam Const alert and oriented x3 HEENT normocephalic Risk Stratification Risk Stratification Applicable: No Charges/Coding Visit Charges Inpatient E&M: 24063 Init Hosp L1 Objective Data Vital Signs: Vital Signs Temp Pulse Resp BP Pulse Ox O2 Del Method 99.5 F H 123 H 17 142/80 H 95 Room Air 02/09/25 16:15 02/09/25 16:15 02/09/25 16:15 02/09/25 16:15 02/09/25 16:15 02/09/25 16:15 Oxygen Delivery Method Room Air Weight: 211 lb 3.245 oz Body Mass Index (BMI) 28.6 Intake & Output: Intake and Output for Last 24 Hours 02/07/25 02/08/25 02/09/25 23:59 23:59 23:59 Intake Total 3734.56 / 4117.86 2262.46 / 2262.46 Output Total 1250 / 2450 2400 / 2400 Balance 2484.56 / 1667.86 -137.54 / -137.54 Lab / Micro Data 02/09/25 05:34 02/09/25 05:34 Labs: Laboratory Results - last 24 hr 02/08/25 13:26: Blood Type Cancelled, A1 Antigen Typing Cancelled, Rho(D) Type Cancelled, Antibody Screen Cancelled, Crossmatch See Detail 02/08/25 13:26: Crossmatch See Detail 02/08/25 17:31: Lactic Acid 1.3 02/09/25 05:34: WBC 0.1 L*, RBC 2.39 L, Hgb 6.8 L, Hct 19.5 L, MCV 81.6, MCH 28.5, MCHC 34.9, RDW Std Deviation 43.9, RDW Coeff of [place]катер[place] 15.2 H, Plt Count 18 L*, MPV 10.6, Immature Gran % (Auto) 0.000, Neut % (Auto) 16.7 L, Lymph % (Auto) 83.3 H, [place] % (Auto) 0.0, Eos % (Auto) 0.0, Baso % (Auto) 0.0, Absolute Neuts (auto) 0.0 L, Absolute Lymphs (auto) 0.10 L, Nucleated RBC % 0, Platelet Estimate MKD DEC, Sodium 137, Potassium 4.3, Chloride 103, Carbon Dioxide 24.8, Anion Gap 9, BUN 25 H, Creatinine 1.02, Estim Creat Clear Calc 91.31, Est GFR (MDRD) Non-Af 84, BUN/Creatinine Ratio 24.3 H, Glucose 166 H, Calcium 8.3, Total Bilirubin 3.46 H, AST 19, ALT 46, Alkaline Phosphatase 116, Total Protein 5.0 L, Albumin 2.8 L, Globulin 2.2, Albumin/Globulin Ratio 1.3 Micro: Microbiology 02/08/25 13:26 Blood Culture (Wb) - Anticubital Left Bacteria Detection (PCR) - Final Staphylococcus aureus 02/08/25 13:26 Blood Culture (Wb) - Anticubital Left Blood Culture - Preliminary 02/08/25 17:38 Mucosa - Nasopharyngeal Coronavirus COVID-19 PCR - Final 02/08/25 17:38 Mucosa - Nasopharyngeal Respiratory Panel (PCR) - Final Rhythm Strip Rhythm Strip: Sinus Rhythm Rate: 94 Ectopy: None Cardiology Labs/Tests 02/08/25 17:31: Lactic Acid 1.3 02/09/25 05:34: WBC 0.1 L*, RBC 2.39 L, Hgb 6.8 L, Hct 19.5 L, MCV 81.6, MCH 28.5, MCHC 34.9, Plt Count 18 L*, MPV 10.6, Immature Gran % (Auto) 0.000, Neut % (Auto) 16.7 L, Lymph % (Auto) 83.3 H, [place] % (Auto) 0.0, Eos % (Auto) 0.0, Baso % (Auto) 0.0, Absolute Neuts (auto) 0.0 L, Nucleated RBC % 0, Sodium 137, Potassium 4.3, Chloride 103, Carbon Dioxide 24.8, Anion Gap 9, BUN 25 H, Creatinine 1.02, Est GFR (MDRD) Non-Af 84, BUN/Creatinine Ratio 24.3 H, Glucose 166 H, Calcium 8.3, Total Bilirubin 3.46 H Rhythm: EKG: ECHO: Stress Test: Cardiac Cath: PCI: CT Surgery: Holter monitor: EPS: PPM: CXR: Chest CT Scan: Radiography Diagnostic Testing: Radiology Impression Gallbladder Ultrasound 02/08/25 16:51 IMPRESSION: No acute findings in the right upper quadrant. Reading Location: [facility] Echocardiogram 02/09/25 09:13 Interpretation Summary The estimated ejection fraction is 60 %. The left atrium is mildly enlarged. Ordering Physician: Brice Montesinos Referring Physician: Molly Dillon Performed By: Zheng Adrian RCS
--- NOTE | 2025-02-09 20:26 | PCM.PN.HOSP ---
Reason for Visit Chief Complaint: Fever Subjective Subjective Patient was seen and examined today, his atrial fibrillation was not well-controlled today and so I requested that general surgery not take him to surgery today for removal of his Mediport-this was recommended by infectious diseases due to positive MSSA in the bloodstream. Also, patient's platelet count was low and although he was not bleeding, I decided to transfuse the patient with platelets. He also will receive 3 units of blood due to his low hemoglobin, his blood count will be rechecked tomorrow. Cardiology will see the patient today. Objective Data Objective Data Vital Signs: Vital Signs Temp Pulse Resp BP Pulse Ox O2 Del Method 100.6 F H 118 H 16 137/98 H 95 Room Air 02/09/25 19:48 02/09/25 19:48 02/09/25 19:48 02/09/25 19:48 02/09/25 19:48 02/09/25 20:05 Oxygen Delivery Method Room Air Weight: 95.8 kg Body Mass Index (BMI) 28.6 Intake & Output: Intake and Output for Last 24 Hours 02/07/25 02/08/25 02/09/25 23:59 23:59 23:59 Intake Total 3734.56 / 4117.86 3062.46 / 3062.46 Output Total 1250 / 2450 3300 / 3300 Balance 2484.56 / 1667.86 -237.54 / -237.54 Lab / Micro Data 02/11/25 04:25 02/10/25 05:10 Labs: Laboratory Results - last 24 hr 02/08/25 13:26: Blood Type Cancelled, A1 Antigen Typing Cancelled, Rho(D) Type Cancelled, Antibody Screen Cancelled, Crossmatch See Detail 02/08/25 13:26: Crossmatch See Detail 02/09/25 05:34: WBC 0.1 L*, RBC 2.39 L, Hgb 6.8 L, Hct 19.5 L, MCV 81.6, MCH 28.5, MCHC 34.9, RDW Std Deviation 43.9, RDW Coeff of [place] 15.2 H, Plt Count 18 L*, MPV 10.6, Immature Gran % (Auto) 0.000, Neut % (Auto) 16.7 L, Lymph % (Auto) 83.3 H, [place] % (Auto) 0.0, Eos % (Auto) 0.0, Baso % (Auto) 0.0, Absolute Neuts (auto) 0.0 L, Absolute Lymphs (auto) 0.10 L, Nucleated RBC % 0, Platelet Estimate MKD DEC, Sodium 137, Potassium 4.3, Chloride 103, Carbon Dioxide 24.8, Anion Gap 9, BUN 25 H, Creatinine 1.02, Estim Creat Clear Calc 91.31, Est GFR (MDRD) Non-Af 84, BUN/Creatinine Ratio 24.3 H, Glucose 166 H, Calcium 8.3, Total Bilirubin 3.46 H, AST 19, ALT 46, Alkaline Phosphatase 116, Total Protein 5.0 L, Albumin 2.8 L, Globulin 2.2, Albumin/Globulin Ratio 1.3 Micro: Microbiology 02/08/25 13:26 Blood Culture (Wb) - Anticubital Left Bacteria Detection (PCR) - Final Staphylococcus aureus 02/08/25 13:26 Blood Culture (Wb) - Anticubital Left Blood Culture - Preliminary 02/08/25 17:38 Mucosa - Nasopharyngeal Coronavirus COVID-19 PCR - Final 02/08/25 17:38 Mucosa - Nasopharyngeal Respiratory Panel (PCR) - Final Radiography Diagnostic Testing: Radiology Impression Echocardiogram 02/09/25 09:13 Interpretation Summary The estimated ejection fraction is 60 %. The left atrium is mildly enlarged. Ordering Physician: Brice Montesinos Referring Physician: Molly Dillon Performed By: Zheng Adrian RCS Rhythm Strip Rhythm Strip: Sinus Rhythm Rate: 94 Ectopy: None Physical Exam Const alert, oriented x3 and no apparent distress Constitutional Narrative: Patient appears unwell General Appearance: cooperative, well kempt and well developed Orientation / Consciousness: awake, oriented to person, oriented to place and oriented to time HEENT normocephalic, head/scalp atraumatic and moist oral mucous membranes Eyes PERRL, EOMs intact bilaterally and conjunctivae normal Neck supple, no JVD, thyroid normal and no carotid bruits General: trachea midline Resp normal respiratory effort, no retractions, no use of accessory muscles and clear to auscultation bilaterally Auscultation: Negative for rales, rhonchi or wheezes Cardio S1 normal heart sound, S2 normal heart sound, no murmurs, no rub and no gallops Cardio Narrative: Heart rate and rhythm is irregular GI normal to inspection, nondistended, normoactive bowel sounds, soft to palpation, non-tender and non-distended Extremity no clubbing, cyanosis or edema Skin Skin Narrative: Patient has redness and induration over the area of his Mediport. Neuro oriented x3, CN's II-XII intact bilaterally, moves all extremities, no focal motor deficits and no sensory deficits noted Sensorium / Orientation: awake and alert Speech: speech normal Psych affect normal Assessment & Plan Assessment/Plan (1) MSSA bacteremia: PLAN: Plan 1. MSSA bacteremia-patient is currently on antibiotic coverage per infectious diseases, his Mediport will be removed today, the area around the Mediport was reddened and tender.\ #2 pancytopenia secondary to AML-patient will receive platelets and packed red blood cells today, labs will be monitored #3 paroxysmal atrial fibrillation-patient is currently on amiodarone, he will be seen by cardiology today #4 acute kidney injury-labs will be monitored #5 elevated bilirubin-etiology unclear, labs will be monitored Total clinical time spent by myself addressing the patient's medical issues, reviewing all of his data, and collaborating with patient's care team: 35 minutes Charges/Coding Visit Charges Inpatient E&M: 34117 Subs Hosp L2
[2025-02-10] VITALS (35 sets, daily range): BP systolic 103–151; BP diastolic 61–112; PULSE 76–126; RESP 14–31; TEMP 36.4–38.8; O2SAT 89–98
[2025-02-10] MEDS: 0.9 % NaCl (Sterile) Posiflush 10 mL IV ×2 (00:08→05:11)
[2025-02-10] MEDS: Amiodarone 360 MG in Dextrose 5% Viaflo Bag 192.8 ML 16.7 MG CONT INF ×2 (00:37→13:49)
[2025-02-10] MEDS: 0.9% Saline Lock 10 ML Syringe IV ×3 (00:38→13:50)
[2025-02-10] MEDS: Cefepime HCl 2 GM in 0.9% Normal Saline (100mL MB+) 100 ML IV ×3 (05:10→22:53)
[2025-02-10] MEDS: Vancomycin HCl 2,000 MG in 0.9% Normal Saline (500mL Bag) 500 ML 250 MG IV ×2 (06:21→20:13)
[2025-02-10 06:51] LABS: Hematocrit 26.5 % (40-54); Hemoglobin 9.3 g/dL (13.0-16.5); Immature Granulocytes Count 0.000 X10^3/uL (0.0-0.0); Mean Corp Hgb Conc 35.1 g/dL (32-36); Mean Corpuscular Volume 83.6 fL (80-94); NRBC Flagged by Analyzer 0 % (0-5); POSITIVE COUNT YES; POSITIVE DIFFERENTIAL YES; POSITIVE MORPHOLOGY YES; RBC Distribution Width CV 14.6 % (11.6-14.6); RBC Distribution Width SD 43.8 fl (35.1-43.9); Red Blood Count 3.17 M/mm3 (4.6-6.2)
[2025-02-10 06:53] LABS: Differential Indicated SCAN CRITERIA MET
[2025-02-10 06:56] LABS: Platelet Count 23 K/mm3 (150-450); White Blood Count 0.2 K/mm3 (4.4-11.0)
[2025-02-10] MEDS: Lactated Ringers 1,000 ML 15 ML IV (07:15)
--- NOTE | 2025-02-10 07:32 | PCM.PRE.AN2 ---
ASA Classification* ASA Classification ASA Classification: 4 Assessment & Plan Anesthesia* Anesthesia Assessment Anesthesia Assessment: Discussed sedation and/or anesthesia options, risks, benefits, and alternatives with patient/parents/legal guardian/POA. Questions invited. The patient/parents/legal guardian/POA seems to understand and agrees to proceed with anesthesia plan. Reviewed the physical assessment, medical history, allergy history and patient home medications list prior to surgery/procedure/anesthetic and documented any changes. Performed airway and anesthesia risk assessments. Anesthesia Type Anesthesia Type: MAC History Source History Obtained from:: Patient and Chart Anesthesia Focused Assessment* Temperature: 98.8 F Pulse Rate: 109 Blood Pressure: 124/96 Respiratory Rate: 20 Pulse Ox: 96 Oxygen Delivery Method: Room Air Airway Assessment Mouth opens: >3 cm Mallampati Score: I Teeth Condition: Chipped/Broken (Tooth #8 is chipped. All else is tight.) Neck Range of motion (ROM): Limited ROM (Slight Decrease) Labs Anesthesia Preop lab: CBC WBC 0.2 K/mm3 (4.4-11.0) L* 02/10/25 05:10 02/10/25 RBC 3.17 M/mm3 (4.6-6.2) L 02/10/25 05:10 02/10/25 Hgb 9.3 g/dL (13.0-16.5) L 02/10/25 05:10 02/10/25 Hct 26.5 % (40-54) L 02/10/25 05:10 02/10/25 Plt Count 23 K/mm3 (150-450) L* 02/10/25 05:10 02/10/25 CHEMISTRY Potassium 4.3 mmol/L (3.3-5.1) 02/09/25 05:34 02/09/25 Sodium 137 mmol/L (133-145) 02/09/25 05:34 02/09/25 Magnesium 1.9 mg/dL (1.5-2.2) 02/06/25 08:40 02/06/25 Phosphorus 3.4 mg/dL (2.7-4.5) 02/06/25 08:40 02/06/25 BUN 25 mg/dL (4-19) H 02/09/25 05:34 02/09/25 Creatinine 1.02 mg/dL (0.70-1.20) 02/09/25 05:34 02/09/25 Glucose 166 mg/dL (70-99) H 02/09/25 05:34 02/09/25 TSH 1.590 uIU/mL (0.358-3.740) 09/07/24 05:50 09/07/24 COAG PT 17.7 SECONDS (11.7-14.9) H 02/08/25 13:26 02/08/25 Pre-Assessment Diagnosis/Proposed Procedure Planned Operative Procedure(s): Removal of left port. Anesthesia History Anesthesia History - envelope sealer: Anesthesia History - envelope sealer Hx Hospitalization Yes: 11/2024 after failed med 01/03/25 08:14 port insertion Any Problems With Anesthesia No 02/09/25 21:15 Cholinesterase deficiency No 02/09/25 21:15 You/Your Family Experience No 02/09/25 21:15 fever (hyperthermia) with Relationship Recent Exposure to Contagious No 02/09/25 21:15 Disease Does patient have nerve No 02/09/25 21:15 stimulator Patient instructed to have No 02/09/25 21:15 device shut off --Does patient have Pacemaker No 02/09/25 21:17 or ICD? When Was Last Pacemaker Check QUESTION #4 FULL TEXT: You/Your Family Experience fever (hyperthermia) with Anesthesia Last Oral Intake Last Oral intake: Last Oral Intake NPO since 00:00 02/09/25 21:17 Meds taken in AM with sips of water? Meds patient instructed to take am of surgery Any additional information?: Yes Meds taken in AM with sips of water?: Yes PONV PONV - envelope sealer: PONV - envelope sealer Female HX of Motion Sickness HX of N/V After Surgery Non-Smoker Duration of Surgery greater than 60 minutes Number of Risk Factors PONV Score Height & Weight Height & Weight: Anesthesia: Height & Weight Height 6 ft 02/09/25 21:17 Weight: 95.8 kg 02/09/25 21:17 Body Mass Index (BMI) 28.6 02/09/25 21:17 Respiratory Assessment Respiratory Assessment - envelope sealer: Respiratory Tract Infection Hx - envelope sealer Hx Respiratory Tract Infection No 02/09/25 21:15 STOP Sleep Apnea STOP Sleep Apnea - envelope sealer: STOP Sleep Apnea - envelope sealer Hx Hypertension No 02/08/25 16:52 Hx Sleep Apnea No 02/08/25 16:52 CPAP BIPAP Do you snore loudly (louder No 02/08/25 16:52 than talking or can be heard Do you often feel tired/ Yes 02/08/25 16:52 fatigued/ sleepy during daytime? Has anyone observed you stop No 02/08/25 16:52 breathing during sleep? STOP Results Negative 02/08/25 16:52 QUESTION #5 FULL TEXT : Do you snore loudly (louder than talking or can be heard through closed doors)? Tobacco Use History Tobacco Use History - envelope sealer: Tobacco Use History - envelope sealer Tobacco Use Smoking Status Former smoker 02/08/25 16:52 Hx Tobacco Use No 02/08/25 16:52 Years Smoking Packs Smoked per Day Smoking Cessation Date was No - quit smoking greater 02/08/25 16:52 within the last 15 years than 15 years ago Hx Smoking Cessation Date 04/19/90 02/08/25 16:52 Hx Smoking Cessation Counseling Hematologic Medial History Hematologic Hx - envelope sealer: Hematologic Medical Hx - product management specialist Hx of Blood Transfusion Yes 02/08/25 16:52 Hx of Transfusion in last 3 Yes 02/08/25 16:52 Months Date of Last Transfusion (if 02/08/25 02/08/25 16:52 within last 3 months) Ever experience any problems No 02/08/25 16:52 with transfusion(s)? Specify any problems Hx of Preganancy in last 3 N/A 02/08/25 16:52 Months Nurse Filling Out Transfusion KGLAZIER 02/08/25 16:52 & Questions: Date: 02/08/25 02/08/25 16:52 Time: 16:57 02/08/25 16:52 Patient unable to answer at this time (ie. confused, unrespo /Reproduction History /Reproductive History - envelope sealer: /Reproductive Hx- envelope sealer Hx Now No 02/09/25 21:15 Gestational Age (in weeks): EDC: Hx Hx Para Hx Section SAB No 02/09/25 21:15 Active Medications Active Medications: Current Medications Generic Name Dose Route Start Last Admin Trade Name Freq PRN Reason Stop Dose Admin Acetaminophen 650 mg 02/08/25 16:51 02/10/25 05:48 Acetaminophen 325 Mg Tablet PO 650 mg Q6H PRN PRN Administration Pain 1-10 Or Fever >100.7 Acetaminophen 500 mg 02/09/25 11:40 Acetaminophen 500 Mg Tablet PO Q6H PRN pain Acyclovir 800 mg 02/08/25 22:00 02/09/25 21:31 Acyclovir 800 Mg Tablet PO 800 mg BID CUBA Administration Albuterol Sulfate 2.5 mg 02/08/25 16:51 Albuterol 2.5 Mg/3 Ml Vial.Neb. INHALATION Q2H PRN PRN SOB &/OR WHEEZING Allopurinol 300 mg 02/09/25 10:00 02/09/25 09:05 Allopurinol 300 Mg Tablet PO 300 mg DAILY CUBA Administration Diltiazem HCl 180 mg 02/10/25 10:00 Diltiazem Cd 180 Mg Capsule PO DAILY CUBA Protocol Cefepime HCl 2 gm/ Sodium 100 mls @ 200 mls/hr 02/08/25 22:00 02/10/25 06:00 Chloride IV Infused Q8 CUBA Infusion Sodium Chloride 250 mls @ 15 mls/hr 02/08/25 17:21 IV .[id number] PRN Saline Flush Sodium Chloride 500 mls @ 15 mls/hr 02/08/25 17:21 IV PRN PRN Blood Transfusion Sodium Chloride 250 mls @ 15 mls/hr 02/08/25 17:21 IV .[id number] PRN Additional IVPB Infusion Vancomycin IV-PHARMACY TO DOSE 500 mls @ 250 mls/hr 02/09/25 05:17 1 each/ Sodium Chloride IV PRN PRN Rx to Dose Protocol Vancomycin HCl 2,000 mg/ 540 mls @ 250 mls/hr 02/09/25 19:00 02/10/25 06:21 Sodium Chloride IV 250 mls/hr Q12H CUBA Administration Amiodarone HCl 360 mg/ 200 mls @ 16.667 mls/hr 02/09/25 12:00 02/10/25 06:00 Dextrose CONT INF 0.5 mg/min .Q12H CUBA 16.7 mls/hr Infusion 0.5 MG/MIN Lactated Ringer's 1,000 mls @ 15 mls/hr 02/10/25 06:45 02/10/25 07:15 IV 15 mls/hr .Q48H CUBA Administration Melatonin 10 mg 02/08/25 16:51 Melatonin 10 Mg Tablet PO QHS PRN PRN INSOMNIA Metoprolol Tartrate 25 mg 02/09/25 22:00 02/09/25 21:30 Metoprolol Tartrate 25 Mg Tablet PO 25 mg BID CUBA Administration Protocol Nutritional Formula (Lactose Free) 120 ml 02/09/25 08:00 02/09/25 16:24 Ensure Plus High Protein 120 Ml Liquid PO Not Given TIDCM CUBA Ondansetron HCl 4 mg 02/08/25 16:51 Ondansetron 4 Mg/2 Ml Vial IV Q8H PRN PRN NAUSEA/VOMITING Polyethylene Glycol 17 gm 02/08/25 22:00 02/09/25 21:31 Polyethylene Glycol 3350 17 Gm Packet PO 17 gm BID CUBA Administration Senna/Docusate Sodium 2 tablet 02/08/25 22:00 02/09/25 21:30 Senna/Docusate Sodium 1 Tablet PO 2 tablet BID CUBA Administration Sodium Chloride 10 - 40 ml 02/08/25 17:21 02/10/25 05:11 0.9 % Nacl (Sterile) Posiflush 10 Ml IV 10 ml UD PRN Administration Port access or dressing change Sodium Chloride 10 - 40 ml 02/08/25 17:21 02/10/25 06:11 0.9% Saline Lock 10 Ml Syringe IV 10 ml UD PRN Administration Port-a-Cath (VAD)/R Port Flush Sodium Chloride 10 - 40 ml 02/08/25 17:21 0.9% Saline Lock 10 Ml Syringe IV UD PRN SALINE FLUSH Sodium Chloride 1 spray 02/10/25 01:13 Sodium Chloride 0.65% 1 [place].Btl NASAL TID PRN PRN NASAL DRYNESS Vancomycin Protocol 1 lab 02/10/25 17:30 Vancomycin Trough/Random Due MC 02/10/25 19:30 DAILY CUBA PFSH Medical History Nocturia Urinary frequency Encounter for education Acute myeloid leukemia Wears glasses History of leukemia Former smoker History of Holter monitoring History of echocardiogram Cardiology follow-up encounter History of irregular heartbeat MDS (myelodysplastic syndrome) Secondary pneumonia RSV (acute bronchiolitis due to respiratory syncytial virus) Atrial fibrillation with RVR Acute bronchitis Acute upper respiratory infection Hematuria Health care maintenance Dilated aortic root BPH (benign prostatic hyperplasia) Splenomegaly CLL (chronic lymphocytic leukemia) Dyspnea Infected wound Nonhealing surgical wound Thrombocytopenia due to drugs Neutropenia Thrombocytopenia Leukopenia Non Hodgkin's lymphoma Pain in left lower leg Neutropenic fever Hypoxia Pancytopenia Contact with and (suspected) exposure to other viral communicable diseases Tobacco abuse counseling Hypertension Anemia Chronic kidney disease (CKD) Pancytopenia Obesity Thrombocytopenia Paroxysmal supraventricular tachycardia (11/27/19) Near syncope (09/2019) Home Medications ?Medication ?Instructions ?Recorded ?Last Taken ?Type acetaminophen 500 mg tablet 500 mg PO Q6H PRN pain 10/14/23 02/10/25 History (Tylenol Extra Strength) diltiazem HCl 180 mg 180 mg PO DAILY 90 days #90 caps 09/22/24 02/07/25 Rx capsule,extended release 24 hr acyclovir 800 mg tablet 800 mg PO BID 11/25/24 02/08/25 History allopurinol 300 mg tablet 300 mg PO .COMPLEX #30 tabs 12/26/24 02/07/25 Rx ondansetron 8 mg disintegrating 8 mg PO Q8H PRN nausea and 12/26/24 02/07/25 Rx tablet vomiting #30 tabs venetoclax 100 mg tablet 200 mg PO QDAY 12/29/24 02/07/25 History (Venclexta) metoprolol tartrate 50 mg tablet 25 mg (1/2 x 50 mg) PO BID 90 days 01/19/25 02/08/25 Rx #90 tabs Allergy/AdvReac Type Severity Reaction Status Date / Time ciprofloxacin (From Cipro) Allergy Intermediate Hives Verified 02/08/25 12:33 ibrutinib (From Imbruvica) Allergy dyspnea/diz Verified 02/08/25 12:33 zness rituximab Allergy Shortness Verified 02/08/25 12:33 of breath prochlorperazine (From AdvReac Unknown Dizziness Verified 02/08/25 12:33 Compazine) apixaban (From Eliquis) AdvReac Chest Verified 02/08/25 12:33 tightness Family History Father Diabetes Hypertension Mother Dementia Surgical History History of tonsillectomy History of bone marrow biopsy Social History household members: spouse Smoking Status: Former smoker Tobacco: How many years used: 15 how long ago did patient quit smoking: Many years ago alcohol intake: never substance use type: does not use caffeine: Yes Review of Systems (Anesthesia) ROS Narrative System reviewed and no additional complaints, except as documented.
[2025-02-10 08:40] LABS: Anion Gap 11 (5-15); BUN 19 mg/dL (4-19); BUN/Creat Ratio 21.8 RATIO (10-20); Calcium,Total 8.3 mg/dL (7.6-11.0); Carbon Dioxide 23.7 mmol/L (21.0-32.0); Chloride 103 mmol/L (98-108); Estimated Creatinine Clearance 109.57 ml/min (50-250); Glucose 113 mg/dL (70-99); Potassium 3.8 mmol/L (3.3-5.1)
--- NOTE | 2025-02-10 08:44 | OP.PCM_ITS ---
Procedures Cardiovascular CF Procedures 33xxx-39xxx: 92292 Removal tunneled cv cath
--- NOTE | 2025-02-10 08:44 | PCM.OPRPT ---
Procedures Cardiovascular CF Procedures 33xxx-39xxx: 48338 Removal tunneled cv cath Operative Report (Standard) Operative Information Date of Procedure: 02/10/25 Pre-Operative Diagnosis: 1. MSSA bacteremia 2. Indwelling Port-A-Cath concern for this representing infectious source of #1 Post-Operative Diagnosis: Same Surgery/Procedure Performed: Port-A-Cath removal lacquer machine feeder: No Type of Anesthesia: MAC/Supplemental RN Documented Start/Stop Times: Operation Date: 02/10/25 07:30 Case Time Into Pre-Op 02/10/25 06:37 Anesthesia Start 02/10/25 07:51 Into Room 02/10/25 07:51 Procedure Start 02/10/25 08:13 Procedure End 02/10/25 08:41 Anesthesia End 02/10/25 08:51 Out of Room 02/10/25 08:51 Into Recovery 02/10/25 08:55 Out of Recovery 02/10/25 09:16 Procedure Start Time: 08:13 Procedure Stop Time: 08:41 Select all DRAINS/GRAFTS/IMPLANTS that apply: None Estimated Blood Loss: 10 Specimen collected: No Description of surgery: After appropriate identification the preoperative holding area operative consents were confirmed. Patient brought to the operating room was positioned supine the operating table. He was initiated with sedation by anesthesia. Preoperative antibiotics were not needed as patient was receiving continuous IV antibiotic therapy for his infection. Port was presently accessed with a butterfly needle and this was removed. The port site was prepped and draped in usual sterile fashion. Formal timeout followed to confirm patient and procedure. The procedure was begun with local block over the port pocket using 10 mL 0.5% bupivacaine plain. The port pocket was opened and the port was dissected free of a few attachments. Then the retention sutures in the upper portions of the port were cut and the port was extracted from the port pocket. In one motion the port catheter was withdrawn as pressure was held at the insertion site in the neck and over the tunneling. This pressure was maintained for 4 minutes and the site was reinspected. There was some persistent ooze along the wound base so pressure was applied for another minute. The wound was then copiously irrigated with 450 mL of Irrisept. The site was reinspected again and I chose to address some persistent issues lateral portion of the wound with selective electrocautery taking care to avoid thermal spread to the superficial layers. Finally it appeared we had hemostasis so the wound was closed with 3-0 interrupted nylon sutures to try to maintain some drainage of the port pocket. This resulted in some bleeding just from the needle so once the suture line was completed additional pressure was applied. Ultimately the wound was dressed with Telfa and Tegaderm. A second compression dressing with folded 4 x 4 gauze and additional Tegaderms was placed atop this first dressing. Sedation was then lightened and patient was taken to PACU for ongoing monitoring. Surgical Findings: ? Purulence within port pocket ? Diffuse oozing with focus in the lateral aspect of the cavity requiring selective electrocautery Complications Complications: No
--- NOTE | 2025-02-10 08:58 | PCM.POST.ANE ---
Anesthesia: Postop Eval I Current Vital Signs Temperature: 97.8 F Pulse Rate: 114 Blood Pressure: 127/98 Respiratory Rate: 20 Pulse Ox: 95 Oxygen Delivery Method: Room Air Assessment Airway patent: Yes Spontaneous unlabored respirations: Yes Mental status: Awake and Calm nausea: No Vomiting: No Anesthesia Complication: No Fluid Hydration Crystalloid volume administer (ml): 800 Total IV fluid infused: 800 Progress Note Anesthesia document: Postop Eval 1 completed: Yes
[2025-02-10] MEDS: Sodium Chloride 0.65% 1 SPRAY SPRAY.BTL NASAL (09:51)
[2025-02-10] MEDS: Senna/Docusate Sodium 1 Tablet 2 TABLET PO ×2 (09:51→21:45)
[2025-02-10] MEDS: Polyethylene Glycol 3350 17 GM PACKET PO ×2 (09:51→21:45)
--- NOTE | 2025-02-10 11:14 | PN.ID_ITS ---
Physical Exam Narrative Port removed this AM, feeling better, no fever, no n/v/d. No cough. Const alert and no apparent distress Resp normal air movement and clear to auscultation bilaterally Cardio regular rate and regular rhythm GI soft to palpation, non-tender and non-distended Skin no rashes or lesions noted ID ID: Route of nutrition/ use of supplements: [] Nutritional Intake: [] IV Site: [] Lay Catheter: [] Assessment & Plan Assessment/Plan (1) Neutropenic fever: PLAN: Neutropenic fever with MSSA bacteremia per pcr, suspected source is infected L chest port. Has been on chemo for AML. Elevated tbili, but RUQ and abd CT showed no infection. Will repeat bcx, no veg seen on TTE. Port removed this AM 02/10/[address] Danielson. Cont vanc/cefepime. Cont acyclovir for pro phylaxis. Will follow, d/w Dr. Gonzales (2) MSSA bacteremia: (3) SAMANTHA (acute kidney injury):
--- NOTE | 2025-02-10 19:01 | PN.HOSP_ITS ---
Reason for Visit Chief Complaint: Fever Subjective Subjective Patient was seen and examined today, he states he feels better, his CBC is improved. Patient's Mediport was taken out today, he spiked a temperature this afternoon. Patient remains in atrial fibs at this time with a rate of about 100 Objective Data Objective Data Vital Signs: Vital Signs Temp Pulse Resp BP Pulse Ox O2 Del Method 99.8 F H 111 H 21 H 126/89 H 95 Room Air 02/10/25 18:00 02/10/25 18:00 02/10/25 18:00 02/10/25 18:00 02/10/25 18:00 02/10/25 18:00 Oxygen Delivery Method Room Air Weight: 95.8 kg Body Mass Index (BMI) 28.6 Intake & Output: Intake and Output for Last 24 Hours 02/08/25 02/09/25 02/10/25 23:59 23:59 23:59 Intake Total 3734.56 / 4117.86 4219.36 / 4219.36 2386.96 / 2386.96 Output Total 1250 / 2450 3600 / 3600 1760 / 1760 Balance 2484.56 / 1667.86 619.36 / 619.36 626.96 / 626.96 Lab / Micro Data 02/11/25 04:25 02/10/25 05:10 Labs: Laboratory Results - last 24 hr 02/08/25 13:26: Blood Type Cancelled, A1 Antigen Typing Cancelled, Rho(D) Type Cancelled, Antibody Screen Cancelled, Crossmatch See Detail 02/10/25 05:10: WBC 0.2 L*, RBC 3.17 L, Hgb 9.3 L, Hct 26.5 L, MCV 83.6, MCH 29.3, MCHC 35.1, RDW Std Deviation 43.8, RDW Coeff of Екатерина 14.6, Plt Count 23 L*, MPV TNP, Immature Gran % (Auto) 0.000, Neut % (Auto) 14.3 L, Lymph % (Auto) 85.7 H, Mcpherson % (Auto) 0.0, Eos % (Auto) 0.0, Baso % (Auto) 0.0, Absolute Neuts (auto) 0.0 L, Absolute Lymphs (auto) 0.18 L, Nucleated RBC % 0, Platelet Estimate MKD DEC, Sodium 137, Potassium 3.8, Chloride 103, Carbon Dioxide 23.7, Anion Gap 11, BUN 19, Creatinine 0.85, Estim Creat Clear Calc 109.57, Est GFR (MDRD) Non-Af 99, BUN/Creatinine Ratio 21.8 H, Glucose 113 H, Calcium 8.3 Micro: Microbiology 02/08/25 13:26 Blood Culture (Wb) - Anticubital Left Blood Culture - Preliminary No growth in 48 hours. 02/08/25 12:49 Urine, Clean Catch Urine Culture - Final Culture exhibits no growth. 02/08/25 13:26 Blood Culture (Wb) - Anticubital Left Bacteria Detection (PCR) - Final Staphylococcus aureus 02/08/25 13:26 Blood Culture (Wb) - Anticubital Left Blood Culture - Preliminary Staphylococcus aureus 02/08/25 17:38 Mucosa - Nasopharyngeal Coronavirus COVID-19 PCR - Final 02/08/25 17:38 Mucosa - Nasopharyngeal Respiratory Panel (PCR) - Final Rhythm Strip Rhythm Strip: Sinus Rhythm Rate: 94 Ectopy: None Physical Exam Narrative alert, oriented x3 and no apparent distress Constitutional Narrative: Patient appears unwell General Appearance: cooperative, well kempt and well developed Orientation / Consciousness: awake, oriented to person, oriented to place and oriented to time HEENT normocephalic, head/scalp atraumatic and moist oral mucous membranes Eyes PERRL, EOMs intact bilaterally and conjunctivae normal Neck supple, no JVD, thyroid normal and no carotid bruits General: trachea midline Resp normal respiratory effort, no retractions, no use of accessory muscles and clear to auscultation bilaterally Auscultation: Negative for rales, rhonchi or wheezes Cardio S1 normal heart sound, S2 normal heart sound, no murmurs, no rub and no gallops Cardio Narrative: Heart rate and rhythm is irregular GI normal to inspection, nondistended, normoactive bowel sounds, soft to palpation, non-tender and non-distended Extremity no clubbing, cyanosis or edema Skin Skin Narrative: Patient has redness and induration over the area of his Mediport. Neuro oriented x3, CN's II-XII intact bilaterally, moves all extremities, no focal motor deficits and no sensory deficits noted Sensorium / Orientation: awake and alert Speech: speech normal Psych affect normal Assessment & Plan Assessment/Plan (1) MSSA bacteremia: PLAN: Plan 1. MSSA bacteremia-patient is currently on antibiotic coverage per infectious diseases, his Mediport will be removed today, the area around the Mediport was reddened and tender.\ #2 pancytopenia secondary to AML-patient will receive platelets and packed red blood cells today, labs will be monitored #3 paroxysmal atrial fibrillation-patient is currently on amiodarone and metoprolol #4 acute kidney injury-labs will be monitored #5 elevated bilirubin-etiology unclear, labs will be monitored Total clinical time spent by myself addressing the patient's medical issues, reviewing all of his data, and collaborating with patient's care team: 35 minutes Charges/Coding Visit Charges Inpatient E&M: 73355 Subs Hosp L2
[2025-02-10 19:42] LABS: Vancomycin, Trough Level 16.7 ug/mL (5.0-15.0)
--- NOTE | 2025-02-10 20:11 | PCM.RX.CS ---
Consult Antibiotic Management Pharmacy has been consulted to manage selected antibiotic: Vancomycin Type of Intervention Type of Consult: Follow-up Suspected Infection Suspected Infection: Other (Neutropenic Fever) Prior Doses of Antibiotics Prior Doses of Antibiotics Received/Current Regimen: 02/09/2025195502/10/202521 Labs Labs: Sodium 137 mmol/L (133-145) 02/10/25 05:10 Potassium 3.8 mmol/L (3.3-5.1) 02/10/25 05:10 Chloride 103 mmol/L (98-108) 02/10/25 05:10 Carbon Dioxide 23.7 mmol/L (21.0-32.0) 02/10/25 05:10 Anion Gap 11 (5-15) 02/10/25 05:10 BUN 19 mg/dL (4-19) 02/10/25 05:10 Creatinine 0.85 mg/dL (0.70-1.20) 02/10/25 05:10 Est GFR (MDRD) Non-Af 99 (>60) 02/10/25 05:10 BUN/Creatinine Ratio 21.8 RATIO (10-20) H 02/10/25 05:10 Glucose 113 mg/dL (70-99) H 02/10/25 05:10 Vancomycin Trough 16.7 ug/mL (15.0-20.0) H 02/10/25 18:49 Microbiology Microbiology: Microbiology 02/08/25 13:26 Blood Culture (Wb) - Anticubital Left Blood Culture - Preliminary No growth in 48 hours. 02/08/25 12:49 Urine, Clean Catch Urine Culture - Final Culture exhibits no growth. 02/08/25 13:26 Blood Culture (Wb) - Anticubital Left Bacteria Detection (PCR) - Final Staphylococcus aureus 02/08/25 13:26 Blood Culture (Wb) - Anticubital Left Blood Culture - Preliminary Staphylococcus aureus 02/08/25 17:38 Mucosa - Nasopharyngeal Coronavirus COVID-19 PCR - Final 02/08/25 17:38 Mucosa - Nasopharyngeal Respiratory Panel (PCR) - Final Dosing Weight Weight used for dosin.8 kg Estimated Creatinine Clearance Estimated Creatinine Clearance: 109.6 ml/m Goal Trough Goal Trough: 15-20 mcg/mL Pharmacy Plan for Drug Dosing Pharmacy Plan for Drug Dosing: VANCOMYCIN LEVEL RECEIVED Current Vancomycin Dose: 2000 MG BID Number of Doses Received: 2 Vancomycin Level: 16.7 Hours Since Last Dose: 12.25 Renal Function: 085 mg/dL , 109.5 ml/min Renal Function Trend: Stable Lab/Micro: Vancomycin Plan/Comments: Level is therapeutic, will continue dose at 2000 mg BID. Pharmacy Service will continue to monitor and adjust dosing as required. Pending Level: 02/12/2025 @[id number] Follow-Up Labs Follow-Up Labs: Trough: Vancomycin Date/Time Labs Ordered Labs to be done on [date and time ordered]: 02/12/2025 @[id number]
[2025-02-10] MEDS: Lidocaine 5% 35GM Tube 1 APPLIC TOPICAL (20:29)
--- NOTE | 2025-02-10 22:04 | EKG12_ITS ---
Test Reason : CHEST PAIN Blood Pressure : */* mmHG Vent. Rate : 114 BPM Atrial Rate : * BPM P-R Int : * ms QRS Dur : 84 ms QT Int : 276 ms P-R-T Axes : * 23 42 degrees QTcB Int : 380 ms Atrial fibrillation with rapid ventricular response Abnormal ECG When compared with ECG of 08-Feb-2025 17:38, MANUAL COMPARISON REQUIRED DATA IS UNCONFIRMED Confirmed by CLEMENTINE AMADOR, NANCY ([id number]), movie editor ROLANDA FIELDS ([id number]) on 02/13/2025 9:46:38 AM Referred By: Molly Dillon Confirmed By: NANCY SPRING MD
--- NOTE | 2025-02-10 22:45 | EKG12_ITS ---
Test Reason : AF Blood Pressure : */* mmHG Vent. Rate : 73 BPM Atrial Rate : 73 BPM P-R Int : 172 ms QRS Dur : 92 ms QT Int : 386 ms P-R-T Axes : 64 24 45 degrees QTcB Int : 425 ms Normal sinus rhythm Normal ECG When compared with ECG of 09-Feb-2025 19:04, MANUAL COMPARISON REQUIRED DATA IS UNCONFIRMED Confirmed by CLEMENTINE AMADOR, NANCY ([id number]), editorial manager DEMI GUSMAN ([id number]) on 02/13/2025 1:07:58 PM Referred By: Molly Dillon Confirmed By: NANCY SPRING MD
--- NOTE | 2025-02-10 23:17 | PCM.HOSP.N ---
Hospitalist Note Notified by nursing that patient sinus rhythm. Will discontinue the amiodarone drip. Patient already taking diltiazem as well as metoprolol tartrate and will continue with those.
[2025-02-11] VITALS (13 sets, daily range): BP systolic 112–148; BP diastolic 65–98; PULSE 91–120; RESP 18–30; TEMP 36.9–37.8; O2SAT 92–98
[2025-02-11] MEDS: Cefepime HCl 2 GM in 0.9% Normal Saline (100mL MB+) 100 ML IV ×3 (05:18→22:29)
[2025-02-11 05:39] LABS: Hematocrit 23.7 % (40-54); Hemoglobin 8.2 g/dL (13.0-16.5); Immature Granulocytes Count 0.000 X10^3/uL (0.0-0.0); Mean Corp Hgb Conc 34.6 g/dL (32-36); Mean Corpuscular Volume 84.9 fL (80-94); Mean Platelet Vol. 9.5 fl (6.2-12.0); NRBC Flagged by Analyzer 0 % (0-5); POSITIVE COUNT YES; POSITIVE DIFFERENTIAL YES; POSITIVE MORPHOLOGY YES; RBC Distribution Width CV 14.6 % (11.6-14.6); RBC Distribution Width SD 44.6 fl (35.1-43.9); Red Blood Count 2.79 M/mm3 (4.6-6.2)
[2025-02-11 05:44] LABS: Differential Indicated SCAN CRITERIA MET; Platelet Count 22 K/mm3 (150-450); White Blood Count 0.2 K/mm3 (4.4-11.0)
[2025-02-11] MEDS: Vancomycin HCl 2,000 MG in 0.9% Normal Saline (500mL Bag) 500 ML 250 MG IV ×2 (06:19→19:50)
[2025-02-11 07:12] LABS: Differential Comment SCANNED
[2025-02-11] MEDS: Ensure Plus High Protein 120 ML LIQUID PO (09:17)
[2025-02-11] MEDS: Senna/Docusate Sodium 1 Tablet 2 TABLET PO ×2 (09:18→20:56)
[2025-02-11] MEDS: Polyethylene Glycol 3350 17 GM PACKET PO ×2 (09:18→20:56)
--- NOTE | 2025-02-11 10:51 | PCM.PN.SRG ---
Subjective Subjective Patient denies any pain at previous port site. Current temp 99.2 Objective Data Objective Data Vital Signs: Vital Signs Temp Pulse Resp BP Pulse Ox O2 Del Method O2 Flow Rate 99.2 F H 117 H 18 133/93 H 98 Nasal Cannula 2 02/11/25 09:21 02/11/25 09:21 02/11/25 09:21 02/11/25 09:21 02/11/25 09:21 02/11/25 09:21 02/11/25 09:21 Oxygen Flow Rate (L/min) 2 Oxygen Delivery Method Nasal Cannula Weight: 211 lb 3.245 oz Body Mass Index (BMI) 28.6 Intake & Output: Intake and Output for Last 24 Hours 02/09/25 02/10/25 02/11/25 23:59 23:59 23:59 Intake Total 4219.36 / 4219.36 3110.46 / 3110.46 640 / 640 Output Total 3600 / 3600 1760 / 2410 1200 / 1200 Balance 619.36 / 619.36 1350.46 / 700.46 -560 / -560 Lab / Micro Data 02/11/25 04:25 02/10/25 05:10 Labs: Laboratory Results - last 24 hr 02/10/25 18:49: Vancomycin Trough 16.7 H 02/11/25 04:25: WBC 0.2 L*, RBC 2.79 L, Hgb 8.2 L, Hct 23.7 L, MCV 84.9, MCH 29.4, MCHC 34.6, RDW Std Deviation 44.6 H, RDW Coeff of Екатерина 14.6, Plt Count 22 L*, MPV 9.5, Immature Gran % (Auto) 0.000, Neut % (Auto) 20.0 L, Lymph % (Auto) 80.0 H, [place] % (Auto) 0.0, Eos % (Auto) 0.0, Baso % (Auto) 0.0, Absolute Neuts (auto) 0.0 L, Absolute Lymphs (auto) 0.12 L, Nucleated RBC % 0, Differential Comment SCANNED, Diff Path Review N/A, Platelet Estimate MKD DEC Micro: Microbiology 02/08/25 13:26 Blood Culture (Wb) - Anticubital Left Bacteria Detection (PCR) - Final Staphylococcus aureus 02/08/25 13:26 Blood Culture (Wb) - Anticubital Left Blood Culture - Final Staphylococcus aureus 02/08/25 13:26 Blood Culture (Wb) - Anticubital Left Blood Culture - Preliminary No growth in 48 hours. 02/08/25 12:49 Urine, Clean Catch Urine Culture - Final Culture exhibits no growth. 02/08/25 17:38 Mucosa - Nasopharyngeal Coronavirus COVID-19 PCR - Final 02/08/25 17:38 Mucosa - Nasopharyngeal Respiratory Panel (PCR) - Final Rhythm Strip Rhythm Strip: Sinus Rhythm Rate: 94 Ectopy: None Physical Exam Narrative Left chest previous port site darker red in color no blanching, no drainage, loosely closed with nylon interrupted Const oriented x3 and no apparent distress Resp normal respiratory effort Assessment & Plan Assessment/Plan (1) MSSA bacteremia: PLAN: Patient is a 59-year-old male with diagnosis of AML undergoing chemotherapy via left Port-A-Cath placed 01/17/2025 status post port removal due to an abscess a bacteremia. Previous dressing was removed and another Telfa and tape were placed. No active drainage. Continue antibiotics per AMERICA Arita M.D. Pager: [phone] [facility] [address] [place] [address], Outpatient Pavilion, [address] [place] [address] Office: [phone]
[2025-02-11] MEDS: Hydrocortisone 2.5% Crm 1 APPLIC TOPICAL (14:57)
--- NOTE | 2025-02-11 18:06 | PCM.PN.HOSP ---
Reason for Visit Chief Complaint: Fever Subjective Subjective Patient was seen and examined today, earlier this morning, his amiodarone drip was stopped due to the fact he went back into sinus rhythm, at the time of my exam today he was back in atrial fibrillation with a rate of 100?110, later this afternoon it was noted that the patient's heart rate was up to 150 at times, I called and discussed the case with cardiology they recommended placing the patient back on amiodarone with p.o. administration and stopping his Cardizem and increasing his metoprolol to 50 mg twice daily. Patient remains pancytopenic, his hemoglobin dropped to 8.2 platelet count is 22,000, total white blood cell count was 200. Objective Data Objective Data Vital Signs: Vital Signs Temp Pulse Resp BP Pulse Ox O2 Del Method O2 Flow Rate 100 F H 120 H 18 112/65 92 Room Air 2 02/11/25 15:44 02/11/25 15:44 02/11/25 15:44 02/11/25 15:44 02/11/25 15:44 02/11/25 15:45 02/11/25 15:44 Oxygen Flow Rate (L/min) 2 Oxygen Delivery Method Room Air Weight: 95.8 kg Body Mass Index (BMI) 28.6 Intake & Output: Intake and Output for Last 24 Hours 02/09/25 02/10/25 02/11/25 23:59 23:59 23:59 Intake Total 4219.36 / 4219.36 3110.46 / 3110.46 1115 / 1115 Output Total 3600 / 3600 1760 / 2410 1200 / 1200 Balance 619.36 / 619.36 1350.46 / 700.46 -85 / -85 Lab / Micro Data 02/11/25 04:25 02/10/25 05:10 Labs: Laboratory Results - last 24 hr 02/10/25 18:49: Vancomycin Trough 16.7 H 02/11/25 04:25: WBC 0.2 L*, RBC 2.79 L, Hgb 8.2 L, Hct 23.7 L, MCV 84.9, MCH 29.4, MCHC 34.6, RDW Std Deviation 44.6 H, RDW Coeff of Екатерина 14.6, Plt Count 22 L*, MPV 9.5, Immature Gran % (Auto) 0.000, Neut % (Auto) 20.0 L, Lymph % (Auto) 80.0 H, [place] % (Auto) 0.0, Eos % (Auto) 0.0, Baso % (Auto) 0.0, Absolute Neuts (auto) 0.0 L, Absolute Lymphs (auto) 0.12 L, Nucleated RBC % 0, Differential Comment SCANNED, Diff Path Review N/A, Platelet Estimate MKD DEC Micro: Microbiology 02/09/25 10:38 Blood Culture (Wb) - Anticubital Right Blood Culture - Preliminary No growth in 48 hours. 02/08/25 13:26 Blood Culture (Wb) - Anticubital Left Bacteria Detection (PCR) - Final Staphylococcus aureus 02/08/25 13:26 Blood Culture (Wb) - Anticubital Left Blood Culture - Final Staphylococcus aureus 02/08/25 13:26 Blood Culture (Wb) - Anticubital Left Blood Culture - Preliminary No growth in 48 hours. 02/08/25 12:49 Urine, Clean Catch Urine Culture - Final Culture exhibits no growth. 02/08/25 17:38 Mucosa - Nasopharyngeal Coronavirus COVID-19 PCR - Final 02/08/25 17:38 Mucosa - Nasopharyngeal Respiratory Panel (PCR) - Final Rhythm Strip Rhythm Strip: Sinus Rhythm Rate: 94 Ectopy: None Physical Exam Narrative alert, oriented x3 and no apparent distress Constitutional Narrative: Patient appears unwell General Appearance: cooperative, well kempt and well developed Orientation / Consciousness: awake, oriented to person, oriented to place and oriented to time HEENT normocephalic, head/scalp atraumatic and moist oral mucous membranes Eyes PERRL, EOMs intact bilaterally and conjunctivae normal Neck supple, no JVD, thyroid normal and no carotid bruits General: trachea midline Resp normal respiratory effort, no retractions, no use of accessory muscles and clear to auscultation bilaterally Auscultation: Negative for rales, rhonchi or wheezes Cardio S1 normal heart sound, S2 normal heart sound, no murmurs, no rub and no gallops Cardio Narrative: Heart rate and rhythm is irregular GI normal to inspection, nondistended, normoactive bowel sounds, soft to palpation, non-tender and non-distended Extremity no clubbing, cyanosis or edema Skin Skin Narrative: Patient has redness and induration over the area of his Mediport. Neuro oriented x3, CN's II-XII intact bilaterally, moves all extremities, no focal motor deficits and no sensory deficits noted Sensorium / Orientation: awake and alert Speech: speech normal Psych affect normal Assessment & Plan Assessment/Plan (1) MSSA bacteremia: PLAN: Plan 1. MSSA bacteremia-patient is currently on antibiotic coverage per infectious diseases, his Mediport will be removed today, the area around the Mediport was reddened and tender.\ #2 pancytopenia secondary to AML-patient will receive platelets and packed red blood cells today, labs will be monitored #3 paroxysmal atrial fibrillation-patient's metoprolol will be increased to 50 mg twice daily, he will be taken off of Cardizem, and amiodarone 200 mg twice daily will be administered #4 acute kidney injury-labs will be monitored #5 elevated bilirubin-etiology unclear, labs will be monitored Total clinical time spent by myself addressing the patient's medical issues, reviewing all of his data, and collaborating with patient's care team: 35 minutes Charges/Coding Visit Charges Inpatient E&M: 74462 Subs Hosp L2
[2025-02-11] MEDS: 0.9 % NaCl (Sterile) Posiflush 10 mL IV (19:52)
[2025-02-12] VITALS (9 sets, daily range): BP systolic 117–135; BP diastolic 73–92; PULSE 90–118; RESP 15–19; TEMP 37.7–38.2; O2SAT 94–97
[2025-02-12] MEDS: Cefepime HCl 2 GM in 0.9% Normal Saline (100mL MB+) 100 ML IV ×3 (05:53→21:33)
[2025-02-12] MEDS: 0.9 % NaCl (Sterile) Posiflush 10 mL IV (05:53)
[2025-02-12 07:02] LABS: Hematocrit 22.3 % (40-54); Hemoglobin 7.8 g/dL (13.0-16.5); Immature Granulocytes Count 0.000 X10^3/uL (0.0-0.0); Mean Corp Hgb Conc 35.0 g/dL (32-36); Mean Corpuscular Volume 84.2 fL (80-94); Mean Platelet Vol. 10.7 fl (6.2-12.0); NRBC Flagged by Analyzer 0 % (0-5); POSITIVE COUNT YES; POSITIVE DIFFERENTIAL YES; POSITIVE MORPHOLOGY YES; RBC Distribution Width CV 14.7 % (11.6-14.6); RBC Distribution Width SD 44.1 fl (35.1-43.9); Red Blood Count 2.65 M/mm3 (4.6-6.2)
[2025-02-12 07:13] LABS: Differential Indicated SCAN CRITERIA MET; Platelet Count 18 K/mm3 (150-450); White Blood Count 0.1 K/mm3 (4.4-11.0)
[2025-02-12 07:48] LABS: AST(SGOT) 9 U/L (<=37); Alanine Aminotransfer ALT/SGPT 19 U/L (<=46); Albumin, Serum 2.5 g/dL (3.4-4.8); Alkaline Phosphatase 89 U/L (40-129); Anion Gap 9 (5-15); BUN 13 mg/dL (4-19); BUN/Creat Ratio 17.9 RATIO (10-20); Calcium,Total 8.2 mg/dL (7.6-11.0); Carbon Dioxide 27.4 mmol/L (21.0-32.0); Chloride 101 mmol/L (98-108); Estimated Creatinine Clearance 127.58 ml/min (50-250); Globulin 2.4 g/dL (2.2-4.2); Glucose 115 mg/dL (70-99); Potassium 3.4 mmol/L (3.3-5.1); Vancomycin, Trough Level 18.1 ug/mL (5.0-15.0)
[2025-02-12] MEDS: Vancomycin HCl 2,000 MG in 0.9% Normal Saline (500mL Bag) 500 ML 250 MG IV ×2 (09:40→19:04)
--- NOTE | 2025-02-12 11:37 | PN.SURG_ITS ---
Subjective Subjective Patient has no complaints. Objective Data Objective Data Vital Signs: Vital Signs Temp Pulse Resp BP Pulse Ox O2 Del Method O2 Flow Rate 100.5 F H 112 H 15 131/92 H 94 Room Air 2 02/12/25 09:46 02/12/25 09:46 02/12/25 09:46 02/12/25 09:46 02/12/25 09:50 02/12/25 09:50 02/12/25 03:02 Oxygen Flow Rate (L/min) 2 Oxygen Delivery Method Room Air Weight: 211 lb 3.245 oz Body Mass Index (BMI) 28.6 Intake & Output: Intake and Output for Last 24 Hours 02/10/25 02/11/25 02/12/25 23:59 23:59 23:59 Intake Total 3110.46 / 3110.46 2795 / 2795 400 / 400 Output Total 1760 / 2410 1500 / 1500 775 / 775 Balance 1350.46 / 700.46 1295 / 1295 -375 / -375 Lab / Micro Data 02/12/25 06:32 02/12/25 06:32 Labs: Laboratory Results - last 24 hr 02/12/25 06:32: WBC 0.1 L*, RBC 2.65 L, Hgb 7.8 L, Hct 22.3 L, MCV 84.2, MCH 29.4, MCHC 35.0, RDW Std Deviation 44.1 H, RDW Coeff of Екатерина 14.7 H, Plt Count 18 L*, MPV 10.7, Immature Gran % (Auto) 0.000, Neut % (Auto) 0.0 L, Lymph % (Auto) 100.0 H, [place] % (Auto) 0.0, Eos % (Auto) 0.0, Baso % (Auto) 0.0, Absolute Neuts (auto) 0.0 L, Absolute Lymphs (auto) 0.14 L, Nucleated RBC % 0, Differential Comment COMMENT, Platelet Estimate MKD DEC, Sodium 138, Potassium 3.4, Chloride 101, Carbon Dioxide 27.4, Anion Gap 9, BUN 13, Creatinine 0.73, Estim Creat Clear Calc 127.58, Est GFR (MDRD) Non-Af 104, BUN/Creatinine Ratio 17.9, Glucose 115 H, Calcium 8.2, Total Bilirubin 1.43 H, AST 9, ALT 19, Alkaline Phosphatase 89, Total Protein 4.9 L, Albumin 2.5 L, Globulin 2.4, Albumin/Globulin Ratio 1.0, Vancomycin Trough 18.1 H Micro: Microbiology 02/09/25 10:38 Blood Culture (Wb) - Anticubital Right Blood Culture - Preliminary No growth in 48 hours. 02/08/25 13:26 Blood Culture (Wb) - Anticubital Left Bacteria Detection (PCR) - Final Staphylococcus aureus 02/08/25 13:26 Blood Culture (Wb) - Anticubital Left Blood Culture - Final Staphylococcus aureus 02/08/25 13:26 Blood Culture (Wb) - Anticubital Left Blood Culture - Preliminary No growth in 48 hours. 02/08/25 12:49 Urine, Clean Catch Urine Culture - Final Culture exhibits no growth. 02/08/25 17:38 Mucosa - Nasopharyngeal Coronavirus COVID-19 PCR - Final 02/08/25 17:38 Mucosa - Nasopharyngeal Respiratory Panel (PCR) - Final Rhythm Strip Rhythm Strip: Sinus Rhythm Rate: 94 Ectopy: None Physical Exam Narrative Left chest previous port site darker red in color no blanching, no drainage, loosely closed with nylon interrupted?no drainage from yesterday on the dressing Const oriented x3 and no apparent distress Resp normal respiratory effort Assessment & Plan Assessment/Plan (1) MSSA bacteremia: PLAN: Patient is a 59-year-old male with diagnosis of AML undergoing chemotherapy via left Port-A-Cath placed 01/17/2025 status post port removal due to an abscess a bacteremia. No additional drainage overnight. Previous port site loosely closed with nylon sutures. Continue antibiotics per ID Linnea Arita M.D. Pager: [phone] [facility] [address] [place] [address], [facility]patient [facility], [address] [place] [address] Office: [phone] Charges/Coding Visit Charges Inpatient E&M: 93461 Subs Hosp L2
[2025-02-12] MEDS: Albuterol 2.5 MG/3 ML VIAL.NEB. INHALATION (14:58)
--- NOTE | 2025-02-12 17:01 | PN.HOSP_ITS ---
Reason for Visit Chief Complaint: Fever Subjective Subjective Patient was seen and examined today, he still remains pancytopenic with his hemoglobin 7.8. I will repeat his CBC tomorrow, it is likely he will need to be transfused. Platelet count was 18,000 today but I do not anticipate having to transfuse the patient platelets and less than gets below 10,000 unless he has bleeding above 10,000. Patient is still mildly febrile, I talked with infectious diseases today and they wanted to wait to have a PICC line inserted. Objective Data Objective Data Vital Signs: Vital Signs Temp Pulse Resp BP Pulse Ox O2 Del Method O2 Flow Rate 100.8 F H 118 H 18 117/75 94 Room Air 2 02/12/25 16:33 02/12/25 16:33 02/12/25 16:33 02/12/25 16:33 02/12/25 16:51 02/12/25 16:51 02/12/25 03:02 Oxygen Flow Rate (L/min) 2 Oxygen Delivery Method Room Air Weight: 95.8 kg Body Mass Index (BMI) 28.6 Intake & Output: Intake and Output for Last 24 Hours 02/10/25 02/11/25 02/12/25 23:59 23:59 23:59 Intake Total 3110.46 / 3110.46 2795 / 2795 2040 / 2040 Output Total 1760 / 2410 1500 / 1500 2575 / 2575 Balance 1350.46 / 700.46 1295 / 1295 -535 / -535 Lab / Micro Data 02/12/25 06:32 02/12/25 06:32 Labs: Laboratory Results - last 24 hr 02/12/25 06:32: WBC 0.1 L*, RBC 2.65 L, Hgb 7.8 L, Hct 22.3 L, MCV 84.2, MCH 29.4, MCHC 35.0, RDW Std Deviation 44.1 H, RDW Coeff of Екатерина 14.7 H, Plt Count 18 L*, MPV 10.7, Immature Gran % (Auto) 0.000, Neut % (Auto) 0.0 L, Lymph % (Auto) 100.0 H, [place] % (Auto) 0.0, Eos % (Auto) 0.0, Baso % (Auto) 0.0, Absolute Neuts (auto) 0.0 L, Absolute Lymphs (auto) 0.14 L, Nucleated RBC % 0, Differential Comment COMMENT, Platelet Estimate MKD DEC, Sodium 138, Potassium 3.4, Chloride 101, Carbon Dioxide 27.4, Anion Gap 9, BUN 13, Creatinine 0.73, Estim Creat Clear Calc 127.58, Est GFR (MDRD) Non-Af 104, BUN/Creatinine Ratio 17.9, Glucose 115 H, Calcium 8.2, Total Bilirubin 1.43 H, AST 9, ALT 19, Alkaline Phosphatase 89, Total Protein 4.9 L, Albumin 2.5 L, Globulin 2.4, Albumin/Globulin Ratio 1.0, Vancomycin Trough 18.1 H Micro: Microbiology 02/10/25 10:56 Blood Culture (Wb) - Venous Blood Culture - Preliminary No growth in 48 hours. 02/09/25 10:38 Blood Culture (Wb) - Anticubital Right Blood Culture - Preliminary No growth in 48 hours. 02/08/25 13:26 Blood Culture (Wb) - Anticubital Left Bacteria Detection (PCR) - Final Staphylococcus aureus 02/08/25 13:26 Blood Culture (Wb) - Anticubital Left Blood Culture - Final Staphylococcus aureus 02/08/25 13:26 Blood Culture (Wb) - Anticubital Left Blood Culture - Preliminary No growth in 48 hours. 02/08/25 12:49 Urine, Clean Catch Urine Culture - Final Culture exhibits no growth. 02/08/25 17:38 Mucosa - Nasopharyngeal Coronavirus COVID-19 PCR - Final 02/08/25 17:38 Mucosa - Nasopharyngeal Respiratory Panel (PCR) - Final Rhythm Strip Rhythm Strip: Sinus Rhythm Rate: 94 Ectopy: None Physical Exam Narrative alert, oriented x3 and no apparent distress Constitutional Narrative: Patient appears unwell General Appearance: cooperative, well kempt and well developed Orientation / Consciousness: awake, oriented to person, oriented to place and oriented to time HEENT normocephalic, head/scalp atraumatic and moist oral mucous membranes Eyes PERRL, EOMs intact bilaterally and conjunctivae normal Neck supple, no JVD, thyroid normal and no carotid bruits General: trachea midline Resp normal respiratory effort, no retractions, no use of accessory muscles and clear to auscultation bilaterally Auscultation: Negative for rales, rhonchi or wheezes Cardio S1 normal heart sound, S2 normal heart sound, no murmurs, no rub and no gallops Cardio Narrative: Heart rate and rhythm is irregular GI normal to inspection, nondistended, normoactive bowel sounds, soft to palpation, non-tender and non-distended Extremity no clubbing, cyanosis or edema Skin Skin Narrative: Patient has redness and induration over the area of his Mediport. Neuro oriented x3, CN's II-XII intact bilaterally, moves all extremities, no focal motor deficits and no sensory deficits noted Sensorium / Orientation: awake and alert Speech: speech normal Psych affect normal Assessment & Plan Assessment/Plan (1) MSSA bacteremia: PLAN: Plan 1. 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 I will increase the patient's metoprolol to 75 mg twice daily due to periods of tachycardia today #4 acute kidney injury-patient's creatinine and BUN are normal #5 elevated bilirubin-etiology unclear, labs will be monitored as needed, patient's bilirubin today was 1.43 Total clinical time spent by myself addressing the patient's medical issues, reviewing all of his data, and collaborating with patient's care team: 35 minutes Charges/Coding Visit Charges Inpatient E&M: 09362 Subs Hosp L2
--- NOTE | 2025-02-12 17:40 | RAD_ITS ---
PROCEDURE: CHEST 1 VIEW (PORTABLE) 02/12/2025 REASON FOR EXAM: HYPOXIA TECHNIQUE: Frontal view of the chest. COMPARISON: 02/08/2025 FINDINGS: Nodular density left midlung not apparent on the prior study. Possibly airspace disease. New opacity left upper lobe. RAD/Chest 1 View (Portable) IMPRESSION: New parenchymal opacities in the left lung. Possible pneumonia. Neoplasm seem s unlikely given recent study from 01/17/2025 Reading [facility]
--- NOTE | 2025-02-12 18:07 | PCM.RX.CS ---
Consult Antibiotic Management Pharmacy has been consulted to manage selected antibiotic: Vancomycin Type of Intervention Type of Consult: Follow-up Suspected Infection Suspected Infection: Other Labs Labs: Sodium 138 mmol/L (133-145) 02/12/25 06:32 Potassium 3.4 mmol/L (3.3-5.1) 02/12/25 06:32 Chloride 101 mmol/L (98-108) 02/12/25 06:32 Carbon Dioxide 27.4 mmol/L (21.0-32.0) 02/12/25 06:32 Anion Gap 9 (5-15) 02/12/25 06:32 BUN 13 mg/dL (4-19) 02/12/25 06:32 Creatinine 0.73 mg/dL (0.70-1.20) 02/12/25 06:32 Est GFR (MDRD) Non-Af 104 (>60) 02/12/25 06:32 BUN/Creatinine Ratio 17.9 RATIO (10-20) 02/12/25 06:32 Glucose 115 mg/dL (70-99) H 02/12/25 06:32 Vancomycin Trough 18.1 ug/mL (5.0-15.0) H 02/12/25 06:32 Microbiology Microbiology: Microbiology 02/10/25 10:56 Blood Culture (Wb) - Venous Blood Culture - Preliminary No growth in 48 hours. 02/09/25 10:38 Blood Culture (Wb) - Anticubital Right Blood Culture - Preliminary No growth in 48 hours. 02/08/25 13:26 Blood Culture (Wb) - Anticubital Left Bacteria Detection (PCR) - Final Staphylococcus aureus 02/08/25 13:26 Blood Culture (Wb) - Anticubital Left Blood Culture - Final Staphylococcus aureus 02/08/25 13:26 Blood Culture (Wb) - Anticubital Left Blood Culture - Preliminary No growth in 48 hours. 02/08/25 12:49 Urine, Clean Catch Urine Culture - Final Culture exhibits no growth. 02/08/25 17:38 Mucosa - Nasopharyngeal Coronavirus COVID-19 PCR - Final 02/08/25 17:38 Mucosa - Nasopharyngeal Respiratory Panel (PCR) - Final Goal Trough Goal Trough: 15-20 mcg/mL Pharmacy Plan for Drug Dosing Pharmacy Plan for Drug Dosing: VANCOMYCIN LEVEL RECEIVED Current Vancomycin Dose: 2000mg q12h (,19) Number of Doses Received: x5 of current dose Vancomycin Level: 18.1 Hours Since Last Dose: 10.5 hours since last 2000mg dose Renal Function: SrCr 0.73 Renal Function Trend: SrCr improving Lab/Micro: Vancomycin Plan/Comments: resulted trough of 18.1 is within the ordered goal trough range of 15-20. recommend continuing current dose of 2000mg q12h and checking a trough prior to the 4th dose Pending Level: 02/13/25 at 1830 Pharmacy Service will continue to monitor and adjust dosing as required. Follow-Up Labs Follow-Up Labs: Trough: Vancomycin (02/13/25 @ 1830)
[2025-02-12] MEDS: Senna/Docusate Sodium 1 Tablet 2 TABLET PO (21:39)
[2025-02-13] VITALS (11 sets, daily range): BP systolic 112–147; BP diastolic 69–98; PULSE 97–120; RESP 12–18; TEMP 37.6–38.3; O2SAT 90–96
[2025-02-13] MEDS: Cefepime HCl 2 GM in 0.9% Normal Saline (100mL MB+) 100 ML IV ×3 (05:25→21:00)
[2025-02-13] MEDS: Vancomycin HCl 2,000 MG in 0.9% Normal Saline (500mL Bag) 500 ML 250 MG IV (07:17)
[2025-02-13 07:36] LABS: Hematocrit 23.1 % (40-54); Hemoglobin 7.9 g/dL (13.0-16.5); Mean Corp Hgb Conc 34.2 g/dL (32-36); Mean Corpuscular Volume 85.6 fL (80-94); Mean Platelet Vol. 9.3 fl (6.2-12.0); POSITIVE COUNT YES; POSITIVE DIFFERENTIAL YES; POSITIVE MORPHOLOGY YES; RBC Distribution Width CV 14.6 % (11.6-14.6); RBC Distribution Width SD 44.6 fl (35.1-43.9); Red Blood Count 2.70 M/mm3 (4.6-6.2)
[2025-02-13 07:39] LABS: Differential Indicated MANUAL DIFF; Platelet Count 18 K/mm3 (150-450); White Blood Count 0.1 K/mm3 (4.4-11.0)
--- NOTE | 2025-02-13 08:20 | PCM.PN.HOSP ---
Reason for Visit Chief Complaint: Fever Subjective Subjective Patient without complaints today. States he is feeling well. States he is tired because he did not sleep well again last night. No other complaints at this time. Awaiting ID input for PICC line placement and decision about long-term antibiotics. Hopeful for discharge in the next 24 hours but patient is still neutropenic. Objective Data Objective Data Vital Signs: Vital Signs Temp Pulse Resp BP Pulse Ox O2 Del Method O2 Flow Rate 100.1 F H 105 H 16 134/85 H 94 Room Air 2 02/13/25 03:45 02/13/25 05:27 02/13/25 03:45 02/13/25 05:27 02/13/25 03:45 02/13/25 07:27 02/12/25 03:02 Oxygen Flow Rate (L/min) 2 Oxygen Delivery Method Room Air Weight: 95.8 kg Body Mass Index (BMI) 28.6 Intake & Output: Intake and Output for Last 24 Hours 02/11/25 02/12/25 02/13/25 23:59 23:59 23:59 Intake Total 2795 / 2795 2680 / 3280 1000 / 1000 Output Total 1500 / 1500 2575 / 3825 1250 / 1250 Balance 1295 / 1295 105 / -545 -250 / -250 Lab / Micro Data 02/13/25 07:24 02/12/25 06:32 Labs: Laboratory Results - last 24 hr 02/13/25 07:24: WBC 0.1 L*, RBC 2.70 L, Hgb 7.9 L, Hct 23.1 L, MCV 85.6, MCH 29.3, MCHC 34.2, RDW Std Deviation 44.6 H, RDW Coeff of Екатерина 14.6, Plt Count 18 L*, MPV 9.3, Neut % (Auto) Not Reportable Micro: Microbiology 02/11/25 07:08 Blood Culture (Wb) - Anticubital Right Blood Culture - Preliminary No growth in 48 hours. 02/10/25 10:56 Blood Culture (Wb) - Venous Blood Culture - Preliminary No growth in 48 hours. 02/09/25 10:38 Blood Culture (Wb) - Anticubital Right Blood Culture - Preliminary No growth in 48 hours. 02/08/25 13:26 Blood Culture (Wb) - Anticubital Left Bacteria Detection (PCR) - Final Staphylococcus aureus 02/08/25 13:26 Blood Culture (Wb) - Anticubital Left Blood Culture - Final Staphylococcus aureus 02/08/25 13:26 Blood Culture (Wb) - Anticubital Left Blood Culture - Preliminary No growth in 48 hours. 02/08/25 12:49 Urine, Clean Catch Urine Culture - Final Culture exhibits no growth. 02/08/25 17:38 Mucosa - Nasopharyngeal Coronavirus COVID-19 PCR - Final 02/08/25 17:38 Mucosa - Nasopharyngeal Respiratory Panel (PCR) - Final Radiography Diagnostic Testing: Radiology Impression Chest X-Ray 02/12/25 17:40 IMPRESSION: New parenchymal opacities in the left lung. Possible pneumonia. Neoplasm seems unlikely given recent study from 01/17/2025 Reading Location: [facility] Rhythm Strip Rhythm Strip: Sinus Rhythm Rate: 94 Ectopy: None Physical Exam Const alert, oriented x3, no apparent distress and well nourished Constitutional Narrative: Overweight, upper middle-aged, white male, lying in bed, appears comfortable, nontoxic HEENT head/scalp atraumatic Head and Scalp: normocephalic Resp normal respiratory effort, no retractions, no use of accessory muscles and clear to auscultation bilaterally Auscultation: Negative for rales, rhonchi or wheezes Cardio regular rate, regular rhythm, S1 normal heart sound, S2 normal heart sound, no murmurs, no rub, no gallops and no clicks GI normal to inspection, nondistended, normoactive bowel sounds, soft to palpation and non-tender Extremity no clubbing, cyanosis or edema Skin Skin Narrative: Left upper chest with some surrounding ecchymosis and area of Mediport removal, incision is clean dry and intact and sutures appear well, no drainage Neuro oriented x3, moves all extremities and no focal motor deficits Speech: speech normal Psych affect normal Psych Narrative: Very pleasant, interacts appropriately Assessment & Plan Assessment/Plan (1) Sepsis: (2) SAMANTHA (acute kidney injury): (3) MSSA bacteremia: (4) Pancytopenia: PLAN: Plan Sepsis secondary to MSSA bacteremia secondary to Mediport infection - Mediport has been removed - Continue antibiotics per infectious disease - Will likely need PICC line and antibiotics prior to discharge will await final recommendations from ID - Blood cultures are now cleared x 3 days - Patient is still neutropenic - Patient met sepsis criteria with endorgan dysfunction including SAMANTHA, acute hyperbilirubinemia and lactic acidosis - Patient still with some intermittent fevers Pancytopenia/neutropenia secondary to AML - CBC is stable in all cell lines - Do not transfuse platelets unless under 10,000 - Hemoglobin is stable comparatively speaking - Platelet count is low but stable and greater than 10,000 without any signs of spontaneous bleeding - Continue to monitor counts daily SAMANTHA - Resolved - Serum creatinine on presentation was 1.44 and now 0.73. PAF - patient remains in sinus rhythm but did have some A-fib with RVR so was started on amiodarone IV then transition to oral - Continue home diltiazem - Stop amiodarone - Continue metoprolol - Patient not anticoagulated due to thrombocytopenia Hyperbilirubinemia - Resolving - Repeat lab in a.m. - Appears to be related to acute sepsis - Gallbladder ultrasound unremarkable AML - Patient is currently on oral and IV chemo - Chemo is on hold - Outpatient follow-up with oncology after discharge - Continue home prophylactic medications Essential hypertension - Continue metoprolol - Restart diltiazem - Anticipate blood pressure should tolerate History of tobacco abuse - Remote - Encouraged ongoing cessation DVT prophylaxis - SCDs - Chemoprophylaxis is contraindicated due to thrombocytopenia CODE STATUS -DNR CCA with no intubation Charges/Coding Visit Charges Inpatient E&M: 04704 Subs Hosp L2
--- NOTE | 2025-02-13 09:02 | PN.SURG_ITS ---
Subjective Subjective Patient evaluated resting comfortably in bed. He denies any incisional pain in the left upper chest. Objective Data Objective Data Vital Signs: Vital Signs Temp Pulse Resp BP Pulse Ox O2 Del Method O2 Flow Rate 100.1 F H 105 H 16 134/85 H 94 Room Air 2 02/13/25 03:45 02/13/25 05:27 02/13/25 03:45 02/13/25 05:27 02/13/25 03:45 02/13/25 07:27 02/12/25 03:02 Oxygen Flow Rate (L/min) 2 Oxygen Delivery Method Room Air Weight: 211 lb 3.245 oz Body Mass Index (BMI) 28.6 Intake & Output: Intake and Output for Last 24 Hours 02/11/25 02/12/25 02/13/25 23:59 23:59 23:59 Intake Total 2795 / 2795 2680 / 3280 1000 / 1000 Output Total 1500 / 1500 2575 / 3825 1250 / 1250 Balance 1295 / 1295 105 / -545 -250 / -250 Lab / Micro Data 02/13/25 07:24 02/12/25 06:32 Labs: Laboratory Results - last 24 hr 02/13/25 07:24: WBC 0.1 L*, RBC 2.70 L, Hgb 7.9 L, Hct 23.1 L, MCV 85.6, MCH 29.3, MCHC 34.2, RDW Std Deviation 44.6 H, RDW Coeff of Екатерина 14.6, Plt Count 18 L*, MPV 9.3, Neut % (Auto) Not Reportable Micro: Microbiology 02/08/25 13:26 Blood Culture (Wb) - Anticubital Left Bacteria Detection (PCR) - Final Staphylococcus aureus 02/08/25 13:26 Blood Culture (Wb) - Anticubital Left Blood Culture - Final Staphylococcus aureus 02/11/25 07:08 Blood Culture (Wb) - Anticubital Right Blood Culture - Preliminary No growth in 48 hours. 02/10/25 10:56 Blood Culture (Wb) - Venous Blood Culture - Preliminary No growth in 48 hours. 02/09/25 10:38 Blood Culture (Wb) - Anticubital Right Blood Culture - Preliminary No growth in 48 hours. 02/08/25 13:26 Blood Culture (Wb) - Anticubital Left Blood Culture - Preliminary No growth in 48 hours. 02/08/25 12:49 Urine, Clean Catch Urine Culture - Final Culture exhibits no growth. 02/08/25 17:38 Mucosa - Nasopharyngeal Coronavirus COVID-19 PCR - Final 02/08/25 17:38 Mucosa - Nasopharyngeal Respiratory Panel (PCR) - Final Radiography Diagnostic Testing: Radiology Impression Chest X-Ray 02/12/25 17:40 IMPRESSION: New parenchymal opacities in the left lung. Possible pneumonia. Neoplasm seems unlikely given recent study from 01/17/2025 Reading Location: [facility] Rhythm Strip Rhythm Strip: Sinus Rhythm Rate: 94 Ectopy: None Physical Exam Skin Skin Narrative: Left upper chest- skin with moderate amount of ecchymosis noted. Incision completely closed Assessment & Plan Assessment/Plan (1) MSSA bacteremia: PLAN: Plan I am following this patient in conjunction with Dr. Arita. She will independently evaluate this patient. Labs reviewed. Blood cultures showing no growth as on 02/09, 02/10 and 02/11 Patient will need to have sutures removed in 7-10 days from the procedure Patient okay for discharge from a surgical standpoint We will continue to monitor this patient throughout his stay Charges/Coding Visit Charges Inpatient E&M: 85484 Subs Hosp L1 (no charge)
[2025-02-13 10:02] LABS: Neutrophil-Segmented 30 % (47-70); Total Cells Counted 10 (MANUAL DIFF)
[2025-02-13 10:03] LABS: Red Cell Morphology NORM C+C NORMAL (NORM C&C)
--- NOTE | 2025-02-13 10:22 | CASEMGMT ---
Social Work SW spoke w/pt in room in regard to both his current health issues and recent loss of his son. Pt states he is doing fine. Pt did not elaborate. SW inquired if he would like resources, pt declined. SW let pt know will continue to be available to speak to pt while he is here. Pt thanked SW but states he does not not talk to strangers. SW remains available should pt change his mind. DELTA Hayden
--- NOTE | 2025-02-13 14:41 | CT_ITS ---
PROCEDURE: CT CHEST, ABD, PEL W/CONTRAST 02/13/2025 REASON FOR EXAM: NEUTROPENIC FEVER; history of AML/CLL TECHNIQUE: Chest, abdomen and pelvis CT with intravenous and oral contrast. Coronal and Sagittal reconstruction series were provided. One or more dose reduction techniques were used (e.g., Automated exposure control, adjustment of the mA and/or kV according to patient size, use of iterative reconstruction technique. IV CONTRAST: Isovue 370 VOLUME: 99mL RADIATION DOSE SUMMARY: DLP: 1754.29 mGycm COMPARISON: Abdominal CT 02/08/2025, chest CT 09/06/2024. FINDINGS: Lungs/pleura: Multiple patchy nodular foci of airspace consolidation throughout both lungs, most likely reflecting multifocal pneumonia, possibly of atypical/fungal etiology. Small left pleural effusion. Mild bilateral upper lobe predominant centrilobular emphysema. Patent central airways. Mediastinum/nodes: No suspicious mediastinal or hilar lymph node enlargement. Diffuse increased number of mediastinal lymph nodes, most likely reactive. No axillary lymphadenopathy. Heart: Normal in size. No pericardial effusion. Mild coronary artery calcifications. Aorta: Normal in course and caliber. Mild atherosclerotic disease. Liver: Unremarkable, no focal lesion. Gallbladder: Unremarkable, no biliary ductal dilatation. Spleen: Probable mild splenomegaly. No focal lesion. Pancreas: Unremarkable. Adrenals: Unremarkable, no nodules. Kidneys: Normal in size with symmetric enhancement. No urolithiasis or hydronephrosis. Multiple bilateral simple appearing renal cysts, the largest on the left measuring up to 4.1 cm. Bladder: Unremarkable. Reproductive Organs: Unremarkable, nonenlarged prostate. Bowel: Unremarkable, no evidence of obstruction or active inflammatory process. Oral contrast propagates to the terminal ileum/cecum. Normal appendix. Nonspecific fluid within the colon. Lymph nodes: No enlarged abdominopelvic lymph nodes. Peritoneum / Retroperitoneum: No ascites or free air. Bones: No significant abnormality. No osseous lytic or blastic lesion identified. CT/CT Chest, Abd, Pel w/Contrast IMPRESSION: 1. Bilateral multifocal nodular foci of airspace consolidation, most likely inf ectious/inflammatory. Consider atypical infectious etiologies such as fungal pneumonia. Small left pleural effusion. 2. Likely reactive increased number of nonenlarged mediastinal lymph nodes. 3. No acute or active inflammatory intra-abdominal pathology. Reading Location: [id number]
--- NOTE | 2025-02-13 15:17 | PCM.PN.ID ---
Physical Exam Narrative Feeling better, denies chills, cough, SOB, mouth sores, headache, chest pain, abd pain, n/v/d, rash. Const alert and no apparent distress General Appearance: cooperative HEENT HEENT Narrative: no lesions or thrush Resp normal air movement and clear to auscultation bilaterally Cardio regular rate and regular rhythm GI soft to palpation, non-tender and non-distended Extremity General Extremity: Negative for edema Skin no rashes or lesions noted ID ID: Route of nutrition/ use of supplements: [] Nutritional Intake: [] IV Site: [] Lay Catheter: [] Assessment & Plan Assessment/Plan (1) Neutropenic fever: PLAN: Neutropenic fever with MSSA bacteremia, suspected source is infected L chest port. Has been on chemo for AML. Elevated tbili, but RUQ and abd CT showed no infection. Bcx clear since 02/09/25. Port removed this AM 02/10/[address] Danielson. Cont vanc/cefepime. Cont acyclovir for prophylaxis. Ongoing fever, recommend MIAN and CTs. Will also check full resp pcr panel. Will follow, d/w Dr. Scott (2) MSSA bacteremia: (3) SAMANTHA (acute kidney injury):
[2025-02-13] MEDS: Vancomycin Trough/Random Due 1 LAB MC (19:26)
[2025-02-13 19:46] LABS: Vancomycin, Trough Level 20.2 ug/mL (5.0-15.0)
--- NOTE | 2025-02-13 19:53 | PCM.RX.CS ---
Consult Antibiotic Management Pharmacy has been consulted to manage selected antibiotic: Vancomycin Type of Intervention Type of Consult: Follow-up Suspected Infection Suspected Infection: Other (neutropenic fever) Labs Labs: Sodium 138 mmol/L (133-145) 02/12/25 06:32 Potassium 3.4 mmol/L (3.3-5.1) 02/12/25 06:32 Chloride 101 mmol/L (98-108) 02/12/25 06:32 Carbon Dioxide 27.4 mmol/L (21.0-32.0) 02/12/25 06:32 Anion Gap 9 (5-15) 02/12/25 06:32 BUN 13 mg/dL (4-19) 02/12/25 06:32 Creatinine 0.73 mg/dL (0.70-1.20) 02/12/25 06:32 Est GFR (MDRD) Non-Af 104 (>60) 02/12/25 06:32 BUN/Creatinine Ratio 17.9 RATIO (10-20) 02/12/25 06:32 Glucose 115 mg/dL (70-99) H 02/12/25 06:32 Vancomycin Trough 20.2 ug/mL (5.0-15.0) H 02/13/25 18:19 Microbiology Microbiology: Microbiology 02/13/25 15:57 Mucosa - Nasopharyngeal Respiratory Panel (PCR) - Final 02/08/25 13:26 Blood Culture (Wb) - Anticubital Left Blood Culture - Final No growth in 5 days. 02/08/25 13:26 Blood Culture (Wb) - Anticubital Left Bacteria Detection (PCR) - Final Staphylococcus aureus 02/08/25 13:26 Blood Culture (Wb) - Anticubital Left Blood Culture - Final Staphylococcus aureus 02/11/25 07:08 Blood Culture (Wb) - Anticubital Right Blood Culture - Preliminary No growth in 48 hours. 02/10/25 10:56 Blood Culture (Wb) - Venous Blood Culture - Preliminary No growth in 48 hours. 02/09/25 10:38 Blood Culture (Wb) - Anticubital Right Blood Culture - Preliminary No growth in 48 hours. 02/08/25 12:49 Urine, Clean Catch Urine Culture - Final Culture exhibits no growth. 02/08/25 17:38 Mucosa - Nasopharyngeal Coronavirus COVID-19 PCR - Final 02/08/25 17:38 Mucosa - Nasopharyngeal Respiratory Panel (PCR) - Final Pharmacy Plan for Drug Dosing Pharmacy Plan for Drug Dosing: VANCOMYCIN LEVEL RECEIVED Current Vancomycin Dose: 2000MG Q12 Number of Doses Received: 8 Vancomycin Level: 20.2 MG/DL Hours Since Last Dose: 11 Renal Function: SCr 0.73 mg/dL, CrCl 127 mL/min Renal Function Trend: STABLE Lab/Micro: staph in blood cx Vancomycin Plan/Comments: 11 hour trough is slightly supratherapeutic at 20.2 mg/dL (goal 15-20). Will decrease dose to 1750mg Q12 but will start later tonight at 2300 to allow level to come down further. Will get a trough prior to 4th dose of new regimen. Pending Level: 02/15/25 @ 1030 Pharmacy Service will continue to monitor and adjust dosing as required.
[2025-02-13] MEDS: 0.9% Saline Lock 10 ML Syringe IV (21:00)
[2025-02-13] MEDS: Vancomycin HCl 1,750 MG in 0.9% Normal Saline (500mL Bag) 500 ML 250 MG IV (22:00)
[2025-02-14] VITALS (9 sets, daily range): BP systolic 110–139; BP diastolic 62–80; PULSE 71–115; RESP 14–20; TEMP 37.9–39.5; O2SAT 91–96
[2025-02-14] MEDS: Cefepime HCl 2 GM in 0.9% Normal Saline (100mL MB+) 100 ML IV (05:39)
[2025-02-14 06:09] LABS: Hematocrit 23.1 % (40-54); Hemoglobin 7.8 g/dL (13.0-16.5); Immature Granulocytes Count 0.000 X10^3/uL (0.0-0.0); Mean Corp Hgb Conc 33.8 g/dL (32-36); Mean Corpuscular Volume 85.9 fL (80-94); Mean Platelet Vol. 9.8 fl (6.2-12.0); NRBC Flagged by Analyzer 0 % (0-5); POSITIVE COUNT YES; POSITIVE DIFFERENTIAL YES; RBC Distribution Width CV 14.8 % (11.6-14.6); RBC Distribution Width SD 45.7 fl (35.1-43.9); Red Blood Count 2.69 M/mm3 (4.6-6.2); White Blood Count 0.1 K/mm3 (4.4-11.0)
[2025-02-14 06:32] LABS: Platelet Count 17 K/mm3 (150-450)
[2025-02-14 06:33] LABS: Differential Indicated SCAN CRITERIA MET
[2025-02-14 06:37] LABS: AST(SGOT) 17 U/L (<=37); Alanine Aminotransfer ALT/SGPT 27 U/L (<=46); Albumin, Serum 2.6 g/dL (3.4-4.8); Alkaline Phosphatase 100 U/L (40-129); Anion Gap 10 (5-15); BUN 14 mg/dL (4-19); BUN/Creat Ratio 17.2 RATIO (10-20); Calcium,Total 8.2 mg/dL (7.6-11.0); Carbon Dioxide 29.7 mmol/L (21.0-32.0); Chloride 99 mmol/L (98-108); Estimated Creatinine Clearance 116.42 ml/min (50-250); Globulin 2.4 g/dL (2.2-4.2); Glucose 117 mg/dL (70-99); Magnesium 2.0 mg/dL (1.5-2.2); Potassium 3.1 mmol/L (3.3-5.1)
--- NOTE | 2025-02-14 06:49 | PCM.PN.SRG ---
Subjective Subjective Patient evaluated resting comfortably in bed. He denies any concerns with the previous port site. Objective Data Objective Data Vital Signs: Vital Signs Temp Pulse Resp BP Pulse Ox O2 Del Method O2 Flow Rate 102.3 F H 103 H 16 119/80 92 Nasal Cannula 2 02/14/25 02:48 02/14/25 02:48 02/14/25 02:48 02/14/25 02:48 02/14/25 02:48 02/14/25 02:48 02/14/25 02:48 Oxygen Flow Rate (L/min) 2 Oxygen Delivery Method Nasal Cannula Weight: 211 lb 3.245 oz Body Mass Index (BMI) 28.6 Intake & Output: Intake and Output for Last 24 Hours 02/12/25 02/13/25 02/14/25 23:59 23:59 23:59 Intake Total 2680 / 3280 1840 / 2140 935 / 935 Output Total 2575 / 3825 2500 / 2500 200 / 200 Balance 105 / -545 -660 / -360 735 / 735 Lab / Micro Data 02/14/25 05:35 02/14/25 05:35 Labs: Laboratory Results - last 24 hr 02/13/25 07:24: WBC 0.1 L*, RBC 2.70 L, Hgb 7.9 L, Hct 23.1 L, MCV 85.6, MCH 29.3, MCHC 34.2, RDW Std Deviation 44.6 H, RDW Coeff of Екатерина 14.6, Plt Count 18 L*, MPV 9.3, Neut % (Auto) Not Reportable, Absolute Neuts (auto) 0.0 L, Absolute Lymphs (auto) 0.10 L, Total Counted 10, Neutrophils % (Manual) 30 L, Lymphocytes % (Manual) 70 H, Differential Comment COMMENT, Diff Path Review May simran, Platelet Estimate MKD DEC, RBC Morphology NORM C+C 02/13/25 18:19: Vancomycin Trough 20.2 H 02/14/25 05:35: WBC 0.1 L*, RBC 2.69 L, Hgb 7.8 L, Hct 23.1 L, MCV 85.9, MCH 29.0, MCHC 33.8, RDW Std Deviation 45.7 H, RDW Coeff of Екатерина 14.8 H, Plt Count 17 L*, MPV 9.8, Immature Gran % (Auto) 0.000, Neut % (Auto) 8.3 L, Lymph % (Auto) 91.7 H, [place] % (Auto) 0.0, Eos % (Auto) 0.0, Baso % (Auto) 0.0, Absolute Neuts (auto) 0.0 L, Absolute Lymphs (auto) 0.11 L, Nucleated RBC % 0, Sodium 139, Potassium 3.1 L, Chloride 99, Carbon Dioxide 29.7, Anion Gap 10, BUN 14, Creatinine 0.80, Estim Creat Clear Calc 116.42, Est GFR (MDRD) Non-Af 101, BUN/Creatinine Ratio 17.2, Glucose 117 H, Calcium 8.2, Phosphorus 3.2, Magnesium 2.0, Total Bilirubin 1.10, AST 17, ALT 27, Alkaline Phosphatase 100, Total Protein 5.0 L, Albumin 2.6 L, Globulin 2.4, Albumin/Globulin Ratio 1.1, TSH 2.510 Micro: Microbiology 02/13/25 15:57 Mucosa - Nasopharyngeal Respiratory Panel (PCR) - Final 02/08/25 13:26 Blood Culture (Wb) - Anticubital Left Blood Culture - Final No growth in 5 days. 02/08/25 13:26 Blood Culture (Wb) - Anticubital Left Bacteria Detection (PCR) - Final Staphylococcus aureus 02/08/25 13:26 Blood Culture (Wb) - Anticubital Left Blood Culture - Final Staphylococcus aureus 02/11/25 07:08 Blood Culture (Wb) - Anticubital Right Blood Culture - Preliminary No growth in 48 hours. 02/10/25 10:56 Blood Culture (Wb) - Venous Blood Culture - Preliminary No growth in 48 hours. 02/09/25 10:38 Blood Culture (Wb) - Anticubital Right Blood Culture - Preliminary No growth in 48 hours. 02/08/25 12:49 Urine, Clean Catch Urine Culture - Final Culture exhibits no growth. 02/08/25 17:38 Mucosa - Nasopharyngeal Coronavirus COVID-19 PCR - Final 02/08/25 17:38 Mucosa - Nasopharyngeal Respiratory Panel (PCR) - Final Radiography Diagnostic Testing: Radiology Impression Chest/Abdomen/Pelvis CT 02/13/25 14:41 IMPRESSION: 1. Bilateral multifocal nodular foci of airspace consolidation, most likely infectious/inflammatory. Consider atypical infectious etiologies such as fungal pneumonia. Small left pleural effusion. 2. Likely reactive increased number of nonenlarged mediastinal lymph nodes. 3. No acute or active inflammatory intra-abdominal pathology. Reading Location: [id number] Rhythm Strip Rhythm Strip: Sinus Rhythm Rate: 94 Ectopy: None Physical Exam Chest Chest Narrative: Left chest- incision intact. Minimal amount of ecchymosis and erythema. Assessment & Plan Assessment/Plan (1) MSSA bacteremia: (2) Encounter for care related to Port-a-Cath: PLAN: Plan I am following this patient in conjunction with Dr. Danielson. He has independently evaluated this patient. Incision appears to be healing CT chest/ab/pel obtained yesterday is demonstrating bilateral pneumonia Plan to remove sutures 2 weeks from the procedure We will continue to monitor this patient Charges/Coding Visit Charges Inpatient E&M: 82261 Subs Hosp L1 (no charge; post-op)
[2025-02-14 07:16] LABS: Differential Comment SCANNED
--- NOTE | 2025-02-14 08:04 | PCM.PN.HOSP ---
Reason for Visit Chief Complaint: Fever Subjective Subjective Patient states he is feeling well but continues to have fevers. Tmax overnight was 102.3. Patient has no specific complaints at this time. Plan is for MIAN tomorrow and this was explained to the patient. We did discuss the results on the CT indicating an atypical pneumonia and the addition of voriconazole for pulmonary coverage. Await further cultures. Await ID input for antimicrobial changes. Patient remains neutropenic. Objective Data Objective Data Vital Signs: Vital Signs Temp Pulse Resp BP Pulse Ox O2 Del Method O2 Flow Rate 101.6 F H 103 H 16 119/80 92 Nasal Cannula 2 02/14/25 07:45 02/14/25 02:48 02/14/25 02:48 02/14/25 02:48 02/14/25 02:48 02/14/25 02:48 02/14/25 02:48 Oxygen Flow Rate (L/min) 2 Oxygen Delivery Method Nasal Cannula Weight: 95.8 kg Body Mass Index (BMI) 28.6 Intake & Output: Intake and Output for Last 24 Hours 02/12/25 02/13/25 02/14/25 23:59 23:59 23:59 Intake Total 2680 / 3280 1840 / 2140 935 / 935 Output Total 2575 / 3825 2500 / 2500 200 / 200 Balance 105 / -545 -660 / -360 735 / 735 Lab / Micro Data 02/14/25 05:35 02/14/25 05:35 Labs: Laboratory Results - last 24 hr 02/13/25 07:24: Absolute Neuts (auto) 0.0 L, Absolute Lymphs (auto) 0.10 L, Total Counted 10, Neutrophils % (Manual) 30 L, Lymphocytes % (Manual) 70 H, Differential Comment COMMENT, Diff Path Review May , Platelet Estimate MKD DEC, RBC Morphology NORM C+C 02/13/25 18:19: Vancomycin Trough 20.2 H 02/14/25 05:35: WBC 0.1 L*, RBC 2.69 L, Hgb 7.8 L, Hct 23.1 L, MCV 85.9, MCH 29.0, MCHC 33.8, RDW Std Deviation 45.7 H, RDW Coeff of Екатерина 14.8 H, Plt Count 17 L*, MPV 9.8, Immature Gran % (Auto) 0.000, Neut % (Auto) 8.3 L, Lymph % (Auto) 91.7 H, [place] % (Auto) 0.0, Eos % (Auto) 0.0, Baso % (Auto) 0.0, Absolute Neuts (auto) 0.0 L, Absolute Lymphs (auto) 0.11 L, Nucleated RBC % 0, Differential Comment SCANNED, Platelet Estimate MKD DEC, Sodium 139, Potassium 3.1 L, Chloride 99, Carbon Dioxide 29.7, Anion Gap 10, BUN 14, Creatinine 0.80, Estim Creat Clear Calc 116.42, Est GFR (MDRD) Non-Af 101, BUN/Creatinine Ratio 17.2, Glucose 117 H, Calcium 8.2, Phosphorus 3.2, Magnesium 2.0, Total Bilirubin 1.10, AST 17, ALT 27, Alkaline Phosphatase 100, Total Protein 5.0 L, Albumin 2.6 L, Globulin 2.4, Albumin/Globulin Ratio 1.1, TSH 2.510 Micro: Microbiology 02/13/25 15:57 Mucosa - Nasopharyngeal Respiratory Panel (PCR) - Final 02/08/25 13:26 Blood Culture (Wb) - Anticubital Left Blood Culture - Final No growth in 5 days. 02/08/25 13:26 Blood Culture (Wb) - Anticubital Left Bacteria Detection (PCR) - Final Staphylococcus aureus 02/08/25 13:26 Blood Culture (Wb) - Anticubital Left Blood Culture - Final Staphylococcus aureus 02/11/25 07:08 Blood Culture (Wb) - Anticubital Right Blood Culture - Preliminary No growth in 48 hours. 02/10/25 10:56 Blood Culture (Wb) - Venous Blood Culture - Preliminary No growth in 48 hours. 02/09/25 10:38 Blood Culture (Wb) - Anticubital Right Blood Culture - Preliminary No growth in 48 hours. 02/08/25 12:49 Urine, Clean Catch Urine Culture - Final Culture exhibits no growth. 02/08/25 17:38 Mucosa - Nasopharyngeal Coronavirus COVID-19 PCR - Final 02/08/25 17:38 Mucosa - Nasopharyngeal Respiratory Panel (PCR) - Final Radiography Diagnostic Testing: Radiology Impression Chest/Abdomen/Pelvis CT 02/13/25 14:41 IMPRESSION: 1. Bilateral multifocal nodular foci of airspace consolidation, most likely infectious/inflammatory. Consider atypical infectious etiologies such as fungal pneumonia. Small left pleural effusion. 2. Likely reactive increased number of nonenlarged mediastinal lymph nodes. 3. No acute or active inflammatory intra-abdominal pathology. 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, appears well General Appearance: cooperative HEENT normocephalic, head/scalp atraumatic and moist oral mucous membranes HEENT Narrative: Mallampati 2, no thrush Neck supple Neck Narrative: Trachea midline Resp normal respiratory effort, no retractions, no use of accessory muscles and clear to auscultation bilaterally Resp Narrative: No adventitious sounds noted Auscultation: Negative for rales, rhonchi or wheezes Cardio S1 normal heart sound, S2 normal heart sound, no murmurs, no rub, no gallops and no clicks Cardio Narrative: Mildly tachycardic with irregularly irregular rhythm GI normal to inspection, nondistended, normoactive bowel sounds, soft to palpation and non-tender Extremity no clubbing, cyanosis or edema Skin Skin Narrative: Left upper chest with some mild surrounding ecchymosis from area of Mediport removal, incisions are clean dry and intact with no drainage, tenderness, or itching Neuro oriented x3, moves all extremities and no focal motor deficits Speech: speech normal Psych affect normal Psych Narrative: Very pleasant, interacts appropriately Assessment & Plan Assessment/Plan (1) Sepsis: (2) SAMANTHA (acute kidney injury): (3) MSSA bacteremia: (4) Pancytopenia: PLAN: Plan Sepsis secondary to MSSA bacteremia secondary to Mediport infection - Mediport has been removed and area appears clean dry and intact - Antibiotics per ID with the addition of voriconazole given findings on CT of the chest and persistent fevers - Will likely need PICC line and antibiotics prior to discharge will await final recommendations from ID - Blood cultures remain negative - Patient is still neutropenic - Patient remains with fevers Persistent fevers - Patient with persistent fevers and Tmax overnight at 102.3 despite clearance of his blood cultures next-CT of the chest abdomen pelvis performed and CT of the chest does show atypical pneumonia concerning for fungal pneumonia - Add voriconazole with loading dose at 6 mg/kg then schedule dose at 4 mg/kg -Plan is for MIAN tomorrow--> discussed with Dr. 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 potassium given - Magnesium is within normal limits - Recheck in a.m. 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
--- NOTE | 2025-02-14 10:08 | PCM.PN.ID ---
Physical Exam Narrative Feeling fine. Did have fever overnight but asymptomatic. Some small amount sputum. Const alert and no apparent distress General Appearance: cooperative Resp normal air movement and clear to auscultation bilaterally Cardio regular rate and regular rhythm GI soft to palpation, non-tender and non-distended Skin no rashes or lesions noted ID ID: Route of nutrition/ use of supplements: [] Nutritional Intake: [] IV Site: [] Lay Catheter: [] Assessment & Plan Assessment/Plan (1) Neutropenic fever: PLAN: Neutropenic fever with MSSA bacteremia, suspected source is infected L chest port. Has been on chemo for AML. Elevated tbili, but RUQ and abd CT showed no infection. Bcx clear since 02/09/25. Port removed this AM 02/10/[address] Danielson. On vanc/cefepime. Cont acyclovir for prophylaxis. Ongoing fever, nodular infiltrate on CT. Resp pcr panel neg. Will order ebv, cmv, sputum cx, fungal sputum cx, aspergillus, histo. Will cont vanc, change cefepime to marlene. If fever continues, next step would be consider bronch and add ampho. Will follow (2) MSSA bacteremia: (3) SAMANTHA (acute kidney injury):
[2025-02-14] MEDS: NORMAL SALINE 0.9% IV ×2 (11:12→21:11)
[2025-02-14] MEDS: VORICONAZOLE IV ×2 (11:12→21:11)
[2025-02-14] MEDS: 0.9% Saline Lock 10 ML Syringe IV ×2 (11:13→21:02)
[2025-02-14] MEDS: 0.9% Normal Saline (250mL Bag) 250 ML 15 ML IV (11:13)
[2025-02-14] MEDS: Vancomycin HCl 1,750 MG in 0.9% Normal Saline (500mL Bag) 500 ML 250 MG IV ×2 (11:56→23:02)
[2025-02-14] MEDS: Potassium Chloride Oral Tablet 20 MEQ 40 MEQ PO (15:19)
[2025-02-14] MEDS: Meropenem 1 GM in 0.9% Normal Saline (100mL MB+) 100 ML IV ×2 (15:36→21:08)
--- NOTE | 2025-02-14 23:15 | EKG12_ITS ---
Test Reason : RHYTHM CHANGE Blood Pressure : */* mmHG Vent. Rate : 67 BPM Atrial Rate : 67 BPM P-R Int : 172 ms QRS Dur : 94 ms QT Int : 464 ms P-R-T Axes : 43 20 34 degrees QTcB Int : 490 ms Normal sinus rhythm Prolonged QT Abnormal ECG When compared with ECG of 10-Feb-2025 22:45, QT has lengthened Confirmed by CLEMENTINE AMADOR, NANCY ([id number]), society editor ROLANDA FIELDS ([id number]) on 02/16/2025 6:31:18 AM Referred By: Molly Dillon Confirmed By: NANCY SPRING MD
[2025-02-15] VITALS (21 sets, daily range): BP systolic 103–145; BP diastolic 55–113; PULSE 81–161; RESP 20–22; TEMP 36.7–39.6; O2SAT 84–96
[2025-02-15] MEDS: Meropenem 1 GM in 0.9% Normal Saline (100mL MB+) 100 ML IV ×3 (06:03→22:27)
[2025-02-15 06:18] LABS: Prothrombin Time (Protime)PT. 18.1 SECONDS (11.7-14.9)
[2025-02-15 06:19] LABS: Partial Thromboplast Time 33.0 Seconds (24.1-36.2)
[2025-02-15 06:32] LABS: Anion Gap 13 (5-15); BUN 16 mg/dL (4-19); BUN/Creat Ratio 17.7 RATIO (10-20); Calcium,Total 8.1 mg/dL (7.6-11.0); Carbon Dioxide 26.9 mmol/L (21.0-32.0); Chloride 101 mmol/L (98-108); Estimated Creatinine Clearance 102.34 ml/min (50-250); Glucose 112 mg/dL (70-99); Potassium 3.5 mmol/L (3.3-5.1)
[2025-02-15 07:04] LABS: Hematocrit 21.1 % (40-54); Hemoglobin 7.0 g/dL (13.0-16.5); Immature Granulocytes Count 0.000 X10^3/uL (0.0-0.0); Mean Corp Hgb Conc 33.2 g/dL (32-36); Mean Corpuscular Volume 86.5 fL (80-94); Mean Platelet Vol. 10.3 fl (6.2-12.0); NRBC Flagged by Analyzer 0 % (0-5); POSITIVE COUNT YES; POSITIVE DIFFERENTIAL YES; POSITIVE MORPHOLOGY YES; RBC Distribution Width CV 15.1 % (11.6-14.6); RBC Distribution Width SD 47.5 fl (35.1-43.9); Red Blood Count 2.44 M/mm3 (4.6-6.2)
[2025-02-15 07:11] LABS: Differential Indicated SCAN CRITERIA MET
[2025-02-15 07:12] LABS: Platelet Count 20 K/mm3 (150-450); White Blood Count 0.2 K/mm3 (4.4-11.0)
[2025-02-15 07:37] LABS: Differential Comment SCANNED
--- NOTE | 2025-02-15 07:51 | PCM.PN.BLA ---
Progress Note Patient seen and examined briefly during AM rounds. His port extraction site remains stable in appearance. There is no signs of postprocedural bleeding nor concern for infection. At this point, from a surgical perspective, patient would be cleared to shower and allow for water exposure to this site but then pat it dry thereafter. He is pending MIAN today with cardiology for the valve evaluation. No further surgical plans or recommendations but remain available for any concerns should they arise in the future.
--- NOTE | 2025-02-15 08:00 | ECHOTEE_ITS ---
Reason For Study Reason For Study: ENDOCARDITIS Medication MIAN probe 6VT-D (SN [id number]) passed without difficulty. No complications were noted. Performed a rapid injection of agitated mix of 9 cc saline and 1cc air to assess for atrial septal defect. Cetacaine Topical [place] given X3 orally. Fentanyl 50 mcg given slow IVP. Versed 3 mg given slow IVP. Left Ventricle Normal LV size. Left ventricular systolic function is normal. The left ventricular ejection fraction is 60 %. No regional wall motion abnormalities noted. Right Ventricle Normal RV size. Normal systolic function. Atria Bubble contrast study is negative for PFO/ASD. Normal left atrium. No thrombus is detected in the left atrial appendage. Normal right atrium. Mitral Valve Normal mitral valve. Tricuspid Valve Normal tricuspid valve. Mild tricuspid valve insufficiency. Aortic Valve Trisinus/trileaflet aortic valve. Pulmonic Valve Normal pulmonic valve. Vessels Normal aortic root. Patient Safety Gastric views not performed due to low platelet count. ECHO/Echo Transesophageal (MIAN) Interpretation Summary There is no evidence of a mass or vegetation. This does not rule out endocardit is. Normal LV size. Left ventricular systolic function is normal. The left ventricular ejection fraction is 60 %. Bubble contrast study is negative for PFO/ASD. Ordering Physician: Lea Scott Referring Physician: Molly Dillon Performed By: Danyelle Patterson RDCS and Student
[2025-02-15] MEDS: 0.9 % NaCl (Sterile) Posiflush 10 mL IV (08:02)
[2025-02-15] MEDS: VORICONAZOLE IV ×2 (11:12→22:46)
[2025-02-15] MEDS: NORMAL SALINE 0.9% IV ×2 (11:12→22:46)
[2025-02-15 11:48] LABS: Hemoglobin 7.2 g/dL (13.0-16.5)
--- NOTE | 2025-02-15 12:52 | NURSING ---
This RN called lab at this time to inquire about unresulted vancomycin trough, previously drawn at approx 1115. Per lab test still in progress.
--- NOTE | 2025-02-15 13:25 | PCM.PN.ID ---
Physical Exam Narrative Still with fever. MIAN this AM. No abd pain, no new rash. Some cough. Const alert and no apparent distress General Appearance: cooperative Resp normal air movement and clear to auscultation bilaterally Cardio regular rate and regular rhythm GI soft to palpation, non-tender and non-distended Skin no rashes or lesions noted ID ID: Route of nutrition/ use of supplements: [] Nutritional Intake: [] IV Site: [] Lay Catheter: [] Assessment & Plan Assessment/Plan (1) Neutropenic fever: PLAN: Neutropenic fever with MSSA bacteremia, suspected source is infected L chest port. Has been on chemo for AML. Elevated tbili, but RUQ and abd CT showed no infection. Bcx clear since 02/09/25. Port removed 02/10/[address] Danielson. Cont acyclovir for prophylaxis. Ongoing fever, nodular infiltrate on CT. Resp pcr panel neg. Pending ebv, cmv, sputum cx, fungal sputum cx, aspergillus, histo. Will cont vanc, marlene, vori. MIAN this AM neg for endocarditis. Will follow (2) MSSA bacteremia: (3) SAMANTHA (acute kidney injury):
[2025-02-15 13:33] LABS: Vancomycin, Trough Level 17.0 ug/mL (5.0-15.0)
[2025-02-15] MEDS: Potassium Chloride Oral Tablet 20 MEQ 40 MEQ PO (13:52)
--- NOTE | 2025-02-15 13:55 | PHA.PHARE_ITS ---
Consult Antibiotic Management Pharmacy has been consulted to manage selected antibiotic: Vancomycin Type of Intervention Type of Consult: Follow-up Prior Doses of Antibiotics Prior Doses of Antibiotics Received/Current Regimen: current dose is 1750mg IV q12h Labs Labs: Sodium 141 mmol/L (133-145) 02/15/25 05:20 Potassium 3.5 mmol/L (3.3-5.1) 02/15/25 05:20 Chloride 101 mmol/L (98-108) 02/15/25 05:20 Carbon Dioxide 26.9 mmol/L (21.0-32.0) 02/15/25 05:20 Anion Gap 13 (5-15) 02/15/25 05:20 BUN 16 mg/dL (4-19) 02/15/25 05:20 Creatinine 0.91 mg/dL (0.70-1.20) 02/15/25 05:20 Est GFR (MDRD) Non-Af 96 (>60) 02/15/25 05:20 BUN/Creatinine Ratio 17.7 RATIO (10-20) 02/15/25 05:20 Glucose 112 mg/dL (70-99) H 02/15/25 05:20 Vancomycin Trough 17.0 ug/mL (5.0-15.0) H 02/15/25 11:12 Microbiology Microbiology: Microbiology 02/10/25 10:56 Blood Culture (Wb) - Venous Blood Culture - Final No growth in 5 days. 02/14/25 12:23 Sputum, Expectorated/Coughed Gram Stain - Final 02/14/25 12:53 Urine, Clean Catch Legionella Antigen - Final 02/14/25 12:53 Urine, Clean Catch Streptococcus pneumoniae Antigen (M - Final 02/09/25 10:38 Blood Culture (Wb) - Anticubital Right Blood Culture - Final No growth in 5 days. 02/13/25 15:57 Mucosa - Nasopharyngeal Respiratory Panel (PCR) - Final 02/08/25 13:26 Blood Culture (Wb) - Anticubital Left Blood Culture - Final No growth in 5 days. 02/08/25 13:26 Blood Culture (Wb) - Anticubital Left Bacteria Detection (PCR) - Final Staphylococcus aureus 02/08/25 13:26 Blood Culture (Wb) - Anticubital Left Blood Culture - Final Staphylococcus aureus 02/11/25 07:08 Blood Culture (Wb) - Anticubital Right Blood Culture - Preliminary No growth in 48 hours. 02/08/25 12:49 Urine, Clean Catch Urine Culture - Final Culture exhibits no growth. 02/08/25 17:38 Mucosa - Nasopharyngeal Coronavirus COVID-19 PCR - Final 02/08/25 17:38 Mucosa - Nasopharyngeal Respiratory Panel (PCR) - Final Dosing Weight Weight used for dosin.8 kg Estimated Creatinine Clearance Estimated Creatinine Clearance: 102 ml/min Goal Trough Goal Trough: 15-20 mcg/mL Pharmacy Plan for Drug Dosing Pharmacy Plan for Drug Dosing: VANCOMYCIN LEVEL RECEIVED Current Vancomycin Dose: 1750MG IV Q12H Number of Doses Received: 3 Vancomycin Level: 17.0 MCG/ML Hours Since Last Dose: 12 Renal Function: SCr 0.91, CrCl 102 Renal Function Trend: SCr WAS 0.80 YESTERDAY AND 0.73 3 DAYS AGO Vancomycin Plan/Comments: KEEP SAME DOSE SINCE TROUGH IN GOAL RANGE. ADJUST TI GRACIELA TO 14:00 AND 02:00 SINCE TROUGH RESULT CAME BACK LATE. REPEAT TROUGH IN 2 DAYS PER PROTOCOL. Pending Level: 02/17/25 01:30 Pharmacy Service will continue to monitor and adjust dosing as required. Follow-Up Labs Follow-Up Labs: Trough: Vancomycin Date/Time Labs Ordered Labs to be done on [date and time ordered]: 02/17/25 01:30
[2025-02-15] MEDS: Vancomycin HCl 1,750 MG in 0.9% Normal Saline (500mL Bag) 500 ML 250 MG IV (15:08)
--- NOTE | 2025-02-15 15:21 | PN.HOSP_ITS ---
Reason for Visit Chief Complaint: Fever Subjective Subjective Patient with ongoing fevers overnight. Tmax 103.1. Patient states that he is now coughing up some significant sputum. Sample was sent. He is requiring some oxygen at 2 L now. Does complain of some shortness of breath exertion but states he otherwise feels pretty good. No specific complaints. Objective Data Objective Data Vital Signs: Vital Signs Temp Pulse Resp BP Pulse Ox O2 Del Method O2 Flow Rate 98.1 F 84 22 H 129/71 H 93 Nasal Cannula 2 02/15/25 13:44 02/15/25 13:44 02/15/25 13:44 02/15/25 13:44 02/15/25 13:44 02/15/25 13:44 02/15/25 13:44 Oxygen Flow Rate (L/min) 2 Oxygen Delivery Method Nasal Cannula Weight: 95.8 kg Body Mass Index (BMI) 28.6 Intake & Output: Intake and Output for Last 24 Hours 02/13/25 02/14/25 02/15/25 23:59 23:59 23:59 Intake Total 1840 / 2140 2281.75 / 2281.75 1330 / 1330 Output Total 2500 / 2500 1400 / 1400 Balance -660 / -360 881.75 / 881.75 1330 / 1330 Lab / Micro Data 02/15/25 11:12 02/15/25 05:20 Labs: Laboratory Results - last 24 hr 02/15/25 05:20: WBC Cancelled, Corrected WBC Cancelled, RBC Cancelled, Hgb Cancelled, Hct Cancelled, MCV Cancelled, MCH Cancelled, MCHC Cancelled, RDW Std Deviation Cancelled, RDW Coeff of Екатерина Cancelled, Plt Count Cancelled, MPV Cancelled, Immature Gran % (Auto) Cancelled, Neut % (Auto) Cancelled, Lymph % (Auto) Cancelled, Glenn % (Auto) Cancelled, Eos % (Auto) Cancelled, Baso % (Auto) Cancelled, Absolute Neuts (auto) Cancelled, Absolute Lymphs (auto) Cancelled, Total Counted Cancelled, Neutrophils % (Manual) Cancelled, Band Neutrophils % Cancelled, Lymphocytes % (Manual) Cancelled, Monocytes % (Manual) Cancelled, Eosinophils % (Manual) Cancelled, Basophils % (Manual) Cancelled, Metamyelocytes % Cancelled, Myelocytes % Cancelled, Promyelocytes % Cancelled, Blast Cells % Cancelled, Plasma Cell % (Manual) Cancelled, Other Cells % Cancelled, Nucleated RBC % Cancelled, Nucleated RBCs/100 WBC Cancelled, Differential Comment Cancelled, Diff Path Review Cancelled, Hypersegmented Neuts Cancelled, Atypical Lymphocytes Cancelled, Reactive Lymphocytes Cancelled, Smudge Cells Cancelled, Toxic Granulation Cancelled, Toxic Vacuolation Cancelled, Dohle Bodies Cancelled, Ada Rods Cancelled, Platelet Estimate Cancelled, Plt Morphology Comment Cancelled, RBC Morphology Cancelled 02/15/25 05:20: RBC Morphology Cancelled, Polychromasia Cancelled, Hypochromasia Cancelled, Basophilic Stippling Cancelled, Anisocytosis Cancelled, Microcytosis Cancelled, Macrocytosis Cancelled, Spherocytes Cancelled, Sickle Cells Cancelled, Target Cells Cancelled, Tear Drop Cells Cancelled, Ovalocytes Cancelled, Stomatocytes Cancelled, Lopez-[place] Bodies Cancelled, [place] Cells Cancelled, Bite Cells Cancelled, Crenated Cell Cancelled, Acanthocytes (Spur) Cancelled, Rouleaux Cancelled, Schistocytes Cancelled, PT 18.1 H, INR 1.5, APTT 33.0, Sodium 141, Potassium 3.5, Chloride 101, Carbon Dioxide 26.9, Anion Gap 13, BUN 16, Creatinine 0.91, Estim Creat Clear Calc 102.34, Est GFR (MDRD) Non- Af 96, BUN/Creatinine Ratio 17.7, Glucose 112 H, Calcium 8.1 02/15/25 06:54: WBC 0.2 L*, RBC 2.44 L, Hgb 7.0 L, Hct 21.1 L, MCV 86.5, MCH 28.7, MCHC 33.2, RDW Std Deviation 47.5 H, RDW Coeff of Екатерина 15.1 H, Plt Count 20 L*, MPV 10.3, Immature Gran % (Auto) 0.000, Neut % (Auto) 6.2 L, Lymph % (Auto) 93.8 H, Glenn % (Auto) 0.0, Eos % (Auto) 0.0, Baso % (Auto) 0.0, Absolute Neuts (auto) 0.0 L, Absolute Lymphs (auto) 0.15 L, Nucleated RBC % 0, Differential Comment SCANNED, Platelet Estimate MKD DEC 02/15/25 11:12: Hgb 7.2 L, Vancomycin Trough 17.0 H Micro: Microbiology 02/10/25 10:56 Blood Culture (Wb) - Venous Blood Culture - Final No growth in 5 days. 02/14/25 12:23 Sputum, Expectorated/Coughed Gram Stain - Final 02/14/25 12:53 Urine, Clean Catch Legionella Antigen - Final 02/14/25 12:53 Urine, Clean Catch Streptococcus pneumoniae Antigen (M - Final 02/09/25 10:38 Blood Culture (Wb) - Anticubital Right Blood Culture - Final No growth in 5 days. 02/13/25 15:57 Mucosa - Nasopharyngeal Respiratory Panel (PCR) - Final 02/08/25 13:26 Blood Culture (Wb) - Anticubital Left Blood Culture - Final No growth in 5 days. 02/08/25 13:26 Blood Culture (Wb) - Anticubital Left Bacteria Detection (PCR) - Final Staphylococcus aureus 02/08/25 13:26 Blood Culture (Wb) - Anticubital Left Blood Culture - Final Staphylococcus aureus 02/11/25 07:08 Blood Culture (Wb) - Anticubital Right Blood Culture - Preliminary No growth in 48 hours. 02/08/25 12:49 Urine, Clean Catch Urine Culture - Final Culture exhibits no growth. 02/08/25 17:38 Mucosa - Nasopharyngeal Coronavirus COVID-19 PCR - Final 02/08/25 17:38 Mucosa - Nasopharyngeal Respiratory Panel (PCR) - Final Radiography Diagnostic Testing: Radiology Impression Transesophageal Echocardiogram 02/15/25 08:00 Interpretation Summary There is no evidence of a mass or vegetation. This does not rule out endocarditis. Normal LV size. Left ventricular systolic function is normal. The left ventricular ejection fraction is 60 %. Bubble contrast study is negative for PFO/ASD. Ordering Physician: Lea Scott Referring Physician: Molly Dillon Performed By: Danyelle Patterson RDCS and Student Rhythm Strip Rhythm Strip: Sinus Rhythm Rate: 94 Ectopy: None Physical Exam Const alert, oriented x3, no apparent distress and well nourished; Negative for average body habitus or healthy appearing Constitutional Narrative: Overweight, upper middle-aged, white male, lying in bed, slightly short of breath with conversation and intermittent cough but does not appear toxic General Appearance: well kempt and well developed HEENT normocephalic, head/scalp atraumatic and moist oral mucous membranes HEENT Narrative: No thrush Eyes Eyes Narrative: Conjunctiva pallor bilaterally, no scleral icterus Neck supple Neck Narrative: Trachea midline Resp normal respiratory effort, no retractions, no use of accessory muscles and No clear to auscultation bilaterally Resp Narrative: Few scattered crackles noted Auscultation: crackles; Negative for rhonchi or wheezes Cardio regular rate, regular rhythm, S1 normal heart sound, S2 normal heart sound, no murmurs, no rub, no gallops and no clicks GI normal to inspection, nondistended, normoactive bowel sounds, soft to palpation and non-tender Extremity no clubbing, cyanosis or edema Extremity Narrative: 2+ pedal pulses Skin no jaundice, no petechiae and no mottling Skin Narrative: Ecchymosis surrounding left Mediport removal area but incision is clean dry and intact with no signs of infection Neuro oriented x3, moves all extremities and no focal motor deficits Speech: speech normal Psych affect normal Psych Narrative: Very pleasant, interacts appropriately Assessment & Plan Assessment/Plan (1) Sepsis: (2) SAMANTHA (acute kidney injury): (3) MSSA bacteremia: (4) Pancytopenia: PLAN: Plan Sepsis secondary to MSSA bacteremia secondary to Mediport infection - Mediport has been removed and area appears clean dry and intact - Antibiotics per ID with the addition of voriconazole given findings on CT of the chest and persistent fevers - Will likely need PICC line and antibiotics prior to discharge will await final recommendations from ID - Blood cultures remain negative - Patient is still neutropenic - Patient remains with fevers Persistent fevers - Patient with persistent fevers and Tmax overnight at 102.3 despite clearance of his blood cultures -CT of the chest abdomen pelvis performed and CT of the chest does show atypical pneumonia concerning for fungal pneumonia -Continue voriconazole -MIAN was unremarkable -Sputum culture does show 4+ gram-negative rods and 1+ gram-positive cocci but identification and finalized culture results are still pending -Per discussion with infectious disease patient will need bone Marbach CD with fungal/viral/AFB staining as well as flow and pathology -Would also like oncology consult - Sputum cultures pending - Strep pneumo and Legionella antigens are negative - Will check Dopplers Hypoxia - This is worsened since we broaden his antibiotics yesterday - Sputum cultures pending - Continue broad - Currently requiring 2 L nasal cannula - Continue oxygen and will obtain ambulatory pulse ox prior to discharge - Lasix 40 mg IV push x 1 dose 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 PAF -Patient with intermittent paroxysmal atrial fibrillation - Continue home diltiazem - Continue metoprolol - Patient not anticoagulated due to thrombocytopenia - TSH is within normal limits AML - Patient is currently on oral and IV chemo - Chemo is on hold -Since patient has ongoing fevers without of identified source as of yet discussed with ID and they would like oncology input - Continue home prophylactic medications Essential hypertension - Continue metoprolol - Continue diltiazem History of tobacco abuse - Remote - Encouraged ongoing cessation DVT prophylaxis - SCDs - Chemoprophylaxis is contraindicated due to thrombocytopenia CODE STATUS -DNR CCA with no intubation Charges/Coding Visit Charges Inpatient E&M: 65931 Subs Hosp L3
--- NOTE | 2025-02-15 15:31 | VDLE_ITS ---
Reason For Study Reason For Study: Shortness of breath RIGHT LEFT GSV is normal. GSV is normal. CFV is compressible, spontaneous, phasic, competent CFV is compressible, spontaneous, phasic, competent, and demonstrates normal augmentation. and demonstrates normal augmentation. FV is compressible, spontaneous, phasic, competent FV is compressible, spontaneous, phasic, competent and demonstrates normal augmentation. and demonstrates normal augmentation. POP V is compressible, spontaneous, phasic, competent POP V is compressible, spontaneous, phasic, competent and demonstrates normal augmentation. and demonstrates normal augmentation. T/P Trunk is compressible. T/P Trunk is compressible. PTV is compressible. PTV is compressible. RT PerV is compressible. LT PerV is compressible. Procedure This is a venous duplex using B-mode, color flow and spectral Doppler. Exam performed portable in patient room. A preliminary report was called and/or faxed to Dr. Scott and Alexa DUMONT. VL/Venous Duplex US - Inocente Extrem Interpretation Summary Deep veins of the bilateral lower extremities are patent and compressible segme ntally. There is no evidence of bilateral lower extremity deep vein thrombosis. The bilateral great saphenous veins appea r patent and compressible segmentally. Ordering Physician: Lea Scott Referring Physician: Jaquelin Dexter Performed By: Jeanne Jorge RVT
[2025-02-15] MEDS: 0.9% Saline Lock 10 ML Syringe IV (17:17)
--- NOTE | 2025-02-15 18:09 | CON.PCM.ON_ITS ---
Assessment & Plan Assessment/Plan (1) Sepsis: Status: Acute Code(s): A41.9 - Sepsis, unspecified organism Qualifiers: Sepsis type: sepsis due to unspecified organism Sepsis acute organ dysfunction status: unspecified Qualified Code(s): A41.9 - Sepsis, unspecified organism Plan: To continue broad-spectrum antibiotics (2) Pancytopenia: Status: Acute Code(s): D61.818 - Other pancytopenia Plan: Persistent cytopenia which may be due to bone marrow failure due to chemotherapy versus leukemia. Suggest trying G-CSF 480 mcg daily till ANC is 1000, obtaining bone marrow aspiration and biopsy to differentiate between treatment related bone marrow failure versus AML. HPI Consult Data Date of Service:: 02/15/25 PCP / Referring Provider: Dr. Jaquelin Dexter MD Attending: Dr. Lea Scott DO Chief Complaint Chief Complaint: Asked to see patient for neutropenic fever versus AML. History of Present Illness History of Present Illness: 59-year-old man with history of secondary AML, was on palliative chemotherapy with Venclexta and Vidaza. He was admitted to hospital with neutropenic fever and MSSA bacteremia, blood cultures are now clear, port was removed on 02/10/[address] Danielson. He has remained febrile with nodular infiltrates on CT, respiratory panel is negative. He is on broad-spectrum antibiotics. Advanced Directives Do you have a Healthcare Power of Enterprise Systems Administrator?: Yes FORMERLY [facility] Medical History Nocturia Urinary frequency Encounter for education Acute myeloid leukemia Wears glasses History of leukemia Former smoker History of Holter monitoring History of echocardiogram Cardiology follow-up encounter History of irregular heartbeat MDS (myelodysplastic syndrome) Secondary pneumonia RSV (acute bronchiolitis due to respiratory syncytial virus) Atrial fibrillation with RVR Acute bronchitis Acute upper respiratory infection Hematuria Health care maintenance Dilated aortic root BPH (benign prostatic hyperplasia) Splenomegaly CLL (chronic lymphocytic leukemia) Dyspnea Infected wound Nonhealing surgical wound Thrombocytopenia due to drugs Neutropenia Thrombocytopenia Leukopenia Non Hodgkin's lymphoma Pain in left lower leg Neutropenic fever Hypoxia Pancytopenia Contact with and (suspected) exposure to other viral communicable diseases Tobacco abuse counseling Hypertension Anemia Chronic kidney disease (CKD) Pancytopenia Obesity Thrombocytopenia Paroxysmal supraventricular tachycardia (11/27/19) Near syncope (09/2019) Home Medications ?Medication ?Instructions ?Recorded ?Last Taken ?Type acetaminophen 500 mg tablet 500 mg PO Q6H PRN pain 02/10/25 History (Tylenol Extra Strength) diltiazem HCl 180 mg 180 mg PO DAILY 90 days #90 caps 09/22/24 02/07/25 Rx capsule,extended release 24 hr acyclovir 800 mg tablet 800 mg PO BID 11/25/2402/08 History allopurinol 300 mg tablet 300 mg PO .COMPLEX #30 tabs 12/26/24 02/07/25 Rx ondansetron 8 mg disintegrating 8 mg PO Q8H PRN nausea and 12/26/24 02/07/25 Rx tablet vomiting #30 tabs venetoclax 100 mg tablet 200 mg PO QDAY 12/29/2401/18 History (Venclexta) metoprolol tartrate 50 mg tablet 25 mg (1/2 x 50 mg) P O BID 90 days 01/19/25 02/08/25 Rx #90 tabs Allergy/AdvReac Type Severity Reaction Status Date / Time ciprofloxacin (From Cipro) Allergy Intermediate Hives Verified 02/08/25 12:33 ibrutinib (From Imbruvica) Allergy dyspnea/diz Verified 02/08/25 12:33 zness rituximab Allergy Shortness Verified 02/08/25 12:33 of breath prochlorperazine (From AdvReac Unknown Dizziness Verified 02/08/25 12:33 Compazine) apixaban (From Eliquis) AdvReac Chest Verified 02/08/25 12:33 tightness Family History Father Diabetes Hypertension Mother Dementia Surgical History History of tonsillectomy History of bone marrow biopsy Social History household members: spouse Smoking Status: Former smoker Tobacco: How many years used: 15 how long ago did patient quit smoking: Many years ago alcohol intake: never substance use type: does not use caffeine: Yes Physical Exam Const alert, oriented x3 and no apparent distress HEENT normocephalic Eyes PERRL, EOMs intact bilaterally, conjunctivae normal and no scleral icterus Neck supple Lymph Lymphatic: no lymphadenopathy noted Resp clear to auscultation bilaterally Cardio regular rate, regular rhythm, S1 normal heart sound and S2 normal heart sound GI normal to inspection, nondistended, normoactive bowel sounds Extremity no clubbing, cyanosis or edema Skin no jaundice and no petechiae Neuro CN's II-XII intact bilaterally and moves all extremities Psych mental status grossly normal Vital Signs Temperature 99.1 F 02/15/25 17:12 Temperature Source Oral 02/15/25 17:12 Pulse Rate 89 02/15/25 17:12 Pulse Strength Normal (2+) 02/15/25 11:54 Respiratory Rate 20 H 02/15/25 17:12 Respiratory Effort Normal, Non-Labored 02/15/25 13:13 Respiratory Depth Normal 02/15/25 13:13 Respiratory Pattern Tachypnea 02/15/25 13:13 Blood Pressure 118/68 02/15/25 17:12 Blood Pressure Mean 84 02/15/25 17:12 Blood Pressure Source Monitor 02/15/25 17:12 Blood Pressure Position Semi-Fowlers 02/15/25 17:12 Blood Pressure Location Right Arm 02/15/25 17:12 Baseline BP 124/96 02/10/25 09:10 Pulse Ox 93 02/15/25 17:12 Oxygen Delivery Method Nasal Cannula 02/15/25 17:12 Oxygen Flow Rate (L/min) 2 02/15/25 17:12 Laboratory Results - last 24 hr 02/15/25 05:20: WBC Cancelled, Corrected WBC Cancelled, RBC Cancelled, Hgb Cancelled, Hct Cancelled, MCV Cancelled, MCH Cancelled, MCHC Cancelled, RDW Std Deviation Cancelled, RDW Coeff of Екатерина Cancelled, Plt Count Cancelled, MPV Cancelled, Immature Gran % (Auto) Cancelled, Neut % (Auto) Cancelled, Lymph % (Auto) Cancelled, [place] % (Auto) Cancelled, Eos % (Auto) Cancelled, Baso % (Auto) Cancelled, Absolute Neuts (auto) Cancelled, Absolute Lymphs (auto) Cancelled, Total Counted Cancelled, Neutrophils % (Manual) Cancelled, Band Neutrophils % Cancelled, Lymphocytes % (Manual) Cancelled, Monocytes % (Manual) Cancelled, Eosinophils % (Manual) Cancelled, Basophils % (Manual) Cancelled, Metamyelocytes % Cancelled, Myelocytes % Cancelled, Promyelocytes % Cancelled, Blast Cells % Cancelled, Plasma Cell % (Manual) Cancelled, Other Cells % Cancelled, Nucleated RBC % Cancelled, Nucleated RBCs/100 WBC Cancelled, Differential Comment Cancell ed, Diff Path Review Cancelled, Hypersegmented Neuts Cancelled, Atypical Lymphocytes Cancelled, Reactive Lymphocytes Cancelled, Smudge Cells Cancelled, Toxic Granulation Cancelled, Toxic Vacuolation Cancelled, Dohle Bodies Cancelled, Ada Rods Cancelled, Platelet Estimate Cancelled, Plt Morphology Comment Cancelled, RBC Morphology Cancelled 02/15/25 05:20: RBC Morphology Cancelled, Polychromasia Cancelled, Hypochromasia Cancelled, Basophilic Stippling Cancelled, Anisocytosis Cancelled, Microcytosis Cancelled, Macrocytosis Cancelled, Spherocytes Cancelled, Sickle Cells Ca ncelled, Target Cells Cancelled, Tear Drop Cells Cancelled, Ovalocytes Cancelled, Stomatocytes Cancelled, Lopez-[place] Bodies Cancelled, [place] Cells Cancelled, Bite Cells Cancelled, Crenated Cell Cancelled, Acanthocytes (Spur) Cancelled, Rouleaux Cancelled, Schistocytes Cancelled, PT 18.1 H, INR 1.5, APTT 33.0, Sodium 141, Potassium 3.5, Chloride 101, Carbon Dioxide 26.9, Anion Gap 13, BUN 16, Creatinine 0.91, Estim Creat Clear Calc 102.34, Est GFR (MDRD) Non- Af 96, BUN/Creatinine Ratio 17.7, Glucose 112 H, Calcium 8.1 02/15/25 06:54: WBC 0.2 L*, RBC 2.44 L, Hgb 7.0 L, Hct 21.1 L, MCV 86.5, MCH 28.7, MCHC 33.2, RDW Std Deviation 47.5 H, RDW Coeff of Екатерина 15.1 H, Plt Count 20 L*, MPV 10.3, Immature Gran % (Auto) 0.000, Neut % (Auto) 6.2 L, Lymph % (Auto) 93.8 H, [place] % (Auto) 0.0, Eos % (Auto) 0.0, Baso % (Auto) 0.0, Absolute Neuts (auto) 0.0 L, Absolute Lymphs (auto) 0.15 L, Nucleated RBC % 0, Differential Comment SCANNED, Platelet Estimate MKD DEC 02/15/25 11:12: Hgb 7.2 L, Vancomycin Trough 17.0 H Microbiology 02/10/25 10:56 Blood Culture (Wb) - Venous Blood Culture - Final No growth in 5 days. Diagnostic Data Abdomen/Pelvis CT 02/08/25 13:27 IMPRESSION: 1. No acute abdominopelvic finding. 2. Mild splenomegaly, improved since prior examination. Reading Location: [id number] Gallbladder Ultrasound 02/08/25 16:51 IMPRESSION: No acute findings in the right upper quadrant. Reading Location: [id number] Echocardiogram 02/09/25 09:13 Interpretation Summary The estimated ejection fraction is 60 %. The left atrium is mildly enlarged. Ordering Physician: Brice Montesinos Referring Physician: Molly Dillon Performed By: Zheng Adrian RCS Chest X-Ray 02/12/25 17:40 IMPRESSION: New parenchymal opacities in the left lung. Possible pneumonia. Neoplasm seems unlikely given recent study from 01/17/2025 Reading Location[facility] Chest/Abdomen/Pelvis CT 02/13/25 14:41 IMPRESSION: 1. Bilateral multifocal nodular foci of airspace consolidation, most likely infectious/inflammatory. Consider atypical infectious etiologies such as fungal pneumonia. Small left pleural effusion. 2. Likely reactive increased number of nonenlarged mediastinal lymph nodes. 3. No acute or active inflammatory intra-abdominal pathology. Reading Location: [facility] Transesophageal Echocardiogram 02/15/25 08:00 Interpretation Summary There is no evidence of a mass or vegetation. This does not rule out endocard itis. Normal LV size. Left ventricular systolic function is normal. The left ventricular ejection fraction is 60 %. Bubble contrast study is negative for PFO/ASD. Ordering Physician: Lea Scott Referring Physician: Molly Dillon Performed By: Danyelle Patterson RDCS and Student
[2025-02-16] VITALS (12 sets, daily range): BP systolic 91–128; BP diastolic 56–100; PULSE 66–87; RESP 16–18; TEMP 36.4–39.4; O2SAT 93–95
[2025-02-16] MEDS: Vancomycin HCl 1,750 MG in 0.9% Normal Saline (500mL Bag) 500 ML 250 MG IV ×2 (02:31→15:34)
[2025-02-16] MEDS: 0.9% Normal Saline (250mL Bag) 250 ML 15 ML IV ×2 (02:52→23:13)
[2025-02-16] MEDS: Meropenem 1 GM in 0.9% Normal Saline (100mL MB+) 100 ML IV ×3 (05:51→23:11)
[2025-02-16 06:39] LABS: Hematocrit 22.5 % (40-54); Hemoglobin 7.3 g/dL (13.0-16.5); Immature Granulocytes Count 0.010 X10^3/uL (0.0-0.0); Mean Corp Hgb Conc 32.4 g/dL (32-36); Mean Corpuscular Volume 88.9 fL (80-94); Mean Platelet Vol. 10.6 fl (6.2-12.0); NRBC Flagged by Analyzer 12.5 % (0-5); POSITIVE COUNT YES; POSITIVE DIFFERENTIAL YES; POSITIVE MORPHOLOGY YES; RBC Distribution Width CV 15.4 % (11.6-14.6); RBC Distribution Width SD 49.2 fl (35.1-43.9); Red Blood Count 2.53 M/mm3 (4.6-6.2)
[2025-02-16 07:00] LABS: AST(SGOT) 33 U/L (<=37); Alanine Aminotransfer ALT/SGPT 41 U/L (<=46); Albumin, Serum 2.7 g/dL (3.4-4.8); Alkaline Phosphatase 119 U/L (40-129); Anion Gap 11 (5-15); BUN 17 mg/dL (4-19); BUN/Creat Ratio 16.9 RATIO (10-20); Calcium,Total 8.0 mg/dL (7.6-11.0); Carbon Dioxide 30.8 mmol/L (21.0-32.0); Chloride 102 mmol/L (98-108); Estimated Creatinine Clearance 91.31 ml/min (50-250); Globulin 2.6 g/dL (2.2-4.2); Glucose 113 mg/dL (70-99); Magnesium 2.0 mg/dL (1.5-2.2); Potassium 2.8 mmol/L (3.3-5.1)
[2025-02-16 07:27] LABS: Differential Indicated SCAN CRITERIA MET; Platelet Count 39 K/mm3 (150-450); White Blood Count 0.2 K/mm3 (4.4-11.0)
[2025-02-16 09:51] LABS: Magnesium 2.0 mg/dL (1.5-2.2)
--- NOTE | 2025-02-16 10:07 | PCM.PN.ID ---
Physical Exam Narrative Feeling ok, sinus and cough feel better. No fever. No new symptoms. Const alert and no apparent distress General Appearance: cooperative Resp normal air movement and clear to auscultation bilaterally Cardio regular rate and regular rhythm GI soft to palpation, non-tender and non-distended Skin no rashes or lesions noted ID ID: Route of nutrition/ use of supplements: [] Nutritional Intake: [] IV Site: [] Lay Catheter: [] Assessment & Plan Assessment/Plan (1) Neutropenic fever: PLAN: Neutropenic fever with MSSA bacteremia, suspected source is infected L chest port. Has been on chemo for AML. Elevated tbili, but RUQ and abd CT showed no infection. Bcx clear since 02/09/25. Port removed 02/10/[address] Danielson. Cont acyclovir for prophylaxis. Ongoing fever, nodular infiltrate on CT. Resp pcr panel neg. Pending ebv, cmv, sputum cx, fungal sputum cx, aspergillus, histo. Will cont vanc, marlene, vori. MIAN neg for endocarditis. Bone marrow bx planned, would send for AFB/fungal/viral staining. Had some sinus congestion, will check CT. Repeating cxs this AM. Will follow (2) MSSA bacteremia: (3) SAMANTHA (acute kidney injury):
--- NOTE | 2025-02-16 10:08 | CT_ITS ---
PROCEDURE: SINUS/FACIAL BONE WITH CONTRAS 02/16/2025 REASON FOR EXAM: SINUSITIS TECHNIQUE: SINUS/FACIAL BONE WITH CONTRAS Coronal and Sagittal reconstruction series were provided. CONTRAST: Isovue-300 VOLUME: 90 mL One or more dose reduction techniques were used (e.g., Automated exposure control, adjustment of the mA and/or kV according to patient size, use of iterative reconstruction technique). RADIATION DOSE SUMMARY: CTDlvol: 25.01 mGy DLP: 847.17 mGycm COMPARISON: None FINDINGS: Frontal: Clear Ethmoid: Mild opacification of the ethmoid sinuses bilaterally worse on the left side. Sphenoid: Mucosal thickening along the lateral aspect of the right sphenoid sinus as well as the left sphenoid sinus. Maxillary: Partial opacification of the left maxillary sinus. Mucosal thickening of the right maxillary sinus. Turbinates: Hypertrophy of the left middle and inferior turbinates. Nasal Septum: Midline. Mastoids/Middle Ears: Unremarkable CT/Sinus/Facial Bone WITH Contras IMPRESSION: Sinusitis as described. Reading Location: [id number]
--- NOTE | 2025-02-16 11:15 | CASEMGMT ---
Tertiary facilites in-network with patient's insurance: Mckenzie Edmond, ENEDELIA Estes, Sagar Johns, POLLY, Danay, , [facility]
[2025-02-16] MEDS: Potassium Chloride Oral Tablet 20 MEQ 40 MEQ PO ×2 (12:01→21:56)
[2025-02-16] MEDS: NORMAL SALINE 0.9% IV ×2 (12:19→21:47)
[2025-02-16] MEDS: VORICONAZOLE IV ×2 (12:19→21:47)
[2025-02-16] MEDS: 0.9% Saline Lock 10 ML Syringe IV ×3 (12:21→18:13)
--- NOTE | 2025-02-16 17:10 | PN.HOSP_ITS ---
Reason for Visit Chief Complaint: Fever Subjective Subjective Tmax in last 24 hours is 103.3. Still having intermittent fevers. Patient states he overall feels fine but requiring oxygen. He is on very broad-spectrum antibiotics. ID and oncology are involved. I did discuss possible transfer to [facility] and he is not very excited about this but I did discuss with him if we cannot figure this out we may need to transfer him there. Objective Data Objective Data Vital Signs: Vital Signs Temp Pulse Resp BP Pulse Ox O2 Del Method O2 Flow Rate 99 F 69 18 113/100 H 94 Nasal Cannula 4 02/16/25 16:59 02/16/25 15:45 02/16/25 15:45 02/16/25 15:45 02/16/25 15:45 02/16/25 15:45 02/16/25 15:45 FiO2 94 02/16/25 15:45 Oxygen Flow Rate (L/min) 4 Oxygen Delivery Method Nasal Cannula Weight: 95.8 kg Body Mass Index (BMI) 28.6 Intake & Output: Intake and Output for Last 24 Hours 02/14/25 02/15/25 02/16/25 23:59 23:59 23:59 Intake Total 2281.75 / 2281.75 1965 / 2453 2806.75 / 2806.75 Output Total 1400 / 1400 500 / 500 375 / 375 Balance 881.75 / 881.75 1465 / 1953 2431.75 / 2431.75 Lab / Micro Data 02/16/25 05:28 02/16/25 05:28 Labs: Laboratory Results - last 24 hr 02/16/25 05:28: WBC 0.2 L*, RBC 2.53 L, Hgb 7.3 L, Hct 22.5 L, MCV 88.9, MCH 28.9, MCHC 32.4, RDW Std Deviation 49.2 H, RDW Coeff of Екатерина 15.4 H, Plt Count 39 L*, MPV 10.6, Immature Gran % (Auto) 6.300 H, Neut % (Auto) 12.4 L, Lymph % (Auto) 81.3 H, [place] % (Auto) 0.0, Eos % (Auto) 0.0, Baso % (Auto) 0.0, Absolute Neuts (auto) 0.0 L, Absolute Lymphs (auto) 0.13 L, Nucleated RBC % 12.5 H, Platelet Estimate MKD DEC, Ovalocytes 1+, Sodium 144, Potassium 2.8 L, Chloride 102, Carbon Dioxide 30.8, Anion Gap 11, BUN 17, Creatinine 1.02, Estim Creat Clear Calc 91.31, Est GFR (MDRD) Non-Af 84, BUN/Creatinine Ratio 16.9, Glucose 113 H, Calcium 8.0, Phosphorus 2.8, Magnesium 2.0, Total Bilirubin 0.77, AST 33, ALT 41, Alkaline Phosphatase 119, Total Protein 5.3 L, Albumin 2.7 L, Globulin 2.6, Albumin/Globulin Ratio 1.0 02/16/25 09:10: Magnesium 2.0 Micro: Microbiology 02/11/25 07:08 Blood Culture (Wb) - Anticubital Right Blood Culture - Final No growth in 5 days. 02/14/25 12:23 Sputum, Expectorated/Coughed Gram Stain - Final 02/14/25 12:23 Sputum, Expectorated/Coughed Respiratory Culture - Final 02/10/25 10:56 Blood Culture (Wb) - Venous Blood Culture - Final No growth in 5 days. 02/14/25 12:53 Urine, Clean Catch Legionella Antigen - Final 02/14/25 12:53 Urine, Clean Catch Streptococcus pneumoniae Antigen (M - Final 02/09/25 10:38 Blood Culture (Wb) - Anticubital Right Blood Culture - Final No growth in 5 days. 02/13/25 15:57 Mucosa - Nasopharyngeal Respiratory Panel (PCR) - Final 02/08/25 13:26 Blood Culture (Wb) - Anticubital Left Blood Culture - Final No growth in 5 days. 02/08/25 13:26 Blood Culture (Wb) - Anticubital Left Bacteria Detection (PCR) - Final Staphylococcus aureus 02/08/25 13:26 Blood Culture (Wb) - Anticubital Left Blood Culture - Final Staphylococcus aureus 02/08/25 12:49 Urine, Clean Catch Urine Culture - Final Culture exhibits no growth. 02/08/25 17:38 Mucosa - Nasopharyngeal Coronavirus COVID-19 PCR - Final 02/08/25 17:38 Mucosa - Nasopharyngeal Respiratory Panel (PCR) - Final Radiography Diagnostic Testing: Radiology Impression Facial/Sinus 02/16/25 10:08 IMPRESSION: Sinusitis as described. 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, patient appears comfortable but looks ill HEENT normocephalic, head/scalp atraumatic and moist oral mucous membranes HEENT Narrative: no thrush, mallampati 3 Neck Neck Narrative: Trachea midline Resp no retractions, no use of accessory muscles and No clear to auscultation bilaterally Resp Narrative: Mild tachypnea, scattered crackles Auscultation: crackles; Negative for rales, rhonchi or wheezes Cardio regular rate, regular rhythm, S1 normal heart sound, S2 normal heart sound, no murmurs, no rub, no gallops and no clicks Cardio Narrative: Back in sinus rhythm GI normal to inspection, nondistended, normoactive bowel sounds, soft to palpation and non-tender Extremity Extremity Narrative: 2+ pedal and radial pulses, no cyanosis or clubbing, trace edema Skin no petechiae and no mottling Skin Narrative: Ecchymosis surrounding left Mediport removal area but incision is clean dry and intact with no signs of infection Neuro moves all extremities and no focal motor deficits Sensorium / Orientation: awake and alert Speech: speech normal Psych affect normal Psych Narrative: Very pleasant, interacts appropriately Assessment & Plan Assessment/Plan (1) Sepsis: QUALIFIERS: Sepsis type: sepsis due to unspecified organism S epsis acute organ dysfunction status: unspecified Qualified Code(s): A41.9 - Sepsis, unspecified organism (2) SAMANTHA (acute kidney injury): (3) MSSA bacteremia: (4) Pancytopenia: PLAN: Plan Sepsis secondary to MSSA bacteremia secondary to Mediport infection - Mediport has been removed and area appears clean dry and intact -Continue antibiotics that are extremely broad-spectrum with meropenem, vancomycin, and voriconazole -Remains on prophylactic acyclovir - Blood cultures remain negative--> repeat cultures are again pending given persistent fevers - Patient is still neutropenic Consider Granix after bone marrow biopsy- - Patient remains with fevers Persistent fevers - Patient with persistent fevers and Tmax overnight at 103.3 -Onc consultation requested and bone marrow aspiration biopsy recommended however not ordered so I will need to discuss tomorrow with radiology to get this performed with cultures per ID's desires -Concerned that it could be related to -CT of the chest abdomen pelvis performed and CT of the chest does show atypical pneumonia concerning for fungal pneumonia -Continue voriconazole -MIAN was unremarkable - Sputum cultures shows normal oral tramaine - Strep pneumo and Legionella antigens are negative - Wet read on Dopplers was unremarkable - If still continues to have fevers through the night will need to discuss transfer to [facility]--> patient has been reluctant to transfer to [facility] previously and did not seem all that interested when I discussed it with him today - If he does not want to be transferred and he continues to clinically decline may need to consider hospice as there is a chance that this is progressive and of his AML Hypoxia - Worsening - Now requiring 4 L nasal cannula - Sputum cultures shows normal oral tramaine - Continue broad spectrum antibiotics - Check chest x-ray - Continue oxygen and will obtain ambulatory pulse ox prior to discharge - Repeat Lasix - May need to consider bronchoscopy Hypokalemia - Potassium 2.8 likely related to diuresis - Will give twice daily dosing x 2 doses and recheck in a.m. - Magnesium is normal at 2.0 - Recheck in a.m. 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 - Abnormal but stable in all cell lines - Do not transfuse platelets unless under 10,000--> remains relatively stable - Hemoglobin is relatively stable we will continue to monitor - Platelet count is low but stable and greater than 10,000 without any signs of spontaneous bleeding - Continue to monitor counts daily - Once bone marrow done will give Granix per oncology's recommendations - Bone marrow biopsy planned--will order tomorrow morning once clarify with lab PAF -Patient with intermittent paroxysmal atrial fibrillation--currently normal sinus rhythm> - Continue home diltiazem - Continue metoprolol - Patient not anticoagulated due to thrombocytopenia AML - Patient is currently on oral and IV chemo - Chemo is on hold - Continue home prophylactic medications - Onc following Essential hypertension - Continue metoprolol - Continue diltiazem History of tobacco abuse - Remote - Encouraged ongoing cessation DVT prophylaxis - SCDs - Chemoprophylaxis is contraindicated due to thrombocytopenia CODE STATUS -DNR CCA with no intubation Charges/Coding Visit Charges Inpatient E&M: 28681 Subs Hosp L2
--- NOTE | 2025-02-16 17:15 | RAD_ITS ---
PROCEDURE: CHEST 1 VIEW (PORTABLE) 02/16/2025 REASON FOR EXAM: HYPOXIA TECHNIQUE: Frontal view of the chest. COMPARISON: CT chest 02/13/2025 FINDINGS: Lungs/Pleura: Similar appearance of multifocal patchy/nodular airspace consolidation more pronounced on the left, better demonstrated on recent CT chest. No sizable pleural effusion on this plain radiograph. No pneumothorax. Mild interstitial reticular/emphysematous lung changes. Heart/Mediastinum: Mild cardiomegaly. Aortic arch calcification. Bones/Soft tissues: Mild degenerative changes of the thoracic spine. RAD/Chest 1 View (Portable) IMPRESSION: Multifocal patchy/nodular airspace consolidation, similar to recent CT and may represent multifocal pneumonia. Mild interstitial/reticular emphysematous lung changes. Reading Location: [id number]
[2025-02-17] VITALS (27 sets, daily range): BP systolic 90–128; BP diastolic 53–79; PULSE 62–143; RESP 14–20; TEMP 36.9–38; O2SAT 92–100
[2025-02-17 02:01] LABS: Hematocrit 21.3 % (40-54); Hemoglobin 6.9 g/dL (13.0-16.5); Immature Granulocytes Count 0.000 X10^3/uL (0.0-0.0); Mean Corp Hgb Conc 32.4 g/dL (32-36); Mean Corpuscular Volume 88.0 fL (80-94); Mean Platelet Vol. 10.0 fl (6.2-12.0); NRBC Flagged by Analyzer 0 % (0-5); POSITIVE COUNT YES; POSITIVE DIFFERENTIAL YES; POSITIVE MORPHOLOGY YES; Platelet Count 51 K/mm3 (150-450); RBC Distribution Width CV 15.3 % (11.6-14.6); RBC Distribution Width SD 48.8 fl (35.1-43.9); Red Blood Count 2.42 M/mm3 (4.6-6.2)
[2025-02-17 02:08] LABS: Differential Indicated SCAN CRITERIA MET
[2025-02-17 02:11] LABS: White Blood Count 0.1 K/mm3 (4.4-11.0)
[2025-02-17 02:21] LABS: Vancomycin, Trough Level 25.4 ug/mL (5.0-15.0)
[2025-02-17 02:22] LABS: AST(SGOT) 26 U/L (<=37); Alanine Aminotransfer ALT/SGPT 34 U/L (<=46); Albumin, Serum 2.5 g/dL (3.4-4.8); Alkaline Phosphatase 119 U/L (40-129); Anion Gap 10 (5-15); BUN 16 mg/dL (4-19); BUN/Creat Ratio 16.7 RATIO (10-20); Calcium,Total 7.9 mg/dL (7.6-11.0); Carbon Dioxide 31.8 mmol/L (21.0-32.0); Chloride 101 mmol/L (98-108); Estimated Creatinine Clearance 99.08 ml/min (50-250); Globulin 2.4 g/dL (2.2-4.2); Glucose 109 mg/dL (70-99); Magnesium 1.9 mg/dL (1.5-2.2); Potassium 3.2 mmol/L (3.3-5.1)
--- NOTE | 2025-02-17 02:30 | PCM.RX.CS ---
Consult Antibiotic Management Pharmacy has been consulted to manage selected antibiotic: Vancomycin Type of Intervention Type of Consult: Follow-up Labs Labs: Sodium 142 mmol/L (133-145) 02/17/25 01:43 Potassium 3.2 mmol/L (3.3-5.1) L 02/17/25 01:43 Chloride 101 mmol/L (98-108) 02/17/25 01:43 Carbon Dioxide 31.8 mmol/L (21.0-32.0) 02/17/25 01:43 Anion Gap 10 (5-15) 02/17/25 01:43 BUN 16 mg/dL (4-19) 02/17/25 01:43 Creatinine 0.94 mg/dL (0.70-1.20) 02/17/25 01:43 Est GFR (MDRD) Non-Af 92 (>60) 02/17/25 01:43 BUN/Creatinine Ratio 16.7 RATIO (10-20) 02/17/25 01:43 Glucose 109 mg/dL (70-99) H 02/17/25 01:43 Vancomycin Trough 25.4 ug/mL (5.0-15.0) H 02/17/25 01:43 Microbiology Microbiology: Microbiology 02/11/25 07:08 Blood Culture (Wb) - Anticubital Right Blood Culture - Final No growth in 5 days. 02/14/25 12:23 Sputum, Expectorated/Coughed Gram Stain - Final 02/14/25 12:23 Sputum, Expectorated/Coughed Respiratory Culture - Final 02/10/25 10:56 Blood Culture (Wb) - Venous Blood Culture - Final No growth in 5 days. 02/14/25 12:53 Urine, Clean Catch Legionella Antigen - Final 02/14/25 12:53 Urine, Clean Catch Streptococcus pneumoniae Antigen (M - Final 02/09/25 10:38 Blood Culture (Wb) - Anticubital Right Blood Culture - Final No growth in 5 days. 02/13/25 15:57 Mucosa - Nasopharyngeal Respiratory Panel (PCR) - Final 02/08/25 13:26 Blood Culture (Wb) - Anticubital Left Blood Culture - Final No growth in 5 days. 02/08/25 13:26 Blood Culture (Wb) - Anticubital Left Bacteria Detection (PCR) - Final Staphylococcus aureus 02/08/25 13:26 Blood Culture (Wb) - Anticubital Left Blood Culture - Final Staphylococcus aureus 02/08/25 12:49 Urine, Clean Catch Urine Culture - Final Culture exhibits no growth. 02/08/25 17:38 Mucosa - Nasopharyngeal Coronavirus COVID-19 PCR - Final 02/08/25 17:38 Mucosa - Nasopharyngeal Respiratory Panel (PCR) - Final Dosing Weight Weight used for dosin kg Estimated Creatinine Clearance Estimated Creatinine Clearance: 99 Goal Trough Goal Trough: 15-20 mcg/mL Pharmacy Plan for Drug Dosing Pharmacy Plan for Drug Dosing: Vancomycin trough level of 25.4, drawn 10.2hrs post-dose, was above the target range of 15-20. Will suspend current dosing and will draw a random vanco level in 12 hours to determine further orders. Pharmacy Service will continue to monitor and adjust dosing as required. Follow-Up Labs Follow-Up Labs: Trough: Vancomycin (random) Date/Time Labs Ordered Labs to be done on [date and time ordered]: 02/17/25 @1330 (random)
[2025-02-17 04:00] LABS: Differential Comment SCANNED
[2025-02-17] MEDS: Meropenem 1 GM in 0.9% Normal Saline (100mL MB+) 100 ML IV ×3 (06:29→20:13)
[2025-02-17] MEDS: 0.9% Saline Lock 10 ML Syringe IV ×3 (06:29→20:13)
--- NOTE | 2025-02-17 08:12 | PCM.PN.HOSP ---
Reason for Visit Chief Complaint: Fever Subjective Subjective Tmax overnight was 102.9 today his Tmax is 100.4. He was amenable to bone marrow biopsy here but is fairly adamant he does not want transferred to [facility]. Order placed for bone marrow. No specific complaints at this time. Still remains on 4 L oxygen. Objective Data Objective Data Vital Signs: Vital Signs Temp Pulse Resp BP Pulse Ox O2 Del Method O2 Flow Rate 98.9 F 85 20 H 128/66 H 94 Room Air 4 02/17/25 03:10 02/17/25 03:10 02/17/25 03:10 02/17/25 03:10 02/17/25 03:10 02/17/25 03:10 02/16/25 23:30 FiO2 94 02/16/25 15:45 Oxygen Flow Rate (L/min) 4 Oxygen Delivery Method Room Air Weight: 95.8 kg Body Mass Index (BMI) 28.6 Intake & Output: Intake and Output for Last 24 Hours 02/15/25 02/16/25 02/17/25 23:59 23:59 23:59 Intake Total 1965 / 2453 3574.25 / 3574.25 426.05 / 426.05 Output Total 500 / 500 1075 / 1075 Balance 1465 / 1953 2499.25 / 2499.25 426.05 / 426.05 Lab / Micro Data 02/17/25 01:43 02/17/25 01:43 Labs: Laboratory Results - last 24 hr 02/14/25 09:44: A.fumigatus Allerg IgE <0.10 02/16/25 05:28: WBC 0.2 L*, Platelet Estimate MKD DEC, Ovalocytes 1+ 02/16/25 09:10: Magnesium 2.0 02/17/25 01:43: WBC 0.1 L*, RBC 2.42 L, Hgb 6.9 L, Hct 21.3 L, MCV 88.0, MCH 28.5, MCHC 32.4, RDW Std Deviation 48.8 H, RDW Coeff of Екатерина 15.3 H, Plt Count 51 L, MPV 10.0, Immature Gran % (Auto) 0.000, Neut % (Auto) 21.4 L, Lymph % (Auto) 78.6 H, [place] % (Auto) 0.0, Eos % (Auto) 0.0, Baso % (Auto) 0.0, Absolute Neuts (auto) 0.0 L, Absolute Lymphs (auto) 0.11 L, Nucleated RBC % 0, Differential Comment SCANNED, Platelet Estimate MKD DEC, Sodium 142, Potassium 3.2 L, Chloride 101, Carbon Dioxide 31.8, Anion Gap 10, BUN 16, Creatinine 0.94, Estim Creat Clear Calc 99.08, Est GFR (MDRD) Non-Af 92, BUN/Creatinine Ratio 16.7, Glucose 109 H, Calcium 7.9, Phosphorus 2.8, Magnesium 1.9, Total Bilirubin 0.69, AST 26, ALT 34, Alkaline Phosphatase 119, Total Protein 4.9 L, Albumin 2.5 L, Globulin 2.4, Albumin/Globulin Ratio 1.1, Vancomycin Trough 25.4 H 02/17/25 04:29: Antibody Screen NEGATIVE, Crossmatch See Detail Micro: Microbiology 02/11/25 07:08 Blood Culture (Wb) - Anticubital Right Blood Culture - Final No growth in 5 days. 02/14/25 12:23 Sputum, Expectorated/Coughed Gram Stain - Final 02/14/25 12:23 Sputum, Expectorated/Coughed Respiratory Culture - Final 02/10/25 10:56 Blood Culture (Wb) - Venous Blood Culture - Final No growth in 5 days. 02/14/25 12:53 Urine, Clean Catch Legionella Antigen - Final 02/14/25 12:53 Urine, Clean Catch Streptococcus pneumoniae Antigen (M - Final 02/09/25 10:38 Blood Culture (Wb) - Anticubital Right Blood Culture - Final No growth in 5 days. 02/13/25 15:57 Mucosa - Nasopharyngeal Respiratory Panel (PCR) - Final 02/08/25 13:26 Blood Culture (Wb) - Anticubital Left Blood Culture - Final No growth in 5 days. 02/08/25 13:26 Blood Culture (Wb) - Anticubital Left Bacteria Detection (PCR) - Final Staphylococcus aureus 02/08/25 13:26 Blood Culture (Wb) - Anticubital Left Blood Culture - Final Staphylococcus aureus 02/08/25 12:49 Urine, Clean Catch Urine Culture - Final Culture exhibits no growth. 02/08/25 17:38 Mucosa - Nasopharyngeal Coronavirus COVID-19 PCR - Final 02/08/25 17:38 Mucosa - Nasopharyngeal Respiratory Panel (PCR) - Final Radiography Diagnostic Testing: Radiology Impression Facial/Sinus 02/16/25 10:08 IMPRESSION: Sinusitis as described. Reading Location: [facility] Chest X-Ray 02/16/25 17:15 IMPRESSION: Multifocal patchy/nodular airspace consolidation, similar to recent CT and may represent multifocal pneumonia. Mild interstitial/reticular emphysematous lung changes. 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 HEENT normocephalic, head/scalp atraumatic and moist oral mucous membranes HEENT Narrative: Mallampati 2-3, no thrush Neck Neck Narrative: Trachea midline Resp normal respiratory effort, no retractions, no use of accessory muscles and No clear to auscultation bilaterally Resp Narrative: Improved crackles compared to yesterday, still with mild tachypnea Auscultation: crackles; Negative for rales, rhonchi or wheezes Cardio S1 normal heart sound, S2 normal heart sound, no murmurs, no rub, no gallops and no clicks Cardio Narrative: Mild tachycardia and irregularly irregular rhythm GI normal to inspection, nondistended, normoactive bowel sounds, soft to palpation and non-tender Extremity Extremity Narrative: 2+ pedal and radial pulses, no cyanosis or clubbing, trace edema Neuro oriented x3, moves all extremities and no focal motor deficits Speech: speech normal Psych affect normal Psych Narrative: Very pleasant, interacts appropriately Assessment & Plan Assessment/Plan (1) Sepsis: QUALIFIERS: Sepsis type: sepsis due to unspecified organism Sepsis acute organ dysfunction status: unspecified Qualified Code(s): A41.9 - Sepsis, unspecified organism (2) SAMANTHA (acute kidney injury): (3) MSSA bacteremia: (4) Pancytopenia: PLAN: Plan Sepsis secondary to MSSA bacteremia secondary to Mediport infection - Mediport has been removed and area appears clean dry and intact -Continue antibiotics that are extremely broad-spectrum with meropenem, vancomycin, and voriconazole -Remains on prophylactic acyclovir - Blood cultures remain negative--> repeat cultures are again pending given persistent fevers -Urine culture is pending - Patient is still neutropenic Consider Granix after bone marrow biopsy-hopefully tomorrow depending on timing of bone marrow - Patient remains with fevers Persistent fevers - Patient with persistent fevers and Tmax overnight at 102.9 -Onc consultation requested and bone marrow aspiration biopsy -Concerned that it could be related to progressing AML -Bone marrow biopsy with flow cytometry and cultures ordered -CT of the chest abdomen pelvis performed and CT of the chest does show atypical pneumonia concerning for fungal pneumonia -Continue voriconazole/vancomycin/meropenem -MIAN was unremarkable - Sputum cultures shows normal oral tramaine - Strep pneumo and Legionella antigens are negative -Dopplers were unremarkable - Patient fairly adamant he does not want to be transferred to [facility] at this time however was agreeable to proceed with bone marrow biopsy Hypoxia - Worsening -Remains on 4 L nasal cannula - Sputum cultures shows normal oral tramaine - Continue broad spectrum antibiotics -Chest x-ray is stable - Continue oxygen and will obtain ambulatory pulse ox prior to discharge - Repeat Lasix - May need to consider bronchoscopy Hypokalemia - Potassium 2.8 likely related to diuresis - Will give twice daily dosing x 2 doses and recheck in a.m. - Magnesium is normal at 2.0 - Recheck in a.m. 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 Hemoglobin is 6.9 so we will transfuse 1 unit of CMV negative irradiated liquid depleted red blood cells - Do not transfuse platelets unless under 10,000--> remains relatively stable - Hemoglobin is relatively stable we will continue to monitor - Platelet count is low but stable and greater than 10,000 without any signs of spontaneous bleeding - Continue to monitor counts daily -Plan for Granix tomorrow once bone marrow gets done PAF - Patient with intermittent paroxysmal atrial fibrillation--currently in A-fib but fluctuates - Continue home diltiazem - Continue metoprolol - Patient not anticoagulated due to thrombocytopenia AML - Patient is currently on oral and IV chemo - Chemo is on hold - Continue home prophylactic medications - Bone marrow aspiration biopsy ordered - Onc following Essential hypertension - Continue metoprolol - Continue diltiazem History of tobacco abuse - Remote - Encouraged ongoing cessation DVT prophylaxis - SCDs - Chemoprophylaxis is contraindicated due to thrombocytopenia CODE STATUS -DNR CCA with no intubation Charges/Coding Visit Charges Inpatient E&M: 19433 Subs Hosp L2
[2025-02-17] MEDS: NORMAL SALINE 0.9% IV ×2 (10:06→21:58)
[2025-02-17] MEDS: VORICONAZOLE IV ×2 (10:06→21:58)
--- NOTE | 2025-02-17 13:45 | CT_ITS ---
EXAM: CT-guided left iliac bone bone marrow biopsy CLINICAL HISTORY: Acute myeloid leukemia. COMPARISON: None. TECHNIQUE: Conscious sedation was employed for this procedure, with start time of 1351 hours and stop time of 1412 hours. Intravenous administration of a total of 2 mg Versed and 100 mcg fentanyl was used. Following informed consent, and using standard sterile technique, a CT-guided bone marrow biopsy of the left iliac bone was performed via a posterior oblique approach. 2% lidocaine local anesthesia was followed by placement an 11 gauge core biopsy set. Approximately 3 mL fluid was aspirated in the initial syringe and approximately 4 mL in and heparinized syringe following. Following this, a core biopsy sample was obtained, and given to pathology. No complication was encountered, in the patient left the department in good condition without complaint. Dose: DLP 647.46 mGy-cm. CT/Biopsy/Inj or Needle Placement IMPRESSION: Successful left iliac bone CT-guided bone marrow biopsy. Pathology results robin bryant. Reading Location: [place] [id number]
[2025-02-17] MEDS: Midazolam 2 MG/2 ML Syringe IV ×2 (13:51→14:06)
[2025-02-17] MEDS: fentaNYL 100 MCG/2 ML Ampul IV ×2 (13:53→14:07)
[2025-02-17] MEDS: Lidocaine 2% (20 ml mdv) 20 ML Vial INFILT (13:58)
--- NOTE | 2025-02-17 14:59 | PN.ID_ITS ---
Physical Exam Narrative Feeling about the same. Had bone marrow bx done. Fever overnight. Some mild cough. Const alert and no apparent distress General Appearance: cooperative Resp normal air movement and clear to auscultation bilaterally Cardio regular rate and regular rhythm GI soft to palpation, non-tender and non-distended Skin no rashes or lesions noted ID ID: Route of nutrition/ use of supplements: [] Nutritional Intake: [] IV Site: [] Lay Catheter: [] Assessment & Plan Assessment/Plan (1) Neutropenic fever: PLAN: Neutropenic fever with MSSA bacteremia, suspected source is infected L chest port. Has been on chemo for AML. Elevated tbili, but RUQ and abd CT showed no infection. Bcx clear since 02/09/25. Port removed 02/10/[address] Jessica montelongo. Cont acyclovir for prophylaxis. Ongoing fever, nodular infiltrate on CT. Resp pcr panel neg. Pending ebv, cmv, sputum cx, fungal sputum cx, aspergillus, histo. Will cont vanc, marlene, vori. MIAN neg for endocarditis. Bone marrow bx done today, would send for AFB/fungal/viral staining. Had some sinus congestion, CT showed sinusitis. Will follow (2) MSSA bacteremia: (3) SAMANTHA (acute kidney injury):
[2025-02-17 16:09] LABS: EBV Acute VCA IgM < 36.0 U/mL (0.0-35.9); EBV-VCA IgG > 600.0 U/mL (0.0-17.9)
[2025-02-17 16:34] LABS: Vancomycin, Random Level 10.2 ug/mL (0.0-15.0)
--- NOTE | 2025-02-17 17:08 | PCM.RX.CS ---
Consult Antibiotic Management Pharmacy has been consulted to manage selected antibiotic: Vancomycin Type of Intervention Type of Consult: Follow-up Suspected Infection Suspected Infection: Sepsis and Other (Neutropenia ) Prior Doses of Antibiotics Prior Doses of Antibiotics Received/Current Regimen: 2000mg * 7 1750mg* 5 Labs Labs: Sodium 142 mmol/L (133-145) 02/17/25 01:43 Potassium 3.2 mmol/L (3.3-5.1) L 02/17/25 01:43 Chloride 101 mmol/L (98-108) 02/17/25 01:43 Carbon Dioxide 31.8 mmol/L (21.0-32.0) 02/17/25 01:43 Anion Gap 10 (5-15) 02/17/25 01:43 BUN 16 mg/dL (4-19) 02/17/25 01:43 Creatinine 0.94 mg/dL (0.70-1.20) 02/17/25 01:43 Est GFR (MDRD) Non-Af 92 (>60) 02/17/25 01:43 BUN/Creatinine Ratio 16.7 RATIO (10-20) 02/17/25 01:43 Glucose 109 mg/dL (70-99) H 02/17/25 01:43 Vancomycin Trough 25.4 ug/mL (5.0-15.0) H 02/17/25 01:43 Random Vancomycin 10.2 ug/mL (0.0-15.0) 02/17/25 15:21 Microbiology Microbiology: Microbiology 02/11/25 07:08 Blood Culture (Wb) - Anticubital Right Blood Culture - Final No growth in 5 days. 02/14/25 12:23 Sputum, Expectorated/Coughed Gram Stain - Final 02/14/25 12:23 Sputum, Expectorated/Coughed Respiratory Culture - Final 02/10/25 10:56 Blood Culture (Wb) - Venous Blood Culture - Final No growth in 5 days. 02/14/25 12:53 Urine, Clean Catch Legionella Antigen - Final 02/14/25 12:53 Urine, Clean Catch Streptococcus pneumoniae Antigen (M - Final 02/09/25 10:38 Blood Culture (Wb) - Anticubital Right Blood Culture - Final No growth in 5 days. 02/13/25 15:57 Mucosa - Nasopharyngeal Respiratory Panel (PCR) - Final 02/08/25 13:26 Blood Culture (Wb) - Anticubital Left Blood Culture - Final No growth in 5 days. 02/08/25 13:26 Blood Culture (Wb) - Anticubital Left Bacteria Detection (PCR) - Final Staphylococcus aureus 02/08/25 13:26 Blood Culture (Wb) - Anticubital Left Blood Culture - Final Staphylococcus aureus 02/08/25 12:49 Urine, Clean Catch Urine Culture - Final Culture exhibits no growth. 02/08/25 17:38 Mucosa - Nasopharyngeal Coronavirus COVID-19 PCR - Final 02/08/25 17:38 Mucosa - Nasopharyngeal Respiratory Panel (PCR) - Final Dosing Weight Weight used for dosin.8 kg Goal Trough Goal Trough: 15-20 mcg/mL Pharmacy Plan for Drug Dosing Pharmacy Plan for Drug Dosing: VANCOMYCIN LEVEL RECEIVED Current Vancomycin Dose: 1750 MG Q12H Number of Doses Received: NONE SINCE HELD (LAST DOSE 02/16/2025 @ 1534) Vancomycin Level: 10.2 Hours Since Last Dose: 23.5 Renal Function: 0.94 MG/L , CrCL: 99 ML/MIN Renal Function Trend: STABLE Lab/Micro: Vancomycin Plan/Comments: Upon SUPRAtheraputic level of 24.4 @ 0143 on 02/17/2025, dose was held another 12 hr. Level came back SUBtherapeutic AT 10.2. Will restart DOSING at 1250 mg q12h. Pharmacy Service will continue to monitor and adjust dosing as required. Pending Level: 02/19/2025 @0430 Follow-Up Labs Follow-Up Labs: Trough: Vancomycin Date/Time Labs Ordered Labs to be done on [date and time ordered]: 02/19/2025 @ 0430
[2025-02-17] MEDS: Vancomycin HCl 1,250 MG in 0.9% Normal Saline (250mL Bag) 250 ML 167 MG IV (18:33)
[2025-02-18] VITALS (8 sets, daily range): BP systolic 102–115; BP diastolic 67–79; PULSE 69–88; RESP 18; TEMP 36.9–38.3; O2SAT 92–94
[2025-02-18] MEDS: Vancomycin HCl 1,250 MG in 0.9% Normal Saline (250mL Bag) 250 ML 167 MG IV ×2 (05:38→17:14)
[2025-02-18] MEDS: Meropenem 1 GM in 0.9% Normal Saline (100mL MB+) 100 ML IV ×3 (05:38→21:10)
[2025-02-18 07:28] LABS: Hematocrit 24.0 % (40-54); Hemoglobin 8.1 g/dL (13.0-16.5); Immature Granulocytes Count 0.000 X10^3/uL (0.0-0.0); Mean Corp Hgb Conc 33.8 g/dL (32-36); Mean Corpuscular Volume 85.1 fL (80-94); Mean Platelet Vol. 10.3 fl (6.2-12.0); NRBC Flagged by Analyzer 15.4 % (0-5); POSITIVE COUNT YES; POSITIVE DIFFERENTIAL YES; POSITIVE MORPHOLOGY YES; Platelet Count 104 K/mm3 (150-450); RBC Distribution Width CV 15.5 % (11.6-14.6); RBC Distribution Width SD 47.9 fl (35.1-43.9); Red Blood Count 2.82 M/mm3 (4.6-6.2); White Blood Count 0.1 K/mm3 (4.4-11.0)
[2025-02-18 07:35] LABS: Differential Indicated SCAN CRITERIA MET
[2025-02-18 08:09] LABS: Anion Gap 9 (5-15); BUN 16 mg/dL (4-19); BUN/Creat Ratio 20.5 RATIO (10-20); Calcium,Total 7.7 mg/dL (7.6-11.0); Carbon Dioxide 30.3 mmol/L (21.0-32.0); Chloride 102 mmol/L (98-108); Estimated Creatinine Clearance 120.95 ml/min (50-250); Glucose 107 mg/dL (70-99); Potassium 3.2 mmol/L (3.3-5.1)
[2025-02-18 08:21] LABS: Hypochromasia 2+
--- NOTE | 2025-02-18 08:24 | PN.HOSP_ITS ---
Reason for Visit Chief Complaint: Fever Subjective Subjective Patient states he is feeling really good today and is good as he has in a while would like to go home. He still on 3 L nasal cannula. I did tell him I was pleased to see did not have any fevers overnight. He has not been in A-fib since yesterday. Objective Data Objective Data Vital Signs: Vital Signs Temp Pulse Resp BP Pulse Ox O2 Del Method O2 Flow Rate 98.6 F 69 18 114/67 92 Nasal Cannula 3 02/18/25 03:00 02/18/25 03:00 02/18/25 03:00 02/18/25 03:00 02/18/25 03:00 02/18/25 07:57 02/18/25 07:57 FiO2 90 02/18/25 07:57 Oxygen Flow Rate (L/min) 3 Oxygen Delivery Method Nasal Cannula Weight: 95.8 kg Body Mass Index (BMI) 28.6 Intake & Output: Intake and Output for Last 24 Hours 02/16/25 02/17/25 02/18/25 23:59 23:59 23:59 Intake Total 3574.25 / 3574.25 2989.05 / 2989.05 563 / 563 Output Total 1075 / 1075 675 / 675 Balance 2499.25 / 2499.25 2989.05 / 2789.05 -112 / -112 Lab / Micro Data 02/18/25 06:38 02/18/25 06:38 Labs: Laboratory Results - last 24 hr 02/14/25 09:44: CMV Qnt PCR IU/mL Negative, CMV Qnt PCR log IU/mL TNP, EBV Capsid Ag IgG Ab > 600.0 H, EBV Capsid Ag IgM Ab < 36.0, EBV Nuclear Ag IgG Ab > 600.0 H, EBV Antibody Interp Comment, Histoplasma Antibody Negative 02/17/25 04:29: Blood Type O POSITIVE, Antibody Screen NEGATIVE, Crossmatch See Detail 02/17/25 04:29: Crossmatch See Detail 02/17/25 15:21: Random Vancomycin 10.2 02/18/25 06:38: WBC 0.1 L*, RBC 2.82 L, Hgb 8.1 L, Hct 24.0 L, MCV 85.1, MCH 28.7, MCHC 33.8, RDW Std Deviation 47.9 H, RDW Coeff of Екатерина 15.5 H, Plt Count 104 L, MPV 10.3, Immature Gran % (Auto) 0.000, Neut % (Auto) 46.1 L, Lymph % (Auto) 46.2 H, [place] % (Auto) 7.7, Eos % (Auto) 0.0, Baso % (Auto) 0.0, Absolute Neuts (auto) 0.1 L, Absolute Lymphs (auto) 0.06 L, Nucleated RBC % 15.4 H, Differential Comment , Hypochromasia 2+, Sodium 142, Potassium 3.2 L, Chloride 102, Carbon Dioxide 30.3, Anion Gap 9, BUN 16, Creatinine 0.77, Estim Creat Clear Calc 120.95, Est GFR (MDRD) Non-Af 102, BUN/Creatinine Ratio 20.5 H, G lucose 107 H, Calcium 7.7 Micro: Microbiology 02/11/25 07:08 Blood Culture (Wb) - Anticubital Right Blood Culture - Final No growth in 5 days. 02/14/25 12:23 Sputum, Expectorated/Coughed Gram Stain - Final 02/14/25 12:23 Sputum, Expectorated/Coughed Respiratory Culture - Final 02/10/25 10:56 Blood Culture (Wb) - Venous Blood Culture - Final No growth in 5 days. 02/14/25 12:53 Urine, Clean Catch Legionella Antigen - Final 02/14/25 12:53 Urine, Clean Catch Streptococcus pneumoniae Antigen (M - Final 02/09/25 10:38 Blood Culture (Wb) - Anticubital Right Blood Culture - Final No growth in 5 days. 02/13/25 15:57 Mucosa - Nasopharyngeal Respiratory Panel (PCR) - Final 02/08/25 13:26 Blood Culture (Wb) - Anticubital Left Blood Culture - Final No growth in 5 days. 02/08/25 13:26 Blood Culture (Wb) - Anticubital Left Bacteria Detection (PCR) - Final Staphylococcus aureus 02/08/25 13:26 Blood Culture (Wb) - Anticubital Left Blood Culture - Final Staphylococcus aureus 02/08/25 12:49 Urine, Clean Catch Urine Culture - Final Culture exhibits no growth. 02/08/25 17:38 Mucosa - Nasopharyngeal Coronavirus COVID-19 PCR - Final 02/08/25 17:38 Mucosa - Nasopharyngeal Respiratory Panel (PCR) - Final Radiography Diagnostic Testing: Radiology Impression Biopsy CT 02/17/25 13:45 IMPRESSION: Successful left iliac bone CT-guided bone marrow biopsy. Pathology results pending. Reading Location: [place] [address] Rhythm Strip Rhythm Strip: Sinus Rhythm Rate: 94 Ectopy: None Physical Exam Const alert, oriented x3, no apparent distress and well nourished; Negative for average body habitus or healthy appearing Constitutional Narrative: Overweight, upper middle-aged, white male, sitting up in bed, lying in bed, appears comfortable, nursing at bedside General Appearance: cooperative, well kempt and well developed HEENT normocephalic, head/scalp atraumatic and moist oral mucous membranes HEENT Narrative: No thrush Resp normal respiratory effort, no retractions, no use of accessory muscles and No clear to auscultation bilaterally Resp Narrative: Still with some scattered crackles, no tachypnea today, appears stable on 3 L nasal cannula Auscultation: crackles; Negative for rales, rhonchi or wheezes Cardio regular rate, regular rhythm, S1 normal heart sound, S2 normal heart sound, no murmurs, no rub, no gallops and no clicks Cardio Narrative: Currently in normal sinus rhythm GI normal to inspection, nondistended, normoactive bowel sounds, soft to palpation and non-tender Extremity Extremity Narrative: 2+ pedal and radial pulses, no cyanosis or clubbing, trace edema Neuro oriented x3, moves all extremities and no focal motor deficits Speech: speech normal Psych affect normal Psych Narrative: Very pleasant, interacts appropriately Assessment & Plan Assessment/Plan (1) Sepsis: QUALIFIERS: Sepsis type: sepsis due to unspecified organism S epsis acute organ dysfunction status: unspecified Qualified Code(s): A41.9 - Sepsis, unspecified organism (2) SAMANTHA (acute kidney injury): (3) MSSA bacteremia: (4) Pancytopenia: PLAN: Plan Sepsis secondary to MSSA bacteremia secondary to Mediport infection - Mediport has been removed and area appears clean dry and intact -Continue antibiotics that are extremely broad-spectrum with meropenem, vancomycin, and voriconazole -Remains on prophylactic acyclovir - Blood cultures remain negative--> repeat cultures are negative at 48 hours again -Urine culture is negative - Patient is still neutropenic -Will dose Granix today - Patient remains with fevers Persistent fevers - Patient with Tmax in the last 24 hours 100.4 no fevers as of yet today -Onc consultation requested a bone marrow aspiration and biopsy - Biopsy results are pending -CT of the chest abdomen pelvis performed and CT of the chest does show atypical pneumonia concerning for fungal pneumonia -Continue voriconazole/vancomycin/meropenem -MIAN was unremarkable - Bone marrow aspirate is pending -Dopplers were unremarkable - Patient fairly adamant he does not want to be transferred to [facility] at this time however was agreeable to proceed with bone marrow biopsy Hypoxia - Some better today with oxygen weaned to 3 L - Continue broad spectrum antimicrobials - Continue oxygen and will obtain ambulatory pulse ox prior to discharge - Repeat Lasix 40 mg IV push again today - May need to consider bronchoscopy if does not improve clinically however seems to finally be weaning oxygen Hypokalemia - Potassium 3.2 likely down due to diuretics - Replacement again today - Magnesium remains normal - Recheck in a.m. 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 Hemoglobin yesterday was 6.9 so received 2 units packed red blood cells and hemoglobin is up to 8.1 - Do not transfuse platelets unless under 10,000--> remains relatively stable - Hemoglobin is relatively stable we will continue to monitor - Platelet count is low but stable and greater than 10,000 without any signs of spontaneous bleeding - Continue to monitor counts daily - Give Granix today per oncology recommendations now that bone marrow biopsy is done PAF - Patient with intermittent paroxysmal atrial fibrillation--currently in A-fib but fluctuates - Continue home diltiazem - Continue metoprolol - Patient not anticoagulated due to thrombocytopenia AML - 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
[2025-02-18] MEDS: Potassium Chloride Oral Tablet 20 MEQ 60 MEQ PO (08:58)
[2025-02-18] MEDS: NORMAL SALINE 0.9% IV ×2 (10:22→21:01)
[2025-02-18] MEDS: VORICONAZOLE IV ×2 (10:22→21:01)
[2025-02-18] MEDS: TBO-FILGRASTIM 480 MCG/0.8 ML ML SC (14:05)
[2025-02-18] MEDS: 0.9% Normal Saline (250mL Bag) 250 ML 15 ML IV (21:00)
[2025-02-19] VITALS (11 sets, daily range): BP systolic 91–126; BP diastolic 59–69; PULSE 73–151; RESP 16–18; TEMP 36.7–37.9; O2SAT 88–94
[2025-02-19 04:59] LABS: Hematocrit 26.0 % (40-54); Hemoglobin 8.6 g/dL (13.0-16.5); Immature Granulocytes Count 0.030 X10^3/uL (0.0-0.0); Mean Corp Hgb Conc 33.1 g/dL (32-36); Mean Corpuscular Volume 86.7 fL (80-94); Mean Platelet Vol. 10.1 fl (6.2-12.0); NRBC Flagged by Analyzer 9.7 % (0-5); POSITIVE COUNT YES; POSITIVE DIFFERENTIAL YES; POSITIVE MORPHOLOGY YES; Platelet Count 142 K/mm3 (150-450); RBC Distribution Width CV 15.8 % (11.6-14.6); RBC Distribution Width SD 49.1 fl (35.1-43.9); Red Blood Count 3.00 M/mm3 (4.6-6.2)
[2025-02-19 05:16] LABS: Vancomycin, Trough Level 15.2 ug/mL (5.0-15.0)
--- NOTE | 2025-02-19 05:26 | PCM.RX.CS ---
Consult Antibiotic Management Pharmacy has been consulted to manage selected antibiotic: Vancomycin Type of Intervention Type of Consult: Follow-up Labs Labs: Vancomycin Trough 15.2 ug/mL (5.0-15.0) H 02/19/25 04:30 Random Vancomycin 10.2 ug/mL (0.0-15.0) 02/17/25 15:21 Microbiology Microbiology: Microbiology 02/16/25 10:35 Blood Culture (Wb) - Left Forearm Blood Culture - Preliminary No growth in 48 hours. 02/16/25 10:25 Blood Culture (Wb) - Arm Left Blood Culture - Preliminary No growth in 48 hours. 02/16/25 12:51 Urine, Clean Catch Urine Culture - Final Culture exhibits no growth. 02/11/25 07:08 Blood Culture (Wb) - Anticubital Right Blood Culture - Final No growth in 5 days. 02/14/25 12:23 Sputum, Expectorated/Coughed Gram Stain - Final 02/14/25 12:23 Sputum, Expectorated/Coughed Respiratory Culture - Final 02/10/25 10:56 Blood Culture (Wb) - Venous Blood Culture - Final No growth in 5 days. 02/14/25 12:53 Urine, Clean Catch Legionella Antigen - Final 02/14/25 12:53 Urine, Clean Catch Streptococcus pneumoniae Antigen (M - Final 02/09/25 10:38 Blood Culture (Wb) - Anticubital Right Blood Culture - Final No growth in 5 days. 02/13/25 15:57 Mucosa - Nasopharyngeal Respiratory Panel (PCR) - Final 02/08/25 13:26 Blood Culture (Wb) - Anticubital Left Blood Culture - Final No growth in 5 days. 02/08/25 13:26 Blood Culture (Wb) - Anticubital Left Bacteria Detection (PCR) - Final Staphylococcus aureus 02/08/25 13:26 Blood Culture (Wb) - Anticubital Left Blood Culture - Final Staphylococcus aureus 02/08/25 12:49 Urine, Clean Catch Urine Culture - Final Culture exhibits no growth. 02/08/25 17:38 Mucosa - Nasopharyngeal Coronavirus COVID-19 PCR - Final 02/08/25 17:38 Mucosa - Nasopharyngeal Respiratory Panel (PCR) - Final Dosing Weight Weight used for dosin kg Estimated Creatinine Clearance Estimated Creatinine Clearance: 121 Goal Trough Goal Trough: 15-20 mcg/mL Pharmacy Plan for Drug Dosing Pharmacy Plan for Drug Dosing: Vancomycin trough level of 15.2, drawn 11.25hrs post-dose, was within the target range of 15-20. Will continue dosing at 1250mg q12h and will draw another trough level in two days. Pharmacy Service will continue to monitor and adjust dosing as required. Follow-Up Labs Follow-Up Labs: Trough: Vancomycin Date/Time Labs Ordered Labs to be done on [date and time ordered]: 02/21/25 @0748
[2025-02-19 05:36] LABS: Anion Gap 12 (5-15); BUN 16 mg/dL (4-19); BUN/Creat Ratio 19.9 RATIO (10-20); Calcium,Total 7.9 mg/dL (7.6-11.0); Carbon Dioxide 29.6 mmol/L (21.0-32.0); Chloride 102 mmol/L (98-108); Estimated Creatinine Clearance 113.58 ml/min (50-250); Glucose 105 mg/dL (70-99); Magnesium 2.0 mg/dL (1.5-2.2); Potassium 3.1 mmol/L (3.3-5.1)
[2025-02-19] MEDS: Vancomycin HCl 1,250 MG in 0.9% Normal Saline (250mL Bag) 250 ML 167 MG IV ×2 (05:37→17:26)
[2025-02-19] MEDS: Meropenem 1 GM in 0.9% Normal Saline (100mL MB+) 100 ML IV ×3 (05:37→22:58)
[2025-02-19 05:43] LABS: Differential Indicated SCAN CRITERIA MET; White Blood Count 0.3 K/mm3 (4.4-11.0)
[2025-02-19] MEDS: 0.9% Saline Lock 10 ML Syringe IV ×2 (05:48→11:30)
[2025-02-19 06:26] LABS: Differential Comment SCANNED
--- NOTE | 2025-02-19 07:30 | PN.HOSP_ITS ---
Reason for Visit Chief Complaint: Fever Subjective Subjective Tmax overnight was 100.9. Overall temperature curve seems to be better. Patient without complaints. Seems to be fluctuating between 3 and 4 L nasal cannula. Has not been very compliant with incentive spirometer and Acapella and Chang to get him a new one. I discussed with him we can continue what we are doing with antimicrobial's, give him a bit more diuretics and to wait for bone marrow biopsy to result. Objective Data Objective Data Vital Signs: Vital Signs Temp Pulse Resp BP Pulse Ox O2 Del Method O2 Flow Rate 99.8 F H 135 H 18 126/67 H 88 Nasal Cannula 3 02/19/25 04:00 02/19/25 04:26 02/19/25 04:00 02/19/25 04:00 02/19/25 04:00 02/19/25 04:00 02/19/25 04:00 FiO2 90 02/18/25 07:57 Oxygen Flow Rate (L/min) 3 Oxygen Delivery Method Nasal Cannula Weight: 95.8 kg Body Mass Index (BMI) 28.6 Intake & Output: Intake and Output for Last 24 Hours 02/17/25 02/18/25 02/19/25 23:59 23:59 23:59 Intake Total 2989.05 / 2989.05 2722.7 / 2722.7 Output Total 1575 / 1975 800 / 800 Balance 2989.05 / 2789.05 1147.7 / 747.7 -800 / -800 Lab / Micro Data 02/19/25 04:30 02/19/25 04:30 Labs: Laboratory Results - last 24 hr 02/17/25 04:29: Crossmatch See Detail 02/18/25 06:38: WBC 0.1 L*, RBC 2.82 L, Hgb 8.1 L, Hct 24.0 L, MCV 85.1, MCH 28.7, MCHC 33.8, RDW Std Deviation 47.9 H, RDW Coeff of Екатерина 15.5 H, Plt Count 104 L, MPV 10.3, Immature Gran % (Auto) 0.000, Neut % (Auto) 46.1 L, Lymph % (Auto) 46.2 H, [place] % (Auto) 7.7, Eos % (Auto) 0.0, Baso % (Auto) 0.0, Absolute Neuts (auto) 0.1 L, Absolute Lymphs (auto) 0.06 L, Nucleated RBC % 15.4 H, Differential Comment , Hypochromasia 2+, Sodium 142, Potassium 3.2 L, Chloride 102, Carbon Dioxide 30.3, Anion Gap 9, BUN 16, Creatinine 0.77, Estim Creat Clear Calc 120.95, Est GFR (MDRD) Non-Af 102, BUN/Creatinine Ratio 20.5 H, G lucose 107 H, Calcium 7.7 02/19/25 04:30: WBC 0.3 L*, RBC 3.00 L, Hgb 8.6 L, Hct 26.0 L, MCV 86.7, MCH 28.7, MCHC 33.1, RDW Std Deviation 49.1 H, RDW Coeff of Екатерина 15.8 H, Plt Count 142 L, MPV 10.1, Immature Gran % (Auto) 9.700 H, Neut % (Auto) 32.3 L, Lymph % (Auto) 51.6 H, [place] % (Auto) 3.2, Eos % (Auto) 0.0, Baso % (Auto) 3.2 H, A bsolute Neuts (auto) 0.1 L, Absolute Lymphs (auto) 0.16 L, Nucleated RBC % 9.7 H , Differential Comment SCANNED, Sodium 143, Potassium 3.1 L, Chloride 102, Carbon Dioxide 29.6, Anion Gap 12, BUN 16, Creatinine 0.82, Estim Creat Clear Calc 113.58, Est GFR (MDRD) Non-Af 100, BUN/Creatinine Ratio 19.9, Glucose 105 H , Calcium 7.9, Magnesium 2.0, Vancomycin Trough 15.2 H Micro: Microbiology 02/16/25 10:35 Blood Culture (Wb) - Left Forearm Blood Culture - Preliminary No growth in 48 hours. 02/16/25 10:25 Blood Culture (Wb) - Arm Left Blood Culture - Preliminary No growth in 48 hours. 02/16/25 12:51 Urine, Clean Catch Urine Culture - Final Culture exhibits no growth. 02/11/25 07:08 Blood Culture (Wb) - Anticubital Right Blood Culture - Final No growth in 5 days. 02/14/25 12:23 Sputum, Expectorated/Coughed Gram Stain - Final 02/14/25 12:23 Sputum, Expectorated/Coughed Respiratory Culture - Final 02/10/25 10:56 Blood Culture (Wb) - Venous Blood Culture - Final No growth in 5 days. 02/14/25 12:53 Urine, Clean Catch Legionella Antigen - Final 02/14/25 12:53 Urine, Clean Catch Streptococcus pneumoniae Antigen (M - Final 02/09/25 10:38 Blood Culture (Wb) - Anticubital Right Blood Culture - Final No growth in 5 days. 02/13/25 15:57 Mucosa - Nasopharyngeal Respiratory Panel (PCR) - Final 02/08/25 13:26 Blood Culture (Wb) - Anticubital Left Blood Culture - Final No growth in 5 days. 02/08/25 13:26 Blood Culture (Wb) - Anticubital Left Bacteria Detection (PCR) - Final Staphylococcus aureus 02/08/25 13:26 Blood Culture (Wb) - Anticubital Left Blood Culture - Final Staphylococcus aureus 02/08/25 12:49 Urine, Clean Catch Urine Culture - Final Culture exhibits no growth. 02/08/25 17:38 Mucosa - Nasopharyngeal Coronavirus COVID-19 PCR - Final 02/08/25 17:38 Mucosa - Nasopharyngeal Respiratory Panel (PCR) - Final Rhythm Strip Rhythm Strip: Sinus Rhythm Rate: 94 Ectopy: None Physical Exam Const alert, oriented x3, no apparent distress and well nourished; Negative for average body habitus or healthy appearing Constitutional Narrative: Overweight, upper middle-aged, white male, lying in bed, appears comfortable, nursing at bedside General Appearance: cooperative, well kempt and well developed HEENT normocephalic, head/scalp atraumatic and moist oral mucous membranes Resp normal respiratory effort, no retractions, no use of accessory muscles and No clear to auscultation bilaterally Resp Narrative: Still few very fine crackles but adventitious sounds have improved significantly Auscultation: crackles; Negative for rales, rhonchi or wheezes Cardio regular rate, regular rhythm, S1 normal heart sound, S2 normal heart sound, no murmurs, no rub, no gallops and no clicks Cardio Narrative: Currently in normal sinus rhythm GI normal to inspection, nondistended, normoactive bowel sounds, soft to palpation and non-tender Extremity Extremity Narrative: 2+ pedal and radial pulses, no cyanosis or clubbing, 1+ bilateral lower extremity pitting edema Neuro moves all extremities and no focal motor deficits Sensorium / Orientation: awake Speech: speech normal Psych affect normal Psych Narrative: Very pleasant, interacts appropriately Assessment & Plan Assessment/Plan (1) Sepsis: QUALIFIERS: Sepsis type: sepsis due to unspecified organism S epsis acute organ dysfunction status: unspecified Qualified Code(s): A41.9 - Sepsis, unspecified organism (2) SAMANTHA (acute kidney injury): (3) MSSA bacteremia: (4) Pancytopenia: PLAN: Plan Sepsis secondary to MSSA bacteremia secondary to Mediport infection - Mediport has been removed and area appears clean dry and intact -Continue antibiotics that are extremely broad-spectrum with meropenem, vancomycin, and voriconazole -Remains on prophylactic acyclovir - Blood cultures remain negative--> repeat negative cultures as well -Urine culture is negative - Patient is still neutropenic - Continue Granix daily until ANC is greater than 500 - Patient remains with fevers however fever curve seems to be improving Persistent fevers - Patient with Tmax in the last 24 hours 100.9 -Onc consultation requested a bone marrow aspiration and biopsy - Biopsy results are pending hopeful for results in the next 24 hours -CT of the chest abdomen pelvis performed and CT of the chest does show atypical pneumonia concerning for fungal pneumonia -Continue voriconazole/vancomycin/meropenem -MIAN was unremarkable - Bone marrow aspirate is pending -Dopplers were unremarkable - Patient fairly adamant he does not want to be transferred to [facility] at this time however was agreeable to proceed with bone marrow biopsy - Fever curve does seem to be improving Hypoxia - Fluctuates between 3 and 4 L - Continue broad spectrum antimicrobials - Continue oxygen and will obtain ambulatory pulse ox prior to discharge - Lasix 40 mg IV x 2 doses today - May need to consider bronchoscopy if does not improve clinically however seems to finally be weaning oxygen Hypokalemia -Potassium 3.1 today - Replacement again today with 60 mill colons p.o. twice daily for 2 doses - Magnesium remains normal - Recheck in a.m. 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 -Remains abnormal with fluctuation - Jase was 6.9 and received 1 unit packed red blood cells - Hemoglobin currently stable at 8.6 - Do not transfuse platelets unless under 10,000--> remains relatively stable - Hemoglobin is relatively stable we will continue to monitor -Platelet count continues to trend up is now was 142,000 - Continue to monitor counts daily -Continue Granix PAF - Patient with intermittent paroxysmal atrial fibrillation--currently in A-fib but fluctuates - Continue home diltiazem - Continue metoprolol - Patient not anticoagulated due to thrombocytopenia AML - Patient is currently on oral and IV chemo - Chemo is on hold - Continue home prophylactic medications - Bone marrow aspiration biopsy is pending results hopeful for results in next 24 hours - Onc following Essential hypertension - Continue metoprolol - Continue diltiazem History of tobacco abuse - Remote - Encouraged ongoing cessation DVT prophylaxis -Initiate chemoprophylaxis is platelet count is now greater than 100,000 CODE STATUS -DNR CCA with no intubation Charges/Coding Visit Charges Inpatient E&M: 36149 Subs Hosp L2
[2025-02-19] MEDS: Potassium Chloride Oral Tablet 20 MEQ 60 MEQ PO ×2 (08:31→17:25)
[2025-02-19] MEDS: TBO-FILGRASTIM 480 MCG/0.8 ML ML SC (09:59)
[2025-02-19] MEDS: Senna/Docusate Sodium 1 Tablet 2 TABLET PO ×2 (10:00→21:17)
[2025-02-19] MEDS: NORMAL SALINE 0.9% IV ×2 (10:01→19:44)
[2025-02-19] MEDS: VORICONAZOLE IV ×2 (10:01→19:44)
[2025-02-20] VITALS (9 sets, daily range): BP systolic 104–132; BP diastolic 59–85; PULSE 75–87; RESP 16–18; TEMP 36.7–37.7; O2SAT 92–97
[2025-02-20] MEDS: Vancomycin HCl 1,250 MG in 0.9% Normal Saline (250mL Bag) 250 ML 167 MG IV ×2 (04:08→16:24)
[2025-02-20] MEDS: Meropenem 1 GM in 0.9% Normal Saline (100mL MB+) 100 ML IV ×3 (06:05→22:29)
[2025-02-20 06:13] LABS: Hematocrit 24.5 % (40-54); Hemoglobin 7.9 g/dL (13.0-16.5); Immature Granulocytes Count 0.010 X10^3/uL (0.0-0.0); Mean Corp Hgb Conc 32.2 g/dL (32-36); Mean Corpuscular Volume 88.4 fL (80-94); Mean Platelet Vol. 9.8 fl (6.2-12.0); NRBC Flagged by Analyzer 4.8 % (0-5); POSITIVE COUNT YES; POSITIVE DIFFERENTIAL YES; POSITIVE MORPHOLOGY YES; Platelet Count 193 K/mm3 (150-450); RBC Distribution Width CV 15.7 % (11.6-14.6); RBC Distribution Width SD 50.4 fl (35.1-43.9); Red Blood Count 2.77 M/mm3 (4.6-6.2)
[2025-02-20 06:30] LABS: Differential Indicated SCAN CRITERIA MET; White Blood Count 0.4 K/mm3 (4.4-11.0)
[2025-02-20 06:49] LABS: Anion Gap 11 (5-15); BUN 18 mg/dL (4-19); BUN/Creat Ratio 22.6 RATIO (10-20); Calcium,Total 7.9 mg/dL (7.6-11.0); Carbon Dioxide 30.0 mmol/L (21.0-32.0); Chloride 105 mmol/L (98-108); Estimated Creatinine Clearance 114.98 ml/min (50-250); Glucose 104 mg/dL (70-99); Potassium 3.5 mmol/L (3.3-5.1)
[2025-02-20 07:01] LABS: Differential Comment SCANNED
--- NOTE | 2025-02-20 07:30 | PN.HOSP_ITS ---
Reason for Visit Chief Complaint: Fever Subjective Subjective Patient has no complaints. Feeling well at this time. Has been weaned to 2 L of oxygen. States he was up every hour or through the night doing incentive spirometer and Acapella. Hoping to go home soon. Objective Data Objective Data Vital Signs: Vital Signs Temp Pulse Resp BP Pulse Ox O2 Del Method O2 Flow Rate 98.8 F 78 18 104/70 93 Nasal Cannula 4 02/20/25 03:15 02/20/25 03:15 02/20/25 03:15 02/20/25 03:15 02/20/25 03:15 02/20/25 03:15 02/20/25 03:15 FiO2 90 02/18/25 07:57 Oxygen Flow Rate (L/min) 4 Oxygen Delivery Method Nasal Cannula Weight: 95.8 kg Body Mass Index (BMI) 28.6 Intake & Output: Intake and Output for Last 24 Hours 02/18/25 02/19/25 02/20/25 23:59 23:59 23:59 Intake Total 2722.7 / 2722.7 2176 / 2376 775 / 775 Output Total 1575 / 1975 2150 / 2850 700 / 700 Balance 1147.7 / 747.7 26 / -474 75 / 75 Lab / Micro Data 02/20/25 05:42 02/20/25 05:42 Labs: Laboratory Results - last 24 hr 02/20/25 05:42: WBC 0.4 L*, RBC 2.77 L, Hgb 7.9 L, Hct 24.5 L, MCV 88.4, MCH 28.5, MCHC 32.2, RDW Std Deviation 50.4 H, RDW Coeff of Екатерина 15.7 H, Plt Count 193, MPV 9.8, Immature Gran % (Auto) 2.400 H, Neut % (Auto) 59.5, Lymph % (Auto) 33.3, [place] % (Auto) 4.8, Eos % (Auto) 0.0, Baso % (Auto) 0.0, Absolute Neuts (auto) 0.3 L, Absolute Lymphs (auto) 0.14 L, Nucleated RBC % 4.8, Differential Comment SCANNED, Sodium 145, Potassium 3.5, Chloride 105, Carbon Dioxide 30.0, Anion Gap 11, BUN 18, Creatinine 0.81, Estim Creat Clear Calc 114.98, Est GFR (MDRD) Non-Af 100, BUN/Creatinine Ratio 22.6 H, Glucose 104 H, Calcium 7.9 Micro: Microbiology 02/16/25 10:35 Blood Culture (Wb) - Left Forearm Blood Culture - Preliminary No growth in 48 hours. 02/16/25 10:25 Blood Culture (Wb) - Arm Left Blood Culture - Preliminary No growth in 48 hours. 02/16/25 12:51 Urine, Clean Catch Urine Culture - Final Culture exhibits no growth. 02/11/25 07:08 Blood Culture (Wb) - Anticubital Right Blood Culture - Final No growth in 5 days. 02/14/25 12:23 Sputum, Expectorated/Coughed Gram Stain - Final 02/14/25 12:23 Sputum, Expectorated/Coughed Respiratory Culture - Final 02/10/25 10:56 Blood Culture (Wb) - Venous Blood Culture - Final No growth in 5 days. 02/14/25 12:53 Urine, Clean Catch Legionella Antigen - Final 02/14/25 12:53 Urine, Clean Catch Streptococcus pneumoniae Antigen (M - Final 02/09/25 10:38 Blood Culture (Wb) - Anticubital Right Blood Culture - Final No growth in 5 days. 02/13/25 15:57 Mucosa - Nasopharyngeal Respiratory Panel (PCR) - Final 02/08/25 13:26 Blood Culture (Wb) - Anticubital Left Blood Culture - Final No growth in 5 days. 02/08/25 13:26 Blood Culture (Wb) - Anticubital Left Bacteria Detection (PCR) - Final Staphylococcus aureus 02/08/25 13:26 Blood Culture (Wb) - Anticubital Left Blood Culture - Final Staphylococcus aureus 02/08/25 12:49 Urine, Clean Catch Urine Culture - Final Culture exhibits no growth. 02/08/25 17:38 Mucosa - Nasopharyngeal Coronavirus COVID-19 PCR - Final 02/08/25 17:38 Mucosa - Nasopharyngeal Respiratory Panel (PCR) - Final Rhythm Strip Rhythm Strip: Sinus Rhythm Rate: 94 Ectopy: None Physical Exam Const alert, oriented x3, no apparent distress and well nourished; Negative for average body habitus or healthy appearing Constitutional Narrative: Overweight, upper middle-aged, white male, sitting up in bed, appears comfortable, nursing at bedside, does not appear toxic General Appearance: cooperative, well kempt and well developed HEENT normocephalic, head/scalp atraumatic and moist oral mucous membranes HEENT Narrative: No thrush Neck Neck Narrative: Trachea midline Resp normal respiratory effort, no retractions, no use of accessory muscles and clear to auscultation bilaterally Auscultation: Negative for crackles, rhonchi or wheezes Cardio regular rate, regular rhythm, S1 normal heart sound, S2 normal heart sound, no murmurs, no rub, no gallops and no clicks GI normal to inspection, nondistended, normoactive bowel sounds, soft to palpation and non-tender Extremity no clubbing, cyanosis or edema Extremity Narrative: 2+ pedal and radial pulses, no cyanosis or clubbing, trace bilateral lower extremity pitting edema Neuro moves all extremities and no focal motor deficits Speech: speech normal Psych affect normal Psych Narrative: Very pleasant, interacts appropriately Assessment & Plan Assessment/Plan (1) Sepsis: QUALIFIERS: Sepsis type: sepsis due to unspecified organism S epsis acute organ dysfunction status: unspecified Qualified Code(s): A41.9 - Sepsis, unspecified organism (2) SAMANTHA (acute kidney injury): (3) MSSA bacteremia: (4) Pancytopenia: PLAN: Plan Sepsis secondary to MSSA bacteremia secondary to Mediport infection - Mediport has been removed and area appears clean dry and intact -Continue antibiotics that are extremely broad-spectrum with meropenem, vancomycin, and voriconazole -Remains on prophylactic acyclovir -Per discussion with ID we will go ahead and place order for PICC Definitive discharge antibiotics have not yet been determined - - Patient is still neutropenic - Continue Granix daily until ANC is greater than 500--> currently up to 300 - Patient remains with fevers however fever curve seems to be improving Persistent fevers - Patient with Tmax in the last 24 hours 100.9 -Onc consultation requested a bone marrow aspiration and biopsy - Biopsy results are still pending -Continue voriconazole/vancomycin/meropenem -MIAN was unremarkable - Bone marrow aspirate is pending Hypoxia - Resolving and wean to 2 L with good saturation will try to wean further today - Continue broad spectrum antimicrobials - Continue oxygen and will obtain ambulatory pulse ox prior to discharge - Hold Lasix today Hypokalemia - Resolved 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 - Platelet count is normalized - Hemoglobin is relatively stable - No signs of acute bleeding - Continue to monitor white count and this should trend up with ongoing Granix use -Continue Granix PAF - Patient with intermittent paroxysmal atrial fibrillation--currently in sinus rhythm but did have some A-fib last evening - Continue home diltiazem - Continue metoprolol - Patient not anticoagulated due to thrombocytopenia AML - 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
[2025-02-20] MEDS: NORMAL SALINE 0.9% IV ×2 (09:55→19:51)
[2025-02-20] MEDS: VORICONAZOLE IV ×2 (09:55→19:51)
[2025-02-20] MEDS: TBO-FILGRASTIM 480 MCG/0.8 ML ML SC (09:56)
--- NOTE | 2025-02-20 11:13 | PCM.PN.ID ---
Physical Exam Narrative Feeling better, fever improved, cough better, no n/v/d. Const alert and no apparent distress General Appearance: cooperative Resp Auscultation: diminished lung sounds Cardio regular rate and regular rhythm GI soft to palpation, non-tender and non-distended Skin no rashes or lesions noted ID ID: Route of nutrition/ use of supplements: [] Nutritional Intake: [] IV Site: [] Lay Catheter: [] Assessment & Plan Assessment/Plan (1) Neutropenic fever: PLAN: Neutropenic fever with MSSA bacteremia, suspected source is infected L chest port. Has been on chemo for AML. Elevated tbili, but RUQ and abd CT showed no infection. Bcx clear since 02/09/25. Port removed 02/10/[address] Danielson. Cont acyclovir for prophylaxis. Ongoing fever, nodular infiltrate on CT. Resp pcr panel neg. Pending ebv, cmv, sputum cx, fungal sputum cx, aspergillus, histo. Will cont vanc, marlene, vori. MIAN neg for endocarditis. Bone marrow bx results pending. Had some sinus congestion, CT showed sinusitis. Fever and counts improved, ok for picc. Will follow, d/w primary team. (2) MSSA bacteremia: (3) SAMANTHA (acute kidney injury):
[2025-02-20 13:19] LABS: Pathology Sent to OSU SEE PATHOLOGY REPORT
--- NOTE | 2025-02-20 15:48 | CASEMGMT ---
TIM ST on floor asked this RN ALMA ROSA to discuss HHC and Infusion companies with pt for DC planning. Printed list of local [facility] agencies covered under insurance, Pt chose [facility]. Provided verbal list of infusion companies to deliver medications. Pt chose [facility]. Pt asked for pressure ball for home antibiotics if possible. RN ALMA ROSA notified RN ALMA ROSA on floor. Called [facility] and made referral, will let us know if able to accept. RN ALMA ROSA sent referral to [facility] via [facility]port, waiting on acceptance.
[2025-02-20] MEDS: 0.9 % NaCl (Sterile) Posiflush 10 mL IV (19:42)
[2025-02-20] MEDS: Senna/Docusate Sodium 1 Tablet 2 TABLET PO (20:15)
[2025-02-21] VITALS (7 sets, daily range): BP systolic 98–126; BP diastolic 61–91; PULSE 87–148; RESP 17–18; TEMP 36.8–37.6; O2SAT 94–96
[2025-02-21 04:53] LABS: Hematocrit 25.8 % (40-54); Hemoglobin 8.1 g/dL (13.0-16.5); Mean Corp Hgb Conc 31.4 g/dL (32-36); Mean Corpuscular Volume 91.5 fL (80-94); Mean Platelet Vol. 10.3 fl (6.2-12.0); POSITIVE COUNT YES; POSITIVE DIFFERENTIAL YES; POSITIVE MORPHOLOGY YES; Platelet Count 217 K/mm3 (150-450); RBC Distribution Width CV 15.9 % (11.6-14.6); RBC Distribution Width SD 52.1 fl (35.1-43.9); Red Blood Count 2.82 M/mm3 (4.6-6.2)
[2025-02-21 05:03] LABS: Differential Indicated MANUAL DIFF; White Blood Count 1.1 K/mm3 (4.4-11.0)
[2025-02-21] MEDS: Meropenem 1 GM in 0.9% Normal Saline (100mL MB+) 100 ML IV ×3 (05:05→22:59)
[2025-02-21 05:31] LABS: Vancomycin, Trough Level 16.0 ug/mL (5.0-15.0)
--- NOTE | 2025-02-21 05:37 | PCM.RX.CS ---
Consult Antibiotic Management Pharmacy has been consulted to manage selected antibiotic: Vancomycin Type of Intervention Type of Consult: Follow-up Labs Labs: Vancomycin Trough 16.0 ug/mL (5.0-15.0) H 02/21/25 04:41 Random Vancomycin 10.2 ug/mL (0.0-15.0) 02/17/25 15:21 Microbiology Microbiology: Microbiology 02/16/25 10:35 Blood Culture (Wb) - Left Forearm Blood Culture - Preliminary No growth in 48 hours. 02/16/25 10:25 Blood Culture (Wb) - Arm Left Blood Culture - Preliminary No growth in 48 hours. 02/16/25 12:51 Urine, Clean Catch Urine Culture - Final Culture exhibits no growth. 02/11/25 07:08 Blood Culture (Wb) - Anticubital Right Blood Culture - Final No growth in 5 days. 02/14/25 12:23 Sputum, Expectorated/Coughed Gram Stain - Final 02/14/25 12:23 Sputum, Expectorated/Coughed Respiratory Culture - Final 02/10/25 10:56 Blood Culture (Wb) - Venous Blood Culture - Final No growth in 5 days. 02/14/25 12:53 Urine, Clean Catch Legionella Antigen - Final 02/14/25 12:53 Urine, Clean Catch Streptococcus pneumoniae Antigen (M - Final 02/09/25 10:38 Blood Culture (Wb) - Anticubital Right Blood Culture - Final No growth in 5 days. 02/13/25 15:57 Mucosa - Nasopharyngeal Respiratory Panel (PCR) - Final 02/08/25 13:26 Blood Culture (Wb) - Anticubital Left Blood Culture - Final No growth in 5 days. 02/08/25 13:26 Blood Culture (Wb) - Anticubital Left Bacteria Detection (PCR) - Final Staphylococcus aureus 02/08/25 13:26 Blood Culture (Wb) - Anticubital Left Blood Culture - Final Staphylococcus aureus 02/08/25 12:49 Urine, Clean Catch Urine Culture - Final Culture exhibits no growth. 02/08/25 17:38 Mucosa - Nasopharyngeal Coronavirus COVID-19 PCR - Final 02/08/25 17:38 Mucosa - Nasopharyngeal Respiratory Panel (PCR) - Final Dosing Weight Weight used for dosin.8 kg Estimated Creatinine Clearance Estimated Creatinine Clearance: 115 Goal Trough Goal Trough: 15-20 mcg/mL Pharmacy Plan for Drug Dosing Pharmacy Plan for Drug Dosing: Vancomycin trough level of 16.0, drawn 12.25hrs post-dose, was within the target range of 15-20. Will continue dosing at 1250mg q12h, and will draw another trough level in four days. Pharmacy Service will continue to monitor and adjust dosing as required. Follow-Up Labs Follow-Up Labs: Trough: Vancomycin Date/Time Labs Ordered Labs to be done on [date and time ordered]: 02/25/25 @5902
[2025-02-21] MEDS: 0.9% Saline Lock 10 ML Syringe IV ×5 (05:43→17:53)
[2025-02-21] MEDS: Vancomycin HCl 1,250 MG in 0.9% Normal Saline (250mL Bag) 250 ML 167 MG IV ×2 (05:44→17:12)
[2025-02-21 05:52] LABS: Anion Gap 13 (5-15); BUN 15 mg/dL (4-19); BUN/Creat Ratio 18.5 RATIO (10-20); Calcium,Total 7.5 mg/dL (7.6-11.0); Carbon Dioxide 28.0 mmol/L (21.0-32.0); Chloride 103 mmol/L (98-108); Estimated Creatinine Clearance 116.42 ml/min (50-250); Glucose 104 mg/dL (70-99); Potassium 3.5 mmol/L (3.3-5.1)
[2025-02-21 06:43] LABS: Neutrophil-Band 7 % (0-5); Neutrophil-Segmented 41 % (47-70); Nucleated Red Bld Cells,Manual 3 % (0-5); Total Cells Counted 100 (MANUAL DIFF)
[2025-02-21 06:45] LABS: Toxic Granulation 2+; Vacuolated Cells 1+
[2025-02-21 06:46] LABS: Tear Drop Cell RARE
--- NOTE | 2025-02-21 07:58 | PN.HOSP_ITS ---
Reason for Visit Chief Complaint: Fever Subjective Subjective Patient has been weaned to room air. Feeling much better overall. Per discussion with case management we can get home health set up for so we will plan for discharge on Thursday. Discussed with Dr. Guzman and he is discussed with patient and his agreement. Still with some intermittent tachycardia related to A-fib. Seems to be improving in frequency. Continue home medications. Patient is asymptomatic for the events. Objective Data Objective Data Vital Signs: Vital Signs Temp Pulse Resp BP Pulse Ox O2 Del Method O2 Flow Rate 98.7 F 148 H 17 124/82 H 94 Room Air 2 02/21/25 07:49 02/21/25 07:52 02/21/25 07:49 02/21/25 07:49 02/21/25 07:49 02/21/25 07:49 02/20/25 10:00 FiO2 90 02/18/25 07:57 Oxygen Flow Rate (L/min) 2 Oxygen Delivery Method Room Air Weight: 95.8 kg Body Mass Index (BMI) 28.6 Intake & Output: Intake and Output for Last 24 Hours 02/19/25 02/20/25 02/21/25 23:59 23:59 23:59 Intake Total 2176 / 2376 1826 / 1826 375 / 375 Output Total 2150 / 2850 1700 / 1700 450 / 450 Balance 26 / -474 126 / 126 -75 / -75 Lab / Micro Data 02/21/25 04:41 02/21/25 04:41 Labs: Laboratory Results - last 24 hr 02/21/25 04:41: WBC 1.1 L*, RBC 2.82 L, Hgb 8.1 L, Hct 25.8 L, MCV 91.5, MCH 28.7, MCHC 31.4 L, RDW Std Deviation 52.1 H, RDW Coeff of Екатерина 15.9 H, Plt Count 217, MPV 10.3, Neut % (Auto) Not Reportable, Absolute Neuts (auto) 0.5 L, A bsolute Lymphs (auto) 0.46 L, Total Counted 100, Neutrophils % (Manual) 41 L, B and Neutrophils % 7 H, Lymphocytes % (Manual) 42 H, Monocytes % (Manual) 6, M etamyelocytes % 3 H, Myelocytes % 1 H, Nucleated RBCs/100 WBC 3, Toxic Granulation 2+, Toxic Vacuolation 1+, Platelet Estimate ADEQUATE, Plt Morphology Comment CLUMPED, Tear Drop Cells RARE, Ovalocytes 2+, Sodium 144, Potassium 3.5, Chloride 103, Carbon Dioxide 28.0, Anion Gap 13, BUN 15, Creatinine 0.80, Estim Creat Clear Calc 116.42, Est GFR (MDRD) Non-Af 101, BUN/Creatinine Ratio 18.5, G lucose 104 H, Calcium 7.5 L, Vancomycin Trough 16.0 H Micro: Microbiology 02/16/25 10:35 Blood Culture (Wb) - Left Forearm Blood Culture - Preliminary No growth in 48 hours. 02/16/25 10:25 Blood Culture (Wb) - Arm Left Blood Culture - Preliminary No growth in 48 hours. 02/16/25 12:51 Urine, Clean Catch Urine Culture - Final Culture exhibits no growth. 02/11/25 07:08 Blood Culture (Wb) - Anticubital Right Blood Culture - Final No growth in 5 days. 02/14/25 12:23 Sputum, Expectorated/Coughed Gram Stain - Final 02/14/25 12:23 Sputum, Expectorated/Coughed Respiratory Culture - Final 02/10/25 10:56 Blood Culture (Wb) - Venous Blood Culture - Final No growth in 5 days. 02/14/25 12:53 Urine, Clean Catch Legionella Antigen - Final 02/14/25 12:53 Urine, Clean Catch Streptococcus pneumoniae Antigen (M - Final 02/09/25 10:38 Blood Culture (Wb) - Anticubital Right Blood Culture - Final No growth in 5 days. 02/13/25 15:57 Mucosa - Nasopharyngeal Respiratory Panel (PCR) - Final 02/08/25 13:26 Blood Culture (Wb) - Anticubital Left Blood Culture - Final No growth in 5 days. 02/08/25 13:26 Blood Culture (Wb) - Anticubital Left Bacteria Detection (PCR) - Final Staphylococcus aureus 02/08/25 13:26 Blood Culture (Wb) - Anticubital Left Blood Culture - Final Staphylococcus aureus 02/08/25 12:49 Urine, Clean Catch Urine Culture - Final Culture exhibits no growth. 02/08/25 17:38 Mucosa - Nasopharyngeal Coronavirus COVID-19 PCR - Final 02/08/25 17:38 Mucosa - Nasopharyngeal Respiratory Panel (PCR) - Final Radiography Diagnostic Testing: Radiology Impression Venous Doppler Study 02/15/25 15:31 Interpretation Summary Deep veins of the bilateral lower extremities are patent and compressible segmentally. There is no evidence of bilateral lower extremity deep vein thrombosis. The bilateral great saphenous veins appear patent and compressible segmentally. Ordering Physician: Lea Scott Referring Physician: Jaquelin Dexter Performed By: Jeanne Jorge RVT Rhythm Strip Rhythm Strip: Sinus Rhythm Rate: 94 Ectopy: None Physical Exam Const alert, oriented x3, no apparent distress and well nourished; Negative for average body habitus or healthy appearing Constitutional Narrative: Overweight, upper middle-aged, white male, sitting up on the edge of the bed, nursing at bedside, appears comfortable, does not appear toxic, looks as good of I seen him during the hospitalization General Appearance: cooperative, well kempt and well developed HEENT normocephalic, head/scalp atraumatic and moist oral mucous membranes HEENT Narrative: No thrush Eyes Eyes Narrative: Conjunctiva pallor bilaterally, no scleral icterus Neck Neck Narrative: Trachea midline Resp normal respiratory effort, no retractions, no use of accessory muscles and clear to auscultation bilaterally Auscultation: Negative for crackles, rales, rhonchi or wheezes Cardio regular rate, regular rhythm, S1 normal heart sound, S2 normal heart sound, no murmurs, no rub, no gallops and no clicks GI normal to inspection, nondistended, normoactive bowel sounds, soft to palpation and non-tender Extremity no clubbing, cyanosis or edema Extremity Narrative: 2+ pedal and radial pulses, no cyanosis or clubbing, trace bilateral lower extremity pitting edema Neuro moves all extremities and no focal motor deficits Speech: speech normal Psych affect normal Psych Narrative: Very pleasant, interacts appropriately Assessment & Plan Assessment/Plan (1) Sepsis: QUALIFIERS: Sepsis type: sepsis due to unspecified organism S epsis acute organ dysfunction status: unspecified Qualified Code(s): A41.9 - Sepsis, unspecified organism (2) SAMANTHA (acute kidney injury): (3) MSSA bacteremia: (4) Pancytopenia: PLAN: Plan Sepsis secondary to MSSA bacteremia secondary to Mediport infection - Mediport has been removed and area appears clean dry and intact - Continue prophylactic acyclovir - Antibiotics at discharge for oral voriconazole and IV Ancef -PICC is in place -Plan is for discharge on Thursday as home health could not be set up until to start antibiotics - ANC is now 500 - ID following and appreciate input Persistent fevers - Tmax in the last 24 hours has been 99.9 - Bone marrow biopsy was performed but results are still pending -Cultures were obtained - Antibiotics per ID -MIAN was unremarkable - Fevers have stayed improved despite being off scheduled Tylenol - Dopplers negative 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 - Platelet count is normalized - Hemoglobin remains stable - White count is trending up with Granix - No signs of acute bleeding -Continue Granix PAF - Patient with intermittent paroxysmal atrial fibrillation--patient still with intermittent bouts of A-fib but does well coming up and is relatively asymptomatic - Continue home diltiazem - Continue metoprolol - Patient not anticoagulated due to thrombocytopenia AML - Patient is currently on oral and IV chemo - Chemo is on hold - Continue home prophylactic medications - Bone marrow is pending - Onc following Essential hypertension - Continue metoprolol - Continue diltiazem History of tobacco abuse - Remote - Encouraged ongoing cessation DVT prophylaxis - Continue subcu Lovenox CODE STATUS -DNR CCA with no intubation Charges/Coding Visit Charges Inpatient E&M: 70611 Subs Hosp L2
[2025-02-21] MEDS: Senna/Docusate Sodium 1 Tablet 2 TABLET PO (08:18)
[2025-02-21] MEDS: VORICONAZOLE IV ×2 (08:19→20:02)
[2025-02-21] MEDS: TBO-FILGRASTIM 480 MCG/0.8 ML ML SC (08:19)
[2025-02-21] MEDS: NORMAL SALINE 0.9% IV ×2 (08:19→20:02)
--- NOTE | 2025-02-21 10:41 | PN.ID_ITS ---
Physical Exam Narrative Feeling better, breathing improved, off O2, no fever Const alert and no apparent distress General Appearance: cooperative Resp Auscultation: rhonchi Cardio regular rate and regular rhythm GI soft to palpation, non-tender and non-distended Skin no rashes or lesions noted ID ID: Route of nutrition/ use of supplements: [] Nutritional Intake: [] IV Site: [] Lay Catheter: [] Assessment & Plan Assessment/Plan (1) Neutropenic fever: PLAN: Neutropenic fever with MSSA bacteremia, suspected source is infected L nasrin st port. Has been on chemo for AML. Elevated tbili, but RUQ and abd CT showed no infection. Bcx clear since 02/09/25. Port removed 02/10/[address] Danielson. Cont acyclovir for prophylaxis. Ongoing fever, nodular infiltrate on CT. Resp pcr panel neg. Pending ebv, cmv, sputum cx, fungal sputum cx, aspergillus, histo. Will cont vanc, marlene, vori. MIAN neg for endocarditis. Bone marrow bx results pending. Had some sinus congestion, CT showed sinusitis. Fever and counts improved. Plan on home tomorrow, wrote for 4 weeks total iv abx, stop date iv cefazolin 03/10/25 with weekly labs. Will cont po vori x10 days at discharge. Will follow, d/w primary team. (2) MSSA bacteremia: (3) SAMANTHA (acute kidney injury):
--- NOTE | 2025-02-21 13:20 | CASEMGMT ---
Patient has been accepted by [facility] with planned start of care for . Patient is covered 100% for IV ATBs. Script received and sent to [facility] and [facility]. TIM ST updated patient to discharge plan. Patient had no further questions or concerns.
[2025-02-21] MEDS: Potassium Chloride Oral Tablet 20 MEQ 40 MEQ PO (17:05)
[2025-02-21] MEDS: 0.9 % NaCl (Sterile) Posiflush 10 mL IV (22:56)
[2025-02-22 03:02] VITALS: BP 118/71; PULSE 112; RESP 18; TEMP 36.9; O2SAT 95
[2025-02-22] MEDS: Vancomycin HCl 1,250 MG in 0.9% Normal Saline (250mL Bag) 250 ML 167 MG IV (04:13)
[2025-02-22 06:01] LABS: Hematocrit 26.0 % (40-54); Hemoglobin 8.4 g/dL (13.0-16.5); Immature Granulocytes Count 0.590 X10^3/uL (0.0-0.0); Mean Corp Hgb Conc 32.3 g/dL (32-36); Mean Corpuscular Volume 87.8 fL (80-94); Mean Platelet Vol. 9.5 fl (6.2-12.0); NRBC Flagged by Analyzer 2.6 % (0-5); POSITIVE COUNT YES; POSITIVE DIFFERENTIAL YES; POSITIVE MORPHOLOGY YES; Platelet Count 289 K/mm3 (150-450); RBC Distribution Width CV 15.8 % (11.6-14.6); RBC Distribution Width SD 49.4 fl (35.1-43.9); Red Blood Count 2.96 M/mm3 (4.6-6.2); White Blood Count 2.3 K/mm3 (4.4-11.0)
[2025-02-22] MEDS: Meropenem 1 GM in 0.9% Normal Saline (100mL MB+) 100 ML IV ×2 (06:08→13:16)
[2025-02-22 06:18] LABS: Differential Indicated SCAN CRITERIA MET
[2025-02-22 06:45] VITALS: O2SAT 95
[2025-02-22 06:57] LABS: Anion Gap 12 (5-15); BUN 12 mg/dL (4-19); BUN/Creat Ratio 15.8 RATIO (10-20); Calcium,Total 7.8 mg/dL (7.6-11.0); Carbon Dioxide 28.3 mmol/L (21.0-32.0); Chloride 105 mmol/L (98-108); Estimated Creatinine Clearance 119.40 ml/min (50-250); Glucose 99 mg/dL (70-99); Potassium 3.4 mmol/L (3.3-5.1)
[2025-02-22 07:49] LABS: Neutrophil-Band 1 % (0-5); Neutrophil-Segmented 74 % (47-70); Nucleated Red Bld Cells,Manual 4 % (0-5); Total Cells Counted 100 (MANUAL DIFF)
[2025-02-22 07:56] LABS: Scan Smear per Review Criteria MANUAL DIFF
[2025-02-22 08:36] VITALS: BP 136/78; PULSE 83; RESP 17; TEMP 36.7; O2SAT 94
[2025-02-22 08:37] VITALS: PULSE 83
[2025-02-22] MEDS: 0.9% Saline Lock 10 ML Syringe IV ×5 (08:37→17:00)
[2025-02-22] MEDS: Senna/Docusate Sodium 1 Tablet 2 TABLET PO (08:38)
[2025-02-22] MEDS: VORICONAZOLE IV (08:39)
[2025-02-22] MEDS: NORMAL SALINE 0.9% IV (08:39)
[2025-02-22] MEDS: TBO-FILGRASTIM 480 MCG/0.8 ML ML SC (08:39)
[2025-02-22] MEDS: 0.9% Normal Saline (250mL Bag) 250 ML 15 ML IV (09:10)
--- NOTE | 2025-02-22 13:20 | DS.PCM_ITS ---
Providers Date of Admission: 02/08/25 Date of Discharge: 02/22/25 Primary Care Physician: Dr. Jaquelin Dexter MD Consultations 02/08/25 16:51 Consult: Infectious Disease Routine Consulting Provider: Brice Montesinos Reason for Consult: Neutropenic fever, unclear source EMERGENT Consult: No MD Notified: Yes Date Notified: 02/08/25 Time Notified: 16:26 Method of Notification: Text 02/09/25 09:55 Consult: General Surgery Routine Consulting Provider: Dalton Danielson Reason for Consult: port removal, MSSA bacteremia, pancytopenia EMERGENT Consult: No MD Notified: Yes Date Notified: 02/09/25 Time Notified: 10:10 Method of Notification: Text 02/09/25 11:44 Consult: Cardiology Routine Consulting Provider: Zaria Martinez Reason for Consult: a-fib EMERGENT Consult: No Notified: Yes Date Notified: 02/09/25 Time Notified: 12:17 Method of Notification: Text 02/15/25 15:28 Consult: Oncology/Hematology Routine Consulting Provider: [facility]) Reason for Consult: AML with neutropenic fever EMERGENT Consult: No Notified: Yes Date Notified: 02/15/25 Time Notified: 15:29 Method of Notification: Text Reason For Visit: NEUTROPENIC FEVER Diagnosis Discharge Diagnosis (1) Sepsis: Status: Acute Code(s): A41.9 - Sepsis, unspecified organism Qualifiers: Sepsis acute organ dysfunction status: unspecified Sepsis type: sepsis due to unspecified organism Qualified Code(s): A41.9 - Sepsis, unspecified organism (2) SAMANTHA (acute kidney injury): Status: Acute Code(s): N17.9 - Acute kidney failure, unspecified (3) MSSA bacteremia: Status: Acute Code(s): R78.81 - Bacteremia; B95.61 - Methicillin susceptible Staphylococcus aureus infection as the cause of diseases classified elsewhere (4) Pancytopenia: Status: Acute Code(s): D61.818 - Other pancytopenia Medications at Discharge Home Medications acetaminophen 500 mg tablet (Tylenol Extra Strength) 500 mg PO Q6H PRN pain 10/14/23 diltiazem HCl 180 mg capsule,extended release 24 hr 180 mg PO DAILY 90 days #90 caps 09/22/24 acyclovir 800 mg tablet 800 mg PO BID 11/25/24 allopurinol 300 mg tablet 300 mg PO .COMPLEX #30 tabs 12/26/24 ondansetron 8 mg disintegrating tablet 8 mg PO Q8H PRN nausea and vomiting #30 tabs 12/26/24 venetoclax 100 mg tablet (Venclexta) 200 mg PO QDAY 12/29/24 cefazolin 2 gram intravenous solution 2 g IV Q8H 16 days 02/21/25 voriconazole 200 mg tablet 200 mg PO Q12H #20 tabs 02/21/25 metoprolol tartrate 25 mg tablet 75 mg (3 x 25 mg) PO BID 30 days #180 tabs 02/22/25 potassium chloride 10 mEq tablet,extended release (Klor-Con) 10 meq PO TID 3 days #9 tabs 02/23/25 Hospital Course Operations None Procedures 2-D Echocardiogram and Transesophageal Echo Summary of Care Provided Minutes Spent on Discharge: 45 Hospital Course: Patient is a 59 y/o male with a PMH as outlined who was admitted via the ED on 02/08/2025 with a complaint of fever. Hs history ncluded afib and paroxysmal SVT, pancytponemia and leukemia. He had bloodwork on the day of admission which swhoed pancytopenia with Hb of 6.9 and platelets of 35. He was undergoing chemotherapy and had the bloodwork done before. He was sent to the ED based on the bloodwork and fever due to concern for neutropenic fever. BLoodwork also showed elevated Cr. CT abdomen and pelvis was negative for any acute pathology. He was hydrated with IVF, blood cultures were obtained and he was started on IV cefepime. Patient had a very prolonged and protracted hospital course. Blood cultures grew MSSA and ID was consulted. He had TTE which showed no evidence of vegetation. He had MIAN which also showed no evidence of vegetation. His mediport was removed by general surgery. Infectious Disease was also consulted. He was transfused with blood also and given granix due to the anemia and neutropenia respectively. He had a bone marrow biopsy done during this admission too, results of which were pending at time of discharge. He was transitioned to IV cefazolin and also placed on acyclovir and voriconazole. His wbc and absolute neutrophil counts had improved at time of discharge, so granix was dc'd. Hospital course was also complicated by afib with RVR, and his metoprolol was increased to 75mg bid. He was eventually discharged home with home health, with a PICC line in place for IV cefazolin for 4 more weeks with a stop date of 03/10/2025, and on PO voriconazole for 10 more days, with weekly blood work. He is to follow up with ID on outpatient basis and with oncology as well. Patient was seen and examined prior to discharge with his nurse by his bedside. He felt well and had no active complaints. Review of systems was otherwise negative. Labs and vitals reviewed. Home meds reviewed and reconciled. Physical Exam Const alert, oriented x3 and no apparent distress General Appearance: cooperative and comfortable Orientation / Consciousness: awake Exam Limitations: no limitations HEENT normocephalic, head/scalp atraumatic, hearing grossly normal bilaterally and moist oral mucous membranes Mouth: oral and palatal mucosa normal Eyes EOMs intact bilaterally and conjunctivae normal Neck supple and no JVD Resp normal respiratory effort, no retractions, no use of accessory muscles and clear to auscultation bilaterally Cardio regular rate, regular rhythm, S1 normal heart sound, S2 normal heart sound and no murmurs GI normal to inspection, nondistended, normoactive bowel sounds, soft to palpation, non-tender and non-distended Extremity normal to inspection, full ROM and no clubbing, cyanosis or edema Skin no rashes or lesions noted Neuro oriented x3, CN's II-XII intact bilaterally, moves all extremities and no focal motor deficits Sensorium / Orientation: awake and alert Motor Exam: strength 5/5 throughout Psych affect normal Weight / BMI Weight Weight: 211 lb 3.245 oz Body Mass Index (BMI) 28.6 ABG / Lab / Microbiology Data 02/22/25 05:17 02/22/25 05:17 Laboratory: Laboratory Results - last 24 hr 02/22/25 05:17: WBC 2.3 L, RBC 2.96 L, Hgb 8.4 L, Hct 26.0 L, MCV 87.8, MCH 28.4, MCHC 32.3, RDW Std Deviation 49.4 H, RDW Coeff of Екатерина 15.8 H, Plt Count 289, MPV 9.5, Immature Gran % (Auto) SURGICAL ATTENDANT, Neut % (Auto) SURGICAL ATTENDANT, Lymph % (Auto) SURGICAL ATTENDANT, [place] % (Auto) SURGICAL ATTENDANT, Eos % (Auto) SURGICAL ATTENDANT, Baso % (Auto) SURGICAL ATTENDANT, Absolute Neuts (auto) 1.7 L , Absolute Lymphs (auto) 0.28 L, Total Counted 100, Neutrophils % (Manual) 74 H, Band Neutrophils % 1, Lymphocytes % (Manual) 12 L, Monocytes % (Manual) 4, M etamyelocytes % 5 H, Myelocytes % 3 H, Blast Cells % 1 H*, Nucleated RBC % 2.6, Nucleated RBCs/100 WBC 4, Platelet Estimate ADEQUATE, Sodium 146 H, Potassium 3.4, Chloride 105, Carbon Dioxide 28.3, Anion Gap 12, BUN 12, Creatinine 0.78, Estim Creat Clear Calc 119.40, Est GFR (MDRD) Non-Af 101, BUN/Creatinine Ratio 15.8, Glucose 99, Calcium 7.8 Microbiology: Microbiology 02/16/25 10:25 Blood Culture (Wb) - Arm Left Blood Culture - Final No growth in 5 days. 02/16/25 10:35 Blood Culture (Wb) - Left Forearm Blood Culture - Final No growth in 5 days. 02/14/25 12:23 Sputum, Expectorated/Coughed Fungal Smear - Final 02/16/25 12:51 Urine, Clean Catch Urine Culture - Final Culture exhibits no growth. 02/11/25 07:08 Blood Culture (Wb) - Anticubital Right Blood Culture - Final No growth in 5 days. 02/14/25 12:23 Sputum, Expectorated/Coughed Gram Stain - Final 02/14/25 12:23 Sputum, Expectorated/Coughed Respiratory Culture - Final 02/10/25 10:56 Blood Culture (Wb) - Venous Blood Culture - Final No growth in 5 days. 02/14/25 12:53 Urine, Clean Catch Legionella Antigen - Final 02/14/25 12:53 Urine, Clean Catch Streptococcus pneumoniae Antigen (M - Final 02/09/25 10:38 Blood Culture (Wb) - Anticubital Right Blood Culture - Final No growth in 5 days. 02/13/25 15:57 Mucosa - Nasopharyngeal Respiratory Panel (PCR) - Final 02/08/25 13:26 Blood Culture (Wb) - Anticubital Left Blood Culture - Final No growth in 5 days. 02/08/25 13:26 Blood Culture (Wb) - Anticubital Left Bacteria Detection (PCR) - Final Staphylococcus aureus 02/08/25 13:26 Blood Culture (Wb) - Anticubital Left Blood Culture - Final Staphylococcus aureus 02/08/25 12:49 Urine, Clean Catch Urine Culture - Final Culture exhibits no growth. 02/08/25 17:38 Mucosa - Nasopharyngeal Coronavirus COVID-19 PCR - Final 02/08/25 17:38 Mucosa - Nasopharyngeal Respiratory Panel (PCR) - Final D/C Instructions Discharge Activity: Return to Normal Activity Weight Bearing Status: Weight bearing as tolerated Call your doctor if you observe: Fever of 101 or Higher, Shortness of breath, Dizziness, Swelling in the ankles, Chest pain and Increased palpitations (irregular heartbeat) DC O2, CPAP, BIPAP Needs Home O2 Discharge instructions: No DC home with Oxygen: No Meaningful Use Info Meaningful Use Meaningful Use Diagnoses (Choose all that apply): None applicable Discharge Plan Admission Admit Date/Time: 02/08/25 16:08 Primary Reason for Your Visit: neutropenic fever Attending Provider: Chiara Burger Primary Care Provider: Jaquelin Dexter Consulting Providers: Brice Montesinos; Beverly Bhatt; Dalton Danielson; Zaria Martinez; Rico Gonzales; Morgan Durham; Abel Summers; Db Walden; Wilmer Carlos; Brice Bustillo; Jose Benjamin; Brian Zimmerman; Carlos Jimenez; Annabelle Frazier NP; Lea Scott Instructions Patient Instructions: Neutropenia, ED Bacteremia, Suspected (Adult) Additional Instructions / Restrictions: to have weekly CBC, BMP and LFT whilst on IV cefazolin. Please see PCP for order. Discharge Orders/Prescriptions Prescriptions: New cefazolin 2 gram recon soln 2 g IV Q8H 16 Days Rx Instructions: stop date 03/10/25. Dx: MSSA bacteremia. Weekly bmp, cbc, and LFT. Fax to [phone]. Routine picc care per protocol. voriconazole 200 mg tablet 200 mg PO Q12H Qty: 20 0RF Rx Instructions: administer on empty stomach, at least 1 hour before or after meal(s) metoprolol tartrate 25 mg Tablet 75 mg PO BID 30 Days Qty: 180 2RF Continued acetaminophen [Tylenol Extra Strength] 500 mg tablet 500 mg PO Q6H PRN (Reason: pain ) diltiazem HCl 180 mg capsule,extended release 24hr 180 mg PO DAILY 90 Days Qty: 90 3RF ondansetron 8 mg tablet,disintegrating 8 mg PO Q8H PRN (Reason: nausea and vomiting) Qty: 30 1RF allopurinol 300 mg tablet 300 mg PO .COMPLEX Qty: 30 0RF Rx Instructions: 300 mg orally daily; start 3 days prior to Venclexta acyclovir 800 mg tablet 800 mg PO BID Venclexta 100 mg tablet 200 mg PO QDAY Discontinued metoprolol tartrate 50 mg tablet 25 mg PO BID 90 Days Qty: 90 3RF No Action potassium chloride [Klor-Con 10] 10 mEq tablet extended release 10 meq PO TID 3 Days Qty: 9 0RF Referrals / Follow Up: Jaquelin Dexter MD [Primary Care Provider] - 03/02/25 1:00 pm (appointment with Andrew Gama ) Brice Montesinos MD [Med Staff - Active Staff] - 03/08/25 2:00 pm Disposition Disposition (needs filled in before D/C Order can be placed): Home Health Service Charges/Coding Visit Charges Inpatient E&M: 93337 Disch Hosp >30min
--- NOTE | 2025-02-22 13:20 | DCINST_ITS ---
Discharge Instructions DC O2, CPAP, BIPAP needs Home O2 Discharge instructions: No Dressing / Incision Discharge Activity: Return to Normal Activity Weight Bearing Status: Weight bearing as tolerated Dressing / Incision Call your doctor if you observe: Fever of 101 or Higher, Shortness of breath, Dizziness, Swelling in the ankles, Chest pain and Increased palpitations (irregular heartbeat) Follow Up Care Test Results: Test results from this visit will be discussed in further detail at your follow- up appointment, if applicable. Discharge Plan Admission Admit Date/Time: 02/08/25 16:08 Primary Reason for Your Visit: neutropenic fever Attending Provider: Chiara Burger Primary Care Provider: Jaquelin Dexter Consulting Providers: Brice Montesinos; Beverly Bhatt; Dalton Danielson; Zaria Martinez; Rico Gonzales; Morgan Durham; Abel Summers; Db Walden; Wilmer Carlos; Brice Bustillo; Jose Benjamin; Brian Zimmerman; Carlos Jimenez; Annabelle Frazier NP; Lea Scott Instructions Patient Instructions: Neutropenia, ED Bacteremia, Suspected (Adult) Additional Instructions / Restrictions: to have weekly CBC, BMP and LFT whilst on IV cefazolin. Please see PCP for order. Discharge Orders/Prescriptions Prescriptions: New cefazolin 2 gram recon soln 2 g IV Q8H 16 Days Rx Instructions: stop date 03/10/25. Dx: MSSA bacteremia. Weekly bmp, cbc, and LFT. Fax to [phone]. Routine picc care per protocol. voriconazole 200 mg tablet 200 mg PO Q12H Qty: 20 0RF Rx Instructions: administer on empty stomach, at least 1 hour before or after meal(s) metoprolol tartrate 25 mg Tablet 75 mg PO BID 30 Days Qty: 180 2RF Continued acetaminophen [Tylenol Extra Strength] 500 mg tablet 500 mg PO Q6H PRN (Reason: pain ) diltiazem HCl 180 mg capsule,extended release 24hr 180 mg PO DAILY 90 Days Qty: 90 3RF ondansetron 8 mg tablet,disintegrating 8 mg PO Q8H PRN (Reason: nausea and vomiting) Qty: 30 1RF allopurinol 300 mg tablet 300 mg PO .COMPLEX Qty: 30 0RF Rx Instructions: 300 mg orally daily; start 3 days prior to Venclexta acyclovir 800 mg tablet 800 mg PO BID Venclexta 100 mg tablet 200 mg PO QDAY Discontinued metoprolol tartrate 50 mg tablet 25 mg PO BID 90 Days Qty: 90 3RF Referrals / Follow Up: Jaquelin Dexter MD [Primary Care Provider] - Within 1 Week Brice Montesinos MD [Med Staff - Active Staff] - Within 2 Weeks Disposition Disposition (needs filled in before D/C Order can be placed): Home, Self Care
--- NOTE | 2025-02-22 13:33 | CASEMGMT ---
Patient has order for discharge. TIM ST updated [facility], atb to be delivered by end of day to patient home. TIM ST updated [facility], start of care scheduled for tomorrow at 0800. TIM [address] updated patient, patient had no further questions or concerns. TIM ST updated discharge plan.
[2025-02-22 16:18] VITALS: BP 146/82; PULSE 82; RESP 17; TEMP 37.2; O2SAT 95
== END 2025-02-22 17:32 | disposition home health service (06) | DRG 314 ==
LOC: ED 15:50 → PCU 16:21
PROVIDERS: Anesthesiology; Family Medicine; Internal Medicine; Internal Medicine Infectious Disease; Surgery; Admitting Provider Internal Medicine; Emergency Provider Emergency Medicine; PCP Internal Medicine; Referring Provider Emergency Medicine; Visit Provider Student in an Organized Health Care Education/Training Program
PROC: 0JPT0WZ Removal of Totally Implantable Vascular Access Device from Trunk Subcutaneous Tissue and Fascia, Open Approach (ICD-10-PCS; CPT 36590; principal; 2025-02-10 07:15)
DX: T80.211A Bloodstream infection due to central venous catheter, initial encounter (principal); D61.810 Antineoplastic chemotherapy induced pancytopenia; A41.01 Sepsis due to Methicillin susceptible Staphylococcus aureus; C92.00 Acute myeloblastic leukemia, not having achieved remission; N17.9 Acute kidney failure, unspecified; Z66 Do not resuscitate; I10 Essential (primary) hypertension; Z95.828 Presence of other vascular implants and grafts; I48.0 Paroxysmal atrial fibrillation; E87.6 Hypokalemia; R09.02 Hypoxemia; R50.81 Fever presenting with conditions classified elsewhere; R94.5 Abnormal results of liver function studies; X58.XXXA Exposure to other specified factors, initial encounter; Z79.899 Other long term (current) drug therapy; Z87.891 Personal history of nicotine dependence
CPT/HCPCS: 36415; 36569; 36591; 51702; 70487; 71045; 71046; 71260; 74177; 76705; 77012; 80048; 80053; 80076; 80202; 81001; 83605; 83735; 84100; 84443; 85018; 85025; 85610; 85730; 86003; 86644; 86664; 86665; 86698; 86850; 86900; 86901; 86965; 87040; 87070; 87077; 87086; 87149; 87186; 87205; 87206; 87449; 87497; 87633; 87635; 93005; 93306; 93312; 93320; 93325; 93970; 94640; 99156; 99285; J2185; P9016; P9035; P9040; Q9967; A4216; J1447; J1938; J3465

== ENCOUNTER → 2025-02-28 | Outpatient (CLI) | payer OTHER, SELFPAY ==
[2025-02-28 10:04] LABS: Hematocrit 24.2 % (40-54); Hemoglobin 7.6 g/dL (13.0-16.5); Mean Corp Hgb Conc 31.4 g/dL (32-36); Mean Corpuscular Volume 90.3 fL (80-94); Mean Platelet Vol. 9.8 fl (6.2-12.0); POSITIVE COUNT YES; POSITIVE DIFFERENTIAL YES; POSITIVE MORPHOLOGY YES; Platelet Count 228 K/mm3 (150-450); RBC Distribution Width CV 17.2 % (11.6-14.6); RBC Distribution Width SD 54.4 fl (35.1-43.9); Red Blood Count 2.68 M/mm3 (4.6-6.2); White Blood Count 4.5 K/mm3 (4.4-11.0)
[2025-02-28 10:46] LABS: Anion Gap 12 (5-15); BUN 11 mg/dL (4-19); BUN/Creat Ratio 10.7 RATIO (10-20); Calcium,Total 8.0 mg/dL (7.6-11.0); Carbon Dioxide 27.2 mmol/L (21.0-32.0); Chloride 101 mmol/L (98-108); Glucose 100 mg/dL (70-99); Magnesium 2.0 mg/dL (1.5-2.2); Potassium 3.8 mmol/L (3.3-5.1); Pro- Brain NATRIURETIC PEPTIDE 4759 pg/mL (<=900)
[2025-02-28 11:21] LABS: Neutrophil-Segmented 78 % (47-70); Total Cells Counted 100 (MANUAL DIFF)
[2025-02-28 11:22] LABS: Red Cell Morphology NORM C+C NORMAL (NORM C&C)
[2025-02-28 11:23] LABS: Differential Indicated MANUAL DIFF; Scan Smear per Review Criteria MANUAL DIFF
== END | disposition home or self-care (01) ==
LOC: LAB 08:45
PROVIDERS: PCP Internal Medicine; Referring Provider Nurse Practitioner Gerontology; Visit Provider Nurse Practitioner Gerontology
DX: I48.0 Paroxysmal atrial fibrillation (principal); R06.02 Shortness of breath
CPT/HCPCS: 36415; 80048; 83735; 83880; 85025

== ENCOUNTER → 2025-04-03 | Outpatient (CLI) | payer OTHER, SELFPAY | END | disposition home or self-care (01) | LOC: PSN 11:45 | PROVIDERS: PCP Internal Medicine; Referring Provider Nurse Practitioner Gerontology; Visit Provider Nurse Practitioner Gerontology | DX: I48.0 Paroxysmal atrial fibrillation (principal) | CPT/HCPCS: 93225; 93226 ==